=== PATIENT | male | born 1975 | race Caucasian/White ===

== ENCOUNTER 2023-08-14 10:38 | Outpatient (CLI) | payer BC, SELFPAY | END 2023-08-14 10:39 | disposition home or self-care (01) | PROVIDERS: PCP Family Medicine; Visit Provider Family Medicine | DX: Z00.00 Encounter for general adult medical examination without abnormal findings (principal); I10 Essential (primary) hypertension; R74.8 Abnormal levels of other serum enzymes; F10.10 Alcohol abuse, uncomplicated; Z13.6 Encounter for screening for cardiovascular disorders; Z13.0 Encounter for screening for diseases of the blood and blood-forming organs and certain disorders involving the immune mechanism | CPT/HCPCS: 80053; 80061 ==

== ENCOUNTER 2023-10-31 09:14 | Outpatient (CLI) | payer BC, SELFPAY ==
[2023-10-31 11:27] LABS: Hemoglobin A1C* 4.4 % (0-5.6)
== END 2023-10-31 09:15 | disposition home or self-care (01) ==
LOC: WOUND 09:14
PROVIDERS: PCP Family Medicine; Visit Provider Nurse Practitioner Family
DX: L89.893 Pressure ulcer of other site, stage 3 (principal); Z89.611 Acquired absence of right leg above knee; L24.A0 Irritant contact dermatitis due to friction or contact with body fluids, unspecified; E88.810 Metabolic syndrome
CPT/HCPCS: 11042; 36415; 73552; 83036; 87070; 87186; 97602; 99213

== ENCOUNTER 2023-12-04 13:39 | Outpatient (CLI) | payer OTHER, SELFPAY | END 2023-12-04 13:40 | disposition home or self-care (01) | PROVIDERS: PCP Family Medicine; Visit Provider Nurse Practitioner Family | DX: L89.893 Pressure ulcer of other site, stage 3 (principal); L24.A0 Irritant contact dermatitis due to friction or contact with body fluids, unspecified; E88.810 Metabolic syndrome; Z89.611 Acquired absence of right leg above knee | CPT/HCPCS: 97602; G0463 ==

== ENCOUNTER 2023-12-25 11:20 | Outpatient (CLI) | payer OTHER, SELFPAY | END 2023-12-25 11:21 | disposition home or self-care (01) | LOC: WOUND 11:20 | PROVIDERS: PCP Family Medicine; Visit Provider Nurse Practitioner Family | DX: L89.893 Pressure ulcer of other site, stage 3 (principal); L24.A0 Irritant contact dermatitis due to friction or contact with body fluids, unspecified; E88.810 Metabolic syndrome; Z89.611 Acquired absence of right leg above knee | CPT/HCPCS: 97602 ==

== ENCOUNTER 2024-02-12 10:42 | Outpatient (CLI) | payer OTHER, SELFPAY | END 2024-02-12 10:43 | disposition home or self-care (01) | LOC: WOUND 10:42 | PROVIDERS: PCP Family Medicine; Visit Provider Nurse Practitioner Family | DX: L89.893 Pressure ulcer of other site, stage 3 (principal); E88.810 Metabolic syndrome; L24.A0 Irritant contact dermatitis due to friction or contact with body fluids, unspecified; Z89.611 Acquired absence of right leg above knee | CPT/HCPCS: 97602; G0463 ==

== ENCOUNTER 2024-02-26 10:27 | Outpatient (CLI) | payer OTHER, SELFPAY | END 2024-02-26 10:28 | disposition home or self-care (01) | LOC: WOUND 10:27 | PROVIDERS: PCP Family Medicine; Visit Provider Nurse Practitioner Family | DX: L89.893 Pressure ulcer of other site, stage 3 (principal); L24.A0 Irritant contact dermatitis due to friction or contact with body fluids, unspecified; E88.810 Metabolic syndrome; Z86.14 Personal history of Methicillin resistant Staphylococcus aureus infection; Z89.611 Acquired absence of right leg above knee | CPT/HCPCS: 97602; G0463 ==

== ENCOUNTER 2024-03-11 09:07 | Outpatient (CLI) | payer OTHER, SELFPAY ==
--- NOTE | 2024-03-11 09:15 | MR_ITS ---
Patient: JOSE ROMERO Facility:?[facility] R[facility] Patient ID:?[id number] Site Patient ID:?[id number]. Site :?[id number] Study:?MRI-Extremity Right WO/W DOTAREM 20ML-03/11/2024 12:00:27 PM Ordering Physician:MACIEL Final Report: INDICATION: Pressure sore after amputation. Evaluate for osteomyelitis. TECHNIQUE: Noncontrast and contrast-enhanced MRI of the right leg. Uddqw-dy-ryyx includes the patient`s stump. 20 mL Dotarem intravenous gadolinium was administered for the postcontrast portion of the study. COMPARISON: No prior. FINDINGS: Postsurgical changes of above the knee amputation of the right leg. There is soft tissue edema like signal and increased enhancement within the stump which may reflect cellulitis changes. Trace fluid along me lateral margin of the stump is noted on coronal STIR image number 15 of series 6. Finding not highly suggestive of abscess. There is some limited bone marrow edema within the intramedullary space of the distal femur without confluent effacement of intramedullary fatty marrow to suggest osteomyelitis. There is thickening of the distal sciatic nerve over an approximately 5-6 centimeter longitudinal extent of the nerve which may indicate an element of stump neuroma.. IMPRESSION: 1. Postsurgical changes of above the knee amputation, right leg. 2. Soft tissue signal abnormality may indicate cellulitis changes. 3. No definitive abscess. 4. Limited reactive marrow edema within the central intramedullary space of the distal femur but without confluent effacement of fatty marrow to suggest osteomyelitis. 5. Fairly long segment thickening of the sciatic nerve distally which may indicate stump neuroma changes. Dictated by Uday Keane MD @ 03/12/2024 9:50:45 AM Signed by:?Uday Keane MD @03/12/2024 9:50:45 AM (Electronic Signature)
== END 2024-03-11 09:08 | disposition home or self-care (01) ==
PROVIDERS: PCP Family Medicine; Visit Provider Nurse Practitioner Family
DX: L89.899 Pressure ulcer of other site, unspecified stage (principal); Z89.611 Acquired absence of right leg above knee
CPT/HCPCS: 73720; 97602; A9575

== ENCOUNTER 2024-03-17 21:48 | Outpatient (CLI) | payer OTHER, SELFPAY ==
--- OUTSIDE RECORDS SUMMARY | 2024-03-25 15:55 | XMS_ITS | Clinical Summary ---
Author Name Unknown Organization [facility] Address [place], [place] [address] Care Team Providers Care Oriental Rug Stretcher Name Role Phone Odette Bowman DO Primary [...] cm (5' 11) 01/12/2018 11: 30 AM FLYING I INSTRUCTOR Body Mass Index 32.37 01/12/2018 11:30 AM FLYING I INSTRUCTOR Plan of Treatment Health Maintenance Due Date [...] CHOLESTEROL,TOTA L 257(H) 100 - 199 mg/dL [facility] TRIGLYCERIDES 514(H) <150 mg/dL [facility] HDL CHOLESTEROL 54 >40 mg/dL [facility] CHOL/HDL RATIO 4.76(H) <4.50 [facility] NON-HDL CHOLESTEROL 203 Undefined mg/dL [facility] LDL CHOLESTEROL ?? Invalid LDL when Trig >400 reflexed to measured LDL. [facility] PATIENT STATUS Fasting [facility] Blood specimen (specimen) BLOOD SPECIMEN / Unknown 02/11/2014 8:12 AM CDT 02/11/2014 8:06 AM CDT Anali Bailey MD CHEMISTRY [facility] INTERNAL ZIP [id number] [address] [place] [id number] from Last 3 Months or Most Recently Relevant to Health Maintenance Additional Health Concerns Infection Onset Date Last Indicated MRSA Comment:Soft tissue infection of right stump 10/201711/28/2017 0 11/28/2017 Advance Directives * Full Code (Latest Code Status on File) Date Activated Date Inactivated Comments 12/22/2016 11:17 PM 12/24/2016 8:25 PM Question Answer Comments Code Status Discussion: Per Existing Order Care Teams Oriental Rug Stretcher Relationship Specialty [place] [address] [place] [address] PCP - General Family Practice 11/29/17
== END 2024-03-17 21:49 | disposition home or self-care (01) ==
LOC: AMB 03-25 15:53
PROVIDERS: PCP Family Medicine; Visit Provider Family Medicine
DX: F10.129 Alcohol abuse with intoxication, unspecified (principal); F91.9 Conduct disorder, unspecified
CPT/HCPCS: A0425; A0429

== ENCOUNTER 2024-03-17 22:26 | Emergency (ER) | payer OTHER, SELFPAY ==
[2024-03-17 22:32] VITALS: BP 126/84; PULSE 76; RESP 16; TEMP 36.3; O2SAT 94; BMI 34.9
--- NOTE | 2024-03-17 22:46 | ED.GENADULT ---
HPI - General Adult General Chief complaint: Alcohol/Intoxication Stated complaint: ETOH Time Seen by Provider: 03/17/24 22:46 History of Present Illness HPI narrative: Pt was at friend, Sony's house, was drinking, intoxicated per EMS. Law enforcement was called, worried about pt wound on amputated leg and requesting evaluation. Pt does admit to 4 bacardi cokes today, declined detox per EMS. Pt drinks daily. Does admit to increased pain at sore, stump site, increased redness. denies fever or chills. 49-year-old man presenting to the emergency department brought by EMS. Concern of potential infection at right pdoal-ocd-vxan amputation stump. Apparently was at a friend's house drinking his usual Bacardi and Coke. It is unclear to me if there was an altercation with any case police were called who or to assist him home. Upon arrival home were concerned about potential infection and encouraged him to be evaluated in the emergency department. 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 Has had some surgical revisions and debridement since. Is seen regularly by the wound care clinic. It appears that was last seen about 6 days ago and is currently being seen about every 2 weeks. He reports having been treated for MRSA finishing treatment 10 days ago and now using regular vinegar baths/soaks. He feels that his stump/wound looks good. So much better than before. He does state that he has pain there all the time; this isn't new. The prosthetic does aggravate it. Without the prosthetic on he does feel quite comfortable. He has not had any fever. No new drainage. 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 Acknowledges that it is harder to do things that he used to enjoy doing like camping. Is now . Denies any SI or HI at this time. Mr. Taofya does endorse drinking every day. He is not interested in detox noting that he has been through [facility]. He is a Restorationism and has done the Restorationism thing he says. Does have a 14-year-old daughter who he admits historically has enjoyed camping. Prosthetic cares are through the limb lab Related Data Previous Rx's Medication Instructions Recorded amoxicillin 500 mg capsule 2,000 mg (4 x 500 mg) PO ONCE #4 06/22/22 caps gabapentin 300 mg capsule 900 - 1,200 mg (3 - 4 x 300 mg) PO 04/12/23 TID #900 caps naltrexone 50 mg tablet 50 mg PO QDAY #90 tabs 06/01/23 fluoxetine 40 mg capsule 40 mg PO QDAY #90 caps 06/18/23 losartan 50 mg tablet 50 mg PO QDAY #90 tabs 08/14/23 clotrimazole-betamethasone 1 1 applic topical BID #45 grams 12/04/23 %-0.05 % topical cream sildenafil (pulm.hypertension) 20 See Rx Instructions PO QDAY PRN 12/15/23 mg tablet sexual activity #30 tabs Allergies Allergy/AdvReac Type Severity Reaction Status Date / Time No Known Drug Allergies Allergy Verified 08/14/23 10:17 Review of Systems Status of ROS: Reports: 6 or more systems reviewed and unremarkable except as noted in History and below PFSH PFS Surgical History Status post above-knee amputation of right lower extremity ?Z89.611 - Acquired absence of right leg above knee (ICD-10) History of oral surgery (05/21/12) ?Z98.890 - Other specified postprocedural states (ICD-10) Social History What is your current living situation?: I presently have a place to live Problems where you live: no known problems In the past 12 months, utilities in danger of being shut off: no In past 12 months, lack of transportation kept you from medical appts, meetings, work, or getting things needed for daily living: no In the past 12 mos, have been you worried that your food would run out before you had money to buy more?: never true In the past 12 mos, the food you bought just didn't last and you didn't have money to buy more?: never true Smoking Status: Never smoker How often does anyone, including family, friends and others, physically hurt you: never How often does anyone, including family, friends and others, insult or talk down to you: never How often does anyone, including family, friends and others, threaten you with harm: never How often does anyone, including family, friends and others, scream or curse at you: never Little interest or pleasure in doing things: not at all Feeling down, depressed, or hopeless: not at all Exam Narrative: Exam Narrative: Pleasant. Flushed about his face and neck. Has a slightly congested tembre. Is easily conversant. Breathing easily. Lungs are clear. Heart in regular rate and rhythm. Abdomen is soft nontender. No evidence of self-harm on his person. Hands are rough consistent with work. Right leg in question with clear above the knee amputation. [place] skin but not inflamed. No significant calor. There to larger irregular areas of clean healing sores; erythematous but healed tissue. No open wounds or draining wounds otherwise. No odor. Const: Vital Signs, click to edit/add: Vital Signs - 24 hr 03/17/24 22:32 Temperature 97.4 F L Pulse Rate [Pulse Oximeter] 76 Respiratory Rate 16 Blood Pressure [Ri ght Upper Arm] 126/84 Pulse Oximetry 94 Oxygen Delivery Me thod Room Air Documenting provider has reviewed patient's vital signs: yes Course Vital Signs Vital signs: Initial Vital Signs Temperature 97.4 F L 03/17/24 22:32 Temperature Source Temporal Artery Scan 03/17/24 22:32 Pulse Rate 76 03/17/24 22:32 Pulse Rhythm Regular 03/17/24 22:32 Respiratory Rate 16 03/17/24 22:32 Blood Pressure 126/84 03/17/24 22:32 Blood Pressure Mean 98 03/17/24 22:32 Blood Pressure Position Supine 03/17/24 22:32 Pulse Oximetry 94 03/17/24 22:32 Oxygen Delivery Method Room Air 03/17/24 22:32 Vital Signs Temperature 97.4 F L 03/17/24 22:32 Pulse Rate 76 03/17/24 22:32 Respiratory Rate 16 03/17/24 22:32 Blood Pressure 126/84 03/17/24 22:32 Pulse Oximetry 94 03/17/24 22:32 Oxygen Delivery Method Room Air 03/17/24 22:32 Temperature 97.4 F L 03/17/24 22:32 Pulse Rate 76 03/17/24 22:32 Respiratory Rate 16 03/17/24 22:32 Blood Pressure 126/84 03/17/24 22:32 Pulse Oximetry 94 03/17/24 22:32 Oxygen Delivery Method Room Air 03/17/24 22:32 Medical Decision Making MDM Narrative Medical decision making narrative: Mr. Tafoya does appear well other than mildly intoxicated. He is not interested in detox. [facility] will be right now returning him home. He does desat a little bit 88% on room air when sleeping. Was given a little bit of oxygen. He does normally and reliably use his CPAP he maintains. I do not think there is a new infection. He does have close follow-up with the wound clinic. Unfortunately is here without his prosthetic at this time. Will attempt to find him a sober ride or he can sleep in the department until more sober. Would be helpful to have prosthetic to facilitate ease of transport home. See patient discharge plan for further discussion Discharge Plan Discharge Clinical Impression: Alcohol intoxication Patient Disposition: Home w/ Parent or Adult Condition: Stable Additional Instructions: If you cannot return to detox, I would encourage you certainly to cut back in your alcohol consumption. Consider returning to meetings. Keep a close eye of course on your wound. See if you can be evaluated sooner in the wound clinic; yet this week if possible Do consider ways that you might be able to go camping with your daughter; see if you can make that happen. Prescriptions: No Action losartan 50 mg tablet 50 mg PO QDAY Qty: 90 3RF amoxicillin 500 mg capsule 2,000 mg PO ONCE Qty: 4 2RF Rx Instructions: 1 HR PRIOR TO APPT gabapentin 300 mg capsule 900 - 1,200 mg PO TID Qty: 900 3RF Rx Instructions: 900mg (3 capsules) morning and midday. 1200mg (4 capsules) HS naltrexone 50 mg tablet 50 mg PO QDAY Qty: 90 3RF fluoxetine 40 mg capsule 40 mg PO QDAY Qty: 90 3RF clotrimazole-betamethasone 1-0.05 % cream 1 applic topical BID Qty: 45 2RF sildenafil (pulm.hypertension) 20 mg tablet See Rx Instructions PO QDAY PRN (Reason: sexual activity) Qty: 30 6RF Rx Instructions: 1-5 tablets, orally every day PRN; administer doses at least 4-6 hours apart Follow Up/Referrals: Rodrigo Hughes MD [Primary Care Provider] - Stand Alone Forms: [employer] Info Instructions
--- OUTSIDE RECORDS SUMMARY | 2024-03-17 23:28 | XMS_ITS | Clinical Summary ---
Author Name Unknown Organization [facility] Address [place], [place] [address] Care Team Providers Care Spot Welder Name Role Phone Odette Bowman DO Primary Care Provider Allergies No known active allergies Medications Medication Sig Dispensed Refills Start Date End Date Status loratadine-pseudoe phedrine, 10-240 mg, 24 hr (CLARITIN-D 24 HOUR) 10-240 mg per tablet Take 1 tablet by mouth once daily. Active traZODone (DESYREL) 100 mg tablet Take 100 mg by mouth at bedtime. Take 100mg by mouth at bedtime 3 11/20/2017 Active medication order composerIndication s:Above knee amputation of right lower extremity (HC) Wheelchair Diagnosis: right below the knee amputation Lifetime. 1 unit 01/29/2018 Active gabapentin (NEURONTIN) 300 mg capsuleIndications :Neuropathic pain Take 900 mg by mouth 3 times daily. 150 capsule 08/13/2018 Active hydrOXYzine pamoate (VISTARIL) 25 mg capsuleIndications :Adjustment disorder with anxiety Take 1 capsule by mouth 3 times daily if needed for Anxiety. 270 capsule 1 01/01/2019 Active CPAPIndications:OS A on CPAP CPAP machine for home use at pressure: 13cn/H2O , Heated humidifier x 1, Humidifier chamber x 1, 1 unit 11 01/18/2019 Active FLUoxetine (PROZAC) 20 mg capsuleIndications :Anxiety and depression TAKE 1 CAPSULE BY MOUTH EVERY DAY IN THE MORNING 30 capsule 1 07/24/2019 Active CPAPIndications:OS A on CPAP CPAP machine for home use at pressure: 13 cmw , Heated humidifier x 1 q 5 yr, Humidifier chamber x 1 q 6 mo, Full face mask x1 q 3mos, with cushion x 1 q mo, Heated tubing x 1 q 3 mo, Headgear x 1 q 6 mo, Filters: Disposable x 2 q mo non-disposable filters x1 q 6mo, Length of Need: 99 months, Frequency of use: Daily 1 Device 11 08/11/2020 Active Active Problems Problem Noted Date Diagnosed Date Above knee amputation of right lower extremity 0 01/29/2018 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 ALLERGY, UNSPECIFIED 07/24/2001 Arterial bleed, intraoperative Necrotizing fasciitis Resolved Problems Problem Noted Date Diagnosed Date Resolved Date Below knee amputation status, right 01/29/2018 01/29/2018 Sepsis due to group A Streptococcus 12/23/2016 01/29/2018 Thoracic or lumbosacral neur itis or radiculitis, unspecified 08/06/2007 03/20/2015 Closed dislocation of acromi oclavicular (joint) 09/14/2004 03/20/2015 TOBACCO USE 05/12/2003 11/12/2013 Severe sepsis 01/29/2018 Septic shock 01/29/2018 Immunizations Name Administration Dates Next Due Influenza, IIV4 11/28/2017 Tdap 05/21/2012 Family History Medical History Relation Name Comments Hypertension Father Other Mother gluten issues Genetic Other 1 Genetic Other 2 Relation Name Status Comments Brother Alive Father Alive Maternal Grandfather Maternal Grandmother Alive Mother Alive Other 1 Other 2 Paternal Grandfather Paternal Grandmother Social History Tobacco Use Types Packs/Day Years Used Date Smoking Tobacco: Never Smokeless Tobacco: Former Chew Quit: 12/28/2013 Tobacco Cessation:Counseling Given: Yes Alcohol Use Standard Drinks/Week Comments Yes 21 (1 standard drink = 0.6 oz pu re alcohol) 2-3 daily beer PHQ-2 Answer Date Recorded PHQ-2 Score 1 01/27/2019 Social Connections Answer Date Recorded Frequency of Communication with Friends and Fami ly Not on file 11/02/2023 Financial Resource Strain Answer Date R ecorded Difficulty of Paying Living Expenses Not on file 11/27/2021 Difficulty of Paying Living Expenses Not on file 11/27/2021 Sex and Gender Information Value Date Recorded Sex Assigned at Not on file Gender Identity Not on file Sexual Orientation Not on file Obstetrics History Last Filed Vital Signs Vital Sign Reading Time Taken Comments Blood Pressure 138/80 03/19/2019 12:56 PM CDT Pulse 96 03/19/2019 12:56 PM CDT Temperature 36.8 ??C (98.2 ??F) 03/19/2019 1 2:56 PM CDT Respiratory Rate 18 03/19/2019 12:5 6 PM CDT Oxygen Saturation 93% 03/19/2019 12: 56 PM CDT Inhaled Oxygen Concentration - - Weight 105.3 kg (232 lb 1.6 oz) 019 12:56 PM CDT Height 180.3 cm (5' 11) 01/12/2018 11: 30 AM DIGITAL MARKETING MANAGER Body Mass Index 32.37 01/12/2018 11:30 AM DIGITAL MARKETING MANAGER Plan of Treatment Health Maintenance Due Date Last Done Comments HIV for age 15-65 1989 Hepatitis C screening for age 18-79 1992 BMI (ht and wt on same day) for age 18+ 01/12/2019 01/12/2018, 05/03/2016, 04/19/2016, Additional history exists Colonoscopy through age 75 2019 Lipids for age 45-75 2019 02/11/2014, 02/11/2014, 11/12/2013, Additional history exists Depression screening for age 12+ 08/13/2019 08/13/2018, 04/04/2018, 01/29/2018, Additional history exists Tetanus booster 05/21/2022 05/21/2012 (Comp leted outside of [facility]), 05/21/2012 COVID-19 vaccine series ( - 2022- season) 2023 Zoster (shingles) series for age 50+ (1 of 2) 2024 Influenza for age 50-64 07/28/2024 11/28/2017 Tdap Completed 05/21/2012 Pneumococcal series for age 6-64 Aged Out No longer eligible based on patient's age to complete this topic Procedures Procedure Name Priority Date/Time Associated Diagnosis Comments LIPID PANEL W REFLEX MEASURED LDL Routine 02/11/2014 8:12 AM CDT Hypertriglyceridemi a from Last 3 Months or Most Recently Relevant to Health Maintenance Results * (ABNORMAL) LIPID PANEL W REFLEX MEASURED LDL (02/11/2014 8:12 AM CDT) CHOLESTEROL,TOTA L 257(H) 100 - 199 mg/dL [facility] TRIGLYCERIDES 514(H) <150 mg/dL [facility] HDL CHOLESTEROL 54 >40 mg/dL [facility] CHOL/HDL RATIO 4.76(H) <4.50 [facility] NON-HDL CHOLESTEROL 203 Undefined mg/dL [facility] LDL CHOLESTEROL ?? Invalid LDL when Trig >400 reflexed to measured LDL. [facility] PATIENT STATUS Fasting [facility] Blood specimen (specimen) BLOOD SPECIMEN / Unknown 02/11/2014 8:12 AM CDT 02/11/2014 8:06 AM CDT Anali Bailey MD CHEMISTRY [facility] INTERNAL ZIP [id number] [address] [place] [id number] from Last 3 Months or Most Recently Relevant to Health Maintenance Additional Health Concerns Infection Onset Date Last Indicated MRSA Comment:Soft tissue infection of right stump 10/201711/28/2017 0 11/28/2017 Advance Directives * Full Code (Latest Code Status on File) Date Activated Date Inactivated Comments 12/22/2016 11:17 PM 12/24/2016 8:25 PM Question Answer Comments Code Status Discussion: Per Existing Order Care Teams Spot Welder Relationship Specialty [place] [address] [place] [address] PCP - General Family Practice 11/29/17
--- NOTE | 2024-03-17 23:51 | PC.NURSE ---
attempted to call pt's ex- per his request, no answer.
== END 2024-03-18 01:23 | disposition home or self-care (01) ==
PROVIDERS: Emergency Provider Family Medicine; PCP Family Medicine
DX: F10.129 Alcohol abuse with intoxication, unspecified (principal)
CPT/HCPCS: 99282; 99283; 99284

== ENCOUNTER 2024-03-25 10:25 | Outpatient (CLI) | payer OTHER, SELFPAY ==
--- OUTSIDE RECORDS SUMMARY | 2024-03-25 10:27 | XMS_ITS | Clinical Summary ---
Author Name Unknown Organization [facility] Address [place], [place] [address] Care Team Providers Care Senior Care Specialist Name Role Phone Odette Bowman DO Primary [...] cm (5' 11) 01/12/2018 11: 30 AM INSURANCE FOLLOW UP REP Body Mass Index 32.37 01/12/2018 11:30 AM INSURANCE FOLLOW UP REP Plan of Treatment Health Maintenance Due Date [...] CHOLESTEROL,TOTA L 257(H) 100 - 199 mg/dL [facility] TRIGLYCERIDES 514(H) <150 mg/dL [facility] HDL CHOLESTEROL 54 >40 mg/dL [facility] CHOL/HDL RATIO 4.76(H) <4.50 [facility] NON-HDL CHOLESTEROL 203 Undefined mg/dL [facility] LDL CHOLESTEROL ?? Invalid LDL when Trig >[address] measured [address] [facility] PATIENT STATUS Fasting [facility] Blood specimen (specimen) BLOOD SPECIMEN / Unknown 02/11/2014 8:12 AM CDT 02/11/2014 8:06 AM CDT Anali Bailey MD CHEMISTRY [facility] INTERNAL ZIP [id number] [address] [place] [id number] from Last 3 Months or Most Recently Relevant to Health Maintenance Additional Health Concerns Infection Onset Date Last Indicated MRSA Comment:Soft tissue infection of right stump 10/201711/28/2017 0 11/28/2017 Advance Directives * Full Code (Latest Code Status on File) Date Activated Date Inactivated Comments 12/22/2016 11:17 PM 12/24/2016 8:25 PM Question Answer Comments Code Status Discussion: Per Existing Order Care Teams Senior Care Specialist Relationship Specialty [place] [address] [place] [address] PCP - General Family Practice 11/29/17
== END 2024-03-25 10:26 | disposition home or self-care (01) ==
LOC: WOUND 10:25
PROVIDERS: PCP Family Medicine; Visit Provider Nurse Practitioner Family
DX: L89.893 Pressure ulcer of other site, stage 3 (principal); L24.A0 Irritant contact dermatitis due to friction or contact with body fluids, unspecified; E88.810 Metabolic syndrome; Z89.611 Acquired absence of right leg above knee
CPT/HCPCS: G0463

== ENCOUNTER 2024-04-11 13:29 | Emergency (ER) | payer OTHER, SELFPAY ==
[2024-04-11] VITALS (16 sets, daily range): BP systolic 123–157; BP diastolic 76–118; PULSE 75–160; RESP 20; O2SAT 89–100; BMI 32.5
--- NOTE | 2024-04-11 13:42 | CT_ITS ---
Patient: JOSE ROMERO Facility:?[facility] Patient ID:?[id number] Site Patient ID:?[id number]. Site :?[id number] Study:?CT-Head WITHOUT-04/11/2024 2:30:07 PM Ordering Physician:?DR. AMATO Final Report: INDICATION: GIL X 3 MONTHS FALLS TO LEFT TECHNIQUE: CT of the head was performed without IV contrast. COMPARISON: None. FINDINGS: Parenchyma: Ill-defined 5.9 x 5.4 x 3.9 centimeter (4/27, 8/47) right frontal temporal lobe mass with surrounding edema and mass effect. Ventricles and extra-axial spaces: Effacement of the right lateral and 3rd ventricles. 1.0 centimeter of right to left midline shift. Visualized paranasal sinuses: Clear. Mastoid air cells: Clear. Bones: No focal abnormality. Additional comment: None. IMPRESSION: Ill-defined 5.9 x 5.4 x 3.9 centimeter right frontal temporal lobe mass with surrounding edema and mass effect leading to effacement of the right lateral and 3rd ventricles and 1.0 centimeter of eacuc-il-zcgd midline shift; this is concerning for malignancy. Consider MRI with and without contrast for further evaluation. Please note that all CT scans at this facility use dose modulation, iterative reconstruction, and/or weight-based dosing when appropriate to reduce radiation dose to as low as reasonably achievable. Dictated by Juan Salas MD @ 04/11/2024 2:38:45 PM ----- ADDENDUM ----- Findings communicated to Dr. Amato at 2:40 p.m. on 04/11/2024. Dictated by Juan Salas MD @ Apr 11 2024 2:44PM Signed by:?Juan Salas MD @04/11/2024 2:38:45 PM (Electronic Signature)
--- NOTE | 2024-04-11 14:15 | MR_ITS ---
Patient: JOSE ROMERO Facility:?[facility] RIS Patient ID:?[id number] Site Patient ID:?[id number]. Site :?[id number] Study:?MRI-Head W/ and W/O Cont 20 CC DOATERM-04/11/2024 5:01:01 PM Ordering Physician:?YENI AMATO Final Report: Indication: GIL FOR 3 MONTHS Technique: Noncontrast sagittal T1, axial FLAIR, T2 turbo spine echo, and diffusion weighted images. Supplemental post contrast T1 weighted axial and coronal sequences are provided after administration of 20 mL Dotarem gadolinium-based IV contrast. Comparison: CT 516 24 Findings: There is no evidence of diffusion restriction to suggest acute ischemia. There is a large heterogeneous enhancing cystic and solid mass in the right temporal lobe with predominantly cystic component medially and solid nodular enhancing component laterally. The lateral aspect of the mass invades and extends through the right squamosal temporal bone with enhancement and edema along the right subgaleal scalp (series 16, image 85). Multiple foci of susceptibility artifact within the mass likely represent combination of enlarged blood vessels and blood products. Moderate vasogenic edema in the right temporal lobe, right temporal stem, right basal ganglia and right parietal lobe. Diffuse effacement of right cerebral sulci. There is diffuse effacement of the right lateral ventricle. 1.1 centimeter leftward midline shift. Medial displacement of the right sylvian fissure. Impression: 1. 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 Multiple foci of susceptible artifact in the mass likely representing blood vessels as well as blood products. Findings concerning for high-grade intraparenchymal neoplasm such as glioblastoma. Although the lesion is presumed intra-axial, given the bony invasion, solitary fibrous tumor/hemangiopericytoma is in the differential. 2. Moderate edema in the right temporal lobe, right basal ganglia, and right parietal lobe. Diffuse effacement of right cerebral sulci. Stable 1.1 centimeter leftward midline shift with diffuse effacement of the 3rd ventricle and complete effacement of the right lateral ventricle. Dictated by Ez Cartagena MD @ 04/11/2024 5:25:57 PM Signed by:?Ez Cartagena MD @04/11/2024 5:25:57 PM (Electronic Signature)
[2024-04-11 14:17] LABS: Basophils Percent Auto 0.3 % (0.0-3.0); Hematocrit 42.6 % (37.0-53.0); Hemoglobin* 14.8 gm/dL (13.5-17.5); Immature Granulocytes Pct Auto 0.1 %; Lymphocytes Percent Auto 15.4 % (20-44); Mean Corpuscular HGB Conc 35 gm/dL (32-36); Mean Corpuscular Hemoglobin 34 pg (26-34); Mean Corpuscular Volume 97 fL (80-100); Monocytes Percent Auto 10.9 % (0.0-11.0); Neutrophils Percent Auto 72.3 % (42.0-72.0); Platelet Count* 249 K/uL (140-440); RDW Coefficient of Variation % 12.6 % (11.5-15.5); Red Blood Count 4.39 m/uL (4.30-5.90)
[2024-04-11 14:23] LABS: Slide Review Reflex No
[2024-04-11 14:31] LABS: Albumin* 4.4 g/dL (3.3-5.0); Chloride* 104 mmol/L (96-114)
[2024-04-11 14:32] LABS: Potassium* 4.4 mmol/L (3.6-5.1); Sodium* 139 mmol/L (135-149)
[2024-04-11 14:34] LABS: Creatinine* 0.8 mg/dL (0.5-1.5); Est. Creatinine Clearance* 121.25; Estimated Glomerular Filt Rate 108 ml/min; INR 0.99 (0.91-1.10); Prothrombin Time 13.7 Seconds
[2024-04-11 14:35] LABS: Alanine Aminotransferase* 56 U/L (4-50); Alkaline Phosphatase* 71 U/L (40-150); Anion Gap 10 mEq/L (7-15); Aspartate Amino Transferase* 40 U/L (12-35); Bilirubin Direct* 0.2 mg/dL (0.0-0.5); Bilirubin Total* 0.8 mg/dL (0.1-1.5); Blood Urea Nitrogen* 20 mg/dL (7-30); Calcium* 10.1 mg/dL (8.4-10.6); Carbon Dioxide* 25 mmol/L (20-32); Glucose* 116 mg/dL (60-115); Total Protein* 8.5 g/dL (6.0-8.3)
[2024-04-11 14:38] LABS: C Reactive Protein* 1.1 mg/dL (0.5-1.0)
[2024-04-11 14:45] LABS: Ethanol* < 0.01 % (0.01-0.03)
--- OUTSIDE RECORDS SUMMARY | 2024-04-11 14:48 | XMS_ITS | Clinical Summary ---
Author Name Unknown Organization [facility] Address [place], [place] [address] Care Team Providers Care Planning Lead Name Role Phone Odette Bowman DO Primary [...] 11/12/2013 Severe sepsis 01/29/2018 Septic shock 01/29/2018 Encounters Date Type Department Care Team Description 03/28/2024 Transcribe Orders [facility] [address] [facility] [address] [place], [place] [id number] Padmini Mirza NP from Last 3 Months Immunizations Name Administration Dates Next Due Influenza, [...] cm (5' 11) 01/12/2018 11: 30 AM [employer] SAL[employer]EC[employer] Body Mass Index 32.37 01/12/2018 11:30 AM [employer] SAL[employer] EXEC[employer]IVE Plan of Treatment Upcoming Encounters Date Type Department Care Team (Late st Contact Info) Description 04/16/2024 10:30 AM CDT Office Visit [facility] [address] [id number] [place] [address] Pretty Thorne MD [address] [facility] [address] [place] [address] Health Maintenance Due Date Last Done Comments [...] CHOLESTEROL,TOTA L 257(H) 100 - 199 mg/dL [facility] TRIGLYCERIDES 514(H) <150 mg/dL [facility] HDL CHOLESTEROL 54 >40 mg/dL [facility] CHOL/HDL RATIO 4.76(H) <4.50 [facility] NON-HDL CHOLESTEROL 203 Undefined mg/dL [facility] LDL CHOLESTEROL ?? Invalid LDL when Trig >400 reflexed to measured LDL. [facility] PATIENT STATUS Fasting [facility] Blood specimen (specimen) BLOOD SPECIMEN / Unknown 02/11/2014 8:12 AM CDT 02/11/2014 8:06 AM CDT Anali Bailey MD CHEMISTRY [facility] [place] [address]IP [id number] [place] [address] from Last 3 Months or Most Recently Relevant to Health Maintenance Additional Health Concerns Infection Onset Date Last Indicated MRSA Comment:Soft tissue infection of right stump 10/201711/28/2017 0 11/28/2017 Advance Directives * Full Code (Latest Code Status on File) Date Activated Date Inactivated Comments 12/22/2016 11:17 PM 12/24/2016 8:25 PM Question Answer Comments Code Status Discussion: Per Existing Order Care Teams Planning Lead Relationship Specialty [place] [address] [place] [address] PCP - General Family Practice 11/29/17
--- NOTE | 2024-04-11 15:06 | ED_ITS ---
HPI - General Adult General Date Seen: 04/11/24 Chief complaint: Headache/Migraine Stated complaint: Headaches and falls to the left Time Seen by Provider: 04/11/24 13:39 Source: patient, RN notes reviewed and old records reviewed Mode of arrival: ambulatory Limitations: no limitations History of Present Illness HPI narrative: Patient is a 49-year-old male here for evaluation of headaches and falls. He was seen at urgent care today and then referred here. He was actually seen at urgent care a few days ago, he says he has been having headaches daily for the past 3 months, thought it was a sinus infection and was treated with antibiotics on Monday but has not improved. Starting yesterday, he has had multiple falls which is very unusual for him. 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 He has fallen he says to the left multiple times just kind of out of the blue since yesterday. He says that he feels like his normal mechanisms which helped him catch his balance if he becomes a little off balance just are not there. Headache is frontal, he describes it as feeling like a brain freeze, worse in the morning. He has not had nausea or vomiting. 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 Does have a history of pretty regular alcohol use, though he says he does not drink when he is driving his truck and has no history of alcohol withdrawal. He denies any current drug use, says he used to smoke pot. He does not smoke cigarettes. Related Data Previous Rx's Medication Instructions Recorded naltrexone 50 mg tablet 50 mg PO QDAY #90 tabs 06/01/23 fluoxetine 40 mg capsule 40 mg PO QDAY #90 caps 06/18/23 losartan 50 mg tablet 50 mg PO QDAY #90 tabs 08/14/23 clotrimazole-betamethasone 1 1 applic topical BID #45 grams 12/04/23 %-0.05 % topical cream sildenafil (pulm.hypertension) 20 See Rx Instructions PO QDAY PRN 12/15/23 mg tablet sexual activity #30 tabs gabapentin 300 mg capsule 900 - 1,200 mg (3 - 4 x 300 mg) PO 04/05/24 TID #900 caps amoxicillin 875 mg-potassium 1 tab PO BID 7 days #14 tabs 04/08/24 clavulanate 125 mg tablet dexamethasone 4 mg tablet 4 mg PO TID #21 tabs 04/11/24 levetiracetam 500 mg tablet 500 mg PO BID #60 tabs 04/11/24 (Keppra) Allergies Allergy/AdvReac Type Severity Reaction Status Date / Time No Known Drug Allergies Allergy Verified 04/11/24 11:49 Review of Systems Status of ROS: Reports: 10 or more systems reviewed and unremarkable except as noted in History and below PFSH PFS Surgical History Status post above-knee amputation of right lower extremity ?Z89.611 - Acquired absence of right leg above knee (ICD-10) History of oral surgery (05/21/12) ?Z98.890 - Other specified postprocedural states (ICD-10) Social History What is your current living situation?: I presently have a place to live Problems where you live: no known problems In the past 12 months, utilities in danger of being shut off: no In past 12 months, lack of transportation kept you from medical appts, meetings, work, or getting things needed for daily living: no In the past 12 mos, have been you worried that your food would run out before you had money to buy more?: never true In the past 12 mos, the food you bought just didn't last and you didn't have money to buy more?: never true Smoking Status: Never smoker Non-prescribed substance use: denies use How often does anyone, including family, friends and others, physically hurt you : never How often does anyone, including family, friends and others, insult or talk down to you: never How often does anyone, including family, friends and others, threaten you with harm: never How often does anyone, including family, friends and others, scream or curse at you: never Little interest or pleasure in doing things: not at all Feeling down, depressed, or hopeless: not at all Exam Narrative: Exam Narrative: Vital signs as noted above. In general, an alert, well-appearing patient. Head: Normocephalic, atraumatic. Eyes: Pupils are equal reactive. Extraocular movements are full. Conjunctivae are normal. No nystagmus. ENT: Mucous membranes are moist. Throat is normal. Neck: Supple without lymphadenopathy. Heart: Regular rate and rhythm. No murmur or rub. Lungs: Clear bilaterally. No increased work of breathing, crackles or wheezes. Abdomen: Soft and nontender. No organomegaly. Extremities: Well perfused. No edema. No calf tenderness. Pulses intact. Neurologic: Patient is alert and oriented to person and place. Speech is fluent. Face is symmetric. Strength is equal in all extremities, ataxia noted with left arm but not left leg. Right leg not tested secondary to prosthesis. Affect: Normal. Skin: Warm and dry. Well perfused. Const: Vital Signs, click to edit/add: Vital Signs - 24 hr 04/11/24 13:39 04/11/24 15:03 04/11/24 16:04 Pulse Rate 82 Pulse Rate [Left P ulse Oximeter] 92 Respiratory Rate 20 Blood Pressure 125/76 Blood Pressure [Le ft Upper Arm] 123/81 Pulse Oximetry 100 [facility] 04/11/24 16:15 04/11/24 16:30 04/11/24 16:32 Pulse Rate 80 84 80 Pulse Rate [Left P ulse Oximeter] Respiratory Rate Blood Pressure 128/82 Blood Pressure [Le ft Upper Arm] Pulse Oximetry 91 90 94 [facility] 04/11/24 16:45 04/11/24 17:00 04/11/24 17:02 Pulse Rate 75 79 77 Pulse Rate [Left P ulse Oximeter] Respiratory Rate Blood Pressure 152/118 H Blood Pressure [Le ft Upper Arm] Pulse Oximetry 90 89 90 [facility] 04/11/24 17:15 04/11/24 17:30 04/11/24 17:32 Pulse Rate 81 80 80 Pulse Rate [Left P ulse Oximeter] Respiratory Rate Blood Pressure 157/113 H Blood Pressure [Le ft Upper Arm] Pulse Oximetry 91 93 93 [facility] 04/11/24 17:45 04/11/24 18:00 04/11/24 18:02 Pulse Rate 82 76 160 H Pulse Rate [Left P ulse Oximeter] Respiratory Rate Blood Pressure 148/89 H Blood Pressure [Le ft Upper Arm] Pulse Oximetry 92 93 92 [facility] 04/11/24 18:32 Pulse Rate Pulse Rate [Left P ulse Oximeter] Respiratory Rate Blood Pressure 139/95 H Blood Pressure [Le ft Upper Arm] Pulse Oximetry Oxygen Delivery Ne thod Documenting provider has reviewed patient's vital signs: yes Course Course ED Course: On patient's arrival, I had ordered a CT scan of the head without contrast as we ll as CT angiogram of the head and neck. Patient went over for CT after his initial evaluation and I reviewed the head CT and then canceled the CT angiogram of the neck and head. Patient had an obvious mass in the right temporal region with surrounding edema. I ordered an MRI at that point. I did do some basic labs, his white blood cell count and hemoglobin were normal, metabolic panel was unremarkable, blood sugar 116. LFTs showed mild elevations in AST and ALT otherwise unremarkable. Blood alcohol was negative. INR was normal. MRI reviewed by myself, read by Radiology as follows:Findings: There is no evidence of diffusion restriction to suggest acute ischemia. There is a large heterogeneous enhancing cystic and solid mass in the right temporal lobe with predominantly cystic component medially and solid nodular enhancing component laterally. The lateral aspect of the mass invades and extends through the right squamosal temporal bone with enhancement and edema along the right s ubgaleal scalp (series 16, image 85). Multiple foci of susceptibility artifact within the mass likely represent combination of enlarged blood vessels and blood products. Moderate vasogenic edema in the right temporal lobe, right temporal stem, right basal ganglia and right parietal lobe. Diffuse effacement of right cerebral sulci. There is diffuse effacement of the right lateral ventricle. 1.1 centimeter leftward midline shift. Medial displacement of the right sylvian fissure. Impression: 1. 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 Multiple foci of susceptible artifact in the mass likely representing blood vessels as well as blood products. Findings concerning for high-grade intraparenchymal neoplasm such as glioblastoma. Although the lesion is presumed intra-axial, given the bony invasion, solitary fibrous tumor/hemangiopericytoma is in the differential. 2. Moderate edema in the right temporal lobe, right basal ganglia, and right parietal lobe. Diffuse effacement of right cerebral sulci. Stable 1.1 centimeter leftward midline shift with diffuse effacement of the 3rd ventricle and complete effacement of the right lateral ventricle. I have discussed all this with the patient. Obviously a lot for him to take in right now. He lives alone but says he has family and friends who he can call on to help him. He does feel he can probably manage at home, he has a wheeled walker it sounds like and I have recommended that he use that for now. I did talk with Dr. Her, on-call for Neurosurgery with [facility]. He recommended Decadron 4 mg t.i.d. as well as Keppra 500 mg b.i.d.. I gave patient initial doses of these here and then sent prescriptions for those. I also prescribed some oxycodone for him as he felt it would be helpful to have something else to take for headache. 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 He says that he will have no difficulty abstaining from alcohol for right now. We discussed that with his balance being tenuous that alcohol certainly not a good idea. I am hopeful that may be Decadron will help this to some degree. I have stressed that he should use his walker, he should not drive until evaluated by Neurosurgery for recommendations. If at any time he feels he cannot manage safely at home, or if he has acute worsening, severe uncontrolled headache, vomiting, neurologic changes or other concerns, return here or present to [facility]. Neurosurgery clinic should be calling him tomorrow to arrange for outpatient follow-up next week. Vital Signs Vital signs: Initial Vital Signs Temperature Source Temporal Artery Scan 04/11/24 13:39 Pulse Rate 92 04/11/24 13:39 Pulse Rhythm Regular 04/11/24 13:39 Pulse Strength 3+ Normal 04/11/24 13:39 Respiratory Rate 20 04/11/24 13:39 Blood Pressure 123/81 04/11/24 13:39 Blood Pressure Mean 95 04/11/24 13:39 Blood Pressure Position Sitting 04/11/24 13:39 Pulse Oximetry 100 04/11/24 13:39 Oxygen Delivery Method Room Air 04/11/24 13:39 Vital Signs Pulse Rate 92 04/11/24 13:39 Respiratory Rate 20 04/11/24 13:39 Blood Pressure 123/81 04/11/24 13:39 Pulse Oximetry 100 04/11/24 13:39 Oxygen Delivery Method Room Air 04/11/24 13:39 Pulse Rate 160 H 04/11/24 18:02 Respiratory Rate 20 04/11/24 13:39 Blood Pressure 139/95 H 04/11/24 18:32 Pulse Oximetry 92 04/11/24 18:02 Oxygen Delivery Method Room Air 04/11/24 13:39 Medications Administered Medications: Discontinued Medications Generic Name Dose Route Start Last Admin Trade Name Anika PRN Reason Stop Dose Admin Dexamethasone 4 mg 04/11/24 18:16 04/11/24 18:52 Dexamethasone 4 Mg Tablet PO 04/11/24 18:17 4 mg ONCE ONE Administration Ibuprofen 400 mg 04/11/24 15:03 04/11/24 16:01 Ibuprofen 200 Mg Tablet PO 04/11/24 15:04 400 mg ONCE ONE Administration Levetiracetam 500 mg 04/11/24 18:16 04/11/24 18:53 Levetiracetam 500 Mg Tablet PO 04/11/24 18:17 500 mg ONCE ONE Administration Medical Decision Making Lab Data Labs: Lab Results 04/11/24 Range/Units 13:55 WBC 7.00 (4.50-11.00) K/uL RBC 4.39 (4.30-5.90) m/uL Hgb 14.8 (13.5-17.5) gm/dL Hct 42.6 (37.0-53.0) % MCV 97 (80-100) fL MCH 34 (26-34) pg MCHC 35 (32-36) gm/dL RDW Coeff of Shimon 12.6 (11.5-15.5) % Plt Count 249 (140-440) K/uL Neut % (Auto) 72.3 H (42.0-72.0) % Lymph % (Auto) 15.4 L (20-44) % [place] % (Auto) 10.9 (0.0-11.0) % Eos % (Auto) 1.0 (0.0-7.0) % Baso % (Auto) 0.3 (0.0-3.0) % Neut # (Auto) 5.10 (1.7-7.0) K/uL Lymph # (Auto) 1.10 (0.90-2.90) K/uL [place] # (Auto) 0.80 (0.00-0.90) K/UL Eos # (Auto) 0.10 (0.00-0.50) K/uL Baso # (Auto) 0.00 (0.00-0.30) K/uL Abs Immat Gran (auto) 0.00 (0.00-0.30) K/uL Imm/Tot Granulo (auto) 0.1 % INR 0.99 (0.91-1.10) Sodium 139 (135-149) mmol/L Potassium 4.4 (3.6-5.1) mmol/L Chloride 104 (96-114) mmol/L Carbon Dioxide 25 (20-32) mmol/L Anion Gap 10 (7-15) mEq/L BUN 20 (7-30) mg/dL Creatinine 0.8 (0.5-1.5) mg/dL Estimated Creat Clear 121.25 Estimated GFR 108 ml/min Glucose 116 H (60-115) mg/dL Calcium 10.1 (8.4-10.6) mg/dL Total Bilirubin 0.8 (0.1-1.5) mg/dL Direct Bilirubin 0.2 (0.0-0.5) mg/dL AST 40 H (12-35) U/L ALT 56 H (4-50) U/L Alkaline Phosphatase 71 (40-150) U/L C-Reactive Protein 1.1 H (0.5-1.0) mg/dL Total Protein 8.5 H (6.0-8.3) g/dL Albumin 4.4 (3.3-5.0) g/dL Ethyl Alcohol < 0.01 L (0.01-0.03) % Discharge Plan Discharge Clinical Impression: Mass, brain Patient Disposition: Home, Self-Care Condition: Stable Additional Instructions: Take new medications as prescribed including Decadron, a steroid, and Keppra, an antiseizure medicine. Someone from the neurosurgery clinic at [facility] should call you tomorrow to arrange for follow-up with them next week. I would recommend use of a walker for now. Please have friends and family help with running errands, grocery store, etcetera for the time being until we see whether your balance improves on medication. If you feel that you are not able to manage at home due to fall risk, even with a walker, you can return to our ER or you can present to [facility] ER. Return at any time for acute worsening, severe headache, vomiting, etcetera. Oxycodone prescribed if needed for headache. Recommend Tylenol 1000 mg 3 times daily at baseline. Please do not drink at the present time, oxycodone should not be combine with alcohol, and alcohol will worsen your balance. You should not drive until after further evaluation with Neurosurgery. Prescriptions: New dexamethasone 4 mg tablet 4 mg PO TID Qty: 21 0RF levetiracetam [Keppra] 500 mg tablet 500 mg PO BID Qty: 60 2RF No Action losartan 50 mg tablet 50 mg PO QDAY Qty: 90 3RF amoxicillin-pot clavulanate 875-125 mg tablet 1 tab PO BID 7 Days Qty: 14 0RF naltrexone 50 mg tablet 50 mg PO QDAY Qty: 90 3RF fluoxetine 40 mg capsule 40 mg PO QDAY Qty: 90 3RF clotrimazole-betamethasone 1-0.05 % cream 1 applic topical BID Qty: 45 2RF sildenafil (pulm.hypertension) 20 mg tablet See Rx Instructions PO QDAY PRN (Reason: sexual activity) Qty: 30 6RF Rx Instructions: 1-5 tablets, orally every day PRN; administer doses at least 4-6 hours apart gabapentin 300 mg capsule 900 - 1,200 mg PO TID Qty: 900 1RF Rx Instructions: 900mg (3 capsules) morning and midday. 1200mg (4 capsules) Follow Up/Referrals: Rodrigo Hughes MD [Primary Care Provider] - Stand Alone Forms: [employer] Info Instructions
[2024-04-11] MEDS: IBUPROFEN 200 MG TABLET 400 MG PO (16:01)
[2024-04-11] MEDS: dexAMETHasone 4 MG TABLET PO (18:52)
[2024-04-11] MEDS: levETIRAcetam 500 MG TABLET PO (18:53)
== END 2024-04-11 19:21 | disposition home or self-care (01) ==
PROVIDERS: Emergency Provider Emergency Medicine; PCP Family Medicine
DX: D49.6 Neoplasm of unspecified behavior of brain (principal)
CPT/HCPCS: 36415; 70450; 70553; 80048; 80076; 82077; 85025; 85610; 86140; 93005; 94761; 99284; 99285; A9270; A9575

== ENCOUNTER 2024-04-17 01:37 | Outpatient (CLI) | payer OTHER, SELFPAY ==
--- OUTSIDE RECORDS SUMMARY | 2024-05-06 22:42 | XMS_ITS | Clinical Summary ---
Author Organization [employer] [facility] Address [place], [place] [address] Care Team Providers Care Developmental Training Counselor Name Role Phone Rodrigo Hughes MD Primary Care Provider [phone] Trini Pearson RN Unavailable [phone] Shannon Ryder DO Unavailable [phone] Jacobo Flores CUSTOMER COUNTER ASSOCIATE Unavailable [phone] Allergies No known active allergies Medications Medication Sig Dispensed Refills Start Date End Date Status medication order composerIndicatio ns:Above knee amputation of right lower extremity (HC) Wheelchair Diagnosis: right below the knee amputation Lifetime. 1 unit 8 Active CPAPIndications:O SA on CPAP CPAP machine for home use at pressure: 13cn/H2O , Heated humidifier x 1, Humidifier chamber x 1, 1 unit 11 9 Active CPAPIndications:O SA on CPAP CPAP machine for home use [...] Frequency of use: Daily 1 Device 11 0 Active nicotine [address] 2 mg in mouth, between cheek & gum. Active oxyCODONE (ROXICODONE) 5 mg immediate release tablet Take 5 mg by mouth every 4 hours if needed. 1 Active losartan (COZAAR) 50 mg tablet Take 50 mg by mouth once daily. 4 Active FLUoxetine (PROzac) 20 mg capsule Take 40 mg by mouth once daily. Active gabapentin (NEURONTIN) 300 mg capsule Take 900 mg by mouth two times daily. Am and noon Active gabapentin (NEURONTIN) 300 mg capsule Take 1,200 mg by mouth at bedtime. Active loratadine-pseudo ephedrine (Claritin-D 24 Hour) 10-240 mg 24hr tablet Take 1 Tablet by mouth once daily. Active aluminum chloride (DRYSOL) 20 % external solutionIndicatio ns:Hyperhidrosis, AKA stump complication (HC),S/P AKA (above knee amputation) unilateral, right (HC) Apply topically to affected area(s) at bedtime. 35 mL 1 4 Active famotidine (PEPCID) 20 mg tabletIndications :Brain tumor (HC) Take 1 Tablet (20 mg) by mouth two times daily. 60 Tablet 4 Active nicotine 7 mg/24 hr (NICODERM; HABITROL) 7 mg/24 hr patchIndications: Nicotine abuse Apply 1 Patch on dry, clean, hairless skin once daily. 4 Active sodium chloride 1,000 mg soluble tabletIndications :Hyponatremia Take 1 Tablet (1,000 mg) by mouth or nasogastric tube two times daily. 30 Tablet 4 Active melatonin 3 mg tabletIndications :Insomnia, unspecified type Take 2 Tablets (6 mg) by mouth at bedtime. 30 Tablet 4 Active dexAMETHasone (DECADRON) 2 mg tabletIndications :Brain tumor (HC),Cerebral edema (HC) Take 1 Tablet (2 mg) by mouth two times daily with meals. 60 Tablet 4 Active loratadine-pseudo ephedrine (Claritin-D 24 Hour) 10-240 mg 24hr tablet Take 1 tablet by mouth once daily. 04/17/20 24 Discontinued(P harmacist change per medication history (E-cancel not sent)) traZODone (DESYREL) 100 mg tablet Take 100 mg by mouth at bedtime. Take 100mg by mouth at bedtime 3 7 04/17/20 24 Discontinued(P harmacist change per medication history (E-cancel not sent)) gabapentin (NEURONTIN) 300 mg capsuleIndication s:Neuropathic pain Take 900 mg by mouth 3 times daily. 150 capsule 8 04/17/20 24 Discontinued(P harmacist change per medication history (E-cancel not sent)) hydrOXYzine pamoate (VISTARIL) 25 mg capsuleIndication s:Adjustment disorder with anxiety Take 1 capsule by mouth 3 times daily if needed for Anxiety. 270 capsule 1 9 04/17/20 24 Discontinued(P harmacist change per medication history (E-cancel not sent)) FLUoxetine (PROZAC) 20 mg capsuleIndication s:Anxiety and depression TAKE 1 CAPSULE BY MOUTH EVERY DAY IN THE MORNING 30 capsule 1 9 04/17/20 24 Discontinued(P harmacist change per medication history (E-cancel not sent)) celecoxib (CELEBREX) 200 mg capsule 4 04/17/20 24 Discontinued(P harmacist change per medication history (E-cancel not sent)) dexAMETHasone (DECADRON) 4 mg tablet Take 4 mg by mouth. 4 04/17/20 24 Discontinued(P harmacist change per medication history (E-cancel not sent)) levETIRAcetam (KEPPRA) 500 mg tablet Take 500 mg by mouth two times daily. 4 05/01/20 24 Discontinued(* Med complete/Regim en complete/Level of care change) celecoxib (CeleBREX) 200 mg capsule Take 200 mg by mouth once daily. 04/29/20 24 Discontinued(* IP Discontinued) dexAMETHasone (DECADRON) 4 mg tablet Take 4 mg by mouth four times daily. 04/17/20 24 Discontinued(P harmacist change per medication history (E-cancel not sent)) dexAMETHasone (DECADRON) 4 mg tablet Take 6 mg by mouth four times daily. 04/29/20 24 Discontinued(* IP Discontinued) doxycycline 100 mg capsuleIndication s:skin and skin structure infection,mrsa infection Take 1 Capsule (100 mg) by mouth two times daily for 3 days. 6 Capsule 4 05/02/20 24 levoFLOXacin (LEVAQUIN) 750 mg tabletIndications :bacteremia Take 1 Tablet (750 mg) by mouth once daily for 5 days. 5 Tablet 4 05/05/20 24 Active Problems Problem Noted Date Diagnosed Date Vasogenic cerebral edema 05/01/2024 Hyponatremia 05/01/2024 Encounter for antineoplastic chemotherapy 2023 Gram-neg septicemia 04/25/2024 Bacterial infection due to Morganella morganii 0 04/25/2024 Mental status change resolved 04/25/2024 AKA stump complication 04/24/2024 Cellulitis of right leg 04/24/2024 Fever 04/24/2024 Altered mental status 04/24/2024 S/P craniotomy 04/24/2024 Glioblastoma 04/24/2024 Mass of temporal lobe 04/20/2024 Above knee amputation of right lower extremity [...] Encounters Date Type Department Care Team Description 05/03/2024 Telephone [facility] [address] [place] [address] Trini Pearson, sales account director Nurse Navigation 05/02/2024 Patient Outreach [facility] [address] [place] [address] Kerry Mathew, KM Brain Injury Rehab Care Coordination - [facility] 05/01/2024 2:24 PM CDT - 05/01/2024 11:59 PM CDT Hospital Encounter [facility] [address] [place] [address] Mary Cotton, BRAKE LINING FINISHER Therapeutic drug monitoring 05/01/2024 1:15 PM CDT Office Visit [facility] [address] [facility] [address] [place] [phone] Shannon Ryder DO Consult 05/01/2024 Orders Only [facility] [address] [facility] [address] [place] [phone] Shannon Ryder DO <No scans attached> 05/01/2024 Orders Only [facility] [address] [facility] [address] [place] [address] Mary Cotton, BRAKE LINING FINISHER <No scans attached> 05/01/2024 Travel 04/30/2024 Patient Outreach [facility] [address] [place], [place] [phone] Maude Jay, RN Primary RN Care Management; Hospital F/U (Mass of temporal lobe, 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, LACE+: 75) 04/19/2024 7:45 AM CDT Anesthesia Event [facility] [address] [place] [address] Chad Elder MD Putz, Joseph Janka, KUSH 04/19/2024 7:00 AM CDT - 04/19/2024 12:12 PM CDT Surgery [facility] [address] [place] [address] Gerardo Her MD RIGHT CRANIOTOMY FOR REMOVAL OF MASS 04/19/2024 Travel 04/17/2024 3:06 AM CDT - 04/29/2024 2:53 PM CDT Hospital Encounter [facility] [address] [place] [address] Johnson Echevarria MD [facility], [facility] Hospitalists [facility], MD Eduardo Shepherd Omer W, MBBS Stephenson, MD Carlos Cheung, MD Gorge Benton, MD Jana Davis Jae-Woo, MD Kethireddy, JOSÉ MIGUEL Webster Jimmy, MD Brain tumor (HC) (Primary Dx); Cerebral edema (HC); Altered mental status, unspecified altered mental status type; 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); Brain mass; CINDY 09/13/2006, AHI-18.5; Hyperhidrosis; AKA stump complication (HC); S/P AKA (above knee amputation) unilateral, right (HC); Glioblastoma (HC); Sepsis, due to unspecified organism, unspecified whether acute organ dysfunction present (HC); Hypertension; Nicotine abuse; Hyponatremia; Insomnia, unspecified type Discharge Disposition: Home Health 04/17/2024 Nurse Triage [facility] [address] [place], [place] [phone] Odette Bowman, Headache 04/16/2024 10:30 AM CDT Office Visit [facility] [address] [address] Pretty Thorne MD Consult 04/16/2024 Travel 03/28/2024 Transcribe [facility] [address] [facility] [address] [place] [address] Padmini Mirza NP from Last 3 Months [...] Friends and Fami ly Not on file 04/17/2024 Financial Resource Strain Answer Date R ecorded Difficulty of Paying Living Expenses Not on file 11/27/2021 Difficulty of Paying Living Expenses Not on file 11/27/2021 Sex and Gender Information Value Date Recorded Sex Assigned at Not on file Gender Identity Not on file Sexual Orientation Not on file Obstetrics History Last Filed Vital Signs Vital Sign Reading Time Taken Comments Blood Pressure 120/75 05/01/2024 11:50 AM CDT Pulse 78 05/01/2024 11:50 AM CDT Temperature 37 ??C (98.6 ??F) 05/01/2024 11:50 AM CDT Respiratory Rate 16 05/01/2024 11:50 AM CDT Oxygen Saturation 95% 05/01/2024 11:50 AM CDT Inhaled Oxygen Concentration - - Weight 111.1 kg (245 lb) 05/01/2024 11:50 AM CDT Height 180.3 cm (5' 11) 04/17/2024 3:11 AM CDT Body Mass Index 34.17 04/17/2024 3:11 AM CDT Plan of Treatment Upcoming Encounters Date Type Department Care Team (Late st Contact Info) Description 05/21/2024 11:15 AM CDT Office Visit [facility] [address] [phone] [place] [address] Pretty Thorne MD [address] [facility] [address] [place] [address] Health Maintenance Due Date Last Done Comments COVID-19 vaccine series (#1) 1979 Pneumococcal series for age 6-64 (1 of 2 - PCV) 1980 HIV for age 15-65 1989 Hepatitis C screening for ag e 18-79 1992 Zoster (shingles) series for age 50+ (1 of 2) 1993 BMI (ht and wt on same day) for age 18+ 01/12/2019 01/12/2018, 05/03/2016, 04/19/2016, Additional history exists Colonoscopy through age 75 2019 Lipids for age 45-75 2019 02/11/2014, 02/11/2014, 11/12/2013, Additional history exists Depression screening for age 12+ 08/13/2019 08/13/2018, 04/04/2018, 01/29/2018, Additional history exists Tetanus booster 05/21/2022 05/21/2012 (Comp leted outside of [facility]), 05/21/2012 Influenza for age 50-64 07/28/2024 11/28/2017 Tdap Completed 05/21/2012 Medical Devices Implanted Type Area Dust Box Worker Device Identifier Shelf Expiration Date Model / Serial / Lot Dura Neuro 3x3in Duragen Plusnon-Sut - [id number] Implanted:Qty: 1 on 04/19/2024 by Gerardo Her MD at [facility] Right: Cranium Appbyme Shiloh 01/24/2027 DP-1033 / / [id number] Screw Neuro 4mm Matrixneuro Slf Drill Titnm - [id number] Implanted:Qty: 12 on 04/19/2024 by Gerardo Her MD at [facility] Right: Cranium J And J Depuy CMF [id number] 4.01 / / [place] Cover Neuro 17mm Synthes Low Pro Titnm - [id number] Implanted:Qty: 3 on 04/19/2024 by Gerardo Her MD at [facility] Right: Cranium J And J Depuy CMF [id number] / / Procedures Procedure Name Priority Date/Time Associated Diagnosis Comments COMP METABOLIC PANEL Today 05/01/2024 2:39 PM CDT Therapeutic drug monitoring HBSAG (HBS) Today 05/01/2024 2:39 PM CDT Therapeutic drug monitoring ANTI HBC Today 05/01/2024 2:39 PM CDT Therapeutic drug monitoring SODIUM Early AM 04/29/2024 7:57 AM CDT SODIUM Early AM 04/28/2024 10:43 AM CDT PLATELET COUNT Timed 04/28/2024 10:43 AM CDT SODIUM Today 04/27/2024 7:13 PM CDT SODIUM Timed 04/27/2024 10:25 AM CDT SODIUM Timed 04/26/2024 11:14 PM CDT SODIUM Timed 04/26/2024 6:39 PM CDT SODIUM Timed 04/26/2024 10:29 AM CDT SODIUM Timed 04/26/2024 4:35 AM CDT SODIUM Timed 04/25/2024 11:03 PM CDT HEPATIC FUNCTION PANEL Today 04/25/2024 3:51 PM CDT SODIUM Timed 04/25/2024 3:51 PM CDT XR VIDEO SWALLOW W SPEECH Routine 04/25/2024 1:54 PM CDT CREATININE Add On 04/25/2024 12:37 PM CDT POTASSIUM Add On 04/25/2024 12:37 PM CDT SODIUM Timed 04/25/2024 12:37 PM CDT CBC WITH AUTO DIFFERENTIAL Early AM 04/25/2024 5:29 AM CDT MAGNESIUM Early AM 04/25/2024 5:29 AM CDT BASIC METABOLIC PANEL Early AM 04/25/2024 5:29 AM CDT CBC WITH AUTO DIFFERENTIAL Early AM 04/25/2024 5:29 AM CDT SODIUM Timed 04/25/2024 5:29 AM CDT URINE CULTURE ARSALAN 04/25/2024 1:54 AM CDT URINALYSIS MICROSCOPIC Timed 04/25/2024 1:54 AM CDT UA W/ SEDIMENT EXAM REFLEXED PER CRITERIA Today 04/25/2024 1:54 AM CDT SODIUM Timed 04/24/2024 11:56 PM CDT SODIUM STAT 04/24/2024 4:25 PM CDT VANCOMYCIN Timed 04/24/2024 3:01 PM CDT XR CHEST 1 VIEW PORTABLE Routine 04/24/2024 2:10 PM CDT EKG 12 LEAD STAT 04/24/2024 12:47 PM CDT ARTERIAL BLOOD GAS STAT 04/24/2024 11:55 AM CDT LACTATE VENOUS STAT 04/24/2024 11:47 AM CDT LACTATE VENOUS Today 04/24/2024 11:47 AM CDT LACTATE VENOUS STAT 04/24/2024 10:22 AM CDT LACTATE VENOUS STAT 04/24/2024 10:22 AM CDT BLOOD CULTURE Today 04/24/2024 10:22 AM CDT BLOOD CULTURE Today 04/24/2024 10:22 AM CDT CBC W PLT NO DIFF Early AM 04/24/2024 7:4 4 AM CDT CREATININE Early AM 04/24/2024 5:47 AM CDT POTASSIUM Early AM 04/24/2024 5:47 AM CDT SODIUM Early AM 04/24/2024 5:[address] HEAD BRAIN WO STAT 04/24/2024 3:09 AM CDT BLOOD CULTURE STAT 04/24/2024 1:05 AM CDT BLOOD CULTURE MULTIPLEX PCR STAT 04/24/2024 1:00 AM CDT CBC WITH AUTO DIFFERENTIAL Today 04/24/2024 1:00 AM CDT CBC WITH AUTO DIFFERENTIAL Today 04/24/2024 1:00 AM CDT BLOOD CULTURE STAT 04/24/2024 1:00 AM CDT SODIUM Timed 04/23/2024 7:08 AM CDT CREATININE Early AM 04/23/2024 7:08 AM CDT POTASSIUM Early AM 04/23/2024 7:08 AM CDT CBC W PLT NO DIFF Early AM 04/23/2024 7:0 8 AM CDT SODIUM Timed 04/23/2024 1:58 AM CDT SODIUM Timed 04/22/2024 7:06 PM CDT SODIUM Timed 04/22/2024 3:08 PM CDT SODIUM Timed 04/22/2024 10:43 AM CDT SODIUM STAT 04/22/2024 7:58 AM CDT CREATININE Early AM 04/22/2024 7:58 AM CDT POTASSIUM Early AM 04/22/2024 7:58 AM CDT CBC W PLT NO DIFF Early AM 04/22/2024 7:5 8 AM CDT SODIUM Today 04/21/2024 9:28 PM CDT GLUCOSE METER Timed 04/21/2024 12:39 PM CDT GLUCOSE METER Timed 04/21/2024 8:37 AM CDT SODIUM Timed 04/21/2024 7:51 AM CDT SODIUM Timed 04/21/2024 3:06 AM CDT GLUCOSE METER Timed 04/20/2024 10:04 PM CDT SODIUM Timed 04/20/2024 9:53 PM CDT SODIUM Timed 04/20/2024 12:06 PM CDT SCAN-CARDIAC STRIP 04/20/2024 9: 59 AM CDT GLUCOSE METER Timed 04/20/2024 7:54 AM CDT PHOSPHORUS Early AM 04/20/2024 5:15 AM CDT MAGNESIUM Early AM 04/20/2024 5:15 AM CDT BASIC METABOLIC PANEL Early AM 04/20/2024 5:15 AM CDT CBC W PLT NO DIFF Early AM 04/20/2024 5:1 5 AM CDT SODIUM Timed 04/20/2024 5:[address] HEAD BRAIN WO Routine 04/20/2024 4:06 AM CDT GLUCOSE METER Timed 04/20/2024 1:30 AM CDT SODIUM Timed 04/20/2024 12:23 AM CDT SODIUM Timed 04/19/2024 7:40 PM CDT GLUCOSE METER Timed 04/19/2024 4:42 PM CDT EXTRA TUBE LIGHT GREEN Today 04/19/2024 11:53 AM CDT SODIUM STAT 04/19/2024 11:53 AM CDT MR HEAD BRAIN INTRAOPERATIVE WWO Routine 04/19/2024 11:32 AM CDT Brain mass ARTERIAL LINE Routine 04/19/2024 10:04 AM CDT ARTERIAL LINE Routine 04/19/2024 10:04 AM CDT ARTERIAL LINE Routine 04/19/2024 10:04 AM CDT ARTERIAL LINE Routine 04/19/2024 10:04 AM CDT ARTERIAL LINE Routine 04/19/2024 10:04 AM CDT MGMT AP SEND-OUT Timed 04/19/2024 9:59 AM CDT FOCUS Routine 04/19/2024 9:39 AM CDT ENDOTRACHEAL TUBE Routine 04/19/2024 8:5 1 AM CDT ENDOTRACHEAL TUBE Routine 04/19/2024 8:5 1 AM CDT ENDOTRACHEAL TUBE Routine 04/19/2024 8:5 1 AM CDT MR HEAD BRAIN W Routine 04/19/2024 8:41 AM CDT CRANIOTOMY INTRAOPERATIVE MRI Class E Urgent 04/19/2024 7:06 AM CDT RIGHT BRAIN MASS Case Notes Stealth, scopeNeeds prescan in OR 6 for Stealth Special Needs Wt 240 SODIUM Timed 04/19/2024 5:49 AM CDT GLUCOSE METER Timed 04/19/2024 1:55 AM CDT SODIUM Timed 04/19/2024 12:03 AM CDT GLUCOSE METER Timed 04/18/2024 8:14 PM CDT SCAN-CARDIAC STRIP 04/18/2024 8: 00 PM CDT SODIUM Timed 04/18/2024 6:33 PM CDT GLUCOSE METER Timed 04/18/2024 6:15 PM CDT GLUCOSE METER Timed 04/18/2024 1:55 PM CDT SODIUM Timed 04/18/2024 11:52 AM CDT SODIUM Timed 04/18/2024 6:20 AM CDT HEPATIC FUNCTION PANEL Early AM 04/18/2024 6:20 AM CDT BASIC METABOLIC PANEL Early AM 04/18/2024 6:20 AM CDT CBC W PLT NO DIFF Early AM 04/18/2024 6:2 0 AM CDT GLUCOSE METER Timed 04/18/2024 6:15 AM CDT XR CHEST 1 VIEW PORTABLE Routine 04/18/2024 5:13 AM CDT SODIUM Timed 04/18/2024 12:16 AM CDT GLUCOSE METER Timed 04/17/2024 10:01 PM CDT LACTATE VENOUS Timed 04/17/2024 9:01 PM CDT GLUCOSE METER Timed 04/17/2024 5:32 PM CDT LACTATE VENOUS Today 04/17/2024 5:32 PM CDT SODIUM Timed 04/17/2024 5:[address] HEAD BRAIN WO STAT 04/17/2024 5:07 AM CDT MAGNESIUM ARSALAN 04/17/2024 3:31 AM CDT CK TOTAL ARSALAN 04/17/2024 3:31 AM CDT HEPATIC FUNCTION PANEL ARSALAN 04/17/2024 3:31 AM CDT CBC WITH AUTO DIFFERENTIAL STAT 04/17/2024 3:31 AM CDT BASIC METABOLIC PANEL STAT 04/17/2024 3:31 AM CDT CBC WITH AUTO DIFFERENTIAL STAT 04/17/2024 3:31 AM CDT EKG 12 LEAD STAT 04/17/2024 3:14 AM CDT SCAN-CARDIAC STRIP 04/17/2024 12:00 AM CDT LIPID PANEL W REFLEX MEASURED LDL Routine 02/11/2014 8:12 AM CDT Hypertriglycerid emia from Last 3 Months or Most Recently Relevant to Health Maintenance Results * HBSAG (HBS) (05/01/2024 2:39 PM CDT) HBSAG Nonreactive Nonreactive 05/01/2024 3:35 PM CDT [facility] Blood BLOOD SPECIMEN / Unknown Venipuncture / Unknown 05/01/2024 2:39 PM CDT 05/01/2024 2:46 PM CDT Mary Trini Lula BRAKE LINING FINISHER SEND OUTS Performing Organization Address [facility] Co de Phone Number [facility] [address] [place] [address], * ANTI HBC (05/01/2024 2:39 PM CDT) ANTI HBC Non-React michael Non-React michael 05/01/2024 3:35 PM CDT [facility] Comment:Anti-HBc Antibodies not detected. Does not exclude the possibility of exposure to or infection with HBV. Levels of Anti-HBc may be below the cut-off in early infection. Blood BLOOD SPECIMEN / Unknown Venipuncture / Unknown 05/01/2024 2:39 PM CDT 05/01/2024 2:46 PM CDT Mary Cotton BRAKE LINING FINISHER SEND OUTS Performing Organization Address [facility] Co de Phone Number [facility] [address] [place] [address], * (ABNORMAL) COMP METABOLIC PANEL (05/01/2024 2:39 PM CDT) SODIUM 138 136 - 145 mmol/L 05/01/2024 4:01 PM CDT [facility] POTASSIUM 5.2(H) 3.5 - 5.1 mmol/L 05/01/2024 4:01 PM CDT [facility] CHLORIDE 103 98 - 107 mmol/L 05/01/2024 4:01 PM CDT [facility] CO2,TOTAL 23 22 - 29 mmol/L 05/01/2024 4:01 PM CDT [facility] ANION GAP 12 5 - 18 05/01/2024 4:01 PM CDT [facility] GLUCOSE 114(H) 70 - 99 mg/dL 05/01/2024 4:01 PM CDT [facility] CALCIUM 9.4 8.6 - 10.0 mg/dL 05/01/2024 4:01 PM CDT [facility] BUN 21(H) 6 - 20 mg/dL 05/01/2024 4:01 PM T [facility] CREATININE 0.95 0.70 - 1.20 mg/dL 05/01/2024 4:01 PM T [facility] BUN/CREAT RATIO 22(H) 10 - 20 4:01 PM T [facility] eGFR >90 >90 mL/min/1.7 3m2 05/01/2024 4:01 PM T [facility] Comment:As of 2022, eG FR is calculated by the CKD-EPI creatinine equation without race adjustment. ??eGFR can be influenced by muscle mass, exercise, and diet. ??The reported eGFR is an estimation only and is only applicable if the renal function is stable. ALBUMIN 3.8(L) 4.0 - 4.9 g/dL 05/01/2024 4:01 PM T [facility] PROTEIN,TOTAL 6.2 6.0 - 8.0 g/dL 05/01/2024 4:01 PM T [facility] BILIRUBIN,TOTAL 0.4 0.0 - 1.2 mg/dL 05/01/2024 4:01 PM T [facility] ALK PHOSPHATASE 75 40 - 129 IU/L 05/01/2024 4:01 PM T [facility] ALT (SGPT) 102(H) 10 - 50 IU/L 05/01/2024 4:01 PM T [facility] AST (SGOT) 29 10 - 50 IU/L 05/01/2024 4:01 PM T [facility] Blood BLOOD SPECIMEN / Unknown Venipuncture / Unknown 05/01/2024 2:39 PM CDT 05/01/2024 2:46 PM CDT Mary Cotton BRAKE LINING FINISHER CHEMISTRY [facility] [address] [place] [address], [place] * Sodium AM (04/29/2024 7:57 AM CDT) Only the most recent of37 resultswithin the time period is included. SODIUM 139 136 - 145 mmol/L 04/29/2024 8:53 AM CDT [facility] Blood BLOOD SPECIMEN / Unknown Venipuncture / Unknown 04/29/2024 7:57 AM CDT 04/29/2024 8:31 AM CDT Ronny Mendez MD CHEMISTRY Performing Organization Address [facility] Co de Phone Number [facility] [address] [place] [address], [place] * PLATELET COUNT (04/28/2024 10:43 AM CDT) Pathologist [facility] PLATELET COUNT 214 140 - 440 thou/cu mm 04/28/2024 11:17 AM CDT [facility] MPV 8.8 6.5 - 11.0 fL 04/28/2024 11:17 AM CDT [facility] Blood BLOOD SPECIMEN / Unknown Butterfly / Unknown 04/28/2024 10:43 AM CDT 04/28/2024 11:08 AM CDT Narrative [facility] - 04/28/2024 11:17 AM CDT With am labs while on heparin or ??LMWH per hospital policy Bia Bates MD HEMATOLOGY Performing Organization Address [facility] Co de Phone Number [facility] [address] [place] [address], [place] * (ABNORMAL) HEPATIC FUNCTION PANEL (04/25/2024 3:51 PM CDT) Only the most recent of3 resultswithin the time period is included. ALBUMIN 3.0(L) 4.0 - 4.9 g/dL 04/25/2024 5:09 PM CDT [facility] PROTEIN,TOTAL 5.4(L) 6.0 - 8.0 g/dL 04/25/2024 5:09 PM CDT [facility] BILIRUBIN,TOTAL 0.2 0.0 - 1.2 mg/dL 04/25/2024 5:09 PM CDT [facility] BILIRUBIN,DIRECT <0.2 0.0 - 0.3 mg/dL 04/25/2024 5:09 PM CDT [facility] BILIRUBIN,INDIRE CT 04/25/2024 5:09 PM CDT [facility] Comment:Unable to calculate, Direct Bili <0.2 ALK PHOSPHATASE 82 40 - 129 IU/L 04/25/2024 5:09 PM CDT [facility] ALT (SGPT) 51(H) 10 - 50 IU/L 04/25/2024 5:09 PM CDT [facility] AST (SGOT) 42 10 - 50 IU/L 04/25/2024 5:09 PM CDT [facility] Blood BLOOD SPECIMEN / Unknown Venipuncture / Unknown 04/25/2024 3:51 PM CDT 04/25/2024 4:19 PM CDT Melinda Cha MD CHEMISTRY [facility] [address] [place] [address], * XR VIDEO SWALLOW AND TREATMENT W SPEECH (04/25/2024 1:54 PM CDT) Anatomical Region Laterality Modality Esophagus Digital Radiogra phy Narrative 04/25/2024 2:46 PM CDT EXAM: XR VIDEO SWALLOW W SPEECH DATE OF EXAM: 04/25/2024 Patient: Eleuterio Tafoya (1975), CLINICAL HISTORY: Assess swallow for aspiration. TECHNIQUE: Fluoroscopy was provided for speech pathologist during video swallow study. FINDINGS: Patient was given barium of varying consistencies to ingest. There was flash laryngeal penetration but no aspiration during ingestion of thin barium liquids. There was no laryngeal penetration or aspiration during ingestion of nectar thick barium, honey thick barium, pudding thick barium, and barium coated cracker. The patient then ingested a barium tablet with no penetration or aspiration. Please see the report by the speech pathologist for further details and recommendations. FLUOROSCOPY TIME: 1 minute and 18 seconds [employer] [facility] Radiology Dept. Yazmin Lofton [employer] EXAMINER FLUOROSCOPY * Potassium FOR ADD ON (04/25/2024 12:37 PM CDT) Only the most recent of4 resultswithin the time period is included. POTASSIUM 4.2 3.5 - 5.1 mmol/L 04/25/2024 1:17 PM CDT [facility] [email or web address] [facility] Blood BLOOD SPECIMEN / Unknown Butterfly / Unknown 04/25/2024 12:37 PM CDT 04/25/2024 12:44 PM CDT Leonardo VALDEZ CHEMISTRY [facility] [email or web address] [facility] [address] [place] [id number], * (ABNORMAL) Creatinine FOR ADD ON (04/25/2024 12:37 PM CDT) Only the most recent of4 resultswithin the time period is included. eGFR >90 >90 mL/min/1.7 3m2 04/25/2024 1:17 PM CDT [facility] [email or web address] [facility] Comment:As of 2022, eG FR is calculated by the CKD-EPI creatinine equation without race adjustment. ??eGFR can be influenced by muscle mass, exercise, and diet. ??The reported eGFR is an estimation only and is only applicable if the renal function is stable. CREATININE 0.57(L) 0.70 - 1.20 mg/dL 04/25/2024 1:17 PM CDT [facility] [email or web address] [facility] Blood BLOOD SPECIMEN / Unknown Butterfly / Unknown 04/25/2024 12:37 PM CDT 04/25/2024 12:44 PM CDT Leonardo VALDEZ CHEMISTRY [facility] [address] [place] [address], [place] * (ABNORMAL) CBC WITH AUTO DIFFERENTIAL (04/25/2024 5:29 AM CDT) Only the most recent of3 resultswithin the time period is included. WHITE BLOOD COUNT 5.7 4.5 - 11.0 thou/cu mm 04/25/2024 6:15 AM CDT [facility] RED BLOOD COUNT 3.24(L) 4.30 - 5.90 mil/cu mm 04/25/2024 6:15 AM CDT [facility] HEMOGLOBIN 10.6(L) 13.5 - 17.5 g/dL 04/25/2024 6:15 AM CDT [facility] HEMATOCRIT 31.7(L) 37.0 - 53.0 % 04/25/2024 6:15 AM CDT [facility] MCV 98 80 - 100 fL 04/25/2024 6:15 AM CDT [facility] MCH 32.7 26.0 - 34.0 pg 04/25/2024 6:15 AM CDT [facility] MCHC 33.4 32.0 - 36.0 g/dL 04/25/2024 6:15 AM CDT [facility] RDW 12.2 11.5 - 15.5 % 04/25/2024 6:15 AM CDT [facility] PLATELET COUNT 117(L) 140 - 440 thou/cu mm 04/25/2024 6:15 AM CDT [facility] MPV 8.8 6.5 - 11.0 fL 04/25/2024 6:15 AM CDT [facility] NRBC 0.0 % 04/25/2024 6:15 AM CDT [facility] ABS NRBC 0.0 thou /cu mm 04/25/2024 6:15 AM CDT [facility] % NEUT 87.4 % 04/25/2024 6:15 AM CDT [facility] % LYMPH 6.0 % 04/25/2024 6:15 AM CDT [facility] % MONO 5.4 % 04/25/2024 6:15 AM CDT [facility] % EOS 0.0 % 04/25/2024 6:15 AM CDT [facility] % BASO 0.0 % 04/25/2024 6:15 AM CDT [facility] % IMMATURE GRAN (METAS,MYELOS,OK OS) 1.2 % 04/25/2024 6:15 AM CDT [facility] ABSOLUTE NEUTROPHILS 5.0 1.7 - 7.0 thou/cu mm 04/25/2024 6:15 AM CDT [facility] ABSOLUTE LYMPHOCYTES 0.3(L) 0.9 - 2.9 thou/cu mm 04/25/2024 6:15 AM CDT [facility] ABSOLUTE MONOCYTES 0.3 <0.9 thou/cu mm 04/25/2024 6:15 AM CDT [facility] ABSOLUTE EOSINOPHILS 0.0 <0.5 thou/cu mm 04/25/2024 6:15 AM CDT [facility] ABSOLUTE BASOPHILS 0.0 <0.3 thou/cu mm 04/25/2024 6:15 AM CDT [facility] ABSOLUTE IMMATURE GRANULOCYTES(MET ,MYELOS,PROS) 0.1 <0.3 thou/cu mm 04/25/2024 6:15 AM CDT [facility] Blood BLOOD SPECIMEN / Unknown Venipuncture / Unknown 04/25/2024 5:29 AM CDT 04/25/2024 5:49 AM CDT Leonardo Fox [facility] HEMATOLOGY [facility] [address] [place] [address], [place] * Magnesium AM (04/25/2024 5:29 AM CDT) Only the most recent of3 resultswithin the time period is included. MAGNESIUM 1.9 1.6 - 2.6 mg/dL 04/25/2024 6:48 AM CDT [facility] Blood BLOOD SPECIMEN / Unknown Venipuncture / Unknown 04/25/2024 5:29 AM CDT 04/25/2024 5:50 AM CDT Leonardo Fox [facility] CHEMISTRY [facility] [address] [place] [address], * (ABNORMAL) BASIC METABOLIC PANEL (04/25/2024 5:29 AM CDT) Only the most recent of4 resultswithin the time period is included. SODIUM 134(L) 136 - 145 mmol/L 04/25/2024 6:38 AM CDT [facility] POTASSIUM 3.8 3.5 - 5.1 mmol/L 04/25/2024 6:38 AM T [facility] CHLORIDE 102 98 - 107 mmol/L 04/25/2024 6:38 AM CDT [facility] CO2,TOTAL 23 22 - 29 mmol/L 04/25/2024 6:38 AM T [facility] ANION GAP 9 5 - 18 04/25/2024 6:38 AM T [facility] GLUCOSE 112(H) 70 - 99 mg/dL 04/25/2024 6:38 AM T [facility] CALCIUM 8.0(L) 8.6 - 10.0 mg/dL 04/25/2024 6:38 AM T [facility] BUN 20 6 - 20 mg/dL 04/25/2024 6:38 AM T [facility] CREATININE 0.57(L) 0.70 - 1.20 mg/dL 04/25/2024 6:38 AM CDT [facility] BUN/CREAT RATIO 35(H) 10 - 20 6:38 AM CDT [facility] eGFR >90 >90 mL/min/1.7 3m2 04/25/2024 6:38 AM CDT [facility] Comment:As of 2022, eG FR is calculated by the CKD-EPI creatinine equation without race adjustment. ??eGFR can be influenced by muscle mass, exercise, and diet. ??The reported eGFR is an estimation only and is only applicable if the renal function is stable. Blood BLOOD SPECIMEN / Unknown Venipuncture / Unknown 04/25/2024 5:29 AM CDT 04/25/2024 5:50 AM CDT Leonardo Fox [facility] CHEMISTRY [facility] [address] [place] [address], * (ABNORMAL) URINALYSIS MICROSCOPIC (04/25/2024 1:54 AM CDT) RBC 11-25(A) 0-2, None Seen /HPF 04/25/2024 2:30 AM CDT [facility] WBC 3-5 0-2, 3-5, None Seen /HPF 04/25/2024 2:30 AM CDT [facility] BACTERIA None Seen None Seen, Rare, Few Bacteria/ HPF 04/25/2024 2:30 AM CDT [facility] EPITHELIAL CELLS None Seen None Seen, Few Epi/HPF 04/25/2024 2:30 AM CDT [facility] HYALINE CASTS 0-2 0-2, 3-5 /LPF 04/25/2024 2:30 AM CDT [facility] Urine URINE SPECIMEN / Unknown Non-Blood / Unknown 04/25/2024 1:54 AM CDT 04/25/2024 2:08 AM CDT Melinda Cha MD URINE Performing Organization Address City/[facility]/ZIP Co de Phone Number [facility] [address] [place] [phone], [place] * URINE CULTURE (04/25/2024 1:54 AM CDT) CULTURE No growth (<1,000 CFU/mL) 04/26/2024 8:42 AM CDT [facility] Urine URINE SPECIMEN / Unknown Non-Blood / Unknown 04/25/2024 1:54 AM CDT 04/25/2024 2:08 AM CDT Sanford Nelson MD MICROBIOLOGY Performing Organization Address [facility] Co de Phone Number [facility] [address] [place] [address], [place] * (ABNORMAL) Urinalysis TODAY (04/25/2024 1:54 AM CDT) COLOR Yellow Yellow Color 04/25/2024 2:30 AM CDT [facility] CLARITY Clear Clear Clarity 04/25/2024 2:30 AM CDT [facility] SPECIFIC GRAVITY,URINE 1.015 1.010, 1.015, 1.020, 1.025 04/25/2024 2:30 AM CDT [facility] PH,URINE 6.0 6.0, 7.0, 8.0, 5.5, 6.5, 7.5, 8.5 04/25/2024 2:30 AM CDT [facility] UROBILINOGEN, QUALITATIVE Normal Normal EU/dl 04/25/2024 2:30 AM CDT [facility] PROTEIN, URINE Negative Negative mg/dL 04/25/2024 2:30 AM CDT [facility] GLUCOSE, URINE Negative Negative mg/dL 04/25/2024 2:30 AM CDT [facility] KETONES,URINE Negative Negative mg/dL 04/25/2024 2:30 AM CDT [facility] BILIRUBIN,URI NE Negative Negative 04/25/2024 2:30 AM CDT [facility] OCCULT BLOOD,URINE Moderate(A) Negative 04/25/2024 2:30 AM CDT [facility] NITRITE Negative Negative 04/25/2024 2:30 AM CDT [facility] LEUKOCYTE ESTERASE Small(A) Negative 04/25/2024 2:30 AM CDT [facility] Urine URINE SPECIMEN / Unknown Non-Blood / Unknown 04/25/2024 1:54 AM CDT 04/25/2024 2:08 AM CDT Melinda Cha MD URINE Performing Organization Address City/[facility]/ZIP Co de Phone Number [facility] [address] [address], [place] * VANCOMYCIN (04/24/2024 3:01 PM CDT) Pathologist [facility] VANCOMYCIN 5.5 ug/mL 04/24/2024 3:43 PM CDT [facility] Comment:No Reference Range D efined. DATE OF LAST DOSE,RANDOM 04/24/2024 04/24/2024 3:43 PM CDT [facility] TIME OF LAST DOSE,RANDOM 3:31 AM 04/24/2024 3:43 PM CDT [facility] Blood BLOOD SPECIMEN / Unknown Venipuncture / Unknown 04/24/2024 3:01 PM CDT 04/24/2024 3:06 PM CDT Dominick Sales MD CHEMISTRY Performing Organization Address City/[facility]/ZIP Co de Phone Number [facility] [address] [address], [place] * XR CHEST 1 VIEW PORTABLE (04/24/2024 2:10 PM CDT) Only the most recent of2 resultswithin the time period is included. Anatomical Region Laterality Modality HEART, THORAX, CHEST Digital Rad iography 04/24/2024 3:06 PM CDT Impressions 04/24/2024 3:06 PM CDT 1. ??No focal lung infiltrate. Dictated by Uday Keane MD @ Apr 24 2024 ??3:06PM (Electronically Signed) [email or web address] Narrative 04/24/2024 3:06 PM CDT For Patients: ??As a result of the Cures Act, medical imaging exams and procedure reports are released immediately into your electronic medical record. ??You may view this report before your referring provider. ??If you have questions, please contact your health care provider. HISTORY: Evaluate lung infiltrate. TECHNIQUE: One view of the chest. COMPARISON: 04/18/2024. FINDINGS: Cardiac size within normal limits. No pulmonary vascular congestion. There is no focal lung infiltrate or pulmonary edema. No pneumothorax or pleural effusion. Procedure Note Uday Keane MD - 04/24/2024 For Patients: As a result of the Cures Act, medical imagingexams and procedure reports are released immediately into your electronicmedical record. You may view this report before your referring provider.If you have questions, please contact your health care provider. HISTORY: Evaluate lung infiltrate. TECHNIQUE: One view of the chest. COMPARISON: 04/18/2024. FINDINGS: Cardiac size within normal limits. No pulmonary vascular congestion. Thereis no focal lung infiltrate or pulmonary edema. No pneumothorax or pleuraleffusion. IMPRESSION: 1. No focal lung infiltrate. Dictated by Uday Keane MD @ Apr 24 2024 3:06PM (Electronically Signed) [email or web address] Melinda Cha MD GENERAL IMAGING * 12 Lead EKG - [employer] (04/24/2024 12:47 PM CDT) Only the most recent of2 resultswithin the time period is included. Interpretation Normal sinus rhythm Normal ECG When compared with ECG of 17-APR-2024 03:14, No significant change was found BEYOND NOW Ventricular Rate 71 BPM BEYOND NOW Atrial Rate 71 BPM BEYOND NOW P-R Interval 166 ms BEYOND NOW QRS Duration 104 ms BEYOND NOW QT 384 ms BEYOND NOW QTc 417 ms BEYOND NOW P [place] 38 degrees BEYOND NOW R [place] 1 degrees BEYOND NOW T [place] 4 degrees BEYOND NOW 04/24/2024 12:4 7 PM CDT 04/24/2024 6:09 PM CDT Rodrigo Caldwell RN EKG ORD Performing Organization Address [facility] Co de Phone Number BEYOND NOW [place], [place] * (ABNORMAL) ARTERIAL BLOOD GAS (04/24/2024 11:55 AM CDT) PH, ARTERIAL 7.47(H) 7.35 - 7.45 04/24/2024 12:13 PM CDT [facility] PCO2, ARTERIAL 34(L) 35 - 48 mmHg 04/24/2024 12:13 PM CDT [facility] PO2, ARTERIAL 94 83 - 108 mmHg 04/24/2024 12:13 PM CDT [facility] HCO3, ARTERIAL 25 21 - 28 mmol/L 04/24/2024 12:13 PM CDT [facility] BASE EXCESS, ARTERIAL 1.5 -2.0 - 3.0 04/24/2024 12:13 PM CDT [facility] O2 SATURATION, ARTERIAL 100(H) 94 - 98 % 04/24/2024 12:13 PM CDT [facility] INSPIRED O2 30 04/24/2024 12:13 PM CDT [facility] Comment:Unit of Measure: Lit ers (L) if <=20; Percent (%) if >20 PATIENT TEMPERATURE 37.0 Degrees C 04/24/2024 12:13 PM CDT [facility] Blood ARTERIAL BLOOD SPECIMEN / Unknown Non-Lab Venipuncture / Unknown 04/24/2024 11:55 AM CDT 04/24/2024 12:08 PM CDT Leonardo VALDEZ CHEMISTRY Performing Organization Address [facility]/ZIP Co de Phone Number [facility] [address] [place] [address], [place] * Lactate STAT (venous) (04/24/2024 11:47 AM CDT) Only the most recent of6 resultswithin the time period is included. [facility] LACTATE,VENOUS 0.7 0.5 - 2.0 mmol/L 04/24/2024 12:33 PM CDT [facility] Blood BLOOD SPECIMEN / Unknown Venipuncture / Unknown 04/24/2024 11:47 AM CDT 04/24/2024 12:00 PM CDT Leonardo VALDEZ CHEMISTRY Performing Organization Address [facility]/ZIP Co de Phone Number [facility] [address] [place] [address], * BLOOD CULTURE (04/24/2024 10:22 AM CDT) Only the most recent of4 resultswithin the time period is included. [facility] CULTURE No Growth. 04/29/2024 12:36 PM CDT [facility] Blood BLOOD SPECIMEN / Unknown Venipuncture / Unknown 04/24/2024 10:22 AM CDT 04/24/2024 10:36 AM CDT Bia Bates MD MICROBIOLOGY Performing Organization Address [facility]/ZIP Co de Phone Number [facility] [address] [place] [address], * (ABNORMAL) CBC (04/24/2024 7:44 AM CDT) Only the most recent of5 resultswithin the time period is included. [facility] WHITE BLOOD COUNT 13.0(H) 4.5 - 11.0 thou/cu mm 04/24/2024 7:58 AM CDT [facility] RED BLOOD COUNT 4.01(L) 4.30 - 5.90 mil/cu mm 04/24/2024 7:58 AM CDT [facility] HEMOGLOBIN 13.6 13.5 - 17.5 g/dL 04/24/2024 7:58 AM CDT [facility] HEMATOCRIT 38.0 37.0 - 53.0 % 04/24/2024 7:58 AM CDT [facility] MCV 95 80 - 100 fL 04/24/2024 7:58 AM CDT [facility] MCH 33.9 26.0 - 34.0 pg 04/24/2024 7:58 AM CDT [facility] MCHC 35.8 32.0 - 36.0 g/dL 04/24/2024 7:58 AM CDT [facility] RDW 12.1 11.5 - 15.5 % 04/24/2024 7:58 AM CDT [facility] PLATELET COUNT 160 140 - 440 thou/cu mm 04/24/2024 7:58 AM CDT [facility] MPV 8.7 6.5 - 11.0 fL 04/24/2024 7:58 AM CDT [facility] NRBC 0.2 % 04/24/2024 7:58 AM CDT [facility] ABS NRBC 0.0 thou /cu mm 04/24/2024 7:58 AM CDT [facility] Blood BLOOD SPECIMEN / Unknown Capillary / Unknown 04/24/2024 7:44 AM CDT 04/24/2024 7:51 AM CDT Bia Bates MD HEMATOLOGY [facility] [address] [place] [id number], * CT head without IV contrast STAT (04/24/2024 3:09 AM CDT) Only the most recent of3 resultswithin the time period is included. Anatomical Region Laterality Modality HEAD, BRAIN Computed Tomogra phy 04/24/2024 3:28 AM CDT Impressions 04/24/2024 3:28 AM CDT 1. Evolving postsurgical changes as above, with decreased edema and associated decreased mass effect. 2. No new acute intracranial hemorrhage. Please note that all CT scans at this facility use dose modulation, iterative reconstruction, and/or weight-based dosing when appropriate to reduce radiation dose to as low as reasonably achievable. Dictated by Ronny Ingram MD @ 04/24/2024 3:28:47 AM (Electronically Signed) Narrative 04/24/2024 3:28 AM CDT For Patients: ??As a result of the Cures Act, medical imaging exams and procedure reports are released immediately into your electronic medical record. ??You may view this report before your referring provider. ??If you have questions, please contact your health care provider. INDICATION: Fever. TECHNIQUE: CT head without contrast. COMPARISON: 04/20/2024. FINDINGS: Evolving postsurgical changes of right pterional craniotomy with underlying resection cavity in the right lateral temporal lobe. Decreased low attenuation vasogenic edema with decreased mass effect including improved caliber of the right lateral ventricle and decreased leftward midline shift of the septum pellucidum. Near-complete resolution of pneumocephalus. Residual blood products in the surgical bed. Unchanged small extra-axial postoperative collection underlying the craniotomy. Calles-white matter differentiation is maintained elsewhere. No new intracranial hemorrhage. No hydrocephalus. Basilar cisterns are patent. The visualized paranasal sinuses and mastoid air cells demonstrate no acute or significant findings. The visualized orbits are grossly unremarkable. Decreased right scalp soft tissue swelling. Procedure Note Ronny Ingram MD - 04/24/2024 For Patients: As a result of the Cures Act, medical imagingexams and procedure reports are released immediately into your electronicmedical record. You may view this report before your referring provider.If you have questions, please contact your health care provider. INDICATION: Fever. TECHNIQUE: CT head without contrast. COMPARISON: 04/20/2024. FINDINGS: Evolving postsurgical changes of right pterional craniotomy withunderlying resection cavity in the right lateral temporal lobe. Decreasedlow attenuation vasogenic edema with decreased mass effect includingimproved caliber of the right lateral ventricle and decreased leftwardmidline shift of the septum pellucidum. Near-complete resolution ofpneumocephalus. Residual blood products in the surgical bed. Unchangedsmall extra-axial postoperative collection underlying the craniotomy. Calles-white matter differentiation is maintained elsewhere. No newintracranial hemorrhage. No hydrocephalus. Basilar cisterns are patent. The visualized paranasal sinuses and mastoid air cells demonstrate noacute or significant findings. The visualized orbits are grosslyunremarkable. Decreased right scalp soft tissue swelling. IMPRESSION: 1. Evolving postsurgical changes as above, with decreased edema andassociated decreased mass effect. 2. No new acute intracranial hemorrhage. Please note that all CT scans at this facility use dose modulation,iterative reconstruction, and/or weight-based dosing when appropriate toreduce radiation dose to as low as reasonably achievable. Dictated by Ronny Ingram MD @ 04/24/2024 3:28:47 AM (Electronically Signed) Dominick Sales MD CT * (ABNORMAL) BLOOD CULTURE MULTIPLEX PCR (04/24/2024 1:00 AM CDT) Organism(s) Detected Enterobacte riaceae(AA) No organism targets detected., Invalid 04/24/2024 7:24 PM CDT [facility] Resistance Gene(s) None detected None detected 04/24/2024 7:24 PM CDT [facility] CTX-M (ESBL-resistance gene) NOT Detected 04/24/2024 7:24 PM CDT [facility] IMP (carbapenem-resistanc e gene) NOT Detected NOT Detected, N/A 04/24/2024 7:24 PM CDT [facility] KPC (carbapenem-resistanc e gene) NOT Detected NOT Detected, N/A 04/24/2024 7:24 PM CDT [facility] mcr-1 (colistin-resistance gene) N/A 04/24/2024 7:24 PM CDT [facility] mecA/C (methicillin-resistan ce gene) N/A 04/24/2024 7:24 PM CDT [facility] mecA/C and MREJ (methicillin-resistan ce gene) N/A 04/24/2024 7:24 PM CDT [facility] NDM (carbapenem-resistanc e gene) NOT Detected NOT Detected, N/A 04/24/2024 7:24 PM CDT [facility] OXA-48 like (carbapenem-resistanc e gene) NOT Detected NOT Detected, N/A 04/24/2024 7:24 PM CDT [facility] van A/B (vancomycin-resistanc e genes) N/A 04/24/2024 7:24 PM CDT [facility] VIM (carbapenem-resistanc e gene) NOT Detected NOT Detected, N/A 04/24/2024 7:24 PM CDT [facility] Enterococcus faecalis NOT Detected 04/24/2024 7:24 PM CDT [facility] Enterococcus faecium NOT Detected 04/24/2024 7:24 PM CDT [facility] Listeria monocytogenes NOT Detected 04/24/2024 7:24 PM CDT [facility] Staphylococcus NOT Detected 04/24/2024 7:24 PM CDT [facility] Staphlococcus aureus NOT Detected 04/24/2024 7:24 PM CDT [facility] Staphylococcus epidermidis NOT Detected 04/24/2024 7:24 PM CDT [facility] Staphylococcus lugdunensis NOT Detected 04/24/2024 7:24 PM CDT [facility] Streptococcus NOT Detected 04/24/2024 7:24 PM CDT [facility] Streptococcus agalactiae (Group B) NOT Detected 04/24/2024 7:24 PM CDT [facility] Streptococcus pneumoniae NOT Detected 04/24/2024 7:24 PM CDT [facility] Streptococcus pyogenes (Group A) NOT Detected 04/24/2024 7:24 PM CDT [facility] Acinetobacter calcoaceticus-michela ii complex NOT Detected 04/24/2024 7:24 PM CDT [facility] Enterobacteriaceae Detected 2023 7:24 PM CDT [facility] Enterobacter cloacae complex NOT Detected 04/24/2024 7:24 PM CDT [facility] Escherichia coli NOT Detected 04/24/2024 7:24 PM CDT [facility] Klebsiella oxytoca NOT Detected 04/24/2024 7:24 PM CDT [facility] Klebsiella pneumoniae group NOT Detected 04/24/2024 7:24 PM CDT [facility] Proteus NOT Detected 04/24/2024 7:24 PM CDT [facility] Serratia marcescens NOT Detected 04/24/2024 7:24 PM CDT [facility] Haemophilus influenzae NOT Detected 04/24/2024 7:24 PM CDT [facility] Neisseria meningitidis NOT Detected 04/24/2024 7:24 PM CDT [facility] Pseudomonas aeruginosa NOT Detected 04/24/2024 7:24 PM CDT [facility] Nina albicans NOT Detected 04/24/2024 7:24 PM CDT [facility] Nina glabrata NOT Detected 04/24/2024 7:24 PM CDT [facility] Nina krusei NOT Detected 04/24/2024 7:24 PM CDT [facility] Nina parapsilosis NOT Detected 04/24/2024 7:24 PM CDT [facility] Nina tropicalis NOT Detected 04/24/2024 7:24 PM CDT [facility] Bacteroides fragilis group NOT Detected 04/24/2024 7:24 PM CDT [facility] Klebsiella aerogenes NOT Detected 04/24/2024 7:24 PM CDT [facility] Salmonella NOT Detected 04/24/2024 7:24 PM CDT [facility] Stenotrophomonas maltophilia NOT Detected 04/24/2024 7:24 PM CDT [facility] Nina auris NOT Detected 04/24/2024 7:24 PM CDT [facility] Cryptococcus neoformans/gattii NOT Detected 04/24/2024 7:24 PM CDT [facility] Blood BLOOD SPECIMEN / Unknown Venipuncture / Unknown 04/24/2024 1:00 AM CDT 04/24/2024 1:07 AM CDT Dominick Sales MD MICROBIOLOGY Performing Organization Address [facility]/ZIP Co de Phone Number [facility] [address] [place] [address], * (ABNORMAL) GLUCOSE METER (04/21/2024 12:39 PM CDT) Only the most recent of13 resultswithin the time period is included. GLUCOSE METER 116(H) 65 - 100 mg/dL 04/21/2024 12:41 PM CDT [facility] Blood BLOOD SPECIMEN / Unknown 04/21/2024 12:39 PM CDT 04/21/2024 12:41 PM CDT Bia Bates MD CHEMISTRY Performing Organization Address [facility] Co de Phone Number [facility] [address] [place] [address], * SCAN-CARDIAC STRIP (04/20/2024 9:59 AM CDT) Scanner OTHER * PHOSPHORUS (04/20/2024 5:15 AM CDT) PHOSPHORUS 3.3 2.5 - 4.5 mg/dL 04/20/2024 6:09 AM CDT [facility] Blood BLOOD SPECIMEN / Unknown Venipuncture / Unknown 04/20/2024 5:15 AM CDT 04/20/2024 5:33 AM CDT Quique Gonzalez MD CHEMISTRY Performing Organization Address [facility] Co de Phone Number [facility] [address] [place] [address], * EXTRA TUBE LIGHT GREEN (04/19/2024 11:53 AM CDT) Blood BLOOD SPECIMEN / Unknown Non-Lab Venipuncture / Unknown 04/19/2024 11:53 AM CDT 04/19/2024 12:14 PM CDT Quique Gonzalez MD LABORATORY [facility] [address] [place] [address], * MR HEAD BRAIN INTRAOPERATIVE WWO (04/19/2024 11:32 AM CDT) Anatomical Region Laterality Modality BRAIN Magnetic Resonan ce 04/19/2024 12:2 9 PM CDT Impressions 04/19/2024 12:29 PM CDT 1. 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 2. 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 Dictated by Naveen Salazar MD @ 04/19/2024 12:29:29 PM (Electronically Signed) Narrative 04/19/2024 12:29 PM CDT For Patients: ??As a result of the Century Cures Act, medical imaging exams and procedure reports are released immediately into your electronic medical record. ??You may view this report before your referring provider. ??If you have questions, please contact your health care provider. INDICATION: Brain mass. TECHNIQUE T1, T1 postcontrast, and axial diffusion intraoperative MR images of the brain. COMPARISON: MRI brain 04/19/2024. FINDINGS: Postsurgical changes secondary to interval right temporal craniotomy with resection cavity in the lateral right temporal lobe. Mild pneumocephalus. Thin intrinsic T1 shortening along the resection margins, compatible with blood products and/or hemostatic agent. Interval essential gross total resection of enhancing neoplasm in the right temporal region. Thin enhancement along the margins of the resection cavity is favored to represent postoperative sequela. Small diffusion restriction adjacent to the resection cavity, compatible with recent ischemia/infarction. Small recent infarction is visualized in the lateral right cerebellar hemisphere. Procedure Note Naveen Salazar MD - 04/19/2024 For Patients: As a result of the Century Cures Act, medical imagingexams and procedure reports are released immediately into your electronicmedical record. You may view this report before your referring provider.If you have questions, please contact your health care provider. INDICATION: Brain mass. TECHNIQUE T1, T1 postcontrast, and axial diffusion intraoperative MR images of thebrain. COMPARISON: MRI brain 04/19/2024. FINDINGS: Postsurgical changes secondary to interval right temporal craniotomy withresection cavity in the lateral right temporal lobe. Mild pneumocephalus.Thin intrinsic T1 shortening along the resection margins, compatible withblood products and/or hemostatic agent. Interval essential gross totalresection of enhancing neoplasm in the right temporal region. Thinenhancement along the margins of the resection cavity is favored torepresent postoperative sequela. Small diffusion restriction adjacent to the resection cavity, compatiblewith recent ischemia/infarction. Small recent infarction is visualized inthe lateral right cerebellar hemisphere. IMPRESSION: 1. Intraoperative MRI demonstrates interval essential gross totalresection of heterogeneously enhancing neoplasm in the right temporalregion. 2. Small recent infarction within the lateral right cerebellarhemisphere. Dictated by Naveen Salazar MD @ 04/19/2024 12:29:29 PM (Electronically Signed) Gerardo Her MD MR * HCHG CATH PR5, HCHG TUBING PR1, HCHG TUBING PR20, HCHG DRSG PR1, HCHG KIT PR5 (04/19/2024 10:04 AM CDT) Narrative Chad Elder MD - 04/19/2024 10:04 AM CDT Chad Elder MD ? 04/19/2024 10:04 AM Arterial Line Patient location during procedure: OR Indications: monitoring Requesting provider: Chad Elder MD Staffing Preanesthetic Checklist Completed: patient identified, risks and benefits discussed, consent obtained and timeout performed Arterial Line Patient position: supine. ??Comment:. Laterality: left Site: radial Securement/dressing: dressing applied. ??Comment: Needle Catheter size: 20 G. ??Comment:. Catheter length: 4.5 cm. ??Comment: Events: no complications. Additional Notes Placed post induction. Chad Elder MD ANESTHESIA PX NOT E ORDERABLES * MGMT AP SEND-OUT (04/19/2024 9:59 AM CDT) Tissue TISSUE SPECIMEN / Unknown 04/19/2024 9:59 AM CDT 04/24/2024 1:48 PM CDT Gerardo Her MD LABORATORY Performing Organization Address [facility] Co de Phone Number [facility] [address] [place] [id number], * FOCUS (04/19/2024 9:39 AM CDT) Tissue TISSUE SPECIMEN / Unknown 04/19/2024 9:39 AM CDT 04/24/2024 8:20 AM CDT Gerardo Her MD LABORATORY Performing Organization Address [facility] Co de Phone Number [facility] [address] [place] [id number], * HCHG TUBE PR1, HCHG INSTRUMENT DISP PR10, HCHG STYLET PR1 (04/19/2024 8:51 AM CDT) Narrative Ruben Gaviria CRNA - 04/19/2024 8:51 AM CDT Ruben Gaviria CRNA ? 04/19/2024 ??8:53 AM Procedure: ETT Patient location during procedure: OR ETT Properties Mask Ventilation: oral airway Final Technique: video laryngoscopy Type: straight Location: oral Cuffed: yes Tube Size: 7.5 mm Stylet: yes Laryngoscope Blade: Glidescope Blade Size: 3 Cormack-Lehane Grade View: 1 Insertion Attempts: 1 Placement Verification: auscultation, end tidal CO2 and symmetrical chest wall movement Assessment: pharynx clear, atraumatic and dentition unchanged Secured at: 22 Measured From: teeth Difficulty: 0 (not difficult) Chad Elder MD ANESTHESIA PX NOT E ORDERABLES * MR Brain w Contrast (04/19/2024 8:41 AM CDT) Anatomical Region Laterality Modality BRAIN, HEAD Magnetic Resonan ce 04/19/2024 9:01 AM CDT Impressions 04/19/2024 9:01 AM CDT MRI for purposes of surgical stereotaxis demonstrates the heterogeneously enhancing 7.5 cm lesion within the right temporal lobe, mildly increased in size. Mass effect results in 14 mm leftward midline shift and trapping of the left lateral ventricle. Dictated by Naveen Salazar MD @ 04/19/2024 9:01:05 AM (Electronically Signed) Narrative 04/19/2024 9:01 AM CDT For Patients: ??As a result of the Cures Act, medical imaging exams and procedure reports are released immediately into your electronic medical record. ??You may view this report before your referring provider. ??If you have questions, please contact your health care provider. INDICATION: Brain mass. TECHNIQUE: T1 postcontrast MR images of the brain for purposes of surgical stereotaxis. COMPARISON: MRI brain 04/11/2024. FINDINGS: Fiducial markers in place. Large, heterogeneously enhancing mass within the right temporal lobe measuring 7.5 x 4.8 x 5.5 cm (AP/TR/CC), mildly increased in size. Small enhancing lesion component extending into the right temporal calvarium and overlying temporalis musculature. Mass effect results in local sulcal effacement, severe right lateral and 3rd ventricular effacement, trapping of the left lateral ventricle, and 14 mm leftward midline shift. Procedure Note Naveen Salazar MD - 04/19/2024 For Patients: As a result of the Cures Act, medical imagingexams and procedure reports are released immediately into your electronicmedical record. You may view this report before your referring provider.If you have questions, please contact your health care provider. INDICATION: Brain mass. TECHNIQUE: T1 postcontrast MR images of the brain for purposes of surgicalstereotaxis. COMPARISON: MRI brain 04/11/2024. FINDINGS: Fiducial markers in place. Large, heterogeneously enhancing mass within the right temporal lobemeasuring 7.5 x 4.8 x 5.5 cm (AP/TR/CC), mildly increased in size. Smallenhancing lesion component extending into the right temporal calvarium andoverlying temporalis musculature. Mass effect results in local sulcaleffacement, severe right lateral and 3rd ventricular effacement, trappingof the left lateral ventricle, and 14 mm leftward midline shift. IMPRESSION: MRI for purposes of surgical stereotaxis demonstrates the heterogeneouslyenhancing 7.5 cm lesion within the right temporal lobe, mildly increasedin size. Mass effect results in 14 mm leftward midline shift and trappingof the left lateral ventricle. Dictated by Naveen Salazar MD @ 04/19/2024 9:01:05 AM (Electronically Signed) Gerardo Her MD MR * SCAN-CARDIAC STRIP (04/18/2024 8:00 PM CDT) Scanner OTHER * CK TOTAL (04/17/2024 3:31 AM CDT) Pathologist [facility] CK,TOTAL 64 39 - 308 IU/L 04/17/2024 5:02 AM CDT [facility] Blood BLOOD SPECIMEN / Unknown Non-Lab Venipuncture / Unknown 04/17/2024 3:31 AM CDT 04/17/2024 3:39 AM CDT Johnson Echevarria MD CHEMISTRY [facility] [address] [place] [phone], * SCAN-CARDIAC STRIP (04/17/2024 12:00 AM CDT) Narrative 04/17/2024 12:00 AM CDT Ordered by an unspecified provider. Other Clinical Staff OTHER * (ABNORMAL) LIPID PANEL W REFLEX MEASURED LDL (02/11/2014 8:12 AM CDT) CHOLESTEROL,TOTA L 257(H) 100 - 199 mg/dL [facility] TRIGLYCERIDES 514(H) <150 mg/dL [facility] HDL CHOLESTEROL 54 >40 mg/dL [facility] CHOL/HDL RATIO 4.76(H) <4.50 [facility] NON-HDL CHOLESTEROL 203 Undefined mg/dL [facility] LDL CHOLESTEROL ?? Invalid LDL when Trig >[address] [facility] PATIENT STATUS Fasting [facility] Blood specimen (specimen) BLOOD SPECIMEN / Unknown 02/11/2014 8:12 AM CDT 02/11/2014 8:06 AM CDT Anali Bailey MD CHEMISTRY [facility] [place] ZIP [id number] [place] [address] from Last 3 Months or Most Recently Relevant to Health Maintenance Additional Health Concerns Infection Onset Date Last Indicated MRSA Comment:Order Contact Precaution Nares surveillance cultures needed to clear patient if <12 months since positive culture. If >12 months since positive culture, precautions can be discontinued if patient has no MRSA risk factors. 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 @ [place], 07/22/19 @ [place], Soft tissue infection of right stump 10/2017 exclusions for contact precaution discontinuation (if > 12 months since positive culture): resides in acute/snf care, receiving hemodialysis, has chronic open wounds/skin damage, has long-term percutaneous indwelling medical devices Exclusions for nares collection (if <12 months since positive culture) include all of the previous exclusions plus patients on antibiotics 7 days prior to collection 11/28/2017 11/28/2017 Advance Directives Documents on File Type Date Recorded Patient Precision Honing Machine Operator Expl anation Healthcare Directive 04/25/2024 INVALID , MISSING PAGE, 04/25/2024 * Full Code (Latest Code Status on File) Date Activated Date Inactivated Comments 04/17/2024 8:30 AM 04/29/2024 4:53 PM Question Answer Comments Code Status Discussion: Reviewed Preferences * Full Code Date Activated Date Inactivated Comments 12/22/2016 11:17 PM 12/24/2016 8:25 PM Question Answer Comments Code Status Discussion: Per Existing Order Care Teams Developmental Training Counselor Relationship Specialty Start Date End Date Rodrigo Hughes MD [address] [place] [address] PCP - General Family Practice 05/01/24 Trini Pearson, RN [address] [address] Nurse Navigator - Oncology Registered Nurse 05/01/24 Shannon Ryder DO [address] [address] Neurooncology Neurology 05/01/24 Jacobo Flores NP [address] [address] Neurooncology Nurse Practitioner - Family 05/01/24
== END 2024-04-17 01:38 | disposition home or self-care (01) ==
LOC: AMB 05-06 22:39
PROVIDERS: PCP Family Medicine; Visit Provider Family Medicine
DX: R51.9 Headache, unspecified (principal)

== ENCOUNTER 2024-05-08 16:56 | Outpatient (CLI) | payer OTHER, SELFPAY ==
--- OUTSIDE RECORDS SUMMARY | 2024-05-08 16:59 | XMS_ITS ---
Author Organization [facility] Address [address] [place] [address] Care Team Providers Care Air Traffic Systems Technician Name Role Phone Unavailable Unavailable Unavailable Surgery Details Not on file Complications Check Surgery Details section. Procedure Estimated Blood Loss Check Surgery Details section. Procedure Findings Check Surgery Details section. Procedure Specimens Taken Check Surgery Details section.
--- OUTSIDE RECORDS SUMMARY | 2024-05-08 16:59 | XMS_ITS | Clinical Summary ---
Author Organization [facility] Address [address] [place] [address] Care Team Providers Care Animal Handler Name Role Phone Elsewhere, Pcp Primary Care Provider Unavailabl e Source Comments Patient records contain information from all sites at [facility]. For routine questions regarding patient records, call [phone] during business hours, M-F 8:00 AM - 5:00 PM Central Time. Record requests for emergency care only can be directed to [phone] at any time.[facility] Allergies No known active allergies Medications Medication Sig Dispensed Refills Start Date End Date Status gabapentin (NEURONTIN) 300 mg capsule Take 900 mg by mouth. 900 mg in am and midday and 1200 mg at bedtime 08/13/2018 Active loratadine-pseudoe phedrine (CLARITIN-D 24-hour) 10-240 mg per 24 hr tablet Take 1 tablet by mouth daily. Active FLUoxetine (PROzac) 40 mg capsule Take 40 mg by mouth daily. 3 08/21/2019 Active ibuprofen (ADVIL,MOTRIN) 200 mg tablet Take 1 tablet (200 mg total) by mouth every 8 (eight) hours as needed for moderate pain or score 4-6 of 10. 30 tablet 1 10/18/2019 Active Additional Information Patient not taking.Reported on 05/08/2024 acetaminophen (TYLENOL) 500 mg tablet Take 2 tablets (1,000 mg total) by mouth 4 (four) times a day. Do not exceed 4 gm (4,000 mg) of acetaminophen in a 24 hour period from all sources 30 tablet 11/19/2019 Active Additional Information Patient not taking.Reported on 05/08/2024 mupirocin (BACTROBAN) 2 % ointment Apply 1 application topically 3 (three) times a day. 22 g 1 05/07/2020 Active Additional Information Patient not taking.Reported on 05/08/2024 mupirocin (BACTROBAN) 2 % ointment Apply 1 application topically 3 (three) times a day. Apply to each nostril 3 times daily. 22 g 09/06/2021 Active Additional Information Patient not taking.Reported on 05/08/2024 oxyCODONE (ROXICODONE) 5 mg immediate release tabletIndications: Acute Pain Take 1 tablet (5 mg total) by mouth every 4 (four) hours as needed for pain (Take if pain is not controlled with Tylenol alone.) for up to 15 doses Indication: acute pain. 15 tablet 09/11/2021 Active Additional Information Patient not taking.Reported on 05/08/2024 cetirizine (ZyrTEC) 5 mg tablet Take 1 tablet (5 mg total) by mouth daily. 7 tablet 09/11/2021 Active Additional Information Patient not taking.Reported on 05/08/2024 amoxicillin (AMOXIL) 500 mg capsule TAKE 1 CAPSULE BY MOUTH THREE TIMES DAILY FOR 7 DAYS 04/19/2022 Active chlorhexidine (PERIDEX) 0.12 % mouthwash RINSE MOUTH WITH 15 ML FOR 30 SECONDS AM AND PM AFTER TOOTHBRUSHING. EXPECTORATE AFTER RINSING. DO NOT SWALLOW. 04/19/2022 Active miscellaneous medical [place] [facility] [place] for [place] use at pressure: [...] Need: 99 months, Frequency of use: Daily 08/11/2020 Active naltrexone (DEPADE) 50 mg tablet Take 50 mg by mouth daily. 04/19/2022 Active sildenafil (REVATIO) 20 mg tablet TAKE 1 TO 5 TABLETS BY MOUTH DAILY NEEDED 04/04/2022 Active mupirocin (BACTROBAN) 2 % ointment APPLY TOPICALLY TO THE AFFECTED AREA THREE TIMES DAILY NEEDED 22 g 2 08/10/2022 Active Additional Information Patient not taking.Reported on 05/08/2024 famotidine (PEPCID) 20 mg tablet Take 1 tablet by mouth 2 (two) times a day. 04/29/2024 Active dexAMETHasone (DECADRON) 2 mg tablet Take 2 mg by mouth. 04/29/2024 Activ e levETIRAcetam (KEPPRA) 500 mg tablet Take 1 tablet by mouth 2 (two) times a day. 04/12/2024 Active losartan (COZAAR) 50 mg tablet Take 50 mg by mouth 2 (two) times a day. 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 Malignant Neoplasm Of Brain (HCC) 05/08/2024 12:21 PM CDT Hospital Encounter Department of Radiation Oncology in [address] [address] Genesis Aguilar M.D. Malignant Neoplasm Of Brain (HCC) (Primary Dx) 05/03/2024 Orders Only Department of Radiation Oncology in [address] [phone] Gaby Arrington APRN, C.N.P., D.N.P. Malignant Neoplasm Of Brain (HCC) (Primary Dx) from Last 3 Months Immunizations Name Administration Dates Next Due Tdap 08/18/2019 influenza vaccine quad (FLUZ ONE/FLUARIX) (6 months and older)(PF) 11/16/2019 Social History Tobacco Use Types Packs/Day Years Used Date Smoking Tobacco: Never Smokeless Tobacco: Former Chew Quit: 05/27/2018 Alcohol Use Standard Drinks/Week Comments Yes 0 (1 standard drink = 0.6 oz pur e alcohol) 3-4 beers per week Social Connection and Isolation Panel [NHANES] A nswer Date Recorded In a typical week, how many times do you talk on the phone with family, friends, or neighbors? Patient declined 07/26/2021 How often do you get togethe r with friends or relatives? Patient declined 07/26/2021 How often do you attend pentecostalism or faith serv ices? Patient declined 07/26/2021 Do you belong to any clubs o r organizations such as pentecostalism groups, unions, fraternal or athletic groups, or school groups? Patient declined 07/26/2021 How often do you attend meet ings of the clubs or organizations you belong to? Patient declined 07/26/2021 Are you , , di vorced, , never , or living with a partner? 07/26/2021 AUDIT-C Answer Date Recorded Q1: How often do you have a drink containing alc ohol? Patient declined 07/26/2021 Average Number of Drinks Not on file 021 Frequency of Binge Drinking Not on file 06/29 Overall Financial Resource Strain (CARDIA) Answe r Date Recorded How hard is it for you to pa y for the very basics like food, housing, medical care, and heating? Patient declined 07/26/2021 [facility] of Occupat ional Health - Occupational Stress Questionnaire Answer Date Recorded Do you feel stress - tense, restless, nervous, or anxious, or unable to sleep at night because your mind is troubled all the time - these days? To some extent 07/26/2021 Exercise Vital Sign Answer Date Recorde d On average, how many days pe r week do you engage in moderate to strenuous exercise (like a brisk walk)? 2 days 07/26/2021 On average, how many minutes do you engage in exercise at this level? 30 min 07/26/2021 Hunger Vital Sign Answer Date Recorded Within the past 12 months, y ou worried that your food would run out before you got the money to buy more. Patient declined Within the past 12 months, t he food you bought just didn't last and you didn't have money to get more. Patient declined PRAPARE - Transportation Answer Date Re corded In the past 12 months, has l ack of transportation kept you from medical appointments or from getting medications? No 06/29 In the past 12 months, has l ack of transportation kept you from meetings, work, or from getting things needed for daily living? No 07/26/2021 Housing Stability Vital Sign Answer Mateus e Recorded In the last 12 months, was t here a time when you were not able to pay the mortgage or rent on time? Patient refused 07/26/20 21 In the last 12 months, how many places have you lived? 1 07/26/2021 In the last 12 months, was t here a time when you did not have a steady place to sleep or slept in a nursing home (including now)? Patient refused 07/26/2021 Nutrition Answer Date Recorded On average, how many serving s of fruits and vegetables do you eat per day (serving size is equal to 1 cup or approximately the size of a tennis ball)? 2-3 07/26/2021 Dental Answer Date Recorded Dental: Regular Dentist Yes 11/23/20 22 Employment Answer Date Recorded Employment status Unemployed/not in th e paid workforce and NOT seeking employment 07/26/2021 Education Answer Date Recorded What is the highest level of school you have completed or the highest degree you have received? 12th grade 04/06/2020 Sex and Gender Information Value Date Recorded Sex Assigned at Not on file Gender Identity Male 04/06/2020 9:34 AM CDT Sexual Orientation Straight 04/06/2020 9: 34 AM CDT Last Filed Vital Signs Vital Sign Reading Time Taken Comments Blood Pressure 146/89 05/08/2024 12:57 PM CDT Pulse 83 05/08/2024 12:52 PM CDT Temperature 36.7 ??C (98 ??F) 05/08/2024 12:52 PM CDT Respiratory Rate 18 10/08/2021 4:40 PM MERCURY CELL CLEANER Oxygen Saturation 96% 10/08/2021 4:40 PM MERCURY CELL CLEANER Inhaled Oxygen Concentration - - Weight 116 kg (256 lb 6.3 oz) 05/08/2024 12:52 P M CDT Height 177.8 cm (5' 10) 10/08/2021 3:55 PM MERCURY CELL CLEANER Body Mass Index 36.79 10/08/2021 3:55 PM MERCURY CELL CLEANER Plan of Treatment Upcoming Encounters Date Type Department Care Team (Late st Contact Info) Description 05/20/2024 10:00 AM CDT Appointment Department of Radiation Oncology in [place], [place] [address] [place] [address] Genesis Aguilar M.D. [address] [place] [address] Health Maintenance Due Date Last Done Comments CT Colonography 1974 Cologuard 1974 Colonoscopy 1974 Colorectal Cancer Surveillance 1974 HIV Screening 1974 Lipid (Cholesterol) Screening 1974 COVID-19 Vaccine (#1) 1979 Pneumococcal vaccine (0-64 years) (1 of 2 - PCV) 1980 Hepatitis B Vaccines (1 of 3 - 19+ 3-dose series) 1993 Zoster Vaccines (1 of 2) 1993 Influenza Vaccine (#1) 2023 11/16/2019, 2017 Depression Screening (Annual PHQ-2) 11/27/2023 Creatinine Level (Kidney Function Test) 05/01/2025 05/01/2024, 04/25/2024, 04/25/2024, Additional history exists Potassium Level 05/01/2025 05/01/2024, 03/29, 04/25/2024, Additional history exists Sodium Level 05/01/2025 05/01/2024, 0601/2024, 04/28/2024, Additional history exists Fasting Glucose for Diabetes Screening 05/01/2027 05/01/2024, 04/25/2024, 04/20/2024, Additional history exists DTaP,Tdap,and Td Vaccines (3 - Td or Tdap) 08/18/2029 08/18/2019, 05/21/2012 HPV Vaccines Aged Out No longer eligi ble based on patient's age to complete this topic Medical Devices Implanted Type Area Roadway Engineer Device Identifier Shelf Expiration Date Model / Serial / Lot Clp Feb Lgs Intnl 9.0 - [id number] Implanted:Qty : 1 on 09/09/2021 by Sanford Mena M.D. at [facility] Hardware e.g. pins/screws/ rods Right: Leg Ethicon [id number] 05/26/2026 MCS20 / / [id number] Clp Apr [facility] 9.75 - [id number] Implanted:Qty : 1 on 09/09/2021 by Sanford Mena M.D. at [facility] Hardware e.g. pins/screws/ rods Right: Leg Ethicon [id number] 05/26/2026 MSM20 / / [id number] Explanted Type Area Roadway Engineer Device Identifier Shelf Expiration Date Model / Serial / Lot Cmnt Bn Hi Visc Pmma 40 - [id number] Implanted:Qty: 1 on 11/15/2019 by Maude Shah M.D. at [facility] Explanted:Qty: 1 on 12/03/2019 by Sanford Mena M.D. at [facility] Bone Cement Right: Femur Garvin [id number] 6191-1-00 / / Description:7 antibiotic juaquin ent beads and 1 antibiotic cement dowel removed from right femur/leg Procedures Procedure Name Priority Date/Time Associated Diagnosis Comments INITIAL RAD ONC TREATMENT PLANNING CT SIMULATION Routine 05/08/2024 2:00 PM CDT Malignant Neoplasm Of Brain (HCC) EXTI COMPREHENSIVE METABOLIC PANEL, S/P Routine 05/01/2024 2:[address] NEURO Routine 04/24/2024 3:[address] NEURO Routine 04/20/2024 4:05 AM CDT OUTSIDE MR NEURO Routine 04/19/2024 8:50 AM CDT OUTSIDE MR NEURO Routine 04/19/2024 8:[address] NEURO Routine 04/17/2024 4:55 AM CDT OUTSIDE MR NEURO Routine 04/11/2024 3:[address] NEURO Routine 04/11/2024 2:15 PM CDT from Last 3 Months or Most Recently Relevant to Health Maintenance Results * Initial Rad Onc Treatment Planning CT Simulation (05/08/2024 2:00 PM CDT) Narrative [facility] - 05/08/2024 2:00 PM CDT Sheri Wilson, RTT ? 05/08/2024 ??3:06 PM Initial Rad Onc Treatment Planning CT Simulation Performed by: Genesis Aguilar M.D. Authorized by: Genesis Aguilar M.D. ?? Genesis Aguilar M.D. RADIATION ONCOLOG Y ORDERABLES Performing Organization Address City/[facility] Co de Phone Number GARSIA KITA na * CT HEAD BRAIN WO-Outside CT Neuro (04/24/2024 3:05 AM CDT) Only the most recent of4 resultswithin the time period is included. Narrative [facility] - 05/02/2024 1:02 PM CDT This order has been created and auto-finalized to support the import of outside images. If available, original interpretation can be found on the Media Tab in Chart Review, in Document Viewer, as an image in QREADS or as an Addendum. If a re-interpretation or overread is required please follow defined workflow.?? Provider Not In System IMG CT PROCEDURES Performing Organization Address City/[facility]/ZIP Co de Phone Number [facility] NA * MR HEAD BRAIN INTRAOPERATIVE WWO-Outside MR Neuro (04/19/2024 8:50 AM CDT) Only the most recent of3 resultswithin the time period is included. Narrative [facility] - 05/02/2024 1:05 PM CDT This order has been created and auto-finalized to support the import of outside images. If available, original interpretation can be found on the Media Tab in Chart Review, in Document Viewer, as an image in QREADS or as an Addendum. If a re-interpretation or overread is required please follow defined workflow.?? Provider Not In System IMG MRI PROCEDURE S [facility] NA from Last 3 Months Advance Directives For more information, please contact: [phone] * Full Code (Latest Code Status on File) Date Activated Date Inactivated Comments 11/15/2019 6:43 PM 11/19/2019 2:50 PM Question Answer Comments Full Code: Not Discussed Due to: Not medically appropriate * Full Code Date Activated Date Inactivated Comments 10/17/2019 2:46 PM 10/18/2019 7:49 PM Question Answer Comments Full Code: Discussed * Full Code Date Activated Date Inactivated Comments 07/22/2019 4:07 PM 07/24/2019 2:42 PM Question Answer Comments Full Code: Discussed Care Teams Animal Handler Relationship Specialty Start Date End Date Elsewhere, Pcp PCP - General Family Medicine 09/09/21
--- OUTSIDE RECORDS SUMMARY | 2024-05-08 16:59 | XMS_ITS | Encounter Summary ---
Author Organization [facility] Address [address] [place] [address] Care Team Providers Care Supervisor Cleaning And Annealing Name Role Phone Elsewhere, Pcp Primary Care Provider Unavailabl e Reason for Referral * Outpatient (Routine) - Authorized Specialty Diagnoses / Procedures Referred By Misa dinero Referred To Contact Social Work Diagnoses Malignant Neoplasm Of Brain (HCC) Mica Gonzalez M.D. [address] [place] [phone] [facility]ly [facility] Referral ID Status Reason Start Date Expiration Date V isits Requested Visits Authorized [id number] Authorized 05/08/2024 11/07/2025 1 1 Reason for Visit * Appointment Request (Routine) - Closed Specialty Diagnoses / Procedures Referred By Misa dinero Referred To Contact Radiation Oncology Diagnoses Glioma Brain (HCC) Shannon Ryder D.O. [address] [address] Referral ID Status Reason Start Date Expiration Date Visits Re quested Visits Authorized [id number] Closed 05/01/2024 05/01/2025 1 1 Encounter Details Date Type Department Care Team (Latest Contact Info) Description 05/08/2024 12:21 PM CDT Hospital Encounter Department of Radiation Oncology in [place], [place] [address] [place] [phone] Genesis Aguilar M.D. [address] [place] [phone] Malignant Neoplasm Of Brain (HCC) (Primary Dx) Social History Tobacco Use Types Packs/Day Years [...] declined 07/26/2021 How often do you attend adventism or jainism serv ices? Patient declined 07/26/2021 Do you belong to any clubs o r organizations such as adventism groups, unions, fraternal or athletic groups, or [...] medical care, and heating? Patient declined 07/26/2021 [facility] of Occupat ional Health - Occupational Stress [...] place to sleep or slept in a custodial (including now)? Patient refused 07/26/2021 Nutrition Answer [...] Orientation Straight 04/06/2020 9: 34 AM CDT documented as of this encounter Last Filed Vital Signs Vital Sign Reading Time Taken Comments Blood Pressure 146/89 05/08/2024 12:57 PM CDT Pulse 83 05/08/2024 12:52 PM CDT Temperature 36.7 ??C (98 ??F) 05/08/2024 12:52 PM CDT Respiratory Rate - - Oxygen Saturation - - Inhaled Oxygen Concentration - - Weight 116 kg (256 lb 6.3 oz) 05/08/2024 12:52 P M CDT Height - - Body Mass Index 36.79 10/08/2021 3:55 PM FIELD HAULER documented in this encounter Plan of Treatment Upcoming Encounters Date Type Department Care Team (Late st Contact Info) Description 05/20/2024 10:00 AM CDT Appointment Department of Radiation Oncology in [place], [place] [address] [place] [address] Genesis Aguilar M.D. [address] [place] [address] Scheduled Referrals Name Type Priority Associated Diagnoses Orde r Schedule Social Work - General consult (clinic) Outpatient Referral Routine Malignant Neoplasm Of Brain (HCC) Expected: 05/08/2024, Expires: 08/08/2025 documented as of this encounter Visit Diagnoses Diagnosis Malignant Neoplasm Of Brain (HCC)- Primary documented in this encounter Care Teams Supervisor Cleaning And Annealing Relationship Specialty Start Date End Date Elsewhere, Pcp PCP - General Family Medicine 09/09/21 documented as of this encounter
--- OUTSIDE RECORDS SUMMARY | 2024-05-08 16:59 | XMS_ITS ---
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 Past Plans Radiation Treatments * No radiation treatments are documented for this patient in [facility]. Treatments may have been administered in another system.
--- OUTSIDE RECORDS SUMMARY | 2024-05-08 16:59 | XMS_ITS | Encounter Summary ---
Author Organization [facility] Address [address] [place] [address] Care Team Providers Care Superintendent Transportation Name Role Phone Elsewhere, Pcp Primary Care Provider Unavailabl e Reason for Referral * Radiation Therapy (Routine) - Closed Specialty Diagnoses / Procedures Referred By Misa garcia Referred To Contact Diagnoses Malignant Neoplasm Of Brain (HCC) Procedures Initial Rad Onc Treatment Planning CT Simulation Genesis Aguilar M.D. [address] [place] [address] [facility] Region Referral ID Status Reason Start Date Expiration Date Visits Re quested Visits Authorized [id number] Closed 05/03/2024 05/03/2025 1 1 Reason for Visit * Radiation Therapy (Routine) - Closed Specialty Diagnoses / Procedures Referred By Misa garcia Referred To Contact Diagnoses Malignant Neoplasm Of Brain (HCC) Procedures Initial Rad Onc Treatment Planning CT Simulation Genesis Aguilar M.D. [address] [place] [address] [facility] Region Referral ID Status Reason Start Date Expiration Date Visits Re quested Visits Authorized [id number] Closed 05/03/2024 05/03/2025 1 1 Encounter Details Date Type Department Care Team (Latest Contact Info) Description 05/08/2024 2:00 PM CDT - 05/08/2024 3:32 PM CDT Hospital Encounter Department of Radiation Oncology in [place], [place] [address] [place] [phone] Genesis Aguilar M.D. [address] [place] [address] Malignant Neoplasm Of Brain (HCC) Social History Tobacco Use Types Packs/Day Years [...] declined 07/26/2021 How often do you attend islam or amish serv ices? Patient declined 07/26/2021 Do you belong to any clubs o r organizations such as islam groups, unions, fraternal or athletic groups, or [...] medical care, and heating? Patient declined 07/26/2021 [facility] [place] of Occupat ional Health - Occupational Stress [...] place to sleep or slept in a usp (including now)? Patient refused 07/26/2021 Nutrition Answer [...] AM CDT documented as of this encounter Medications at Time of Discharge Medication Sig Dispensed Refills Start Date End Date acetaminophen (TYLENOL) 500 mg tablet Take 2 tablets (1,000 mg total) by mouth 4 (four) times a day. Do not exceed 4 gm (4,000 mg) of acetaminophen in a 24 hour period from all sources 30 tablet 11/19/2019 amoxicillin (AMOXIL) 500 mg capsule TAKE 1 CAPSULE BY MOUTH THREE TIMES DAILY FOR 7 DAYS 04/19/2022 cetirizine (ZyrTEC) 5 mg tablet Take 1 tablet (5 mg total) by mouth daily. 7 tablet 09/11/2021 chlorhexidine (PERIDEX) 0.12 % mouthwash RINSE MOUTH WITH 15 ML FOR 30 SECONDS AM AND PM AFTER TOOTHBRUSHING. EXPECTORATE AFTER RINSING. DO NOT SWALLOW. 04/19/2022 dexAMETHasone (DECADRON) 2 mg tablet Take 2 mg by mouth. 04/29/2024 famotidine (PEPCID) 20 mg tablet Take 1 tablet by mouth 2 (two) times a day. 04/29/2024 FLUoxetine (PROzac) 40 mg capsule Take 40 mg by mouth daily. 3 08/21/2019 gabapentin (NEURONTIN) 300 mg capsule Take 900 mg by mouth. 900 mg in am and midday and 1200 mg at bedtime 08/13/2018 ibuprofen (ADVIL,MOTRIN) 200 mg tablet Take 1 tablet (200 mg total) by mouth every 8 (eight) hours as needed for moderate pain or score 4-6 of 10. 30 tablet 1 10/18/2019 levETIRAcetam (KEPPRA) 500 mg tablet Take 1 tablet by mouth 2 (two) times a day. 04/12/2024 loratadine-pseudoephe drine (CLARITIN-D 24-hour) 10-240 mg per 24 hr tablet Take 1 tablet by mouth daily. losartan (COZAAR) 50 mg tablet Take 50 mg by mouth 2 (two) times a day. 03/17/2024 miscellaneous medical supply [facility] CPAP machine for home use at pressure: [...] 99 months, Frequency of use: Daily 08/11/2020 mupirocin (BACTROBAN) 2 % ointment Apply 1 application topically 3 (three) times a day. 22 g 1 05/07/2020 mupirocin (BACTROBAN) 2 % ointment Apply 1 application topically 3 (three) times a day. Apply to each nostril 3 times daily. 22 g 09/06/2021 mupirocin (BACTROBAN) 2 % ointment APPLY TOPICALLY TO THE AFFECTED AREA THREE TIMES DAILY NEEDED 22 g 2 08/10/2022 naltrexone (DEPADE) 50 mg tablet Take 50 mg by mouth daily. 04/19/2022 oxyCODONE (ROXICODONE) 5 mg immediate release tabletIndications:Acu te Pain Take 1 tablet (5 mg total) by mouth every 4 (four) hours as needed for pain (Take if pain is not controlled with Tylenol alone.) for up to 15 doses Indication: acute pain. 15 tablet 09/11/2021 sildenafil (REVATIO) 20 mg tablet TAKE 1 TO 5 TABLETS BY MOUTH DAILY NEEDED 04/04/2022 documented as of this encounter Procedure Notes * Sheri Wilson, RTT - 05/08/2024 2:00 PM CDTAssociated Order(s): Initial Rad Onc Treatment Planning CT Simulation Pre-Procedure Diagnose(s): Malignant Neoplasm Of Brain (HCC) Post-Procedure Diagnose(s): Malignant Neoplasm Of Brain (HCC) Initial Rad Onc Treatment Planning CT Simulation Performed by: Genesis Aguilar M.D. Authorized by: Genesis Aguilar M.D. Simulation was performed under physician supervision based on physician order in preparation for radiation therapy. Physician was immediately available to provide assistance and direction throughout the procedure. Written consent for treatment was completed or confirmed. The patient was appropriately identified and placed in the treatment position using the necessary immobilization to ensure a reproducible treatment position. Reference azevedo were placed to facilitate marking of isocenter. Area scanned:Head and Neck Contrast used for the simulation procedure: None Patient position:head first supine Custom immobilization: 3 point mask and Custom neck rest Motion management: None Bolus: No CT guidance: Following positioning of the patient, a series of slices was obtained to be utilized in treatment planning. CT images were transferred to the [employer] treatment planning system, after a reference isocenter was determined and marked. Segmentation and treatment planning will take place prior to treatment delivery. Patient set up and imaging was appropriate and completed without incident. Boilermaker use:No Associated attestation - Genesis Aguilra M.D. - 05/08/2024 3:32 PM CDT I was present during all critical and sargent portions of the procedure(s) and immediately available [facility] the entire duration. See note for details. documented in this encounter Plan of Treatment Upcoming Encounters Date Type Department Care Team (Late st Contact Info) Description 05/20/2024 10:00 AM CDT Appointment Department of Radiation Oncology in [place], [place] [address] [place] [phone] Genesis Aguilar M.D. [address] [place] [address] documented as of this encounter Procedures Procedure Name Priority Date/Time Associated Diagnosis Comments INITIAL RAD ONC TREATMENT PLANNING CT SIMULATION Routine 05/08/2024 2:00 PM CDT Malignant Neoplasm Of Brain (HCC) documented in this encounter Results * Initial Rad Onc Treatment Planning CT Simulation (05/08/2024 2:00 PM CDT) Narrative [facility] - 05/08/2024 2:00 PM CDT Sheri Wilson, RTT ? 05/08/2024 ??3:06 PM Initial Rad Onc Treatment Planning CT Simulation Performed by: Genesis Aguilar M.D. Authorized by: Genesis Aguilar M.D. ?? Genesis Aguilar M.D. RADIATION ONCOLOG Y ORDERABLES [facility] na documented in this encounter Visit Diagnoses Diagnosis Malignant Neoplasm Of Brain (HCC) documented in this encounter Care Teams Superintendent Transportation Relationship Specialty Start Date End Date Elsewhere, Pcp PCP - General Family Medicine 09/09/21 documented as of this encounter
--- OUTSIDE RECORDS SUMMARY | 2024-05-08 16:59 | XMS_ITS | Referral Summary ---
Author Organization [facility] Address [address] [place] [address] Care Team Providers Care Scale Tank Operator Name Role Phone Elsewhere, Pcp Primary Care Provider Unavailabl e Source Comments Patient records contain information from all sites at [facility]. For routine questions regarding patient records, call [phone] during business hours, M-F 8:00 AM - 5:00 PM Central Time. Record requests for emergency care only can be directed to [phone] at any time.[facility] Encounters Date Type Department Care Team Description 05/08/2024 2:00 PM CDT - 05/08/2024 3:32 PM CDT Hospital Encounter Department of Radiation Oncology in [address] [address] Genesis Aguilar M.D. Malignant Neoplasm Of Brain (HCC) 05/08/2024 12:21 PM CDT Hospital Encounter Department of Radiation Oncology in [address] [address] Genesis Aguilar M.D. Malignant Neoplasm Of Brain (HCC) (Primary Dx) 05/03/2024 Orders Only Department of Radiation Oncology in [address] [address] Gaby Arrington APRN, C.N.P., D.N.P. Malignant Neoplasm Of Brain (HCC) (Primary Dx) from Last 3 Months Allergies No known active allergies Medications Medication [...] NOT SWALLOW. 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 Patient declined 07/26/2021 Do you belong to any clubs o r organizations such as mosque groups, unions, fraternal or athletic groups, or [...] medical care, and heating? Patient declined 07/26/2021 [facility] [place] of Occupat ional Health - Occupational Stress [...] place to sleep or slept in a snf (including now)? Patient refused 07/26/2021 Nutrition Answer [...] CDT Respiratory Rate 18 10/08/2021 4:40 PM SYRUPER Oxygen Saturation 96% 10/08/2021 4:40 PM SYRUPER Inhaled Oxygen Concentration - - Weight 116 kg (256 lb 6.3 oz) 05/08/2024 12:52 P M CDT Height 177.8 cm (5' 10) 10/08/2021 3:55 PM SYRUPER Body Mass Index 36.79 10/08/2021 3:55 PM SYRUPER Plan of Treatment Upcoming Encounters Date Type Department Care Team (Late st Contact Info) Description 05/20/2024 10:00 AM CDT Appointment Department of Radiation Oncology in [place], [place] [address] [place] [address] Genesis Aguilar M.D. [address] [place] [address] Medical Devices Implanted Type Area Supervisor Cloth Winding Device Identifier Shelf Expiration Date Model / Serial / Lot [facility]0 - [id number] Implanted:Qty : 1 on 09/09/2021 by Sanford Mena M.D. at [facility] Hardware e.g. pins/screws/ rods Right: Leg Ethicon [id number] 05/26/2026 [id number] / / [id number] [facility] - [id number] Implanted:Qty : 1 on 09/09/2021 by Sanford Mena M.D. at [facility] Hardware e.g. pins/screws/ rods Right: Leg Ethicon [id number] 05/26/2026 MSM20 / / [id number] Explanted Type Area Supervisor Cloth Winding Device Identifier Shelf Expiration Date Model / Serial / Lot Cmnt Bn Hi Visc Pmma 40 - [id number] Implanted:Qty: 1 on 11/15/2019 by Maude Shah M.D. at [facility] Explanted:Qty: 1 on 12/03/2019 by Sanford Mena M.D. at [facility] Bone Cement Right: Femur Aleta [id number] 6191-1-00 1 / / Description:7 antibiotic juaquin ent beads [...] RADIATION ONCOLOG Y ORDERABLES [facility] na * CT HEAD BRAIN WO-Outside CT Neuro (04/24/2024 3:05 AM CDT) Only the most recent of4 resultswithin the time period is included. Narrative [facility] - 05/02/2024 1:02 PM CDT This order [...] System IMG CT PROCEDURES Performing Organization Address [facility] de Phone Number [facility] NA * MR HEAD BRAIN INTRAOPERATIVE WWO-Outside MR Neuro (04/19/2024 8:50 AM CDT) Only the most recent of3 resultswithin the time period is included. Narrative [facility] - 05/02/2024 1:05 PM CDT This order [...] Not In System IMG MRI PROCEDURE S Performing Organization Address [facility] de Phone Number [facility] NA from Last 3 Months Advance Directives For more information, please contact: [phone] * Full Code (Latest Code Status on [...] Answer Comments Full Code: Discussed Care Teams Scale Tank Operator Relationship Specialty Start Date End Date Elsewhere, Pcp PCP - General Family Medicine 09/09/21
--- OUTSIDE RECORDS SUMMARY | 2024-05-08 16:59 | XMS_ITS | Encounter Summary ---
Author Organization [facility] Address [address] [place] [address] Care Team Providers Care Fiber Optics Engineer Name Role Phone Elsewhere, Pcp Primary Care Provider Unavailabl e Reason for Referral * Radiation Therapy (Routine) - Closed Specialty Diagnoses / Procedures Referred By Misa dinero Referred To Contact Diagnoses Malignant Neoplasm Of Brain (HCC) Procedures Initial Rad Onc Treatment Planning CT Simulation Genesis Aguilar M.D. [address] [place] [address] [facility] Region Referral ID Status Reason Start Date Expiration Date Visits Re quested Visits Authorized [id number] Closed 05/03/2024 05/03/2025 1 1 * MRI/CAT/PET Scan (Routine) - Pending Review Specialty Diagnoses / Procedures Referred By Misa dinero Referred To Contact Radiology Diagnoses Malignant Neoplasm Of Brain (HCC) Procedures MR Brain without and with IV Contrast Genesis Aguilar M.D. [address] [place] [address] [facility] Region Referral ID Status Reason Start Date Expiration Date V isits Requested Visits Authorized [id number] Pending Review 05/03/2024 05/03/2025 1 1 * Specialty Diagnoses / Procedures Referred By Misa dinero Referred To Contact Gaby Arrington APRN, C.N.P., D.N.P. [address] [place] [address] [facility] Region Referral ID Status Reason Start Date Expiration Date Visits Re quested Visits Authorized * Specialty Diagnoses / Procedures Referred By Contac t Referred To Contact Gaby Arrington APRN, C.N.P., D.N.P. [address] [place] [address] [facility] Region Referral ID Status Reason Start Date Expiration Date Visits Re quested Visits Authorized * Radiation Therapy (Routine) - Authorized Specialty Diagnoses / Procedures Referred By Misa dinero Referred To Contact Diagnoses Malignant Neoplasm Of Brain (HCC) Procedures Prior Auth Rad Tx IA IMRT COMPLEX IA GUIDANCE FOR LOC RAD TX IA IMRT RADIOTHERAPY PLAN Genesis Aguilar M.D. [address] [place] [address] [facility] Referral ID Status Reason Start Date Expiration Date V isits Requested Visits Authorized [id number] Authorized 05/15/2024 11/26/2024 30 30 * Radiation Therapy (Routine) - Authorized Specialty Diagnoses / Procedures Referred By Misa dinero Referred To Contact Diagnoses Malignant Neoplasm Of Brain (HCC) Procedures Management Visit Genesis Aguilar M.D. [address] [place] [address] [facility] Region Referral ID Status Reason Start Date Expiration Date V isits Requested Visits Authorized [id number] Authorized 05/03/2024 05/03/2025 10 10 Encounter Details Date Type Department Care Team (Late st Contact Info) Description 05/03/2024 Orders Only Department of Radiation Oncology in [place], [place] [address] [place] [phone] Gaby Arrington APRN, C.N.P., D.N.P. [address] [place] [address] Malignant Neoplasm Of Brain (HCC) (Primary Dx) [...] declined 07/26/2021 How often do you attend congregational or voodoo serv ices? Patient declined 07/26/2021 Do you belong to any clubs o r organizations such as congregational groups, unions, fraternal or athletic groups, or [...] medical care, and heating? Patient declined 07/26/2021 [facility] [place] of Occupat ional Health - Occupational Stress [...] place to sleep or slept in a residential (including now)? Patient refused 07/26/2021 Nutrition Answer [...] AM CDT documented as of this encounter Plan of Treatment Upcoming Encounters Date Type Department Care Team (Late st Contact Info) Description 05/20/2024 10:00 AM CDT Appointment Department of Radiation Oncology in [place], [place] [address] [place] [address] Genesis Aguilar M.D. [address] [place] [address] Scheduled Orders Name Type Priority Associated Diagnoses Order Schedule Management Visit Radiation Oncology Routine Malignant Neoplasm Of Brain (HCC) 10 Occurrences starting 05/03/2024 until 05/03/2025 Prior Auth Rad Tx Radiation Oncology Routine Malignant Neoplasm Of Brain (HCC) Ordered: 05/03/2024 MR Brain without and with IV Contrast Imaging RAD - Routine (most inpatients and all outpatients) Malignant Neoplasm Of Brain (HCC) Expected: 05/08/2024, Expires: 08/03/2025 Scheduled Referrals Name Type Priority Associated Diagnoses Orde r Schedule Radiation Oncology - PRO education visit Outpatient Referral Routine Malignant Neoplasm Of Brain (HCC) Expected: 05/03/2024 (Approximate), Expires: 08/03/2025 Radiation Oncology - Nurse education visit (clinic) Outpatient Referral Routine Malignant Neoplasm Of Brain (HCC) Expected: 05/03/2024 (Approximate), Expires: 05/03/2025 documented as of this encounter Results * Initial Rad Onc [...] Diagnosis Malignant Neoplasm Of Brain (HCC)- Primary Malignant Neoplasm Of Brain (HCC) documented in this encounter Care Teams Fiber Optics Engineer Relationship Specialty Start Date End Date Elsewhere, Pcp PCP - General Family Medicine 09/09/21 documented as of this encounter
--- OUTSIDE RECORDS SUMMARY | 2024-05-08 17:00 | XMS_ITS | Clinical Summary ---
Author Organization [facility] Address [place], [place] [address] Care Team Providers Care Cut Off Machine Helper Name Role Phone Rodrigo Hughes MD Primary Care Provider [phone] Trini Pearson RN Unavailable [phone] Shannon Ryder DO Unavailable [phone] Jacobo Flores PUBLIC ADDRESS SYSTEM MECHANIC Unavailable [phone] Allergies No known active [...] Encounters Date Type Department Care Team Description 05/07/[address] [facility] [address] [place] [address] Lydia Curtis, [facility] Social Work Contact 05/03/2024 Telephone [facility] [address] [facility] [address] [place] [phone] Trini Pearson, mental health aides teacher Nurse Navigation 05/02/2024 Patient Outreach [facility] [address] [place] [address] Kerry Mathew, KM Brain Injury Rehab Care Coordination - [facility] 05/01/2024 2:24 PM CDT - 05/01/2024 11:59 PM CDT Hospital Encounter [facility] [address] [place] [address] Mary Cotton, TRANSPORTATION DISPATCHER Therapeutic drug monitoring 05/01/2024 1:15 PM CDT Office Visit [facility] [address] [facility] [address] [place] [phone] Shannon Ryder DO Consult 05/01/2024 Orders Only [facility] [address] [facility] [address] [place] [address] Shannon Ryder DO <No scans attached> 05/01/2024 Orders Only [facility] [address] [facility] [address] [place] [address] Mary Cotton, TRANSPORTATION DISPATCHER <No scans attached> 05/01/2024 Travel 04/30/2024 Patient Outreach [facility] [address] [facility] [place] [address] Maude Jay, KM Primary RN Care Management; Hospital F/U (Mass of temporal lobe, 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, 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) 04/19/2024 7:45 AM CDT Anesthesia Event [facility] [address] [place] [address] Chad Elder MD Putz, Ruben Hill, KUSH 04/19/2024 7:00 AM CDT - 04/19/2024 12:12 PM CDT Surgery [facility] [address] [place] [address] Gerardo Her MD RIGHT CRANIOTOMY FOR REMOVAL OF MASS 04/19/2024 Travel 04/17/2024 3:06 AM CDT - 04/29/2024 2:53 PM CDT Hospital Encounter [facility] [address] [place] [address] Johnson Echevarria MD [facility] Hospitalists [facility], MD Eduardo Shepherd, JOSÉ MIGUEL Álvarez, MD Carlos Cheung, MD Gorge Benton, MD Jana Davis, MD Dominique Amezquita, JOSÉ MIGUEL Webster Jimmy, MD Brain tumor [...] Discharge Disposition: Home Health 04/17/2024 Nurse Triage [facility] [address] [place] [address] Odette Bowman, Headache 04/16/2024 10:30 AM CDT Office Visit [employer] [employer] [address] [facility] [address] [place] [address] Pretty Thorne MD Consult 04/16/2024 Travel 03/28/2024 Transcribe Orders [facility] [address] [place] [phone] Padmini Mirza NP from Last 3 Months [...] 05/21/2024 11:15 AM CDT Office Visit [facility] [address] [facility] [address] [place] [address] Pretty Thorne MD [address] [facility] [address] [place] [address] Health Maintenance Due Date Last Done Comments [...] Completed 05/21/2012 Medical Devices Implanted Type Area Straight Tooth Gear Generator Operator Device Identifier Shelf Expiration Date Model / Serial / Lot Dura Neuro 3x3in Duragen Plusnon-Sut - [id number] Implanted:Qty: 1 on 04/19/2024 by Gerardo Her MD at [facility] Right: Cranium Integra EkinopsciChikka Shiloh 01/24/2027 DP-1033 / / [id number] Screw Neuro 4mm Matrixneuro Slf Drill Titnm - [id number] Implanted:Qty: 12 on 04/19/2024 by Gerardo Her MD at [facility] Right: Cranium J And J Depuy CMF [id number] 4.01 / / [place] Cover Neuro 17mm Synthes Low Pro Titnm - [id number] Implanted:Qty: 3 on 04/19/2024 by Gerardo Her MD at [facility] Right: Cranium J And J Depuy CMF [...] HBSAG Nonreactive Nonreactive 05/01/2024 3:35 PM CDT [facility] Blood BLOOD SPECIMEN / Unknown Venipuncture / Unknown 05/01/2024 2:39 PM CDT 05/01/2024 2:46 PM CDT Mary Cotton TRANSPORTATION DISPATCHER SEND OUTS Performing Organization Address [facility]/ZIP Co de Phone Number [facility] [address] [place] [address], * ANTI HBC (05/01/2024 2:39 PM CDT) ANTI HBC Non-React michael Non-React michael 05/01/2024 3:35 PM CDT [facility] Comment:Anti-HBc Antibodies not detected. Does not exclude the possibility of exposure to or infection with HBV. Levels of Anti-HBc may be below the cut-off in early infection. Blood BLOOD SPECIMEN / Unknown Venipuncture / Unknown 05/01/2024 2:39 PM CDT 05/01/2024 2:46 PM CDT Mary Cotton TRANSPORTATION DISPATCHER SEND OUTS Performing Organization Address [facility] Co de Phone Number [facility] [address] [place] [address], * (ABNORMAL) COMP METABOLIC PANEL (05/01/2024 2:39 PM CDT) SODIUM 138 136 - 145 mmol/L 05/01/2024 4:01 PM CDT [facility] POTASSIUM 5.2(H) 3.5 - 5.1 mmol/L 05/01/2024 4:01 PM CDT [facility] CHLORIDE 103 98 - 107 mmol/L 05/01/2024 4:01 PM CDT [facility] CO2,TOTAL 23 22 - 29 mmol/L 05/01/2024 4:01 PM CDT [facility] ANION GAP 12 5 - 18 05/01/2024 4:01 PM CDT [facility] GLUCOSE 114(H) 70 - 99 mg/dL 05/01/2024 4:01 PM CDT [facility] CALCIUM 9.4 8.6 - 10.0 mg/dL 05/01/2024 4:01 PM [facility] BUN 21(H) 6 - 20 mg/dL 05/01/2024 4:01 PM [facility] CREATININE 0.95 0.70 - 1.20 mg/dL 05/01/2024 4:01 PM [facility] BUN/CREAT RATIO 22(H) 10 - 20 4:01 PM [facility] eGFR >90 >90 mL/min/1.7 3m2 05/01/2024 4:01 PM [facility] Comment:As of 2022, eG FR is calculated by the CKD-EPI creatinine equation without race adjustment. ??eGFR can be influenced by muscle mass, exercise, and diet. ??The reported eGFR is an estimation only and is only applicable if the renal function is stable. ALBUMIN 3.8(L) 4.0 - 4.9 g/dL 05/01/2024 4:01 PM [facility] PROTEIN,TOTAL 6.2 6.0 - 8.0 g/dL 05/01/2024 4:01 PM [facility] BILIRUBIN,TOTAL 0.4 0.0 - 1.2 mg/dL 05/01/2024 4:01 PM [facility] ALK PHOSPHATASE 75 40 - 129 IU/L 05/01/2024 4:01 PM [facility] ALT (SGPT) 102(H) 10 - 50 IU/L 05/01/2024 4:01 PM [facility] AST (SGOT) 29 10 - 50 IU/L 05/01/2024 4:01 PM [facility] Blood BLOOD SPECIMEN / Unknown Venipuncture / Unknown 05/01/2024 2:39 PM CDT 05/01/2024 2:46 PM CDT Mary TAFOYA CHEMISTRY Performing Organization Address City/[facility]/ZIP Co de Phone Number [facility] [address] [place] [address], * Sodium AM (04/29/2024 7:57 AM CDT) Only the most recent of37 resultswithin the time period is included. SODIUM 139 136 - 145 mmol/L 04/29/2024 8:53 AM CDT [facility] Blood BLOOD SPECIMEN / Unknown Venipuncture / Unknown 04/29/2024 7:57 AM CDT 04/29/2024 8:31 AM CDT Ronny Mendez MD CHEMISTRY Performing Organization Address [facility] Co de Phone Number [facility] [address] [place] [address], [place] * PLATELET COUNT (04/28/2024 10:43 AM CDT) PLATELET COUNT 214 140 - 440 thou/cu mm 04/28/2024 11:17 AM CDT [facility] MPV 8.8 6.5 - 11.0 fL 04/28/2024 11:17 AM CDT [facility] Blood BLOOD SPECIMEN / Unknown Butterfly / Unknown 04/28/2024 10:43 AM CDT 04/28/2024 11:08 AM CDT Narrative [facility] - 04/28/2024 11:17 AM CDT With am labs while on heparin or ??LMWH per hospital policy Bia Bates MD HEMATOLOGY Performing Organization Address City/[facility]/ZIP Co de Phone Number [facility] [address] [place] [address], * (ABNORMAL) HEPATIC FUNCTION PANEL (04/25/2024 3:51 PM CDT) Only the most recent of3 resultswithin the time period is included. ALBUMIN 3.0(L) 4.0 - 4.9 g/dL 04/25/2024 5:09 PM CDT [facility] PROTEIN,TOTAL 5.4(L) 6.0 - 8.0 g/dL 04/25/2024 5:09 PM CDT [facility] BILIRUBIN,TOTAL 0.2 0.0 - 1.2 mg/dL 04/25/2024 5:09 PM CDT [facility] BILIRUBIN,DIRECT <0.2 0.0 - 0.3 mg/dL 04/25/2024 5:09 PM CDT [facility] BILIRUBIN,INDIRE CT 04/25/2024 5:09 PM CDT [facility] Comment:Unable to calculate, Direct Bili <0.2 ALK PHOSPHATASE 82 40 - 129 IU/L 04/25/2024 5:09 PM CDT [facility] ALT (SGPT) 51(H) 10 - 50 IU/L 04/25/2024 5:09 PM CDT [facility] AST (SGOT) 42 10 - 50 IU/L 04/25/2024 5:09 PM CDT [facility] Blood BLOOD SPECIMEN / Unknown Venipuncture / Unknown 04/25/2024 3:51 PM CDT 04/25/2024 4:19 PM CDT Melinda Cha MD CHEMISTRY [facility] [address] [place] [address], * XR VIDEO SWALLOW AND TREATMENT W [...] 18 seconds [facility] [employer] [facility] Radiology Dept. Yazmin Lofton [employer]IL G[employer] PIPE TESTER FLUOROSCOPY * Potassium FOR ADD ON (04/25/2024 12:37 PM CDT) Only the most recent of4 resultswithin the time period is included. POTASSIUM 4.2 3.5 - 5.1 mmol/L 04/25/2024 1:17 PM CDT [facility]ITAL[facility]ar[facility] Blood BLOOD SPECIMEN / Unknown Butterfly / Unknown 04/25/2024 12:37 PM CDT 04/25/2024 12:44 PM CDT Leonardo Fox [facility] CHEMISTRY [facility] [employer] [facility] [address] [place] [address], * (ABNORMAL) Creatinine FOR ADD ON (04/25/2024 12:37 PM CDT) Only the most recent of4 resultswithin the time period is included. eGFR >90 >90 mL/min/1.7 3m2 04/25/2024 1:17 PM CDT [facility]ITAL[facility] Comment:As of 2022, eG FR is calculated by the CKD-EPI creatinine equation without race adjustment. ??eGFR can be influenced by muscle mass, exercise, and diet. ??The reported eGFR is an estimation only and is only applicable if the renal function is stable. CREATININE 0.57(L) 0.70 - 1.20 mg/dL 04/25/2024 1:17 PM CDT [facility]ITALNar[facility] TechnologiesOH[facility] Blood BLOOD SPECIMEN / Unknown Butterfly / Unknown 04/25/2024 12:37 PM CDT 04/25/2024 12:44 PM CDT Leonardo VALDEZ CHEMISTRY [facility] [address] [place] [address], * (ABNORMAL) CBC WITH AUTO DIFFERENTIAL (04/25/2024 5:29 AM CDT) Only the most recent of3 resultswithin the time period is included. [facility] WHITE BLOOD COUNT 5.7 4.5 - 11.0 thou/cu mm 04/25/2024 6:15 AM CDT [facility] RED BLOOD COUNT 3.24(L) 4.30 - 5.90 mil/cu mm 04/25/2024 6:15 AM CDT [facility] HEMOGLOBIN 10.6(L) 13.5 - 17.5 g/dL 04/25/2024 6:15 AM CDT [facility] HEMATOCRIT 31.7(L) 37.0 - 53.0 % 04/25/2024 6:15 AM CDT [facility] MCV 98 80 - 100 fL 04/25/2024 6:15 AM CDT [facility] MCH 32.7 26.0 - 34.0 pg 04/25/2024 6:15 AM CDT [facility] MCHC 33.4 32.0 - 36.0 g/dL 04/25/2024 6:15 AM CDT [facility] RDW 12.2 11.5 - 15.5 % 04/25/2024 6:15 AM CDT [facility] PLATELET COUNT 117(L) 140 - 440 thou/cu mm 04/25/2024 6:15 AM CDT [facility] MPV 8.8 6.5 - 11.0 fL 04/25/2024 6:15 AM CDT [facility] NRBC 0.0 % 04/25/2024 6:15 AM CDT [facility] ABS NRBC 0.0 thou /cu mm 04/25/2024 6:15 AM CDT [facility] % NEUT 87.4 % 04/25/2024 6:15 AM CDT [facility] % LYMPH 6.0 % 04/25/2024 6:15 AM CDT [facility] % MONO 5.4 % 04/25/2024 6:15 AM CDT [facility] % EOS 0.0 % 04/25/2024 6:15 AM CDT [facility] % BASO 0.0 % 04/25/2024 6:15 AM CDT [facility] % IMMATURE GRAN (METAS,MYELOS,TX OS) 1.2 % 04/25/2024 6:15 AM CDT [facility] ABSOLUTE NEUTROPHILS 5.0 1.7 - 7.0 thou/cu mm 04/25/2024 6:15 AM CDT [facility] ABSOLUTE LYMPHOCYTES 0.3(L) 0.9 - 2.9 thou/cu mm 04/25/2024 6:15 AM CDT [facility] ABSOLUTE MONOCYTES 0.3 <0.9 thou/cu mm 04/25/2024 6:15 AM CDT [facility] ABSOLUTE EOSINOPHILS 0.0 <0.5 thou/cu mm 04/25/2024 6:15 AM T [facility] ABSOLUTE BASOPHILS 0.0 <0.3 thou/cu mm 04/25/2024 6:15 AM T [facility] ABSOLUTE IMMATURE GRANULOCYTES(MET ,MYELOS,PROS) 0.1 <0.3 thou/cu mm 04/25/2024 6:15 AM T [facility] Blood BLOOD SPECIMEN / Unknown Venipuncture / Unknown 04/25/2024 5:29 AM CDT 04/25/2024 5:49 AM CDT Leonardo Owenrafia [facility] HEMATOLOGY Performing Organization Address [facility] Co de Phone Number [facility] [address] [place] [address], * Magnesium AM (04/25/2024 5:29 AM CDT) Only the most recent of3 resultswithin the time period is included. MAGNESIUM 1.9 1.6 - 2.6 mg/dL 04/25/2024 6:48 AM CDT [facility] Blood BLOOD SPECIMEN / Unknown Venipuncture / Unknown 04/25/2024 5:29 AM CDT 04/25/2024 5:50 AM CDT Leonardo Cervantesranjit Fox [facility] CHEMISTRY Performing Organization Address [facility] de Phone Number [facility] [address] [place] [address], * (ABNORMAL) BASIC METABOLIC PANEL (04/25/2024 5:29 AM CDT) Only the most recent of4 resultswithin the time period is included. SODIUM 134(L) 136 - 145 mmol/L 04/25/2024 6:38 AM CDT [facility] POTASSIUM 3.8 3.5 - 5.1 mmol/L 04/25/2024 6:38 AM CDT [facility] CHLORIDE 102 98 - 107 mmol/L 04/25/2024 6:38 AM CDT [facility] CO2,TOTAL 23 22 - 29 mmol/L 04/25/2024 6:38 AM CDT [facility] ANION GAP 9 5 - 18 04/25/2024 6:38 AM CDT [facility] GLUCOSE 112(H) 70 - 99 mg/dL 04/25/2024 6:38 AM CDT [facility] CALCIUM 8.0(L) 8.6 - 10.0 mg/dL 04/25/2024 6:38 AM CDT [facility] BUN 20 6 - 20 mg/dL 04/25/2024 6:38 AM CDT [facility] CREATININE 0.57(L) 0.70 - 1.20 mg/dL 04/25/2024 6:38 AM CDT [facility] BUN/CREAT RATIO 35(H) 10 - 20 6:38 AM CDT [facility] eGFR >90 >90 mL/min/1.7 3m2 04/25/2024 6:38 AM CDT [facility] Comment:As of 2022, eG FR is calculated by the CKD-EPI creatinine equation without race adjustment. ??eGFR can be influenced by muscle mass, exercise, and diet. ??The reported eGFR is an estimation only and is only applicable if the renal function is stable. Blood BLOOD SPECIMEN / Unknown Venipuncture / Unknown 04/25/2024 5:29 AM CDT 04/25/2024 5:50 AM CDT Leonardo Fox [facility] CHEMISTRY [facility] [address] [place] [address], * (ABNORMAL) URINALYSIS MICROSCOPIC (04/25/2024 1:54 AM CDT) RBC 11-25(A) 0-2, None Seen /HPF 04/25/2024 2:30 AM CDT [facility] WBC 3-5 0-2, 3-5, None Seen /HPF 04/25/2024 2:30 AM CDT [facility] BACTERIA None Seen None Seen, Rare, Few Bacteria/ HPF 04/25/2024 2:30 AM CDT [facility] EPITHELIAL CELLS None Seen None Seen, Few Epi/HPF 04/25/2024 2:30 AM CDT [facility] HYALINE CASTS 0-2 0-2, 3-5 /LPF 04/25/2024 2:30 AM CDT [facility] Urine URINE SPECIMEN / Unknown Non-Blood / Unknown 04/25/2024 1:54 AM CDT 04/25/2024 2:08 AM CDT Melinda Cha MD URINE Performing Organization Address [facility] Co de Phone Number [facility] [address] [place] [phone], [place] * URINE CULTURE (04/25/2024 1:54 AM CDT) CULTURE No growth (<1,000 CFU/mL) 04/26/2024 8:42 AM CDT [facility] Urine URINE SPECIMEN / Unknown Non-Blood / Unknown 04/25/2024 1:54 AM CDT 04/25/2024 2:08 AM CDT Sanford Nelson MD MICROBIOLOGY Performing Organization Address [facility] Co de Phone Number [facility] [address] [place] [address], [place] * (ABNORMAL) Urinalysis TODAY (04/25/2024 1:54 AM CDT) COLOR Yellow Yellow Color 04/25/2024 2:30 AM CDT [facility] CLARITY Clear Clear Clarity 04/25/2024 2:30 AM CDT [facility] SPECIFIC GRAVITY,URINE 1.015 1.010, 1.015, 1.020, 1.025 04/25/2024 2:30 AM CDT [facility] PH,URINE 6.0 6.0, 7.0, 8.0, 5.5, 6.5, 7.5, 8.5 04/25/2024 2:30 AM CDT [facility] UROBILINOGEN, QUALITATIVE Normal Normal EU/dl 04/25/2024 2:30 AM CDT [facility] PROTEIN, URINE Negative Negative mg/dL 04/25/2024 2:30 AM CDT [facility] GLUCOSE, URINE Negative Negative mg/dL 04/25/2024 2:30 AM CDT [facility] KETONES,URINE Negative Negative mg/dL 04/25/2024 2:30 AM CDT [facility] BILIRUBIN,URI NE Negative Negative 04/25/2024 2:30 AM CDT [facility] OCCULT BLOOD,URINE Moderate(A) Negative 04/25/2024 2:30 AM CDT [facility] NITRITE Negative Negative 04/25/2024 2:30 AM CDT [facility] LEUKOCYTE ESTERASE Small(A) Negative 04/25/2024 2:30 AM CDT [facility] Urine URINE SPECIMEN / Unknown Non-Blood / Unknown 04/25/2024 1:54 AM CDT 04/25/2024 2:08 AM CDT Melinda Cha MD URINE Performing Organization Address [facility]/ZIP Co de Phone Number [facility] [address] [place] [phone], [place] * VANCOMYCIN (04/24/2024 3:01 PM CDT) VANCOMYCIN 5.5 ug/mL 04/24/2024 3:43 PM CDT [facility] Comment:No Reference Range D efined. DATE OF LAST DOSE,RANDOM 04/24/2024 04/24/2024 3:43 PM CDT [facility] TIME OF LAST DOSE,RANDOM 3:31 AM 04/24/2024 3:43 PM CDT [facility] Blood BLOOD SPECIMEN / Unknown Venipuncture / Unknown 04/24/2024 3:01 PM CDT 04/24/2024 3:06 PM CDT Dominick Sales MD CHEMISTRY Performing Organization Address City/[facility]/ZIP Co de Phone Number [facility] [address] [place] [address], [place] * XR CHEST 1 VIEW PORTABLE (04/24/2024 2:10 PM CDT) Only the most recent of2 resultswithin the time period is included. Anatomical Region Laterality Modality HEART, THORAX, CHEST Digital Rad iography 04/24/2024 3:06 PM CDT Impressions 04/24/2024 3:06 PM CDT 1. ??No focal lung infiltrate. Dictated by Uday Keane MD @ Apr 24 2024 ??3:06PM (Electronically Signed) [email or web address] Narrative 04/24/2024 3:06 PM CDT For Patients: [...] @ Apr 24 2024 3:06PM (Electronically Signed) [email or web address] Melinda Cha MD GENERAL IMAGING * 12 Lead EKG - SENIOR CENTER DIRECTOR (04/24/2024 12:47 PM CDT) Only the most [...] NOW QTc 417 ms BEYOND NOW P [place] 38 degrees BEYOND NOW R [place] 1 degrees BEYOND NOW T [place] 4 degrees BEYOND NOW 04/24/2024 12:4 7 PM CDT 04/24/2024 6:09 PM CDT Rodrigo Caldwell RN EKG ORD BEYOND NOW [place], [place] * (ABNORMAL) ARTERIAL BLOOD GAS (04/24/2024 11:55 AM CDT) PH, ARTERIAL 7.47(H) 7.35 - 7.45 04/24/2024 12:13 PM CDT [facility] PCO2, ARTERIAL 34(L) 35 - 48 mmHg 04/24/2024 12:13 PM CDT [facility] PO2, ARTERIAL 94 83 - 108 mmHg 04/24/2024 12:13 PM CDT [facility] HCO3, ARTERIAL 25 21 - 28 mmol/L 04/24/2024 12:13 PM CDT [facility] BASE EXCESS, ARTERIAL 1.5 -2.0 - 3.0 04/24/2024 12:13 PM CDT [facility] O2 SATURATION, ARTERIAL 100(H) 94 - 98 % 04/24/2024 12:13 PM CDT [facility] INSPIRED O2 30 04/24/2024 12:13 PM CDT [facility] Comment:Unit of Measure: Lit ers (L) if <=20; Percent (%) if >20 PATIENT TEMPERATURE 37.0 Degrees C 04/24/2024 12:13 PM CDT [facility] Blood ARTERIAL BLOOD SPECIMEN / Unknown Non-Lab Venipuncture / Unknown 04/24/2024 11:55 AM CDT 04/24/2024 12:08 PM CDT Leonardo Cervantesranjit Lexierafia [facility] CHEMISTRY Performing Organization Address [facility] Co de Phone Number [facility] [address] [place] [address], * Lactate STAT (venous) (04/24/2024 11:47 AM CDT) Only the most recent of6 resultswithin the time period is included. LACTATE,VENOUS 0.7 0.5 - 2.0 mmol/L 04/24/2024 12:33 PM CDT [facility] Blood BLOOD SPECIMEN / Unknown Venipuncture / Unknown 04/24/2024 11:47 AM CDT 04/24/2024 12:00 PM CDT Leonardo Rogelio Fox [facility] CHEMISTRY Performing Organization Address [facility] de Phone Number [facility] [address] [place] [address], * BLOOD CULTURE (04/24/2024 10:22 AM CDT) Only the most recent of4 resultswithin the time period is included. Pathologist [facility] CULTURE No Growth. 04/29/2024 12:36 PM CDT [facility] Blood BLOOD SPECIMEN / Unknown Venipuncture / Unknown 04/24/2024 10:22 AM CDT 04/24/2024 10:36 AM CDT Bia Bates MD MICROBIOLOGY Performing Organization Address [facility] Co de Phone Number [facility] [address] [place] [address], * (ABNORMAL) CBC (04/24/2024 7:44 AM CDT) Only the most recent of5 resultswithin the time period is included. WHITE BLOOD COUNT 13.0(H) 4.5 - 11.0 thou/cu mm 04/24/2024 7:58 AM CDT [facility] RED BLOOD COUNT 4.01(L) 4.30 - 5.90 mil/cu mm 04/24/2024 7:58 AM CDT [facility] HEMOGLOBIN 13.6 13.5 - 17.5 g/dL 04/24/2024 7:58 AM CDT [facility] HEMATOCRIT 38.0 37.0 - 53.0 % 04/24/2024 7:58 AM CDT [facility] MCV 95 80 - 100 fL 04/24/2024 7:58 AM CDT [facility] MCH 33.9 26.0 - 34.0 pg 04/24/2024 7:58 AM CDT [facility] MCHC 35.8 32.0 - 36.0 g/dL 04/24/2024 7:58 AM CDT [facility] RDW 12.1 11.5 - 15.5 % 04/24/2024 7:58 AM CDT [facility] PLATELET COUNT 160 140 - 440 thou/cu mm 04/24/2024 7:58 AM CDT [facility] MPV 8.7 6.5 - 11.0 fL 04/24/2024 7:58 AM CDT [facility] NRBC 0.2 % 04/24/2024 7:58 AM CDT [facility] ABS NRBC 0.0 thou /cu mm 04/24/2024 7:58 AM CDT [facility] Blood BLOOD SPECIMEN / Unknown Capillary / Unknown 04/24/2024 7:44 AM CDT 04/24/2024 7:51 AM CDT Bia Bates MD HEMATOLOGY [facility] [address] [place] [address], * CT head without IV contrast STAT [...] targets detected., Invalid 04/24/2024 7:24 PM CDT [facility]AL LAB[facility]AT[facility] Resistance Gene(s) None detected None detected 04/24/2024 7:24 PM CDT [facility] CTX-M (ESBL-resistance gene) NOT Detected 04/24/2024 7:24 PM CDT [facility]AL [facility] IMP (carbapenem-resistanc e gene) NOT Detected NOT Detected, N/A 04/24/2024 7:24 PM CDT [facility] KPC (carbapenem-resistanc e gene) NOT Detected NOT Detected, N/A 04/24/2024 7:24 PM CDT [facility] mcr-1 (colistin-resistance gene) N/A 04/24/2024 7:24 PM CDT [facility] mecA/C (methicillin-resistan ce gene) N/A 04/24/2024 7:24 PM CDT [facility] mecA/C and MREJ (methicillin-resistan ce gene) N/A 04/24/2024 7:24 PM CDT [facility] NDM (carbapenem-resistanc e gene) NOT Detected NOT Detected, N/A 04/24/2024 7:24 PM CDT [facility] OXA-48 like (carbapenem-resistanc e gene) NOT Detected NOT Detected, N/A 04/24/2024 7:24 PM CDT [facility] van A/B (vancomycin-resistanc e genes) N/A 04/24/2024 7:24 PM CDT [facility] VIM (carbapenem-resistanc e gene) NOT Detected NOT Detected, N/A 04/24/2024 7:24 PM CDT [facility] Enterococcus faecalis NOT Detected 04/24/2024 7:24 PM CDT [facility] Enterococcus faecium NOT Detected 04/24/2024 7:24 PM CDT [facility] Listeria monocytogenes NOT Detected 04/24/2024 7:24 PM CDT [facility] Staphylococcus NOT Detected 04/24/2024 7:24 PM CDT [facility] Staphlococcus aureus NOT Detected 04/24/2024 7:24 PM CDT [facility] Staphylococcus epidermidis NOT Detected 04/24/2024 7:24 PM CDT [facility] Staphylococcus lugdunensis NOT Detected 04/24/2024 7:24 PM CDT [facility] Streptococcus NOT Detected 04/24/2024 7:24 PM CDT [facility] Streptococcus agalactiae (Group B) NOT Detected 04/24/2024 7:24 PM CDT [facility] Streptococcus pneumoniae NOT Detected 04/24/2024 7:24 PM CDT [facility] Streptococcus pyogenes (Group A) NOT Detected 04/24/2024 7:24 PM CDT [facility] Acinetobacter calcoaceticus-micheal ii complex NOT Detected 04/24/2024 7:24 PM CDT [facility]- ENTRAL [facility] Enterobacteriaceae Detected 2023 7:24 PM CDT [facility]- EN[facility]AL [facility] Enterobacter cloacae complex NOT Detected 04/24/2024 7:24 PM CDT [facility] Escherichia coli NOT Detected 04/24/2024 7:24 PM CDT [facility] Klebsiella oxytoca NOT Detected 04/24/2024 7:24 PM CDT [facility]- EN[facility]AL [facility] Klebsiella pneumoniae group NOT Detected 04/24/2024 7:24 PM CDT [facility] Proteus NOT Detected 04/24/2024 7:24 PM CDT [facility] Serratia marcescens NOT Detected 04/24/2024 7:24 PM CDT [facility]- [facility] Haemophilus influenzae NOT Detected 04/24/2024 7:24 PM CDT [facility]- [facility] Neisseria meningitidis NOT Detected 04/24/2024 7:24 PM CDT [facility]- [facility] Pseudomonas aeruginosa NOT Detected 04/24/2024 7:24 PM CDT [facility] Nina albicans NOT Detected 04/24/2024 7:24 PM CDT [facility] Nina glabrata NOT Detected 04/24/2024 7:24 PM CDT [facility] Nina krusei NOT Detected 04/24/2024 7:24 PM CDT [facility] Nina parapsilosis NOT Detected 04/24/2024 7:24 PM CDT [facility] Nina tropicalis NOT Detected 04/24/2024 7:24 PM CDT [facility] Bacteroides fragilis group NOT Detected 04/24/2024 7:24 PM CDT [facility] Klebsiella aerogenes NOT Detected 04/24/2024 7:24 PM CDT [facility] Salmonella NOT Detected 04/24/2024 7:24 PM CDT [facility] Stenotrophomonas maltophilia NOT Detected 04/24/2024 7:24 PM CDT [facility] EN[facility] LAB[facility]ATORY Nina auris NOT Detected 04/24/2024 7:24 PM CDT [facility] Cryptococcus neoformans/gattii NOT Detected 04/24/2024 7:24 PM CDT [facility] Blood BLOOD SPECIMEN / Unknown Venipuncture / Unknown 04/24/2024 1:00 AM CDT 04/24/2024 1:07 AM CDT Dominick Sales MD MICROBIOLOGY Performing Organization Address City/[facility]/ZIP Co de Phone Number [facility] [address] [place] [address], * (ABNORMAL) GLUCOSE METER (04/21/2024 12:39 PM CDT) Only the most recent of13 resultswithin the time period is included. GLUCOSE METER 116(H) 65 - 100 mg/dL 04/21/2024 12:41 PM CDT [facility] Blood BLOOD SPECIMEN / Unknown 04/21/2024 12:39 PM CDT 04/21/2024 12:41 PM CDT Bia Bates MD CHEMISTRY Performing Organization Address [facility]/ZIP Co de Phone Number [facility] [address] [place] [address], * SCAN-CARDIAC STRIP (04/20/2024 9:59 AM CDT) Scanner OTHER * PHOSPHORUS (04/20/2024 5:15 AM CDT) PHOSPHORUS 3.3 2.5 - 4.5 mg/dL 04/20/2024 6:09 AM CDT [facility] Blood BLOOD SPECIMEN / Unknown Venipuncture / Unknown 04/20/2024 5:15 AM CDT 04/20/2024 5:33 AM CDT Quique Gonzalez MD CHEMISTRY Performing Organization Address City/[facility]/ZIP Co de Phone Number [facility] [address] [place] [address], [place] * EXTRA TUBE LIGHT GREEN (04/19/2024 11:53 AM CDT) Blood BLOOD SPECIMEN / Unknown Non-Lab Venipuncture / Unknown 04/19/2024 11:53 AM CDT 04/19/2024 12:14 PM CDT Quique Gonzalez MD LABORATORY Performing Organization Address [facility] Co de Phone Number [facility] [address] [place] [address], [place] * MR HEAD BRAIN INTRAOPERATIVE WWO (04/19/2024 [...] Gerardo Her MD LABORATORY Performing Organization Address [facility] de Phone Number [facility] [address] [address], * FOCUS (04/19/2024 9:39 AM CDT) Tissue TISSUE SPECIMEN / Unknown 04/19/2024 9:39 AM CDT 04/24/2024 8:20 AM CDT Gerardo Her MD LABORATORY Performing Organization Address [facility] de Phone Number [facility] [address] [place] [address], * [facility] TUBE PR1, [facility] INSTRUMENT DISP [...] * CK TOTAL (04/17/2024 3:31 AM CDT) [facility] CK,TOTAL 64 39 - 308 IU/L 04/17/2024 5:02 AM CDT [facility] Blood BLOOD SPECIMEN / Unknown Non-Lab Venipuncture / Unknown 04/17/2024 3:31 AM CDT 04/17/2024 3:39 AM CDT Johnson Echevarria MD [facility]STR[facility] [address] [place] [address], * SCAN-CARDIAC STRIP (04/17/2024 12:00 AM CDT) Narrative 04/17/2024 12:00 AM CDT Ordered by an unspecified provider. Other Clinical Staff OTHER * (ABNORMAL) LIPID PANEL W REFLEX MEASURED LDL (02/11/2014 8:12 AM CDT) [facility] CHOLESTEROL,TOTA L 257(H) 100 - 199 mg/dL [facility] TRIGLYCERIDES 514(H) <150 mg/dL [facility] HDL CHOLESTEROL 54 >40 mg/dL [facility] CHOL/HDL RATIO 4.76(H) <4.50 [facility] NON-HDL CHOLESTEROL 203 Undefined mg/dL [facility] LDL CHOLESTEROL ?? Invalid LDL when Trig >400 reflexed to measured LDL. [facility] PATIENT STATUS Fasting [facility] Blood specimen (specimen) BLOOD SPECIMEN / Unknown 02/11/2014 8:12 AM CDT 02/11/2014 8:06 AM CDT Anali Bailey MD CHEMISTRY [facility] [place]IP [address] [place] [id number] from Last 3 Months or Most Recently Relevant to Health Maintenance Additional Health Concerns Infection Onset Date Last Indicated MRSA Comment:Order Contact Precaution Nares surveillance cultures needed to clear patient if <12 months since positive culture. If >12 months since positive culture, precautions can be discontinued if patient has no MRSA risk factors. 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 Healthcare Directive 04/25/2024 INVALID , MISSING PAGE, 04/25/2024 * Full Code (Latest Code Status on File) Date Activated Date Inactivated Comments 04/17/2024 8:30 AM 04/29/2024 4:53 PM Question Answer Comments Code Status Discussion: Reviewed Preferences * Full Code Date Activated Date Inactivated Comments 12/22/2016 11:17 PM 12/24/2016 8:25 PM Question Answer Comments Code Status Discussion: Per Existing Order 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
== END 2024-05-08 16:57 | disposition home or self-care (01) ==
LOC: MRI 16:57
PROVIDERS: PCP Family Medicine; Visit Provider Radiology Radiation Oncology
DX: C71.9 Malignant neoplasm of brain, unspecified (principal)
CPT/HCPCS: 70553; A9575

== ENCOUNTER 2024-08-14 12:13 | Inpatient (IN) | payer OTHER, SELFPAY ==
[2024-08-14] VITALS (26 sets, daily range): BP systolic 126–154; BP diastolic 72–88; PULSE 74–96; RESP 16–20; TEMP 36.9–37.7; O2SAT 90–97; BMI 40.4; BMI 37.0
--- NOTE | 2024-08-14 12:42 | CRLHL7_ITS ---
For Patients: As a result of the Century Cures Act, medical imaging exams and procedure reports are released immediately into your electronic medical record. You may view this report before your referring provider. If you have questions, please contact your health care provider. Indication: glio, left arm swelling, redness, pain Technique: Real-time longitudinal and transverse sonographic grayscale imaging with and without compression, as well as color and duplex Doppler imaging before and after augmentation, was obtained of the deep system of the left upper extremity, including the internal jugular, subclavian, axillary, and brachial veins. The basilic and cephalic veins were also evaluated. Comparison: None. Findings: Internal jugular vein: No evidence of thrombus. Subclavian vein: No evidence of thrombus. Axillary vein: No evidence of thrombus. Brachial vein: No evidence of thrombus. Cephalic vein: Patent. Basilic vein: Patent. Impression: No ultrasound evidence of deep venous thrombosis. Dictated by Juan Salas MD @ 08/14/2024 1:56:39 PM (Electronically Signed)
--- NOTE | 2024-08-14 12:47 | ED_ITS ---
HPI - General Adult General Date Seen: 08/14/24 Chief complaint: Extremity Pain/Injury, Upper Stated complaint: LT arm swelling, joint pain, weakness Time Seen by Provider: 08/14/24 12:38 Source: patient, RN notes reviewed and old records reviewed Mode of arrival: ambulatory Limitations: no limitations History of Present Illness HPI narrative: Patient is a 49-year-old male who I saw earlier this year with a brain mass, subsequently diagnosed with glioblastoma. Undergoing chemotherapy through [facility]. For the past several days he has noted pain and increasing swelling in the left arm associated with some redness. He says he has been feeling a little fluids but has not had a fever that he knows of. Has had some chills. Not aware of any history of neutropenia, says he had blood drawn today. Maybe has felt a little short of breath, no pleuritic chest pain. He has a right lower leg amputation, no complaints of swelling or pain in the left. No known history of DVT or PE. Related Data Home Medications ?Medication ?Instructions ?Recorded ?Confirmed ibuprofen 200 mg tablet (Advil) 600 mg PO Q6H PRN 04/15/24 08/14/24 dexamethasone 4 mg tablet 2 mg PO BID 05/06/24 08/14/24 Previous Rx's ?Medication ?Instructions ?Recorded clotrimazole-betamethasone 1 1 applic topical BID #45 grams 12/04/23 %-0.05 % topical cream gabapentin 300 mg capsule 900 - 1,200 mg (3 - 4 x 300 mg) PO 04/05/24 TID #900 caps oxycodone 5 mg tablet 5 mg PO Q6H PRN headache #60 tabs 04/15/24 losartan 100 mg tablet 100 mg PO QDAY #90 tabs 05/06/24 fluoxetine 40 mg capsule 40 mg PO QDAY #90 caps 05/21/24 naltrexone 50 mg tablet 50 mg PO QDAY #90 tabs 05/24/24 sildenafil (pulm.hypertension) 20 See Rx Instructions PO QDAY PRN 05/31/24 mg tablet sexual activity #30 tabs Allergies Allergy/AdvReac Type Severity Reaction Status Date / Time No Known Drug Allergies Allergy Verified 08/14/24 11:47 Review of Systems Status of ROS: Reports: 10 or more systems reviewed and unremarkable except as noted in History and below PFSH PFSH Surgical History S/P craniotomy ?Z98.890 - Other specified postprocedural states (ICD-10) Status post above-knee amputation of right lower extremity ?Z89.611 - Acquired absence of right leg above knee (ICD-10) History of oral surgery (05/21/12) ?Z98.890 - Other specified postprocedural states (ICD-10) Social History What is your current living situation?: I presently have a place to live Problems where you live: no known problems In the past 12 months, utilities in danger of being shut off: no In past 12 months, lack of transportation kept you from medical appts, meetings, work, or getting things needed for daily living: no In the past 12 mos, have been you worried that your food would run out before you had money to buy more?: never true In the past 12 mos, the food you bought just didn't last and you didn't have money to buy more?: never true Smoking Status: Never smoker Non-prescribed substance use: denies use How often does anyone, including family, friends and others, physically hurt you : never How often does anyone, including family, friends and others, insult or talk down to you: never How often does anyone, including family, friends and others, threaten you with harm: never How often does anyone, including family, friends and others, scream or curse at you: never Little interest or pleasure in doing things: not at all Feeling down, depressed, or hopeless: not at all Exam Narrative: Exam Narrative: Vital signs reviewed. In general, an alert, nontoxic man. He looks uncomfortable. Head: Normocephalic, atraumatic. Neck: Supple. Heart: Regular rate and rhythm. Lungs: Clear. Extremities: He has diffuse swelling of the left upper extremity although it looks most predominant around the elbow and into the forearm and hand. Radial pulses 2+. He has tenderness over the olecranon, there is some fluctuance here although it is not more significantly erythematous in this area. The right upper extremity is normal in appearance. Skin: Warm dry, well perfused, erythema in the left upper extremity as noted. He has too numerous to count minor abrasion type wounds on his extremities which he says are related to his new puppy, he says with the chemotherapy nothing is healing very fast. Const: Vital Signs, click to edit/add: Vital Signs - 24 hr 08/14/24 12:17 08/14/24 12:52 08/14/24 12:57 Temperature 99.9 F H Pulse Rate 86 Pulse Rate [Left P ulse Oximeter] 95 Respiratory Rate 18 Blood Pressure Blood Pressure [Ri ght Upper Arm] 154/80 H Pulse Oximetry 93 95 92 Oxygen Delivery Me thod Room Air 08/14/24 13:00 08/14/24 13:48 08/14/24 14:00 Temperature Pulse Rate 96 80 82 Pulse Rate [Left P ulse Oximeter] Respiratory Rate Blood Pressure Blood Pressure [Ri ght Upper Arm] Pulse Oximetry 90 94 93 Oxygen Delivery Me thod 08/14/24 14:15 08/14/24 14:16 08/14/24 14:22 Temperature Pulse Rate 81 84 84 Pulse Rate [Left P ulse Oximeter] Respiratory Rate Blood Pressure 128/78 131/74 Blood Pressure [Ri ght Upper Arm] Pulse Oximetry 93 95 95 Oxygen Delivery Me thod 08/14/24 14:23 08/14/24 14:30 08/14/24 14:33 Temperature Pulse Rate 85 83 81 Pulse Rate [Left P ulse Oximeter] Respiratory Rate Blood Pressure 126/80 Blood Pressure [Ri ght Upper Arm] Pulse Oximetry 95 94 95 Oxygen Delivery Me thod 08/14/24 14:42 08/14/24 14:45 08/14/24 14:52 Temperature Pulse Rate 81 87 81 Pulse Rate [Left P ulse Oximeter] Respiratory Rate Blood Pressure 126/84 132/80 Blood Pressure [Ri ght Upper Arm] Pulse Oximetry 95 95 95 Oxygen Delivery Me thod 08/14/24 15:00 08/14/24 15:02 08/14/24 15:02 Temperature Pulse Rate 83 86 86 Pulse Rate [Left P ulse Oximeter] Respiratory Rate Blood Pressure 131/72 131/72 Blood Pressure [Ri ght Upper Arm] Pulse Oximetry 93 93 93 Oxygen Delivery Me thod 08/14/24 15:02 08/14/24 15:12 09/18/24 15:22 Temperature Pulse Rate 86 Pulse Rate [Left P ulse Oximeter] Respiratory Rate Blood Pressure 131/72 136/76 139/76 Blood Pressure [Ri ght Upper Arm] Pulse Oximetry 93 Oxygen Delivery Me thod 08/14/24 15:22 08/14/24 15:33 08/14/24 15:43 Temperature Pulse Rate Pulse Rate [Left P ulse Oximeter] Respiratory Rate Blood Pressure 139/76 136/77 139/77 Blood Pressure [Ri ght Upper Arm] Pulse Oximetry Oxygen Delivery Me thod 08/14/24 15:48 08/14/24 15:52 Temperature Pulse Rate 82 86 Pulse Rate [Left P ulse Oximeter] Respiratory Rate Blood Pressure 129/78 Blood Pressure [Ri ght Upper Arm] Pulse Oximetry 96 97 Oxygen Delivery Me thod Documenting provider has reviewed patient's vital signs: yes Course Course ED Course: Labs that were drawn earlier today were reviewed. His white blood cell count is 7.1, ANC of 6000.. Metabolic panel was normal. I have added on coags and a CRP. Would certainly be suspicious of DVT in the upper extremity given his cancer diagnosis and appearance of the arm. Cellulitis related to any one of the wounds on his arm is possible as would be an olecranon bursitis with surrounding cellulitis. He is not tachycardic here, O2 sats are 93%, borderline fever temperature 99.9?. Patient had a left upper extremity ultrasound read as negative for DVT by Radiology. Formal read as follows:Patient: JOSE ROMERO Facility: [facility] Site . Site : 1975 Study: US-Extremity Left UEV-08/14/2024 1:53:54 PM Ordering Physician: Pilar Salter Final Report: Indication: glio, left arm swelling, redness, pain Technique: Real-time longitudinal and transverse sonographic grayscale imaging with and without compression, as well as color and duplex Doppler imaging before and after augmentation, was obtained of the deep system of the left upper extremity, including the internal jugular, subclavian, axillary, and brachial veins. The basilic and cephalic veins were also evaluated. Comparison: None. Findings: Internal jugular vein: No evidence of thrombus. Subclavian vein: No evidence of thrombus. Axillary vein: No evidence of thrombus. Brachial vein: No evidence of thrombus. Cephalic vein: Patent. Basilic vein: Patent. Impression: No ultrasound evidence of deep venous thrombosis. Dictated by Juan Salas MD @ 08/14/2024 1:56:39 PM Given that the arm is negative for DVT, I would say that this is a cellulitis. He has significant erythema around the elbow and fluctuance over the olecranon bursa, I am highly suspicious of a septic olecranon bursa was surrounding cellulitis. I did speak with Orthopedics, they evaluated the patient as well and agree with aspiration prior to starting antibiotics. This was accomplished by actually, orthopedic PA. She said he did not tolerate the procedure well and she was not able to pull out all of the pus, she did pull out about 5 mL and this is sent for culture and Gram stain. In the meantime I have ordered vancomycin. I did talk with him about possibly doing a little sedation and trying to really empty that olecranon bursa of pus, he says he does not think he can tolerate that right now but will reconsider tomorrow. He had an additional 5 mg of oral oxycodone and 0.5 mg of Dilaudid IV for pain. He was hemodynamically stable, he is agreeable with admission to the hospital for IV antibiotics and close observation. Vital Signs Vital signs: Initial Vital Signs Temperature 99.9 F H 08/14/24 12:17 Temperature Source Temporal Artery Scan 08/14/24 12:17 Pulse Rate 95 08/14/24 12:17 Respiratory Rate 18 08/14/24 12:17 Blood Pressure 154/80 H 08/14/24 12:17 Blood Pressure Mean 104 08/14/24 12:17 Blood Pressure Position Sitting 08/14/24 12:17 Pulse Oximetry 93 08/14/24 12:17 Oxygen Delivery Method Room Air 08/14/24 12:17 Vital Signs Temperature 99.9 F H 08/14/24 12:17 Pulse Rate 95 08/14/24 12:17 Respiratory Rate 18 08/14/24 12:17 Blood Pressure 154/80 H 08/14/24 12:17 Pulse Oximetry 93 08/14/24 12:17 Oxygen Delivery Method Room Air 08/14/24 12:17 Temperature 99.9 F H 08/14/24 12:17 Pulse Rate 86 08/14/24 15:52 Respiratory Rate 18 08/14/24 12:17 Blood Pressure 129/78 08/14/24 15:52 Pulse Oximetry 97 08/14/24 15:52 Oxygen Delivery Method Room Air 08/14/24 12:17 Medications Administered Medications: Generic Name Dose Route Start Last Admin Trade Name Freq PRN Reason Stop Dose Admin Vancomycin/PEG/NADA/Lysine/Water 2 gm in 400 mls @ 200 mls/hr 08/14/24 15:20 08/14/24 16:01 Vancomycin 2 Gm/400 Ml IVPB 08/14/24 17:19 200 mls/hr ONCE ONE Administration Protocol Discontinued Medications Generic Name Dose Route Start Last Admin Trade Name Freq PRN Reason Stop Dose Admin Hydromorphone HCl 0.5 mg 08/14/24 15:30 08/14/24 15:42 Hydromorphone 0.5 Mg/0.5 Ml Inj IVP 08/14/24 15:31 0.5 mg ONCE ONE Administration Morphine Sulfate 4 mg 08/14/24 12:45 08/14/24 14:22 Morphine 4 Mg/Ml Inj IVP 08/14/24 12:46 4 mg ONCE ONE Administration Oxycodone HCl 5 mg 08/14/24 14:37 08/14/24 15:03 Oxycodone 5 Mg Tablet PO 08/14/24 14:38 5 mg ONCE ONE Administration Medical Decision Making Lab Data Labs: Lab Results 08/14/24 08/14/24 08/14/24 Range/Units 11:03 13:03 14:00 INR 0.91 (0.91-1.10) APTT 29 (23-33) Seconds Lactate 1.3 (0.5-1.9) mmol/L C-Reactive Protein 16.1 H (0.5-1.0) mg/dL Discharge Plan Discharge Clinical Impression: Septic olecranon bursitis of left elbow, Cellulitis Prescriptions: No Action ibuprofen [Advil] 200 mg tablet 600 mg PO Q6H PRN oxycodone 5 mg tablet 5 mg PO Q6H PRN (Reason: headache) Qty: 60 0RF dexamethasone 4 mg tablet 2 mg PO BID losartan 100 mg tablet 100 mg PO QDAY Qty: 90 3RF clotrimazole-betamethasone 1-0.05 % cream 1 applic topical BID Qty: 45 2RF gabapentin 300 mg capsule 900 - 1,200 mg PO TID Qty: 900 1RF Rx Instructions: 900mg (3 capsules) morning and midday. 1200mg (4 capsules) HS fluoxetine 40 mg capsule 40 mg PO QDAY Qty: 90 1RF naltrexone 50 mg tablet 50 mg PO QDAY Qty: 90 3RF sildenafil (pulm.hypertension) 20 mg tablet See Rx Instructions PO QDAY PRN (Reason: sexual activity) Qty: 30 6RF Rx Instructions: 1-5 tablets, orally every day PRN; administer doses at least 4-6 hours apart Follow Up/Referrals: Rodrigo Hughes MD [Primary Care Provider] -
[2024-08-14 13:30] LABS: INR 0.91 (0.91-1.10); Prothrombin Time 12.8 Seconds
[2024-08-14 13:31] LABS: Partial Thromboplastin Time* 29 Seconds (23-33)
[2024-08-14 13:40] LABS: C Reactive Protein* 16.1 mg/dL (0.5-1.0)
[2024-08-14 14:07] LABS: Lactate* 1.3 mmol/L (0.5-1.9)
--- OUTSIDE RECORDS SUMMARY | 2024-08-14 14:20 | XMS_ITS | Clinical Summary ---
Author Organization [facility] Address [address] [place] [address] Care Team Providers Care Line Service Attendant Name Role Phone Elsewhere, Pcp Primary Care Provider Unavailabl e Source Comments Patient records contain information from all sites at [facility]. For routine questions regarding patient records, call [phone] during business hours, M-F 8:00 AM - 5:00 PM Central Time. Record requests for emergency care only can be directed to [phone] at any time.[facility] Allergies No known active allergies Medications Medication Sig Dispensed Refills Start Date End Date Status gabapentin (NEURONTIN) 300 mg capsule Take 900 mg by mouth. 900 mg in am and midday and 1200 mg at bedtime 08/13/2018 Active loratadine-pseudoep hedrine (CLARITIN-D 24-hour) 10-240 mg per 24 hr tablet Take 1 tablet by mouth daily. Active FLUoxetine (PROzac) 40 mg capsule Take 40 mg by mouth daily. 3 08/21/2019 Active ibuprofen (ADVIL,MOTRIN) 200 mg tablet Take 1 tablet (200 mg total) by mouth every 8 (eight) hours as needed for moderate pain or score 4-6 of 10. 30 tablet 1 10/18/2019 Active mupirocin (BACTROBAN) 2 % ointment Apply 1 [...] 05/08/2024 oxyCODONE (ROXICODONE) 5 mg immediate release tabletIndications:A cute Pain Take 1 tablet (5 mg total) by mouth every 4 (four) hours as needed for pain (Take if pain is not controlled with Tylenol alone.) for up to 15 doses Indication: acute pain. 15 tablet 09/11/2021 Active Additional Information Patient not taking.Reported on 05/08/2024 chlorhexidine (PERIDEX) 0.12 % mouthwash RINSE MOUTH WITH 15 ML FOR 30 SECONDS AM AND PM AFTER TOOTHBRUSHING. EXPECTORATE AFTER RINSING. DO NOT SWALLOW. 04/19/2022 Active miscellaneous medical supply [facility] CPAP machine for home use at pressure: [...] months, Frequency of use: Daily 08/11/2020 Active sildenafil (REVATIO) 20 mg tablet TAKE [...] 2 (two) times a day. 04/12/2024 Active LORazepam (Ativan) 1 mg tablet Take 1 tablet (1 mg total) by mouth daily. Take 30-45 minutes prior to radiation 30 tablet 05/23/2024 Active melatonin 3 mg tablet Take 6 mg by mouth at bedtime. 04/29/2024 Active ondansetron (Zofran) 8 mg tablet Take 8 mg by mouth every 8 (eight) hours as needed for vomiting or nausea. 05/14/2024 Active losartan (Cozaar) 100 mg tablet Take 1 tablet by mouth daily. 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 Discharge Disposition: Home or Self Care 07/02/2024 Documentation Department of Radiation Oncology in [address] [address] Genesis Aguilar M.D. 07/01/2024 9:43 AM CDT - 07/01/2024 11:59 PM CDT Hospital Encounter Department of Radiation Oncology in [address] [address] Genesis Aguilar M.D. Discharge Disposition: Home or Self Care 06/28/2024 9:48 AM CDT - 06/28/2024 11:59 PM CDT Hospital Encounter Department of Radiation Oncology in [address] [address] Genesis Aguilar M.D. Discharge Disposition: Home or Self Care 06/27/2024 9:28 AM CDT - 06/27/2024 11:59 PM CDT Hospital Encounter Department of Radiation Oncology in [address] [address] Genesis Aguilar M.D. Discharge Disposition: Home or Self Care 06/27/2024 Documentation Department of Oncology in [place], [place] [address] [place] [address] Amy Ward M.S.W., L.I.C.S.W. 06/26/2024 9:34 AM CDT - 06/26/2024 2:36 PM CDT Hospital Encounter Department of Radiation Oncology in [address] [address] Genesis Aguilar M.D. Malignant Neoplasm Of Brain (HCC) 06/26/2024 9:33 AM CDT Hospital Encounter Department of Radiation Oncology in [address] [address] Genesis Aguilar M.D. Discharge Disposition: Home or Self Care 06/25/2024 9:41 AM CDT - 06/25/2024 11:59 PM CDT Hospital Encounter Department of Radiation Oncology in [address] [address] Genesis Aguilar M.D. Discharge Disposition: Home or Self Care 06/24/2024 9:41 AM CDT - 06/24/2024 11:59 PM CDT Hospital Encounter Department of Radiation Oncology in [address] [address] Genesis Aguilar M.D. Discharge Disposition: Home or Self Care 06/21/2024 9:28 AM CDT - 06/21/2024 11:59 PM CDT Hospital Encounter Department of Radiation Oncology in [address] [address] Genesis Aguilar M.D. Discharge Disposition: Home or Self Care 06/20/2024 9:36 AM CDT - 06/20/2024 11:59 PM CDT Hospital Encounter Department of Radiation Oncology in [address] [address] Genesis Aguilar M.D. Discharge Disposition: Home or Self Care 06/19/2024 9:14 AM CDT - 06/19/2024 2:50 PM CDT Hospital Encounter Department of Radiation Oncology in [address] [address] Genesis Aguilar M.D. Malignant Neoplasm Of Brain (HCC) 06/19/2024 9:14 AM CDT - 06/19/2024 11:59 PM CDT Hospital Encounter Department of Radiation Oncology in [address] [address] Genesis Aguilar M.D. Discharge Disposition: Home or Self Care 06/18/2024 9:49 AM CDT - 06/18/2024 11:59 PM CDT Hospital Encounter Department of Radiation Oncology in [address] [address] Genesis Aguilar M.D. Discharge Disposition: Home or Self Care 06/17/2024 9:40 AM CDT - 06/17/2024 11:59 PM CDT Hospital Encounter Department of Radiation Oncology in [address] [address] Genesis Aguilar M.D. Discharge Disposition: Home or Self Care 06/14/2024 9:43 AM CDT - 06/14/2024 11:59 PM CDT Hospital Encounter Department of Radiation Oncology in [address] [address] Genesis Aguilra M.D. Discharge Disposition: Home or Self Care 06/13/2024 9:40 AM CDT - 06/13/2024 11:59 PM CDT Hospital Encounter Department of Radiation Oncology in [address] [address] Genesis Aguilar M.D. Discharge Disposition: Home or Self Care 06/12/2024 9:44 AM CDT - 06/12/2024 12:55 PM CDT Hospital Encounter Department of Radiation Oncology in [address] [address] Genesis Aguilar M.D. Malignant Neoplasm Of Brain (HCC) 06/12/2024 9:44 AM CDT - 06/12/2024 11:59 PM CDT Hospital Encounter Department of Radiation Oncology in [address] [address] Genesis Aguilar M.D. Discharge Disposition: Home or Self Care 06/11/2024 9:47 AM CDT - 06/11/2024 11:59 PM CDT Hospital Encounter Department of Radiation Oncology in [address] [address] Genesis Aguilar M.D. Discharge Disposition: Home or Self Care 06/11/2024 Clinical Communication Department of Oncology in [place] [address] [place] [address] Amy Ward, M.S.W., L.I.C.S.W. 06/10/2024 10:30 AM CDT - 06/10/2024 11:20 AM CDT Hospital Encounter Department of Radiation Oncology in [address] [address] Genesis Aguilar M.D. Grieman, Kari A, RJudyNJudy Malignant Neoplasm Of Brain (HCC) (Primary Dx) 06/07/2024 9:46 AM CDT - 06/07/2024 11:59 PM CDT Hospital Encounter Department of Radiation Oncology in [address] [address] Genesis Aguilar M.D. Discharge Disposition: Home or Self Care 06/06/2024 9:56 AM CDT - 06/06/2024 11:59 PM CDT Hospital Encounter Department of Radiation Oncology in [address] [address] Genesis Aguilar M.D. Discharge Disposition: Home or Self Care 06/05/2024 9:43 AM CDT - 06/05/2024 11:59 PM CDT Hospital Encounter Department of Radiation Oncology in [address] [address] Genesis Aguilar M.D. Discharge Disposition: Home or Self Care 06/04/2024 9:54 AM CDT - 06/04/2024 6:14 PM CDT Hospital Encounter Department of Radiation Oncology in [address] [address] Jeovanny Khalil M.D. Malignant Neoplasm Of Brain (HCC) 06/04/2024 9:53 AM CDT Hospital Encounter Department of Radiation Oncology in [address] [address] Genesis Aguilar M.D. Discharge Disposition: Home or Self Care 06/03/2024 10:00 AM CDT - 06/03/2024 11:59 PM CDT Hospital Encounter Department of Radiation Oncology in [address] [address] Genesis Aguilar M.D. Discharge Disposition: Home or Self Care 05/31/2024 10:13 AM CDT - 05/31/2024 11:59 PM CDT Hospital Encounter Department of Radiation Oncology in [address] [address] Genesis Aguilar M.D. Discharge Disposition: Home or Self Care 05/29/2024 9:58 AM CDT - 05/29/2024 11:26 AM CDT Hospital Encounter Department of Radiation Oncology in [address] [address] Genesis Aguilar M.D. Malignant Neoplasm Of Brain (HCC) 05/29/2024 9:58 AM CDT - 05/29/2024 11:59 PM CDT Hospital Encounter Department of Radiation Oncology in [address] [address] Genesis Aguilar M.D. Discharge Disposition: Home or Self Care 05/28/2024 9:33 AM CDT - 05/28/2024 11:59 PM CDT Hospital Encounter Department of Radiation Oncology in [address] [address] Genesis Aguilar M.D. Discharge Disposition: Home or Self Care 05/28/2024 8:50 AM CDT - 05/28/2024 9:32 AM CDT Hospital Encounter Department of Radiation Oncology in [address] [address] Mica Gonzalez M.D. Wacholz, Abigail M, M.S.W., L.I.C.S.W. Counseling Phase Of Life Problem (Primary Dx); Malignant Neoplasm Of Brain (HCC) Discharge Disposition: Home or Self Care 05/27/2024 9:45 AM CDT - 05/27/2024 11:59 PM CDT Hospital Encounter Department of Radiation Oncology in [address] [address] Genesis Aguilar M.D. Discharge Disposition: Home or Self Care 05/27/2024 9:30 AM CDT - 05/27/2024 9:44 AM CDT Hospital Encounter Department of Radiation Oncology in [address] [address] Genesis Aguilar M.D. Grieman, Kari A RJudyNJudy Malignant Neoplasm Of Brain (HCC) (Primary Dx) 05/24/2024 9:46 AM CDT - 05/24/2024 2:34 PM CDT Hospital Encounter Department of Radiation Oncology in [address] [address] Genesis Aguilar M.D. Grieman, Kari A R.NJudy Malignant Neoplasm Of Brain (HCC) Discharge Disposition: Home or Self Care 05/24/2024 9:46 AM CDT - 05/24/2024 11:59 PM CDT Hospital Encounter Department of Radiation Oncology in [address] [address] Genesis Aguilar M.D. Discharge Disposition: Home or Self Care 05/23/2024 11:04 AM CDT - 05/23/2024 2:35 PM CDT Hospital Encounter Department of Radiation Oncology in [address] [address] Genesis Aguilar M.D. Retterath, Chelsey A, R.N. Malignant Neoplasm Of Brain (HCC) (Primary Dx) 05/23/2024 9:51 AM CDT - 05/23/2024 11:03 AM CDT Hospital Encounter Department of Radiation Oncology in [address] [address] Genesis Aguilar M.D. Discharge Disposition: Home or Self Care 05/22/2024 9:53 AM CDT - 05/22/2024 11:59 PM CDT Hospital Encounter Department of Radiation Oncology in [address] [address] Genesis Aguilar M.D. Discharge Disposition: Home or Self Care 05/21/2024 2:35 PM CDT - 05/21/2024 4:59 PM CDT Hospital Encounter Department of Radiation Oncology in [address] [place] [address] Genesis Aguilar M.D. Malignant Neoplasm Of Brain (HCC) 05/21/2024 2:34 PM CDT Hospital Encounter Department of Radiation Oncology in [address] [address] Genesis Aguilar M.D. Discharge Disposition: Home or Self Care 05/20/2024 10:00 AM CDT - 05/20/2024 11:59 PM CDT Hospital Encounter Department of Radiation Oncology in [address] [address] Genesis Aguilar M.D. Discharge Disposition: Home or Self Care from Last 3 Months Immunizations Name Administration [...] declined 07/26/2021 How often do you attend nondenominational or jew serv ices? Patient declined 07/26/2021 Do you belong to any clubs o r organizations such as nondenominational groups, unions, fraternal or athletic groups, or [...] medical care, and heating? Patient declined 07/26/2021 [facility] Answer Date Recorded [...] Dental Answer Date Recorded Dental: Regular Dentist Unknown 07/26/20 Employment Answer Date Recorded Employment status Unemployed/not in e paid workforce and NOT seeking employment [...] Sign Reading Time Taken Comments Blood Pressure 125/70 06/26/2024 10:32 AM CDT Pulse 67 06/19/2024 9:56 AM CDT Temperature 36.6 ??C (97.9 ??F) 06/26/2024 10:32 AM C DT Respiratory Rate 18 10/08/2021 4:40 PM FLOOR MECHANIC Oxygen Saturation 96% 10/08/2021 4:40 PM FLOOR MECHANIC Inhaled Oxygen Concentration - - Weight 115 kg (254 lb 10.1 oz) 06/26/2024 10:32 AM CDT Height 177.8 cm (5' 10) 10/08/2021 3:55 PM FLOOR MECHANIC Body Mass Index 36.54 10/08/2021 3:55 PM FLOOR MECHANIC Plan of Treatment Health Maintenance Due Date Last Done Comments CT Colonography 1974 Cologuard 1974 Colonoscopy 1974 Colorectal Cancer Surveillance 1974 HIV Screening 1974 Lipid (Cholesterol) Screening 1974 COVID-19 Vaccine (#1) 1979 Pneumococcal vaccine (0-64 years) (1 of 2 - PCV) 1980 Hepatitis B Vaccines (1 of 3 - 19+ 3-dose series) 1993 Zoster Vaccines (1 of 2) 1993 Depression Screening (Annual PHQ-2) 11/27/2023 Influenza Vaccine (#1) 2024 11/16/2019, 2017 Creatinine Level (Kidney Function Test) 07/26/2025 07/26/2024, 05/01/2024, 04/25/2024, Additional history exists Potassium Level 07/26/2025 07/26/2024, 06/0 03/2024, 04/25/2024, Additional history exists Sodium Level 07/26/2025 07/26/2024, 06/0 03/2024, 04/29/2024, Additional history exists Fasting Glucose for Diabetes Screening 07/26/2027 07/26/2024, 05/01/2024, 04/25/2024, Additional history exists DTaP,Tdap,and Td Vaccines (3 - Td or Tdap) 08/18/2029 08/18/2019, 05/21/2012 HPV Vaccines Aged Out No longer eligi ble based on patient's age to complete this topic Medical Devices Implanted Type Area Real Estate Loan Officer Device Identifier Shelf Expiration Date Model / Serial / Lot Clp Apr [facility] - [id number] Implanted:Qty : 1 on 09/09/2021 by Sanford Mena M.D. at [facility] Hardware e.g. pins/screws/ rods Right: Leg Ethicon [id number] 05/26/2026 MCS20 / / [id number] Clp Apr [facility] - [id number] Implanted:Qty : 1 on 09/09/2021 by Sanford Mena M.D. at [facility] Hardware e.g. pins/screws/ rods Right: Leg Ethicon [id number] 05/26/2026 MSM20 / / [id number] Explanted Type Area Real Estate Loan Officer Device Identifier Shelf Expiration Date Model / Serial / Lot Cmnt Bn Hi Visc Pmma 40 - [id number] Implanted:Qty: 1 on 11/15/2019 by Maude Shah M.D. at [facility] Explanted:Qty: 1 on 12/03/2019 by Sanford Mena M.D. at [facility] Bone Cement Right: Femur [place] [id number] 6191-1-00 / Description:7 antibiotic juaquin ent beads and 1 antibiotic cement dowel removed from right femur/leg Procedures Procedure Name Priority Date/Time Associated Diagnosis Comments ARIA COURSE COMPLETE TREATMENT INFORMATION Routine 07/02/2024 10:08 AM CDT ARIA DAILY TREATMENT INFORMATION Routine 07/02/2024 10:08 AM CDT ARIA DAILY TREATMENT INFORMATION Routine 07/01/2024 9:58 AM CDT ARIA DAILY TREATMENT INFORMATION Routine 06/28/2024 10:10 AM CDT ARIA DAILY TREATMENT INFORMATION Routine 06/27/2024 10:04 AM CDT ARIA DAILY TREATMENT INFORMATION Routine 06/26/2024 10:06 AM CDT ARIA DAILY TREATMENT INFORMATION Routine 06/25/2024 10:05 AM CDT ARIA DAILY TREATMENT INFORMATION Routine 06/24/2024 10:06 AM CDT ARIA DAILY TREATMENT INFORMATION Routine 06/21/2024 10:12 AM CDT ARIA DAILY TREATMENT INFORMATION Routine 06/20/2024 10:01 AM CDT ARIA DAILY TREATMENT INFORMATION Routine 06/19/2024 9:28 AM CDT ARIA DAILY TREATMENT INFORMATION Routine 06/18/2024 10:12 AM CDT ARIA DAILY TREATMENT INFORMATION Routine 06/17/2024 9:59 AM CDT ARIA DAILY TREATMENT INFORMATION Routine 06/14/2024 10:12 AM CDT ARIA DAILY TREATMENT INFORMATION Routine 06/13/2024 9:51 AM CDT ARIA DAILY TREATMENT INFORMATION Routine 06/12/2024 10:02 AM CDT ARIA DAILY TREATMENT INFORMATION Routine 06/11/2024 10:06 AM CDT ARIA DAILY TREATMENT INFORMATION Routine 06/07/2024 10:14 AM CDT ARIA DAILY TREATMENT INFORMATION Routine 06/06/2024 10:07 AM CDT ARIA DAILY TREATMENT INFORMATION Routine 06/05/2024 10:10 AM CDT ARIA DAILY TREATMENT INFORMATION Routine 06/04/2024 10:09 AM CDT ARIA DAILY TREATMENT INFORMATION Routine 06/03/2024 10:23 AM CDT ARIA DAILY TREATMENT INFORMATION Routine 05/31/2024 10:24 AM CDT ARIA DAILY TREATMENT INFORMATION Routine 05/29/2024 10:20 AM CDT ARIA DAILY TREATMENT INFORMATION Routine 05/28/2024 10:08 AM CDT ARIA DAILY TREATMENT INFORMATION Routine 05/27/2024 10:29 AM CDT ARIA DAILY TREATMENT INFORMATION Routine 05/24/2024 10:26 AM CDT ARIA DAILY TREATMENT INFORMATION Routine 05/23/2024 10:53 AM CDT ARIA DAILY TREATMENT INFORMATION Routine 05/23/2024 10:04 AM CDT ARIA DAILY TREATMENT INFORMATION Routine 05/22/2024 10:47 AM CDT ARIA DAILY TREATMENT INFORMATION Routine 05/21/2024 3:00 PM CDT ARIA DAILY TREATMENT INFORMATION Routine 05/20/2024 10:29 AM CDT ARIA COURSE COMPLETE TREATMENT INFORMATION Routine 05/16/2024 8:58 AM CDT CREATININE WITH EGFR, S/P Routine 12/18/2019 9:40 PM FLOOR MECHANIC Infection Of Amputation Stump Right Lower Extremity (HCC) BASIC METABOLIC PANEL, S/P Routine 11/19/2019 7:46 AM FLOOR MECHANIC from Last 3 Months or Most Recently Relevant to Health Maintenance Results * Aria Course Complete Treatment Information (07/02/2024 10:08 AM CDT) Only the most recent of2 resultswithin the time period is included. Course ID 1xBrain GARSIA ARIA Course Start Date 4 08:57 CDT GARSIA ARIA Course End Date 4 10:16 CDT GARSIA ARIA First Treatment Date 4 10:26 CDT GARSIA ARIA Last Treatment Date 4 10:08 CDT GARSIA ARIA Treatment Elapsed Days 43 GARSIA ARIA Reference Point [id number] GARSIA ARIA Dosage Given to Date cGy 6000 GARSIA ARIA Plan ID [id number] GARSIA ARIA Fractions Treated to Date 30 GARSIA ARIA Planned Total Fractions 30 GARSIA ARIA Prescribed Dose Per Fraction 200 GARSIA ARIA Prescription Dose in cGy 6000 GARSIA ARIA Plan Primary Reference Point [id number] GARSIA ARIA 07/02/2024 10:0 8 AM CDT Provider Not In System RADIATION ONCOLOG Y ORDERABLES ADY EAST na * Aria Daily Treatment Information (07/02/2024 10:08 AM CDT) Only the most recent of31 resultswithin the time period is included. Course ID 1xBrain GARSIA ARIA Course Start Date 4 08:57 CDT GARSIA ARIA First Treatment Date 4 10:26 CDT GARSIA ARIA Last Treatment Date 4 10:08 CDT GARSIA ARIA Treatment Elapsed Days 43 GARSIA ARIA Reference Point [id number] GARSIA ARIA Dosage Given to Date cGy 6000 AGRSIA ARIA Session Dosage Given 200 GRASIA ARIA Plan ID [id number] GARSIA ARIA Fractions Treated to Date 30 GARSIA ARIA Planned Total Fractions 30 GARSIA ARIA Prescribed Dose Per Fraction 200 GARSIA ARIA Prescription Dose in cGy 6000 GARSIA ARIA Plan Primary Reference Point [id number] GARSIA ARIA 07/02/2024 10:0 8 AM CDT Provider Not In System RADIATION ONCOLOG Y ORDERABLES ADY hannon from Last 3 Months Advance Directives For more information, please contact: [phone] * Full Code (Latest Code Status on [...] Answer Comments Full Code: Discussed Care Teams Line Service Attendant Relationship Specialty Start Date End Date Elsewhere, Pcp PCP - General Family Medicine 09/09/21
--- OUTSIDE RECORDS SUMMARY | 2024-08-14 14:20 | XMS_ITS | Data Portability ---
Author Organization [place] [facility] Address [address] [facility] [address] [place] [address] Assessment No assessment recorded. Plan of Treatment Reminders Order Date Submit Date Provider Last Modified By Organization Details Last Modified Time Details Appointments ESTABLISH ED 10 2023 09:30A M Not available Not available Not available Lab None recorded. Referral None recorded. Procedures bladder scan (PROC) 2023 024 [email or web address] [facility], [address] [facility] [address], [address], [place], [address], 07/30/2024 14:14:58 Surgeries None recorded. Imaging None recorded. Medication Orders solifenac in 10 mg tablet 2023 024 [id number], [address] [place], [place], [phone], 07/30/2024 14:26:01 Patient TargetsNo targets recorded. Patient Instructions Encounter Date Encounter Id Patient Instructions Last Modified By Organization Details Last Modified Time 07/30/2024 [id number] will try solifenacin and rtc 6 weeks. [email or web address] Not available 07/30/2024 14:26:59 Reason for Referral None Reported. Results Created Date Observation Date Name Description Value Unit Range Abnormal Flag Note LastModifiedBy Organization Detail LastModifiedTime 07/30/20 24 07/30/2024 bladd er scan (PROC ) Volume (in mL) 16 ml Not Available [facility] [address], [place], [address], 07/22/2024 14:00:28 Result Notes None recorded. Problems Name Problem SNOMED Code Status Onset Date Resolution Date Notes Provider Name and Address Organization Details Recorded Time Urgent desire to urinate 09830209 Active 2023 Derrick Hodge MD [address] [place] [address],[address], [phone], [facility] 14:25:07 Incontinence 52799778 Active 2023 Derrick Hodge MD [address] [place] [address],[address], [address], [facility] 14:25:08 Problem Notes None recorded. Procedures Surgical History Date Name Laterality Status Provider Name and Address Organization Details Recorded Time Bladder Scan completed Derrick Hodge MD [address] [place] [address],[address] [place] [address], [phone], [facility] 07/30/2024 14:14:27 destruction of brain tumor completed Derrick Hodge MD [address] [place] [address],[address], [place], [address], [facility] 07/30/2024 14:11:23 Imaging Results None recorded. Procedure Notes None recorded. Medical Equipment None Reported. Allergies No known drug allergies Medications Name Sig Start Date Stop Date Status Note LastModified by Organization Details LastModified Time losartan 50 mg tablet TAKE 1 TABLET BY MOUTH EVERY DAY 07/30 completed Not Available Not Available Not Available celecoxib 200 mg capsule TAKE 1 CAPSULE BY MOUTH EVERY DAY 07/30 completed Not Available Not Available Not Available fluoxetine 40 mg capsule TAKE ONE CAPSULE BY MOUTH EVERY DAY active Not Available Not Available No t Available nystatin 100,000 unit/mL oral suspension SWISH AND SPIT 5ML 4 TIMES A DAY FOR 10 DAYS 07/30 completed Not Available Not Available Not Available doxycycline hyclate 100 mg capsule 07/30 completed Not Available Not Available Not Available levetiracet am 500 mg tablet TAKE 1 TABLET BY MOUTH TWICE DAILY active Not Available Not Available No t Available Nystop 100,000 unit/gram topical powder USE POWDER TOPICALLY TWICE DAILY AND NEEDED FOR 2 WEEKS 09/03 /2024 completed Not Available Not Available Not Available ondansetron HCl 8 mg tablet TAKE 1 TABLET BY MOUTH 30 MINUTES PRIOR TO CHEMOTHER APY AND EVERY 8 HOURS NEEDED FOR BREAKTHRO UGH NAUSEA active Not Available Not Available No t Available naltrexone 50 mg tablet TAKE 1 TABLET BY MOUTH EVERY DAY active Not Available Not Available No t Available temozolomid e 100 mg capsule TAKE 3 CAPSULES (300 MG) BY MOUTH ONCE DAILY WITH 1 OTHER TEMOZOLOM PAUL RX FOR 340 MG TOTAL FOR 5 DOSES. TAKE ON DAYS 1-5 OF EACH 28 DAY CYCL active Not Available Not Available No t Available famotidine 20 mg tablet active Not Available Not Available Not Available dexamethaso ne 1 mg tablet 07/30 completed Not Available Not Available Not Available doxycycline monohydrate 100 mg capsule TAKE ONE CAPSULE BY MOUTH TWICE DAILY FOR 10 DAYS 07/30 completed Not Available Not Available Not Available dexamethaso ne 2 mg tablet active Not Available Not Available Not Available dexamethaso ne 4 mg tablet TAKE 1 AND 1/2 TABLETS BY MOUTH EVERY 6 HOURS DIRECTED 07/30 completed Not Available Not Available Not Available clotrimazol e-betametha sone 1 %-0.05 % topical cream APPLY TOPICALLY TO THE AFFECTED AREA TWICE DAILY 07/30 completed Not Available Not Available Not Available gabapentin 300 mg capsule TAKE 3 CAPSULES BY MOUTH IN THE MORNING AND MIDDAY AND 4 CAPSULES AT BEDTIME active Not Available Not Available No t Available Drysol Dab-O-Matic 20 % topical solution 07/30 completed Not Available Not Available Not Available lorazepam 1 mg tablet TAKE 1T BY MOUTH DAILY. TAKE 30-45 MINUTES PRIOR TO RADIATION active Not Available Not Available No t Available levofloxaci n 750 mg tablet 07/30 completed Not Available Not Available Not Available temozolomid e 20 mg capsule TAKE 2 CAPSULES BY MOUTH ONCE DAILY WITH OTHER TEMOZOLOM PAUL RX FOR 340 MG TOTAL FOR 5 DOSES. TAKE ON DAYS 1-5 OF EACH 28 DAY CYCLE active Not Available Not Available No t Available losartan 100 mg tablet TAKE 1 TABLET BY MOUTH EVERY DAY active Not Available Not Available No t Available amoxicillin 875 mg-potassiu m clavulanate 125 mg tablet TAKE 1 TABLET BY MOUTH TWICE DAILY FOR 7 DAYS 07/30 completed Not Available Not Available Not Available oxycodone 5 mg tablet TAKE 1 TABLET BY MOUTH EVERY 6 HOURS NEEDED FOR HEADACHE 07/30 completed Not Available Not Available Not Available solifenacin 10 mg tablet TAKE 1 TABLET BY MOUTH EVERY DAY active Not Available Not Available No t Available sildenafil (pulmonary hypertensio n) 20 mg tablet TAKE 1-5 TABLETS ORALLY EVERYDAY NEEDED - DOSES AT LEAST 4-6 HOURS APART active Not Available Not Available No t Available chlorhexidi ne gluconate 0.12 % mouthwash SWISH 15ML FOR 30 SECONDS AND SPIT OUT TWICE DAILY 07/30 completed Not Available Not Available Not Available temozolomid e 180 mg capsule active Not Available Not Available Not Available Vitals Date Recorded Body height Body mass index (BMI) Body weight Provider Name and Address Organization Details Last Updated DateTime 07/30/2024 180.34 cm 32.8 kg/m2 121668.21 g Derrick Hodge MD [address] [place] [address],[address] [phone] [place] [address] Urology 07/30/2024 14:07:09 Social History Question Answer Notes LastModified by Organizat ion Details LastModified Time Tobacco Smoking Status Never Smoker Derrick Hodge MD [address] [place] [address],[address] [phone] 07/30/2024 14:10:43 What Is Your Level Of Alcohol Consumption? Occasional [email or web address] Information not available 07/30/2024 What Is Your Level Of Caffeine Consumption? Occasional [email or web address] Information not available 07/30/2024 What Was The Date Of Your Most Recent Tobacco Screening? 07/30/2024 [email or web address] Information not available 07/30/2024 Have You Ever Been Counseled For Unhealthy Alcohol Use? No [email or web address] Information not available 07/30/2024 Do You Use Any Illicit Or Recreational Drugs? No [email or web address] Information not available 07/30/2024 Sex: Unknown Functional Status None recorded. Mental Status None recorded. Family History Relationship Description Onset Age of this Age Resolved Age Notes LastModified by Organization Details LastModified Time Father Hernia repair [email or web address] Not available 07/30 14:10:16 Medical History Condition Response Other N High Blood Pressure Y Kidney Stones N Depression Y Lung Disease N GERD/Acid Reflux N Sexually Transmitted Infection N Cancer Y High Cholesterol N Diabetes N Bleeding Disorder N Heart Disease N Past Encounters Encounter ID Performer Location Encounter Start Date Encounter Closed Date Diagnosis/Indication Diagnosis SNOMED-CT Code Diagnosis ICD10 Code [id number] Derrick Hodge MD [facility] [address] [facility] [address] [place] [address] 07/30/2024 14:01:11 07/31/2024 10:57:56 Incontinence 04229587 R32 Urgent barbra maeve to urinate 81746552 R39.15 Health Concerns Section Related Observation LastModified by Organization Detai ls LastModified Time None Recorded Concern Status LastModified by Organization Details LastModified Time None Recorded Advance Directives Directive None Recorded Payers Encounter Date Sequence Insurance Name Policy Number Policy Acuna Covered Member ID Acuna Member ID Guarantor Name 07/30/2024 1 *SELF PAY* Br indio Tafoya Notes Date Note Type Note Provider Name and Address Organization Details Recorded Time 07/30/2024 text/html HPI Notes: seeing for voiding issues 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 was circed at . gained about 30# after the surgery due to steroids. unable to void for UA, bladder scan shows 16ml today. Derrick Hodge MD [address] [facility] [facility],[address], [place], [address], [facility] 07/30/2024 14:27:20
--- OUTSIDE RECORDS SUMMARY | 2024-08-14 14:20 | XMS_ITS | Data Portability ---
Author Organization [facility] - (IP) Address [address] [place] [address] Care Team Providers Care Lion Tamer Name Role Phone PANCHO VALENTE Primary Care Provider Assessment Encounter Date Assessment Date Assessment LastModified by Organization Details LastModified Time 04/16/2024 04/16/2024 Eleuterio Tafoya is a 49-year-old male, who presents to Neurosurgery Clinic for evaluation of a right temporal brain mass. He has had a 2-week history of severe headache and new onset of left arm tremor and his physical exam revealed left-sided drift and his tongue is to the left. Imaging revealed a large intra-axial right temporal lobe mass with both cystic and solid enhancing components. He was evaluated at [facility] [facility] and at that time, only complaints of minor headache and was to follow up with Neurosurgery outpatient. The patient was seen and discussed with Dr. Her today and the risks, benefits, alternatives and goals of surgery were discussed in detail with the patient and his family regarding a right temporal craniotomy for resection of brain tumor and the patient would like to proceed. We will plan to get him scheduled for surgery this or Monday. As the patient has ran out of dexamethasone and imaging reveals a cerebral edema, we will plan to prescribe 6 mg dexamethasone every 6 to be taken till surgery. Again, due to the patient's symptoms, quick progression, feel surgery is warranted and again we will plan to get him scheduled for this or Monday. Alarm signs and symptoms warranting urgent medical evaluation were discussed. All the patient's questions and concerns were answered to his and his family's satisfaction. They are in agreement with current plan. Should any questions or concerns arise, they will reach out. [email or web address] Not available 04/17/2024 09:33:25 05/03/2024 05/03/2024 Eleuterio Tafoya is a 49-year-old male, who presents to the [facility] ED with headaches and confusion. Workup revealed a large right temporal mass causing significant brain compression and midline shift. Given the size and location, surgical resection was recommended for decompression and diagnosis. The risks, benefits, and alternatives were discussed in detail with the patient and family. Written consent was obtained. The patient underwent a right craniotomy for removal of temporal mass on April 19, [address] Her. 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 His bisi were removed easily without issue today using an aseptic technique with iodine. The patient will have followup in approximately 2 weeks for postop evaluation and incision check. Did discuss that he should not ride ATV for 6 to 8 weeks as well as not submerge his incision until he is 6 weeks out from surgery and that he should take it easy and not do any strenuous activities. Alarm signs and symptoms warranting urgent medical evaluation were discussed. All the patient's questions and concerns were answered to his and his family's satisfaction and they are in agreement with the current plan. Should any questions or concerns arise they will reach out. [email or web address] Not available 05/04/2024 14:58:29 05/17/2024 05/17/2024 Eleuterio Tafoya is a 49-year-old male who had initially presented to the Neurosurgery Clinic with headache, left facial droop, and left-sided weakness and found to have a large right temporal mass with moderate cerebral edema. The patient ultimately underwent a right temporal craniotomy for tumor resection on April 19, 2024, by Dr. Her. Final pathology was consistent with a glioblastoma. The patient was last seen in the Neurosurgery Clinic for staple removal approximately 2 weeks ago, at which time he was doing well. He returns today for a wound check and overall states that he continues to recover well from surgery. He does note new headaches over the past few days, but he otherwise denies any other neurologic complaints and he is neurologically intact on exam. His incision today does appear nearly fully healed with the exception of 1 small area over the posterior aspect with a small amount of eschar, but there is no concern for infection or dehiscence. PLAN The patient will plan to continue to move forward with his care with the [facility]. He is scheduled to begin chemo and radiation on May 20, 2024. I discussed with Eleuterio and his family members that were present today the signs and symptoms that would prompt an urgent call to our office or a trip to the emergency department. We will now move forward with follow-up on an as-needed basis. Should he ever need to return to the Neurosurgery Clinic, we are happy to see him back. Eleuterio will contact our office with any questions or concerns in the future should they arise. [email or web address] Not available 05/18/2024 10:25:55 Plan of Treatment Reminders Order Date Submit Date Provider Last Modified By Organization Details Last Modified Time Details Appointments None record ed. Lab None record ed. Referral None record ed. Procedures None record ed. Surgeries None record ed. Imaging None record ed. Medication Orders None record ed. Patient TargetsNo targets recorded. Patient InstructionsNo instructions recorded. Reason for Referral None Reported. Results Created Date Observation Date Name Description Value Unit Range Abnormal Flag Note LastModifiedBy Organization Detail LastModifiedTime 04/12/20 24 04/11/2024 MRI, brain , w/wo contr ast No observ ation record ed. BARCODE Not Available 2023 14:10:51 04/12/20 24 04/11/2024 CT, head + brain , w/o contr ast No observ ation record ed. BARCODE Not Available 2023 14:10:51 Result Notes None recorded. Problems Name Problem SNOMED Code Status Onset Date Resolution Date Notes Provider Name and Address Organization Details Recorded Time Lesion of brain 670405490 Active 2023 ELIZABETH Aguirre - [facility] 4 09:33:35 Headache 01716082 Active 2023 ELIZABETH Aguirre - [facility] 4 09:34:08 Cerebral edema Active 2023 ELIZABETH Aguirre - [facility] 4 09:34:20 Glioblastoma multiforme of brain 996961243 Active 2023 ELIZABETH Aguirre - [facility] 09:49:44 Problem Notes None recorded. Procedures Surgical History None recorded. Imaging Results Imaging Date Name Status LastModified by Organiz ation Details LastModified Time 04/11/2024 MRI, brain, w/wo contrast completed BARCODE Information not available 04/12/2024 14:10:51 04/11/2024 CT, head + brain, w/o contrast completed BARCODE Information not available 04/12/2024 14:10:51 Procedure Notes None recorded. Medical Equipment None Reported. Medications Name Sig Start Date Stop Date Status Note LastModified by Organization Details LastModified Time losartan 50 mg tablet TAKE 1 TABLET BY MOUTH EVERY DAY active Not Available Not Available No t Available celecoxib 200 mg capsule active Not Available Not Available Not Available fluoxetine 40 mg capsule TAKE ONE CAPSULE BY MOUTH EVERY DAY active Not Available Not Available No t Available doxycycline hyclate 100 mg capsule active Not Available Not Available N ot Available levetiraceta m 500 mg tablet TAKE 1 TABLET BY MOUTH TWICE DAILY active Not Available Not Available No t Available Nystop 100,000 unit/gram topical powder USE POWDER TOPICALLY TWICE DAILY AND NEEDED FOR 2 WEEKS active Not Available Not Available No t Available ondansetron HCl 8 mg tablet TAKE 1 TABLET BY MOUTH 30 MINUTES PRIOR TO CHEMOTHERAP Y AND EVERY 8 HOURS NEEDED FOR BREAKTHROUG H NAUSEA active Not Available Not Available No t Available naltrexone 50 mg tablet TAKE 1 TABLET BY MOUTH EVERY DAY active Not Available Not Available No t Available metronidazol e 500 mg tablet TAKE 1 TABLET BY MOUTH EVERY 8 HOURS UNTIL ALL TAKEN active Not Available Not Available No t Available famotidine 20 mg tablet active Not Available Not Available Not Available doxycycline monohydrate 100 mg capsule TAKE ONE CAPSULE BY MOUTH TWICE DAILY FOR 10 DAYS active Not Available Not Available No t Available dexamethason e 2 mg tablet active Not Available Not Available Not Available dexamethason e 4 mg tablet TAKE 1 AND 1/2 TABLETS BY MOUTH EVERY 6 HOURS DIRECTED active Not Available Not Available No t Available clotrimazole -betamethaso ne 1 %-0.05 % topical cream APPLY TOPICALLY TO THE AFFECTED AREA TWICE DAILY active Not Available Not Available No t Available gabapentin 300 mg capsule TAKE 3 CAPSULES BY MOUTH IN THE MORNING AND MIDDAY AND 4 CAPSULES AT BEDTIME active Not Available Not Available No t Available Drysol Dab-O-Matic 20 % topical solution active Not Available Not Available Not Available levofloxacin 750 mg tablet active Not Available Not Available Not Available losartan 100 mg tablet TAKE 1 TABLET BY MOUTH EVERY DAY active Not Available Not Available No t Available amoxicillin 875 mg-potassium clavulanate 125 mg tablet TAKE 1 TABLET BY MOUTH TWICE DAILY FOR 7 DAYS active Not Available Not Available No t Available oxycodone 5 mg tablet TAKE 1 TABLET BY MOUTH EVERY 6 HOURS NEEDED FOR HEADACHE active Not Available Not Available No t Available sildenafil (pulmonary hypertension ) 20 mg tablet TAKE 1-5 TABLETS BY MOUTH EVERY DAY NEEDED FOR SEXUAL ACTIVITY - ADMINISTER DOSES AT LEAST 4-6 HOURS APART active Not Available Not Available Not Available chlorhexidin e gluconate 0.12 % mouthwash SWISH 15ML FOR 30 SECONDS AND SPIT OUT TWICE DAILY active Not Available Not Available Not Available temozolomide 180 mg capsule active Not Available Not Available Not Available Vitals None Recorded Social History None recorded. Functional Status None recorded. Mental Status None recorded. Family History Nothing Reported. Medical History No medical history recorded. Past Encounters Encounter ID Performer Location Encounter Start Date Encounter Closed Date Diagnosis/Indication Diagnosis SNOMED-CT Code Diagnosis ICD10 Code [id number] Lorene Bhaktavan [place] [facility] [id number] [place] [phone] 04/16/2024 12:31:39 04/16/2024 12:47:31 [id number] Lorene Posey [place] [facility] [id number] [place] [phone] 3 05/03/2024 13:35:49 05/03/2024 13:45:34 [id number] Lorene Bhaktavan [place] [facility] [id number] [place] [phone] 3 05/17/2024 13:30:08 05/17/2024 13:34:35 Health Concerns Section Related Observation LastModified by Organization Detai ls LastModified Time None Recorded Concern Status LastModified by Organization Details LastModified Time None Recorded Advance Directives Directive None Recorded Payers Encounter Date Sequence Insurance Name Policy Number Policy Acuna Covered Member ID Acuna Member ID Guarantor Name 04/16/2024 1 [facility] [id number] Eleuterio Garcia Strese [id number] Eleuterio Garcia Strese 05/03/2024 1 R [id number] Eleuterio Tafoya [id number] Eleuterio Tafoya 05/17/2024 1 [facility] [id number] Eleuterio Tafoya [id number] Eleuterio Tafoya Notes Date Note Type Note Provider Name and Address Organization Details Recorded Time 04/16/2024 text/html HPI Notes: Eleuterio Tafoya is a 49-year-old male, who presents to neurosurgery Clinic with his ex- and his parents for evaluation of brain lesion. He presented to [facility] on April 11, 2024 for evaluation of headaches and falls. He states that for the last several months, he felt like he had a sinus infection and was treated for this, but was found to not have a sinus infection. Additionally, he has had increased headaches for approximately 2 weeks and feels he weans and falls to the left if he were to standup. 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 In the ED, he was found to have a large right temporal cystic and solid enhancing mass. He denies any new numbness, tingling, shooting pains or weakness in the bilateral upper and lower extremities. Complaints of 8/10 headache, which bounces back and forth between his temples. Denies any new vision changes, nausea, vomiting. He does endorse that his grandfather had of stomach cancer. He was discharged from [facility] with Keppra 500 mg twice a day as well as dexamethasone 4 mg three times a day. He did going for a refill of his dexamethasone and the pharmacy would not refill this due to him finishing it so quick, so it is unclear whether the patient took too much dexamethasone or whether he dropped some. The patient's ex- did endorse that the patient does live alone and it is not known how he is taking the medication. When he presented today, he has severe headache, he is red in color and is unclear whether this could be from stopping the dexamethasone or taking too much leading to rebound headaches. Lorene paniagua PA - [facility] 04/17/2024 09:37:35 05/03/2024 text/html HPI Notes: Jose Enrique Tafoya is a 49-year-old male, who presents to Neurosurgery Clinic for staple removal. Recall, he presented to [facility] on April 11, 2024 for evaluation of headaches and falls, imaging revealed a large right temporal lobe mass with cystic/solid enhancing components and moderate cerebral edema and he is referred to Neurosurgery Clinic, as the patient reported that he felt well at that time. He presented to Neurosurgery Clinic with significant headache, left facial droop, left drift with left upper and lower extremity weakness. He is prescribed dexamethasone and the patient politely declined, going to the ED for evaluation. He end up arriving at the ED later that night via ambulance due to worsening headache, gait, and agitation. He underwent right craniotomy for removal of temporal mass on April 19, [address] Her. 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 He has been seeing [facility] and he starts treatment soon. He denies any headaches or dizziness, nausea, vomiting, vision changes. Denies any numbness, tingling, shooting pains or weakness in the bilateral upper and lower extremities. He states that his incision did bleed a few days ago and he was unsure if it was from a scratch. Lorene Posey [place], [place] - [facility] 05/06/2024 09:50:27 05/17/2024 text/html HPI Notes: I had the pleasure of seeing Eleuterio Tafoya today in clinic for a postop appointment and wound check. Eleuterio is a 49-year-old male who initially presented to [facility] on April 11, 2024, for evaluation of headaches and falls. Imaging had revealed a large right temporal mass with cystic/solid enhancing components. The patient was subsequently referred to the Neurosurgery Clinic for evaluation. Upon presentation, he had significant headache, left facial droop, left drift, and left upper and lower extremity weakness. He was prescribed dexamethasone and unfortunately the patient declined to go to the emergency department. Unfortunately, due to worsening symptoms, the patient did ultimately present to [facility] and underwent a right craniotomy for removal of the temporal mass on April 19, 2024, by Dr. Her. Final pathology was consistent with a glioblastoma. He has been seeing the [facility] and is scheduled to begin treatment next week. He was last seen in the Neurosurgery Clinic approximately 2 weeks ago for staple removal appointment, at which time his incision is healing well. Currently, Eleuterio reports approximately a 3-day history of new headaches, which are located anteriorly over his forehead. He otherwise adamantly denies any nausea, vomiting, dizziness, changes to vision, speech, or new numbness or weakness to his extremities bilaterally. His family denies any increased confusion or fatigue that is notable. He denies any recent falls or other trauma and denies any seizure activity. He continues to take antiepileptic medication for seizure prevention. Lorene paniagua PA - [facility]. 05/20/2024 09:46:25
--- OUTSIDE RECORDS SUMMARY | 2024-08-14 14:20 | XMS_ITS | Continuity of Care Document ---
Author Organization [facility], [facility] Address [address] [place] [address] [address] [place] [address] Assessment No assessment recorded. Plan of Treatment Reminders Order Date Submit Date Provider Last Modified By Organization Details Last Modified Time Details Appointments ESTABLISH ED 10 2023 09:30A M Not available Not available Not available Lab None recorded. Referral None recorded. Procedures bladder scan (PROC) 2023 024 [email or web address] [facility], [address] [place] [address], [address], [place], [address], 07/30/2024 14:14:58 Surgeries None recorded. Imaging None recorded. Medication Orders solifenac in 10 mg tablet 2023 024 [id number] [address] [facility] [place], [place], [phone], 07/30/2024 14:26:01 Patient TargetsNo targets recorded. Patient Instructions Encounter Date Encounter Id Patient Instructions Last Modified By Organization Details Last Modified Time 07/30/2024 [id number] will try solifenacin and rtc 6 weeks. [email or web address] Not available 07/30/2024 14:26:59 Reason for Referral None Reported. Results Created Date Observation Date Name Description Value Unit Range Abnormal Flag Note LastModifiedBy Organization Detail LastModifiedTime 07/30/20 24 07/30/2024 bladd er scan (PROC ) Volume (in mL) 16 ml Not Available [address], [place], [address], 07/22/2024 14:00:28 Result Notes None recorded. Problems Name Problem SNOMED Code Status Onset Date Resolution Date Notes Provider Name and Address Organization Details Recorded Time Urgent desire to urinate 85397056 Active 2023 Derrick Hodge MD [address] [place] [address],[address], [phone], [facility] 14:25:07 Incontinence 44442638 Active 2023 Derrick Hodge MD [address] [place] [address],[address], [address], [facility] 14:25:08 Problem Notes None recorded. Procedures Surgical History Date Name Laterality Status Provider Name and Address Organization Details Recorded Time Bladder Scan completed Derrick Hodge MD [address] [place] [address],[address], [address], [facility] 07/30/2024 14:14:27 destruction of brain tumor completed Derrick Hodge MD [address] [place] [address],[address], [place], [address], [facility] 07/30/2024 14:11:23 Imaging Results None recorded. Procedure [...] TWICE DAILY AND NEEDED FOR 2 WEEKS 07/30 completed Not Available Not Available Not [...] Updated DateTime 07/30/2024 180.34 cm 32.8 kg/m2 912870.21 g Derrick Hodge MD [address] [place] [address],[address] [address] 07/30/2024 14:07:09 Social History Question Answer Notes LastModified by Organizat ion Details LastModified Time Tobacco Smoking Status Never Smoker Derrick Hodge MD [address] [place] [address],[address] [address] 07/30/2024 14:10:43 What Is Your Level Of Alcohol Consumption? Occasional [email or web address] Information not available 07/30/2024 What Is Your Level Of Caffeine Consumption? Occasional [email or web address] Information not available 07/30/2024 What Was The Date Of Your Most Recent Tobacco Screening? 07/30/2024 Information not available 07/30/2024 Have You Ever Been Counseled For Unhealthy Alcohol Use? No [email or web address] Information not available 07/30/2024 Do You Use Any Illicit Or Recreational Drugs? No [email or web address] Information not available 07/30/2024 Sex: Unknown Functional Status None recorded. Mental Status None recorded. Family History Relationship Description Onset Age of this Age Resolved Age Notes LastModified by Organization Details LastModified Time Father Hernia repair [email or web address] Not available 07/30 14:10:16 Medical History Condition Response Sexually Transmitted Infection N Diabetes N Other N Bleeding Disorder N High Blood Pressure Y Kidney Stones N High Cholesterol N GERD/Acid Reflux N Heart Disease N Cancer Y Depression Y Lung Disease N Past Encounters Encounter ID Performer Location Encounter Start Date Encounter Closed Date Diagnosis/Indication Diagnosis SNOMED-CT Code Diagnosis ICD10 Code [id number] Derrick Hodge MD [facility] [address] [facility] [address] [place] [address] 07/30/2024 14:01:11 07/31/2024 10:57:56 Incontinence 66349867 R32 Urgent barbra maeve to urinate 01835798 R39.15 Health Concerns Section Related Observation LastModified by Organization Detai ls LastModified Time None Recorded Concern Status LastModified by Organization Details LastModified Time None Recorded Payers Encounter Date Sequence Insurance [...] shows 16ml today. Derrick Hodge MD [address] [facility], [place], [address], [facility] 07/30/2024 14:27:20
--- OUTSIDE RECORDS SUMMARY | 2024-08-14 14:21 | XMS_ITS | Encounter Summary ---
Author Organization [facility] Address [address] [place] [address] Care Team Providers Care Floor Technician Name Role Phone Elsewhere, Pcp Primary Care Provider Unavailabl e Reason for Referral * Radiation Therapy (Routine) - Authorized Specialty Diagnoses / Procedures Referred By Misa dinero Referred To Contact Diagnoses Malignant Neoplasm Of Brain (HCC) Procedures Management Visit Genesis Aguilar M.D. [address] [place] [address] [facility] Region Referral ID Status Reason Start Date Expiration Date V isits Requested Visits Authorized [id number] Authorized 05/03/2024 05/03/2025 10 10 Reason for Visit * Radiation Therapy (Routine) - Authorized Specialty Diagnoses / Procedures Referred By Misa dinero Referred To Contact Diagnoses Malignant Neoplasm Of Brain (HCC) Procedures Management Visit Genesis Aguilar M.D. [address] [place] [address] [facility] Region Referral ID Status Reason Start Date Expiration Date V isits Requested Visits Authorized [id number] Authorized 05/03/2024 05/03/2025 10 10 Encounter Details Date Type Department Care Team (Latest Contact Info) Description 06/26/2024 9:34 AM CDT - 06/26/2024 2:36 PM CDT Hospital Encounter Department of Radiation Oncology in [place], [place] [address] [place] [phone] Genesis Aguilar M.D. [address] [place] [address] Malignant Neoplasm Of Brain (HCC) Social History [...] declined 07/26/2021 How often do you attend restorationist or taoism serv ices? Patient declined 07/26/2021 Do you belong to any clubs o r organizations such as restorationist groups, unions, fraternal or athletic groups, or [...] medical care, and heating? Patient declined 07/26/2021 [facility] - Occupational Stress [...] place to sleep or slept in a halfway (including now)? Patient refused 07/26/2021 Nutrition Answer [...] Pressure 125/70 06/26/2024 10:32 AM CDT Pulse - - Temperature 36.6 ??C (97.9 ??F) 06/26/2024 10:32 AM C DT Respiratory Rate - - Oxygen Saturation - - Inhaled Oxygen Concentration - - Weight 115 kg (254 lb 10.1 oz) 06/26/2024 10:32 AM CDT Height - - Body Mass Index 36.54 10/08/2021 3:55 PM ENVIRONMENTAL SCIENCE PROGRAM DIRECTOR documented in this encounter Medications at Time of Discharge Medication Sig Dispensed Refills Start Date End Date chlorhexidine (PERIDEX) 0.12 % mouthwash RINSE MOUTH [...] tablet Take 1 tablet by mouth daily. LORazepam (Ativan) 1 mg tablet Take 1 tablet (1 mg total) by mouth daily. Take 30-45 minutes prior to radiation 30 tablet 05/23/2024 losartan (Cozaar) 100 mg tablet Take 1 tablet by mouth daily. 05/08/2024 melatonin 3 mg tablet Take 6 mg by mouth at bedtime. 04/29/2024 miscellaneous medical supply [facility] CPAP machine for home use at pressure: [...] TIMES DAILY NEEDED 22 g 2 08/10/2022 ondansetron (Zofran) 8 mg tablet Take 8 mg by mouth every 8 (eight) hours as needed for vomiting or nausea. 05/14/2024 oxyCODONE (ROXICODONE) 5 mg immediate release tabletIndications:Acu te Pain Take 1 tablet (5 mg total) by mouth every 4 (four) hours as needed for pain (Take if pain is not controlled with Tylenol alone.) for up to 15 doses Indication: acute pain. 15 tablet 09/11/2021 sildenafil (REVATIO) 20 mg tablet TAKE 1 TO 5 TABLETS BY MOUTH DAILY NEEDED 04/04/2022 nystatin (Mycostatin) 100,000 unit/mL suspension Swish and spit 5 mL (500,000 Units total) 4 (four) times a day for 10 days. 200 mL 06/26/2024 07/06/2024 documented as of this encounter Progress Notes * Genesis Aguilar M.D. - 06/26/2024 10:30 AM CDT ATTESTATION FOR MANAGEMENT VISIT I saw and evaluated the patient and participated in the sargent portions of the service as noted below.I reviewed the documentation of Ms. Jessica Arevalo RN and agree with the findings and plan. The patient appears well on exam. We will continue with radiation as planned and we anticipate that he will complete treatments next Monday. He is continuing to taper his steroids. On exam, he has a whitish exudate on the roof of his mouth after removing his dentures. We anticipate that Eleuterio Tafoya will complete radiation treatment as planned without interruptions. The course of treatment was tolerated well. The patient experienced toxicities of grade 1 nausea and headache during radiation treatment. Follow-up will be with Aleksey and I will see him again as needed. Genesis Aguilar M.D., 06/26/2024 SUBJECTIVE REASON FOR VISIT Evaluation for side effects while receiving radiation treatment for 1. Malignant Neoplasm Of Brain (HCC) SUPERVISED BY: Dr. Aguilar HISTORY OF PRESENT ILLNESS Eleuterio Tafoya is a 49 y.o. 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 Patient is now undergoing radiation therapy concurrent with Temodar. Treatment Course: 1xBrain Plan ID Fractions Dose / Fraction (cGy) Dose Treated (cGy) Dose Planned (cGy) First Treatment Last Treatment Elapsed Days [id number] 05/20/2024 06/26/2024 37 Course Summary 05/20/2024 06/26/2024 37 The patient was seen and examined today with Dr. Aguialr. Patient reports that his intermittent headaches are being managed by Advil as needed. He is taking 6 mg of Dexamethasone daily. Patient denies fevers, chills, vomiting, vision or hearing changes. Nausea is quite minimal. Patient does take Ativan pre radiation treatments daily. Weight May 21, 2024: 113.6 kg May 24, 2024: 107.7 kg May 29, 2024: 109.8 kg June 04, 2024: 110 kg June 12, 2024: 114 kg June 19, 2024: 114 kg June 26, 2024: 115.5 kg PATIENT REPORTED SYMPTOM SCREEN FATIGUE (Scale: 0 = no fatigue; 10 = worst fatigue you can imagine): PAIN (Scale: 0 = no pain; 10 = worst pain you can imagine): OVERALL QUALITY OF LIFE (Scale: 0 = as bad as can be; 10 = as good as can be): OBJECTIVE BP 125/70 (BP Location: Right arm, Patient Position: Sitting, Cuff Size: Regular) Temp 36.6 ??C (Temporal) Wt 115 kg BMI 36.54 kg/m?? PHYSICAL EXAM General: Alert and oriented in no apparent distress. Skin: Right side of scalp brisk erythema toned. No dryness or desquamation noted. ENT: thrush appearing plaque noted to hard palate. ASSESSMENT / PLAN #1 Right temporal glioblastoma (ORTHOPEDIC SHOE FITTER who grade 4), IDH negative, MGMT and NGS, pending #2 Status post gross total resection on April 19, 2024 #3 Radiation therapy to right temporal surgical cavity with concurrent Temodar initiated on May 20, 2024; anticipated completion on July 02, 2024 Patient is tolerating treatment with anticipated side effects. I recommended that patient apply Aquaphor to treatment field area 3 times a day. Radiation related skin changes should start to heal in 2-3 weeks. Aquaphor use until skin changes have healed in the coming weeks. Thrush appearance noted to hard palate today. We have sent in prescription for Nystatin to patient's preferred pharmacy. will see patient in follow up on July 26, 2024. Dr. Aguilar follow up will be as needed only. Social Work continues to be involved in patient's care. We will see patient in weekly management visits. He will contact us with any questions or concerns. We will continue with radiation treatment as planned. Toxicities reviewed with Dr. Aguilar today. Signed by: Jessica Arevalo R.N. 06/26/2024 12:34 PM CDT documented in this encounter Plan of Treatment Scheduled Orders Name Type Priority Associated Diagnoses Orde r Schedule Management Visit Radiation Oncology Routine Malignant Neoplasm Of Brain (HCC) Once for 1 Occurrences starting 06/26/2024 until 06/26/2024 documented as of this encounter Visit Diagnoses Diagnosis Malignant Neoplasm Of Brain (HCC) documented in this encounter Additional Health Concerns Infection Onset Date Last Indicated Resolved Time Protective Environment 05/27/2024 05/27/202407/26 5:47 AM CDT documented as of this encounter Care Teams Floor Technician Relationship Specialty Start Date End Date Elsewhere, Pcp PCP - General Family Medicine 09/09/21 documented as of this encounter
--- OUTSIDE RECORDS SUMMARY | 2024-08-14 14:21 | XMS_ITS ---
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 Past Plans Radiation Treatments * Plan Last Treated On Elapsed Days Fractions Treated Prescribed Fraction Dose Prescribed Total Dose [id number] 07/02/2024 43 30 of 30 200 cGy 6,000 cGy Reference Point Last Treated On Elapsed Days Session Dose Total Dose [id number] 07/02/2024 43 200 cGy 6,000 cGy
--- OUTSIDE RECORDS SUMMARY | 2024-08-14 14:21 | XMS_ITS | Encounter Summary ---
Author Organization [facility] Address [address] [place] [address] Care Team Providers Care Saloon Keeper Name Role Phone Elsewhere, Pcp Primary Care Provider Unavailabl e Reason for Visit * Radiation Therapy (Routine) - Authorized Specialty Diagnoses / Procedures Referred By Misa dinero Referred To Contact Diagnoses Malignant Neoplasm Of Brain (HCC) Procedures Prior Auth Rad Tx [place] IMRT COMPLEX [place] GUIDANCE FOR LOC RAD TX [place] IMRT RADIOTHERAPY PLAN Genesis Aguilar M.D. [address] [place] [phone] [facility] Referral ID Status Reason Start Date Expiration Date V isits Requested Visits Authorized [id number] Authorized 05/15/2024 11/26/2024 30 30 Encounter Details Date Type Department Care Team (Latest Contact Info) Description 06/28/2024 9:48 AM CDT - 06/28/2024 11:59 PM CDT Hospital Encounter Department of Radiation Oncology in [place], [place] [address] [place] [phone] Genesis Aguilar M.D. [address] [place] [phone] Discharge Disposition: Home or Self Care Social History Tobacco Use Types Packs/Day Years [...] declined 07/26/2021 How often do you attend hindu or bahai serv ices? Patient declined 07/26/2021 Do you belong to any clubs o r organizations such as hindu groups, unions, fraternal or athletic groups, or [...] Average Number of Drinks Not on file Frequency of Binge Drinking Not on file 06/29 Overall Financial Resource Strain (CARDIA) Answe r Date Recorded How hard is it for you to pa y for the very basics like food, housing, medical care, and heating? Patient declined 07/26/2021 [facility] - Occupational Stress Questionnaire Answer Date [...] place to sleep or slept in a group home (including now)? Patient refused 07/26/2021 Nutrition Answer Date Recorded On average, how many serving s of fruits and vegetables do you eat per day (serving size is equal to 1 cup or approximately the size of a tennis ball)? 2-3 07/26/2021 Dental Answer Date Recorded Dental: Regular Dentist Unknown 07/26/20 24 Employment Answer Date Recorded Employment status Unemployed/not [...] mouth at bedtime. 04/29/2024 miscellaneous medical supply [facility] CPAP machine for home use at pressure: [...] 06/26/2024 07/06/2024 documented as of this encounter Plan of Treatment Not on file documented as of this encounter Visit Diagnoses Not on filedocumented in this encounter Additional Health Concerns Infection Onset Date Last Indicated Resolved Time Protective Environment 05/27/2024 05/27/202407/26 5:47 AM CDT documented as of this encounter Care Teams Saloon Keeper Relationship Specialty Start Date End Date Elsewhere, Pcp PCP - General Family Medicine 09/09/21 documented as of this encounter
--- OUTSIDE RECORDS SUMMARY | 2024-08-14 14:21 | XMS_ITS | Encounter Summary ---
Author Organization [facility] Address [address] [place] [address] Care Team Providers Care Account Support Associate Name Role Phone Elsewhere, Pcp Primary Care Provider Unavailabl e Reason for Visit * Radiation Therapy (Routine) - Authorized Specialty Diagnoses / Procedures Referred By Misa dinero Referred To Contact Diagnoses Malignant Neoplasm Of Brain (HCC) Procedures Prior Auth Rad Tx [place] IMRT COMPLEX [place] GUIDANCE FOR LOC RAD [place] IMRT RADIOTHERAPY PLAN Genesis Aguilar M.D. [address] [place] [phone] [facility] Referral ID Status Reason Start Date Expiration Date V isits Requested Visits Authorized [id number] Authorized 05/15/2024 11/26/2024 30 30 Encounter Details Date Type Department Care Team (Latest Contact Info) Description 06/25/2024 9:41 AM CDT - 06/25/2024 11:59 PM CDT Hospital Encounter Department of Radiation Oncology in [place], [place] [address] [place] [phone] Genesis Aguilar M.D. [address] [place] [phone] Discharge Disposition: Home or Self Care Social [...] How often do you attend pentecostalism or baptism serv ices? Patient declined 07/26/2021 Do you [...] medical care, and heating? Patient declined 07/26/2021 [facility] - Occupational Stress Questionnaire Answer Date [...] mouth 2 (two) times a day. 04/12/2024 loratadine-pseudoephed rine (CLARITIN-D 24-hour) 10-240 mg per 24 hr [...] mouth at bedtime. 04/29/2024 miscellaneous medical supply [facility] CPAP machine for home use at pressure: [...] 05/14/2024 oxyCODONE (ROXICODONE) 5 mg immediate release tabletIndications:Acut e Pain Take 1 tablet (5 mg total) by mouth every 4 (four) hours as needed for pain (Take if pain is not controlled with Tylenol alone.) for up to 15 doses Indication: acute pain. 15 tablet 09/11/2021 sildenafil (REVATIO) 20 mg tablet TAKE 1 TO 5 TABLETS BY MOUTH DAILY NEEDED 04/04/2022 documented as of this encounter Plan of Treatment Not on file documented as of this encounter Visit Diagnoses Not on filedocumented in this encounter Additional Health Concerns Infection Onset Date Last Indicated Resolved Time Protective Environment 05/27/2024 05/27/202407/26 5:47 AM CDT documented as of this encounter Care Teams Account Support Associate Relationship Specialty Start Date End Date Elsewhere, Pcp PCP - General Family Medicine 09/09/21 documented as of this encounter
--- OUTSIDE RECORDS SUMMARY | 2024-08-14 14:21 | XMS_ITS | Encounter Summary ---
Author Organization [facility] Address [address] [place] [address] Care Team Providers Care Supervisor Glycerin Name Role Phone Elsewhere, Pcp Primary Care Provider Unavailabl e Encounter Details Date Type Department Care Team (Late st Contact Info) Description 06/27/2024 Documentation Department of Oncology in [place], [place] [address] [place] [address] Amy Ward, M.S.W., L.I.C.S.W. [address] [place] [phone] Social History Tobacco Use Types Packs/Day Years [...] declined 07/26/2021 How often do you attend bahai or adventism serv ices? Patient declined 07/26/2021 Do you belong to any clubs o r organizations such as bahai groups, unions, fraternal or athletic groups, or [...] medical care, and heating? Patient declined 07/26/2021 [facility] - Occupational Stress [...] Date Recorded Dental: Regular Dentist Yes 11/23/20 Employment Answer Date Recorded Employment status Unemployed/not [...] AM CDT documented as of this encounter Progress Notes * Amy Ward L.I.C.S.W., M.S.W. - 06/27/2024 10:22 AM CDT Social work received a call from patient's father, Chad at [phone] asking for more resources for patient in help paying his bills. Computer Forensics Examiner previously assisted in getting patient giftcards from[employer] and [employer]. Chad states the patient has not paid his rent, (patient's parents own his house now and he pays rent to them). Suggested they reach back out to Social Security again as he was previously denied due to not having enough work credits and a prosthetic which would allow him to work, encouraged them to reach out again. Also encouraged [facility] to [facility] to see if he would qualify for any assistance there. Patient has three days of treatment left and is doing well. documented in this encounter Plan of Treatment Not on file documented as of this encounter Visit Diagnoses Not on filedocumented in this encounter Additional Health Concerns Infection Onset Date Last Indicated Resolved Time Protective Environment 05/27/2024 05/27/202407/26 5:47 AM CDT documented as of this encounter Care Teams Supervisor Glycerin Relationship Specialty Start Date End Date Elsewhere, Pcp PCP - General Family Medicine 09/09/21 documented as of this encounter
--- OUTSIDE RECORDS SUMMARY | 2024-08-14 14:21 | XMS_ITS | Referral Summary ---
Author Organization [facility] Address [address] [place] [address] Care Team Providers Care Twine Reeling Machine Operator Name Role Phone Elsewhere, Pcp Primary Care Provider Unavailabl e Source Comments Patient records contain information from all sites at [facility]. For routine questions regarding patient records, call [phone] during business hours, M-F 8:00 AM - 5:00 PM Central Time. Record requests for emergency care only can be directed to [phone] at any time.[facility] Encounters Date Type Department Care Team Description 07/02/2024 Documentation Department of Radiation Oncology in [address] [address] Genesis Aguilar M.D. 07/02/2024 9:38 AM CDT - 07/02/2024 11:59 PM CDT Hospital Encounter Department of Radiation Oncology in [address] [address] Genesis Aguilar M.D. Discharge Disposition: Home or Self Care 07/01/2024 9:43 AM CDT - 07/01/2024 11:59 PM CDT Hospital Encounter Department of Radiation Oncology in [address] [address] Genesis Aguilar M.D. Discharge Disposition: Home or Self Care 06/28/2024 9:48 AM CDT - 06/28/2024 11:59 PM CDT Hospital Encounter Department of Radiation Oncology in [address] [address] Genesis Aguilar M.D. Discharge Disposition: Home or Self Care 06/27/2024 Documentation Department of Oncology in [place], [place] [address] [place] [address] Amy Ward M.STeo., L.I.C.S.W. 06/27/2024 9:28 AM CDT - 06/27/2024 11:59 PM CDT Hospital Encounter Department of Radiation Oncology in [address] [address] Genesis Aguilar M.D. Discharge Disposition: Home or Self Care 06/26/2024 9:34 AM CDT - 06/26/2024 2:36 PM CDT Hospital Encounter Department of Radiation Oncology in [address] [address] Genesis Aguilar M.D. Malignant Neoplasm Of Brain (HCC) 06/26/2024 9:33 AM CDT Hospital Encounter Department of Radiation Oncology in [address] [address] Genesis Aguilar M.D. Discharge Disposition: Home or Self Care 06/25/2024 9:41 AM CDT - 06/25/2024 11:59 PM CDT Hospital Encounter Department of Radiation Oncology in [address] [address] Genesis Aguilar M.D. Discharge Disposition: Home or Self Care 06/24/2024 9:41 AM CDT - 06/24/2024 11:59 PM CDT Hospital Encounter Department of Radiation Oncology in [address] [address] Genesis Aguilar M.D. Discharge Disposition: Home or Self Care 06/21/2024 9:28 AM CDT - 06/21/2024 11:59 PM CDT Hospital Encounter Department of Radiation Oncology in [address] [address] Genesis Aguilar M.D. Discharge Disposition: Home or Self Care 06/20/2024 9:36 AM CDT - 06/20/2024 11:59 PM CDT Hospital Encounter Department of Radiation Oncology in [address] [address] Genesis Aguilar M.D. Discharge Disposition: Home or Self Care 06/19/2024 9:14 AM CDT - 06/19/2024 2:50 PM CDT Hospital Encounter Department of Radiation Oncology in [address] [address] Genesis Aguilar M.D. Malignant Neoplasm Of Brain (HCC) 06/19/2024 9:14 AM CDT - 06/19/2024 11:59 PM CDT Hospital Encounter Department of Radiation Oncology in [address] [address] Genesis Aguilar M.D. Discharge Disposition: Home or Self Care 06/18/2024 9:49 AM CDT - 06/18/2024 11:59 PM CDT Hospital Encounter Department of Radiation Oncology in [address] [address] Genesis Aguilar M.D. Discharge Disposition: Home or Self Care 06/17/2024 9:40 AM CDT - 06/17/2024 11:59 PM CDT Hospital Encounter Department of Radiation Oncology in [address] [address] Genesis Aguilar M.D. Discharge Disposition: Home or Self Care 06/14/2024 9:43 AM CDT - 06/14/2024 11:59 PM CDT Hospital Encounter Department of Radiation Oncology in [address] [address] Genesis Aguilar M.D. Discharge Disposition: Home or Self Care 06/13/2024 9:40 AM CDT - 06/13/2024 11:59 PM CDT Hospital Encounter Department of Radiation Oncology in [address] [address] Genesis Aguilar M.D. Discharge Disposition: Home or Self Care 06/12/2024 9:44 AM CDT - 06/12/2024 12:55 PM CDT Hospital Encounter Department of Radiation Oncology in [address] [address] Genesis Aguilar M.D. Malignant Neoplasm Of Brain (HCC) 06/12/2024 9:44 AM CDT - 06/12/2024 11:59 PM CDT Hospital Encounter Department of Radiation Oncology in [address] [address] Genesis Aguilar M.D. Discharge Disposition: Home or Self Care 06/11/2024 Clinical Communication Department of Oncology in [place], [place] [address] [place] [address] Amy Ward, M.S.W., L.I.C.S.W. 06/11/2024 9:47 AM CDT - 06/11/2024 11:59 PM CDT Hospital Encounter Department of Radiation Oncology in [address] [address] Genesis Aguilar M.D. Discharge Disposition: Home or Self Care 06/10/2024 10:30 AM CDT - 06/10/2024 11:20 AM CDT Hospital Encounter Department of Radiation Oncology in [address] [address] Genesis Aguilar M.D. Grieman, Kari A, RJudyNJudy Malignant Neoplasm Of Brain (HCC) (Primary Dx) 06/07/2024 9:46 AM CDT - 06/07/2024 11:59 PM CDT Hospital Encounter Department of Radiation Oncology in [address] [address] Genesis Aguilar M.D. Discharge Disposition: Home or Self Care 06/06/2024 9:56 AM CDT - 06/06/2024 11:59 PM CDT Hospital Encounter Department of Radiation Oncology in [address] [address] Genesis Aguilar M.D. Discharge Disposition: Home or Self Care 06/05/2024 9:43 AM CDT - 06/05/2024 11:59 PM CDT Hospital Encounter Department of Radiation Oncology in [address] [address] Genesis Aguilar M.D. Discharge Disposition: Home or Self Care 06/04/2024 9:54 AM CDT - 06/04/2024 6:14 PM CDT Hospital Encounter Department of Radiation Oncology in [address] [address] Jeovanny Khalil M.D. Malignant Neoplasm Of Brain (HCC) 06/04/2024 9:53 AM CDT Hospital Encounter Department of Radiation Oncology in [address] [address] Genesis Aguilar M.D. Discharge Disposition: Home or Self Care 06/03/2024 10:00 AM CDT - 06/03/2024 11:59 PM CDT Hospital Encounter Department of Radiation Oncology in [address] [address] Genesis Aguilar M.D. Discharge Disposition: Home or Self Care 05/31/2024 10:13 AM CDT - 05/31/2024 11:59 PM CDT Hospital Encounter Department of Radiation Oncology in [address] [address] Genesis Aguilar M.D. Discharge Disposition: Home or Self Care 05/29/2024 9:58 AM CDT - 05/29/2024 11:26 AM CDT Hospital Encounter Department of Radiation Oncology in [address] [address] Genesis Aguilar M.D. Malignant Neoplasm Of Brain (HCC) 05/29/2024 9:58 AM CDT - 05/29/2024 11:59 PM CDT Hospital Encounter Department of Radiation Oncology in [address] [address] Genesis Aguilar M.D. Discharge Disposition: Home or Self Care 05/28/2024 8:50 AM CDT - 05/28/2024 9:32 AM CDT Hospital Encounter Department of Radiation Oncology in [address] [address] Mica Gonzalez M.D. Wacholz, Abigail M, M.S.W., L.I.C.S.W. Counseling Phase Of Life Problem (Primary Dx); Malignant Neoplasm Of Brain (HCC) Discharge Disposition: Home or Self Care 05/28/2024 9:33 AM CDT - 05/28/2024 11:59 PM CDT Hospital Encounter Department of Radiation Oncology in [address] [address] Genesis Aguilar M.D. Discharge Disposition: Home or Self Care 05/27/2024 9:30 AM CDT - 05/27/2024 9:44 AM CDT Hospital Encounter Department of Radiation Oncology in [address] [address] Genesis Aguilar M.D. Grieman, Kari A, R.NJudy Malignant Neoplasm Of Brain (HCC) (Primary Dx) 05/27/2024 9:45 AM CDT - 05/27/2024 11:59 PM CDT Hospital Encounter Department of Radiation Oncology in [address] [address] Genesis Aguilar M.D. Discharge Disposition: Home or Self Care 05/24/2024 9:46 AM CDT - 05/24/2024 2:34 PM CDT Hospital Encounter Department of Radiation Oncology in [address] [address] Genesis Aguilar M.D. Grieman, Kari A, R.N. Malignant Neoplasm Of Brain (HCC) Discharge Disposition: Home or Self Care 05/24/2024 9:46 AM CDT - 05/24/2024 11:59 PM CDT Hospital Encounter Department of Radiation Oncology in [address] [address] Genesis Aguilar M.D. Discharge Disposition: Home or Self Care 05/23/2024 11:04 AM CDT - 05/23/2024 2:35 PM CDT Hospital Encounter Department of Radiation Oncology in [address] [address] Genesis Aguilar M.D. Retterath, Chelsey A, R.NJudy Malignant Neoplasm Of Brain (HCC) (Primary Dx) 05/23/2024 9:51 AM CDT - 05/23/2024 11:03 AM CDT Hospital Encounter Department of Radiation Oncology in [address] [address] Genesis Aguilar M.D. Discharge Disposition: Home or Self Care 05/22/2024 9:53 AM CDT - 05/22/2024 11:59 PM CDT Hospital Encounter Department of Radiation Oncology in [address] [address] Genesis Aguilar M.D. Discharge Disposition: Home or Self Care 05/21/2024 2:35 PM CDT - 05/21/2024 4:59 PM CDT Hospital Encounter Department of Radiation Oncology in [address] [address] Genesis Aguilar M.D. Malignant Neoplasm Of Brain (HCC) 05/21/2024 2:34 PM CDT Hospital Encounter Department of Radiation Oncology in [address] [address] Genesis Aguilar M.D. Discharge Disposition: Home or Self Care 05/20/2024 10:00 AM CDT - 05/20/2024 11:59 PM CDT Hospital Encounter Department of Radiation Oncology in [address] [address] Genesis Aguilar M.D. Discharge Disposition: Home or Self Care from Last 3 Months Allergies No known [...] NOT SWALLOW. 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 Patient declined 07/26/2021 Do you belong to any clubs o r organizations such as temple groups, unions, fraternal or athletic groups, or [...] medical care, and heating? Patient declined 07/26/2021 [facility] Questionnaire Answer Date [...] place to sleep or slept in a mcc (including now)? Patient refused 07/26/2021 Nutrition Answer [...] DT Respiratory Rate 18 10/08/2021 4:40 PM PONY ROLL FINISHER Oxygen Saturation 96% 10/08/2021 4:40 PM PONY ROLL FINISHER Inhaled Oxygen Concentration - - Weight 115 kg (254 lb 10.1 oz) 06/26/2024 10:32 AM CDT Height 177.8 cm (5' 10) 10/08/2021 3:55 PM PONY ROLL FINISHER Body Mass Index 36.54 10/08/2021 3:55 PM PONY ROLL FINISHER Plan of Treatment Not on file Medical Devices Implanted Type Area Motor Adjuster Device Identifier Shelf Expiration Date Model / Serial / Lot Clp [facility] - [id number] Implanted:Qty : 1 on 09/09/2021 by Sanford Mena M.D. at [facility] Hardware e.g. pins/screws/ rods Right: Leg Ethicon [id number] 05/26/2026 MCS20 / / [id number] Clp Apr [facility] - [id number] Implanted:Qty : 1 on 09/09/2021 by Sanford Mena M.D. at [facility] Hardware e.g. pins/screws/ rods Right: Leg Ethicon [id number] 05/26/2026 MSM20 / / [id number] Explanted Type Area Motor Adjuster Device Identifier Shelf Expiration Date Model / Serial / Lot Cmnt Bn Hi Visc Pmma 40 - [id number] Implanted:Qty: 1 on 11/15/2019 by Maude Shah M.D. at [facility] Explanted:Qty: 1 on 12/03/2019 by Sanford Mena M.D. 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) BASIC METABOLIC PANEL, S/P Routine 11/19/2019 7:46 AM PONY ROLL FINISHER from Last 3 Months or Most Recently [...] Elapsed Days 43 GARSIA ARIA Reference Point [id number] GARSIA ARIA Dosage Given to Date cGy 6000 GARSIA ARIA Plan ID [id number] GARSIA ARIA Fractions Treated to Date 30 GARSIA ARIA Planned Total Fractions 30 GARSIA ARIA Prescribed Dose Per Fraction 200 GARSIA ARIA Prescription Dose in cGy 6000 GARSIA ARIA Plan Primary Reference Point [id number] GARSIA ARIA 07/02/2024 10:0 8 AM CDT [...] Elapsed Days 43 GARSIA ARIA Reference Point [id number] GARSIA ARIA Dosage Given to Date cGy 6000 GARSIA ARIA Session Dosage Given 200 GARSIA ARIA Plan ID [id number] GARSIA ARIA Fractions Treated to Date 30 GARSIA ARIA Planned Total Fractions 30 GARSIA ARIA Prescribed Dose Per Fraction 200 GARSIA ARIA Prescription Dose in cGy 6000 GARSIA ARIA Plan Primary Reference Point [id number] GARSIA ARIA 07/02/2024 10:0 8 AM CDT Provider Not In System RADIATION ONCOLOG Y ORDERABLES GARSIA GIOA na from Last 3 Months Advance Directives For more information, please contact: [phone] * Full Code (Latest Code Status on [...] Answer Comments Full Code: Discussed Care Teams Twine Reeling Machine Operator Relationship Specialty Start Date End Date Elsewhere, Pcp PCP - General Family Medicine 09/09/21
--- OUTSIDE RECORDS SUMMARY | 2024-08-14 14:21 | XMS_ITS | Encounter Summary ---
Author Organization [facility] Address [address] [place] [address] Care Team Providers Care Busperson Name Role Phone Elsewhere, Pcp Primary Care Provider Unavailabl e Reason for Visit * Radiation Therapy (Routine) - Authorized Specialty Diagnoses / Procedures Referred By Misa dinero Referred To Contact Diagnoses Malignant Neoplasm Of Brain (HCC) Procedures Prior Auth Rad Tx [place] IMRT COMPLEX [place] GUIDANCE FOR LOC RAD TX [place] IMRT RADIOTHERAPY PLAN Genesis Aguilar M.D. [address] [place] [phone] [facility] Referral ID Status Reason Start Date Expiration Date V isits Requested Visits Authorized [id number] Authorized 05/15/2024 11/26/2024 30 30 Encounter Details Date Type Department Care Team (Latest Contact Info) Description 06/24/2024 9:41 AM CDT - 06/24/2024 11:59 PM CDT Hospital Encounter Department of Radiation Oncology in [place], [place] [address] [place] [phone] Genesis Aguilar M.D. [address] [place] [phone] Discharge Disposition: Home or Self Care Social [...] declined 07/26/2021 How often do you attend yazdanism or confucianism serv ices? Patient declined 07/26/2021 Do you belong to any clubs o r organizations such as yazdanism groups, unions, fraternal or athletic groups, or [...] Patient declined 07/26/2021 [facility] - Occupational Stress Questionnaire Answer Date [...] place to sleep or slept in a alf (including now)? Patient refused 07/26/2021 Nutrition Answer [...] mouth at bedtime. 04/29/2024 miscellaneous medical supply [facility] CPAP machine for home use at pressure: [...] 5 TABLETS BY MOUTH DAILY NEEDED 04/04/2022 temozolomide (Temodar) 180 mg capsule Take 180 mg by mouth at bedtime. 05/14/2024 06/25/2024 documented as of this encounter Plan of Treatment Not on file documented as of this encounter Visit Diagnoses Not on filedocumented in this encounter Additional Health Concerns Infection Onset Date Last Indicated Resolved Time Protective Environment 05/27/2024 05/27/202407/26 5:47 AM CDT documented as of this encounter Care Teams Busperson Relationship Specialty Start Date End Date Elsewhere, Pcp PCP - General Family Medicine 09/09/21 documented as of this encounter
--- OUTSIDE RECORDS SUMMARY | 2024-08-14 14:21 | XMS_ITS | Encounter Summary ---
Author Organization [facility] Address [address] [place] [address] Care Team Providers Care Shareholder Name Role Phone Elsewhere, Pcp Primary Care Provider Unavailabl e Reason for Visit * Radiation Therapy (Routine) - Authorized Specialty Diagnoses / Procedures Referred By Misa dinero Referred To Contact Diagnoses Malignant Neoplasm Of Brain (HCC) Procedures Prior Auth Rad Tx [place] IMRT COMPLEX [place] GUIDANCE FOR LOC RAD TX [place] IMRT RADIOTHERAPY PLAN Genesis Aguilar M.D. [address] [place] [phone] [facility] Referral ID Status Reason Start Date Expiration Date V isits Requested Visits Authorized [id number] Authorized 05/15/2024 11/26/2024 30 30 Encounter Details Date Type Department Care Team (Latest Contact Info) Description 07/01/2024 9:43 AM CDT - 07/01/2024 11:59 PM CDT Hospital Encounter Department of Radiation Oncology in [place], [place] [address] [place] [phone] Geneiss Aguilar M.D. [address] [place] [phone] Discharge Disposition: Home or Self Care Social [...] declined 07/26/2021 How often do you attend yazidism or jain serv ices? Patient declined 07/26/2021 Do you belong to any clubs o r organizations such as yazidism groups, unions, fraternal or athletic groups, or [...] medical care, and heating? Patient declined 07/26/2021 [facility] - Occupational Stress Questionnaire Answer Date Recorded [...] mouth at bedtime. 04/29/2024 miscellaneous medical supply [facility] [place] for home use at pressure: [...] documented as of this encounter Care Teams Shareholder Relationship Specialty Start Date End Date Elsewhere, Pcp PCP - General Family Medicine 09/09/21 documented as of this encounter
--- OUTSIDE RECORDS SUMMARY | 2024-08-14 14:21 | XMS_ITS | Encounter Summary ---
Author Organization [facility] Address [address] [place] [address] Care Team Providers Care Jute Bag Clipper Name Role Phone Elsewhere, Pcp Primary Care Provider Unavailabl e Reason for Visit * Radiation Therapy (Routine) - Authorized Specialty Diagnoses / Procedures Referred By Misa dinero Referred To Contact Diagnoses Malignant Neoplasm Of Brain (HCC) Procedures Prior Auth Rad Tx [place] IMRT COMPLEX [place] GUIDANCE FOR LOC RAD TX [place] IMRT RADIOTHERAPY PLAN Genesis Aguilar M.D. [address] [place] [phone] [facility] Referral ID Status Reason Start Date Expiration Date V isits Requested Visits Authorized [id number] Authorized 05/15/2024 11/26/2024 30 30 Encounter Details Date Type Department Care Team (Latest Contact Info) Description 06/21/2024 9:28 AM CDT - 06/21/2024 11:59 PM CDT Hospital Encounter Department of Radiation Oncology in [place], [place] [address] [place] [address] Genesis Aguilar M.D. [address] [place] [phone] Discharge Disposition: Home or Self Care Social [...] declined 07/26/2021 How often do you attend congregation or hoahaoism serv ices? Patient declined 07/26/2021 Do you belong to any clubs o r organizations such as congregation groups, unions, fraternal or athletic groups, or [...] medical care, and heating? Patient declined 07/26/2021 [facility] [place] [facility] - Occupational Stress Questionnaire Answer Date Recorded [...] mouth at bedtime. 04/29/2024 miscellaneous medical supply [facility] [place] [place] CPAP machine for home use at pressure: [...] documented as of this encounter Care Teams Jute Bag Clipper Relationship Specialty Start Date End Date Elsewhere, Pcp PCP - General Family Medicine 09/09/21 documented as of this encounter
--- OUTSIDE RECORDS SUMMARY | 2024-08-14 14:21 | XMS_ITS | Encounter Summary ---
Author Organization [facility] Address [address] [place] [address] Care Team Providers Care Welding Instructor Name Role Phone Elsewhere, Pcp Primary Care Provider Unavailabl e Encounter Details Date Type Department Care Team (Latest Contact Info) Description 07/02/2024 9:38 AM CDT - 07/02/2024 11:59 PM CDT Hospital Encounter Department of Radiation Oncology in [place], [place] [address] [place] [phone] Genesis Aguilar M.D. [address] [place] [address] Discharge Disposition: Home or Self Care Social [...] declined 07/26/2021 How often do you attend yarsani or temple serv ices? Patient declined 07/26/2021 Do you belong to any clubs o r organizations such as yarsani groups, unions, fraternal or athletic groups, or [...] medical care, and heating? Patient declined 07/26/2021 [facility] - Occupational [...] place to sleep or slept in a retirement (including now)? Patient refused 07/26/2021 Nutrition Answer [...] mouth at bedtime. 04/29/2024 miscellaneous medical supply [facility] CPAP machine for home use at pressure: [...] documented as of this encounter Care Teams Welding Instructor Relationship Specialty Start Date End Date Elsewhere, Pcp PCP - General Family Medicine 09/09/21 documented as of this encounter
--- OUTSIDE RECORDS SUMMARY | 2024-08-14 14:21 | XMS_ITS | Encounter Summary ---
Author Organization [facility] Address [address] [place] [address] Care Team Providers Care Outpatient Program Coordinator Name Role Phone Elsewhere, Pcp Primary Care Provider Unavailabl e Reason for Visit * Radiation Therapy (Routine) - Authorized Specialty Diagnoses / Procedures Referred By Misa dinero Referred To Contact Diagnoses Malignant Neoplasm Of Brain (HCC) Procedures Prior Auth Rad Tx ID IMRT COMPLEX ID GUIDANCE FOR LOC RAD TX ID IMRT RADIOTHERAPY PLAN Genesis Aguilar M.D. [address] [place] [phone] [facility] Referral ID Status Reason Start Date Expiration Date V isits Requested Visits Authorized [id number] Authorized 05/15/2024 11/26/2024 30 30 Encounter Details Date Type Department Care Team (Latest Contact Info) Description 06/27/2024 9:28 AM CDT - 06/27/2024 11:59 PM CDT Hospital Encounter Department of Radiation Oncology in [place], [place] [address] [place] [phone] Genesis Aguilar M.D. [address] [place] [phone] Discharge Disposition: Home or Self Care Social [...] declined 07/26/2021 How often do you attend restorationism or restoration serv ices? Patient declined 07/26/2021 Do you belong to any clubs o r organizations such as restorationism groups, unions, fraternal or athletic groups, or [...] Patient declined 07/26/2021 [facility] [place] [facility] - Occupational Stress Questionnaire Answer Date Recorded [...] place to sleep or slept in a half-way (including now)? Patient refused 07/26/2021 Nutrition Answer [...] mouth at bedtime. 04/29/2024 miscellaneous medical supply [facility] CP[place] for home use at pressure: [...] documented as of this encounter Care Teams Outpatient Program Coordinator Relationship Specialty Start Date End Date Elsewhere, Pcp PCP - General Family Medicine 09/09/21 documented as of this encounter
--- OUTSIDE RECORDS SUMMARY | 2024-08-14 14:21 | XMS_ITS | Encounter Summary ---
Author Organization [facility] Address [address] [place] [address] Care Team Providers Care Commercial Airline Pilot Name Role Phone Elsewhere, Pcp Primary Care Provider Unavailabl e Encounter Details Date Type Department Care Team (Late st Contact Info) Description 07/02/2024 Documentation Department of Radiation Oncology in [place], [place] [address] [place] [phone] Genesis Aguilar M.D. [address] [place] [phone] Social History Tobacco Use Types Packs/Day Years [...] How often do you attend yazidism or caodaism serv ices? Patient declined 07/26/2021 Do you [...] medical care, and heating? Patient declined [facility] - Occupational Stress Questionnaire Answer [...] AM CDT documented as of this encounter Miscellaneous Notes * Radiation Completion Notes - Jessica Arevalo R.N. - 07/02/2024 11:59 PM CDT DIAGNOSIS: 1. Malignant Neoplasm Of Brain (HCC) Attending Physician: Genesis Aguilar M.D. Treatment Intent: Curative Concomitant Therapy: Chemotherapy Single Plan Treatment Course: 1xBrain Plan ID Fractions Dose / Fraction (cGy) Dose Treated (cGy) Dose Planned (cGy) First Treatment Last Treatment Elapsed Days [id number] 200 6000 6000 05/20/2024 07/02/2024 43 Course Summary 05/20/2024 07/02/2024 43 Radiation Modality: Photons CLINICAL SUMMARY Eleuterio Tafoya completed radiation treatment as planned with interruptions. Patient missed treatment on June 10, 2024 due to anxiety. The course of treatment was tolerated well. The patient experienced toxicities of grade 1 nausea and headache during radiation treatment. TREATMENT RESPONSE: Response to treatment will be determined by post-treatment imaging and/or laboratory work. RECOMMENDED FOLLOW UP: Primary Medical Oncologist. Follow-up will be with Aleksey and Radiation Oncology will see him again as needed. Signed by: Jessica Arevalo R.N., 07/26/2024 4:06 PM CDT [facility] [address] [place] [address] documented in this encounter Plan of Treatment Not on file documented as of this encounter Visit Diagnoses Diagnosis Malignant Neoplasm Of Brain (HCC)- Primary documented in this encounter Additional Health Concerns Infection Onset Date Last Indicated Resolved Time Protective Environment 05/27/2024 05/27/202407/26 5:47 AM CDT documented as of this encounter Care Teams Commercial Airline Pilot Relationship Specialty Start Date End Date Elsewhere, Pcp PCP - General Family Medicine 09/09/21 documented as of this encounter
--- OUTSIDE RECORDS SUMMARY | 2024-08-14 14:21 | XMS_ITS | Encounter Summary ---
Author Organization [facility] Address [address] [place] [address] Care Team Providers Care Casing Runner Name Role Phone Elsewhere, Pcp Primary Care Provider Unavailabl e Reason for Visit * Radiation Therapy (Routine) - Authorized Specialty Diagnoses / Procedures Referred By Misa dinero Referred To Contact Diagnoses Malignant Neoplasm Of Brain (HCC) Procedures Prior Auth Rad Tx HI IMRT COMPLEX HI GUIDANCE FOR LOC RAD TX HI IMRT RADIOTHERAPY PLAN Genesis Aguilar M.D. 200 [place] [phone] [facility] Referral ID Status Reason Start Date Expiration Date V isits Requested Visits Authorized [id number] Authorized 05/15/2024 11/26/2024 30 30 Encounter Details Date Type Department Care Team (Latest Contact Info) Description 06/26/2024 9:33 AM CDT Hospital Encounter Department of Radiation Oncology in [place], [place] [address] [place] [phone] Genesis Aguilar M.D. [address] [place] [phone] Discharge Disposition: Home or Self Care Social [...] How often do you attend pentecostalism or yazidi serv ices? Patient declined 07/26/2021 Do you [...] [facility] - Occupational [...] place to sleep or slept in a detention (including now)? Patient refused 07/26/2021 Nutrition Answer [...] mouth at bedtime. 04/29/2024 miscellaneous medical supply [facility] CPAP machine for home use at pressure: [...] documented as of this encounter Care Teams Casing Runner Relationship Specialty Start Date End Date Elsewhere, Pcp PCP - General Family Medicine 09/09/21 documented as of this encounter
--- OUTSIDE RECORDS SUMMARY | 2024-08-14 14:21 | XMS_ITS ---
Author Organization [facility] Address [address] [place] [address] Care Team Providers Care Applied Biology Professor Name Role Phone Unavailable Unavailable Unavailable Surgery Details Not on file Complications Check Surgery Details section. Procedure Estimated Blood Loss Check Surgery Details section. Procedure Findings Check Surgery Details section. Procedure Specimens Taken Check Surgery Details section.
[2024-08-14] MEDS: MORPHINE 4 MG/ML INJ IVP (14:22)
--- OUTSIDE RECORDS SUMMARY | 2024-08-14 14:22 | XMS_ITS | Encounter Summary ---
Author Organization [facility] Address [address] [place] [address] Care Team Providers Care Greens Keeper Name Role Phone Elsewhere, Pcp Primary Care Provider Unavailabl e Encounter Details Date Type Department Care Team (Late st Contact Info) Description 06/11/2024 Clinical Communication Department of Oncology in [place], [place] [address] [place] [phone] Amy Ward, M.S.W., L.I.C.S.W. [address] [place] [phone] Social History Tobacco Use Types Packs/Day Years [...] declined 07/26/2021 How often do you attend protestant or druze serv ices? Patient declined 07/26/2021 Do you belong to any clubs o r organizations such as protestant groups, unions, fraternal or athletic groups, or [...] medical care, and heating? Patient declined 07/26/2021 [facility] - Occupational Stress [...] place to sleep or slept in a correction (including now)? Patient refused 07/26/2021 Nutrition Answer [...] as of this encounter Miscellaneous Notes * Telephone Encounter - Amy Ward L.I.C.S.W., M.S.W. - 06/11/2024 9:33 AM CDT Social work received two calls from patient's father, Chad Tafoya asking about services available. Upon further clarification, it was discovered they were looking for financial resources available that patient and underwriter talked about at our visit. Patient was included in an email for assistance from [employer] however states he did not receives the emails, confirmed it was sent to [facility] [employer] [employer]. Patient was also told to watch for a message in his portal with a beckie opportunity but he has not logged into portal. These opportunities were sent to patient's email and his father's email. Patient was again encouraged to abstain from energy drinks and alcohol for duration of treatment in order to ensure his treatment is successfully completed. documented in this encounter Plan of Treatment Not on file documented as of this encounter Visit Diagnoses Not on filedocumented in this encounter Additional Health Concerns Infection Onset Date Last Indicated Resolved Time Protective Environment 05/27/2024 05/27/202407/26 5:47 AM CDT documented as of this encounter Care Teams Greens Keeper Relationship Specialty Start Date End Date Elsewhere, Pcp PCP - General Family Medicine 09/09/21 documented as of this encounter
--- OUTSIDE RECORDS SUMMARY | 2024-08-14 14:22 | XMS_ITS | Encounter Summary ---
Author Organization [facility] Address [address] [place] [address] Care Team Providers Care Superintendent Electric Power Name Role Phone Elsewhere, Pcp Primary Care Provider Unavailabl e Reason for Visit * Radiation Therapy (Routine) - Authorized Specialty Diagnoses / Procedures Referred By Misa dinero Referred To Contact Diagnoses Malignant Neoplasm Of Brain (HCC) Procedures Prior Auth Rad Tx [place] IMRT COMPLEX [place] GUIDANCE FOR LOC RAD TX [place] IMRT RADIOTHERAPY PLAN Genesis Aguilar M.D. [address] [place] [phone] [facility] Referral ID Status Reason Start Date Expiration Date V isits Requested Visits Authorized [id number] Authorized 05/15/2024 11/26/2024 30 30 Encounter Details Date Type Department Care Team (Latest Contact Info) Description 06/12/2024 9:44 AM CDT - 06/12/2024 11:59 PM CDT Hospital Encounter Department of Radiation Oncology in [place], [place] [address] [place] [phone] Genesis Aguilar M.D. [address] [place] [phone] Discharge Disposition: Home or Self Care Social [...] declined 07/26/2021 How often do you attend taoism or adventism serv ices? Patient declined 07/26/2021 Do you belong to any clubs o r organizations such as taoism groups, unions, fraternal or athletic groups, or [...] medical care, and heating? Patient declined 07/26/2021 [facility] - Occupational Stress Questionnaire Answer Date [...] mouth at bedtime. 04/29/2024 miscellaneous medical supply [facility] CPAP machine for home use at pressure: [...] documented as of this encounter Care Teams Superintendent Electric Power Relationship Specialty Start Date End Date Elsewhere, Pcp PCP - General Family Medicine 09/09/21 documented as of this encounter
--- OUTSIDE RECORDS SUMMARY | 2024-08-14 14:22 | XMS_ITS | Encounter Summary ---
Author Organization [facility] Address [address] [place] [address] Care Team Providers Care Human Resources Coordinator Name Role Phone Elsewhere, Pcp Primary Care Provider Unavailabl e Reason for Referral * Outpatient (Routine) - Authorized Specialty Diagnoses / Procedures Referred By Contac t Referred To Contact Radiation Oncology Genesis Aguilar M.D. [address] [place] [phone] [facility] Region Referral ID Status Reason Start Date Expiration Date V isits Requested Visits Authorized [id number] Authorized 05/23/2024 11/22/2025 5 5 Reason for Visit * Outpatient (Routine) - Authorized Specialty Diagnoses / Procedures Referred By Misa dinero Referred To Contact Radiation Oncology Genesis Aguilar M.D. [address] [place] [phone] [facility] Region Referral ID Status Reason Start Date Expiration Date V isits Requested Visits Authorized [id number] Authorized 05/23/2024 11/22/2025 5 5 Encounter Details Date Type Department Care Team (Latest Contact Info) Description 06/10/2024 10:30 AM CDT - 06/10/2024 11:20 AM CDT Hospital Encounter Department of Radiation Oncology in [place], [place] [address] [place] [phone] Genesis Aguilar M.D. [address] [place] [phone] Jessica Arevalo R.N. [address] [place] [phone] Malignant Neoplasm Of Brain (HCC) (Primary Dx) [...] declined 07/26/2021 How often do you attend zoroastrianism or evangelical serv ices? Patient declined 07/26/2021 Do you belong to any clubs o r organizations such as zoroastrianism groups, unions, fraternal or athletic groups, or [...] medical care, and heating? Patient declined 07/26/2021 [facility] Occupat ional Health - Occupational Stress [...] mouth at bedtime. 04/29/2024 miscellaneous medical supply [facility] CPAP machine for [...] 05/14/2024 06/25/2024 documented as of this encounter Progress Notes * Jessica Arevalo, RJudyN. - 06/10/2024 10:30 AM CDT SUBJECTIVE REASON FOR VISIT Evaluation for side effects while receiving radiation treatment Nurse visit HISTORY OF PRESENT ILLNESS Eleuterio Tafoya is a 49 y.o. 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 Patient is now undergoing radiation therapy concurrent with Temodar. The patient reports that Ativan dose today dissolved same time he arrived to Radiation Therapy clinic today. Patient reports that he drank Monster drink this morning and feels this increased his energy today. Patient struggled with anxiety with treatment today. Therefore needed a break before treatment today. OBJECTIVE There were no vitals taken for this visit. PHYSICAL EXAM General: Alert and oriented in no apparent distress. ASSESSMENT / PLAN I discussed with patient that his Ativan dose may needed more time to absorb in prior to radiation treatment today. Patient will wait 20 minutes before going back for treatment this late morning. I encouraged patient to hold off on both alcohol and Monster energy drinks going forward. I encouraged patient to work on completing breathing exercises. Patient has appointment with his Neuro team at [facility] at [address] Ryder confirmed last week that patient is to be daily Temodar daily 7 days a week. He will contact us with any questions or concerns. We will continue with radiation treatment as planned. Signed by: Jessica Arevalo R.N. 06/10/2024 11:13 AM CDT documented in this encounter Plan of Treatment Scheduled Referrals Name Type Priority Associated Diagnoses Order Schedule Radiation Oncology nurse visit (clinic) Outpatient Referral Routine Once for 1 Occurrences starting 06/10/2024 until 06/10/2024 documented as of this encounter Visit Diagnoses Diagnosis Malignant Neoplasm Of Brain (HCC)- Primary documented in this encounter Additional Health Concerns Infection Onset Date Last Indicated Resolved Time Protective Environment 05/27/2024 05/27/202407/26 5:47 AM CDT documented as of this encounter Care Teams Human Resources Coordinator Relationship Specialty Start Date End Date Elsewhere, Pcp PCP - General Family Medicine 09/09/21 documented as of this encounter
--- OUTSIDE RECORDS SUMMARY | 2024-08-14 14:22 | XMS_ITS | Encounter Summary ---
Author Organization [facility] Address [address] [place] [address] Care Team Providers Care Leather Flesher Name Role Phone Elsewhere, Pcp Primary Care Provider Unavailabl e Reason for Referral * Radiation Therapy (Routine) - Authorized Specialty Diagnoses / Procedures Referred By Misa dinero Referred To Contact Diagnoses Malignant Neoplasm Of Brain (HCC) Procedures Management Visit Genesis Aguilar M.D. [address] [place] [phone] [facility] Region Referral ID Status Reason Start Date Expiration Date V isits Requested Visits Authorized [id number] Authorized 05/03/2024 05/03/2025 10 10 Reason for Visit * Radiation Therapy (Routine) - Authorized Specialty Diagnoses / Procedures Referred By Misa dinero Referred To Contact Diagnoses Malignant Neoplasm Of Brain (HCC) Procedures Management Visit Genesis Aguilar M.D. [address] [place] [address] [facility] Region Referral ID Status Reason Start Date Expiration Date V isits Requested Visits Authorized [id number] Authorized 05/03/2024 05/03/2025 10 10 Encounter Details Date Type Department Care Team (Latest Contact Info) Description 06/19/2024 9:14 AM CDT - 06/19/2024 2:50 PM CDT Hospital Encounter Department of Radiation Oncology in [place], [place] [address] [place] [phone] Genesis Aguilar M.D. [address] [place] [address] Malignant Neoplasm Of Brain (HCC) Social History [...] declined 07/26/2021 How often do you attend rastafari or congregational serv ices? Patient declined 07/26/2021 Do you belong to any clubs o r organizations such as rastafari groups, unions, fraternal or athletic groups, or [...] medical care, and heating? Patient declined 07/26/2021 [facility] ional Health - Occupational Stress [...] Sign Reading Time Taken Comments Blood Pressure 145/89 06/19/2024 9:56 AM CDT Pulse 67 06/19/2024 9:56 AM CDT Temperature 36.2 ??C (97.2 ??F) 06/19/2024 9:56 AM CD T Respiratory Rate - - Oxygen Saturation - - Inhaled Oxygen Concentration - - Weight 114 kg (251 lb 5.2 oz) 06/19/2024 9:56 AM CDT Height - - Body Mass Index 36.06 10/08/2021 3:55 PM INFORMATION SYSTEMS CONSULTANT documented in this encounter Medications at Time [...] mouth at bedtime. 04/29/2024 miscellaneous medical supply [facility] CPAP machine for home use at pressure: [...] Progress Notes * Genesis Aguilar M.D. - 06/19/2024 10:00 AM CDT ATTESTATION FOR MANAGEMENT VISIT I saw and evaluated the patient and participated in the sargent portions of the service as noted below.I reviewed the documentation of Ms. Reyna Christianson RN and agree with the findings and plan. Thepatient appears well on exam. We will continue with radiation as planned and monitor weekly. Genesis Aguilar M.D., 06/19/2024 SUBJECTIVE REASON FOR VISIT Evaluation for side [...] (cGy) First Treatment Last Treatment Elapsed Days [id number] 200 4200 6000 05/20/2024 06/19/2024 Course Summary 05/20/2024 06/19/2024 The patient was seen and examined today with Dr. Aguilar. Patient reports that he continues to have ongoing headaches but they are not worsening. He take Advil 400 mg three times daily and he is now taking 4 mg of Dexamethasone daily. He reports that this is his first day starting the lower dose. This is being by his [facility] Neurologist. He notes that he is nervous about decreasing the steroid dose as he feels like his headache may worsen. He notes that he did feel nauseated on Monday and Monday morning and on Monday he did vomit. He isn't experiencing nausea in the morning. He reports that he does take a nausea medication prior to his Temodar but forgets that he can take in more often. He continues to take pre treatment Ativan. He does note occasional word finding difficulties. He denies vision changes, hearing changes, dizziness, falls or newsymptoms. He is not applying lotion to treatment field area. Weight May 21, 2024: 113.6 kg May 24, 2024: 107.7 kg May 29, 2024: 109.8 kg June 04, 2024: 110 kg June 12, 2024: 114 kg June 19, 2024: 114 kg PATIENT REPORTED SYMPTOM SCREEN FATIGUE (Scale: 0 = no fatigue; 10 = worst fatigue you can imagine): PAIN (Scale: 0 = no pain; 10 = worst pain you can imagine): OVERALL QUALITY OF LIFE (Scale: 0 = as bad as can be; 10 = as good as can be): OBJECTIVE BP 145/89 (BP Location: Right arm, Patient Position: Sitting, Cuff Size: Regular) Pulse 67 Temp36.2 ??C (Temporal) Wt 114 kg BMI 36.06 kg/m?? PHYSICAL EXAM General: Alert and oriented in no apparent distress. Skin: Right side of scalp brisk pink toned. No dryness or desquamation noted. ASSESSMENT / PLAN #1 Right temporal glioblastoma (FACE WORKER who grade 4), IDH negative, MGMT and NGS, pending #2 Status post gross total resection on April 19, 2024 #3 Radiation therapy to right temporal surgical cavity with concurrent Temodar initiated on May 20, 2024; anticipated completion on July 02, 2024 Patient is tolerating treatment with anticipated side effects. Per Dr. Aguilar he should reach out to his Neurologist regarding his steroid dose if headaches worsen on lower dose of Dexamethasone. Discussed with patient that he can take Ondansetron every 8 hours if needed for nausea. He will continue to take Temodar as prescribed. Patient is to apply moisturizing lotion to treatment field twice a day. Social Work continues to be involved in patient's care. We will see patient in weekly management visits. He will contact us with any questions or concerns. We will continue with radiation treatment as planned. Signed by: Reyna Christianson R.N. 06/19/2024 9:58 AM CDT documented in this encounter Plan of Treatment Scheduled Orders Name Type Priority Associated Diagnoses Orde r Schedule Management Visit Radiation Oncology Routine Malignant Neoplasm Of Brain (HCC) Once for 1 Occurrences starting 06/19/2024 until 06/19/2024 documented as of this encounter Visit Diagnoses Diagnosis Malignant Neoplasm Of Brain (HCC) documented in this encounter Additional Health Concerns Infection Onset Date Last Indicated Resolved Time Protective Environment 05/27/2024 05/27/202407/26 5:47 AM CDT documented as of this encounter Care Teams Leather Flesher Relationship Specialty Start Date End Date Elsewhere, Pcp PCP - General Family Medicine 09/09/21 documented as of this encounter
--- OUTSIDE RECORDS SUMMARY | 2024-08-14 14:22 | XMS_ITS | Encounter Summary ---
Author Organization [facility] Address [address] [place] [address] Care Team Providers Care Translation Director Name Role Phone Elsewhere, Pcp Primary Care Provider Unavailabl e Reason for Visit * Radiation Therapy (Routine) - Authorized Specialty Diagnoses / Procedures Referred By Misa dinero Referred To Contact Diagnoses Malignant Neoplasm Of Brain (HCC) Procedures Prior Auth Rad Tx [place] IMRT COMPLEX ME GUIDANCE FOR LOC RAD TX ME IMRT RADIOTHERAPY PLAN Genesis Aguilar M.D. [address] [place] [phone] [facility] Referral ID Status Reason Start Date Expiration Date V isits Requested Visits Authorized [id number] Authorized 05/15/2024 11/26/2024 30 30 Encounter Details Date Type Department Care Team (Latest Contact Info) Description 06/11/2024 9:47 AM CDT - 06/11/2024 11:59 PM CDT Hospital Encounter Department of Radiation Oncology in [place], [place] [address] [place] [phone] Genesis Aguilar M.D. [address] [place] [phone] Discharge Disposition: Home or Self Care Social [...] declined 07/26/2021 How often do you attend gnosticism or taoist serv ices? Patient declined 07/26/2021 Do you belong to any clubs o r organizations such as gnosticism groups, unions, fraternal or athletic groups, or [...] medical care, and heating? Patient declined 07/26/2021 [facility] [place] [facility] - Occupational Stress Questionnaire Answer Date [...] place to sleep or slept in a long term (including now)? Patient refused 07/26/2021 Nutrition Answer [...] documented as of this encounter Care Teams Translation Director Relationship Specialty Start Date End Date Elsewhere, Pcp PCP - General Family Medicine 09/09/21 documented as of this encounter
--- OUTSIDE RECORDS SUMMARY | 2024-08-14 14:22 | XMS_ITS | Encounter Summary ---
Author Organization [facility] Address [address] [place] [address] Care Team Providers Care Electric Plater Name Role Phone Elsewhere, Pcp Primary Care Provider Unavailabl e Reason for Referral * Radiation Therapy (Routine) - Authorized Specialty Diagnoses / Procedures Referred By Misa dinero Referred To Contact Diagnoses Malignant Neoplasm Of Brain (HCC) Procedures Management Visit Genesis Aguilar M.D. [address] [place] [address] [facility] Region Referral ID Status Reason Start Date Expiration Date V isits Requested Visits Authorized [id number] Authorized 05/03/2024 05/03/2025 10 10 Reason for Visit * Radiation Therapy (Routine) - Authorized Specialty Diagnoses / Procedures Referred By Misa dinero Referred To Contact Diagnoses Malignant Neoplasm Of Brain (HCC) Procedures Management Visit Genesis Aguilar M.D. [address] [place] [address] [facility] Region Referral ID Status Reason Start Date Expiration Date V isits Requested Visits Authorized [id number] Authorized 05/03/2024 05/03/2025 10 10 Encounter Details Date Type Department Care Team (Latest Contact Info) Description 06/12/2024 9:44 AM CDT - 06/12/2024 12:55 PM CDT Hospital Encounter Department of Radiation Oncology in [place], [place] [address] [place] [phone] Genesis Aguilar M.D. [address] [place] [address] Malignant Neoplasm Of Brain (HCC) Social History [...] declined 07/26/2021 How often do you attend uatsdin or yarsani serv ices? Patient declined 07/26/2021 Do you belong to any clubs o r organizations such as uatsdin groups, unions, fraternal or athletic groups, or [...] medical care, and heating? Patient declined 07/26/2021 [facility] - Occupational [...] place to sleep or slept in a care home (including now)? Patient refused 07/26/2021 Nutrition [...] Sign Reading Time Taken Comments Blood Pressure 131/69 06/12/2024 10:26 AM CDT Pulse 79 06/12/2024 10:26 AM CDT Temperature 36.3 ??C (97.3 ??F) 06/12/2024 10:26 AM C DT Respiratory Rate - - Oxygen Saturation - - Inhaled Oxygen Concentration - - Weight 114 kg (250 lb 10.6 oz) 06/12/2024 10:26 AM CDT Height - - Body Mass Index 35.97 10/08/2021 3:55 PM PULP MAKER documented in this encounter Medications at Time [...] mouth at bedtime. 04/29/2024 miscellaneous medical supply [facility] CPAP machine for home use at pressure: [...] Progress Notes * Genesis Aguilar M.D. - 06/12/2024 10:30 AM CDT ATTESTATION FOR MANAGEMENT VISIT I saw and evaluated the patient and participated in the sargent portions of the service as noted below.I reviewed the documentation of Ms. Jessica Arevalo RN and agree with the findings and plan. The patient appears well on exam. We will continue with radiation as planned and monitor weekly. Genesis Aguilar M.D., 06/12/2024 SUBJECTIVE REASON FOR VISIT Evaluation for side [...] (cGy) First Treatment Last Treatment Elapsed Days [id number] 200 3200 6000 05/20/2024 06/12/2024 Course Summary 05/20/2024 06/12/2024 The patient was seen and examined today with Dr. Aguilar. Patient is now taking increased dose of 6 mg of Dexamethasone in the mornings per [facility] recommendations. Patient reports improvement in his headaches now. Patient reports that radiation treatment mask adjustment has greatly improved his tolerance of mask. He continues to take pre treatment Ativan. He denies nausea, vomiting, vision changes, hearing changes, dizziness, falls or new symptoms. He is not applying lotion to treatment field area. Weight May 21, 2024: 113.6 kg May 24, 2024: 107.7 kg May 29, 2024: 109.8 kg June 04, 2024: 110 kg June 12, 2024: 114 kg PATIENT REPORTED SYMPTOM SCREEN FATIGUE (Scale: 0 = no fatigue; 10 = worst fatigue you can imagine): PAIN (Scale: 0 = no pain; 10 = worst pain you can imagine): OVERALL QUALITY OF LIFE (Scale: 0 = as bad as can be; 10 = as good as can be): OBJECTIVE BP 131/69 (BP Location: Right arm, Patient Position: Sitting, Cuff Size: Regular) Pulse 79 Temp36.3 ??C (Temporal) Wt 114 kg BMI 35.97 kg/m?? PHYSICAL EXAM General: Alert and oriented in no apparent distress. Skin: Right side of scalp brisk pink toned. 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 Patient missed radiation treatment on June 10 due to anxiety withlaying flat on table with mask. Mask adjustment was made. Patient will now complete radiation therapy on July 02 instead to make up for missed treatment on June 10. Dr. Ryder's care teamhas prescribed Naltrexone to help reduce alcohol cravings. Dr. Ryder's care team confirmed patient is to be taking Temodar prescription daily through the weekends while undergoing radiation therapy. Patient is to apply moisturizing lotion to treatment field area twice a day. Social Work continues to be involved in patient's care. We will see patient in weekly management visits. He will contact us with any questions or concerns. We will continue with radiation treatment as planned. Signed by: Jessica Arevalo R.N. 06/12/2024 11:40 AM CDT documented in this encounter Plan of Treatment Scheduled Orders Name Type Priority Associated Diagnoses Orde r Schedule Management Visit Radiation Oncology Routine Malignant Neoplasm Of Brain (HCC) Once for 1 Occurrences starting 06/12/2024 until 06/12/2024 documented as of this encounter Visit Diagnoses Diagnosis Malignant Neoplasm Of Brain (HCC) documented in this encounter Additional Health Concerns Infection Onset Date Last Indicated Resolved Time Protective Environment 05/27/2024 05/27/202407/26 5:47 AM CDT documented as of this encounter Care Teams Electric Plater Relationship Specialty Start Date End Date Elsewhere, Pcp PCP - General Family Medicine 09/09/21 documented as of this encounter
--- OUTSIDE RECORDS SUMMARY | 2024-08-14 14:22 | XMS_ITS | Encounter Summary ---
Author Organization [facility] Address [address] [place] [address] Care Team Providers Care Employment And Claims Aide Name Role Phone Elsewhere, Pcp Primary Care Provider Unavailabl e Reason for Visit * Radiation Therapy (Routine) - Authorized Specialty Diagnoses / Procedures Referred By Misa dinero Referred To Contact Diagnoses Malignant Neoplasm Of Brain (HCC) Procedures Prior Auth Rad Tx [place] IMRT COMPLEX [place] GUIDANCE FOR [place] RAD [place] IMRT RADIOTHERAPY PLAN Genesis Aguilar M.D. [address] [place] [phone] [facility] Referral ID Status Reason Start Date Expiration Date V isits Requested Visits Authorized [id number] Authorized 05/15/2024 11/26/2024 30 30 Encounter Details Date Type Department Care Team (Latest Contact Info) Description 06/18/2024 9:49 AM CDT - 06/18/2024 11:59 PM CDT Hospital Encounter Department of Radiation Oncology in [place], [place] [address] [place] [phone] Genesis Aguilar M.D. [address] [place] [phone] Discharge Disposition: Home or Self Care Social [...] declined 07/26/2021 How often do you attend hinduism or zoroastrian serv ices? Patient declined 07/26/2021 Do you belong to any clubs o r organizations such as hinduism groups, unions, fraternal or athletic groups, or [...] medical care, and heating? Patient declined 07/26/2021 [facility] - Occupational Stress Questionnaire Answer [...] place to sleep or slept in a prison (including now)? Patient refused 07/26/2021 Nutrition Answer [...] mouth at bedtime. 04/29/2024 miscellaneous medical supply [facility] CPAP machine for home use at pressure: [...] documented as of this encounter Care Teams Employment And Claims Aide Relationship Specialty Start Date End Date Elsewhere, Pcp PCP - General Family Medicine 09/09/21 documented as of this encounter
--- OUTSIDE RECORDS SUMMARY | 2024-08-14 14:22 | XMS_ITS | Encounter Summary ---
Author Organization [facility] Address [address] [place] [address] Care Team Providers Care Electric Motor Assembler Name Role Phone Elsewhere, Pcp Primary Care Provider Unavailabl e Reason for Visit * Radiation Therapy (Routine) - Authorized Specialty Diagnoses / Procedures Referred By Misa dinero Referred To Contact Diagnoses Malignant Neoplasm Of Brain (HCC) Procedures Prior Auth Rad Tx [place] IMRT COMPLEX [place] GUIDANCE FOR LOC RAD [place] IMRT RADIOTHERAPY PLAN Genesis Aguilar M.D. [address] [place] [phone] [facility] Referral ID Status Reason Start Date Expiration Date V isits Requested Visits Authorized [id number] Authorized 05/15/2024 11/26/2024 30 30 Encounter Details Date Type Department Care Team (Latest Contact Info) Description 06/13/2024 9:40 AM CDT - 06/13/2024 11:59 PM CDT Hospital Encounter Department of Radiation Oncology in [place], [place] [address] [place] [phone] Genesis Aguilar M.D. [address] [place] [phone] Discharge Disposition: Home or Self Care Social [...] declined 07/26/2021 How often do you attend holiness or methodist serv ices? Patient declined 07/26/2021 Do you belong to any clubs o r organizations such as holiness groups, unions, fraternal or athletic groups, or [...] medical care, and heating? Patient declined 07/26/2021 [facility] - Occupational Stress Questionnaire Answer [...] mouth at bedtime. 04/29/2024 miscellaneous medical supply [facility] CPAP machine for home use at pressure: [...] as of this encounter Care Teams Electric Motor Assembler Relationship Specialty Start Date End Date Elsewhere, Pcp PCP - General Family Medicine 09/09/21 documented as of this encounter
--- OUTSIDE RECORDS SUMMARY | 2024-08-14 14:22 | XMS_ITS | Encounter Summary ---
Author Organization [facility] Address [address] [place] [address] Care Team Providers Care Shuttle Van Driver Name Role Phone Elsewhere, Pcp Primary Care Provider Unavailabl e Reason for Visit * Radiation Therapy (Routine) - Authorized Specialty Diagnoses / Procedures Referred By Misa dinero Referred To Contact Diagnoses Malignant Neoplasm Of Brain (HCC) Procedures Prior Auth Rad Tx [place] IMRT COMPLEX [place] GUIDANCE FOR LOC RAD TX [place] IMRT RADIOTHERAPY PLAN Genesis Aguilar M.D. [address] [place] [phone] [facility] Referral ID Status Reason Start Date Expiration Date V isits Requested Visits Authorized [id number] Authorized 05/15/2024 11/26/2024 30 30 Encounter Details Date Type Department Care Team (Latest Contact Info) Description 06/17/2024 9:40 AM CDT - 06/17/2024 11:59 PM CDT Hospital Encounter Department of Radiation Oncology in [place], [place] [address] [place] [phone] Genesis Aguilar M.D. [address] [place] [phone] Discharge Disposition: Home or Self Care Social [...] declined 07/26/2021 How often do you attend jain or mandaen serv ices? Patient declined 07/26/2021 Do you belong to any clubs o r organizations such as jain groups, unions, fraternal or athletic groups, or [...] medical care, and heating? Patient declined 07/26/2021 [facility] - Occupational Stress Questionnaire Answer [...] place to sleep or slept in a long-term (including now)? Patient refused 07/26/2021 Nutrition Answer [...] 04/29/2024 miscellaneous medical supply [facility] [place]AP [place] for home use at pressure: [...] documented as of this encounter Care Teams Shuttle Van Driver Relationship Specialty Start Date End Date Elsewhere, Pcp PCP - General Family Medicine 09/09/21 documented as of this encounter
--- OUTSIDE RECORDS SUMMARY | 2024-08-14 14:22 | XMS_ITS | Encounter Summary ---
Author Organization [facility] Address [address] [place] [address] Care Team Providers Care It Infrastructure Engineer Name Role Phone Elsewhere, Pcp Primary Care Provider Unavailabl e Reason for Visit * Radiation Therapy (Routine) - Authorized Specialty Diagnoses / Procedures Referred By Misa dinero Referred To Contact Diagnoses Malignant Neoplasm Of Brain (HCC) Procedures Prior Auth Rad Tx [place] IMRT COMPLEX [place] GUIDANCE FOR [place] RAD [place] IMRT RADIOTHERAPY PLAN Genesis Aguilar M.D. [address] [place] [phone] [facility] Referral ID Status Reason Start Date Expiration Date V isits Requested Visits Authorized [id number] Authorized 05/15/2024 11/26/2024 30 30 Encounter Details Date Type Department Care Team (Latest Contact Info) Description 06/19/2024 9:14 AM CDT - 06/19/2024 11:59 PM CDT Hospital Encounter Department of Radiation Oncology in [place], [place] [address] [place] [phone] Genesis Aguilar M.D. [address] [place] [phone] Discharge Disposition: Home or Self Care Social [...] declined 07/26/2021 How often do you attend judaism or church serv ices? Patient declined 07/26/2021 Do you belong to any clubs o r organizations such as judaism groups, unions, fraternal or athletic groups, or [...] medical care, and heating? Patient declined 07/26/2021 [facility] - Occupational Stress [...] mouth at bedtime. 04/29/2024 miscellaneous medical supply [facility] CPAP machine for home [...] documented as of this encounter Care Teams It Infrastructure Engineer Relationship Specialty Start Date End Date Elsewhere, Pcp PCP - General Family Medicine 09/09/21 documented as of this encounter
--- OUTSIDE RECORDS SUMMARY | 2024-08-14 14:22 | XMS_ITS | Encounter Summary ---
Author Organization [facility] Address [address] [place] [address] Care Team Providers Care Tool Drawing Checker Name Role Phone Elsewhere, Pcp Primary Care Provider Unavailabl e Reason for Visit * Radiation Therapy (Routine) - Authorized Specialty Diagnoses / Procedures Referred By Misa dinero Referred To Contact Diagnoses Malignant Neoplasm Of Brain (HCC) Procedures Prior Auth Rad Tx [place] IMRT COMPLEX [place] GUIDANCE FOR LOC RAD TX [place] IMRT RADIOTHERAPY PLAN Genesis Aguilar M.D. [address] [place] [phone] [facility] Referral ID Status Reason Start Date Expiration Date V isits Requested Visits Authorized [id number] Authorized 05/15/2024 11/26/2024 30 30 Encounter Details Date Type Department Care Team (Latest Contact Info) Description 06/14/2024 9:43 AM CDT - 06/14/2024 11:59 PM CDT Hospital Encounter Department of Radiation Oncology in [place], [place] [address] [place] [phone] Genesis Aguilar M.D. [address] [place] [phone] Discharge Disposition: Home or Self Care Social [...] declined 07/26/2021 How often do you attend yazidi or latter day serv ices? Patient declined 07/26/2021 Do you belong to any clubs o r organizations such as yazidi groups, unions, fraternal or athletic groups, or [...] medical care, and heating? Patient declined 07/26/2021 [facility] - Occupational Stress Questionnaire Answer Date [...] mouth at bedtime. 04/29/2024 miscellaneous medical supply [facility] [place] for [place] [...] documented as of this encounter Care Teams Tool Drawing Checker Relationship Specialty Start Date End Date Elsewhere, Pcp PCP - General Family Medicine 09/09/21 documented as of this encounter
--- OUTSIDE RECORDS SUMMARY | 2024-08-14 14:22 | XMS_ITS | Encounter Summary ---
Author Organization [facility] Address [address] [place] [address] Care Team Providers Care Gaming Cage Worker Name Role Phone Elsewhere, Pcp Primary Care Provider Unavailabl e Reason for Visit * Radiation Therapy (Routine) - Authorized Specialty Diagnoses / Procedures Referred By Misa dinero Referred To Contact Diagnoses Malignant Neoplasm Of Brain (HCC) Procedures Prior Auth Rad Tx [place] IMRT COMPLEX [place] GUIDANCE FOR LOC RAD TX [place] IMRT RADIOTHERAPY PLAN Genesis Aguilar M.D. [address] [place] [phone] [facility] Referral ID Status Reason Start Date Expiration Date V isits Requested Visits Authorized [id number] Authorized 05/15/2024 11/26/2024 30 30 Encounter Details Date Type Department Care Team (Latest Contact Info) Description 06/20/2024 9:36 AM CDT - 06/20/2024 11:59 PM CDT Hospital Encounter Department of Radiation Oncology in [place], [place] [address] [place] [phone] Genesis Aguilar M.D. [address] [place] [phone] Discharge Disposition: Home or Self Care Social [...] declined 07/26/2021 How often do you attend anabaptist or christianity serv ices? Patient declined 07/26/2021 Do you belong to any clubs o r organizations such as anabaptist groups, unions, fraternal or athletic groups, or [...] medical care, and heating? Patient declined 07/26/2021 [facility] - Occupational Stress Questionnaire Answer Date [...] place to sleep or slept in a fpc (including now)? Patient refused 07/26/2021 Nutrition Answer [...] mouth at bedtime. 04/29/[address] [facility] [place] for home use at pressure: [...] documented as of this encounter Care Teams Gaming Cage Worker Relationship Specialty Start Date End Date Elsewhere, Pcp PCP - General Family Medicine 09/09/21 documented as of this encounter
--- OUTSIDE RECORDS SUMMARY | 2024-08-14 14:23 | XMS_ITS | Encounter Summary ---
Author Organization [facility] Address [address] [place] [address] Care Team Providers Care Ground Crewman Name Role Phone Elsewhere, Pcp Primary Care Provider Unavailabl e Reason for Visit * Radiation Therapy (Routine) - Authorized Specialty Diagnoses / Procedures Referred By iMsa dinero Referred To Contact Diagnoses Malignant Neoplasm Of Brain (HCC) Procedures Prior Auth Rad Tx [place] IMRT COM[place]X [place] GUIDANCE FOR [place] RAD [place] IMRT RADIOTHERAPY PLAN Genesis Aguilar M.D. [address] [place] [phone] [facility] Referral ID Status Reason Start Date Expiration Date V isits Requested Visits Authorized [id number] Authorized 05/15/2024 11/26/2024 30 30 Encounter Details Date Type Department Care Team (Latest Contact Info) Description 06/07/2024 9:46 AM CDT - 06/07/2024 11:59 PM CDT Hospital Encounter Department of Radiation Oncology in [place], [place] [address] [place] [phone] Genesis Aguilar M.D. [address] [place] [phone] Discharge Disposition: Home or Self Care Social [...] How often do you attend restorationism or hindu serv ices? Patient declined 07/26/2021 Do you [...] medical care, and heating? Patient declined 07/26/2021 [facility] - Occupational Stress Questionnaire Answer Date Recorded [...] place to sleep or slept in a [place] health care facility (including now)? Patient refused 07/26/2021 Nutrition Answer [...] mouth at bedtime. 04/29/2024 miscellaneous medical supply [facility] CPAP machine for [...] documented as of this encounter Care Teams Ground Crewman Relationship Specialty Start Date End Date Elsewhere, Pcp PCP - General Family Medicine 09/09/21 documented as of this encounter
--- OUTSIDE RECORDS SUMMARY | 2024-08-14 14:23 | XMS_ITS | Encounter Summary ---
Author Organization [facility] Address [address] [place] [address] Care Team Providers Care Tool Machine Shop Supervisor Name Role Phone Elsewhere, Pcp Primary Care Provider Unavailabl e Reason for Referral * Outpatient (Routine) - Authorized Specialty Diagnoses / Procedures Referred By Contac t Referred To Contact Radiation Oncology Genesis Aguilar M.D. [address] [place] [phone] [facility] Region Referral ID Status Reason Start Date Expiration Date V isits Requested Visits Authorized [id number] Authorized 05/23/2024 11/22/2025 5 5 Reason for Visit * Outpatient (Routine) - Authorized Specialty Diagnoses / Procedures Referred By Misa dinero Referred To Contact Radiation Oncology Genesis Aguilar M.D. [address] [place] [phone] [facility] Region Referral ID Status Reason Start Date Expiration Date V isits Requested Visits Authorized [id number] Authorized 05/23/2024 11/22/2025 5 5 Encounter Details Date Type Department Care Team (Latest Contact Info) Description 05/27/2024 9:30 AM CDT - 05/27/2024 9:44 AM CDT Hospital Encounter Department of Radiation Oncology in [place], [place] [address] [place] [phone] Genesis Aguilar M.D. [address] [place] [phone] Jessica Arevalo R.N. [address] [place] [address] Malignant Neoplasm Of Brain (HCC) (Primary Dx) [...] declined 07/26/2021 How often do you attend baptism or yazidism serv ices? Patient declined 07/26/2021 Do you belong to any clubs o r organizations such as baptism groups, unions, fraternal or athletic groups, or [...] medical care, and heating? Patient declined 07/26/2021 [facility] of Occupat ional Health - Occupational Stress [...] mouth at bedtime. 04/29/2024 miscellaneous medical supply [facility] CPAP machine for home use [...] Progress Notes * Jessica Arevalo, RJudyN. - 05/27/2024 9:30 AM CDT SUBJECTIVE REASON FOR VISIT Evaluation for side effects while receiving radiation treatment Nurse visit SUPERVISED BY: Genesis Aguilar M.D. HISTORY OF PRESENT ILLNESS Eleuterio Tafoya is a 49 y.o. 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 Patient is now undergoing radiation therapy concurrent with Temodar. The patient reports that he brought blood pressure medication to today's appointment instead of hisAtivan. He is requesting dose of Ativan. Patient confirms that he has not had alcohol today. Patient confirms that he has a vibratory pile driver today to assist with transportation. Patient denies fevers, chills, n ausea, vomiting or new symptoms. OBJECTIVE There were no vitals taken for this visit. PHYSICAL EXAM General: Alert and oriented in no apparent distress. ASSESSMENT / PLAN I have reviewed today's visit with Dr. Aguilar today. Dr. Aguilar has signed off on administering 1 mg of Ativan on site today. Patient has been advised to take his prescribed Ativan pre treatments. Patient is to avoid alcohol. Patient is not to drive for 6 hours after taking Ativan. I administered 1mg of Ativan to patient here in clinic today. He will contact us with any questions or concerns. Sonali continue with radiation treatment as planned. Signed by: Jessica Arevalo R.N. 05/27/2024 2:12 PM CDT documented in this encounter Plan of Treatment Scheduled Referrals Name Type Priority Associated Diagnoses Order Schedule Radiation Oncology nurse visit (clinic) Outpatient Referral Routine Once for 1 Occurrences starting 05/27/2024 until 05/27/2024 documented as of this encounter Visit Diagnoses Diagnosis Malignant Neoplasm Of Brain (HCC)- Primary documented in this encounter Administered Medications Inactive Administered Medications - up to 3 most recent administrations Medication Order MAR Action Action Date Dose Rate Site LORazepam tablet 1 mg (Ativan) 1 mg, oral, Once, On 05/27/24 at 1115, For 1 dose Given 05/27/2024 10:00 AM CDT 1 mg Mouth documented in this encounter Additional Health Concerns Infection Onset Date Last Indicated Resolved Time Protective Environment 05/27/2024 05/27/202407/26 5:47 AM CDT documented as of this encounter Care Teams Tool Machine Shop Supervisor Relationship Specialty Start Date End Date Elsewhere, Pcp PCP - General Family Medicine 09/09/21 documented as of this encounter
--- OUTSIDE RECORDS SUMMARY | 2024-08-14 14:23 | XMS_ITS | Encounter Summary ---
Author Organization [facility] Address [address] [place] [address] Care Team Providers Care Show Worker Name Role Phone Elsewhere, Pcp Primary Care Provider Unavailabl e Reason for Referral * Radiation Therapy (Routine) - Authorized Specialty Diagnoses / Procedures Referred By Misa garcia Referred To Contact Diagnoses Malignant Neoplasm Of Brain (HCC) Procedures Management Visit Genesis Aguilar M.D. [address] [place] [phone] [facility] Region Referral ID Status Reason Start Date Expiration Date V isits Requested Visits Authorized [id number] Authorized 05/03/2024 05/03/2025 10 10 Reason for Visit * Radiation Therapy (Routine) - Authorized Specialty Diagnoses / Procedures Referred By Misa garcia Referred To Contact Diagnoses Malignant Neoplasm Of Brain (HCC) Procedures Management Visit Genesis Aguilar M.D. [address] [place] [address] [facility] Region Referral ID Status Reason Start Date Expiration Date V isits Requested Visits Authorized [id number] Authorized 05/03/2024 05/03/2025 10 10 Encounter Details Date Type Department Care Team (Latest Contact Info) Description 06/04/2024 9:54 AM CDT - 06/04/2024 6:14 PM CDT Hospital Encounter Department of Radiation Oncology in [place], [place] [address] [place] [phone] Jeovanny Khalil M.D. [address] [place] [phone] Malignant Neoplasm Of Brain (HCC) Social History [...] declined 07/26/2021 How often do you attend catholic or sabianist serv ices? Patient declined 07/26/2021 Do you belong to any clubs o r organizations such as catholic groups, unions, fraternal or athletic groups, or [...] medical care, and heating? Patient declined 07/26/2021 [facility] of Occupat ional Health - Occupational [...] place to sleep or slept in a senior care (including now)? Patient refused 07/26/2021 Nutrition Answer [...] Sign Reading Time Taken Comments Blood Pressure 118/71 06/04/2024 10:37 AM CDT Pulse 91 06/04/2024 10:37 AM CDT Temperature - - Respiratory Rate - - Oxygen Saturation - - Inhaled Oxygen Concentration - - Weight 110 kg (242 lb 8.1 oz) 06/04/2024 10:37 A M CDT Height - - Body Mass Index 34.8 10/08/2021 3:55 PM TIMBER MANAGEMENT SPECIALIST documented in this encounter Medications at Time [...] mouth at bedtime. 04/29/2024 [facility] for home use at pressure: [...] as of this encounter Progress Notes * Jeovanny Khalil M.D. - 06/04/2024 10:30 AM CDT SUBJECTIVE REASON FOR VISIT Evaluation for side effects while receiving radiation treatment for 1. Malignant Neoplasm Of Brain (HCC) SUPERVISED BY: Dr. Khalil HISTORY OF PRESENT ILLNESS Eleuterio Tafoya is a 49 y.o. 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 Patient is now undergoing radiation therapy concurrent with Temodar. Treatment Course: 1xBrain Plan ID Fractions Dose / Fraction (cGy) Dose Treated (cGy) Dose Planned (cGy) First Treatment Last Treatment Elapsed Days [id number] 200 2200 6000 05/20/2024 06/04/2024 15 Course Summary 05/20/2024 06/04/2024 15 The patient was seen and examined today with Dr. Khalil. The patient reports intermittent headache improved yesterday. Patient is taking Advil for management of headache. Patient reports that his primary care provider had prescribed, Naltrexone but was instructed to hold when on Temodar. He is taking Temodar daily. Patient reports that he recently re started Naltrexone. Patient states that Naltrexone manages depression well for him. Patient also takes Ativan pre radiation treatments. Patient denies fevers, chills, nausea, vomiting, seizures. He is experiencing fatigue. Patient reports that he has not been drinking alcohol recently. Patient reports weight loss. Weight May 21, 2024: 113.6 kg May 24, 2024: 107.7 kg May 29, 2024: 109.8 kg June 04, 2024: 110 kg PATIENT REPORTED SYMPTOM SCREEN FATIGUE (Scale: 0 = no fatigue; 10 = worst fatigue you can imagine): 8 PAIN (Scale: 0 = no pain; 10 = worst pain you can imagine): 6 OVERALL QUALITY OF LIFE (Scale: 0 = as bad as can be; 10 = as good as can be): 7 OBJECTIVE BP 118/71 (BP Location: Right arm, Patient Position: Sitting, Cuff Size: Regular) Pulse 91 Wt 110 kg BMI 34.80 kg/m?? PHYSICAL EXAM General: Alert and oriented in no apparent distress. Skin: Scalp slightly brisk pinkness. 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 Patient has lost 3.6 kg since starting chemoradiotherapy. We discussed small, more frequent snacks/meals through out the day and evening. Patient declined visit with our Ship Erector. We will re check weight next week. Patient's Patient can continue to take Advil for headaches. I will reach out to Dr. Ryder's care team in regards to patient's Temodar prescription. We will see patient in weekly management visits. He will contact us withany questions or concerns. We will continue with radiation treatment as planned. Signed by: Jessica Arevalo R.N. 06/04/2024 10:55 AM CDT I saw and evaluated the patient and participated in the sargent portions of the service. I reviewed thedocumentation of Jessica Arevalo R.N. and agree with the findings and plan. The patient appears well on exam. He is here today with his father. He does report a 29 pounds weight loss in the last few weeks; however, I can only account for a 3.6 kg weight loss by our measurements. Encouraged him to increase his nutritional intake, especially with regard to protein. He is taking his temozolomide through the weekends. We will connect with his medical oncology team be sure that this is highly prescribed it and if not leave it to them for adjustments or refills. He is tolerating treatment well aside from fatigue which I reassured him is common and anticipated. He will continue with treatment as planned. Signed by: Jeovanny Khalil M.D. 06/04/2024 6:13 PM CDT [facility] [address] [place] [address] documented in this encounter Miscellaneous Notes * Addendum Note - Sari Roberson C.N.A. - 06/04/2024 10:30 AM CDTEncounter addended by: Sari Roberson C.N.A. on: 06/05/2024 8:04 AM Actions taken: Letter saved documented in this encounter Plan of Treatment Scheduled Orders Name Type Priority Associated Diagnoses Orde r Schedule Management Visit Radiation Oncology Routine Malignant Neoplasm Of Brain (HCC) Once for 1 Occurrences starting 06/04/2024 until 06/04/2024 documented as of this encounter Visit Diagnoses Diagnosis Malignant Neoplasm Of Brain (HCC) documented in this encounter Additional Health Concerns Infection Onset Date Last Indicated Resolved Time Protective Environment 05/27/2024 05/27/202407/26 5:47 AM CDT documented as of this encounter Care Teams Show Worker Relationship Specialty Start Date End Date Elsewhere, Pcp PCP - General Family Medicine 09/09/21 documented as of this encounter
--- OUTSIDE RECORDS SUMMARY | 2024-08-14 14:23 | XMS_ITS | Encounter Summary ---
Author Organization [facility] Address [address] [place] [address] Care Team Providers Care Communications Program Manager Name Role Phone Elsewhere, Pcp Primary Care Provider Unavailabl e Reason for Visit * Radiation Therapy (Routine) - Authorized Specialty Diagnoses / Procedures Referred By Misa dinero Referred To Contact Diagnoses Malignant Neoplasm Of Brain (HCC) Procedures Prior Auth Rad Tx DC IMRT COMPLEX DC GUIDANCE FOR LOC RAD TX DC IMRT RADIOTHERAPY PLAN Genesis Aguilar M.D. [address] [place] [phone] [facility] Referral ID Status Reason Start Date Expiration Date V isits Requested Visits Authorized [id number] Authorized 05/15/2024 11/26/2024 30 30 Encounter Details Date Type Department Care Team (Latest Contact Info) Description 05/28/2024 9:33 AM CDT - 05/28/2024 11:59 PM CDT Hospital Encounter Department of Radiation Oncology in [place], [place] [address] [place] [phone] Genesis Aguilar M.D. [address] [place] [phone] Discharge Disposition: Home or Self Care Social [...] How often do you attend jain or episcopal serv ices? Patient declined 07/26/2021 [...] 07/26/2021 [facility] - Occupational Stress Questionnaire Answer Date [...] mouth at bedtime. 04/29/2024 miscellaneous medical supply [facility] CPAP machine for home use at pressure: [...] documented as of this encounter Care Teams Communications Program Manager Relationship Specialty Start Date End Date Elsewhere, Pcp PCP - General Family Medicine 09/09/21 documented as of this encounter
--- OUTSIDE RECORDS SUMMARY | 2024-08-14 14:23 | XMS_ITS | Encounter Summary ---
Author Organization [facility] Address [address] [place] [address] Care Team Providers Care Mold Cutting Machine Operator Name Role Phone Elsewhere, Pcp Primary Care Provider Unavailabl e Reason for Visit * Radiation Therapy (Routine) - Authorized Specialty Diagnoses / Procedures Referred By Misa dinero Referred To Contact Diagnoses Malignant Neoplasm Of Brain (HCC) Procedures Prior Auth Rad Tx AL IMRT COMPLEX AL GUIDANCE FOR LOC RAD TX AL IMRT RADIOTHERAPY PLAN Genesis Aguilar M.D. [address] [place] [phone] [facility] Referral ID Status Reason Start Date Expiration Date V isits Requested Visits Authorized [id number] Authorized 05/15/2024 11/26/2024 30 30 Encounter Details Date Type Department Care Team (Latest Contact Info) Description 05/29/2024 9:58 AM CDT - 05/29/2024 11:59 PM CDT Hospital Encounter Department of Radiation Oncology in [place], [place] [address] [place] [phone] Genesis Aguilar M.D. [address] [place] [phone] Discharge Disposition: Home or Self Care Social [...] declined 07/26/2021 How often do you attend spiritism or amish serv ices? Patient declined 07/26/2021 Do you belong to any clubs o r organizations such as spiritism groups, unions, fraternal or athletic groups, or [...] medical care, and heating? Patient declined 07/26/2021 [facility] - Occupational Stress Questionnaire Answer Date [...] mouth at bedtime. 04/29/2024 miscellaneous medical supply [facility] [place]AP [...] documented as of this encounter Care Teams Mold Cutting Machine Operator Relationship Specialty Start Date End Date Elsewhere, Pcp PCP - General Family Medicine 09/09/21 documented as of this encounter
--- OUTSIDE RECORDS SUMMARY | 2024-08-14 14:23 | XMS_ITS | Encounter Summary ---
Author Organization [facility] Address [address] [place] [address] Care Team Providers Care Dental Office Coordinator Name Role Phone Elsewhere, Pcp Primary Care Provider Unavailabl e Reason for Visit * Radiation Therapy (Routine) - Authorized Specialty Diagnoses / Procedures Referred By Misa dinero Referred To Contact Diagnoses Malignant Neoplasm Of Brain (HCC) Procedures Prior Auth Rad Tx MA IMRT COMPLEX MA GUIDANCE FOR LOC RAD TX MA IMRT RADIOTHERAPY PLAN Genesis Aguilar M.D. [address] [place] [phone] [facility] Referral ID Status Reason Start Date Expiration Date V isits Requested Visits Authorized [id number] Authorized 05/15/2024 11/26/2024 30 30 Encounter Details Date Type Department Care Team (Latest Contact Info) Description 05/31/2024 10:13 AM CDT - 05/31/2024 11:59 PM CDT Hospital Encounter Department of Radiation Oncology in [place], [place] [address] [place] [phone] Genesis Aguilar M.D. [address] [place] [phone] Discharge Disposition: Home or Self Care Social [...] declined 07/26/2021 How often do you attend presybeterian or mosque serv ices? Patient declined 07/26/2021 Do you belong to any clubs o r organizations such as presybeterian groups, unions, fraternal or athletic groups, or [...] medical care, and heating? Patient declined 07/26/2021 [facility] - Occupational Stress Questionnaire Answer Date [...] mouth at bedtime. 04/29/2024 miscellaneous medical supply [facility] CPAP machine for home use [...] documented as of this encounter Care Teams Dental Office Coordinator Relationship Specialty Start Date End Date Elsewhere, Pcp PCP - General Family Medicine 09/09/21 documented as of this encounter
--- OUTSIDE RECORDS SUMMARY | 2024-08-14 14:23 | XMS_ITS | Encounter Summary ---
Author Organization [facility] Address [address] [place] [address] Care Team Providers Care Wedger Machine Name Role Phone Elsewhere, Pcp Primary Care Provider Unavailabl e Reason for Visit * Radiation Therapy (Routine) - Authorized Specialty Diagnoses / Procedures Referred By Misa dinero Referred To Contact Diagnoses Malignant Neoplasm Of Brain (HCC) Procedures Prior Auth Rad Tx IA IMRT COMPLEX IA GUIDANCE FOR LOC RAD TX IA IMRT RADIOTHERAPY PLAN Genesis Aguilar M.D. [address] [place] [phone] [facility] Referral ID Status Reason Start Date Expiration Date V isits Requested Visits Authorized [id number] Authorized 05/15/2024 11/26/2024 30 30 Encounter Details Date Type Department Care Team (Latest Contact Info) Description 06/03/2024 10:00 AM CDT - 06/03/2024 11:59 PM CDT Hospital Encounter Department of Radiation Oncology in [place], [place] [address] [place] [phone] Genesis Aguilar M.D. [address] [place] [phone] Discharge Disposition: Home or Self Care Social [...] declined 07/26/2021 How often do you attend restoration or advent serv ices? Patient declined 07/26/2021 Do you belong to any clubs o r organizations such as restoration groups, unions, fraternal or athletic groups, or [...] 07/26/2021 [facility] - Occupational Stress Questionnaire Answer Date [...] place to sleep or slept in a penitentiary (including now)? Patient refused 07/26/2021 Nutrition Answer [...] mouth at bedtime. 04/29/2024 miscellaneous medical supply [facility] CPAP machine for home [...] documented as of this encounter Care Teams Wedger Machine Relationship Specialty Start Date End Date Elsewhere, Pcp PCP - General Family Medicine 09/09/21 documented as of this encounter
--- OUTSIDE RECORDS SUMMARY | 2024-08-14 14:23 | XMS_ITS | Encounter Summary ---
Author Organization [facility] Address [address] [place] [address] Care Team Providers Care Shellfish Processing Laborer Name Role Phone Elsewhere, Pcp Primary Care Provider Unavailabl e Reason for Visit * Radiation Therapy (Routine) - Authorized Specialty Diagnoses / Procedures Referred By Misa dinero Referred To Contact Diagnoses Malignant Neoplasm Of Brain (HCC) Procedures Prior Auth Rad Tx [place] IMRT COMPLEX [place] GUIDANCE FOR LOC RAD TX AK IMRT RADIOTHERAPY PLAN Genesis Aguilar M.D. [address] [place] [phone] [facility] Referral ID Status Reason Start Date Expiration Date V isits Requested Visits Authorized [id number] Authorized 05/15/2024 11/26/2024 30 30 Encounter Details Date Type Department Care Team (Latest Contact Info) Description 06/05/2024 9:43 AM CDT - 06/05/2024 11:59 PM CDT Hospital Encounter Department of Radiation Oncology in [place], [place] [address] [place] [phone] Genesis Aguilar M.D. [address] [place] [phone] Discharge Disposition: Home or Self Care Social [...] declined 07/26/2021 How often do you attend amish or advent serv ices? Patient declined 07/26/2021 Do you belong to any clubs o r organizations such as amish groups, unions, fraternal or athletic groups, or [...] medical care, and heating? Patient declined 07/26/2021 [facility] - Occupational Stress Questionnaire Answer Date [...] mouth at bedtime. 04/29/2024 miscellaneous medical supply [facility] CPAP machine for home use at [...] documented as of this encounter Care Teams Shellfish Processing Laborer Relationship Specialty Start Date End Date Elsewhere, Pcp PCP - General Family Medicine 09/09/21 documented as of this encounter
--- OUTSIDE RECORDS SUMMARY | 2024-08-14 14:23 | XMS_ITS | Encounter Summary ---
Author Organization [facility] Address [address] [place] [address] Care Team Providers Care Boiler Maker Name Role Phone Elsewhere, Pcp Primary Care Provider Unavailabl e Reason for Visit * Radiation Therapy (Routine) - Authorized Specialty Diagnoses / Procedures Referred By Misa dinero Referred To Contact Diagnoses Malignant Neoplasm Of Brain (HCC) Procedures Prior Auth Rad Tx DC IMRT COMPLEX DC GUIDANCE FOR LOC RAD TX DC IMRT RADIOTHERAPY PLAN Genesis Aguilar M.D. [address] [place] [phone] [facility] Referral ID Status Reason Start Date Expiration Date V isits Requested Visits Authorized [id number] Authorized 05/15/2024 11/26/2024 30 30 Encounter Details Date Type Department Care Team (Latest Contact Info) Description 05/27/2024 9:45 AM CDT - 05/27/2024 11:59 PM CDT Hospital Encounter Department of Radiation Oncology in [place], [place] [address] [place] [phone] Genesis Aguilar M.D. [address] [place] [phone] Discharge Disposition: Home or Self Care Social [...] How often do you attend rastafari or zoroastrianism serv ices? Patient declined 07/26/2021 Do you [...] medical care, and heating? Patient declined 07/26/2021 [facility] - [...] mouth at bedtime. 04/29/2024 miscellaneous medical supply [facility] CPAP machine for [...] documented as of this encounter Care Teams Boiler Maker Relationship Specialty Start Date End Date Elsewhere, Pcp PCP - General Family Medicine 09/09/21 documented as of this encounter
--- OUTSIDE RECORDS SUMMARY | 2024-08-14 14:23 | XMS_ITS | Encounter Summary ---
Author Organization [facility] Address [address] [place] [address] Care Team Providers Care Door Hanger Name Role Phone Elsewhere, Pcp Primary Care Provider Unavailabl e Reason for Referral * Outpatient (Routine) - Closed Specialty Diagnoses / Procedures Referred By Misa dinero Referred To Contact Social Work Diagnoses Malignant Neoplasm Of Brain (HCC) Mica Gonzalez M.D. [address] [place] [address] [facility] Referral ID Status Reason Start Date Expiration Date Visits Re quested Visits Authorized [id number] Closed 05/08/2024 11/07/2025 1 1 Reason for Visit * Outpatient (Routine) - Closed Specialty Diagnoses / Procedures Referred By Misa dinero Referred To Contact Social Work Diagnoses Malignant Neoplasm Of Brain (HCC) Mica Gonzalez M.D. [address] [place] [address] [facility] Referral ID Status Reason Start Date Expiration Date Visits Re quested Visits Authorized [id number] Closed 05/08/2024 11/07/2025 1 1 Encounter Details Date Type Department Care Team (Latest Contact Info) Description 05/28/2024 8:50 AM CDT - 05/28/2024 9:32 AM CDT Hospital Encounter Department of Radiation Oncology in [place], [place] [address] [place] [phone] Mica Gonzalez M.D. [address] [place] [address] Amy Ward M.S.W., L.I.C.S.W. [address] [place] [phone] Counseling Phase Of Life Problem (Primary Dx); Malignant Neoplasm Of Brain (HCC) Discharge Disposition: Home or Self Care Social [...] declined 07/26/2021 How often do you attend scientologist or anabaptist serv ices? Patient declined 07/26/2021 Do you belong to any clubs o r organizations such as scientologist groups, unions, fraternal or athletic groups, or [...] medical care, and heating? Patient declined 07/26/2021 [facility] of Occupat ional Health - Occupational Stress [...] place to sleep or slept in a fdc (including now)? Patient refused 07/26/2021 Nutrition Answer [...] at bedtime. 04/29/2024 miscellaneous medical supply [facility] CP[place] for home use at pressure: [...] as of this encounter Progress Notes * Padmini Harris - 05/28/2024 9:00 AM CDT The patient was present for a consult via real-time audio/video technology by Amy Ward on 05/28/24. documented in this encounter Consult Notes * Amy Ward, LKuldeep.C.S.W., M.S.W. - 05/28/2024 9:00 AM CDT Psychosocial Assessment SUBJECTIVE ASSESSMENT INFORMATION Referral Source: Dr. Aguilar Reason for Consult: psychosocial assessment Previous Psychosocial Assessment: No Primary Language: Kinyarwanda Person(s) present during interview: Person(s) Present During Interview: patient and mother and child Legal Decision Maker: Self They were advised of the various topics that will be assessed during this evaluation. They consented to proceed. The information provided in the assessment is based on review of the medical record aswell as the interview. They were advised that the content of this interview will be shared with the health care team. It was discussed that staff are mandated reporters and they reported understanding. HISTORY OF PRESENT ILLNESS Please review EMR for past medical history. Pleasant 49 year old male status post leg amputation with newly diagnosed glioblastoma. Social History Early growth and development: The patient met social and developmental milestones as expected. Citizenship: [place] Citizen Resident Status: [place] Resident Marital Status: Support Systems: mother, father, daughter, friends Psychosocial Risk Factors impacting the patient: chemical dependency SDOH Transportation: SDOH Utilities: SDOH Food Insecurity: SDOH Housing: SDOH Intimate Partner Violence: Current Stressors: Adjustment to Diagnosis and Financial Concerns Coping Skills: Recreational/Leisure Activities and Peer/Social Support Strengths: Strong Support System and Housing Stability Finances/Insurance Income: on disability from work Primary insurance: [facility] CHOICE PLUS Secondary insurance: N/A Prescription Drug Coverage: yes Advance Directives The patient does not have an advance directive. BASELINE FUNCTIONAL STATUS Mobility: requires aide of device Dressing: independent Feeding: independent Bathing: independent Grooming: independent Toileting: independent Shopping: independent Transportation: independent to drive Medication Management: independent Housekeeping: independent Meal Preparation: independent Finances: independent Assistive Devices: prosthesis OBJECTIVE Substance Use Alcohol: yes patient went through treatment at [facility] 1.5 years ago, was sober for 9 months and continues to drink 2 bacardi cokes a day. Caffeine: no Tobacco: no Marijuana: no Illegal drug use: no Mental Health History: Patient has history with depression and anxiety, as well as some trauma history from his amputation. Mental Status: Orientation: Oriented to person, place and time Level of consciousness: Awake and alert Appearance: Age appearing, Obese, and Well-groomed Mood: euthymic and Anxious Affect: Mood-congruent Speech: Within normal limits for volume, rate and tone. Thought content: No abnormality noted Suicide and Safety Risk Assessment: Suicidal: No Homicidal: no ASSESSMENT Discussion: Mr. Tafoya denies having questions or concerns about cancer treatment. Consult conducted via real-time audio/video technology by Di Reeves, M.S.WJudy [facility] to the [facility] in [facility] Social work met with Eleuterio, his daughter, and his mother to complete psychosocial assessment. Introduced Social Work and their role in the outpatient setting. Informed patient and family of Social Work's legal responsibility as a mandated news reporter and what that entails in regards to concern for imminent danger of vulnerable persons. Patient expresses understanding. After some time, patient's mother and daughter left so patient could discuss more opening. He shared a narrative of his journey thus far including his history of leg amputation. He was two years ago, they co-parent well. 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 He is not driving to treatments due to needing to take ativan to get through treatment. He is concerned about finances, will send [employer] to him, [employer] [facility] and refer him to [facility]. Supportive counseling through active and reflective listening was provided regarding the experienceof living with a life-threatening illness and the feelings that may wax and wane throughout treatment. We talked about the stress/distress that often arise following a cancer diagnosis. The patient's thoughts, feelings and experiences around cancer diagnosis and treatment were validated and normalized. Education was provided about the role and availability of Social Work within the Oncology Care Team. Ongoing supportive counseling throughout his cancer center journey at [facility] was offered. he was accepting of the offer. My business card was provided. he was encouraged to reach out with questions concerns or for support prior to our next scheduled appointment. Impression Eleuterio appears to be coping as expected. He does not appear to have healthy coping mechanisms with his drinking. He does deny ever having thoughts of suicide or self harm. He appears to have financialconcerns. He does have good support from his parents and friends. Interventions: Psychosocial Assessment; Education provided about the role of Construction Driller professionals here at [facility]; Supportive Counseling Regarding the experience of Living with a life threatening illness, Reflective Listening, Resilience Promotion PLAN 1. Social work will continue to be available for psychosocial support and resource navigation. Anticipated barriers to the transition of care/plan: none Face to face time (for billing purposes) 60 minutes total time 60 minutes spent in counseling with patient Di Reeves, M.S.W. 05/28/2024 documented in this encounter Plan of Treatment Scheduled Referrals Name Type Priority Associated Diagnoses Order Schedule Social Work - General consult (clinic) Outpatient Referral Routine Malignant Neoplasm Of Brain (HCC) Once for 1 Occurrences starting 05/28/2024 until 05/28/2024 documented as of this encounter Visit Diagnoses Diagnosis Counseling Phase Of Life Problem- Primary Malignant Neoplasm Of Brain (HCC) documented in this encounter Additional Health Concerns Infection Onset Date Last Indicated Resolved Time Protective Environment 05/27/2024 05/27/202407/26 5:47 AM CDT documented as of this encounter Care Teams Door Hanger Relationship Specialty Start Date End Date Elsewhere, Pcp PCP - General Family Medicine 09/09/21 documented as of this encounter
--- OUTSIDE RECORDS SUMMARY | 2024-08-14 14:23 | XMS_ITS | Encounter Summary ---
Author Organization [facility] Address [address] [place] [id number] Care Team Providers Care Supervisor Laboratory Animal Facility Name Role Phone Elsewhere, Pcp Primary Care Provider Unavailabl e Reason for Visit * Radiation Therapy (Routine) - Authorized Specialty Diagnoses / Procedures Referred By Misa dinero Referred To Contact Diagnoses Malignant Neoplasm Of Brain (HCC) Procedures Prior Auth Rad Tx CT IMRT COMPLEX CT GUIDANCE FOR LOC RAD TX CT IMRT RADIOTHERAPY PLAN Genesis Aguilar M.D. [address] [place] [phone] [facility] Referral ID Status Reason Start Date Expiration Date V isits Requested Visits Authorized [id number] Authorized 05/15/2024 11/26/2024 30 30 Encounter Details Date Type Department Care Team (Latest Contact Info) Description 06/06/2024 9:56 AM CDT - 06/06/2024 11:59 PM CDT Hospital Encounter Department of Radiation Oncology in [place], [place] [address] [place] [phone] Genesis Aguilar M.D. [address] [place] [phone] Discharge Disposition: Home or Self Care Social [...] declined 07/26/2021 How often do you attend adventist or mandaen serv ices? Patient declined 07/26/2021 Do you belong to any clubs o r organizations such as adventist groups, unions, fraternal or athletic groups, or [...] medical care, and heating? Patient declined 07/26/2021 [facility] - [facility]ational Stress Questionnaire Answer Date [...] as of this encounter Care Teams Supervisor Laboratory Animal Facility Relationship Specialty Start Date End Date Elsewhere, Pcp PCP - General Family Medicine 09/09/21 documented as of this encounter
--- OUTSIDE RECORDS SUMMARY | 2024-08-14 14:23 | XMS_ITS | Encounter Summary ---
Author Organization [facility] Address [address] [place] [phone] Care Team Providers Care Construction Services Technician Name Role Phone Elsewhere, Pcp Primary Care Provider Unavailabl e Reason for Visit * Radiation Therapy (Routine) - Authorized Specialty Diagnoses / Procedures Referred By Misa dinero Referred To Contact Diagnoses Malignant Neoplasm Of Brain (HCC) Procedures Prior Auth Rad Tx [place] IMRT COMPLEX [place] GUIDANCE FOR LOC RAD TX [place] IMRT RADIOTHERAPY PLAN Genesis Aguilar M.D. [address] [place] [phone] [facility] Referral ID Status Reason Start Date Expiration Date V isits Requested Visits Authorized [id number] Authorized 05/15/2024 11/26/2024 30 30 Encounter Details Date Type Department Care Team (Latest Contact Info) Description 06/04/2024 9:53 AM CDT Hospital Encounter Department of Radiation Oncology in [place], [place] [address] [place] [phone] Genesis Aguilar M.D. [address] [place] [phone] Discharge Disposition: Home or Self Care Social [...] How often do you attend yarsani or denominational serv ices? Patient declined 07/26/2021 Do you [...] medical care, and heating? Patient declined 07/26/2021 [facility] of Occupat ional Health - Occupational [...] 04/29/2024 miscellaneous medical supply [facility] CPAP machine for home [...] documented as of this encounter Care Teams Construction Services Technician Relationship Specialty Start Date End Date Elsewhere, Pcp PCP - General Family Medicine 09/09/21 documented as of this encounter
--- OUTSIDE RECORDS SUMMARY | 2024-08-14 14:23 | XMS_ITS | Encounter Summary ---
Author Organization [facility] Address [address] [place] [address] Care Team Providers Care Agent Name Role Phone Elsewhere, Pcp Primary Care Provider Unavailabl e Reason for Referral * Radiation Therapy (Routine) - Authorized Specialty Diagnoses / Procedures Referred By Misa dienro Referred To Contact Diagnoses Malignant Neoplasm Of Brain (HCC) Procedures Management Visit Genesis Aguilar M.D. [address] [place] [address] [facility] Region Referral ID Status Reason Start Date Expiration Date V isits Requested Visits Authorized [id number] Authorized 05/03/2024 05/03/2025 10 10 Reason for Visit * Radiation Therapy (Routine) - Authorized Specialty Diagnoses / Procedures Referred By Misa dinero Referred To Contact Diagnoses Malignant Neoplasm Of Brain (HCC) Procedures Management Visit Genesis Aguilar M.D. [address] [place] [address] [facility] Region Referral ID Status Reason Start Date Expiration Date V isits Requested Visits Authorized [id number] Authorized 05/03/2024 05/03/2025 10 10 Encounter Details Date Type Department Care Team (Latest Contact Info) Description 05/29/2024 9:58 AM CDT - 05/29/2024 11:26 AM CDT Hospital Encounter Department of Radiation Oncology in [place], [place] [address] [place] [phone] Genesis Aguilar M.D. [address] [place] [address] Malignant Neoplasm Of Brain (HCC) Social History [...] declined 07/26/2021 How often do you attend confucianist or gnosticist serv ices? Patient declined 07/26/2021 Do you belong to any clubs o r organizations such as confucianist groups, unions, fraternal or athletic groups, or [...] medical care, and heating? Patient declined 07/26/2021 [facility] of Occupat ional Health - Occupational [...] place to sleep or slept in a longterm (including now)? Patient refused 07/26/2021 Nutrition Answer [...] Sign Reading Time Taken Comments Blood Pressure 159/91 05/29/2024 10:30 AM CDT Pulse 75 05/29/2024 10:30 AM CDT Temperature 36.1 ??C (97 ??F) 05/29/2024 10:30 AM CDT Respiratory Rate - - Oxygen Saturation - - Inhaled Oxygen Concentration - - Weight 110 kg (242 lb 1 oz) 05/29/2024 10:30 AM CDT Height - - Body Mass Index 34.73 10/08/2021 3:55 PM MUD ENGINEER documented in this encounter Medications at Time [...] at bedtime. 04/29/2024 miscellaneous medical supply [facility] CPAP machine for home [...] Progress Notes * Genesis Aguilar M.D. - 05/29/2024 10:45 AM CDT ATTESTATION FOR MANAGEMENT VISIT I saw and evaluated the patient and participated in the sargent portions of the service as noted below.I reviewed the documentation of Ms. Reyna Christianson RN and agree with the findings and plan. Thepatient appears well on exam. We will continue with radiation as planned and monitor weekly. Genesis Aguilar M.D., 05/29/2024 SUBJECTIVE REASON FOR VISIT Evaluation for side effects while receiving radiation treatment for 1. Malignant Neoplasm Of Brain (HCC) SUPERVISED BY: Genesis Aguilar M.D. HISTORY OF PRESENT ILLNESS Eleuterio Tafoya is a 49 y.o. 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 Patient is now undergoing radiation therapy concurrent with Temodar. Treatment Course: 1xBrain Plan ID Fractions Dose / Fraction (cGy) Dose Treated (cGy) Dose Planned (cGy) First Treatment Last Treatment Elapsed Days [id number] [phone] 05/20/2024 05/29/2024 9 Course Summary 05/20/2024 05/29/2024 9 The patient was seen and examined today with Dr. Aguilar. The patient reports intermittent headache that has not changed compared to baseline. He reports theheadaches of 5 out of 10. He takes Advil 600 mg 2-3 times daily and reports. He reports ongoing fatigue. He notes intermittent nausea but feels that it is more related to what he ate. Patient denies any neurological changes. He is taking Temodar as prescribed. He is titrating down his Dexamethasoneto 1 mg for the next couple days. He has no other issues or concerns at this time. PATIENT REPORTED SYMPTOM SCREEN FATIGUE (Scale: 0 = no fatigue; 10 = worst fatigue you can imagine): 7 PAIN (Scale: 0 = no pain; 10 = worst pain you can imagine): 2 OVERALL QUALITY OF LIFE (Scale: 0 = as bad as can be; 10 = as good as can be): 10 OBJECTIVE BP (!) 159/91 (BP Location: Left arm, Patient Position: Sitting, Cuff Size: Regular) Pulse 75 Temp 36.1 ??C (Temporal) Wt 110 kg BMI 34.73 kg/m?? PHYSICAL EXAM General: Alert and oriented in no apparent distress. ASSESSMENT / PLAN #1 Right temporal glioblastoma (CTO who grade 4), IDH negative, MGMT and NGS, pending #2 Status post gross total resection on April 19, 2024 #3 Radiation therapy to right temporal surgical cavity with concurrent Temodar initiated on May 20, 2024; anticipated date of completion is on July 01, 2024 The patient is tolerating radiation treatment well overall. Patient can continue to take Advil for headaches. We will see patient in weekly management visits. He will contact us with any questions orconcerns. We will continue with radiation treatment as planned. Signed by: Reyna Christianson R.N. 05/29/2024 10:56 AM CDT documented in this encounter Plan of Treatment Scheduled Orders Name Type Priority Associated Diagnoses Orde r Schedule Management Visit Radiation Oncology Routine Malignant Neoplasm Of Brain (HCC) Once for 1 Occurrences starting 05/29/2024 until 05/29/2024 documented as of this encounter Visit Diagnoses Diagnosis Malignant Neoplasm Of Brain (HCC) documented in this encounter Additional Health Concerns Infection Onset Date Last Indicated Resolved Time Protective Environment 05/27/2024 05/27/202407/26 5:47 AM CDT documented as of this encounter Care Teams Agent Relationship Specialty Start Date End Date Elsewhere, Pcp PCP - General Family Medicine 09/09/21 documented as of this encounter
--- OUTSIDE RECORDS SUMMARY | 2024-08-14 14:24 | XMS_ITS | Encounter Summary ---
Author Organization [facility] Address [address] [place] [address] Care Team Providers Care Lard Refiner Name Role Phone Elsewhere, Pcp Primary Care Provider Unavailabl e Reason for Visit * Radiation Therapy (Routine) - Authorized Specialty Diagnoses / Procedures Referred By Misa dinero Referred To Contact Diagnoses Malignant Neoplasm Of Brain (HCC) Procedures Prior Auth Rad Tx [place] IMRT COMPLEX [place] GUIDANCE FOR [place] RAD [place] IMRT RADIOTHERAPY PLAN Genesis Aguilar M.D. [address] [place] [phone] [facility] Referral ID Status Reason Start Date Expiration Date V isits Requested Visits Authorized [id number] Authorized 05/15/2024 11/26/2024 30 30 Encounter Details Date Type Department Care Team (Latest Contact Info) Description 05/21/2024 2:34 PM CDT Hospital Encounter Department of Radiation Oncology in [place], [place] [address] [place] [phone] Genesis Aguilar M.D. [address] [place] [phone] Discharge Disposition: Home or Self Care Social [...] declined 07/26/2021 How often do you attend methodist or jewish serv ices? Patient declined 07/26/2021 Do you belong to any clubs o r organizations such as methodist groups, unions, fraternal or athletic groups, or [...] medical care, and heating? Patient declined 07/26/2021 [facility] of Occupat ional Health - Occupational [...] mouth 2 (two) times a day. 04/12/2024 loratadine-pseudoeph edrine (CLARITIN-D 24-hour) 10-240 mg per 24 hr tablet Take 1 tablet by mouth daily. losartan (Cozaar) 100 mg tablet Take 1 tablet by mouth daily. 05/08/2024 melatonin 3 mg tablet Take 6 mg by mouth at bedtime. 04/29/2024 miscellaneous medical supply [facility] CPAP machine for home use [...] 05/14/2024 oxyCODONE (ROXICODONE) 5 mg immediate release tabletIndications:Ac n[place] Pain Take 1 tablet (5 mg total) [...] mg by mouth at bedtime. 05/14/2024 06/25/2024 acetaminophen (TYLENOL) 500 mg tablet Take 2 tablets (1,000 mg total) by mouth 4 (four) times a day. Do not exceed 4 gm (4,000 mg) of acetaminophen in a 24 hour period from all sources 30 tablet 11/19/2019 05/24/2024 amoxicillin (AMOXIL) 500 mg capsule TAKE 1 CAPSULE BY MOUTH THREE TIMES DAILY FOR 7 DAYS 04/19/2022 05/24/2024 cetirizine (ZyrTEC) 5 mg tablet Take 1 tablet (5 mg total) by mouth daily. 7 tablet 09/11/2021 05/24/2024 losartan (COZAAR) 50 mg tablet Take 50 mg by mouth 2 (two) times a day. 03/17/2024 05/24/2024 naltrexone (DEPADE) 50 mg tablet Take 50 mg by mouth daily. 04/19/2022 05/24/2024 documented as of this encounter Plan of Treatment Not on file documented as of this encounter Visit Diagnoses Not on filedocumented in this encounter Care Teams Lard Refiner Relationship Specialty Start Date End Date Elsewhere, Pcp PCP - General Family Medicine 09/09/21 documented as of this encounter
--- OUTSIDE RECORDS SUMMARY | 2024-08-14 14:24 | XMS_ITS | Encounter Summary ---
Author Organization [facility] Address [address] [place] [address] Care Team Providers Care Fitness Studies Teacher Name Role Phone Elsewhere, Pcp Primary Care Provider Unavailabl e Reason for Referral * Radiation Therapy (Routine) - Closed Specialty Diagnoses / Procedures Referred By Misa dinero Referred To Contact Diagnoses Malignant Neoplasm Of Brain (HCC) Procedures Initial Rad Onc Treatment Planning CT Simulation Genesis Aguilar M.D. [address] [place] [phone] [facility] Region Referral ID Status Reason Start Date Expiration Date Visits Re quested Visits Authorized [id number] Closed 05/03/2024 05/03/2025 1 1 Reason for Visit * Radiation Therapy (Routine) - Closed Specialty Diagnoses / Procedures Referred By Misa dinero Referred To Contact Diagnoses Malignant Neoplasm Of Brain (HCC) Procedures Initial Rad Onc Treatment Planning CT Simulation Genesis Aguilar M.D. [address] [place] [phone] [facility] Region Referral ID Status Reason Start Date Expiration Date Visits Re quested Visits Authorized [id number] Closed 05/03/2024 05/03/2025 1 1 Encounter Details Date Type Department Care Team (Latest Contact Info) Description 05/08/2024 2:00 PM CDT - 05/08/2024 3:32 PM CDT Hospital Encounter Department of Radiation Oncology in [place], [place] [address] [place] [phone] Genesis Aguilar M.D. [address] [place] [address] Malignant Neoplasm Of Brain (HCC) Social History [...] How often do you attend amish or shinto serv ices? Patient declined 07/26/2021 Do you [...] medical care, and heating? Patient declined 07/26/2021 [facility] [place] of Occupat ional Health - Occupational Stress [...] mouth at bedtime. 04/29/2024 miscellaneous medical supply [facility] CPAP machine for [...] TIMES DAILY NEEDED 22 g 2 08/10/2022 oxyCODONE (ROXICODONE) 5 mg immediate release tabletIndications:Ac kristi Pain Take 1 tablet (5 mg total) by mouth every 4 (four) hours as needed for pain (Take if pain is not controlled with Tylenol alone.) for up to 15 doses Indication: acute pain. 15 tablet 09/11/2021 sildenafil (REVATIO) 20 mg tablet TAKE 1 TO 5 TABLETS BY MOUTH DAILY NEEDED 04/04/2022 acetaminophen (TYLENOL) 500 mg tablet Take 2 [...] 04/19/2022 05/24/2024 documented as of this encounter Procedure Notes [...] planning. CT images were transferred to the Eclipse treatment planning system, after a reference isocenter was determined and marked. Segmentation and treatment planning will take place prior to treatment delivery. Patient set up and imaging was appropriate and completed without incident. Scientist Immunology use:No Associated attestation - Genesis Aguilar M.D. - 05/08/2024 3:32 PM CDT I was present during all critical and sargent portions of the procedure(s) and immediately available [facility] services the entire duration. See note for details. documented in this encounter Plan of Treatment Not on file documented as of this encounter Procedures Procedure [...] (HCC) documented in this encounter Care Teams Fitness Studies Teacher Relationship Specialty Start Date End Date Elsewhere, Pcp PCP - General Family Medicine 09/09/21 documented as of this encounter
--- OUTSIDE RECORDS SUMMARY | 2024-08-14 14:24 | XMS_ITS | Encounter Summary ---
Author Organization [facility] Address [address] [place] [address] Care Team Providers Care [place] Leverman Name Role Phone Elsewhere, Pcp Primary Care Provider Unavailabl e Reason for Referral * Outpatient (Routine) - Authorized Specialty Diagnoses / Procedures Referred By Misa dinero Referred To Contact Research Diagnoses Malignant Neoplasm Of Brain (HCC) Cy Quintana M.D. [address] [place] [phone] [facility] Referral ID Status Reason Start Date Expiration Date V isits Requested Visits Authorized [id number] Authorized 05/09/2024 11/08/2025 1 1 Scheduling Instructions CORE 4 ROSEMARY Driscoll Encounter Details Date Type Department Care Team (Late st Contact Info) Description 05/09/2024 Orders Only Department of Radiation Oncology in [place], [place] [address] [place] [phone] Yamila Townsend Malignant Neoplasm Of Brain (HCC) (Primary Dx) [...] How often do you attend taoism or tenriism serv ices? Patient declined 07/26/2021 Do you [...] declined 07/26/2021 [facility] of Occupat ional [facility] - Occupational Stress Questionnaire Answer [...] as of this encounter Plan of Treatment Scheduled Referrals Name Type Priority Associated Diagnoses Order Schedule Research Creative Manager office visit (clinic) Outpatient Referral Routine Malignant Neoplasm Of Brain (HCC) Expected: 05/09/2024, Expires: 08/09/2025 documented as of this encounter Visit Diagnoses Diagnosis Malignant Neoplasm Of Brain (HCC)- Primary documented in this encounter Care Teams [place] Leverman Relationship Specialty Start Date End Date Elsewhere, Pcp PCP - General Family Medicine 09/09/21 documented as of this encounter
--- OUTSIDE RECORDS SUMMARY | 2024-08-14 14:24 | XMS_ITS | Encounter Summary ---
Author Organization [facility] Address [address] [place] [address] Care Team Providers Care Carpet Installer Name Role Phone Elsewhere, Pcp Primary Care Provider Unavailabl e Encounter Details Date Type Department Care Team (Late st Contact Info) Description 05/10/2024 Orders Only Department of Radiation Oncology in [place], [place] [address] [place] [phone] Genesis Aguilar M.D. [address] [place] [address] Malignant Neoplasm Of Brain (HCC) (Primary Dx) [...] How often do you attend temple or anabaptist serv ices? Patient declined 07/26/2021 [...] and heating? Patient declined 07/26/2021 [facility] of Occupat ional Health - Occupational Stress [...] on file documented as of this encounter Results * Interpretation of Outside MR Head (05/10/2024 2:29 PM CDT) Anatomical Region Laterality Modality Neuroradiology RST LOS, Neur oradiology ARZ LOS, Neuroradiology FLA LOS, Head, Other N/A Magnetic Resonance Impressions 05/10/2024 3:16 PM CDT Substantial improvement in edema and mass effect associated with a resected right temporal glioblastoma. Small amounts of visible tumor likely persist, as described. Narrative 05/10/2024 3:16 PM CDT EXAM: ??INTERPRETATION OF OUTSIDE MR HEAD without and with IV gadolinium contrast 05/08/2024 COMPARISON: ??Outside MRI head 04/11/2024 and 04/19/2024, outside CT head 04/24/2024 FINDINGS: ??Most of the T2 hyperintense edema signal in the right temporoparietal lobes and insula and right thalamocapsular region has resolved; and with this, the mass effect on the right lateral ventricle has resolved and nearly all of the midline shift has resolved. There remains T1 hyperintense blood products within the right lateral temporal lobe resection cavity. Mild amount of infiltrative appearing T2 hyperintense signal in the right temporal lobe, which would be compatible with subtle residual infiltrative nonenhancing tumor. There is probably a small amount of enhancing tumor at the posterior aspect of the resection, when comparing with preoperative imaging, and also possibly at the superior aspect of the resection cavity. 5 mm thick T1 and T2 hyperintense extra-axial collection overlying the right temporal lobe and inferior right frontoparietal lobes, also with restricted diffusion, and without substantial surrounding enhancement allowing for precontrast T1 hyperintensity. While not entirely specific (e.g. empyema can have restricted diffusion), this is compatible with a small amount of postoperative extra-axial hematoma. Smaller postoperative fluid collection overlying the superficial, opposite side of the right temporal craniotomy flap. Procedure Note Yinka France M.D., M.S. - 05/10/2024 EXAM: INTERPRETATION OF OUTSIDE MR HEAD without and with IV gadoliniumcontrast 05/08/2024 COMPARISON: Outside MRI head 04/11/2024 and 04/19/2024, outside CT head04/24/2024 FINDINGS: Most of the T2 hyperintense edema signal in the righttemporoparietal lobes and insula and right thalamocapsular region hasresolved; and with this, the mass effect on the right lateral ventriclehas resolved and nearly all of the midline shift has resolved. There remains T1 hyperintense blood products withinthe right lateral temporal lobe resection cavity. Mild amount ofinfiltrative appearing T2 hyperintense signal in the right temporal lobe,which would be compatible with subtle residual infiltrative nonenhancing tumor. There is probably a small amountof enhancing tumor at the posterior aspect of the resection, whencomparing with preoperative imaging, and also possibly at the superioraspect of the resection cavity. 5 mm thick T1 and T2 hyperintense extra-axial collection overlying theright temporal lobe and inferior right frontoparietal lobes, also withrestricted diffusion, and without substantial surrounding enhancementallowing for precontrast T1 hyperintensity. While not entirely specific (e.g. empyema can haverestricted diffusion), this is compatible with a small amount ofpostoperative extra-axial hematoma. Smaller postoperative fluid collectionoverlying the superficial, opposite side of the right temporal craniotomy flap. IMPRESSION: Substantial improvement in edema and mass effect associated with aresected right temporal glioblastoma. Small amounts of visible tumorlikely persist, as described. Genesis COLLAZO MRI PROCEDURE S documented in this encounter Visit Diagnoses Diagnosis Malignant Neoplasm Of Brain (HCC)- Primary Malignant Neoplasm Of Brain (HCC) documented in this encounter Care Teams Carpet Installer Relationship Specialty Start Date End Date Elsewhere, Pcp PCP - General Family Medicine 09/09/21 documented as of this encounter
--- OUTSIDE RECORDS SUMMARY | 2024-08-14 14:24 | XMS_ITS | Encounter Summary ---
Author Organization [facility] Address [address] [place] [address] Care Team Providers Care Spa Coordinator Name Role Phone Elsewhere, Pcp Primary Care Provider Unavailabl e Reason for Visit * Radiation Therapy (Routine) - Authorized Specialty Diagnoses / Procedures Referred By Misa dinero Referred To Contact Diagnoses Malignant Neoplasm Of Brain (HCC) Procedures Prior Auth Rad Tx AK IMRT COMPLEX AK GUIDANCE FOR LOC RAD TX AK IMRT RADIOTHERAPY PLAN Genesis Aguilar M.D. [address] [place] [phone] [facility] Referral ID Status Reason Start Date Expiration Date V isits Requested Visits Authorized [id number] Authorized 05/15/2024 11/26/2024 30 30 Encounter Details Date Type Department Care Team (Latest Contact Info) Description 05/24/2024 9:46 AM CDT - 05/24/2024 11:59 PM CDT Hospital Encounter Department of Radiation Oncology in [place], [place] [address] [place] [phone] Genesis Aguilar M.D. [address] [place] [phone] Discharge Disposition: Home or Self Care Social [...] How often do you attend scientologist or jewish serv ices? Patient declined 07/26/2021 [...] care, and heating? Patient declined 07/26/2021 [facility] - Occupational Stress Questionnaire Answer [...] mouth at bedtime. 04/29/2024 miscellaneous medical supply [facility] CPAP machine for [...] on filedocumented in this encounter Care Teams Spa Coordinator Relationship Specialty Start Date End Date Elsewhere, Pcp PCP - General Family Medicine 09/09/21 documented as of this encounter
--- OUTSIDE RECORDS SUMMARY | 2024-08-14 14:24 | XMS_ITS | Encounter Summary ---
Author Organization [facility] Address [address] [place] [address] Care Team Providers Care Medical Records Coordinator Name Role Phone Elsewhere, Pcp Primary Care Provider Unavailabl e Reason for Visit * Radiation Therapy (Routine) - Authorized Specialty Diagnoses / Procedures Referred By Misa dinero Referred To Contact Diagnoses Malignant Neoplasm Of Brain (HCC) Procedures Prior Auth Rad Tx [place] IMRT COMPLEX [place] GUIDANCE FOR LOC RAD TX [place] IMRT RADIOTHERAPY PLAN Genesis Aguilar M.D. [address] [place] [phone] [facility] Referral ID Status Reason Start Date Expiration Date V isits Requested Visits Authorized [id number] Authorized 05/15/2024 11/26/2024 30 30 Encounter Details Date Type Department Care Team (Latest Contact Info) Description 05/22/2024 9:53 AM CDT - 05/22/2024 11:59 PM CDT Hospital Encounter Department of Radiation Oncology in [place], [place] [address] [place] [phone] Genesis Aguilar M.D. [address] [place] [phone] Discharge Disposition: Home or Self Care Social [...] declined 07/26/2021 How often do you attend roman catholic or sikhism serv ices? Patient declined 07/26/2021 Do you belong to any clubs o r organizations such as roman catholic groups, unions, fraternal or athletic groups, [...] declined 07/26/2021 [facility] - Occupational Stress Questionnaire Answer Date [...] place to sleep or slept in a intermediate (including now)? Patient refused 07/26/2021 Nutrition Answer [...] mouth at bedtime. 04/29/2024 miscellaneous medical supply [facility] CPAP machine for home use at pressure: [...] on filedocumented in this encounter Care Teams Medical Records Coordinator Relationship Specialty Start Date End Date Elsewhere, Pcp PCP - General Family Medicine 09/09/21 documented as of this encounter
--- OUTSIDE RECORDS SUMMARY | 2024-08-14 14:24 | XMS_ITS | Encounter Summary ---
Author Organization [facility] Address [address] [place] [address] Care Team Providers Care Associate Software Application Engineer Name Role Phone Elsewhere, Pcp Primary Care Provider Unavailabl e Reason for Referral * Outpatient (Routine) - Authorized Specialty Diagnoses / Procedures Referred By Contac t Referred To Contact Radiation Oncology Genesis Aguilar M.D. [address] [place] [phone] [facility] Region Referral ID Status Reason Start Date Expiration Date V isits Requested Visits Authorized [id number] Authorized 05/23/2024 11/22/2025 5 5 Reason for Visit * Outpatient (Routine) - Authorized Specialty Diagnoses / Procedures Referred By Misa dinero Referred To Contact Radiation Oncology Genesis Aguilar M.D. [address] [place] [phone] [facility] Region Referral ID Status Reason Start Date Expiration Date V isits Requested Visits Authorized [id number] Authorized 05/23/2024 11/22/2025 5 5 Encounter Details Date Type Department Care Team (Latest Contact Info) Description 05/23/2024 11:04 AM CDT - 05/23/2024 2:35 PM CDT Hospital Encounter Department of Radiation Oncology in [place], [place] [address] [place] [phone] Genesis Aguilar M.D. [address] [place] [phone] Reyna Christianson R.N. [address] [place] [phone] Malignant Neoplasm Of Brain (HCC) (Primary Dx) [...] declined 07/26/2021 How often do you attend sabianist or muslim serv ices? Patient declined 07/26/2021 Do you belong to any clubs o r organizations such as sabianist groups, unions, fraternal or athletic groups, or [...] medical care, and heating? Patient declined 07/26/2021 [facility] of Occupat ional Health - Occupational Stress [...] mouth at bedtime. 04/29/2024 miscellaneous medical supply [facility] [...] oxyCODONE (ROXICODONE) 5 mg immediate release tabletIndications:Ac hopi Pain Take 1 tablet (5 mg total) [...] 04/19/2022 05/24/2024 documented as of this encounter Progress Notes * Reyna Christianson R.NJudy - 05/23/2024 11:15 AM CDT Patient was feeling on anxious on the treatment machine. Ativan 0.5 mg was administered. 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 Patient verbalized that he would like a prescription so that he could take is prior to each radiation treatment. After taking Ativan 0.5 mg he reports that he felt like it was helpful but that he would probably need a bigger dose. Discussed withJudy Aguilar and she was ok with a prescription of Ativan 1 mg. Explained to patient that he should take it 30-45 minutes prior to treatment and that he will need a fleet driver for all treatments. Understanding was verbalized. documented in this encounter Plan of Treatment Scheduled Referrals Name Type Priority Associated Diagnoses Order Schedule Radiation Oncology nurse visit (clinic) Outpatient Referral Routine Once for 1 Occurrences starting 05/23/2024 until 05/23/2024 documented as of this encounter Visit Diagnoses Diagnosis Malignant Neoplasm Of Brain (HCC)- Primary documented in this encounter Administered Medications Inactive Administered Medications - up to 3 most recent administrations Medication Order MAR Action Action Date Dose Rate Site LORazepam tablet 0.5 mg (Ativan) 0.5 mg, oral, Once, On Liudmila 05/23/24 at 1400, For 1 dose Given 05/23/2024 10:25 AM CDT 0.5 mg documented in this encounter Care Teams Associate Software Application Engineer Relationship Specialty Start Date End Date Elsewhere, Pcp PCP - General Family Medicine 09/09/21 documented as of this encounter
--- OUTSIDE RECORDS SUMMARY | 2024-08-14 14:24 | XMS_ITS | Encounter Summary ---
Author Organization [facility] Address [address] [place] [address] Care Team Providers Care Deep Submergence Vehicle Crewmember Name Role Phone Elsewhere, Pcp Primary Care Provider Unavailabl e Encounter Details Date Type Department Care Team (Latest Contact Info) Description 05/10/2024 2:25 PM CDT Ancillary Procedure Department of Radiology in [place], [place] [address] [place] [address] Genesis Aguilar M.D. [address] [place] [phone] Malignant Neoplasm Of Brain (HCC) Social History [...] How often do you attend catholic or jain serv ices? Patient declined 07/26/2021 [...] medical care, and heating? Patient declined 07/26/2021 [facility] - Occupational Stress Questionnaire Answer [...] Procedure Name Priority Date/Time Associated Diagnosis Comments INTERPRETATION OF OUTSIDE MR HEAD RAD - Routine (most inpatients and all outpatients) 05/10/2024 2:29 PM CDT Malignant Neoplasm Of Brain (HCC) documented in this encounter Results * Interpretation of Outside [...] (HCC) documented in this encounter Care Teams Deep Submergence Vehicle Crewmember Relationship Specialty Start Date End Date Elsewhere, Pcp PCP - General Family Medicine 09/09/21 documented as of this encounter
--- OUTSIDE RECORDS SUMMARY | 2024-08-14 14:24 | XMS_ITS | Encounter Summary ---
Author Organization [facility] Address [address] [place] [address] Care Team Providers Care Bird Tender Name Role Phone Elsewhere, Pcp Primary Care Provider Unavailabl e Reason for Referral * Outpatient (Routine) - Closed Specialty Diagnoses / Procedures Referred By Misa dinero Referred To Contact Social Work Diagnoses Malignant Neoplasm Of Brain (HCC) Mica Gonzalez M.D. [address] [place] [address] [facility] Region Referral ID Status Reason Start Date Expiration Date Visits Re quested Visits Authorized [id number] Closed 05/08/2024 11/07/2025 1 1 Reason for Visit * Appointment Request (Routine) - Closed Specialty Diagnoses / Procedures Referred By Misa dinero Referred To Contact Radiation Oncology Diagnoses Glioma Brain (HCC) Shannon Ryder D.O. [address] [address] Referral ID Status Reason Start Date Expiration Date Visits Re quested Visits Authorized [id number] Closed 05/01/2024 05/01/2025 1 1 Encounter Details Date Type Department Care Team (Latest Contact Info) Description 05/08/2024 12:21 PM CDT - 05/09/2024 5:43 PM CDT Hospital Encounter Department of Radiation Oncology in [place], [place] [address] [place] [phone] Genesis Aguilar M.D. [address] [place] [address] Malignant Neoplasm Of Brain (HCC) (Primary Dx) [...] declined 07/26/2021 How often do you attend jainism or mosque serv ices? Patient declined 07/26/2021 Do you belong to any clubs o r organizations such as jainism groups, unions, fraternal or athletic groups, or [...] medical care, and heating? Patient declined 07/26/2021 [facility] - [...] Body Mass Index 36.79 10/08/2021 3:55 PM DOCK PUMPER documented in this encounter Medications at Time [...] mouth at bedtime. 04/29/2024 miscellaneous medical supply [facility] CPAP machine for home use at pressure: [...] oxyCODONE (ROXICODONE) 5 mg immediate release tabletIndications:Ac [place] Pain Take 1 tablet (5 mg total) [...] 04/19/2022 05/24/2024 documented as of this encounter Consult Notes * Mica Gonzalez M.D. - 05/08/2024 1:00 PM CDT Images from the original note were not included. RADIATION ONCOLOGY CONSULTATION Supervising Voice Studies Director: Dr. Genesis Aguilar REQUESTING PROVIDER Shannon Ryder D.O. 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 Strese is 49 y.o. 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 He walks independently with a prosthesis. He presents today to discuss radiotherapy for recently diagnosed glioblastoma. Oncology History Malignant Neoplasm Of Brain (HCC) 04/11/2024 Other Evaluated in urgent care, eventually transferred to the emergency room, for ongoing headaches present for the last 3 months along with new onset balance concerns and falls. He was discharged from theemergency room and started on steroids and Keppra 04/11/[address] head IMPRESSION: Ill-defined 5.9 x 5.4 x 3.9 centimeter right frontal temporal lobe mass with surrounding edema and mass effect leading to effacement of the right lateral and 3rd ventricles and 1.0 centimeter of [id number] midline shift; this is concerning for malignancy. Consider MRI with and without contrast for further evaluation. MR brain Impression: 1. 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 Multiple foci of susceptible artifact in the mass likely representing blood vessels as well as blood products. Findings concerning for high-grade intraparenchymal neoplasm such as glioblastoma. Although the lesion is presumed intra-axial, given the bony invasion, solitary fibrous tumor/hemangiopericytomais in the differential. 2. Moderate edema in the right temporal lobe, right basal ganglia, and right parietal lobe. Diffuseeffacement of right cerebral sulci. Stable 1.1 centimeter leftward midline shift with diffuse effacement of the 3rd ventricle and complete effacement of the right lateral ventricle. 04/19/2024 Critical Imaging MR brain Impression: MRI for purposes of surgical stereotaxis demonstrates the heterogeneously enhancing 7.5 cm lesion within the right temporal lobe, mildly increased in size. Mass effect results in 14 mm leftward midline shift and trapping of the left lateral ventricle. 04/19/2024 Surgery and Procedures Right craniotomy performed by Dr. Gerardo Her Final diagnosis A, B) brain, right temporal tumor, resection: 1. Glioblastoma (DEPUTY PROSECUTING ATTORNEY who grade 4), pending NGS to rule out rare IDH mutations; see comment 2. IDH1 R132H immunostain negative 3. MGMT promoter methylation ordered 4. AHL next generation sequencing to be performed and reported by amendment Comment While the immunohistochemical stain from IDH1 R132H detects the most common IDH mutation found in infiltrating gliomas (the canonical form), less common mutations of IDH1 R132H and IDH2 R172 are not detected using his antibody. Given the relatively young age of the patient, undetected IDH and IDH2 mutations and the results will be reported by amendment The following immunohistochemical stains are performed on B1 to further study this case: GFAP: Positive SOX10: Negative Neurofilament: Scattered immunoreactive cells IDH1 R132H: Negative ATRX: Preserved immunoreactivity P53: Focal strong immunoreactivity BRAF V600E: Negative. A 04/19/2024 Critical Imaging Postoperative MR brain Impression 1. 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 2. 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 04/24/[address] head FINDINGS: Evolving postsurgical changes of right pterional craniotomy with underlying resection cavity in theright lateral temporal lobe. Decreased low attenuation vasogenic edema with decreased mass effect including improved caliber of the right lateral ventricle and decreased leftward midline shift of theseptum pellucidum. Near-complete resolution of pneumocephalus. Residual blood products in the surgical bed. Unchanged small extra-axial postoperative collection underlying the craniotomy. 05/01/[address] Shannon Ryder, Neuro-Oncology. Discussed. postoperative concurrent chemoradiation with temozolomide followed by at least 6 cycles of chemotherapy with temozolomide. 05/15/2024 - Radiation Therapy Radiation Therapy Treatment Details (Noted on 05/03/2024) Site: Right Brain Technique: No technique specified Goal: Curative Planned Treatment Start Date: 05/15/2024 Today: Mr. Tafoya is doing well. He feels that he is recovering well after surgery, but is having to re-train his body how to walk and balance with his prosthetic leg. He is using a cane more than before surgery. Mr. Tafoya denies any numbness, tingling, or focal weakness after surgery. His speech is normal and he denies any difficulty with thinking and memory. Right-sided headaches are present but respond to Advil. He has no concerns about the incision and has not had fevers. Mr. Tafoya met with Dr. Ryder and discussed TMZ, and has a good understanding of the treatment plan. REVIEW OF SYSTEMS Review of systems as noted in HPI. Medications, Allergies, Pertinent Past Medical History, Past Surgical History, Social History, and Family History were reviewed. 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 PHYSICAL EXAMINATION ECOG score: 1 - Restricted in physically strenuous activity but ambulatory and able to carry out work of a light or sedentary nature General: Well-appearing, in no acute distress. Head: Scalp incision over the right lateral head. This is healing well, no discharge, erythema, or dehiscence. Lungs: Normal work of breathing on room air. MSK: Right-sided above the knee amputation, wearing a prosthetic Neuro: CN II-XII intact. Palate elevates symmetrically. No sensation deficits in the upper extremities or lower extremity. Strength in the upper extremities is 5/5 and equal bilaterally, including director institution strength. The patient feels that his strength is 5/5 in the left lower extremity although comparison with the right lower extremity is Psychiatric: Euthymic mood and appropriate affect. Extremities: No significant edema RECENT IMAGING, independently reviewed: 19 Apr 2024: MRI Brain: FINDINGS: Postsurgical changes secondary to interval right [...] visualized in the lateral right cerebellar hemisphere. ASSESSMENT / PLAN #Right temporal glioblastoma S/p resection 19 Apr 2024 NGS and MGMT pending Mr. Tafoya is a 49 y.o. patient with recently diagnosed glioblastoma, presenting today accompanied by his mother to discuss radiation therapy. We reviewed the pertinent clinical and pathologic features of the disease, including the aggressive nature of glioblastoma, expected prognosis, and the pending MGMT and NGS testing. In this setting, we recommend proceeding with concurrent TMZ and radiation, followed by adjuvant TMZ and possibly tumor treating umaña at the discretion of the patient and his medical oncologist. Radiation would be delivered over 30 treatments to a dose of 6000 cGy. We discussed the logistics of radiation simulation, planning, and daily treatment. For simulation, we plan to utilize a thermoplastic mask for immobilization and to obtain an MRI in treatment position. We also reviewed the acute toxicities associated with radiation treatment including, but not limited to fatigue, radiation skin changes, brain swelling which could manifest as nausea, headaches, oreven seizure, and hair loss. The risk of late toxicities and expected long-term oncologic outcomes were also discussed, including changes in short term memory or cognition, a very small chance of hearing loss, an exceptionally small chance of any vision changes, a risk of radiation necrosis, and endocrine abnormalities. Mr. Tafoya asked several excellent questions which we discussed. We discussed the SAGA clinical trial, but he was not sure about enrolling. We will look at his MRI from later today and determine if he would be a candidate, due to the large size of the post-operative cavity (was >6 cm on intraoperative MRI, but post-op MRI has not yet been assessed). The patient expressed understanding of the objective of radiation therapy, the potential acute and chronic toxicities, and the radiation planning and delivery process. Mr. Tafoya expressed his wish to go forward with CT and MRI planning today. He will think about SAGA and we will call him tomorrow with the results of his MRI scan, and if he would be a candidate for the study. The patient will meet the rest of our radiation oncology team as he progresses through simulation, treatments, and weekly management visits. Patient seen for the service of Dr. Genesis Aguilar. PLAN - Simulation CT and MRI today - Call patient tomorrow with results of scan, if he is a SAGA candidate - Otherwise plan to treat with 6000 cGy in 30 fractions - Tentative start date May 20. This may move up if he decides not to pursue SAGA Signed: Mica Gonzalez MD Resident Physician Department of Radiation Oncology Please don't hesitate to contact me with questions or discussion! Text Pager: [phone] Associated attestation - Genesis Aguilar M.D. - 05/09/2024 10:10 AM CDT RADIATION ONCOLOGY CONSULT I saw and evaluated the patient and participated in the sargent portions of the service. I reviewed thedocumentation of Dr. Mica Gonzalez and agree with the findings and plan. Please see Dr. Gonzalez's detailed note for the patient's initial presentation and work-up. Briefly,Mr. Tafoya is a very pleasant 49 year old male with a resected with a gross total resection of a right temporal glioblastoma (DEPUTY PROSECUTING ATTORNEY who grade 4), IDH negative, MGMT and NGS results are pending. I have independently reviewed his imaging, operative and pathology reports as described below. On exam, he appears well. Detailed exam as per Dr. Gonzalez. We discussed the findings as outlined above and below in this note. We discussed the treatment alternatives including supportive care vs brain radiotherapy with temozolomide. We also discussed study protocol that we have available at [facility] which is called Stereotactic Accelerated radiotherapy in GlioblastomA (SAGA). This study is a randomized phase 2 study design comparing conventional radiation with temozolomide to 5 or 10 stereotactic brain treatments depending on target volume also with temozolomide. His intra-operative MRI shows a cavity length of 6.5cm and it must be less than 6cm to be eligible. So, if he is eligible after his post-operative MRI that is being done today then we will call him back and bring him back for further discussion if he is interested. At this point he is leaning away from participating on the clinical trial, but has the consent form and we will call him tomorrow to discuss whether or not he wants to participate if we feel he is eligible. We will then talk with Dr. Ryder to make sure that she knows what the temozolomide expectations are for the study should he participate. We discussed the rationale, risks, side effects and goals of radiation therapy. We discussed the acute as well as shelter risks, including, but not limited to fatigue, skin erythema, hair loss, memory/cognitive effects and small risks for radiation necrosis. He understood and his questions were answered. He wished to proceed with treatment. We tentatively plan on delivering 6000 in 30 fractions starting May 20, 2024. If he participates in the SAGA study the standard of care arm is the same and the experimental arm is either a 5 or 10 fractions SRS treatment depending on the volume of the cavity. My thanks to Arabella, Arden, and Saul for the opportunity to participate in this patient'scare. EDUCATION Ready to learn, no apparent learning barriers were identified; learning preferences include listening. Explained diagnosis and treatment plan; patient expressed understanding of the content. CONSENT Discussed the risks, benefits, alternatives, and the necessity of other members of the healthcare team participating in the procedure. All questions answered and consent given. DIAGNOSIS #1 Right temporal glioblastoma (DEPUTY PROSECUTING ATTORNEY who grade 4), IDH negative, MGMT and NGS, pending #2 Status post gross total resection on April 19, 2024 I personally spent 35 minutes in care of the patient today. Time includes both non face to face andface to face patient care. Signed by: Genesis Aguilar M.D. 05/08/2024 documented in this encounter Plan of Treatment Scheduled Referrals Name Type Priority Associated Diagnoses Orde r Schedule Social Work - General consult (clinic) Outpatient Referral Routine Malignant Neoplasm Of Brain (HCC) Expected: 05/08/2024, Expires: 08/08/2025 documented as of this encounter Visit Diagnoses Diagnosis Malignant Neoplasm Of Brain (HCC)- Primary documented in this encounter Care Teams Bird Tender Relationship Specialty Start Date End Date Elsewhere, Pcp PCP - General Family Medicine 09/09/21 documented as of this encounter
--- OUTSIDE RECORDS SUMMARY | 2024-08-14 14:24 | XMS_ITS | Encounter Summary ---
Author Organization [facility] Address [address] [place] [address] Care Team Providers Care Auto Parts Handler Name Role Phone Elsewhere, Pcp Primary Care Provider Unavailabl e Reason for Referral * Specialty Diagnoses / Procedures Referred By Misa dinero Referred To Contact Gaby Arrington APRN, C.N.P., D.N.P. [address] [place] [phone] [facility] Referral ID Status Reason Start Date Expiration Date Visits Re quested Visits Authorized Encounter Details Date Type Department Care Team (Latest Contact Info) Description 05/24/2024 9:46 AM CDT - 05/24/2024 2:34 PM CDT Hospital Encounter Department of Radiation Oncology in [place], [place] [address] [place] [phone] Genesis Aguilar M.D. [address] [place] [phone] Jessica Arevalo REndy [address] [place] [phone] Malignant Neoplasm Of Brain (HCC) Discharge Disposition: [...] How often do you attend baptism or zoroastrian serv ices? Patient declined 07/26/2021 [...] Patient declined 07/26/2021 [facility] - Occupational [...] Sign Reading Time Taken Comments Blood Pressure - - Pulse - - Temperature - - Respiratory Rate - - Oxygen Saturation - - Inhaled Oxygen Concentration - - Weight 108 kg (237 lb 7 oz) 05/24/2024 1:00 PM C DT Height - - Body Mass Index 34.07 10/08/2021 3:55 PM RECLAMATION KETTLE TENDER documented in this encounter Medications at Time [...] bedtime. 04/29/2024 miscellaneous medical supply [facility] CPAP machine for home use [...] of this encounter Progress Notes * Jessica Arevalo RJudyN. - 05/24/2024 10:45 AM CDT Patient was educated on side effects of radiation therapy. Their questions were answered to the best of my ability. The patient was encouraged to contact the team at any point, with questions or concerns. documented in this encounter Plan of Treatment Scheduled Referrals Name Type Priority Associated Diagnoses Order Schedule Radiation Oncology - Nurse education visit (clinic) Outpatient Referral Routine Malignant Neoplasm Of Brain (HCC) Once for 1 Occurrences starting 05/24/2024 until 05/24/2024 documented as of this encounter Visit Diagnoses Diagnosis Malignant Neoplasm Of Brain (HCC) documented in this encounter Care Teams Auto Parts Handler Relationship Specialty Start Date End Date Elsewhere, Pcp PCP - General Family Medicine 09/09/21 documented as of this encounter
--- OUTSIDE RECORDS SUMMARY | 2024-08-14 14:24 | XMS_ITS | Encounter Summary ---
Author Organization [facility] Address [address] [place] [address] Care Team Providers Care Dining Chair Seat Cushion Trimmer Name Role Phone Elsewhere, Pcp Primary Care Provider Unavailabl e Reason for Visit * Radiation Therapy (Routine) - Authorized Specialty Diagnoses / Procedures Referred By Misa dinero Referred To Contact Diagnoses Malignant Neoplasm Of Brain (HCC) Procedures Prior Auth Rad Tx UT IMRT COMPLEX UT GUIDANCE FOR LOC RAD TX UT IMRT RADIOTHERAPY PLAN Genesis Aguilar M.D. [address] [place] [phone] [facility] Referral ID Status Reason Start Date Expiration Date V isits Requested Visits Authorized [id number] Authorized 05/15/2024 11/26/2024 30 30 Encounter Details Date Type Department Care Team (Latest Contact Info) Description 05/20/2024 10:00 AM CDT - 05/20/2024 11:59 PM CDT Hospital Encounter Department of Radiation Oncology in [place], [place] [address] [place] [phone] Genesis Aguilar M.D. [address] [place] [phone] Discharge Disposition: Home or Self Care Social [...] How often do you attend adventism or scientology serv ices? Patient declined 07/26/2021 Do you [...] medical care, and heating? Patient declined 07/26/2021 [facility] - Occupational Stress Questionnaire Answer Date [...] place to sleep or slept in a assisted (including now)? Patient refused 07/26/2021 Nutrition Answer [...] mouth at bedtime. 04/29/2024 miscellaneous medical supply [facility] CPAP machine for home use at pressure: [...] oxyCODONE (ROXICODONE) 5 mg immediate release tabletIndications:Ac [place] Pain Take 1 tablet (5 mg total) [...] on filedocumented in this encounter Care Teams Dining Chair Seat Cushion Trimmer Relationship Specialty Start Date End Date Elsewhere, Pcp PCP - General Family Medicine 09/09/21 documented as of this encounter
--- OUTSIDE RECORDS SUMMARY | 2024-08-14 14:24 | XMS_ITS | Encounter Summary ---
Author Organization [facility] Address [address] [place] [phone] Care Team Providers Care Automatic Lump Making Machine Tender Name Role Phone Elsewhere, Pcp Primary Care Provider Unavailabl e Reason for Visit * Radiation Therapy (Routine) - Authorized Specialty Diagnoses / Procedures Referred By Misa dinero Referred To Contact Diagnoses Malignant Neoplasm Of Brain (HCC) Procedures Prior Auth Rad Tx NE IMRT COMPLEX NE GUIDANCE FOR LOC RAD TX NE IMRT RADIOTHERAPY PLAN Genesis Aguilar M.D. [address] [place] [phone] [facility] Referral ID Status Reason Start Date Expiration Date V isits Requested Visits Authorized [id number] Authorized 05/15/2024 11/26/2024 30 30 Encounter Details Date Type Department Care Team (Latest Contact Info) Description 05/23/2024 9:51 AM CDT - 05/23/2024 11:03 AM CDT Hospital Encounter Department of Radiation Oncology in [place], [place] [address] [place] [phone] Genesis Aguilar M.D. [address] [place] [phone] Discharge Disposition: Home or Self Care Social [...] declined 07/26/2021 How often do you attend christianity or methodist serv ices? Patient declined 07/26/2021 Do you belong to any clubs o r organizations such as christianity groups, unions, fraternal or athletic groups, or [...] medical care, and heating? Patient declined 07/26/2021 [facility] - Occupational Stress Questionnaire Answer [...] mouth at bedtime. 04/29/2024 miscellaneous medical supply [facility] CPAP machine for home use at pressure: [...] on filedocumented in this encounter Care Teams Automatic Lump Making Machine Tender Relationship Specialty Start Date End Date Elsewhere, Pcp PCP - General Family Medicine 09/09/21 documented as of this encounter
--- OUTSIDE RECORDS SUMMARY | 2024-08-14 14:24 | XMS_ITS | Encounter Summary ---
Author Organization [facility] Address [address] [place] [address] Care Team Providers Care Payroll Clerk Name Role Phone Elsewhere, Pcp Primary Care Provider Unavailabl e Reason for Referral * Radiation Therapy (Routine) - Authorized Specialty Diagnoses / Procedures Referred By Misa dinero Referred To Contact Diagnoses Malignant Neoplasm Of Brain (HCC) Procedures Management Visit Genesis Aguilar M.D. [address] [place] [address] [facility] Region Referral ID Status Reason Start Date Expiration Date V isits Requested Visits Authorized [id number] Authorized 05/03/2024 05/03/2025 10 10 Reason for Visit * Radiation Therapy (Routine) - Authorized Specialty Diagnoses / Procedures Referred By Misa dinero Referred To Contact Diagnoses Malignant Neoplasm Of Brain (HCC) Procedures Management Visit Genesis Aguilar M.D. [address] [place] [address] [facility] Region Referral ID Status Reason Start Date Expiration Date V isits Requested Visits Authorized [id number] Authorized 05/03/2024 05/03/2025 10 10 Encounter Details Date Type Department Care Team (Latest Contact Info) Description 05/21/2024 2:35 PM CDT - 05/21/2024 4:59 PM CDT Hospital Encounter Department of Radiation Oncology in [place], [place] [address] [place] [phone] Genesis Aguilar M.D. [address] [place] [address] Malignant Neoplasm Of Brain (HCC) Social History [...] declined 07/26/2021 How often do you attend caodaism or restoration serv ices? Patient declined 07/26/2021 Do you belong to any clubs o r organizations such as caodaism groups, unions, fraternal or athletic groups, or [...] medical care, and heating? 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 CPAP machine for [...] oxyCODONE (ROXICODONE) 5 mg immediate release tabletIndications:Ac [place] Pain Take 1 tablet (5 mg total) [...] Progress Notes * Genesis Aguilar M.D. - 05/21/2024 3:30 PM CDT SUBJECTIVE REASON FOR VISIT Evaluation for side effects while receiving radiation treatment for 1. Malignant Neoplasm Of Brain (HCC) SUPERVISED BY: Genesis Aguilar M.D. HISTORY OF PRESENT ILLNESS Eleuterio Tafoya is a 49 y.o. 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 Patient is now undergoing radiation therapy concurrent with Temodar. Treatment Course: 1xBrain Plan ID Fractions Dose / Fraction (cGy) Dose Treated (cGy) Dose Planned (cGy) First Treatment Last Treatment Elapsed Days [id number] 05/20/2024 05/21/2024 1 Course Summary 05/20/2024 05/21/2024 1 The patient was seen and examined today with Dr. Aguilar. The patient reports intermittent headache that has not changed compared to baseline. He takes 2-3 tablets of Advil a day. Patient does report fatigue with treatment. Patient denies nausea, vomiting, vision changes or other new symptoms. PATIENT REPORTED SYMPTOM SCREEN FATIGUE (Scale: 0 = no fatigue; 10 = worst fatigue you can imagine): 7 PAIN (Scale: 0 = no pain; 10 = worst pain you can imagine): 2 OVERALL QUALITY OF LIFE (Scale: 0 = as bad as can be; 10 = as good as can be): 10 OBJECTIVE BP 144/88 (BP Location: Right arm, Patient Position: Sitting, Cuff Size: Regular) Pulse 60 Temp36.2 ??C (Temporal) Wt 114 kg BMI 35.93 kg/m?? PHYSICAL EXAM General: Alert and oriented in no apparent distress. ASSESSMENT / PLAN #1 Right temporal glioblastoma ([employer] SUPER[employer]OR who grade 4), IDH negative, MGMT and NGS, pending #2 Status post gross total resection on April 19, 2024 #3 Radiation therapy to right temporal surgical cavity with concurrent Temodar initiated on May 20, 2024; anticipated date of completion is on July 01, 2024 The patient is tolerating radiation treatment well overall. We discussed daily walks or daily yoga to help manage treatment related fatigue. We will see patient in weekly management visits. He will contact us with any questions or concerns. We will continue with radiation treatment as planned. Signed by: Jessica Arevalo R.N. 05/21/2024 3:37 PM CDT ATTESTATION FOR MANAGEMENT VISIT I saw and evaluated the patient and participated in the sargent portions of the service as noted above.I reviewed the documentation of Ms. Jessica Arevalo RN and agree with the findings and plan. The patient appears well on exam. We will continue with radiation as planned and monitor weekly. I shared with them the over-read I had done on his post-op MRI that he had done for radiation planning. He elected to not participate in the SAG[place] study. Their questions were answered; they were comfortable with proceeding. Genesis Aguilar M.D., 05/21/2024 documented in this encounter Miscellaneous Notes * Addendum Note - Reyna Christianson R.N. - 05/21/2024 3:30 PM CDTEncounter addended by: Reyna Christianson R.N. on: 05/23/2024 10:17 AM Actions taken: Order Reconciliation Section accessed documented in this encounter Plan of Treatment Scheduled Orders Name Type Priority Associated Diagnoses Orde r Schedule Management Visit Radiation Oncology Routine Malignant Neoplasm Of Brain (HCC) Once for 1 Occurrences starting 05/21/2024 until 05/21/2024 documented as of this encounter Visit Diagnoses Diagnosis Malignant Neoplasm Of Brain (HCC) documented in this encounter Care Teams Payroll Clerk Relationship Specialty Start Date End Date Elsewhere, Pcp PCP - General Family Medicine 09/09/21 documented as of this encounter
--- OUTSIDE RECORDS SUMMARY | 2024-08-14 14:25 | XMS_ITS | Clinical Summary ---
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 1 unit 01/29/2018 Active CPAPIndications:O SA on CPAP CPAP machine for home use at pressure: 13cn/H2O , Heated humidifier x 1, Humidifier chamber x 1, 1 unit 11 01/18/2019 Active CPAPIndications:O SA on CPAP CPAP machine [...] use: Daily 1 Device 11 08/11/2020 Active nicotine [address] 2 mg in mouth, between cheek & gum. Active losartan (COZAAR) 50 mg tablet Take 50 mg by mouth once daily. 03/17/2024 Active FLUoxetine (PROzac) 20 mg capsule Take [...] affected area(s) at bedtime. 35 mL 1 04/29/2024 Active sodium chloride 1,000 mg soluble tabletIndications :Hyponatremia Take 1 Tablet (1,000 mg) by mouth or nasogastric tube two times daily. 30 Tablet 04/29/2024 Active melatonin 3 mg tabletIndications :Insomnia, unspecified type Take 2 Tablets (6 mg) by mouth at bedtime. 30 Tablet 04/29/2024 Active ondansetron (ZOFRAN) 8 mg tabletIndications :Chemotherapy induced nausea and vomiting Take one tablet by mouth 30 minutes prior to chemotherapy and every 8 hours as needed for breakthrough nausea. 30 Tablet 5 05/14/2024 Active glycopyrronium tosylate (Qbrexza) 2.4 % towlIndications:H yperhidrosis Apply topically to affected area(s) once daily. 30 Each 1 05/21/2024 Active ibuprofen (AdviL) 200 mg tablet Take 200 mg by mouth every 6 hours. Active LORazepam (ATIVAN) 1 mg tablet Take 1 mg by mouth every 6 hours if needed. Active naltrexone (REVIA) 50 mg tabletIndications :Alcohol use disorder Take 1 Tablet (50 mg) by mouth once daily. 90 Tablet 1 06/10/2024 Active famotidine (PEPCID) 20 mg tabletIndications :Brain tumor (HC) Take 1 Tablet (20 mg) by mouth once daily. Continue to take while on dexamethasone. 90 Tablet 06/20/2024 Active levETIRAcetam (Keppra) 500 mg tabletIndications :Glioblastoma (HC) Take 1 Tablet (500 mg) by mouth two times daily. 180 Tablet 3 06/20/2024 Active dexAMETHasone 2 mg tabletIndications :Glioblastoma (HC),Cerebral edema (HC) Take 2 tablets (4 mg) by mouth twice daily with a meal until MondayJuly 08. On 07/08/2024, start taking 2 tablets (4 mg) by mouth in AM and 1.5 tablets (3 mg) in PM with a meal for 1 week. On 07/15/2024, start taking 2 tablets (4 mg) by mouth in AM and 1 tablet (2 mg) in PM with a meal for 1 week. On 07/22/2024 start taking 2 tablets (4 mg) by mouth in AM and 1/2 tablet (1 mg) in PM with a meal for 1 week until follow-up. 80 Tablet 07/03/2024 Active diazePAM (VALIUM) 10 mg tabletIndications :Glioblastoma (HC) Take 1 tablet (10 mg) at least 30 minutes prior to MRI scan on July 26 2024. 1 Tablet 07/24/2024 Active topiramate (Topamax) 25 mg tabletIndications :Chronic daily headache topiramate 25mg 2 times/day for 7 days, after then 50mg 2 times/day 120 Tablet 2 08/09/2024 Active temozolomide (TEMODAR) 100 mg capsuleIndication s:Glioblastoma (HC) Take 1 Capsule (100 mg) by mouth once daily with 1 other temozolomide prescription for 350 mg total for 5 doses. Take on Days 1-5 of each 28 day cycle. 5 Capsule 07/30/2024 4 Discontinue d(*Medicati on adjustment) temozolomide (TEMODAR) 250 mg capsuleIndication s:Glioblastoma (HC) Take 1 Capsule (250 mg) by mouth once daily with 1 other temozolomide prescription for 350 mg total for 5 doses. Take on Days 1-5 of each 28 day cycle. 5 Capsule 07/30/2024 4 Discontinue d(*Medicati on adjustment) temozolomide (TEMODAR) 20 mg capsuleIndication s:Glioblastoma (HC) Take 2 Capsules (40 mg) by mouth once daily with 1 other temozolomide prescription for 340 mg total for 5 doses. Take on Days 1-5 of each 28 day cycle. Do not start before August 05, 2024. 10 Capsule 08/05/2024 4 temozolomide (TEMODAR) 100 mg capsuleIndication s:Glioblastoma (HC) Take 3 Capsules (300 mg) by mouth once daily with 1 other temozolomide prescription for 340 mg total for 5 doses. Take on Days 1-5 of each 28 day cycle. Do not start before August 05, 2024. 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 08/06/2007 Anxiety 04/10/2003 Overview (05/31/2013): diagnosis around 2002, citalopram started 2002, changed [...] Encounters Date Type Department Care Team Description 08/14/2024 Telephone [facility] [address] [place] [address] Shannon Ryder DO Oncology Nurse Navigation 08/09/2024 10:00 AM CDT Office Visit [facility] [address] [place] [phone] Maggy Gerardo MD Headache 08/09/2024 Travel 08/08/2024 Telephone [facility] [address] [place] [address] Shannon Ryder DO Oncology Nurse Navigation 08/02/2024 Orders Only [facility] [address] [place] [address] Shannon Ryder DO <No scans attached> 08/02/2024 Refill [facility] [address] [place] [address] Shannon Ryder DO Refill Request 08/01/2024 Telephone [facility] [address] [place] [address] Shannon Ryder DO Oncology Nurse Navigation ([facility] ) 07/30/2024 Telephone [facility] [address] [facility] [address] [place] [address] Shannon Ryder DO Oncology Nurse Navigation 07/26/2024 10:45 AM CDT Office Visit [facility] [address] [place] [address] Shannon Ryder DO Follow Up 07/26/2024 7:57 AM CDT - 07/26/2024 11:59 PM CDT Hospital Encounter [facility] [address] [place] [address] Shannon Ryder DO Glioblastoma (HC); Acute intractable headache, unspecified headache type; Cellulitis of right leg 07/26/2024 Telephone [facility] [address] [place] [address] Pretty Thorne MD 07/26/2024 Travel 07/22/2024 Telephone [facility] [address] [place] [phone] Shannon Ryder DO Oncology Nurse Navigation 07/22/2024 Telephone Gino scroll kitnasir [phone] Deonna Iverson 07/18/2024 Telephone [facility] [address] [place] [phone] Jacobo Flores NP Oncology Nurse Navigation (Labs) 07/16/2024 Orders Only [facility] Staff, Other Clinical 1 scan: (1-Ord) [facility] 07/11/2024 Telephone [facility] [address] [place] [phone] Shannon Ryder DO Oncology Nurse Navigation 07/09/2024 Telephone [facility] [address] [place] [address] Shannon Ryder DO Oncology Nurse Navigation 07/03/2024 11:45 AM CDT Office Visit [facility] [address] [place] [address] Shannon Ryder DO Follow Up 07/03/2024 8:30 AM CDT [phone] Deonna Iverson Care Guide (Visit) 07/03/2024 6:42 AM CDT - 07/03/2024 11:59 PM CDT Hospital Encounter [facility] [address] [place] [address] Shannon Ryder DO Glioblastoma (HC) 07/03/2024 Refill [facility] [address] [place] [address] Shannon Ryder DO Refill Request 07/03/2024 Travel 06/28/2024 Telephone [facility] [address] [place] [phone] 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, nuclear fuels reclamation engineer Nurse Navigation 06/27/2024 Telephone [facility] [address] [place] [phone] Jacobo Flores, CHUCK Oncology Nurse Navigation 06/25/2024 Telephone [facility] [address] [place] [phone] Lydia Curtis, [facility] Social Work Contact 06/21/2024 Telephone [facility] [address] [facility] [address] [place] [phone] Jacobo Flores, CHUCK Oncology Nurse Navigation 06/20/2024 Telephone [facility] [address] [phone] Jacobo Flores NP Oncology Nurse Navigation 06/10/2024 1:00 PM CDT Office Visit [facility] [address] [place] [address] Jacobo Flores NP Follow Up (pressure headaches ) 06/10/2024 Telephone [facility] [address] [place] [phone] Jacobo Flores NP Oncology Nurse Navigation 06/10/2024 Travel 06/09/2024 Telephone [facility] [address] [place] [address] Sonu Brown MD Headache 06/04/2024 Telephone [facility] [address] [facility] [address] [place] [phone] Shannon Ryder DO Oncology Nurse Navigation 05/27/2024 Telephone [facility] [address] [place] [phone] Shannon Ryder DO Medication Management 05/27/2024 Telephone [facility] [address] [place] [address] Pretty Thorne MD Prior Authorization (glycopyrronium tosylate (Qbrexza) 2.4 % towl EXCLUDED) 05/21/2024 11:15 AM CDT Office Visit [facility] [address] [place] [address] Pretty Thorne MD Follow Up 05/21/2024 Travel 05/21/2024 Telephone [facility] [address] [place] [address] Trini Pearson RN 05/20/2024 Telephone [facility] [address] [place] [phone] Shannon Ryder DO 05/14/2024 Refill [facility] [address] [facility] [address] [place] [phone] Shannon Ryder, Refill Request from Last 3 Months Immunizations Name Administration [...] Sign Reading Time Taken Comments Blood Pressure 142/81 08/09/2024 9:44 AM CDT Pulse 74 08/09/2024 9:44 AM CDT Temperature 37.1 ??C (98.7 ??F) 06/10/2024 12:56 PM C DT Respiratory Rate 16 08/09/2024 9:44 AM CDT Oxygen Saturation 93% 08/09/2024 9:44 AM CDT Inhaled Oxygen Concentration - - Weight 113.4 kg (250 lb) 08/09/2024 9:44 AM CDT Height 180.3 cm (5' 11) 04/17/2024 3:11 AM CDT Body Mass Index 34.87 04/17/2024 3:11 AM CDT Plan of Treatment Upcoming Encounters Date Type Department Care Team (Late st Contact Info) Description 09/06/2024 10:30 AM CDT Office Visit [facility] [address] [facility] [address] [place] [phone] Maggy Gerardo MD [address] [place] [address] 09/23/2024 8:00 AM CDT Appointment [facility] [address] [place] [address] 09/23/2024 9:45 AM CDT Office Visit [facility] [address] [facility] [address] [place] [phone] Shannon Ryder DO [address] [place] [address] Health Maintenance Due Date Last Done Comments [...] Completed 05/21/2012 Medical Devices Implanted Type Area Health Care Social Worker Device Identifier Shelf Expiration Date Model / Serial / Lot Dura Neuro 3x3in Duragen Plusnon-Sut - [id number] Implanted:Qty: 1 on 04/19/2024 by Gerardo Her MD at [facility] Right: [employer] 01/24/2027 DP-1033 / / [id number] Screw Neuro 4mm Matrixneuro Slf Drill Titnm - [id number] Implanted:Qty: 12 on 04/19/2024 by Gerardo Her MD at [facility] Right: [employer] CMF [id number] 4.01 / / Enrike Hole Cover Neuro 17mm Synthes Low Pro Titnm - [id number] Implanted:Qty: 3 on 04/19/2024 by Gerardo Her MD at [facility] Right: [employer] CMF [id number] / / Procedures Procedure Name Priority Date/Time Associated Diagnosis Comments SCAN CORRESP-LABORATORY RESULTS 08/13/2024 11:11 AM CDT CBC WITH AUTO DIFFERENTIAL Timed 07/26/2024 12:56 PM CDT Glioblastoma (HC) Cellulitis of right leg COMP METABOLIC PANEL Today 07/26/2024 12:56 PM CDT Glioblastoma (HC) Cellulitis of right leg CBC WITH AUTO DIFFERENTIAL Today 07/26/2024 12:56 PM CDT Glioblastoma (HC) Cellulitis of right leg TOXOPLASMA GONDII PCR BLOOD OR CSF Today 07/26/2024 12:56 PM CDT Glioblastoma (HC) Cellulitis of right leg MR HEAD BRAIN VENOGRAM WWO Routine 07/26/2024 10:12 AM CDT Acute intractable headache, unspecified headache type MR HEAD W WO CONT W PERFUSION Routine 07/26/2024 10:03 AM CDT Glioblastoma (HC) SCAN CORRESP-LABORATORY RESULTS 07/23/2024 12:29 PM CDT SCAN CORRESP-LABORATORY RESULTS 07/16/2024 8:04 AM CDT MR HEAD W WO CONT W PERFUSION ARSALAN 07/03/2024 9:30 AM CDT Glioblastoma (HC) SCAN CORRESP-LABORATORY RESULTS 07/02/2024 8:03 AM CDT SCAN CORRESP-LABORATORY RESULTS 07/02/2024 8:03 AM CDT SCAN CORRESP-LABORATORY RESULTS 06/21/2024 11:22 AM CDT SCAN CORRESP-LABORATORY RESULTS 06/12/2024 7:47 AM CDT SCAN CORRESP-LABORATORY RESULTS 06/05/2024 7:37 AM CDT SCAN CORRESP-LABORATORY RESULTS 06/03/2024 1:24 PM CDT SCAN CORRESP-LABORATORY RESULTS 05/15/2024 8:22 AM CDT LIPID PANEL W REFLEX MEASURED LDL Routine 02/11/2014 8:12 AM CDT Hypertriglyceridemi a from Last 3 Months or Most Recently Relevant to Health Maintenance Results * SCAN CORRESP-LABORATORY RESULTS (08/13/2024 11:11 AM CDT) Only the most recent of10 resultswithin the time period is included. Narrative 08/13/2024 11:11 AM CDT Ordered by an unspecified provider. Other Clinical Staff OTHER * TOXOPLASMA GONDII PCR BLOOD OR CSF (07/26/2024 12:56 PM CDT) [facility] TOXOPLASMA GONDII PCR Negative Negative 08/04/2024 10:06 PM CDT [facility] ([facility]) Comment: No Toxoplasma gondii DNA detected. This test was developed and its performance characteristics determined by [facility]. It has not been cleared or approved by the U.S. Food and Drug Administration. The FDA has determined that such clearance or approval is not necessary. This test is used for clinical purposes. It should not be regarded as investigational or research. Other BLOOD SPECIMEN / Unknown Venipuncture / Unknown 07/26/2024 12:56 PM CDT 07/26/2024 1:02 PM CDT Narrative [facility] ([facility]) - 08/04/2024 10:06 PM CDT Performed at: ??[address] ??[id number] Railway Head Tender: Fauzia Harmon MD, Phone: ??[phone] Shannon Ryder DO SEND OUTS [facility] ([facility]) [address] [place] [address], * (ABNORMAL) CBC WITH AUTO DIFFERENTIAL (07/26/2024 12:56 PM CDT) [facility] WHITE BLOOD COUNT 6.6 4.5 - 11.0 thou/cu mm 07/26/2024 1:13 PM CDT [facility] RED BLOOD COUNT 3.59(L) 4.30 - 5.90 mil/cu mm 07/26/2024 1:13 PM CDT [facility] HEMOGLOBIN 13.3(L) 13.5 - 17.5 g/dL 07/26/2024 1:[facility] HEMATOCRIT 37.2 37.0 - 53.0 % 07/26/2024 1:13 PM [facility] MCV 104(H) 80 - 100 fL 07/26/2024 1:13 PM CDT [facility] MCH 37.0(H) 26.0 - 34.0 pg 07/26/2024 1:13 PM T [facility] MCHC 35.8 32.0 - 36.0 g/dL 07/26/2024 1:13 PM [facility] RDW 13.9 11.5 - 15.5 % 07/26/2024 1:13 PM T [facility] PLATELET COUNT 156 140 - 440 thou/cu mm 07/26/2024 1:13 PM [facility] MPV 8.1 6.5 - 11.0 fL 07/26/2024 1:13 [facility] NRBC 0.3 % 07/26/2024 1:13 PM CDT [facility] ABS NRBC 0.0 thou /cu mm 07/26/2024 1:13 [facility] % NEUT 80.2 % 07/26/2024 1:13 [facility] % LYMPH 9.4 % 07/26/2024 1:13 PM CDT [facility] % MONO 5.9 % 07/26/2024 1:13 PM CDT [facility] % EOS 0.2 % 07/26/2024 1:13 PM CDT [facility] % BASO 0.2 % 07/26/2024 1:13 PM CDT [facility] % IMMATURE GRAN (METAS,MYELOS,LA OS) 4.1 % 07/26/2024 1:13 PM CDT [facility] ABSOLUTE NEUTROPHILS 5.3 1.7 - 7.0 thou/cu mm 07/26/2024 1:13 PM CDT [facility] ABSOLUTE LYMPHOCYTES 0.6(L) 0.9 - 2.9 thou/cu mm 07/26/2024 1:13 PM CDT [facility] ABSOLUTE MONOCYTES 0.4 <0.9 thou/cu mm 07/26/2024 1:13 PM CDT [facility] ABSOLUTE EOSINOPHILS 0.0 <0.5 thou/cu mm 07/26/2024 1:13 PM CDT [facility] ABSOLUTE BASOPHILS 0.0 <0.3 thou/cu mm 07/26/2024 1:13 PM CDT [facility] ABSOLUTE IMMATURE GRANULOCYTES(MET ,MYELOS,PROS) 0.3(H) <0.3 thou/cu mm 07/26/2024 1:13 PM CDT [facility] Blood BLOOD SPECIMEN / Unknown Venipuncture / Unknown 07/26/2024 12:56 PM CDT 07/26/2024 1:02 PM CDT [facility] - 07/26/2024 1:13 PM CDT This procedure was originally ordered at [facility] [place]. This procedure was originally ordered at [facility] [place]. Shannon Ryder DO HEMATOLOGY [facility] [address] [place] [address], [place] * (ABNORMAL) COMP METABOLIC PANEL (07/26/2024 12:56 PM CDT) SODIUM 137 136 - 145 mmol/L 07/26/2024 1:44 PM CDT [facility] POTASSIUM 4.4 3.5 - 5.1 mmol/L 07/26/2024 1:44 PM CDT [facility] CHLORIDE 100 98 - 107 mmol/L 07/26/2024 1:44 PM CDT [facility] CO2,TOTAL 22 22 - 29 mmol/L 07/26/2024 1:44 PM CDT [facility] ANION GAP 15 5 - 18 07/26/2024 1:44 PM CDT [facility] GLUCOSE 110(H) 70 - 99 mg/dL 07/26/2024 1:44 PM T [facility] CALCIUM 9.5 8.6 - 10.0 mg/dL 07/26/2024 1:44 PM T [facility] BUN 25(H) 6 - 20 mg/dL 07/26/2024 1:44 PM T [facility] CREATININE 0.70 0.70 - 1.20 mg/dL 07/26/2024 1:44 PM [facility] BUN/CREAT RATIO 36(H) 10 - 20 1:44 PM T [facility] eGFR >90 >90 mL/min/1.7 3m2 07/26/2024 1:44 PM [facility] Comment:As of 2022, eG FR is calculated by the CKD-EPI creatinine equation without race adjustment. ??eGFR can be influenced by muscle mass, exercise, and diet. ??The reported eGFR is an estimation only and is only applicable if the renal function is stable. ALBUMIN 4.2 4.0 - 4.9 g/dL 07/26/2024 1:44 PM CDT [facility] PROTEIN,TOTAL 6.8 6.0 - 8.0 g/dL 07/26/2024 1:44 PM T [facility] BILIRUBIN,TOTAL 0.3 0.0 - 1.2 mg/dL 07/26/2024 1:44 PM T [facility] ALK PHOSPHATASE 64 40 - 129 IU/L 07/26/2024 1:44 PM T [facility] ALT (SGPT) 25 10 - 50 IU/L 07/26/2024 1:44 PM T [facility] AST (SGOT) 21 10 - 50 IU/L 07/26/2024 1:44 PM T [facility] Blood BLOOD SPECIMEN / Unknown Venipuncture / Unknown 07/26/2024 12:56 PM CDT 07/26/2024 1:03 PM CDT Shannon Ryder DO CHEMISTRY [facility] [address] [place] [address], [place] * MR HEAD BRAIN VENOGRAM WWO (07/26/2024 10:12 AM CDT) Anatomical Region Laterality Modality HEAD Magnetic Resonan ce 07/26/2024 10:3 9 AM CDT Impressions 07/26/2024 10:39 AM CDT 1. No findings to suggest tumor progression. 2. Enhancement along the right temporal resection cavity margin and extending into the right temporalis muscle, not significantly changed compared to 07/03/2024. There is stable FLAIR hyperintensity within the anterior right temporal lobe. 3. No dural venous sinus thrombosis. Dictated by Naveen Salazar MD @ 07/26/2024 10:39:51 AM (Electronically Signed) Narrative 07/26/2024 10:39 AM CDT For Patients: ??As a result of the Century Cures Act, medical imaging exams and procedure reports are released immediately into your electronic medical record. ??You may view this report before your referring provider. ??If you have questions, please contact your health care provider. Indication Glioblastoma. Technique MRI brain: Multiplanar multisequence MR imaging prior to and following intravenous contrast. MRV head: T1, [id number], T1 post-contrast MRV images of the head. COMPARISON: MRI brain 07/03/2024. FINDINGS: Postsurgical changes of right frontotemporal parietal craniotomy with resection cavity in right temporal lobe demonstrate interval maturation. Shallow fluid collection subjacent to the craniotomy flap, not significantly changed. Blood products within the resection cavity demonstrating intrinsic T1 hyperintense signal. Relatively thin enhancement is again visualized along the resection cavity. No enlarging pathologic intracranial enhancement. Stable heterogeneous enhancement extending through the craniotomy flap into the overlying temporalis muscle measuring up to 1.4 cm (series 6 image 67). [id number] FLAIR hyperintensity within the anterior right temporal lobe, unchanged. No concerning areas of hyperperfusion. Mild diffuse cerebral volume loss. No midline shift. Minimal FLAIR hyperintensities in the supratentorial white matter, nonspecific. No diffusion restriction to suggest acute infarction. The major arterial flow voids of the skullbase are preserved. The globes are symmetric. The paranasal sinuses are well aerated. Minimal right mastoid fluid. MRV head: The major dural venous sinuses including superior sagittal sinus, straight sinus, transverse sinuses, and sigmoid sinuses are widely patent and without evidence for thrombosis. The internal cerebral veins, basal veins of Tanner, and vein of Arthur are patent. Procedure Note Naveen Salazar MD - 07/26/2024 For Patients: As a result of the Cures Act, medical imagingexams and procedure reports are released immediately into your electronicmedical record. You may view this report before your referring provider.If you have questions, please contact your health care provider. Indication Glioblastoma. Technique MRI brain: Multiplanar multisequence MR imaging prior to and followingintravenous contrast. MRV head: T1, [id number], T1 post-contrast MRV images of the head. COMPARISON: MRI brain 07/03/2024. FINDINGS: Postsurgical changes of right frontotemporal parietal craniotomy withresection cavity in right temporal lobe demonstrate interval maturation.Shallow fluid collection subjacent to the craniotomy flap, notsignificantly changed. Blood products within the resection cavitydemonstrating intrinsic T1 hyperintense signal. Relatively thinenhancement is again visualized along the resection cavity. No enlargingpathologic intracranial enhancement. Stable heterogeneous enhancementextending through the craniotomy flap into the overlying temporalis musclemeasuring up to 1.4 cm (series 6 image 67). Usbba-dl-bwyfenmu FLAIR hyperintensity within the anterior right temporallobe, unchanged. No concerning areas of hyperperfusion. Mild diffuse cerebral volume loss. No midline shift. Minimal FLAIRhyperintensities in the supratentorial white matter, nonspecific. Nodiffusion restriction to suggest acute infarction. The major arterial flow voids of the skullbase are preserved. The globesare symmetric. The paranasal sinuses are well aerated. Minimal rightmastoid fluid. MRV head: The major dural venous sinuses including superior sagittal sinus, straightsinus, transverse sinuses, and sigmoid sinuses are widely patent andwithout evidence for thrombosis. The internal cerebral veins, basal veins of Tanner, and vein of Galenare patent. IMPRESSION: 1. No findings to suggest tumor progression. 2. Enhancement along the right temporal resection cavity margin andextending into the right temporalis muscle, not significantly changedcompared to 07/03/2024. There is stable FLAIR hyperintensity within theanterior right temporal lobe. 3. No dural venous sinus thrombosis. Dictated by Naveen Salazar MD @ 07/26/2024 10:39:51 AM (Electronically Signed) Shannon Ryder DO MR * MR HEAD W WO CONT W PERFUSION (07/26/2024 10:03 AM CDT) Only the most recent of2 resultswithin the time period is included. Anatomical Region Laterality Modality BRAIN Magnetic Resonan ce 07/26/2024 10:3 9 AM CDT Impressions 07/26/2024 10:39 AM CDT 1. No findings to suggest tumor progression. 2. Enhancement along the right temporal resection cavity margin and extending into the right temporalis muscle, not significantly changed compared to 07/03/2024. There is stable FLAIR hyperintensity within the anterior right temporal lobe. 3. No dural venous sinus thrombosis. Dictated by Naveen Salazar MD @ 07/26/2024 10:39:33 AM (Electronically Signed) Narrative 07/26/2024 10:39 AM CDT For Patients: ??As a result of the 21st Century Cures Act, medical imaging exams and procedure reports are released immediately into your electronic medical record. ??You may view this report before your referring provider. ??If you have questions, please contact your health care provider. Indication Glioblastoma. Technique MRI brain: Multiplanar multisequence MR imaging prior to and following intravenous contrast. MRV head: T1, [id number], T1 post-contrast MRV images of the head. COMPARISON: MRI brain 07/03/2024. FINDINGS: Postsurgical changes of right frontotemporal parietal craniotomy with resection cavity in right temporal lobe demonstrate interval maturation. Shallow fluid collection subjacent to the craniotomy flap, not significantly changed. Blood products within the resection cavity demonstrating intrinsic T1 hyperintense signal. Relatively thin enhancement is again visualized along the resection cavity. No enlarging pathologic intracranial enhancement. Stable heterogeneous enhancement extending through the craniotomy flap into the overlying temporalis muscle measuring up to 1.4 cm (series 6 image 67). [id number] FLAIR hyperintensity within the anterior right temporal lobe, unchanged. No concerning areas of hyperperfusion. Mild diffuse cerebral volume loss. No midline shift. Minimal FLAIR hyperintensities in the supratentorial white matter, nonspecific. No diffusion restriction to suggest acute infarction. The major arterial flow voids of the skullbase are preserved. The globes are symmetric. The paranasal sinuses are well aerated. Minimal right mastoid fluid. MRV head: The major dural venous sinuses including superior sagittal sinus, straight sinus, transverse sinuses, and sigmoid sinuses are widely patent and without evidence for thrombosis. The internal cerebral veins, basal veins of Tanner, and vein of Arthur are patent. Procedure Note Naveen Salazar MD - 07/26/2024 For Patients: As a result of the Cures Act, medical imagingexams and procedure reports are released immediately into your electronicmedical record. You may view this report before your referring provider.If you have questions, please contact your health care provider. Indication Glioblastoma. Technique MRI brain: Multiplanar multisequence MR imaging prior to and followingintravenous contrast. MRV head: T1, [id number], T1 post-contrast MRV images of the head. COMPARISON: MRI brain 07/03/2024. FINDINGS: Postsurgical changes of right frontotemporal parietal craniotomy withresection cavity in right temporal lobe demonstrate interval maturation.Shallow fluid collection subjacent to the craniotomy flap, notsignificantly changed. Blood products within the resection cavitydemonstrating intrinsic T1 hyperintense signal. Relatively thinenhancement is again visualized along the resection cavity. No enlargingpathologic intracranial enhancement. Stable heterogeneous enhancementextending through the craniotomy flap into the overlying temporalis musclemeasuring up to 1.4 cm (series 6 image 67). Arbuj-ep-[id number] FLAIR hyperintensity within the anterior right temporallobe, unchanged. No concerning areas of hyperperfusion. Mild diffuse cerebral volume loss. No midline shift. Minimal FLAIRhyperintensities in the supratentorial white matter, nonspecific. Nodiffusion restriction to suggest acute infarction. The major arterial flow voids of the skullbase are preserved. The globesare symmetric. The paranasal sinuses are well aerated. Minimal rightmastoid fluid. MRV head: The major dural venous sinuses including superior sagittal sinus, straightsinus, transverse sinuses, and sigmoid sinuses are widely patent andwithout evidence for thrombosis. The internal cerebral veins, basal veins of Tanner, and vein of Galenare patent. IMPRESSION: 1. No findings to suggest tumor progression. 2. Enhancement along the right temporal resection cavity margin andextending into the right temporalis muscle, not significantly changedcompared to 07/03/2024. There is stable FLAIR hyperintensity within theanterior right temporal lobe. 3. No dural venous sinus thrombosis. Dictated by Naveen Salazar MD @ 07/26/2024 10:39:33 AM (Electronically Signed) Shannon Ryder DO MR * (ABNORMAL) LIPID PANEL W REFLEX MEASURED LDL (02/11/2014 8:12 AM CDT) CHOLESTEROL,TOTA L 257(H) 100 - 199 mg/dL [facility] TRIGLYCERIDES 514(H) <150 mg/dL [facility] HDL CHOLESTEROL 54 >40 mg/dL [facility] CHOL/HDL RATIO 4.76(H) <4.50 [facility] NON-HDL CHOLESTEROL 203 Undefined mg/dL [facility] LDL CHOLESTEROL ?? Invalid LDL when Trig >400 reflexed to measured LDL. [facility] PATIENT STATUS Fasting [facility] Blood specimen (specimen) BLOOD SPECIMEN / Unknown 02/11/2014 8:12 AM CDT 02/11/2014 8:06 AM CDT Anali Bailey MD CHEMISTRY [facility] INTERNAL ZIP [id number] [place] [address] from Last 3 Months or Most Recently Relevant to Health Maintenance Additional Health Concerns Infection Onset Date Last Indicated MRSA Comment:Order Contact Precaution Nares surveillance cultures needed to clear patient if <12 months since positive culture. If >12 months since positive culture, precautions can be discontinued if patient has no MRSA risk factors. 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, receiving hemodialysis, has chronic open wounds/skin damage, has long-term percutaneous indwelling medical devices Exclusions for nares collection (if <12 months since positive culture) include all of the previous exclusions plus patients on antibiotics 7 days prior to collection 11/28/2017 11/28/2017 Advance Directives Documents on File Type Date Recorded Patient Application Packaging Consultant Expl anation Healthcare Directive 04/25/2024 INVALID , MISSING PAGE, 04/25/2024 * Full Code (Latest Code Status on File) Date Activated Date Inactivated Comments 04/17/2024 8:30 AM 04/29/2024 4:53 PM Question Answer Comments Code Status Discussion: Reviewed Preferences * Full Code Date Activated Date Inactivated Comments 12/22/2016 11:17 PM 12/24/2016 8:25 PM Question Answer Comments Code Status Discussion: Per Existing Order Care Teams Director Stars Relationship Specialty Start Date End Date Rodrigo Hughes MD [address] [place] [address] PCP - General Family Practice 05/01/24 Trini Pearson RN [address] [address] Nurse Navigator - Oncology Registered Nurse 05/01/24 Shannon Ryder DO [address] [address] Neurooncology Neurology 05/01/24 Jacobo Flores NP [address] [address] Neurooncology Nurse Practitioner - Family 05/01/24
[2024-08-14] MEDS: OXYCODONE 5 MG TABLET PO ×3 (15:03→22:32)
--- NOTE | 2024-08-14 15:40 | PM.ORPRC ---
Procedure Note Provider Contact Time: 15:05 Date of procedure: 08/14/24 Pre-op diagnosis: Left elbow olecranon bursitis Post-op diagnosis: same Procedure: Informed consent was obtained for left elbow olecranon bursitis aspiration. Risks and benefits were discussed with the patient. All questions were answered. Left elbow was cleansed with a Chloraprep. Ethyl chloride was applied and using a 16 gauge needle, approximately 5cc purulent fluid was aspirated from the left olecranon bursa. This was sent to pathology for culture and sensitivity and gram staining. Band-aid and osmany wrap was applied. I was not able to fully aspirate all the purulent fluid within his left elbow due to intolerable pain during the procedure and patient requesting I stop. I'd estimate another 5-10cc of purulent fluid remain within the bursa. Dr. Quezada and I discussed with the patient the option of a repeat aspiration with sedation in the ED. We discussed the benefits for aspirating the remaining purulent drainage within this bursa. Patient declined stating the first aspiration was too painful. Eleuterio will be admitted for IV antibiotics. I will plan on seeing Eleuterio tomorrow and again offering a repeat aspiration. Anesthesia: none Laundry Supervisor: Daniela Slade Estimated blood loss (mL): 1 Pathology: specimen obtained, sent to pathology Condition: stable
[2024-08-14] MEDS: HYDROmorphone 0.5 mg/0.5 ml inj IVP ×2 (15:42→20:35)
[2024-08-14] MEDS: VANCOMYCIN 2 GM/400 ML 2 GM/400 ML PIGGYBACK IVPB (16:01)
--- NOTE | 2024-08-14 16:45 | PM.IMHP1 ---
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 Since then he has had chemo radiation therapy, most recently received TMZ 6 days ago. Additional pertinent past medical history remarkable for alcohol use disorder with patient drinking 3 cans of beer daily. Presented to the clinic today with complaint of left arm swelling which started 3 days prior to today. Initially had swelling only in later developed redness and discomfort to palpation as well. Acknowledges intermittent chills and feeling feverish but not documenting any fevers. In the emergency department today they were able to discern that he has left olecranon bursitis. Orthopedic surgery was able to perform a needle aspirate of the olecranon bursa drying out 5 mL of purulent aspirate. It is recommended that patient be admitted to observation overnight and initiate IV vancomycin pending Gram staining, culture results, and MRSA nasal swab screening. Review of Systems Status of ROS: Reports: 6 or more systems reviewed and unremarkable except as noted in History and below Narrative: He tells me he has had a 40 lb waking since starting dexamethasone. Unable to utilize his prosthesis for above the knee amputation due to increased weight. Hence he has not been able to work for a while. Working closely with the neuro oncologist at [facility] in the [facility]. 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 Not using his CPAP Previously drinking 3 beers daily, and states he has cut this amount down to 1 can per night. Not utilizing any tobacco products. He requests full resuscitation in event of cardiopulmonary demise. He designates his parents as his power of environmental attorney for health should that be required. His mother's name is Mona and her cell phone number is [phone]. His father's name is Terrence and his cell phone number is [phone]. [facility] Medical History (Updated 08/14/24 @ 17:31 by Nasir Smiley MD) Alcohol abuse ?F10.10 - Alcohol abuse, uncomplicated (ICD-10) Family history of colon cancer ?Z80.0 - Family history of malignant neoplasm of digestive organs (ICD-10) Erectile dysfunction ?N52.9 - Male erectile dysfunction, unspecified (ICD-10) Drug dependence ?F19.20 - Other psychoactive substance dependence, uncomplicated (ICD-10) Elevated liver enzymes ?R74.8 - Abnormal levels of other serum enzymes (ICD-10) Seasonal allergies ?J30.2 - Other seasonal allergic rhinitis (ICD-10) Adenomatous polyp of colon ?D12.6 - Benign neoplasm of colon, unspecified (ICD-10) Depression ?F32.A - Depression, unspecified (ICD-10) Anxiety ?F41.9 - Anxiety disorder, unspecified (ICD-10) Peripheral neuropathy ?G62.9 - Polyneuropathy, unspecified (ICD-10) Low back pain potentially associated with radiculopathy ?M54.50 - Low back pain, unspecified (ICD-10) Sleep apnea ?G47.30 - Sleep apnea, unspecified (ICD-10) Hypertension ?I10 - Essential (primary) hypertension (ICD-10) Hyperlipidemia ?E78.5 - Hyperlipidemia, unspecified (ICD-10) Fatty liver ?K76.0 - Fatty (change of) liver, not elsewhere classified (ICD-10) Balance problems ?R26.89 - Other abnormalities of gait and mobility (ICD-10) Glioblastoma of parietal lobe ?C71.3 - Malignant neoplasm of parietal lobe (ICD-10) Obesity (BMI 30-39.9) ?E66.9 - Obesity, unspecified (ICD-10) Surgical History H/O lower limb amputation ?Z89.619 - Acquired absence of unspecified leg above knee (ICD-10) S/P craniotomy ?Z98.890 - Other specified postprocedural states (ICD-10) Status post above-knee amputation of right lower extremity ?Z89.611 - Acquired absence of right leg above knee (ICD-10) History of oral surgery (05/21/12) ?Z98.890 - Other specified postprocedural states (ICD-10) Social History What is your current living situation?: I presently have a place to live Problems where you live: no known problems Problems where you live details: N/A In the past 12 months, utilities in danger of being shut off: no In past 12 months, lack of transportation kept you from medical appts, meetings, work, or getting things needed for daily living: no In the past 12 mos, have been you worried that your food would run out before you had money to buy more?: never true In the past 12 mos, the food you bought just didn't last and you didn't have money to buy more?: never true Highest level of school completed/degree received: high school graduate Smoking Status: Never smoker How often do you have a drink containing alcohol: never AUDIT-C Alcohol total score: 0 Non-prescribed substance use: denies use How often does anyone, including family, friends and others, physically hurt you: never How often does anyone, including family, friends and others, insult or talk down to you: never How often does anyone, including family, friends and others, threaten you with harm: never How often does anyone, including family, friends and others, scream or curse at you: never Little interest or pleasure in doing things: not at all Feeling down, depressed, or hopeless: not at all service: No Meds Home Medications and Allergies Home Medications ?Medication ?Instructions ?Recorded ?Confirmed ?Type ibuprofen 200 mg tablet (Advil) 400 mg PO .4-6X/DAY PRN 04/15/24 08/14/24 History aluminum chloride 20 % topical 1 applic topical QHS 08/14/24 08/14/24 History solution dexamethasone 2 mg tablet 1 mg PO DAILY 08/14/24 08/14/24 History famotidine 20 mg tablet 20 mg PO DAILY 08/14/24 08/14/24 History levetiracetam 500 mg tablet 500 mg PO BID 08/14/24 08/14/24 History loratadine-pseudoephedrine ER 10 1 tab PO DAILY PRN 08/14/24 08/14/24 History mg-240 mg tablet,extended [id number] (Claritin-D 24 Hour) sildenafil (pulm.hypertension) 20 20 mg PO DAILY 08/14/24 08/14/24 History mg tablet topiramate 25 mg tablet 25 - 50 mg PO BID 08/14/24 08/14/24 History Allergies Allergy/AdvReac Type Severity Reaction Status Date / Time No Known Drug Allergies Allergy Verified 08/14/24 11:47 Exam Narrative: Exam Narrative: Exam patient emergency department. Appears uncomfortable. Vision and hearing are adequate. Alert and oriented x4. Friendly, articulate, cooperative. External auditory canals and tympanic membranes are normal. Midline nasal septum. Dentition fair repair. Mallampati class 4 airway. No icterus or conjunctival injection. Conjugate gaze. Pupils equally round and reactive to light and accommodation. Neck is full. Midline trachea. No head neck lymphadenopathy. Apple shaped obesity. Lungs are clear to auscultation without wheezing, rhonchi, rales. Chest wall excursions are full. No CVA tenderness to thumping. Heart tones with regular rhythm, normal S1-S2. No obvious murmur, gallop, or rub. PMI not laterally displaced. Abdomen is obese with active bowel sounds, soft, nontender. Right above the knee amputation. Left lower extremity without edema. Bilateral upper extremity with multiple superficial scratches, which he indicates he acquired from his young puppy. I examine the left elbow after orthopedic surgery needle aspiration. It is covered with a dressing. Complains of pain with motion. Edema all the way to the fingers on the left hand. Const: Vital Signs, click to edit/add: Vital Signs - 24 hr 08/14/24 12:17 08/14/24 12:52 08/14/24 12:57 Temperature 99.9 F H Pulse Rate 86 Pulse Rate [Left P ulse Oximeter] 95 Respiratory Rate 18 Blood Pressure Blood Pressure [Ri ght Upper Arm] 154/80 H Pulse Oximetry 93 95 92 Oxygen Delivery Ak thod Room Air 08/14/24 13:00 08/14/24 13:48 08/14/24 14:00 Temperature Pulse Rate 96 80 82 Pulse Rate [Left P ulse Oximeter] Respiratory Rate Blood Pressure Blood Pressure [Ri ght Upper Arm] Pulse Oximetry 90 94 93 Oxygen Delivery Me thod 08/14/24 14:15 08/14/24 14:16 08/14/24 14:22 Temperature Pulse Rate 81 84 84 Pulse Rate [Left P ulse Oximeter] Respiratory Rate Blood Pressure 128/78 131/74 Blood Pressure [Ri ght Upper Arm] Pulse Oximetry 93 95 95 Oxygen Delivery Me thod 08/14/24 14:23 08/14/24 14:30 08/14/24 14:33 Temperature Pulse Rate 85 83 81 Pulse Rate [Left P ulse Oximeter] Respiratory Rate Blood Pressure 126/80 Blood Pressure [Ri ght Upper Arm] Pulse Oximetry 95 94 95 Oxygen Delivery Me thod 08/14/24 14:42 08/14/24 14:45 08/14/24 14:52 Temperature Pulse Rate 81 87 81 Pulse Rate [Left P ulse Oximeter] Respiratory Rate Blood Pressure 126/84 132/80 Blood Pressure [Ri ght Upper Arm] Pulse Oximetry 95 95 95 Oxygen Delivery Me thod 08/14/24 15:00 08/14/24 15:02 08/14/24 15:02 Temperature Pulse Rate 83 86 86 Pulse Rate [Left P ulse Oximeter] Respiratory Rate Blood Pressure 131/72 131/72 Blood Pressure [Ri ght Upper Arm] Pulse Oximetry 93 93 93 Oxygen Delivery Ak thod 08/14/24 15:02 08/14/24 15:12 08/14/24 15:22 Temperature Pulse Rate 86 Pulse Rate [Left P ulse Oximeter] Respiratory Rate Blood Pressure 131/72 136/76 139/76 Blood Pressure [Ri ght Upper Arm] Pulse Oximetry [facility] 08[facility] 15:22 08/14/24 15:33 08/14/24 15:43 Temperature Pulse Rate Pulse Rate [Left P ulse Oximeter] Respiratory Rate Blood Pressure 139/76 136/77 139/77 Blood Pressure [Ri ght Upper Arm] Pulse Oximetry Oxygen Delivery Me od 08/14/24 15:48 08/14/24 15:52 Temperature Pulse Rate 82 86 Pulse Rate [Left P ulse Oximeter] Respiratory Rate Blood Pressure 129/78 Blood Pressure [Ri ght Upper Arm] Pulse Oximetry 96 97 Oxygen Delivery Me od Hospitalist - H&P: Result Labs Labs: Total white blood cell count 7.1 with absolute neutrophil count of 6.1. Hemoglobin 11.7 with hematocrit of 35%. Platelet count 68487. Chemistries normal including lactate of 1.3. Assessment and Plan Assessment and plan (1) Septic olecranon bursitis of left elbow: Problem comment: - 08/14/24 Orthopedic surgery obtained needle aspirate of purulent fluid sent to microbiology lab for gram stain and culture - Orthopedic surgery, Dr. Tejinder Myers, following with hospitalist team - 08/14/24 Nasal MRSA screen obtained with results pending - 08/14/24 initiated vancomycin 2 g IV with pharmacy consultation for on-going infusions pending microbiology findings and clinical response Status: Acute (2) Cellulitis: Problem comment: - as noted in Septic olecranon bursitis of left elbow entry Status: Acute (3) History of MRSA infection: Problem comment: - 2017, 2018, and most recently 2019 at [facility]. - 08/14/24 nasal MRSA swab obtained Status: Acute (4) Glioblastoma of parietal lobe: Problem comment: - Dx 03/2024, Resected 04/18/2024 - Plan to complete 6 adjuvant chemotherapy cycles with TMZ Status: Acute (5) Obesity (BMI 30-39.9): Status: Acute (6) H/O lower limb amputation: Status: Acute (7) Balance problems: Problem comment: - due to R AKA - PT consultation Status: Acute (8) Alcohol abuse: Problem comment: - Alcohol and marijuana with treatment in October, - Was drinking 3 cans beer/day - 08/14/24 indicates he cut down to 1 beer daily Status: Acute (9) Sleep apnea: Problem comment: - Not using his CPAP Status: Acute Plan 1. Reviewed impression and plans with patient. 2. Answered his questions. 3. He is agreeable with above stated plans and recommendations. Total Time Spent Total Time Spent: 70 minutes
[2024-08-14] MEDS: IBUPROFEN 200 MG TABLET 600 MG PO (17:49)
[2024-08-14] MEDS: levETIRAcetam 500 MG TABLET PO (19:08)
[2024-08-14] MEDS: GABAPENTIN 300 MG CAPSULE 900 MG PO (19:08)
--- NOTE | 2024-08-14 23:11 | PC.NURSE ---
End of Shift: Patient admitted to 262. Pleasant and cooperative. Rating pain left arm 2/10 and headache 8/10. Updated MD. PRN Oxycodone given x2, Ibuprofen and Dilaudid x1 throughout shift. Pt using urinal at bedside. Tolerating regular diet with no nausea. Mann wrap to left arm C/D/I, elevated on pillows. Patient became flushed with vancomycin administration, updated MD and slowed rate on infusion by half.
[2024-08-14] MEDS: GABAPENTIN 300 MG CAPSULE 1200 MG PO (23:49)
[2024-08-15] MEDS: HYDROmorphone 0.5 mg/0.5 ml inj IVP ×2 (00:01→10:55)
[2024-08-15 00:52] VITALS: PULSE 74
[2024-08-15] MEDS: IBUPROFEN 200 MG TABLET 600 MG PO ×5 (01:02→22:44)
[2024-08-15 03:47] VITALS: BP 128/88; PULSE 84; RESP 18; TEMP 36.8; O2SAT 95
[2024-08-15] MEDS: OXYCODONE 5 MG TABLET PO ×5 (03:49→20:41)
[2024-08-15] MEDS: 0.9 % SODIUM CHLORIDE 250 ml IV (03:55)
[2024-08-15] MEDS: levETIRAcetam 500 MG TABLET PO ×2 (06:25→18:00)
[2024-08-15 07:00] VITALS: BP 124/67; PULSE 64; RESP 18; TEMP 36.8; O2SAT 94
--- NOTE | 2024-08-15 08:09 | PC.NURSE ---
Pt alert and oriented x3. Afebrile. Pt reports 8/10 headache pain, and 5/10 left elbow pain, pain managed with PRN medications. Pt's left elbow osmany wrap is CDI, left arm place on pillow to help with edema/swelling, left hand cap refill <3, radial pulse +3. Pt ind pivots from bed to wheelchair, uses urinal to void, and is tolerating a regular diet. Pt slept intermittently throughout night.
[2024-08-15 08:15] LABS: Lactate* 0.7 mmol/L (0.5-1.9)
[2024-08-15 08:18] LABS: Eosinophils Absolute Auto 0.01 K/uL (0.00-0.50); Eosinophils Percent Auto 0.1 % (0.0-7.0); Hematocrit 31.1 % (37.0-53.0); Hemoglobin* 10.4 gm/dL (13.5-17.5); Immature Granulocytes Abs Auto 0.36 K/uL (0.00-0.30); Immature Granulocytes Pct Auto 5.4 %; Lymphocytes Percent Auto 12.2 % (20-44); Mean Corpuscular HGB Conc 33 gm/dL (32-36); Mean Corpuscular Hemoglobin 36 pg (26-34); Mean Corpuscular Volume 108 fL (80-100); Monocytes Percent Auto 6.7 % (0.0-11.0); Neutrophils Percent Auto 75.6 % (42.0-72.0); Platelet Count* 105 K/uL (140-440); RDW Coefficient of Variation % 14.5 % (11.5-15.5); Red Blood Count 2.88 m/uL (4.30-5.90); White Blood Count* 6.72 K/uL (4.50-11.00)
--- NOTE | 2024-08-15 08:19 | P.ORPN_ITS ---
Subjective Subjective Time Seen by Provider: 07:30 Date Seen: 08/15/24 Principal diagnosis: Left elbow septic olecranon bursitis Interval history: Eleuterio is resting comfortably in his bed. Left upper extremity warmth, erythema and left elbow pain has improved. Left hand edema was worsened. Patient c/o tightness with gripping. Drainage present through left elbow osmany bandage and present on two Mepilex dressings. Denies fever, chills. Ortho Exam Narrative Exam Narrative: Left elbow exam: Left elbow erythema, warmth, tenderness improved in comparison to yesterday. Yesterday, Eleuterio has erythema originating mid-humerus extending distally. This has improved. Visible purulent drainage from aspiration pinpoint opening. Fluctuance present within olecranon bursa. Significant left hand edema, worse in comparison to yesterday. CMS intact with 2+ radial pulse. [employer], warm digits with brisk capillary refill. Const Vital Signs, click to edit/add: Vital Signs - 24 hr 08/14/24 12:17 08/14/24 12:52 08/14/24 12:57 Temperature 99.9 F H Pulse Rate 86 Pulse Rate [Left Pulse Oximeter] 95 Respiratory Rate 18 Blood Pressure Blood Pressure [Right Arm] Blood Pressure [Right Upper Arm] 154/80 H Pulse Oximetry 93 95 92 Oxygen Delivery Method Room Air 08/14/24 13:00 08/14/24 13:48 08/14/24 14:00 Temperature Pulse Rate 96 80 82 Pulse Rate [Left Pulse Oximeter] Respiratory Rate Blood Pressure Blood Pressure [Right Arm] Blood Pressure [Right Upper Arm] Pulse Oximetry 90 94 93 Oxygen Delivery Method 08/14/24 14:15 08/14/24 14:16 08/14/24 14:22 Temperature Pulse Rate 81 84 84 Pulse Rate [Left Pulse Oximeter] Respiratory Rate Blood Pressure 128/78 131/74 Blood Pressure [Right Arm] Blood Pressure [Right Upper Arm] Pulse Oximetry 93 95 95 Oxygen Delivery Method 08/14/24 14:23 08/14/24 14:30 08/14/24 14:33 Temperature Pulse Rate 85 83 81 Pulse Rate [Left Pulse Oximeter] Respiratory Rate Blood Pressure 126/80 Blood Pressure [Right Arm] Blood Pressure [Right Upper Arm] Pulse Oximetry 95 94 95 Oxygen Delivery Method 08/14/24 14:42 08/14/24 14:45 08/14/24 14:52 Temperature Pulse Rate 81 87 81 Pulse Rate [Left Pulse Oximeter] Respiratory Rate Blood Pressure 126/84 132/80 Blood Pressure [Right Arm] Blood Pressure [Right Upper Arm] Pulse Oximetry 95 95 95 Oxygen Delivery Method 08/14/24 15:00 08/14/24 15:02 08/14/24 15:02 Temperature Pulse Rate 83 86 86 Pulse Rate [Left Pulse Oximeter] Respiratory Rate Blood Pressure 131/72 131/72 Blood Pressure [Right Arm] Blood Pressure [Right Upper Arm] Pulse Oximetry 93 93 93 Oxygen Delivery Method 08/14/24 15:02 08/14/24 15:12 08/14/24 15:22 Temperature Pulse Rate 86 Pulse Rate [Left Pulse Oximeter] Respiratory Rate Blood Pressure 131/72 136/76 139/76 Blood Pressure [Right Arm] Blood Pressure [Right Upper Arm] Pulse Oximetry 93 Oxygen Delivery Method 08/14/24 15:22 08/14/24 15:33 08/14/24 15:43 Temperature Pulse Rate Pulse Rate [Left Pulse Oximeter] Respiratory Rate Blood Pressure 139/76 136/77 139/77 Blood Pressure [Right Arm] Blood Pressure [Right Upper Arm] Pulse Oximetry Oxygen Delivery Method 08/14/24 15:48 08/14/24 15:52 08/14/24 17:06 Temperature 98.6 F Pulse Rate 82 86 Pulse Rate [Left Pulse Oximeter] 86 Respiratory Rate 20 Blood Pressure 129/78 Blood Pressure [Right Arm] 153/82 H Blood Pressure [Right Upper Arm] Pulse Oximetry 96 97 97 Oxygen Delivery Method Room Air 08/14/24 19:00 08/14/24 23:52 08/15/24 00:52 Temperature 98.4 F 98.4 F Pulse Rate Pulse Rate [Left Pulse Oximeter] 79 74 74 Respiratory Rate 20 16 Blood Pressure Blood Pressure [Right Arm] 135/88 143/84 H Blood Pressure [Right Upper Arm] Pulse Oximetry 96 94 Oxygen Delivery Method Room Air Room Air 08/15/24 03:47 Temperature 98.2 F Pulse Rate Pulse Rate [Left Pulse Oximeter] 84 Respiratory Rate 18 Blood Pressure Blood Pressure [Right Arm] 128/88 Blood Pressure [Right Upper Arm] Pulse Oximetry 95 Oxygen Delivery Method Room Air Assessment and Plan Assessment and plan (1) Septic olecranon bursitis of left elbow: Problem details: - 08/14/24 Orthopedic surgery obtained needle aspirate of purulent fluid sent to microbiology lab for gram stain and culture - Orthopedic surgery, Dr. Tejinder Myers, following with hospitalist team - 08/14/24 Nasal MRSA screen obtained with results pending - 08/14/24 initiated vancomycin 2 g IV with pharmacy consultation for on-going infusions pending microbiology findings and clinical response Status: Acute Assessment and Plan: I returned to check on Eleuterio again at 1400 today. He continues to have visible purulent drainage from the pinpoint opening. Eleuterio would benefit from a left elbow olecranon bursectomy. We briefly discussed the procedure, risks and benefits. Eleuterio is interested in proceeding with surgical intervention. Patient will be NPO overnight. We will plan on surgery tomorrow morning (08/16/24) with Dr. Harry Mathew who will consult with the patient in the morning to discuss the surgery, obtain consent and address any questions the patient may have.
[2024-08-15 08:24] LABS: Slide Review Reflex No
[2024-08-15] MEDS: GABAPENTIN 300 MG CAPSULE 900 MG PO ×2 (08:24→14:09)
[2024-08-15] MEDS: dexAMETHasone 2 MG TABLET 1 MG PO (08:25)
[2024-08-15] MEDS: LOSARTAN POTASSIUM 50 MG TABLET 100 MG PO (08:25)
[2024-08-15] MEDS: FLUOXETINE HCL 20 MG CAPSULE 40 MG PO (08:27)
[2024-08-15] MEDS: FAMOTIDINE 20 MG TABLET PO (08:28)
[2024-08-15 08:34] LABS: Chloride* 103 mmol/L (96-114); Potassium* 3.7 mmol/L (3.6-5.1)
[2024-08-15 08:35] LABS: Sodium* 135 mmol/L (135-149)
[2024-08-15 08:37] LABS: Anion Gap 5 mEq/L (7-15); Blood Urea Nitrogen* 18 mg/dL (7-30); Carbon Dioxide* 27 mmol/L (20-32); Creatinine* 0.5 mg/dL (0.5-1.5); Estimated Glomerular Filt Rate 124 ml/min
[2024-08-15 08:38] LABS: Calcium* 8.8 mg/dL (8.4-10.6); Glucose* 86 mg/dL (60-115)
[2024-08-15 08:55] LABS: C Reactive Protein* 20.4 mg/dL (0.5-1.0)
[2024-08-15] MEDS: NALTREXONE HCL 50 MG TABLET PO (09:38)
[2024-08-15] MEDS: SILDENAFIL CITRATE 20 MG TABLET PO (09:38)
--- NOTE | 2024-08-15 10:39 | REH.PT ---
Pt ind with transfers in/out of w/c pivoting on L LE. Non-amb at this time. Skilled PT not warranted. D/C orders.
[2024-08-15 11:00] VITALS: BP 140/80; PULSE 73; RESP 18; TEMP 36.8; O2SAT 96
[2024-08-15 15:00] VITALS: PULSE 73; RESP 18
[2024-08-15] MEDS: VANCOMYCIN 2 GM/400 ML 2 GM/400 ML PIGGYBACK IVPB (15:44)
--- NOTE | 2024-08-15 15:51 | P.IMPN_ITS ---
Progress Note: A&P Assessment and plan (1) Septic olecranon bursitis of left elbow: Problem details: - 08/14/24 Orthopedic surgery obtained needle aspirate of purulent fluid sent to microbiology lab for gram stain and culture - Orthopedic surgery, Dr. Tejinder Myers, following with hospitalist team - 08/14/24 Nasal MRSA screen obtained with results pending - 08/14/24 initiated vancomycin 2 g IV with pharmacy consultation for on-going infusions pending microbiology findings and clinical response. Probable washout of the bursa with Orthopedic surgery tomorrow, August 16 Status: Acute (2) Cellulitis: Problem details: - as noted in Septic olecranon bursitis of left elbow entry. Clinically improving Status: Acute (3) History of MRSA infection: Problem details: - 2016, 2018, and most recently 2019 at [place]. - 08/14/24 nasal MRSA swab obtained Pending cultures continue treatment for MRSA with vancomycin Status: Acute (4) Glioblastoma of parietal lobe: Problem details: - Dx 03/2024, Resected 04/18/2024 - Plan to complete 6 adjuvant chemotherapy cycles with TMZ most recent treatment was last week. Status: Acute (5) H/O lower limb amputation: Problem details: Therapy to evaluate and treat mobility Status: Acute (6) Hypertension: Problem details: Continue home medication Status: Acute (7) Sleep apnea: Problem details: - Not using his CPAP Status: Acute (8) Immunocompromised: Problem details: On chemotherapy and dexamethasone taper. Status: Acute Plan Continue in hospital for IV antibiotics and probable surgical I&D/washout of his infected bursa. Time Spent With Patient Total time spent: Total time spent today is 45 minutes in evaluation management discussing with patient and other providers ongoing evaluation management Subjective Date Seen: 08/15/24 Interval history: Eleuterio Tafoya is a 49 year old man with known right temporal glioblastoma status post right craniotomy surgical resection on 04/18/2024 with postsurgical MRI demonstrating gross total surgical resection, and hospital course complicated by septic shock due to Morganella morganii bacteremia likely related to right above the knee stump infection. Since then he has had chemo radiation therapy, most recently received TMZ 6 days ago. Additional pertinent past medical history remarkable for alcohol use disorder with patient drinking 3 cans of beer daily. Presented to the clinic today with complaint of left arm swelling which started 3 days prior to today. Initially had swelling only in later developed redness and discomfort to palpation as well. Acknowledges intermittent chills and feeling feverish but not documenting any fevers. In the emergency department today they were able to discern that he has left olecranon bursitis. Orthopedic surgery was able to perform a needle aspirate of the olecranon bursa drying out 5 mL of purulent aspirate. It is recommended that patient be admitted to observation overnight and initiate IV vancomycin pending Gram staining, culture results, and MRSA nasal swab screening. 08/15/2024: Patient reports feeling better since admission. He thinks his elbow was looking a little bit better as well. He has not had a fever. No other immediate health concerns. As noted above he has long-term health concerns related to his right AKA and ongoing chemotherapy for glioblastoma. Exam Narrative: Exam Narrative: He is alert and appears in no distress. He is oriented to his circumstances. Respirations are clear to auscultation. Cardiovascular: S1, S2, regular rate and rhythm. Left upper extremity is examined. He has moderate swelling over the olecranon bursa. Moderate erythema in that area and extending somewhat proximal and distal to that on his extensor upper arm, forearm and elbow. I am able to express a bloody thick purulent fluid from a opening in the skin where he had aspiration of his bursa yesterday. Several mL of bloody purulent fluid came out. I attempted to keep this drainage going using a 14 gauge Angiocath but that plugged up immediately and did not remain open despite flushing. Const: Vital Signs, click to edit/add: Vital Signs - 24 hr 08/14/24 15:52 08/14/24 17:06 08/14/24 19:00 Temperature 98.6 F 98.4 F Pulse Rate 86 Pulse Rate [Left P ulse Oximeter] 86 79 Respiratory Rate 20 20 Blood Pressure 129/78 Blood Pressure [Ri ght Arm] 153/82 H 135/88 Pulse Oximetry 97 97 96 Oxygen Delivery Me thod Room Air Room Air 08/14/24 23:52 08/15/24 00:52 08/15/24 03:47 Temperature 98.4 F 98.2 F Pulse Rate Pulse Rate [Left P ulse Oximeter] 74 74 84 Respiratory Rate 16 18 Blood Pressure Blood Pressure [Ri ght Arm] 143/84 H 128/88 Pulse Oximetry 94 95 Oxygen Delivery Me thod Room Air Room Air 08/15/24 07:00 08/15/24 11:00 08/15/24 15:00 Temperature 98.2 F 98.3 F Pulse Rate Pulse Rate [Left P ulse Oximeter] 64 73 73 Respiratory Rate 18 18 18 Blood Pressure Blood Pressure [Ri ght Arm] 124/67 140/80 H Pulse Oximetry 94 96 Oxygen Delivery Me thod Room Air Room Air Documenting provider has reviewed patient's vital signs: yes Labs Labs: Laboratory Results - last 24 hr 08/15/24 08:08 WBC 6.72 RBC 2.88 L Hgb 10.4 L Hct 31.1 L MCV 108 H MCH 36 H MCHC 33 RDW Coeff of Shimon 14.5 Plt Count 105 L Neut % (Auto) 75.6 H Lymph % (Auto) 12.2 L [place] % (Auto) 6.7 Eos % (Auto) 0.1 Baso % (Auto) 0.0 Neut # (Auto) 5.10 Lymph # (Auto) 0.80 L [place] # (Auto) 0.50 Eos # (Auto) 0.01 Baso # (Auto) 0.00 Abs Immat Gran (auto) 0.36 H Imm/Tot Granulo (auto) 5.4 Sodium 135 Potassium 3.7 Chloride 103 Carbon Dioxide 27 Anion Gap 5 L BUN 18 Creatinine 0.5 Estimated Creat Clear 182.50 Estimated GFR 124 Glucose 86 Lactate 0.7 Calcium 8.8 C-Reactive Protein 20.4 H
--- NOTE | 2024-08-15 18:45 | PC.NURSE ---
shift note: lt elbow red, swollen,and hot to touch. elbow draining moderate amounts of serous fluid. pt rating chronic GIL and lt elbow pain 07/06. PRN medications given with minimal relief. ICE and elevation to lt u/e provided comfort. IV x2 patent.
[2024-08-15 19:00] VITALS: BP 115/73; PULSE 60; RESP 16; TEMP 36.9; O2SAT 97
[2024-08-15] MEDS: GABAPENTIN 300 MG CAPSULE 1200 MG PO (20:40)
--- NOTE | 2024-08-15 23:46 | PC.NURSE ---
[id number] end of shift: Pt AxO x4, pleasant, and cooperative. Pt L elbow red, swollen,and hot to touch. Mepilex applied with no drainage present. Pt rated chronic headache 8/10 and no pain in L elbow. L hand edema went down to 2+ pitting. PRN pain medication given upon Pts request for headache. ICE and elevation to LUE. Pt IV in R thumb was accidently removed per Pt. Dam Tender Assistant discarded and cleaned up Pts hand. IV in R hand still in place, SL. Pt is resting watching television with call light in reach.
[2024-08-16] VITALS (27 sets, daily range): BP systolic 126–145; BP diastolic 74–103; PULSE 66–81; RESP 16–22; TEMP 36.2–37.1; O2SAT 92–97
[2024-08-16] MEDS: OXYCODONE 5 MG TABLET PO ×5 (01:09→22:18)
[2024-08-16] MEDS: VANCOMYCIN 2 GM/400 ML 2 GM/400 ML PIGGYBACK IVPB ×2 (03:45→16:07)
[2024-08-16] MEDS: 0.9 % SODIUM CHLORIDE 250 ml IV ×2 (03:46→16:08)
[2024-08-16] MEDS: FLUOXETINE HCL 20 MG CAPSULE 40 MG PO (06:23)
[2024-08-16] MEDS: levETIRAcetam 500 MG TABLET PO ×2 (06:23→18:36)
[2024-08-16] MEDS: NALTREXONE HCL 50 MG TABLET PO (06:24)
--- NOTE | 2024-08-16 07:09 | PC.NURSE ---
END OF SHIFT NOTE: PT A&O. RIGHT BELOW THE KNEE AMPUTATION. INDEPENDENT WITHIN ROOM WITH WC. C/O HEAD PAIN 8/10 WITH RELIEF FROM PRN OXYCODONE. PT REPORTED DRAINAGE FROM ARM. LEFT ELBOW TO BE DRAINING SANGUINEOUS AND PURULENT OUTPUT; APPROX 150CC. NEW MEPILEX PLACED. PT USES URINAL AT BEDSIDE. THIS NURSE SAW A SNUFF CAN ON PT'S BEDSIDE TABLE. PT QUICKLY REMOVED CAN AND PLACED IT UNDER RIGHT BUTTOCK. PT WAS REMINDED OF HOSPITAL TOBACCO POLICY. PT REFUSED TO GIVE TOBACCO PRODUCT TO NURSE. CHARGE NURSE AND HOUSE SUP NOTIFIED. TOBACCO REMINISCE NOTED TO BE IN [place] IN TRASH. VSS. CALL LIGHT WITHIN PT REACH.
[2024-08-16] MEDS: FAMOTIDINE 20 MG TABLET PO (09:22)
[2024-08-16] MEDS: LOSARTAN POTASSIUM 50 MG TABLET 100 MG PO (09:22)
[2024-08-16] MEDS: dexAMETHasone 2 MG TABLET 1 MG PO (09:22)
[2024-08-16] MEDS: GABAPENTIN 300 MG CAPSULE 900 MG PO ×2 (09:23→14:04)
[2024-08-16] MEDS: IBUPROFEN 200 MG TABLET 600 MG PO ×3 (10:17→22:18)
--- NOTE | 2024-08-16 10:51 | W.ANESCHARGE ---
Anesthesia Charges Start Date/Time Anesthesia Start Date: 08/16/24 Anesthesia Start Time: 10:34 Stop Date/Time Anesthesia Stop Date: 08/16/24 Anesthesia Stop Time: 12:05
[2024-08-16] MEDS: LACTATED RINGERS 1000 ML 1,000 ML 100 ML IV (11:05)
--- NOTE | 2024-08-16 11:14 | SUR.OPER ---
PATIENT QUESTIONS ANSWERED SATISFACTORILY PREOPERATIVELY. PATIENT BROUGHT TO OR #4 PER MED/SURG BED. Patient positioned supine on OR #2. The perioperative team supported right arm bilaterally on arm boards. Final approval of positioning by surgeon.
[2024-08-16] MEDS: BUPIVACAINE 0.25 %/EPI 1:200K 30 ml 10 ML INJECTION (11:32)
--- NOTE | 2024-08-16 11:39 | PM.ORPN ---
Subjective Subjective Date Seen: 08/16/24 Principal diagnosis: Left elbow septic olecranon bursitis Interval history: Patient continues to have swelling, pain, and drainage from the left olecranon bursa. Swelling drainage persisted despite treatment with IV vancomycin. No other complaints this morning. Ortho Exam Narrative Exam Narrative: General: Alert oriented no apparent distress. Musculoskeletal: Examination of the left upper extremity revealed large fluctuant area over the olecranon. Surrounding skin was warm and erythematous and there was small amount of purulent drainage from the previous aspiration site. Radial, ulnar, and median sensation intact to light touch. Fingers warm and well perfused. Const Vital Signs, click to edit/add: Vital Signs - 24 hr 08/15/24 15:00 08/15/24 19:00 08/16/24 01:00 Temperature 98.5 F Pulse Rate [Left Pulse Oximeter] 73 60 Pulse Rate [Pulse Oximeter] 73 Respiratory Rate 18 16 18 Blood Pressure [Right Arm] 115/73 Pulse Oximetry 97 Oxygen Delivery Method Room Air 08/16/24 01:00 08/16/24 03:40 08/16/24 07:45 Temperature 97.8 F 97.8 F 97.6 F Pulse Rate [Left Pulse Oximeter] Pulse Rate [Pulse Oximeter] 73 66 70 Respiratory Rate 18 18 18 Blood Pressure [Right Arm] 137/78 141/83 H 137/88 Pulse Oximetry 94 92 96 Oxygen Delivery Method Room Air Room Air Room Air 08/16/24 07:45 08/16/24 10:45 Temperature 98.3 F Pulse Rate [Left Pulse Oximeter] Pulse Rate [Pulse Oximeter] 70 69 Respiratory Rate 18 18 Blood Pressure [Right Arm] 137/97 H Pulse Oximetry 96 Oxygen Delivery Method Room Air Assessment and Plan Assessment and plan (1) Septic olecranon bursitis of left elbow: Problem details: - 08/14/24 Orthopedic surgery obtained needle aspirate of purulent fluid sent to microbiology lab for gram stain and culture - Orthopedic surgery, Dr. Tejinder Myers, following with hospitalist team - 08/14/24 Nasal MRSA screen obtained with results pending - 08/14/24 initiated vancomycin 2 g IV with pharmacy consultation for on-going infusions pending microbiology findings and clinical response. Probable washout of the bursa with Orthopedic surgery tomorrow, August 16 Status: Acute Plan Patient has septic olecranon bursitis. Erythema, swelling, and drainage have persisted despite previous attempts at aspiration and treatment with IV antibiotics. Recommendation at this time is for surgical intervention consisting of left olecranon irrigation, debridement, and bursectomy. Risks of surgery to include neurovascular injury, persistent infection, wound healing complications, chronic drainage, DVT, heart attack, stroke, and were discussed with patient all questions were answered and informed consent was obtained. Patient has been NPO overnight and is scheduled for surgery later this morning.
--- NOTE | 2024-08-16 11:43 | PM.ORPRC ---
Procedure Note Date of procedure: 08/16/24 Procedure: PREOPERATIVE DIAGNOSIS: 1. Septic left olecranon bursitis POSTOPERATIVE DIAGNOSIS: 1. Septic left olecranon bursitis PROCEDURE: 1. Open left olecranon irrigation, debridement, and bursectomy SURGEON: Harry Mathew MD. RADIATION THERAPY TECHNICIAN: Daniela Slade P.A.-C. - An geriatric assistant was critical for this case to aid in patient positioning, tissue retraction, limb manipulation/positioning, and closure. ANESTHESIA: General anesthetic SPECIMENS: Swabs of olecranon bursal fluid and olecranon bursal tissue were sent for g stain and anaerobic/aerobic cultures. TOURNIQUET: 13 minutes at 250 mmHg ESTIMATED BLOOD LOSS: 30 mL COMPLICATIONS: None evident INDICATIONS: The patient is a pleasant 49-year-old male who developed septic left olecranon bursitis. He was initially treated with aspirations and IV antibiotics, but warmth, erythema, swelling, drainage have persisted. Recommendation was subsequently made for surgical intervention consisting of left olecranon irrigation, debridement, and bursectomy to eradicate the infection.. FINDINGS: Large abscess in the olecranon bursa with a significant amount of purulent fluid. DESCRIPTION OF PROCEDURE: Following a thorough discussion of risks, benefits, and alternatives consent was obtained and the operative site was marked. The patient was brought to the operating room and placed supine on the operating table. Induction of anesthesia was undertaken. He is on IV vancomycin no additional preoperative antibiotics were provided. Tourniquet placed patient's left upper arm and left upper extremities prepped and draped in usual sterile fashion. Surgical time-out was performed confirming patient identity, surgical site, and surgical procedure. Left arm was elevated exsanguinated Esmarch and tourniquet inflated 250 mmHg. Longitudinal incision was made over the left olecranon bursa which measured approximately 6 cm in length. Upon incising the skin subcutaneous tissues, a large amount of purulent fluid was encountered. The fluid collection tracked medially and laterally approximately 4 cm in each direction. Swabs of the purulent fluid were sent for Gram stain, anaerobic/aerobic cultures. Infected appearing bursal tissue was also swabbed and sent for Gram stain, anaerobic/aerobic cultures. Olecranon bursectomy was performed using sharp dissection, removing the entirety of the infected, devitalized olecranon bursal tissue. A large curette was then used to debride the soft tissues. The wound was then irrigated with 3 L of normal saline. The tourniquet was released. Hemostasis was achieved with electrocautery. Skin incision was then closed with 3-0 nylon symptoms are often sutures and sterile dressing was applied. Patient was then woken from anesthesia and transferred to PACU in stable condition. PLAN: 1. Patient will be readmitted to the hospitalist service for continued medical management. 2. Continue IV antibiotics per hospitalist recommendations. 3. Ice and elevation for pain and swelling. 4. Oral pain medications as needed. 5. Continue compressive wrap around elbow. 6. Follow-up in Orthopedic Clinic in 10-14 days for wound check and suture removal.
[2024-08-16] MEDS: fentaNYL 100 MCG/2 ML inj 50 MCG IVP ×4 (12:06→12:29)
[2024-08-16] MEDS: MEPERIDINE 25 MG/ML INJ 12.5 MG IVP (12:15)
--- NOTE | 2024-08-16 12:25 | W.ANESCHARGE ---
Anesthesia Charges Start Date/Time Anesthesia Start Date: 08/16/24 Anesthesia Start Time: 10:34 Stop Date/Time Anesthesia Stop Date: 08/16/24 Anesthesia Stop Time: 12:05
[2024-08-16] MEDS: HYDROmorphone 0.5 mg/0.5 ml inj IVP ×3 (12:28→15:14)
--- NOTE | 2024-08-16 13:27 | SUR.OPER ---
SURGEON DECLINES OFFER TO SEND EXCISED TISSUE TO PATHOLOGY.
--- NOTE | 2024-08-16 14:17 | P.IMPN_ITS ---
Progress Note: A&P Assessment and plan (1) Septic olecranon bursitis of left elbow: Problem details: - 08/14/24 Orthopedic surgery obtained needle aspirate of purulent fluid sent to microbiology lab for gram stain and culture - Orthopedic surgery, Dr. Tejinder Myers, following with hospitalist team - 08/14/24 vancomycin treatment for MRSA 08/16/2024: Dr. Blanco performed irrigation of olecranon bursa and bursectomy. Status: Acute (2) Cellulitis: Problem details: - as noted in Septic olecranon bursitis of left elbow entry. Clinically improving Status: Acute (3) Immunocompromised: Problem details: On chemotherapy and dexamethasone taper. Anticipate slow healing of wounds Status: Acute (4) Glioblastoma of parietal lobe: Problem details: - Dx 03/2024, Resected 04/18/2024 - Plan to complete 6 adjuvant chemotherapy cycles with TMZ most recent treatment was last week. Patient address future therapy with oncology team pending healing from current septic olecranon bursitis Status: Acute (5) Obesity (BMI 30-39.9): Status: Acute Plan Continue in hospital for another day of IV antibiotics. Possible transition to oral antibiotics for treatment of MRSA depending on clinical course. Time Spent With Patient Total time spent: Total time spent today is 45 minutes in evaluation management and discussion with patient other providers of plan of care Subjective Date Seen: 08/16/24 Interval history: Interval history: Eleuterio Tafoya is a 49 year old man with known right temporal glioblastoma status post right craniotomy surgical resection on 04/18/2024 with postsurgical MRI demonstrating gross total surgical resection, and hospital course complicated by septic shock due to Morganella morganii bacteremia likely related to right above the knee stump infection. Since then he has had chemo radiation therapy, most recently received TMZ 6 days ago. Additional pertinent past medical history remarkable for alcohol use disorder with patient drinking 3 cans of beer daily. Presented to the clinic today with complaint of left arm swelling which started 3 days prior to today. Initially had swelling only in later developed redness and discomfort to palpation as well. Acknowledges intermittent chills and feeling feverish but not documenting any fevers. In the emergency department today they were able to discern that he has left olecranon bursitis. Orthopedic surgery was able to perform a needle aspirate of the olecranon bursa drying out 5 mL of purulent aspirate. It is recommended that patient be admitted to observation overnight and initiate IV vancomycin pending Gram staining, culture results, and MRSA nasal swab screening. 08/15/2024: Patient reports feeling better since admission. He thinks his elbow was looking a little bit better as well. He has not had a fever. No other immediate health concerns. As noted above he has long-term health concerns related to his right AKA and ongoing chemotherapy for glioblastoma. 08/16/2024: Continue to have some pain in his left elbow bursa. No fever. Otherwise feels well. Exam Narrative: Exam Narrative: He is alert appears in no distress. Breathing is unlabored. Left arm is examined. Still has moderate edema of the left forearm and elbow. The erythema around the elbow is much better. Olecranon bursa is tense with fluid, perhaps a little worse than yesterday. Pressure on the olecranon bursa causes bloody pus to drain through the previous puncture site. Right lower extremity has chronic AKA ulcer about 1 x 3 cm without surrounding erythema. Const: Vital Signs, click to edit/add: Vital Signs - 24 hr 08/15/24 15:00 08/15/24 19:00 08/16/24 01:00 Temperature 98.5 F Pulse Rate Pulse Rate [Left P ulse Oximeter] 73 60 Pulse Rate [Pulse Oximeter] 73 Respiratory Rate 18 16 18 Blood Pressure Blood Pressure [Ri ght Arm] 115/73 Pulse Oximetry 97 [facility] 08/16/24 01:00 08/16/24 03:40 08/16/24 07:45 Temperature 97.8 F 97.8 F 97.6 F Pulse Rate Pulse Rate [Left P ulse Oximeter] Pulse Rate [Pulse Oximeter] 73 66 70 Respiratory Rate 18 18 18 Blood Pressure Blood Pressure [Ri ght Arm] 137/78 141/83 H 137/88 Pulse Oximetry 94 92 96 Oxygen Delivery Ut thod Room Air Room Air Room Air 08/16/24 07:45 08/16/24 10:45 08/16/24 12:00 Temperature 98.3 F 97.2 F L Pulse Rate 68 Pulse Rate [Left P ulse Oximeter] Pulse Rate [Pulse Oximeter] 70 69 Respiratory Rate 18 18 20 Blood Pressure 130/94 H Blood Pressure [Ri ght Arm] 137/97 H Pulse Oximetry 96 97 Oxygen Delivery Me thod Room Air Room Air 08/16/24 12:05 08/16/24 12:10 08/16/24 12:15 Temperature 97.4 F L Pulse Rate 69 71 70 Pulse Rate [Left P ulse Oximeter] Pulse Rate [Pulse Oximeter] Respiratory Rate 22 18 20 Blood Pressure 132/79 139/81 137/95 H Blood Pressure [Ri ght Arm] Pulse Oximetry 96 97 95 Oxygen Delivery Me thod Room Air Room Air 08/16/24 12:20 08/16/24 12:25 08/16/24 12:30 Temperature 97.4 F L Pulse Rate 70 72 68 Pulse Rate [Left P ulse Oximeter] Pulse Rate [Pulse Oximeter] Respiratory Rate 18 18 18 Blood Pressure 129/75 136/103 H 145/89 H Blood Pressure [Ri ght Arm] Pulse Oximetry 95 97 96 Oxygen Delivery Me thod Room Air Room Air Room Air 08/16/24 12:35 08/16/24 12:40 08/16/24 12:45 Temperature 97.6 F Pulse Rate 70 72 68 Pulse Rate [Left P ulse Oximeter] Pulse Rate [Pulse Oximeter] Respiratory Rate 20 18 18 Blood Pressure 133/84 128/89 126/88 Blood Pressure [Ri ght Arm] Pulse Oximetry 95 96 97 Oxygen Delivery Me thod Room Air Room Air Room Air 08/16/24 12:50 08/16/24 12:55 08/16/24 13:00 Temperature Pulse Rate 70 73 69 Pulse Rate [Left P ulse Oximeter] Pulse Rate [Pulse Oximeter] Respiratory Rate 18 16 16 Blood Pressure 127/83 132/86 132/81 Blood Pressure [Ri ght Arm] Pulse Oximetry 97 94 94 Oxygen Delivery Me thod Room Air Room Air Room Air 08/16/24 13:04 Temperature 97.4 F L Pulse Rate 73 Pulse Rate [Left P ulse Oximeter] Pulse Rate [Pulse Oximeter] Respiratory Rate 16 Blood Pressure 133/82 Blood Pressure [Ri ght Arm] Pulse Oximetry 96 Oxygen Delivery Me thod Room Air Documenting provider has reviewed patient's vital signs: yes
--- NOTE | 2024-08-16 19:35 | PC.NURSE ---
Pt is alert oriented and vitally stable. Pt had IND done on the left elbow, osmany wrapped, elevated, monitor for swelling, Daniela GALINDO notified.
[2024-08-16] MEDS: GABAPENTIN 300 MG CAPSULE 1200 MG PO (20:39)
[2024-08-17 02:33] VITALS: BP 126/88; PULSE 67; RESP 18; TEMP 36.7; O2SAT 97
[2024-08-17] MEDS: OXYCODONE 5 MG TABLET PO ×2 (02:34→06:04)
[2024-08-17] MEDS: IBUPROFEN 200 MG TABLET 600 MG PO (03:58)
[2024-08-17] MEDS: VANCOMYCIN 2 GM/400 ML 2 GM/400 ML PIGGYBACK IVPB (03:58)
[2024-08-17] MEDS: levETIRAcetam 500 MG TABLET PO (06:03)
[2024-08-17] MEDS: NALTREXONE HCL 50 MG TABLET PO (06:03)
[2024-08-17] MEDS: FLUOXETINE HCL 20 MG CAPSULE 40 MG PO (06:03)
--- NOTE | 2024-08-17 06:37 | PC.NURSE ---
End of shift [id number]: A&O pleasant and cooperative. VSS. Pain reported in head and left arm. See eMAR for interventions. KISHA wrap on left arm c/d/i. Elevated on pillows and intermittent ice to site. Lower arm +2 pitting edema. Up at dior in room. Using call light appropriately.
[2024-08-17 07:45] VITALS: PULSE 68; RESP 18
[2024-08-17 07:47] VITALS: BP 140/84; PULSE 68; RESP 18; TEMP 36.7; O2SAT 97
--- NOTE | 2024-08-17 07:56 | P.DS_ITS ---
DS: Providers Provider Date Seen: 08/17/24 Date of admission: 08/15/24 14:25 Primary care physician: Rodrigo Hughes MD Admitting Clinician: Jose Elias Lee MD Consults: OT, Orthopedic Surgery Attending Physician on discharge: Kristy Baxter MD Date of Discharge: 08/17/24 DS: Diagnosis Discharge Diagnosis (1) Septic olecranon bursitis of left elbow: Status: Acute Problem details: Day 1 s/p Open left olecranon irrigation, debridement, and bursectomy (2) Cellulitis: Status: Acute Problem details: - as noted in Septic olecranon bursitis of left elbow entry. Clinically improving (3) Immunocompromised: Status: Acute Problem details: - On chemotherapy and dexamethasone taper. Anticipate slow healing of wounds - (4) Glioblastoma of parietal lobe: Status: Acute Problem details: - Dx 03/2024, Resected 04/18/2024 - Plan to complete 6 adjuvant chemotherapy cycles with TMZ most recent treatment was last week. Patient address future therapy with oncology team pending healing from current septic olecranon bursitis (5) Tobacco use: Status: Acute Problem details: - daily chewing tobacco DS: Summary Hospital Course Hospital Course: Eleuterio is a 49-year-old male with a history of GBM, R AKA, and h/o MRSA, who presented to our hospital on 08/14 with left olecranon bursitis. This was aspirated multiple times with recurrent purulent fluid formation; taken to OR for open left olecranon irrigation, debridement, and bursectomy with Dr. Mathew on 08/16. Admission wound cultures + for MRSA; discharged on Bactrim with Orthopedic surgery f/u. Comorbidities above, remained stable. No changes to home medications. Status at Discharge Overall status at discharge: patient is progressing back to baseline Time Spent with Patient Time attestation: Total time spent providing and/or coordinating discharge services: Time spent: Less than 30 minutes Exam Narrative: Exam Narrative: GEN: Alert and oriented, sitting comfortably in bed and nontoxic HEENT: EOMIs bilaterally, no scleral icterus CV: Pulse palpates as regular rate and rhythm R: Breathing comfortably without wheezing or tachypnea Ext: R AKA Skin: Left upper extremity is wrapped with Mann; normal peripheral pulses, capillary refill, and movement of left fingers Psych: Appropriate Const: Vital Signs, click to edit/add: Vital Signs - 24 hr 08/16/24 10:45 08/16/24 12:00 08/16/24 12:05 Temperature 98.3 F 97.2 F L Pulse Rate 68 69 Pulse Rate [Pulse Oximeter] 69 Respiratory Rate 18 20 22 Blood Pressure 130/94 H 132/79 Blood Pressure [Ri ght Arm] 137/97 H Pulse Oximetry 96 97 96 Oxygen Delivery Me thod Room Air Room Air Room Air 08/16/24 12:10 08/16/24 12:15 08/16/24 12:20 Temperature 97.4 F L Pulse Rate 71 70 70 Pulse Rate [Pulse Oximeter] Respiratory Rate 18 20 18 Blood Pressure 139/81 137/95 H 129/75 Blood Pressure [Ri ght Arm] Pulse Oximetry 97 95 95 Oxygen Delivery Me thod Room Air Room Air 08/16/24 12:25 08/16/24 12:30 08/16/24 12:35 Temperature 97.4 F L Pulse Rate 72 68 70 Pulse Rate [Pulse Oximeter] Respiratory Rate 18 18 20 Blood Pressure 136/103 H 145/89 H 133/84 Blood Pressure [Ri ght Arm] Pulse Oximetry 97 96 95 Oxygen Delivery Me thod Room Air Room Air Room Air 08/16/24 12:40 08/16/24 12:45 08/16/24 12:50 Temperature 97.6 F Pulse Rate 72 68 70 Pulse Rate [Pulse Oximeter] Respiratory Rate 18 18 18 Blood Pressure 128/89 126/88 127/83 Blood Pressure [Ri ght Arm] Pulse Oximetry 96 97 97 Oxygen Delivery Me thod Room Air Room Air Room Air 08/16/24 12:55 08/16/24 13:00 08/16/24 13:04 Temperature 97.4 F L Pulse Rate 73 69 73 Pulse Rate [Pulse Oximeter] Respiratory Rate 16 16 16 Blood Pressure 132/86 132/81 133/82 Blood Pressure [Ri ght Arm] Pulse Oximetry 94 94 96 Oxygen Delivery Me thod Room Air Room Air Room Air 08/16/24 13:10 08/16/24 13:10 08/16/24 13:30 Temperature 98.3 F 98.3 F 98.3 F Pulse Rate 78 78 81 Pulse Rate [Pulse Oximeter] Respiratory Rate 18 20 20 Blood Pressure 127/74 127/74 126/76 Blood Pressure [Ri ght Arm] Pulse Oximetry 95 95 94 Oxygen Delivery Me thod Room Air Room Air Room Air 08/16/24 13:45 08/16/24 15:00 08/16/24 15:15 Temperature 98.8 F 98.8 F Pulse Rate 71 Pulse Rate [Pulse Oximeter] 81 81 Respiratory Rate 20 20 20 Blood Pressure 135/90 H Blood Pressure [Ri ght Arm] 135/90 H Pulse Oximetry 93 93 Oxygen Delivery Me thod Room Air Room Air 08/16/24 15:30 08/16/24 16:00 08/16/24 19:49 Temperature 98.8 F 98.8 F 98.2 F Pulse Rate 72 72 Pulse Rate [Pulse Oximeter] 73 Respiratory Rate 20 20 16 Blood Pressure 134/88 142/84 H Blood Pressure [Ri ght Arm] 132/81 Pulse Oximetry 93 93 95 Oxygen Delivery Me thod Room Air Room Air 08/16/24 22:50 08/17/24 02:33 08/17/24 07:47 Temperature 98.3 F 98.0 F 98.0 F Pulse Rate Pulse Rate [Pulse Oximeter] 70 67 68 Respiratory Rate 16 18 18 Blood Pressure Blood Pressure [Ri ght Arm] 135/86 126/88 140/84 H Pulse Oximetry 94 97 97 Oxygen Delivery Me thod Room Air Room Air DS: Data Data Completed and Pending Labs on day of discharge: Preliminary micro results at discharge 08/16/24 13:53 Aerobic Culture - Preliminary Elbow Left Culture in Progress Anaerobic Culture - Preliminary Culture in Progress 08/16/24 11:09 Aerobic Culture - Preliminary Elbow Left Culture in Progress Anaerobic Culture - Preliminary Culture in Progress 08/14/24 13:03 Blood Culture - Preliminary Blood NO GROWTH AFTER 48 HOURS Discharge Plan Discharge Disposition: Home, Self-Care Date of Admission: 08/15/24 14:25 Attending Provider on Discharge: Kristy Baxter Consulting Providers: Tejinder Myers Primary Care Provider: Rodrigo Hughes Condition: Improved Anticipated Discharge Date/Time: 08/17/24 07:52 Discharge Medications: New oxycodone 5 mg Tablet 5 mg PO Q4H PRNQty: 20 0RF sulfamethoxazole-trimethoprim [Bactrim DS] 800-160 mg tablet 1 tab PO Q12H 7 Days Qty: 14 0RF Continued ibuprofen [Advil] 200 mg tablet 400 mg PO .4-6X/DAY PRN losartan 100 mg tablet 100 mg PO QDAY Qty: 90 3RF dexamethasone 2 mg tablet 1 mg PO DAILY famotidine 20 mg tablet 20 mg PO DAILY aluminum chloride 20 % solution 1 applic topical QHS levetiracetam 500 mg tablet 500 mg PO BID loratadine-pseudoephedrine [Claritin-D 24 Hour] 10-240 mg tablet extended release 24 hr 1 tab PO DAILY PRN topiramate 25 mg tablet 25 - 50 mg PO BID Rx Instructions: TAKE 1 TAB TWICE A DAY FOR 7 DAYS, THEN INCREASE TO 2 TABS TWICE A DAY sildenafil (pulm.hypertension) 20 mg tablet 20 mg PO DAILY Rx Instructions: TAKES 1 TAB DAILY TO HELP URINATE AND OCCASIONALLY MORE THROUGHOUT THE DAY temozolomide 100 mg capsule 200 mg PO . DIREC Rx Instructions: must be taken on empty - 340 MG TOTAL - DAILY FOR 5 DAYS, THEN 23 DAYS OFF AND REPEAT temozolomide 140 mg capsule 140 mg PO DIRECTED Rx Instructions: must be taken on empty stomach - 340 MG TOTAL - 5 DAYS ON, 23 DAYS OFF AND REPEAT clotrimazole-betamethasone 1-0.05 % cream 1 applic topical BID PRN gabapentin 300 mg capsule 900 - 1,200 mg PO TID Qty: 900 1RF Rx Instructions: 900mg (3 capsules) morning and midday. 1200mg (4 capsules) HS fluoxetine 40 mg capsule 40 mg PO QDAY Qty: 90 1RF naltrexone 50 mg tablet 50 mg PO QDAY Qty: 90 3RF Discontinued oxycodone 5 mg tablet 5 mg PO Q6H PRN (Reason: headache) Qty: 60 0RF Discharge Orders: Discharge Order (Routine); Ordered 08/17/24 Ordered By: Kristy Baxter Additional Instructions: Antibiotics and pain meds at [facility], take as directed. No changes to home medications. Activity Level: Activity as Tolerated Activity Detail: - Use of left upper extremity as tolerates. Avoid deep flexion. - Nylon sutures present within this surgical wound. These will remain in place x 10-14 days. ? - Prescribed analgesics as needed. Patient is content with current narcotic medications. Minimize narcotic pain medication use; wean off and discontinue as soon as possible. Also recommend frequent icing, Ibuprofen and Tylenol PRN and elevation above the heart. - Continue compressive wrap around elbow (mann). - Follow-up in Orthopedic Clinic in 10-14 days for wound check and suture removal. Discharge Diet: Regular Follow Up Appointments: Daniela Slade PA-C [Physician Testing And Regulating Technician] - (10-14 days for wound check and suture removal) Rodrigo Hughes MD [Primary Care Provider] - (patient will call PCP to make appt as needed in the future) Forms: [email or web address] Info Instructions
--- NOTE | 2024-08-17 07:58 | P.ORPN_ITS ---
Subjective Subjective Time Seen by Provider: 07:00 Date Seen: 08/17/24 Principal diagnosis: Day 1 s/p Open left olecranon irrigation, debridement, and bursectomy Interval history: Eleuterio is doing well and resting comfortably in bed. He ranks his pain 3 out of 10. Denies postop chest pain, SOB, fever, chills, numbness/tingling distally, nausea and vomiting. Patient has strong desire to go home today. Patient also tells me he found a new home for his puppy that causes these various wounds on all his extremities. Ortho Exam Narrative Exam Narrative: Left elbow exam: Dressing left intact during this visit. Left hand/forearm erythema, warmth, tenderness improved in comparison to yesterday. Left hand edema has improved. CMS intact with 2+ radial pulse. [place], warm digits with brisk capillary refill. Grtip strength 5/5. Sensation and motor function intact along the median, radial and ulnar nerve distributions. Const Vital Signs, click to edit/add: Vital Signs - 24 hr 08/16/24 10:45 08/16/24 12:00 08/16/24 12:05 Temperature 98.3 F 97.2 F L Pulse Rate 68 69 Pulse Rate [Pulse Oximeter] 69 Respiratory Rate 18 20 22 Blood Pressure 130/94 H 132/79 Blood Pressure [Right Arm] 137/97 H Pulse Oximetry 96 97 96 Oxygen Delivery Method Room Air Room Air Room Air 08/16/24 12:10 08/16/24 12:15 08/16/24 12:20 Temperature 97.4 F L Pulse Rate 71 70 70 Pulse Rate [Pulse Oximeter] Respiratory Rate 18 20 18 Blood Pressure 139/81 137/95 H 129/75 Blood Pressure [Right Arm] Pulse Oximetry 97 95 95 Oxygen Delivery Method Room Air Room Air 08/16/24 12:25 08/16/24 12:30 08/16/24 12:35 Temperature 97.4 F L Pulse Rate 72 68 70 Pulse Rate [Pulse Oximeter] Respiratory Rate 18 18 20 Blood Pressure 136/103 H 145/89 H 133/84 Blood Pressure [Right Arm] Pulse Oximetry 97 96 95 Oxygen Delivery Method Room Air Room Air Room Air 08/16/24 12:40 08/16/24 12:45 08/16/24 12:50 Temperature 97.6 F Pulse Rate 72 68 70 Pulse Rate [Pulse Oximeter] Respiratory Rate 18 18 18 Blood Pressure 128/89 126/88 127/83 Blood Pressure [Right Arm] Pulse Oximetry 96 97 97 Oxygen Delivery Method Room Air Room Air Room Air 08/16/24 12:55 08/16/24 13:00 08/16/24 13:04 Temperature 97.4 F L Pulse Rate 73 69 73 Pulse Rate [Pulse Oximeter] Respiratory Rate 16 16 16 Blood Pressure 132/86 132/81 133/82 Blood Pressure [Right Arm] Pulse Oximetry 94 94 96 Oxygen Delivery Method Room Air Room Air Room Air 08/16/24 13:10 08/16/24 13:10 08/16/24 13:30 Temperature 98.3 F 98.3 F 98.3 F Pulse Rate 78 78 81 Pulse Rate [Pulse Oximeter] Respiratory Rate 18 20 20 Blood Pressure 127/74 127/74 126/76 Blood Pressure [Right Arm] Pulse Oximetry 95 95 94 Oxygen Delivery Method Room Air Room Air Room Air 08/16/24 13:45 08/16/24 15:00 08/16/24 15:15 Temperature 98.8 F 98.8 F Pulse Rate 71 Pulse Rate [Pulse Oximeter] 81 81 Respiratory Rate 20 20 20 Blood Pressure 135/90 H Blood Pressure [Right Arm] 135/90 H Pulse Oximetry 93 93 Oxygen Delivery Method Room Air Room Air 08/16/24 15:30 08/16/24 16:00 08/16/24 19:49 Temperature 98.8 F 98.8 F 98.2 F Pulse Rate 72 72 Pulse Rate [Pulse Oximeter] 73 Respiratory Rate 20 20 16 Blood Pressure 134/88 142/84 H Blood Pressure [Right Arm] 132/81 Pulse Oximetry 93 93 95 Oxygen Delivery Method Room Air Room Air 08/16/24 22:50 08/17/24 02:33 08/17/24 07:47 Temperature 98.3 F 98.0 F 98.0 F Pulse Rate Pulse Rate [Pulse Oximeter] 70 67 68 Respiratory Rate 16 18 18 Blood Pressure Blood Pressure [Right Arm] 135/86 126/88 140/84 H Pulse Oximetry 94 97 97 Oxygen Delivery Method Room Air Room Air Assessment and Plan Assessment and plan (1) Septic olecranon bursitis of left elbow: Problem details: Day 1 s/p Open left olecranon irrigation, debridement, and bursectomy Status: Acute Assessment and Plan: - Use of left upper extremity as tolerates. Avoid deep flexion. - Nylon sutures present within this surgical wound. These will remain in place x 10-14 days. ? - Prescribed analgesics as needed. Patient is content with current narcotic medications. Minimize narcotic pain medication use; wean off and discontinue as soon as possible. Also recommend frequent icing, Ibuprofen and Tylenol PRN and elevation above the heart. - Continue compressive wrap around elbow (osmany). - Follow-up in Orthopedic Clinic in 10-14 days for wound check and suture removal.
[2024-08-17] MEDS: LOSARTAN POTASSIUM 50 MG TABLET 100 MG PO (08:43)
[2024-08-17] MEDS: dexAMETHasone 2 MG TABLET 1 MG PO (08:43)
[2024-08-17] MEDS: FAMOTIDINE 20 MG TABLET PO (08:43)
[2024-08-17] MEDS: SILDENAFIL CITRATE 20 MG TABLET PO (08:43)
[2024-08-17] MEDS: GABAPENTIN 300 MG CAPSULE 900 MG PO (08:43)
--- NOTE | 2024-08-17 10:43 | PC.NURSE ---
Discharged: Pt alert oriented and vitally stable. Left arm elevated, +2 pitting edema noted, Daniela GALINDO aware. Dressing (osmany wrap) clean dry and intact. Pain managed, see MAR. Discharge information given to patient, discharged home with parents.
== END 2024-08-17 10:30 | disposition home or self-care (01) | DRG 501 ==
LOC: ED 16:07 → MEDSURG 16:24
PROVIDERS: Internal Medicine; Orthopaedic Surgery; Admitting Provider Family Medicine; Emergency Provider Emergency Medicine; PCP Family Medicine; Visit Provider Family Medicine
PROC: 0MB40ZZ Excision of Left Elbow Bursa and Ligament, Open Approach (ICD-10-PCS; CPT 24105; principal; 2024-08-16 10:00)
DX: M70.22 Olecranon bursitis, left elbow (principal); C71.3 Malignant neoplasm of parietal lobe; L03.114 Cellulitis of left upper limb; Z16.24 Resistance to multiple antibiotics; Z16.12 Extended spectrum beta lactamase (ESBL) resistance; D84.821 Immunodeficiency due to drugs; B95.62 Methicillin resistant Staphylococcus aureus infection as the cause of diseases classified elsewhere; Z79.69 Long term (current) use of other immunomodulators and immunosuppressants; Z79.52 Long term (current) use of systemic steroids; Z89.611 Acquired absence of right leg above knee; F10.10 Alcohol abuse, uncomplicated; Z80.0 Family history of malignant neoplasm of digestive organs; F32.A Depression, unspecified; F41.9 Anxiety disorder, unspecified; G62.9 Polyneuropathy, unspecified; I11.0 Hypertensive heart disease with heart failure; E66.9 Obesity, unspecified; R26.89 Other abnormalities of gait and mobility; K76.0 Fatty (change of) liver, not elsewhere classified; Z68.39 Body mass index [BMI] 39.0-39.9, adult; F17.220 Nicotine dependence, chewing tobacco, uncomplicated
CPT/HCPCS: 00400; 01710; 36415; 80048; 80053; 83605; 85025; 85610; 85730; 86140; 87040; 87070; 87075; 87081; 87186; 87205; 93971; 94761; 97110; 97165; 99284; 99285; A9270; G0378; J0330; J1100; J1170; J2175; J2270; J2405; J2704; J3010; J3370; J3372; J3475; J3490; J7030; J7050; J7120

== ENCOUNTER 2024-08-20 10:41 | Emergency (ER) | payer OTHER, SELFPAY ==
[2024-08-20 11:22] VITALS: BP 111/70; PULSE 87; RESP 18; TEMP 36.3; O2SAT 94; BMI 36.9
--- OUTSIDE RECORDS SUMMARY | 2024-08-20 11:45 | XMS_ITS | Continuity of Care Document ---
Author Organization [facility], [facility] Address [address] [place] [address] [address] [place] [address] Assessment No assessment recorded. Plan of Treatment Reminders Order Date Submit Date Provider Last Modified By Organization Details Last Modified Time Details Appointments ESTABLISH ED 10 2023 09:30A M Not available Not available Not available Lab None recorded. Referral None recorded. Procedures bladder scan (PROC) 2023 024 [email or web address] [facility], [address] [place] [address], [address], [place], [address], 07/30/2024 14:14:58 Surgeries None recorded. Imaging None recorded. Medication Orders solifenac in 10 mg tablet 2023 024 [id number], [address] [facility] [place] [place], [phone], 07/30/2024 14:26:01 Patient TargetsNo targets recorded. Patient Instructions Encounter Date Encounter Id Patient Instructions Last Modified By Organization Details Last Modified Time 07/30/2024 [id number] will try solifenacin and rtc 6 weeks. [email or web address] Not available 07/30/2024 14:26:59 Reason for Referral None Reported. Results Created Date Observation Date Name Description Value Unit Range Abnormal Flag Note LastModifiedBy Organization Detail LastModifiedTime 07/30/2007/30/2024 bladd er scan (PROC ) Volume (in mL) 16 ml Not Available [address], [place], [address], 07/22/2024 14:00:28 Result Notes None recorded. Problems Name Problem SNOMED Code Status Onset Date Resolution Date Notes Provider Name and Address Organization Details Recorded Time Urgent desire to urinate 51844620 Active 2023 Derrick Hodge MD [address] [place] [address],[address], [phone], [facility] 14:25:07 Incontinence 76686232 Active 2023 Derrick Hodge MD [address] [place] [address],[address], [place], [address], [facility] 14:25:08 Problem Notes None recorded. Procedures Surgical History Date Name Laterality Status Provider Name and Address Organization Details Recorded Time Bladder Scan completed Derrick Hodge MD [address] [place] [address],[address], [address], [facility] 07/30/2024 14:14:27 destruction of brain tumor completed Derrick Hodge MD [address] [place] [address],[address], [place], [address], [facility] [place] [facility] 07/30/2024 14:11:23 Imaging Results None [...] Not Available Not Available No t Available sulfamethox azole 800 mg-trimetho prim 160 mg tablet TAKE 1 TABLET BY MOUTH EVERY 12 HOURS FOR 7 DAYS active Not Available Not [...] tablet TAKE 1 TABLET BY MOUTH EVERY 4 HOURS NEEDED FOR PAIN active Not Available Not Available No t Available solifenacin 10 mg tablet TAKE 1 [...] Updated DateTime 07/30/2024 180.34 cm 32.8 kg/m2 435316.21 g Derrick Hodge MD [address] [place] [address],[address], [phone] [place] [address] Urology 07/30/2024 14:07:09 Social History Question Answer Notes LastModified by Organizat ion Details LastModified Time Tobacco Smoking Status Never Smoker Derrick Hodge MD [address] [place] [address], [phone] [place] [address] Urology 07/30/2024 14:10:43 What Is Your Level Of Alcohol Consumption? Occasional [email or web address] Information not available 07/30/2024 What Is Your Level Of Caffeine Consumption? Occasional [email or web address] Information not available 07/30/2024 What Was The Date Of Your Most Recent Tobacco Screening? 07/30/2024 [email or web address] Information not available 07/30/2024 Have You Ever Been Counseled For Unhealthy Alcohol Use? No [email or web address] Information not available 07/30/2024 Do You Use Any Illicit Or Recreational Drugs? No [email or web address] Information not available 07/30/2024 Sex: Unknown Functional Status None recorded. Mental Status None recorded. Family History Relationship Description Onset Age of this Age Resolved Age Notes LastModified by Organization Details LastModified Time Father Hernia repair [email or web address] Not available 07/30 14:10:16 Medical History Condition Response Sexually Transmitted Infection N Diabetes N Other N Bleeding Disorder N High Blood Pressure Y Kidney Stones N High Cholesterol N GERD/Acid Reflux N Heart Disease N Cancer Y Depression Y Lung Disease N Past Encounters Encounter ID Performer Location Encounter Start Date Encounter Closed Date Diagnosis/Indication Diagnosis SNOMED-CT Code Diagnosis ICD10 Code [id number] Derrick Hodge MD [facility] [address] [facility] [place] [address] 07/30/2024 14:01:11 07/31/2024 10:57:56 Incontinence 75144988 R32 Urgent barbra maeve to urinate 25129666 R39.15 Health Concerns Section Related Observation LastModified [...] shows 16ml today. Derrick Hodge MD [address] [facility],[address], [place], [address], [facility] 07/30/2024 14:27:20
--- OUTSIDE RECORDS SUMMARY | 2024-08-20 11:45 | XMS_ITS | Data Portability ---
Author Organization [facility] - (IP) Address [address] [place] [address] Care Team Providers Care Patch Press Operator Name Role Phone PANCHO VALENTE Primary Care [...] solid enhancing components. He was evaluated at [place] ED and at that time, only complaints [...] or concerns arise, they will reach out. [email or web address] Not available 04/17/2024 09:33:25 05/03/2024 05/03/2024 Eleuterio Tafoya is a 49-year-old male, who presents to the [facility] ED with headaches and confusion. Workup revealed [...] for which he is being treated at [facility] [place]. His bisi were removed easily without issue [...] move forward with his care with the [facility]. He is scheduled to [...] Organization Details Recorded Time Lesion of brain 130709153 Active 2023 ELIZABETH Aguirre - [facility] 4 09:33:35 Headache 18699951 Active 2023 ELIZABETH Aguirre - [facility] 4 09:34:08 Cerebral edema Active 2023 ELIZABETH Aguirre - [facility] 4 09:34:20 Glioblastoma multiforme of brain 419937775 Active 2023 ELIZABETH Aguirre - [facility] 09:49:44 Problem Notes [...] Diagnosis/Indication Diagnosis SNOMED-CT Code Diagnosis ICD10 Code [id number] Lorene Bhaktavan [place] [facility] [id number] [place] [phone] 04/16/2024 12:31:39 04/16/2024 12:47:31 [id number] Lorene Posye [place] [facility] [id number] [place] [address] 05/03/2024 13:35:49 05/03/2024 13:45:34 [id number] Lorene Bhaktavan [place] [facility] [id number] [place] [address] 05/17/2024 13:30:08 05/17/2024 13:34:35 Health Concerns Section Related Observation LastModified by Organization Detai ls LastModified Time None Recorded Concern Status LastModified by Organization Details LastModified Time None Recorded Advance Directives Directive None Recorded Payers Encounter Date Sequence Insurance Name Policy Number Policy Acuna Covered Member ID Acuna Member ID Guarantor Name 04/16/2024 1 [facility] [id number] Eleuterio Garcia Strese [id number] Eleuterio Garcia Strese 05/03/2024 1 R [id number] Eleuterio Tafoya [id number] Eleuterio Tafoya 05/17/2024 1 [facility] [id number] Eleuterio Tafoya [id number] Eleuterio Tafoya Notes Date Note Type Note Provider Name and Address Organization Details Recorded Time 04/16/2024 text/html HPI Notes: Eleuterio Tafoya is a 49-year-old male, who presents to neurosurgery Clinic with his ex- and his parents for evaluation of brain lesion. He presented to [facility] on April 11, 2024 for evaluation of [...] of stomach cancer. He was discharged from [facility] with Keppra 500 mg twice a day [...] much leading to rebound headaches. Lorene paniagua [place] - [facility] 04/17/2024 09:37:35 05/03/2024 text/html HPI Notes: Jose Enrique Tafoya is a 49-year-old male, who presents to Neurosurgery Clinic for staple removal. Recall, he presented to [facility] on April 11, 2024 for evaluation of [...] WHO grade 4. He has been seeing [facility] and he starts treatment soon. He denies any headaches or dizziness, nausea, vomiting, vision changes. Denies any numbness, tingling, shooting pains or weakness in the bilateral upper and lower extremities. He states that his incision did bleed a few days ago and he was unsure if it was from a scratch. Lorene Posey [place], [place] - [facility] 05/06/2024 09:50:27 05/17/2024 text/html HPI Notes: I had the pleasure of seeing Eleuterio Tafoya today in clinic for a postop appointment and wound check. Eleuterio is a 49-year-old male who initially presented to [facility] on April 11, 2024, for evaluation of [...] symptoms, the patient did ultimately present to [facility] and underwent a right craniotomy for removal of the temporal mass on April 19, 2024, by Dr. Her. Final pathology was consistent with a glioblastoma. He has been seeing the [facility] [place] and is scheduled to begin treatment next [...] antiepileptic medication for seizure prevention. Lorene paniagua [place] - [facility]. 05/20/2024 09:46:25
--- OUTSIDE RECORDS SUMMARY | 2024-08-20 11:46 | XMS_ITS ---
Author Organization [facility] Address [address] [place] [address] Care Team Providers Care Registration Manager Name Role Phone Unavailable Unavailable Unavailable Surgery Details Not on file Complications Check Surgery Details section. Procedure Estimated Blood Loss Check Surgery Details section. Procedure Findings Check Surgery Details section. Procedure Specimens Taken Check Surgery Details section.
--- OUTSIDE RECORDS SUMMARY | 2024-08-20 11:46 | XMS_ITS | Encounter Summary ---
Author Organization [facility] Address [address] [place] [address] Care Team Providers Care Estimator Binding Name Role Phone Elsewhere, Pcp Primary Care Provider Unavailabl e Reason for Visit * Radiation Therapy (Routine) - Authorized Specialty Diagnoses / Procedures Referred By Misa dinero Referred To Contact Diagnoses Malignant Neoplasm Of Brain (HCC) Procedures Prior Auth Rad Tx AR IMRT COMPLEX AR GUIDANCE FOR LOC RAD TX AR IMRT RADIOTHERAPY PLAN Genesis Aguilar M.D. [address] [place] [phone] [facility] Referral ID Status Reason Start Date Expiration Date V isits Requested Visits Authorized [id number] Authorized 05/15/2024 11/26/2024 30 30 Encounter Details Date Type Department Care Team (Latest Contact Info) Description 06/28/2024 9:48 AM CDT - 06/28/2024 11:59 PM CDT Hospital Encounter Department of Radiation Oncology in [place], [place] [address] [place] [address] Genesis Aguilar M.D. [address] [place] [phone] Discharge Disposition: Home or Self Care Social [...] How often do you attend anabaptist or christian serv ices? Patient declined 07/26/2021 Do you [...] heating? Patient declined 07/26/2021 [facility] - Occupational Stress Questionnaire Answer Date Recorded [...] documented as of this encounter Care Teams Estimator Binding Relationship Specialty Start Date End Date Elsewhere, Pcp PCP - General Family Medicine 09/09/21 documented as of this encounter
--- OUTSIDE RECORDS SUMMARY | 2024-08-20 11:46 | XMS_ITS | Encounter Summary ---
Author Organization [facility] Address [address] [place] [address] Care Team Providers Care Environmental Lawyer Name Role Phone Elsewhere, Pcp Primary Care Provider Unavailabl e Encounter Details Date Type Department Care Team (Late st Contact Info) Description 06/27/2024 Documentation Department of Oncology in [place], [place] [address] [place] [address] Amy Ward, M.S.W., L.I.C.S.W. [address] [place] [address] Social History Tobacco Use Types Packs/Day Years [...] How often do you attend uatsdin or jain serv ices? Patient declined 07/26/2021 [...] medical care, and heating? Patient declined 07/26/2021 [facility] - [...] a call from patient's father, Chad at [phone] asking for more resources for patient in help paying his bills. [employer] previously assisted in getting patient giftcards from[employer] and [employer]. Chad states the patient has not paid [...] Also [facility] [...] documented as of this encounter Care Teams Environmental Lawyer Relationship Specialty Start Date End Date Elsewhere, Pcp PCP - General Family Medicine 09/09/21 documented as of this encounter
--- OUTSIDE RECORDS SUMMARY | 2024-08-20 11:46 | XMS_ITS | Encounter Summary ---
Author Organization [facility] Address [address] [place] [address] Care Team Providers Care Community Service Aide Name Role Phone Elsewhere, Pcp Primary Care Provider Unavailabl e Encounter Details Date Type Department Care Team (Late st Contact Info) Description 07/02/2024 Documentation Department of Radiation Oncology in [place], [place] [address] [place] [phone] Genesis Aguilar M.D. [address] [place] [phone] Social History Tobacco Use Types Packs/Day Years [...] declined 07/26/2021 How often do you attend evangelical or mosque serv ices? Patient declined 07/26/2021 Do you belong to any clubs o r organizations such as evangelical groups, unions, fraternal or athletic groups, or [...] medical care, and heating? Patient declined 07/26/2021 [facility]ational Stress Questionnaire Answer Date [...] (cGy) First Treatment Last Treatment Elapsed Days [id number] 200 6000 6000 05/20/2024 07/02/2024 43 Course [...] Jessica Arevalo R.N., 07/26/2024 4:06 PM CDT [facility] [address] [place] [address] documented in this encounter Plan of Treatment Not on file documented as of this encounter Visit Diagnoses Diagnosis Malignant Neoplasm Of Brain (HCC)- Primary documented in this encounter Additional Health Concerns Infection Onset Date Last Indicated Resolved Time Protective Environment 05/27/2024 05/27/202407/26 5:47 AM CDT documented as of this encounter Care Teams Community Service Aide Relationship Specialty Start Date End Date Elsewhere, Pcp PCP - General Family Medicine 09/09/21 documented as of this encounter
--- OUTSIDE RECORDS SUMMARY | 2024-08-20 11:46 | XMS_ITS ---
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 Past Plans Radiation Treatments * Plan Last Treated On Elapsed Days Fractions Treated Prescribed Fraction Dose Prescribed Total Dose [id number] 07/02/2024 43 30 of 30 200 cGy 6,000 cGy Reference Point Last Treated On Elapsed Days Session Dose Total Dose [id number] 07/02/2024 43 200 cGy 6,000 cGy
--- OUTSIDE RECORDS SUMMARY | 2024-08-20 11:46 | XMS_ITS | Encounter Summary ---
Author Organization [facility] Address [address] [place] [address] Care Team Providers Care Expeller Worker Name Role Phone Elsewhere, Pcp Primary Care Provider Unavailabl e Reason for Visit * Radiation Therapy (Routine) - Authorized Specialty Diagnoses / Procedures Referred By Misa dinero Referred To Contact Diagnoses Malignant Neoplasm Of Brain (HCC) Procedures Prior Auth Rad Tx AL IMRT COMPLEX AL GUIDANCE FOR LOC RAD TX AL IMRT RADIOTHERAPY PLAN Genesis Aguilar M.D. [address] [place] [phone] [facility] Referral ID Status Reason Start Date Expiration Date V isits Requested Visits Authorized [id number] Authorized 05/15/2024 11/26/2024 30 30 Encounter Details Date Type Department Care Team (Latest Contact Info) Description 06/27/2024 9:28 AM CDT - 06/27/2024 11:59 PM CDT Hospital Encounter Department of Radiation Oncology in [place], [place] [address] [place] [phone] Genesis Aguilar M.D. [address] [place] [phone] Discharge Disposition: Home or Self Care Social [...] How often do you attend temple or anabaptism serv ices? Patient declined 07/26/2021 Do you [...] medical care, and heating? Patient declined 07/26/2021 [facility] - Occupational Stress Questionnaire Answer [...] documented as of this encounter Care Teams Expeller Worker Relationship Specialty Start Date End Date Elsewhere, Pcp PCP - General Family Medicine 09/09/21 documented as of this encounter
--- OUTSIDE RECORDS SUMMARY | 2024-08-20 11:46 | XMS_ITS | Clinical Summary ---
Author Organization [facility] Address [address] [place] [address] Care Team Providers Care Warping Machine Operator Name Role Phone Elsewhere, Pcp Primary Care Provider Unavailabl e Source Comments Patient records contain information from all sites at [facility]. For routine questions regarding patient records, call [phone] during business hours, M-F 8:00 AM - 5:00 PM Central Time. Record requests for emergency care only can be directed to [phone] at any time.[facility] Allergies No known active allergies Medications Medication [...] NOT SWALLOW. 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 Discharge Disposition: Home or Self Care 07/02/2024 Documentation Department of Radiation Oncology in [address] [address] Genesis Aguilar M.D. 07/01/2024 9:43 AM CDT - 07/01/2024 11:59 PM CDT Hospital Encounter Department of Radiation Oncology in [address] [address] Genesis Aguilar M.D. Discharge Disposition: Home or Self Care 06/28/2024 9:48 AM CDT - 06/28/2024 11:59 PM CDT Hospital Encounter Department of Radiation Oncology in [address] [address] Genesis Aguilar M.D. Discharge Disposition: Home or Self Care 06/27/2024 9:28 AM CDT - 06/27/2024 11:59 PM CDT Hospital Encounter Department of Radiation Oncology in [address] [address] Genesis Aguilar M.D. Discharge Disposition: Home or Self Care 06/27/2024 Documentation Department of Oncology in [place], [place] [address] [place] [address] Amy Ward M.S.W., L.I.C.S.W. 06/26/2024 9:34 AM CDT - 06/26/2024 2:36 PM CDT Hospital Encounter Department of Radiation Oncology in [address] [address] Genesis Aguilar M.D. Malignant Neoplasm Of Brain (HCC) 06/26/2024 9:33 AM CDT Hospital Encounter Department of Radiation Oncology in [address] [address] Genesis Aguilar M.D. Discharge Disposition: Home or Self Care 06/25/2024 9:41 AM CDT - 06/25/2024 11:59 PM CDT Hospital Encounter Department of Radiation Oncology in [address] [address] Genesis Aguilar M.D. Discharge Disposition: Home or Self Care 06/24/2024 9:41 AM CDT - 06/24/2024 11:59 PM CDT Hospital Encounter Department of Radiation Oncology in [address] [address] Genesis Aguilar M.D. Discharge Disposition: Home or Self Care 06/21/2024 9:28 AM CDT - 06/21/2024 11:59 PM CDT Hospital Encounter Department of Radiation Oncology in [address] [address] Genesis Aguilar M.D. Discharge Disposition: Home or Self Care 06/20/2024 9:36 AM CDT - 06/20/2024 11:59 PM CDT Hospital Encounter Department of Radiation Oncology in [address] [address] Genesis Aguilar M.D. Discharge Disposition: Home or Self Care 06/19/2024 9:14 AM CDT - 06/19/2024 2:50 PM CDT Hospital Encounter Department of Radiation Oncology in [address] [address] Genesis Aguilar M.D. Malignant Neoplasm Of Brain (HCC) 06/19/2024 9:14 AM CDT - 06/19/2024 11:59 PM CDT Hospital Encounter Department of Radiation Oncology in [address] [address] Genesis Aguilar M.D. Discharge Disposition: Home or Self Care 06/18/2024 9:49 AM CDT - 06/18/2024 11:59 PM CDT Hospital Encounter Department of Radiation Oncology in [address] [address] Genesis Aguilar M.D. Discharge Disposition: Home or Self Care 06/17/2024 9:40 AM CDT - 06/17/2024 11:59 PM CDT Hospital Encounter Department of Radiation Oncology in [address] [address] Genesis Aguilar M.D. Discharge Disposition: Home or Self Care 06/14/2024 9:43 AM CDT - 06/14/2024 11:59 PM CDT Hospital Encounter Department of Radiation Oncology in [address] [address] Genesis Aguilar M.D. Discharge Disposition: Home or Self Care 06/13/2024 9:40 AM CDT - 06/13/2024 11:59 PM CDT Hospital Encounter Department of Radiation Oncology in [address] [address] Genesis Aguilar M.D. Discharge Disposition: Home or Self Care 06/12/2024 9:44 AM CDT - 06/12/2024 12:55 PM CDT Hospital Encounter Department of Radiation Oncology in [address] [address] Genesis Aguilar M.D. Malignant Neoplasm Of Brain (HCC) 06/12/2024 9:44 AM CDT - 06/12/2024 11:59 PM CDT Hospital Encounter Department of Radiation Oncology in [address] [address] Genesis Aguilar M.D. Discharge Disposition: Home or Self Care 06/11/2024 9:47 AM CDT - 06/11/2024 11:59 PM CDT Hospital Encounter Department of Radiation Oncology in [address] [address] Genesis Aguilar M.D. Discharge Disposition: Home or Self Care 06/11/2024 Clinical Communication Department of Oncology in [place] [address] [place] [address] Amy Ward, M.S.W., L.I.C.S.W. 06/10/2024 10:30 AM CDT - 06/10/2024 11:20 AM CDT Hospital Encounter Department of Radiation Oncology in [address] [address] Genesis Aguilar M.D. Grieman, Kari A, RJudyNJudy Malignant Neoplasm Of Brain (HCC) (Primary Dx) 06/07/2024 9:46 AM CDT - 06/07/2024 11:59 PM CDT Hospital Encounter Department of Radiation Oncology in [address] [address] Genesis Aguilar M.D. Discharge Disposition: Home or Self Care 06/06/2024 9:56 AM CDT - 06/06/2024 11:59 PM CDT Hospital Encounter Department of Radiation Oncology in [address] [address] Genesis Aguilar M.D. Discharge Disposition: Home or Self Care 06/05/2024 9:43 AM CDT - 06/05/2024 11:59 PM CDT Hospital Encounter Department of Radiation Oncology in [address] [address] Genesis Aguilar M.D. Discharge Disposition: Home or Self Care 06/04/2024 9:54 AM CDT - 06/04/2024 6:14 PM CDT Hospital Encounter Department of Radiation Oncology in [address] [address] Jeovanny Khalil M.D. Malignant Neoplasm Of Brain (HCC) 06/04/2024 9:53 AM CDT Hospital Encounter Department of Radiation Oncology in [address] [address] Genesis Aguilar M.D. Discharge Disposition: Home or Self Care 06/03/2024 10:00 AM CDT - 06/03/2024 11:59 PM CDT Hospital Encounter Department of Radiation Oncology in [address] [address] Genesis Aguilar M.D. Discharge Disposition: Home or Self Care 05/31/2024 10:13 AM CDT - 05/31/2024 11:59 PM CDT Hospital Encounter Department of Radiation Oncology in [address] [address] Genesis Aguilar M.D. Discharge Disposition: Home or Self Care 05/29/2024 9:58 AM CDT - 05/29/2024 11:26 AM CDT Hospital Encounter Department of Radiation Oncology in [address] [address] Genesis Aguilar M.D. Malignant Neoplasm Of Brain (HCC) 05/29/2024 9:58 AM CDT - 05/29/2024 11:59 PM CDT Hospital Encounter Department of Radiation Oncology in [address] [address] Genesis Aguilar M.D. Discharge Disposition: Home or Self Care 05/28/2024 9:33 AM CDT - 05/28/2024 11:59 PM CDT Hospital Encounter Department of Radiation Oncology in [address] [address] Genesis Aguilar M.D. Discharge Disposition: Home or Self Care 05/28/2024 8:50 AM CDT - 05/28/2024 9:32 AM CDT Hospital Encounter Department of Radiation Oncology in [address] [address] Mica Gonzalez M.D. Wacholz, Abigail M, M.S.W., L.I.C.S.W. Counseling Phase Of Life Problem (Primary Dx); Malignant Neoplasm Of Brain (HCC) Discharge Disposition: Home or Self Care 05/27/2024 9:45 AM CDT - 05/27/2024 11:59 PM CDT Hospital Encounter Department of Radiation Oncology in [address] [address] Genesis Aguilar M.D. Discharge Disposition: Home or Self Care 05/27/2024 9:30 AM CDT - 05/27/2024 9:44 AM CDT Hospital Encounter Department of Radiation Oncology in [address] [address] Genesis Aguilar M.D. Grieman, Kari A RJudyNJudy Malignant Neoplasm Of Brain (HCC) (Primary Dx) 05/24/2024 9:46 AM CDT - 05/24/2024 2:34 PM CDT Hospital Encounter Department of Radiation Oncology in [address] [address] Genesis Aguilar M.D. Grieman, Kari A R.NJudy Malignant Neoplasm Of Brain (HCC) Discharge Disposition: Home or Self Care 05/24/2024 9:46 AM CDT - 05/24/2024 11:59 PM CDT Hospital Encounter Department of Radiation Oncology in [address] [address] Genesis Aguilar M.D. Discharge Disposition: Home or Self Care 05/23/2024 11:04 AM CDT - 05/23/2024 2:35 PM CDT Hospital Encounter Department of Radiation Oncology in [address] [address] Genesis Aguilar M.D. Retterath, Chelsey A, R.N. Malignant Neoplasm Of Brain (HCC) (Primary Dx) 05/23/2024 9:51 AM CDT - 05/23/2024 11:03 AM CDT Hospital Encounter Department of Radiation Oncology in [address] [address] Genesis Aguilar M.D. Discharge Disposition: Home or Self Care 05/22/2024 9:53 AM CDT - 05/22/2024 11:59 PM CDT Hospital Encounter Department of Radiation Oncology in [address] [address] Genesis Aguilar M.D. Discharge Disposition: Home or Self Care 05/21/2024 2:35 PM CDT - 05/21/2024 4:59 PM CDT Hospital Encounter Department of Radiation Oncology in [address] [place] [address] Genesis Aguilar M.D. Malignant Neoplasm Of Brain (HCC) 05/21/2024 2:34 PM CDT Hospital Encounter Department of Radiation Oncology in [address] [address] Genesis Aguilar M.D. Discharge Disposition: Home or Self Care 05/20/2024 10:00 AM CDT - 05/20/2024 11:59 PM CDT Hospital Encounter Department of Radiation Oncology in [address] [address] Genesis Aguilar M.D. Discharge Disposition: Home or [...] declined 07/26/2021 How often do you attend oriental orthodox or congregational serv ices? Patient declined 07/26/2021 Do you belong to any clubs o r organizations such as oriental orthodox groups, unions, fraternal or athletic groups, or [...] medical care, and heating? Patient declined 07/26/2021 [facility] Answer Date [...] No 07/26/2021 Housing Stability Vital Sign Answer Maetus e Recorded In the last 12 months, [...] DT Respiratory Rate 18 10/08/2021 4:40 PM ADMINISTRATIVE PROFESSIONAL Oxygen Saturation 96% 10/08/2021 4:40 PM ADMINISTRATIVE PROFESSIONAL Inhaled Oxygen Concentration - - Weight 115 kg (254 lb 10.1 oz) 06/26/2024 10:32 AM CDT Height 177.8 cm (5' 10) 10/08/2021 3:55 PM ADMINISTRATIVE PROFESSIONAL Body Mass Index 36.54 10/08/2021 3:55 PM ADMINISTRATIVE PROFESSIONAL Plan of Treatment Health Maintenance Due Date [...] this topic Medical Devices Implanted Type Area Home Day Care Provider Device Identifier Shelf Expiration Date Model / Serial / Lot Clp [facility] - [id number] Implanted:Qty : 1 on 09/09/2021 by Sanford Mena M.D. at [facility] Hardware e.g. pins/screws/ rods Right: Leg Ethicon [id number] 05/26/2026 [id number] / / [id number] Clp Apr [facility] - [id number] Implanted:Qty : 1 on 09/09/2021 by Sanford Mena M.D. at [facility] Hardware e.g. pins/screws/ rods Right: Leg Ethicon [id number] 05/26/2026 MSM20 / / [id number] Explanted Type Area Home Day Care Provider Device Identifier Shelf Expiration Date Model / Serial / Lot Cmnt Bn Hi Visc Pmma 40 - [id number] Implanted:Qty: 1 on 11/15/2019 by Maude Shah M.D. at [facility] Explanted:Qty: 1 on 12/03/2019 by Sanford Mena M.D. at [facility] Bone Cement Right: Femur [place] [id number] 6191-1-00 / Description:7 antibiotic juaquin ent beads [...] TREATMENT INFORMATION Routine 05/20/2024 10:29 AM CDT CREATININE WITH EGFR, S/P Routine 12/18/2019 9:40 PM ADMINISTRATIVE PROFESSIONAL Infection Of Amputation Stump Right Lower Extremity (HCC) BASIC METABOLIC PANEL, S/P Routine 11/19/2019 7:46 AM ADMINISTRATIVE PROFESSIONAL from Last 3 Months or Most Recently Relevant to Health Maintenance Results * Aria Course Complete Treatment Information (07/02/2024 10:08 AM CDT) Course ID [id number] GARSIA ARIA Course Start Date 4 08:57 CDT GARSIA ARIA Course End Date 4 10:16 CDT GARSIA ARIA First Treatment Date 4 10:26 CDT GARSIA ARIA Last Treatment Date 4 10:08 CDT GARSIA ARIA Treatment Elapsed Days 43 GARSIA ARIA Reference Point [id number] GARSIA ARIA Dosage Given to Date cGy 6000 GARSIA ARIA Plan ID [id number] GARSIA ARIA Fractions Treated to Date 30 GARSIA ARIA Planned Total Fractions 30 GARSIA ARIA Prescribed Dose Per Fraction 200 GARSIA ARIA Prescription Dose in cGy 6000 GARSIA ARIA Plan Primary Reference Point [id number] GARSIA ARIA 07/02/2024 10:0 8 AM CDT [...] Elapsed Days 43 GARSIA ARIA Reference Point [id number] GARSIA ARIA Dosage Given to Date cGy 6000 GARSIA ARIA Session Dosage Given 200 GARSIA ARIA Plan ID [id number] GARSIA ARIA Fractions Treated to Date 30 GARSIA ARIA Planned Total Fractions 30 GARSIA ARIA Prescribed Dose Per Fraction 200 GARSAI ARIA Prescription Dose in cGy 6000 GARSIA ARIA Plan Primary Reference Point [id number] GARSIA ARIA 07/02/2024 10:0 8 AM CDT Provider Not In System RADIATION ONCOLOG Y ORDERABLES ADY POWERSA na from Last 3 Months Advance Directives For more information, please contact: [phone] * Full Code (Latest Code Status on [...] Answer Comments Full Code: Discussed Care Teams Warping Machine Operator Relationship Specialty Start Date End Date Elsewhere, Pcp PCP - General Family Medicine 09/09/21
--- OUTSIDE RECORDS SUMMARY | 2024-08-20 11:46 | XMS_ITS | Encounter Summary ---
Author Organization [facility] Address [address] [place] [address] Care Team Providers Care Epidemiology Internship Name Role Phone Elsewhere, Pcp Primary Care Provider Unavailabl e Reason for Referral * Radiation Therapy (Routine) - Authorized Specialty Diagnoses / Procedures Referred By Misa garcia Referred To Contact Diagnoses Malignant Neoplasm Of Brain (HCC) Procedures Management Visit Genesis Aguilar M.D. [address] [place] [address] [facility] Region Referral ID Status Reason Start Date Expiration Date V isits Requested Visits Authorized [id number] Authorized 05/03/2024 05/03/2025 10 10 Reason for Visit * Radiation Therapy (Routine) - Authorized Specialty Diagnoses / Procedures Referred By Misa garcia Referred To Contact Diagnoses Malignant Neoplasm Of Brain (HCC) Procedures Management Visit Genesis Aguilar M.D. [address] [place] [address] [facility] Region Referral ID Status Reason Start Date Expiration Date V isits Requested Visits Authorized [id number] Authorized 05/03/2024 05/03/2025 10 10 Encounter Details Date Type Department Care Team (Latest Contact Info) Description 06/26/2024 9:34 AM CDT - 06/26/2024 2:36 PM CDT Hospital Encounter Department of Radiation Oncology in [place], [place] [address] [place] [phone] Genesis Aguilar M.D. [address] [place] [address] Malignant Neoplasm Of Brain (HCC) Social History [...] declined 07/26/2021 How often do you attend jew or congregation serv ices? Patient declined 07/26/2021 Do you belong to any clubs o r organizations such as jew groups, unions, fraternal or athletic groups, or [...] medical care, and heating? Patient declined 07/26/2021 [facility] - [...] Body Mass Index 36.54 10/08/2021 3:55 PM BUSINESS INTERN documented in this encounter Medications at Time [...] (cGy) First Treatment Last Treatment Elapsed Days [id number] 200 5200 6000 05/20/2024 06/26/2024 37 Course Summary 05/20/2024 06/26/2024 37 The patient was seen and examined today with Dr. Aguilar. 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 Aguilar today. Signed by: Jessica Aervalo R.N. 06/26/2024 12:34 PM CDT documented in [...] documented as of this encounter Care Teams Epidemiology Internship Relationship Specialty Start Date End Date Elsewhere, Pcp PCP - General Family Medicine 09/09/21 documented as of this encounter
--- OUTSIDE RECORDS SUMMARY | 2024-08-20 11:46 | XMS_ITS | Encounter Summary ---
Author Organization [facility] Address [address] [place] [address] Care Team Providers Care Kitchen Utility Associate Name Role Phone Elsewhere, Pcp Primary Care Provider Unavailabl e Reason for Visit * Radiation Therapy (Routine) - Authorized Specialty Diagnoses / Procedures Referred By Misa dinero Referred To Contact Diagnoses Malignant Neoplasm Of Brain (HCC) Procedures Prior Auth Rad Tx CT IMRT COMPLEX CT GUIDANCE FOR LOC RAD TX CT IMRT RADIOTHERAPY PLAN Genesis Aguilar M.D. [address] [place] [address] [facility] Referral ID Status Reason Start Date Expiration Date V isits Requested Visits Authorized [id number] Authorized 05/15/2024 11/26/2024 30 30 Encounter Details Date Type Department Care Team (Latest Contact Info) Description 06/25/2024 9:41 AM CDT - 06/25/2024 11:59 PM CDT Hospital Encounter Department of Radiation Oncology in [place], [place] [address] [place] [phone] Genesis Aguilar M.D. [address] [place] [phone] Discharge Disposition: Home or Self Care Social [...] declined 07/26/2021 How often do you attend zoroastrian or pentecostalism serv ices? Patient declined 07/26/2021 Do you belong to any clubs o r organizations such as zoroastrian groups, unions, fraternal or athletic groups, or [...] heating? Patient declined 07/26/2021 [facility] - Occupational Stress Questionnaire Answer Date Recorded [...] at bedtime. 04/29/2024 miscellaneous medical supply [facility] CPAP machine for home use at pressure: [...] documented as of this encounter Care Teams Kitchen Utility Associate Relationship Specialty Start Date End Date Elsewhere, Pcp PCP - General Family Medicine 09/09/21 documented as of this encounter
--- OUTSIDE RECORDS SUMMARY | 2024-08-20 11:46 | XMS_ITS | Encounter Summary ---
Author Organization [facility] Address [address] [place] [address] Care Team Providers Care Dealer Compliance Representative Name Role Phone Elsewhere, Pcp Primary Care Provider Unavailabl e Reason for Visit * Radiation Therapy (Routine) - Authorized Specialty Diagnoses / Procedures Referred By Misa dinero Referred To Contact Diagnoses Malignant Neoplasm Of Brain (HCC) Procedures Prior Auth Rad Tx [place] IMRT COMPLEX [place] GUIDANCE FOR LOC RAD [place] IMRT RADIOTHERAPY PLAN Genesis Aguilar M.D. [address] [place] [address] [facility] Referral ID Status Reason Start Date Expiration Date V isits Requested Visits Authorized [id number] Authorized 05/15/2024 11/26/2024 30 30 Encounter Details Date Type Department Care Team (Latest Contact Info) Description 06/26/2024 9:33 AM CDT Hospital Encounter Department of Radiation Oncology in [place], [place] [address] [place] [address] Genesis Aguilar M.D. [address] [place] [phone] Discharge Disposition: Home or Self Care Social [...] How often do you attend rastafari or presybeterian serv ices? Patient declined 07/26/2021 Do you [...] medical care, and heating? Patient declined 07/26/2021 [facility] - Occupational [...] mouth at bedtime. 04/29/2024 miscellaneous medical supply [facility] CPAP machine for home use at pressure: [...] documented as of this encounter Care Teams Dealer Compliance Representative Relationship Specialty Start Date End Date Elsewhere, Pcp PCP - General Family Medicine 09/09/21 documented as of this encounter
--- OUTSIDE RECORDS SUMMARY | 2024-08-20 11:46 | XMS_ITS | Referral Summary ---
Author Organization [facility] Address [address] [place] [address] Care Team Providers Care Activities Volunteer Name Role Phone Elsewhere, Pcp Primary Care Provider Unavailabl e Source Comments Patient records contain information from all sites at [facility]. For routine questions regarding patient records, call [phone] during business hours, M-F 8:00 AM - 5:00 PM Central Time. Record requests for emergency care only can be directed to [phone] at any time.[facility] Encounters Date Type Department Care Team Description 07/02/2024 Documentation Department of Radiation Oncology in [address] [phone] Genesis Aguilar M.D. 07/02/2024 9:38 AM CDT - 07/02/2024 11:59 PM CDT Hospital Encounter Department of Radiation Oncology in [address] [address] Genesis Aguilar M.D. Discharge Disposition: Home or Self Care 07/01/2024 9:43 AM CDT - 07/01/2024 11:59 PM CDT Hospital Encounter Department of Radiation Oncology in [address] [address] Genesis Aguilar M.D. Discharge Disposition: Home or Self Care 06/28/2024 9:48 AM CDT - 06/28/2024 11:59 PM CDT Hospital Encounter Department of Radiation Oncology in [address] [address] Genesis Aguilar M.D. Discharge Disposition: Home or Self Care 06/27/2024 Documentation Department of Oncology in [place], [place] [address] [place] [address] Amy Ward M.STeo., L.I.C.S.W. 06/27/2024 9:28 AM CDT - 06/27/2024 11:59 PM CDT Hospital Encounter Department of Radiation Oncology in [address] [address] Genesis Aguilar M.D. Discharge Disposition: Home or Self Care 06/26/2024 9:34 AM CDT - 06/26/2024 2:36 PM CDT Hospital Encounter Department of Radiation Oncology in [address] [address] Genesis Aguilar M.D. Malignant Neoplasm Of Brain (HCC) 06/26/2024 9:33 AM CDT Hospital Encounter Department of Radiation Oncology in [address] [address] Genesis Aguilar M.D. Discharge Disposition: Home or Self Care 06/25/2024 9:41 AM CDT - 06/25/2024 11:59 PM CDT Hospital Encounter Department of Radiation Oncology in [address] [address] Genesis Aguilar M.D. Discharge Disposition: Home or Self Care 06/24/2024 9:41 AM CDT - 06/24/2024 11:59 PM CDT Hospital Encounter Department of Radiation Oncology in [address] [address] Genesis Aguilar M.D. Discharge Disposition: Home or Self Care 06/21/2024 9:28 AM CDT - 06/21/2024 11:59 PM CDT Hospital Encounter Department of Radiation Oncology in [address] [address] Genesis Aguilar M.D. Discharge Disposition: Home or Self Care 06/20/2024 9:36 AM CDT - 06/20/2024 11:59 PM CDT Hospital Encounter Department of Radiation Oncology in [address] [address] Genesis Aguilar M.D. Discharge Disposition: Home or Self Care 06/19/2024 9:14 AM CDT - 06/19/2024 2:50 PM CDT Hospital Encounter Department of Radiation Oncology in [address] [address] Genesis Aguilar M.D. Malignant Neoplasm Of Brain (HCC) 06/19/2024 9:14 AM CDT - 06/19/2024 11:59 PM CDT Hospital Encounter Department of Radiation Oncology in [address] [address] Genesis Aguilar M.D. Discharge Disposition: Home or Self Care 06/18/2024 9:49 AM CDT - 06/18/2024 11:59 PM CDT Hospital Encounter Department of Radiation Oncology in [address] [address] Genesis Aguilar M.D. Discharge Disposition: Home or Self Care 06/17/2024 9:40 AM CDT - 06/17/2024 11:59 PM CDT Hospital Encounter Department of Radiation Oncology in [address] [address] Genesis Aguilar M.D. Discharge Disposition: Home or Self Care 06/14/2024 9:43 AM CDT - 06/14/2024 11:59 PM CDT Hospital Encounter Department of Radiation Oncology in [address] [address] Genesis Aguilar M.D. Discharge Disposition: Home or Self Care 06/13/2024 9:40 AM CDT - 06/13/2024 11:59 PM CDT Hospital Encounter Department of Radiation Oncology in [address] [address] Genesis Aguilar M.D. Discharge Disposition: Home or Self Care 06/12/2024 9:44 AM CDT - 06/12/2024 12:55 PM CDT Hospital Encounter Department of Radiation Oncology in [address] [address] Genesis Aguilar M.D. Malignant Neoplasm Of Brain (HCC) 06/12/2024 9:44 AM CDT - 06/12/2024 11:59 PM CDT Hospital Encounter Department of Radiation Oncology in [address] [address] Genesis Aguilar M.D. Discharge Disposition: Home or Self Care 06/11/2024 Clinical Communication Department of Oncology in [place], [place] [address] [place] [address] Amy Ward, M.S.W., L.I.C.S.W. 06/11/2024 9:47 AM CDT - 06/11/2024 11:59 PM CDT Hospital Encounter Department of Radiation Oncology in [address] [address] Genesis Aguilar M.D. Discharge Disposition: Home or Self Care 06/10/2024 10:30 AM CDT - 06/10/2024 11:20 AM CDT Hospital Encounter Department of Radiation Oncology in [address] [address] Genesis Aguilar M.D. Grieman, Kari A, RJudyNJudy Malignant Neoplasm Of Brain (HCC) (Primary Dx) 06/07/2024 9:46 AM CDT - 06/07/2024 11:59 PM CDT Hospital Encounter Department of Radiation Oncology in [address] [address] Genesis Aguilar M.D. Discharge Disposition: Home or Self Care 06/06/2024 9:56 AM CDT - 06/06/2024 11:59 PM CDT Hospital Encounter Department of Radiation Oncology in [address] [address] Genesis Aguilar M.D. Discharge Disposition: Home or Self Care 06/05/2024 9:43 AM CDT - 06/05/2024 11:59 PM CDT Hospital Encounter Department of Radiation Oncology in [address] [address] Genesis Aguilar M.D. Discharge Disposition: Home or Self Care 06/04/2024 9:54 AM CDT - 06/04/2024 6:14 PM CDT Hospital Encounter Department of Radiation Oncology in [address] [address] Jeovanny Khalil M.D. Malignant Neoplasm Of Brain (HCC) 06/04/2024 9:53 AM CDT Hospital Encounter Department of Radiation Oncology in [address] [address] Genesis Aguilar M.D. Discharge Disposition: Home or Self Care 06/03/2024 10:00 AM CDT - 06/03/2024 11:59 PM CDT Hospital Encounter Department of Radiation Oncology in [address] [address] Genesis Aguilar M.D. Discharge Disposition: Home or Self Care 05/31/2024 10:13 AM CDT - 05/31/2024 11:59 PM CDT Hospital Encounter Department of Radiation Oncology in [address] [address] Genesis Aguilar M.D. Discharge Disposition: Home or Self Care 05/29/2024 9:58 AM CDT - 05/29/2024 11:26 AM CDT Hospital Encounter Department of Radiation Oncology in [address] [address] Genesis Aguilar M.D. Malignant Neoplasm Of Brain (HCC) 05/29/2024 9:58 AM CDT - 05/29/2024 11:59 PM CDT Hospital Encounter Department of Radiation Oncology in [address] [address] Genesis Aguilar M.D. Discharge Disposition: Home or Self Care 05/28/2024 8:50 AM CDT - 05/28/2024 9:32 AM CDT Hospital Encounter Department of Radiation Oncology in [address] [address] Mica Gonzalez M.D. Wacholz, Abigail M, M.S.W., L.I.C.S.W. Counseling Phase Of Life Problem (Primary Dx); Malignant Neoplasm Of Brain (HCC) Discharge Disposition: Home or Self Care 05/28/2024 9:33 AM CDT - 05/28/2024 11:59 PM CDT Hospital Encounter Department of Radiation Oncology in [address] [address] Genesis Aguilar M.D. Discharge Disposition: Home or Self Care 05/27/2024 9:30 AM CDT - 05/27/2024 9:44 AM CDT Hospital Encounter Department of Radiation Oncology in [address] [address] eGnesis Aguilar M.D. Grieman, Kari A, R.NJudy Malignant Neoplasm Of Brain (HCC) (Primary Dx) 05/27/2024 9:45 AM CDT - 05/27/2024 11:59 PM CDT Hospital Encounter Department of Radiation Oncology in [address] [address] Genesis Aguilar M.D. Discharge Disposition: Home or Self Care 05/24/2024 9:46 AM CDT - 05/24/2024 2:34 PM CDT Hospital Encounter Department of Radiation Oncology in [address] [address] Genesis Aguilar M.D. Grieman, Kari A, R.N. Malignant Neoplasm Of Brain (HCC) Discharge Disposition: Home or Self Care 05/24/2024 9:46 AM CDT - 05/24/2024 11:59 PM CDT Hospital Encounter Department of Radiation Oncology in [address] [address] Genesis Aguilar M.D. Discharge Disposition: Home or Self Care 05/23/2024 11:04 AM CDT - 05/23/2024 2:35 PM CDT Hospital Encounter Department of Radiation Oncology in [address] [address] Genesis Aguilar M.D. Retterath, Chelsey A, R.NJudy Malignant Neoplasm Of Brain (HCC) (Primary Dx) 05/23/2024 9:51 AM CDT - 05/23/2024 11:03 AM CDT Hospital Encounter Department of Radiation Oncology in [address] [address] Genesis Aguilar M.D. Discharge Disposition: Home or Self Care 05/22/2024 9:53 AM CDT - 05/22/2024 11:59 PM CDT Hospital Encounter Department of Radiation Oncology in [address] [address] Genesis Aguilar M.D. Discharge Disposition: Home or Self Care 05/21/2024 2:35 PM CDT - 05/21/2024 4:59 PM CDT Hospital Encounter Department of Radiation Oncology in [address] [address] Genesis Aguilar M.D. Malignant Neoplasm Of Brain (HCC) 05/21/2024 2:34 PM CDT Hospital Encounter Department of Radiation Oncology in [address] [address] Genesis Aguilar M.D. Discharge Disposition: Home or Self Care 05/20/2024 10:00 AM CDT - 05/20/2024 11:59 PM CDT Hospital Encounter Department of Radiation Oncology in [address] [address] Genesis Aguilar M.D. Discharge Disposition: Home or [...] NOT SWALLOW. 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 Patient declined 07/26/2021 Do you belong to any clubs o r organizations such as worship groups, unions, fraternal or athletic groups, or [...] Patient declined 07/26/2021 [facility] Questionnaire Answer Date [...] DT Respiratory Rate 18 10/08/2021 4:40 PM CYBER SECURITY ARCHITECT Oxygen Saturation 96% 10/08/2021 4:40 PM CYBER SECURITY ARCHITECT Inhaled Oxygen Concentration - - Weight 115 kg (254 lb 10.1 oz) 06/26/2024 10:32 AM CDT Height 177.8 cm (5' 10) 10/08/2021 3:55 PM CYBER SECURITY ARCHITECT Body Mass Index 36.54 10/08/2021 3:55 PM CYBER SECURITY ARCHITECT Plan of Treatment Not on file Medical Devices Implanted Type Area Production Cost Estimator Device Identifier Shelf Expiration Date Model / Serial / Lot [facility]p [facility] - [id number] Implanted:Qty : 1 on 09/09/2021 by Sanford Mena M.D. at [facility] Hardware e.g. pins/screws/ rods Right: Leg Ethicon [id number] 05/26/2026 [id number] / / [id number] Clp Apr [facility] - [id number] Implanted:Qty : 1 on 09/09/2021 by Sanford Mena M.D. at [facility] Hardware e.g. pins/screws/ rods Right: Leg Ethicon [id number] 05/26/2026 MSM20 / / [id number] Explanted Type Area Production Cost Estimator Device Identifier Shelf Expiration Date Model / Serial / Lot Cmnt Bn Hi Visc Pmma 40 - [id number] Implanted:Qty: 1 on 11/15/2019 by Maude Shah M.D. at [facility] Explanted:Qty: 1 on 12/03/2019 by Sanford Mena M.D. at 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) BASIC METABOLIC PANEL, S/P Routine 11/19/2019 7:46 AM CYBER SECURITY ARCHITECT from Last 3 Months or Most Recently [...] Elapsed Days 43 GARSIA ARIA Reference Point [id number] GARSIA ARIA Dosage Given to Date cGy 6000 GARSIA ARIA Plan ID [id number] GARSIA ARIA Fractions Treated to Date 30 GARSIA ARIA Planned Total Fractions 30 GARSIA ARIA Prescribed Dose Per Fraction 200 GARSIA ARIA Prescription Dose in cGy 6000 GARSIA ARIA Plan Primary Reference Point [id number] GARSIA ARIA 07/02/2024 10:0 8 AM CDT Provider Not In System RADIATION ONCOLOG Y ORDERABLES [facility] na * Aria Daily Treatment Information (07/02/2024 10:08 AM CDT) Only the most recent of31 resultswithin the time period is included. Course ID [id number] GARSIA ARIA Course Start Date 4 08:57 CDT GARSIA ARIA First Treatment Date 4 10:26 CDT GARSIA ARIA Last Treatment Date 4 10:08 CDT GARSIA ARIA Treatment Elapsed Days 43 GARSIA ARIA Reference Point [id number] GARSIA ARIA Dosage Given to Date cGy 6000 GARSIA ARIA Session Dosage Given 200 GARSIA ARIA Plan ID [id number] GARSIA ARIA Fractions Treated to Date 30 GARSIA ARIA Planned Total Fractions 30 GARSIA ARIA Prescribed Dose Per Fraction 200 GARSIA ARIA Prescription Dose in cGy 6000 GARSIA ARIA Plan Primary Reference Point [id number] GARSIA ARIA 07/02/2024 10:0 8 AM CDT Provider Not In System RADIATION ONCOLOG Y ORDERABLES GARSIA ARIA na from Last 3 Months Advance Directives For more information, please contact: [phone] * Full Code (Latest Code Status on [...] Answer Comments Full Code: Discussed Care Teams Activities Volunteer Relationship Specialty Start Date End Date Elsewhere, Pcp PCP - General Family Medicine 09/09/21
--- OUTSIDE RECORDS SUMMARY | 2024-08-20 11:46 | XMS_ITS | Encounter Summary ---
Author Organization [facility] Address [address] [place] [address] Care Team Providers Care Tube Bender Name Role Phone Elsewhere, Pcp Primary Care Provider Unavailabl e Reason for Visit * Radiation Therapy (Routine) - Authorized Specialty Diagnoses / Procedures Referred By Misa dinero Referred To Contact Diagnoses Malignant Neoplasm Of Brain (HCC) Procedures Prior Auth Rad Tx [place] IMRT COMPLEX [place] GUIDANCE FOR LOC RAD [place] IMRT RADIOTHERAPY PLAN Genesis Aguilar M.D. [address] [place] [phone] [facility] Referral ID Status Reason Start Date Expiration Date V isits Requested Visits Authorized [id number] Authorized 05/15/2024 11/26/2024 30 30 Encounter Details Date Type Department Care Team (Latest Contact Info) Description 07/01/2024 9:43 AM CDT - 07/01/2024 11:59 PM CDT Hospital Encounter Department of Radiation Oncology in [place], [place] [address] [place] [phone] Genesis Aguilar M.D. [address] [place] [phone] Discharge Disposition: Home or Self Care Social [...] declined 07/26/2021 How often do you attend pentecostal or restorationist serv ices? Patient declined 07/26/2021 Do you belong to any clubs o r organizations such as pentecostal groups, unions, fraternal or athletic groups, or [...] care, and heating? Patient declined 07/26/2021 [facility] - Occupational Stress Questionnaire Answer Date [...] to sleep or slept in a senior living (including now)? Patient refused 07/26/2021 Nutrition Answer [...] documented as of this encounter Care Teams Tube Bender Relationship Specialty Start Date End Date Elsewhere, Pcp PCP - General Family Medicine 09/09/21 documented as of this encounter
--- OUTSIDE RECORDS SUMMARY | 2024-08-20 11:46 | XMS_ITS | Encounter Summary ---
Author Organization [facility] Address [address] [place] [address] Care Team Providers Care Social Media Intern Name Role Phone Elsewhere, Pcp Primary Care Provider Unavailabl e Encounter Details Date Type Department Care Team (Latest Contact Info) Description 07/02/2024 9:38 AM CDT - 07/02/2024 11:59 PM CDT Hospital Encounter Department of Radiation Oncology in [place], [place] [address] [place] [phone] Genesis Aguilar M.D. [address] [place] [address] Discharge Disposition: Home or Self Care Social [...] How often do you attend restorationism or sabianist serv ices? Patient declined 07/26/2021 [...] medical care, and heating? Patient declined 07/26/2021 [facility] - Occupational Stress [...] place to sleep or slept in a [facility] (including now)? Patient refused 07/26/2021 Nutrition Answer [...] mouth at bedtime. 04/29/2024 miscellaneous medical supply [facility] CPAP machine for home use at pressure: [...] documented as of this encounter Care Teams Social Media Intern Relationship Specialty Start Date End Date Elsewhere, Pcp PCP - General Family Medicine 09/09/21 documented as of this encounter
--- OUTSIDE RECORDS SUMMARY | 2024-08-20 11:46 | XMS_ITS | Encounter Summary ---
Author Organization [facility] Address [address] [place] [address] Care Team Providers Care Production Counter Name Role Phone Elsewhere, Pcp Primary Care Provider Unavailabl e Reason for Visit * Radiation Therapy (Routine) - Authorized Specialty Diagnoses / Procedures Referred By Misa dinero Referred To Contact Diagnoses Malignant Neoplasm Of Brain (HCC) Procedures Prior Auth Rad Tx [place] IMRT COMPLEX [place] GUIDANCE FOR [place] RAD [place] IMRT RADIOTHERAPY PLAN Genesis Aguilar M.D. [address] [place] [phone] [facility] Referral ID Status Reason Start Date Expiration Date V isits Requested Visits Authorized [id number] Authorized 05/15/2024 11/26/2024 30 30 Encounter Details Date Type Department Care Team (Latest Contact Info) Description 06/24/2024 9:41 AM CDT - 06/24/2024 11:59 PM CDT Hospital Encounter Department of Radiation Oncology in [place], [place] [address] [place] [phone] Genesis Aguilar M.D. [address] [place] [phone] Discharge Disposition: Home or Self Care Social [...] declined 07/26/2021 How often do you attend orthodoxy or judaism serv ices? Patient declined 07/26/2021 Do you belong to any clubs o r organizations such as orthodoxy groups, unions, fraternal or athletic groups, or [...] medical care, and heating? Patient declined 07/26/2021 [facility] - Occupational Stress Questionnaire Answer [...] documented as of this encounter Care Teams Production Counter Relationship Specialty Start Date End Date Elsewhere, Pcp PCP - General Family Medicine 09/09/21 documented as of this encounter
--- OUTSIDE RECORDS SUMMARY | 2024-08-20 11:47 | XMS_ITS | Encounter Summary ---
Author Organization [facility] Address [address] [place] [address] Care Team Providers Care Boiler Testing Technician Name Role Phone Elsewhere, Pcp Primary Care Provider Unavailabl e Reason for Visit * Radiation Therapy (Routine) - Authorized Specialty Diagnoses / Procedures Referred By Misa dinero Referred To Contact Diagnoses Malignant Neoplasm Of Brain (HCC) Procedures Prior Auth Rad Tx [place] IMRT COMPLEX [place] GUIDANCE FOR LOC RAD TX [place] IMRT RADIOTHERAPY PLAN Genesis Aguilar M.D. [address] [place] [phone] [facility] Referral ID Status Reason Start Date Expiration Date V isits Requested Visits Authorized [id number] Authorized 05/15/2024 11/26/2024 30 30 Encounter Details Date Type Department Care Team (Latest Contact Info) Description 06/14/2024 9:43 AM CDT - 06/14/2024 11:59 PM CDT Hospital Encounter Department of Radiation Oncology in [place], [place] [address] [place] [phone] Genesis Aguilar M.D. [address] [place] [phone] Discharge Disposition: Home or Self Care Social [...] How often do you attend yazidi or sabianism serv ices? Patient declined 07/26/2021 Do you [...] medical care, and heating? Patient declined 07/26/2021 [facility] - Occupational Stress Questionnaire Answer Date [...] mouth at bedtime. 04/29/2024 miscellaneous medical supply [facility] CPAP machine for home use at pressure: [...] as of this encounter Care Teams Boiler Testing Technician Relationship Specialty Start Date End Date Elsewhere, Pcp PCP - General Family Medicine 09/09/21 documented as of this encounter
--- OUTSIDE RECORDS SUMMARY | 2024-08-20 11:47 | XMS_ITS | Encounter Summary ---
Author Organization [facility] Address [address] [place] [address] Care Team Providers Care Channeler Outsole Name Role Phone Elsewhere, Pcp Primary Care Provider Unavailabl e Reason for Visit * Radiation Therapy (Routine) - Authorized Specialty Diagnoses / Procedures Referred By Misa dinero Referred To Contact Diagnoses Malignant Neoplasm Of Brain (HCC) Procedures Prior Auth Rad Tx [place] IMRT COMPLEX [place] GUIDANCE FOR LOC RAD TX [place] IMRT RADIOTHERAPY PLAN Genesis Aguilar M.D. [address] [place] [phone] [facility] Referral ID Status Reason Start Date Expiration Date V isits Requested Visits Authorized [id number] Authorized 05/15/2024 11/26/2024 30 30 Encounter Details Date Type Department Care Team (Latest Contact Info) Description 06/20/2024 9:36 AM CDT - 06/20/2024 11:59 PM CDT Hospital Encounter Department of Radiation Oncology in [place], [place] [address] [place] [phone] Genesis Aguilar M.D. [address] [place] [phone] Discharge Disposition: Home or Self Care Social [...] declined 07/26/2021 How often do you attend latter day or spiritism serv ices? Patient declined 07/26/2021 Do you belong to any clubs o r organizations such as latter day groups, unions, fraternal or athletic groups, or [...] Patient declined 07/26/2021 [facility] - Occupational Stress Questionnaire Answer Date [...] documented as of this encounter Care Teams Channeler Outsole Relationship Specialty Start Date End Date Elsewhere, Pcp PCP - General Family Medicine 09/09/21 documented as of this encounter
--- OUTSIDE RECORDS SUMMARY | 2024-08-20 11:47 | XMS_ITS | Encounter Summary ---
Author Organization [facility] Address [address] [place] [address] Care Team Providers Care Hyperion Essbase Developer Name Role Phone Elsewhere, Pcp Primary Care Provider Unavailabl e Reason for Visit * Radiation Therapy (Routine) - Authorized Specialty Diagnoses / Procedures Referred By Misa dinero Referred To Contact Diagnoses Malignant Neoplasm Of Brain (HCC) Procedures Prior Auth Rad Tx [place] IMRT COMPLEX [place] GUIDANCE FOR LOC RAD TX [place] IMRT RADIOTHERAPY PLAN Genesis Aguilar M.D. [address] [place] [phone] [facility] Referral ID Status Reason Start Date Expiration Date V isits Requested Visits Authorized [id number] Authorized 05/15/2024 11/26/2024 30 30 Encounter Details Date Type Department Care Team (Latest Contact Info) Description 06/11/2024 9:47 AM CDT - 06/11/2024 11:59 PM CDT Hospital Encounter Department of Radiation Oncology in [place], [place] [address] [place] [phone] Genesis Aguilar M.D. [address] [place] [phone] Discharge Disposition: Home or Self Care Social [...] How often do you attend hinduism or baptist serv ices? Patient declined 07/26/2021 Do you [...] Patient declined 07/26/2021 [facility] - Occupational Stress Questionnaire Answer Date [...] at bedtime. 04/29/2024 miscellaneous medical supply [facility] CPAP machine for home use at pressure: [...] documented as of this encounter Care Teams Hyperion Essbase Developer Relationship Specialty Start Date End Date Elsewhere, Pcp PCP - General Family Medicine 09/09/21 documented as of this encounter
--- OUTSIDE RECORDS SUMMARY | 2024-08-20 11:47 | XMS_ITS | Encounter Summary ---
Author Organization [facility] Address [address] [place] [address] Care Team Providers Care Traffic Division Commanding Officer Name Role Phone Elsewhere, Pcp Primary Care Provider Unavailabl e Reason for Referral * Radiation Therapy (Routine) - Authorized Specialty Diagnoses / Procedures Referred By Misa dinero Referred To Contact Diagnoses Malignant Neoplasm Of Brain (HCC) Procedures Management Visit Genesis Aguilar M.D. [address] [place] [address] [facility] Region Referral ID Status Reason Start Date Expiration Date V isits Requested Visits Authorized [id number] Authorized 05/03/2024 05/03/2025 10 10 Reason for Visit * Radiation Therapy (Routine) - Authorized Specialty Diagnoses / Procedures Referred By Misa dinero Referred To Contact Diagnoses Malignant Neoplasm Of Brain (HCC) Procedures Management Visit Genesis Aguilar M.D. [address] [place] [address] [facility] Region Referral ID Status Reason Start Date Expiration Date V isits Requested Visits Authorized [id number] Authorized 05/03/2024 05/03/2025 10 10 Encounter Details Date Type Department Care Team (Latest Contact Info) Description 06/19/2024 9:14 AM CDT - 06/19/2024 2:50 PM CDT Hospital Encounter Department of Radiation Oncology in [place], [place] [address] [place] [phone] Genesis Aguilar M.D. [address] [place] [address] Malignant Neoplasm Of Brain (HCC) Social History [...] declined 07/26/2021 How often do you attend confucianism or pentecostalism serv ices? Patient declined 07/26/2021 Do you belong to any clubs o r organizations such as confucianism groups, unions, fraternal or athletic groups, or [...] heating? Patient declined 07/26/2021 [facility] ional [facility] - Occupational [...] Body Mass Index 36.06 10/08/2021 3:55 PM PHARMACY CLINICAL COORDINATOR documented in this encounter Medications at Time [...] mouth at bedtime. 04/29/2024 miscellaneous medical supply [facility] CPAP machine for [...] (cGy) First Treatment Last Treatment Elapsed Days [id number] 200 4200 6000 05/20/2024 06/19/2024 Course Summary [...] lower dose. This is being by his [facility] Neurologist. 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
--- OUTSIDE RECORDS SUMMARY | 2024-08-20 11:47 | XMS_ITS | Encounter Summary ---
Author Organization [facility] Address [address] [place] [address] Care Team Providers Care Pouncer Name Role Phone Elsewhere, Pcp Primary Care Provider Unavailabl e Reason for Visit * Radiation Therapy (Routine) - Authorized Specialty Diagnoses / Procedures Referred By Misa dinero Referred To Contact Diagnoses Malignant Neoplasm Of Brain (HCC) Procedures Prior Auth Rad Tx [place] IMRT COMPLEX [place] GUIDANCE FOR LOC RAD TX NC IMRT RADIOTHERAPY PLAN Genesis Aguilar M.D. [address] [place] [phone] [facility] Referral ID Status Reason Start Date Expiration Date V isits Requested Visits Authorized [id number] Authorized 05/15/2024 11/26/2024 30 30 Encounter Details Date Type Department Care Team (Latest Contact Info) Description 06/13/2024 9:40 AM CDT - 06/13/2024 11:59 PM CDT Hospital Encounter Department of Radiation Oncology in [place], [place] [address] [place] [phone] Genesis Aguilar M.D. [address] [place] [phone] Discharge Disposition: Home or Self Care Social [...] How often do you attend evangelical or druze serv ices? Patient declined 07/26/2021 [...] Patient declined 07/26/2021 [facility] - Occupational Stress Questionnaire Answer [...] at bedtime. 04/29/2024 miscellaneous medical supply [facility] CPAP machine for home use [...] documented as of this encounter Care Teams Pouncer Relationship Specialty Start Date End Date Elsewhere, Pcp PCP - General Family Medicine 09/09/21 documented as of this encounter
--- OUTSIDE RECORDS SUMMARY | 2024-08-20 11:47 | XMS_ITS | Encounter Summary ---
Author Organization [facility] Address [address] [place] [address] Care Team Providers Care Ski Patrol Name Role Phone Elsewhere, Pcp Primary Care Provider Unavailabl e Reason for Visit * Radiation Therapy (Routine) - Authorized Specialty Diagnoses / Procedures Referred By Misa dinero Referred To Contact Diagnoses Malignant Neoplasm Of Brain (HCC) Procedures Prior Auth Rad Tx PA IMRT COMPLEX PA GUIDANCE FOR LOC RAD TX PA IMRT RADIOTHERAPY PLAN Genesis Aguilar M.D. [address] [place] [phone] [facility] Referral ID Status Reason Start Date Expiration Date V isits Requested Visits Authorized [id number] Authorized 05/15/2024 11/26/2024 30 30 Encounter Details Date Type Department Care Team (Latest Contact Info) Description 06/07/2024 9:46 AM CDT - 06/07/2024 11:59 PM CDT Hospital Encounter Department of Radiation Oncology in [place], [place] [address] [place] [phone] Genesis Aguilar M.D. [address] [place] [phone] Discharge Disposition: Home or Self Care Social [...] How often do you attend restoration or nondenominational serv ices? Patient declined 07/26/2021 Do you [...] declined 07/26/2021 [facility] - Occupational Stress Questionnaire Answer Date Recorded [...] documented as of this encounter Care Teams Ski Patrol Relationship Specialty Start Date End Date Elsewhere, Pcp PCP - General Family Medicine 09/09/21 documented as of this encounter
--- OUTSIDE RECORDS SUMMARY | 2024-08-20 11:47 | XMS_ITS | Encounter Summary ---
Author Organization [facility] Address [address] [place] [address] Care Team Providers Care Security Sergeant Name Role Phone Elsewhere, Pcp Primary Care Provider Unavailabl e Reason for Visit * Radiation Therapy (Routine) - Authorized Specialty Diagnoses / Procedures Referred By Misa dinero Referred To Contact Diagnoses Malignant Neoplasm Of Brain (HCC) Procedures Prior Auth Rad Tx [place] IMRT COMPLEX [place] GUIDANCE FOR LOC RAD TX [place] IMRT RADIOTHERAPY PLAN Genesis Aguilar M.D. [address] [place] [phone] [facility] Referral ID Status Reason Start Date Expiration Date V isits Requested Visits Authorized [id number] Authorized 05/15/2024 11/26/2024 30 30 Encounter Details Date Type Department Care Team (Latest Contact Info) Description 06/19/2024 9:14 AM CDT - 06/19/2024 11:59 PM CDT Hospital Encounter Department of Radiation Oncology in [place], [place] [address] [place] [phone] Genesis Aguilar M.D. [address] [place] [phone] Discharge Disposition: Home or Self Care Social [...] declined 07/26/2021 How often do you attend moravian or sabianist serv ices? Patient declined 07/26/2021 Do you belong to any clubs o r organizations such as moravian groups, unions, fraternal or athletic groups, or [...] care, and heating? Patient declined 07/26/2021 [facility] - Occupational Stress Questionnaire Answer [...] documented as of this encounter Care Teams Security Sergeant Relationship Specialty Start Date End Date Elsewhere, Pcp PCP - General Family Medicine 09/09/21 documented as of this encounter
--- OUTSIDE RECORDS SUMMARY | 2024-08-20 11:47 | XMS_ITS | Encounter Summary ---
Author Organization [facility] Address [address] [place] [address] Care Team Providers Care Eight Arm Operator Name Role Phone Elsewhere, Pcp Primary Care Provider Unavailabl e Reason for Visit * Radiation Therapy (Routine) - Authorized Specialty Diagnoses / Procedures Referred By Misa dinero Referred To Contact Diagnoses Malignant Neoplasm Of Brain (HCC) Procedures Prior Auth Rad Tx PA IMRT COMPLEX PA GUIDANCE FOR LOC RAD TX PA IMRT RADIOTHERAPY PLAN Genesis Aguilar M.D. [address] [place] [phone] [facility] Referral ID Status Reason Start Date Expiration Date V isits Requested Visits Authorized [id number] Authorized 05/15/2024 11/26/2024 30 30 Encounter Details Date Type Department Care Team (Latest Contact Info) Description 06/18/2024 9:49 AM CDT - 06/18/2024 11:59 PM CDT Hospital Encounter Department of Radiation Oncology in [place], [place] [address] [place] [phone] Genesis Aguilar M.D. [address] [place] [phone] Discharge Disposition: Home or Self Care Social [...] How often do you attend catholic or mu-ism serv ices? Patient declined 07/26/2021 [...] declined 07/26/2021 [facility] - Occupational Stress Questionnaire Answer [...] documented as of this encounter Care Teams Eight Arm Operator Relationship Specialty Start Date End Date Elsewhere, Pcp PCP - General Family Medicine 09/09/21 documented as of this encounter
--- OUTSIDE RECORDS SUMMARY | 2024-08-20 11:47 | XMS_ITS | Encounter Summary ---
Author Organization [facility] Address [address] [place] [address] Care Team Providers Care Rug Shampooer Name Role Phone Elsewhere, Pcp Primary Care Provider Unavailabl e Reason for Referral * Outpatient (Routine) - Authorized Specialty Diagnoses / Procedures Referred By Contac t Referred To Contact Radiation Oncology Genesis Aguilar M.D. [address] [place] [phone] [facility] Region Referral ID Status Reason Start Date Expiration Date V isits Requested Visits Authorized [id number] Authorized 05/23/2024 11/22/2025 5 5 Reason for Visit * Outpatient (Routine) - Authorized Specialty Diagnoses / Procedures Referred By Misa dinero Referred To Contact Radiation Oncology Genesis Aguilar M.D. [address] [place] [phone] [facility] Region Referral ID Status Reason Start Date Expiration Date V isits Requested Visits Authorized [id number] Authorized 05/23/2024 11/22/2025 5 5 Encounter Details Date Type Department Care Team (Latest Contact Info) Description 06/10/2024 10:30 AM CDT - 06/10/2024 11:20 AM CDT Hospital Encounter Department of Radiation Oncology in [place], [place] [address] [place] [phone] Genesis Aguilar M.D. [address] [place] [phone] Jessica Arevalo R.N. [address] [place] [address] Malignant Neoplasm Of Brain (HCC) (Primary Dx) [...] How often do you attend moravian or presybeterian serv ices? Patient declined 07/26/2021 [...] medical care, and heating? Patient declined 07/26/2021 [facility] of Occupat ional Health - Occupational Stress [...] at bedtime. 04/29/2024 miscellaneous medical supply [facility] CPAP machine for [...] total resection of a right temporal glioblastoma (EXCHANGE CLERK who grade 4), IDH negative. Patient is [...] has appointment with his Neuro team at [facility] [address] Ryder confirmed last [...] documented as of this encounter Care Teams Rug Shampooer Relationship Specialty Start Date End Date Elsewhere, Pcp PCP - General Family Medicine 09/09/21 documented as of this encounter
--- OUTSIDE RECORDS SUMMARY | 2024-08-20 11:47 | XMS_ITS | Encounter Summary ---
Author Organization [facility] Address [address] [place] [address] Care Team Providers Care Black Top Machine Operator Name Role Phone Elsewhere, Pcp Primary Care Provider Unavailabl e Reason for Visit * Radiation Therapy (Routine) - Authorized Specialty Diagnoses / Procedures Referred By Misa dinero Referred To Contact Diagnoses Malignant Neoplasm Of Brain (HCC) Procedures Prior Auth Rad Tx CT IMRT COMPLEX CT GUIDANCE FOR LOC RAD TX CT IMRT RADIOTHERAPY PLAN Genesis Aguilar M.D. [address] [place] [phone] [facility] Referral ID Status Reason Start Date Expiration Date V isits Requested Visits Authorized [id number] Authorized 05/15/2024 11/26/2024 30 30 Encounter Details Date Type Department Care Team (Latest Contact Info) Description 06/21/2024 9:28 AM CDT - 06/21/2024 11:59 PM CDT Hospital Encounter Department of Radiation Oncology in [place], [place] [address] [place] [phone] Genesis Aguilar M.D. [address] [place] [phone] Discharge Disposition: Home or Self Care Social [...] declined 07/26/2021 How often do you attend christian or mandaeism serv ices? Patient declined 07/26/2021 Do you belong to any clubs o r organizations such as christian groups, unions, fraternal or athletic groups, or [...] medical care, and heating? Patient declined 07/26/2021 [facility] - Occupational Stress Questionnaire Answer Date [...] mouth at bedtime. 04/29/2024 miscellaneous medical supply [facility] CPAP machine for home use at pressure: [...] documented as of this encounter Care Teams Black Top Machine Operator Relationship Specialty Start Date End Date Elsewhere, Pcp PCP - General Family Medicine 09/09/21 documented as of this encounter
--- OUTSIDE RECORDS SUMMARY | 2024-08-20 11:47 | XMS_ITS | Encounter Summary ---
Author Organization [facility] Address [address] [place] [address] Care Team Providers Care Anode Builder Name Role Phone Elsewhere, Pcp Primary Care Provider Unavailabl e Encounter Details Date Type Department Care Team (Late st Contact Info) Description 06/11/2024 Clinical Communication Department of Oncology in [place], [place] [address] [place] [address] Amy Ward, M.S.W., L.I.C.S.W. [address] [place] [address] Social History Tobacco Use Types Packs/Day Years [...] declined 07/26/2021 How often do you attend sikhism or islam serv ices? Patient declined 07/26/2021 Do you belong to any clubs o r organizations such as sikhism groups, unions, fraternal or athletic groups, or [...] medical care, and heating? Patient declined 07/26/2021 [facility] of Occupat ional Health - [...] for financial resources available that patient and teletypewriter operator talked about at our visit. Patient was included in an email for assistance from [employer] however states he did not receives the emails, confirmed it was sent to [employer]. Patient was also told to watch for [...] documented as of this encounter Care Teams Anode Builder Relationship Specialty Start Date End Date Elsewhere, Pcp PCP - General Family Medicine 09/09/21 documented as of this encounter
--- OUTSIDE RECORDS SUMMARY | 2024-08-20 11:47 | XMS_ITS | Encounter Summary ---
Author Organization [facility] Address [address] [place] [address] Care Team Providers Care Deburrer Machine Name Role Phone Elsewhere, Pcp Primary Care Provider Unavailabl e Reason for Referral * Radiation Therapy (Routine) - Authorized Specialty Diagnoses / Procedures Referred By Misa dinero Referred To Contact Diagnoses Malignant Neoplasm Of Brain (HCC) Procedures Management Visit Genesis Aguilar M.D. [address] [place] [address] [facility] Region Referral ID Status Reason Start Date Expiration Date V isits Requested Visits Authorized [id number] Authorized 05/03/2024 05/03/2025 10 10 Reason for Visit * Radiation Therapy (Routine) - Authorized Specialty Diagnoses / Procedures Referred By Misa dinero Referred To Contact Diagnoses Malignant Neoplasm Of Brain (HCC) Procedures Management Visit Genesis Aguilar M.D. [address] [place] [address] [facility] Region Referral ID Status Reason Start Date Expiration Date V isits Requested Visits Authorized [id number] Authorized 05/03/2024 05/03/2025 10 10 Encounter Details Date Type Department Care Team (Latest Contact Info) Description 06/12/2024 9:44 AM CDT - 06/12/2024 12:55 PM CDT Hospital Encounter Department of Radiation Oncology in [place], [place] [address] [place] [phone] Genesis Aguilar M.D. [address] [place] [address] Malignant Neoplasm Of Brain (HCC) Social History [...] How often do you attend jainism or mormonism serv ices? Patient declined 07/26/2021 Do you [...] declined 07/26/2021 [facility] ional Health - Occupational [...] Body Mass Index 35.97 10/08/2021 3:55 PM TUNNEL FORM PLACING SUPERVISOR documented in this encounter Medications at Time [...] at bedtime. 04/29/2024 miscellaneous medical supply [facility] CPAP machine for home use at pressure: [...] (cGy) First Treatment Last Treatment Elapsed Days [id number] 200 3200 6000 05/20/2024 06/12/2024 Course Summary [...] ASSESSMENT / PLAN #1 Right temporal glioblastoma (SENIOR BUSINESS PROCESS ANALYST who grade 4), IDH negative, MGMT and [...] documented as of this encounter Care Teams Deburrer Machine Relationship Specialty Start Date End Date Elsewhere, Pcp PCP - General Family Medicine 09/09/21 documented as of this encounter
--- OUTSIDE RECORDS SUMMARY | 2024-08-20 11:47 | XMS_ITS | Encounter Summary ---
Author Organization [facility] Address [address] [place] [address] Care Team Providers Care Griddle Attendant Name Role Phone Elsewhere, Pcp Primary Care Provider Unavailabl e Reason for Visit * Radiation Therapy (Routine) - Authorized Specialty Diagnoses / Procedures Referred By Misa dinero Referred To Contact Diagnoses Malignant Neoplasm Of Brain (HCC) Procedures Prior Auth Rad Tx [place] IMRT COMPLEX ME GUIDANCE FOR LOC RAD TX ME IMRT RADIOTHERAPY PLAN Genesis Aguilar M.D. [address] [place] [phone] [facility] Referral ID Status Reason Start Date Expiration Date V isits Requested Visits Authorized [id number] Authorized 05/15/2024 11/26/2024 30 30 Encounter Details Date Type Department Care Team (Latest Contact Info) Description 06/12/2024 9:44 AM CDT - 06/12/2024 11:59 PM CDT Hospital Encounter Department of Radiation Oncology in [place], [place] [address] [place] [phone] Genesis Aguilar M.D. [address] [place] [phone] Discharge Disposition: Home or Self Care Social [...] declined 07/26/2021 How often do you attend advent or buddhism serv ices? Patient declined 07/26/2021 Do you belong to any clubs o r organizations such as advent groups, unions, fraternal or athletic groups, or [...] medical care, and heating? Patient declined 07/26/2021 [facility] - Occupational Stress Questionnaire Answer Date Recorded [...] bedtime. 04/29/2024 miscellaneous medical supply [facility] CPAP machine for home use at pressure: [...] documented as of this encounter Care Teams Griddle Attendant Relationship Specialty Start Date End Date Elsewhere, Pcp PCP - General Family Medicine 09/09/21 documented as of this encounter
--- OUTSIDE RECORDS SUMMARY | 2024-08-20 11:47 | XMS_ITS | Encounter Summary ---
Author Organization [facility] Address [address] [place] [address] Care Team Providers Care Transportation Clerk Name Role Phone Elsewhere, Pcp Primary Care Provider Unavailabl e Reason for Visit * Radiation Therapy (Routine) - Authorized Specialty Diagnoses / Procedures Referred By Misa dinero Referred To Contact Diagnoses Malignant Neoplasm Of Brain (HCC) Procedures Prior Auth Rad Tx NE IMRT COMPLEX NE GUIDANCE FOR LOC RAD TX NE IMRT RADIOTHERAPY PLAN Genesis Aguilar M.D. [address] [place] [phone] [facility] Referral ID Status Reason Start Date Expiration Date V isits Requested Visits Authorized [id number] Authorized 05/15/2024 11/26/2024 30 30 Encounter Details Date Type Department Care Team (Latest Contact Info) Description 06/06/2024 9:56 AM CDT - 06/06/2024 11:59 PM CDT Hospital Encounter Department of Radiation Oncology in [place], [place] [address] [place] [phone] Genesis Aguilar M.D. [address] [place] [phone] Discharge Disposition: Home or Self Care Social [...] declined 07/26/2021 How often do you attend baptist or yarsani serv ices? Patient declined 07/26/2021 Do you belong to any clubs o r organizations such as baptist groups, unions, fraternal or athletic groups, or [...] care, and heating? Patient declined 07/26/[address]21 [facility] - Occupational Stress Questionnaire Answer Date [...] mouth at bedtime. 04/29/2024 miscellaneous medical supply [facility] CPAP [place] for home [...] documented as of this encounter Care Teams Transportation Clerk Relationship Specialty Start Date End Date Elsewhere, Pcp PCP - General Family Medicine 09/09/21 documented as of this encounter
--- OUTSIDE RECORDS SUMMARY | 2024-08-20 11:47 | XMS_ITS | Encounter Summary ---
Author Organization [facility] Address [address] [place] [address] Care Team Providers Care Examining Chair Assembler Name Role Phone Elsewhere, Pcp Primary Care Provider Unavailabl e Reason for Visit * Radiation Therapy (Routine) - Authorized Specialty Diagnoses / Procedures Referred By Misa dinero Referred To Contact Diagnoses Malignant Neoplasm Of Brain (HCC) Procedures Prior Auth Rad Tx OR IMRT COMPLEX OR GUIDANCE FOR LOC RAD TX OR IMRT RADIOTHERAPY PLAN Genesis Aguilar M.D. [address] [place] [phone] [facility] Referral ID Status Reason Start Date Expiration Date V isits Requested Visits Authorized [id number] Authorized 05/15/2024 11/26/2024 30 30 Encounter Details Date Type Department Care Team (Latest Contact Info) Description 06/17/2024 9:40 AM CDT - 06/17/2024 11:59 PM CDT Hospital Encounter Department of Radiation Oncology in [place], [place] [address] [place] [phone] Genesis Aguilar M.D. [address] [place] [phone] Discharge Disposition: Home or Self Care Social [...] declined 07/26/2021 How often do you attend mandaen or orthodox serv ices? Patient declined 07/26/2021 Do you belong to any clubs o r organizations such as mandaen groups, unions, fraternal or athletic groups, or [...] medical care, and heating? Patient declined 07/26/2021 [facility] - Occupational Stress Questionnaire Answer [...] documented as of this encounter Care Teams Examining Chair Assembler Relationship Specialty Start Date End Date Elsewhere, Pcp PCP - General Family Medicine 09/09/21 documented as of this encounter
--- OUTSIDE RECORDS SUMMARY | 2024-08-20 11:48 | XMS_ITS | Encounter Summary ---
Author Organization [facility] Address [address] [place] [address] Care Team Providers Care Condenser Tester Name Role Phone Elsewhere, Pcp Primary Care Provider Unavailabl e Reason for Referral * Radiation Therapy (Routine) - Authorized Specialty Diagnoses / Procedures Referred By Misa dinero Referred To Contact Diagnoses Malignant Neoplasm Of Brain (HCC) Procedures Management Visit Genesis Aguilar M.D. [address] [place] [address] [facility] Region Referral ID Status Reason Start Date Expiration Date V isits Requested Visits Authorized [id number] Authorized 05/03/2024 05/03/2025 10 10 Reason for Visit * Radiation Therapy (Routine) - Authorized Specialty Diagnoses / Procedures Referred By Misa dinero Referred To Contact Diagnoses Malignant Neoplasm Of Brain (HCC) Procedures Management Visit Genesis Aguilar M.D. [address] [place] [address] [facility] Region Referral ID Status Reason Start Date Expiration Date V isits Requested Visits Authorized [id number] Authorized 05/03/2024 05/03/2025 10 10 Encounter Details Date Type Department Care Team (Latest Contact Info) Description 05/29/2024 9:58 AM CDT - 05/29/2024 11:26 AM CDT Hospital Encounter Department of Radiation Oncology in [place], [place] [address] [place] [phone] Genesis Aguilar M.D. [address] [place] [address] Malignant Neoplasm Of Brain (HCC) Social History [...] often do you attend latter day or temple serv ices? Patient declined 07/26/2021 [...] medical care, and heating? Patient declined 07/26/2021 [facility] Occupat ional [facility] - Occupational [...] Body Mass Index 34.73 10/08/2021 3:55 PM IMMIGRATION PATROL INSPECTOR documented in this encounter Medications at Time [...] total resection of a right temporal glioblastoma (BACK UP SCAN COORDINATOR who grade 4), IDH negative. Patient is now undergoing radiation therapy concurrent with Temodar. 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
--- OUTSIDE RECORDS SUMMARY | 2024-08-20 11:48 | XMS_ITS | Encounter Summary ---
Author Organization [facility] Address [address] [place] [address] Care Team Providers Care Center Manager Name Role Phone Elsewhere, Pcp Primary Care Provider Unavailabl e Reason for Visit * Radiation Therapy (Routine) - Authorized Specialty Diagnoses / Procedures Referred By Misa dinero Referred To Contact Diagnoses Malignant Neoplasm Of Brain (HCC) Procedures Prior Auth Rad Tx MA IMRT COMPLEX MA GUIDANCE FOR LOC RAD TX MA IMRT RADIOTHERAPY PLAN Genesis Aguilar M.D. [address] [place] [phone] [facility] Referral ID Status Reason Start Date Expiration Date V isits Requested Visits Authorized [id number] Authorized 05/15/2024 11/26/2024 30 30 Encounter Details Date Type Department Care Team (Latest Contact Info) Description 06/05/2024 9:43 AM CDT - 06/05/2024 11:59 PM CDT Hospital Encounter Department of Radiation Oncology in [place], [place] [address] [place] [phone] Genesis Aguilar M.D. [address] [place] [phone] Discharge Disposition: Home or Self Care Social [...] declined 07/26/2021 How often do you attend sabianism or sikhism serv ices? Patient declined 07/26/2021 Do you belong to any clubs o r organizations such as sabianism groups, unions, fraternal or athletic groups, or [...] Patient declined 07/26/2021 [facility] - Occupational Stress Questionnaire Answer [...] at bedtime. 04/29/2024 miscellaneous medical supply [facility] CPAP machine for [...] documented as of this encounter Care Teams Center Manager Relationship Specialty Start Date End Date Elsewhere, Pcp PCP - General Family Medicine 09/09/21 documented as of this encounter
--- OUTSIDE RECORDS SUMMARY | 2024-08-20 11:48 | XMS_ITS | Encounter Summary ---
Author Organization [facility] Address [address] [place] [address] Care Team Providers Care Pizzamaker Name Role Phone Elsewhere, Pcp Primary Care Provider Unavailabl e Reason for Visit * Radiation Therapy (Routine) - Authorized Specialty Diagnoses / Procedures Referred By Misa dinero Referred To Contact Diagnoses Malignant Neoplasm Of Brain (HCC) Procedures Prior Auth Rad Tx [place] IMRT COMPLEX [place] GUIDANCE FOR LOC RAD TX [place] IMRT RADIOTHERAPY PLAN Genesis Aguilar M.D. [address] [place] [phone] [facility] Referral ID Status Reason Start Date Expiration Date V isits Requested Visits Authorized [id number] Authorized 05/15/2024 11/26/2024 30 30 Encounter Details Date Type Department Care Team (Latest Contact Info) Description 05/24/2024 9:46 AM CDT - 05/24/2024 11:59 PM CDT Hospital Encounter Department of Radiation Oncology in [place], [place] [address] [place] [phone] Genesis Aguilar M.D. [address] [place] [phone] Discharge Disposition: Home or Self Care Social [...] often do you attend roman catholic or evangelical serv ices? Patient declined 07/26/2021 [...] heating? Patient declined 07/26/2021 [facility] - Occupational Stress Questionnaire Answer [...] 04/29/2024 miscellaneous medical supply [facility] CPAP machine for home use [...] on filedocumented in this encounter Care Teams Pizzamaker Relationship Specialty Start Date End Date Elsewhere, Pcp PCP - General Family Medicine 09/09/21 documented as of this encounter
--- OUTSIDE RECORDS SUMMARY | 2024-08-20 11:48 | XMS_ITS | Encounter Summary ---
Author Organization [facility] Address [address] [place] [address] Care Team Providers Care Call Center Support Representative Name Role Phone Elsewhere, Pcp Primary Care Provider Unavailabl e Reason for Visit * Radiation Therapy (Routine) - Authorized Specialty Diagnoses / Procedures Referred By Misa dinero Referred To Contact Diagnoses Malignant Neoplasm Of Brain (HCC) Procedures Prior Auth Rad Tx CO IMRT COMPLEX CO GUIDANCE FOR LOC RAD TX CO IMRT RADIOTHERAPY PLAN Genesis Aguilar M.D. [address] [place] [phone] [facility] Referral ID Status Reason Start Date Expiration Date V isits Requested Visits Authorized [id number] Authorized 05/15/2024 11/26/2024 30 30 Encounter Details Date Type Department Care Team (Latest Contact Info) Description 06/04/2024 9:53 AM CDT Hospital Encounter Department of Radiation Oncology in [place], [place] [address] [place] [phone] Genesis Aguilar M.D. [address] [place] [phone] Discharge Disposition: Home or Self Care Social [...] How often do you attend nondenominational or taoism serv ices? Patient declined 07/26/2021 [...] documented as of this encounter Care Teams Call Center Support Representative Relationship Specialty Start Date End Date Elsewhere, Pcp PCP - General Family Medicine 09/09/21 documented as of this encounter
--- OUTSIDE RECORDS SUMMARY | 2024-08-20 11:48 | XMS_ITS | Encounter Summary ---
Author Organization [facility] Address [address] [place] [address] Care Team Providers Care Assistant Therapy Aide Name Role Phone Elsewhere, Pcp Primary Care Provider Unavailabl e Reason for Visit * Radiation Therapy (Routine) - Authorized Specialty Diagnoses / Procedures Referred By Misa dinero Referred To Contact Diagnoses Malignant Neoplasm Of Brain (HCC) Procedures Prior Auth Rad Tx OR IMRT COMPLEX OR GUIDANCE FOR LOC RAD TX OR IMRT RADIOTHERAPY PLAN Genesis Aguilar M.D. [address] [place] [phone] [facility] Referral ID Status Reason Start Date Expiration Date V isits Requested Visits Authorized [id number] Authorized 05/15/2024 11/26/2024 30 30 Encounter Details Date Type Department Care Team (Latest Contact Info) Description 05/31/2024 10:13 AM CDT - 05/31/2024 11:59 PM CDT Hospital Encounter Department of Radiation Oncology in [place], [place] [address] [place] [phone] Genesis Aguilar M.D. [address] [place] [phone] Discharge Disposition: Home or Self Care Social [...] How often do you attend catholic or druze serv ices? Patient declined 07/26/2021 [...] Patient declined 07/26/2021 [facility] - Occupational Stress Questionnaire Answer Date [...] mouth at bedtime. 04/29/2024 miscellaneous medical supply [facility] CPAP machine for home use at pressure: [...] documented as of this encounter Care Teams Assistant Therapy Aide Relationship Specialty Start Date End Date Elsewhere, Pcp PCP - General Family Medicine 09/09/21 documented as of this encounter
--- OUTSIDE RECORDS SUMMARY | 2024-08-20 11:48 | XMS_ITS | Encounter Summary ---
Author Organization [facility] Address [address] [place] [address] Care Team Providers Care Pricing Lead Name Role Phone Elsewhere, Pcp Primary Care Provider Unavailabl e Reason for Visit * Radiation Therapy (Routine) - Authorized Specialty Diagnoses / Procedures Referred By Misa dinero Referred To Contact Diagnoses Malignant Neoplasm Of Brain (HCC) Procedures Prior Auth Rad Tx SD IMRT COMPLEX SD GUIDANCE FOR LOC RAD TX SD IMRT RADIOTHERAPY PLAN Genesis Aguilar M.D. [address] [place] [phone] [facility] Referral ID Status Reason Start Date Expiration Date V isits Requested Visits Authorized [id number] Authorized 05/15/2024 11/26/2024 30 30 Encounter Details Date Type Department Care Team (Latest Contact Info) Description 05/28/2024 9:33 AM CDT - 05/28/2024 11:59 PM CDT Hospital Encounter Department of Radiation Oncology in [place], [place] [address] [place] [phone] Genesis Aguilar M.D. [address] [place] [phone] Discharge Disposition: Home or Self Care Social [...] How often do you attend zoroastrianism or church serv ices? Patient declined 07/26/2021 [...] [facility] - Occupational Stress Questionnaire Answer [...] documented as of this encounter Care Teams Pricing Lead Relationship Specialty Start Date End Date Elsewhere, Pcp PCP - General Family Medicine 09/09/21 documented as of this encounter
--- OUTSIDE RECORDS SUMMARY | 2024-08-20 11:48 | XMS_ITS | Encounter Summary ---
Author Organization [facility] Address [address] [place] [address] Care Team Providers Care Barber Shop Manager Name Role Phone Elsewhere, Pcp Primary Care Provider Unavailabl e Reason for Referral * Outpatient (Routine) - Closed Specialty Diagnoses / Procedures Referred By Misa dinero Referred To Contact Social Work Diagnoses Malignant Neoplasm Of Brain (HCC) Mica Gonzalez M.D. [address] [place] [address] [facility] Referral ID Status Reason Start Date Expiration Date Visits Re quested Visits Authorized [id number] Closed 05/08/2024 11/07/2025 1 1 Reason for Visit * Outpatient (Routine) - Closed Specialty Diagnoses / Procedures Referred By Misa dinero Referred To Contact Social Work Diagnoses Malignant Neoplasm Of Brain (HCC) Mica Gonzalez M.D. [address] [place] [address] [facility] Referral ID Status Reason Start Date Expiration Date Visits Re quested Visits Authorized [id number] Closed 05/08/2024 11/07/2025 1 1 Encounter Details Date Type Department Care Team (Latest Contact Info) Description 05/28/2024 8:50 AM CDT - 05/28/2024 9:32 AM CDT Hospital Encounter Department of Radiation Oncology in [place], [place] [address] [place] [phone] Mica Gonzalez M.D. [address] [place] [address] Amy Ward M.S.W., L.I.C.S.W. [address] [place] [address] Counseling Phase Of Life Problem (Primary Dx); [...] How often do you attend hindu or hindu serv ices? Patient declined 07/26/2021 [...] medical care, and heating? Patient declined 07/26/2021 [facility] [employer] of Occupat ional Health - Occupational Stress [...] mouth at bedtime. 04/29/2024 miscellaneous medical supply [facility] CPAP machine for home use at pressure: [...] assessment Previous Psychosocial Assessment: No Primary Language: Faroese Person(s) present during interview: Person(s) Present During [...] Income: on disability from work Primary insurance: 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 Introduced Social Work and their role in the outpatient setting. Informed patient and family of Social Work's legal responsibility as a mandated data warehousing manager and what that entails in regards to [...] He is concerned about finances, will send Watkins Hire to him, [employer] and refer him [...] counseling throughout his cancer center journey at [facility] was offered. he was accepting of the [...] Assessment; Education provided about the role of Flue Lining Dipper professionals here at [facility]; Supportive Counseling Regarding the experience of Living [...] documented as of this encounter Care Teams Barber Shop Manager Relationship Specialty Start Date End Date Elsewhere, Pcp PCP - General Family Medicine 09/09/21 documented as of this encounter
--- OUTSIDE RECORDS SUMMARY | 2024-08-20 11:48 | XMS_ITS | Encounter Summary ---
Author Organization [facility] Address [address] [place] [address] Care Team Providers Care Mercury Cracking Tester Name Role Phone Elsewhere, Pcp Primary Care Provider Unavailabl e Reason for Visit * Radiation Therapy (Routine) - Authorized Specialty Diagnoses / Procedures Referred By Misa dinero Referred To Contact Diagnoses Malignant Neoplasm Of Brain (HCC) Procedures Prior Auth Rad Tx MS IMRT COMPLEX MS GUIDANCE FOR LOC RAD TX MS IMRT RADIOTHERAPY PLAN Genesis Aguilar M.D. [address] [place] [phone] [facility] Referral ID Status Reason Start Date Expiration Date V isits Requested Visits Authorized [id number] Authorized 05/15/2024 11/26/2024 30 30 Encounter Details Date Type Department Care Team (Latest Contact Info) Description 06/03/2024 10:00 AM CDT - 06/03/2024 11:59 PM CDT Hospital Encounter Department of Radiation Oncology in [place], [place] [address] [place] [phone] Genesis Aguilar M.D. [address] [place] [phone] Discharge Disposition: Home or Self Care Social [...] How often do you attend sabianism or jew serv ices? Patient declined 07/26/2021 [...] medical care, and heating? Patient declined 07/26/2021 [facility], [...] documented as of this encounter Care Teams Mercury Cracking Tester Relationship Specialty Start Date End Date Elsewhere, Pcp PCP - General Family Medicine 09/09/21 documented as of this encounter
--- OUTSIDE RECORDS SUMMARY | 2024-08-20 11:48 | XMS_ITS | Encounter Summary ---
Author Organization [facility] Address [address] [place] [address] Care Team Providers Care Director Of Intelligence Name Role Phone Elsewhere, Pcp Primary Care Provider Unavailabl e Reason for Referral * Outpatient (Routine) - Authorized Specialty Diagnoses / Procedures Referred By Contac t Referred To Contact Radiation Oncology Genesis Aguilar M.D. [address] [place] [phone] [facility] Region Referral ID Status Reason Start Date Expiration Date V isits Requested Visits Authorized [id number] Authorized 05/23/2024 11/22/2025 5 5 Reason for Visit * Outpatient (Routine) - Authorized Specialty Diagnoses / Procedures Referred By Misa dinero Referred To Contact Radiation Oncology Genesis Aguilar M.D. [address] [place] [phone] [facility] Region Referral ID Status Reason Start Date Expiration Date V isits Requested Visits Authorized [id number] Authorized 05/23/2024 11/22/2025 5 5 Encounter Details Date Type Department Care Team (Latest Contact Info) Description 05/27/2024 9:30 AM CDT - 05/27/2024 9:44 AM CDT Hospital Encounter Department of Radiation Oncology in [place], [place] [address] [place] [phone] Genesis Aguilar M.D. [address] [place] [phone] Jessica Arevalo R.N. [address] [place] [phone] Malignant Neoplasm Of Brain (HCC) (Primary Dx) [...] How often do you attend jainism or taoism serv ices? Patient declined 07/26/2021 [...] medical care, and heating? 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 Patient is now undergoing radiation therapy concurrent with Temodar. The patient reports that he brought blood pressure medication to today's appointment instead of hisAtivan. He is requesting dose of Ativan. Patient confirms that he has not had alcohol today. Patient confirms that he has a yard truck driver today to assist with transportation. Patient [...] documented as of this encounter Care Teams Director Of Intelligence Relationship Specialty Start Date End Date Elsewhere, Pcp PCP - General Family Medicine 09/09/21 documented as of this encounter
--- OUTSIDE RECORDS SUMMARY | 2024-08-20 11:48 | XMS_ITS | Encounter Summary ---
Author Organization [facility] Address [address] [place] [address] Care Team Providers Care Rn Lpn Cna Name Role Phone Elsewhere, Pcp Primary Care Provider Unavailabl e Reason for Referral * Outpatient (Routine) - Authorized Specialty Diagnoses / Procedures Referred By Contac t Referred To Contact Radiation Oncology Genesis Aguilar M.D. [address] [place] [phone] [facility] Region Referral ID Status Reason Start Date Expiration Date V isits Requested Visits Authorized [id number] Authorized 05/23/2024 11/22/2025 5 5 Reason for Visit * Outpatient (Routine) - Authorized Specialty Diagnoses / Procedures Referred By Misa dinero Referred To Contact Radiation Oncology Genesis Aguilar M.D. [address] [place] [phone] [facility] Region Referral ID Status Reason Start Date Expiration Date V isits Requested Visits Authorized [id number] Authorized 05/23/2024 11/22/2025 5 5 Encounter Details Date Type Department Care Team (Latest Contact Info) Description 05/23/2024 11:04 AM CDT - 05/23/2024 2:35 PM CDT Hospital Encounter Department of Radiation Oncology in [place], [place] [address] [place] [phone] Genesis Aguilar M.D. [address] [place] [phone] Reyna Christianson R.N. [address] [place] [phone] Malignant Neoplasm Of Brain (HCC) (Primary Dx) [...] declined 07/26/2021 How often do you attend alevism or orthodoxy serv ices? Patient declined 07/26/2021 Do you belong to any clubs o r organizations such as alevism groups, unions, fraternal or athletic groups, or [...] care, and heating? Patient declined 07/26/2021 [facility] of Occupat ional Health - Occupational Stress [...] mouth at bedtime. 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 Patient verbalized that he would like [...] treatment and that he will need a taxi cab driver for all treatments. Understanding was verbalized. [...] mg documented in this encounter Care Teams Rn Lpn Cna Relationship Specialty Start Date End Date Elsewhere, Pcp PCP - General Family Medicine 09/09/21 documented as of this encounter
--- OUTSIDE RECORDS SUMMARY | 2024-08-20 11:48 | XMS_ITS | Encounter Summary ---
Author Organization [facility] Address [address] [place] [address] Care Team Providers Care Technicians And Trades Workers Name Role Phone Elsewhere, Pcp Primary Care Provider Unavailabl e Reason for Visit * Radiation Therapy (Routine) - Authorized Specialty Diagnoses / Procedures Referred By Misa dinero Referred To Contact Diagnoses Malignant Neoplasm Of Brain (HCC) Procedures Prior Auth Rad Tx [place] IMRT COMPLEX [place] GUIDANCE FOR LOC RAD TX [place] IMRT RADIOTHERAPY PLAN Genesis Aguilar M.D. [address] [place] [phone] [facility] Referral ID Status Reason Start Date Expiration Date V isits Requested Visits Authorized [id number] Authorized 05/15/2024 11/26/2024 30 30 Encounter Details Date Type Department Care Team (Latest Contact Info) Description 05/27/2024 9:45 AM CDT - 05/27/2024 11:59 PM CDT Hospital Encounter Department of Radiation Oncology in [place], [place] [address] [place] [phone] Genesis Aguilar M.D. [address] [place] [phone] Discharge Disposition: Home or Self Care Social [...] declined 07/26/2021 How often do you attend jewish or christianity serv ices? Patient declined 07/26/2021 Do you belong to any clubs o r organizations such as jewish groups, unions, fraternal or athletic groups, or [...] medical care, and heating? Patient declined 07/26/2021 [facility] - Occupational Stress Questionnaire Answer Date [...] mouth at bedtime. 04/29/2024 miscellaneous medical supply [facility] CPAP machine for home use at pressure: [...] documented as of this encounter Care Teams Technicians And Trades Workers Relationship Specialty Start Date End Date Elsewhere, Pcp PCP - General Family Medicine 09/09/21 documented as of this encounter
--- OUTSIDE RECORDS SUMMARY | 2024-08-20 11:48 | XMS_ITS | Encounter Summary ---
Author Organization [facility] Address [address] [place] [address] Care Team Providers Care Internet Network Specialist Name Role Phone Elsewhere, Pcp Primary Care Provider Unavailabl e Reason for Referral * Radiation Therapy (Routine) - Authorized Specialty Diagnoses / Procedures Referred By Misa garcia Referred To Contact Diagnoses Malignant Neoplasm Of Brain (HCC) Procedures Management Visit Genesis Aguilar M.D. [address] [place] [address] [facility] Region Referral ID Status Reason Start Date Expiration Date V isits Requested Visits Authorized [id number] Authorized 05/03/2024 05/03/2025 10 10 Reason for Visit * Radiation Therapy (Routine) - Authorized Specialty Diagnoses / Procedures Referred By Misa garcia Referred To Contact Diagnoses Malignant Neoplasm Of Brain (HCC) Procedures Management Visit Genesis Aguilar M.D. [address] [place] [address] [facility] Region Referral ID Status Reason Start Date Expiration Date V isits Requested Visits Authorized [id number] Authorized 05/03/2024 05/03/2025 10 10 Encounter Details Date Type Department Care Team (Latest Contact Info) Description 06/04/2024 9:54 AM CDT - 06/04/2024 6:14 PM CDT Hospital Encounter Department of Radiation Oncology in [place], [place] [address] [place] [phone] Jeovanny Khalil M.D. [address] [place] [address] Malignant Neoplasm Of Brain (HCC) Social History [...] How often do you attend evangelical or latter-day serv ices? Patient declined 07/26/2021 Do you [...] place to sleep or slept in a fci (including now)? Patient refused 07/26/2021 Nutrition Answer [...] Body Mass Index 34.8 10/08/2021 3:55 PM MECHANICAL PLANNER documented in this encounter Medications at Time [...] mouth at bedtime. 04/29/2024 [facility] for [facility] use at pressure: [...] (cGy) First Treatment Last Treatment Elapsed Days [id number] 2200 6000 05/20/2024 06/04/2024 15 Course [...] ASSESSMENT / PLAN #1 Right temporal glioblastoma (SHORTAGE WORKER who grade 4), IDH negative, MGMT [...] and evening. Patient declined visit with our Public Health Director. We will re check weight next week. [...] Jeovanny Khalil M.D. 06/04/2024 6:13 PM CDT [facility] [address] [place] [address] documented in this encounter Miscellaneous Notes * [...] documented as of this encounter Care Teams Internet Network Specialist Relationship Specialty Start Date End Date Elsewhere, Pcp PCP - General Family Medicine 09/09/21 documented as of this encounter
--- OUTSIDE RECORDS SUMMARY | 2024-08-20 11:48 | XMS_ITS | Encounter Summary ---
Author Organization [facility] Address [address] [place] [address] Care Team Providers Care Live In Caregiver Name Role Phone Elsewhere, Pcp Primary Care Provider Unavailabl e Reason for Visit * Radiation Therapy (Routine) - Authorized Specialty Diagnoses / Procedures Referred By Misa dinero Referred To Contact Diagnoses Malignant Neoplasm Of Brain (HCC) Procedures Prior Auth Rad Tx AR IMRT COMPLEX AR GUIDANCE FOR LOC RAD TX AR IMRT RADIOTHERAPY PLAN Genesis Aguilar M.D. [address] [place] [phone] [facility] Referral ID Status Reason Start Date Expiration Date V isits Requested Visits Authorized [id number] Authorized 05/15/2024 11/26/2024 30 30 Encounter Details Date Type Department Care Team (Latest Contact Info) Description 05/29/2024 9:58 AM CDT - 05/29/2024 11:59 PM CDT Hospital Encounter Department of Radiation Oncology in [place], [place] [address] [place] [phone] Genesis Aguilar M.D. [address] [place] [phone] Discharge Disposition: Home or Self Care Social [...] How often do you attend presybeterian or orthodox serv ices? Patient declined 07/26/2021 [...] care, and heating? Patient declined 07/26/2021 [facility] - Occupational Stress Questionnaire Answer Date [...] mouth at bedtime. 04/29/2024 miscellaneous medical supply [facility] CPAP machine for home use at pressure: [...] documented as of this encounter Care Teams Live In Caregiver Relationship Specialty Start Date End Date Elsewhere, Pcp PCP - General Family Medicine 09/09/21 documented as of this encounter
--- OUTSIDE RECORDS SUMMARY | 2024-08-20 11:48 | XMS_ITS | Encounter Summary ---
Author Organization [facility] Address [address] [place] [address] Care Team Providers Care Back End Architect Name Role Phone Elsewhere, Pcp Primary Care Provider Unavailabl e Reason for Referral * Specialty Diagnoses / Procedures Referred By Misa dinero Referred To Contact Gaby Arrington APRN, C.N.P., D.N.P. [address] [place] [phone] [facility] Referral ID Status Reason Start Date Expiration Date Visits Re quested Visits Authorized Encounter Details Date Type Department Care Team (Latest Contact Info) Description 05/24/2024 9:46 AM CDT - 05/24/2024 2:34 PM CDT Hospital Encounter Department of Radiation Oncology in [place], [place] [address] [place] [phone] Genesis Aguilar M.D. [address] [place] [phone] Jessica Arevalo REndy [address] [place] [phone] Malignant Neoplasm Of Brain (HCC) Discharge [...] How often do you attend mandaen or buddhist serv ices? Patient declined 07/26/2021 Do you [...] medical care, and heating? Patient declined 07/26/2021 [facility] - Occupational [...] Body Mass Index 34.07 10/08/2021 3:55 PM CLINICAL DIETETIC TECHNICIAN documented in this encounter Medications at [...] (HCC) documented in this encounter Care Teams Back End Architect Relationship Specialty Start Date End Date Elsewhere, Pcp PCP - General Family Medicine 09/09/21 documented as of this encounter
--- OUTSIDE RECORDS SUMMARY | 2024-08-20 11:49 | XMS_ITS | Encounter Summary ---
Author Organization [facility] Address [address] [place] [address] Care Team Providers Care Sr Account Executive Name Role Phone Elsewhere, Pcp Primary Care Provider Unavailabl e Reason for Visit * Radiation Therapy (Routine) - Authorized Specialty Diagnoses / Procedures Referred By Misa dinero Referred To Contact Diagnoses Malignant Neoplasm Of Brain (HCC) Procedures Prior Auth Rad Tx [place] IMRT COMPLEX [place] GUIDANCE FOR LOC RAD TX [place] IMRT RADIOTHERAPY PLAN Genesis Aguilar M.D. [address] [place] [phone] [facility] Referral ID Status Reason Start Date Expiration Date V isits Requested Visits Authorized [id number] Authorized 05/15/2024 11/26/2024 30 30 Encounter Details Date Type Department Care Team (Latest Contact Info) Description 05/20/2024 10:00 AM CDT - 05/20/2024 11:59 PM CDT Hospital Encounter Department of Radiation Oncology in [place], [place] [address] [place] [phone] Genesis Aguilar M.D. [address] [place] [phone] Discharge Disposition: Home or Self Care Social [...] How often do you attend yazdanism or shinto serv ices? Patient declined 07/26/2021 [...] heating? Patient declined 07/26/2021 [facility] - [...] mouth at bedtime. 04/29/2024 miscellaneous medical supply [facility] CPAP machine for [...] oxyCODONE (ROXICODONE) 5 mg immediate release tabletIndications:Ac [place] Pain Take 1 tablet (5 mg total) [...] on filedocumented in this encounter Care Teams Sr Account Executive Relationship Specialty Start Date End Date Elsewhere, Pcp PCP - General Family Medicine 09/09/21 documented as of this encounter
--- OUTSIDE RECORDS SUMMARY | 2024-08-20 11:49 | XMS_ITS | Encounter Summary ---
Author Organization [facility] Address [address] [place] [address] Care Team Providers Care Adventure Guide Name Role Phone Elsewhere, Pcp Primary Care Provider Unavailabl e Reason for Visit * Radiation Therapy (Routine) - Authorized Specialty Diagnoses / Procedures Referred By Misa dinero Referred To Contact Diagnoses Malignant Neoplasm Of Brain (HCC) Procedures Prior Auth Rad Tx [place] IMRT COMPLEX [place] GUIDANCE FOR LOC RAD TX [place] IMRT RADIOTHERAPY PLAN Genesis Aguilar M.D. [address] [place] [phone] [facility] Referral ID Status Reason Start Date Expiration Date V isits Requested Visits Authorized [id number] Authorized 05/15/2024 11/26/2024 30 30 Encounter Details Date Type Department Care Team (Latest Contact Info) Description 05/23/2024 9:51 AM CDT - 05/23/2024 11:03 AM CDT Hospital Encounter Department of Radiation Oncology in [place], [place] [address] [place] [phone] Genesis Aguilar M.D. [address] [place] [phone] Discharge Disposition: Home or Self Care Social [...] declined 07/26/2021 How often do you attend rastafarian or mu-ism serv ices? Patient declined 07/26/2021 Do you belong to any clubs o r organizations such as rastafarian groups, unions, fraternal or athletic groups, or [...] Patient declined 07/26/2021 [facility] - Occupational Stress Questionnaire Answer Date [...] place to sleep or slept in a jail (including now)? Patient refused 07/26/2021 Nutrition Answer [...] on filedocumented in this encounter Care Teams Adventure Guide Relationship Specialty Start Date End Date Elsewhere, Pcp PCP - General Family Medicine 09/09/21 documented as of this encounter
--- OUTSIDE RECORDS SUMMARY | 2024-08-20 11:49 | XMS_ITS | Encounter Summary ---
Author Organization [facility] Address [address] [place] [address] Care Team Providers Care Gas Pump Attendant Name Role Phone Elsewhere, Pcp Primary Care Provider Unavailabl e Reason for Visit * Radiation Therapy (Routine) - Authorized Specialty Diagnoses / Procedures Referred By Misa dinero Referred To Contact Diagnoses Malignant Neoplasm Of Brain (HCC) Procedures Prior Auth Rad Tx AL IMRT COMPLEX AL GUIDANCE FOR LOC RAD TX AL IMRT RADIOTHERAPY PLAN Genesis Aguilar M.D. [address] [place] [phone] [facility] Referral ID Status Reason Start Date Expiration Date V isits Requested Visits Authorized [id number] Authorized 05/15/2024 11/26/2024 30 30 Encounter Details Date Type Department Care Team (Latest Contact Info) Description 05/21/2024 2:34 PM CDT Hospital Encounter Department of Radiation Oncology in [place], [place] [address] [place] [phone] Genesis Aguilar M.D. [address] [place] [phone] Discharge Disposition: Home or Self Care Social [...] How often do you attend bahai or quaker serv ices? Patient declined 07/26/2021 Do you [...] medical care, and heating? Patient declined 07/26/2021 [facility] - Occupational [...] mouth at bedtime. 04/29/2024 miscellaneous medical supply [facility] CPAP machine for home use [...] oxyCODONE (ROXICODONE) 5 mg immediate release tabletIndications:Ac [place] Pain Take 1 tablet (5 mg total) [...] on filedocumented in this encounter Care Teams Gas Pump Attendant Relationship Specialty Start Date End Date Elsewhere, Pcp PCP - General Family Medicine 09/09/21 documented as of this encounter
--- OUTSIDE RECORDS SUMMARY | 2024-08-20 11:49 | XMS_ITS | Encounter Summary ---
Author Organization [facility] Address [address] [place] [address] Care Team Providers Care Surgical Clinical Reviewer Name Role Phone Elsewhere, Pcp Primary Care Provider Unavailabl e Reason for Referral * Radiation Therapy (Routine) - Authorized Specialty Diagnoses / Procedures Referred By Misa garcia Referred To Contact Diagnoses Malignant Neoplasm Of Brain (HCC) Procedures Management Visit Genesis Aguilar M.D. [address] [place] [address] [facility] Region Referral ID Status Reason Start Date Expiration Date V isits Requested Visits Authorized [id number] Authorized 05/03/2024 05/03/2025 10 10 Reason for Visit * Radiation Therapy (Routine) - Authorized Specialty Diagnoses / Procedures Referred By Misa garcia Referred To Contact Diagnoses Malignant Neoplasm Of Brain (HCC) Procedures Management Visit Genesis Aguilar M.D. [address] [place] [address] [facility] Region Referral ID Status Reason Start Date Expiration Date V isits Requested Visits Authorized [id number] Authorized 05/03/2024 05/03/2025 10 10 Encounter Details Date Type Department Care Team (Latest Contact Info) Description 05/21/2024 2:35 PM CDT - 05/21/2024 4:59 PM CDT Hospital Encounter Department of Radiation Oncology in [place], [place] [address] [place] [phone] Genesis Aguilar M.D. [address] [place] [address] Malignant Neoplasm Of Brain (HCC) Social History [...] How often do you attend zoroastrianism or jew serv ices? Patient declined 07/26/2021 [...] Patient declined 07/26/2021 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 Patient is now undergoing radiation therapy concurrent with Temodar. 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
--- OUTSIDE RECORDS SUMMARY | 2024-08-20 11:49 | XMS_ITS | Encounter Summary ---
Author Organization [facility] Address [address] [place] [address] Care Team Providers Care Business Intelligence Developer Name Role Phone Elsewhere, Pcp Primary Care Provider Unavailabl e Reason for Visit * Radiation Therapy (Routine) - Authorized Specialty Diagnoses / Procedures Referred By Misa dinero Referred To Contact Diagnoses Malignant Neoplasm Of Brain (HCC) Procedures Prior Auth Rad Tx [place] IMRT COMPLEX [place] GUIDANCE FOR LOC RAD TX [place] IMRT RADIOTHERAPY PLAN Genesis Aguilar M.D. [address] [place] [phone] [facility] Referral ID Status Reason Start Date Expiration Date V isits Requested Visits Authorized [id number] Authorized 05/15/2024 11/26/2024 30 30 Encounter Details Date Type Department Care Team (Latest Contact Info) Description 05/22/2024 9:53 AM CDT - 05/22/2024 11:59 PM CDT Hospital Encounter Department of Radiation Oncology in [place], [place] [address] [place] [phone] Genesis Aguilar M.D. [address] [place] [phone] Discharge Disposition: Home or Self Care Social [...] declined 07/26/2021 How often do you attend cheondoism or yarsani serv ices? Patient declined 07/26/2021 Do you belong to any clubs o r organizations such as cheondoism groups, unions, fraternal or athletic groups, or [...] 07/26/2021 [facility] - Occupational Stress Questionnaire Answer Date [...] 04/29/2024 [facility] [...] on filedocumented in this encounter Care Teams Business Intelligence Developer Relationship Specialty Start Date End Date Elsewhere, Pcp PCP - General Family Medicine 09/09/21 documented as of this encounter
--- OUTSIDE RECORDS SUMMARY | 2024-08-20 11:49 | XMS_ITS | Clinical Summary ---
Author Organization [employer] [facility] Address [place], [place] [address] Care Team Providers Care Railroad Car Repair Supervisor Name Role Phone Rodrigo Hughes MD Primary Care Provider [phone] Trini Pearson RN Unavailable AlekseyMarlenia DO Unavailable [phone] Jacobo Flores NP Unavailable [phone] [...] Encounters Date Type Department Care Team Description 08/20/2024 Telephone [facility] [address] [place] [phone] Shannon Ryder DO Oncology Nurse Navigation 08/14/2024 Telephone [facility] [phone] Deonna Iverson Care Guide 08/14/2024 Telephone [facility] [address] [place] [address] Shannon Ryder DO Oncology Nurse Navigation 08/09/2024 10:00 AM CDT Office Visit [facility] [address] [facility] [address] [place] [phone] Maggy Gerardo MD Headache 08/09/2024 Travel 08/08/2024 Telephone [facility] [address] [facility] [address] [place] [address] Shannon Ryder DO Oncology Nurse Navigation 08/02/2024 Orders Only [facility] [address] [place] [address] Shannon Ryder DO <No scans attached> 08/02/2024 Refill [facility] [address] [place] [address] Shannon Ryder DO Refill Request 08/01/2024 Telephone [facility] [address] [place] [address] Shannon Ryder DO Oncology Nurse Navigation ([facility] ) 07/30/2024 Telephone [facility] [address] [place] [address] Shannon Ryder DO Oncology Nurse Navigation 07/26/2024 10:45 AM CDT Office Visit [facility] [address] [place] [address] Shannon Ryder DO Follow Up 07/26/2024 7:57 AM CDT - 07/26/2024 11:59 PM CDT Hospital Encounter [facility] [address] [place] [address] Shannon Ryder DO Glioblastoma (HC); Acute intractable headache, unspecified headache type; Cellulitis of right leg 07/26/2024 Telephone [facility] [address] [place] [address] Pretty Thorne MD 07/26/2024 Travel 07/22/2024 Telephone [facility] [address] [place] [address] Shannon Ryder DO Oncology Nurse Navigation 07/22/2024 Telephone [facility] [phone] Deonna Iverson 07/18/2024 Telephone [facility] [address] [place] [phone] Jacobo Flores NP Oncology Nurse Navigation (Labs) 07/16/2024 Orders Only [facility] Staff, Other Clinical 1 scan: (1-Ord) [facility] 07/11/2024 Telephone [facility] [address] [place] [address] Shannon Ryder DO Oncology Nurse Navigation 07/09/2024 Telephone [facility] [address] [place] [address] Shannon Ryder DO Oncology Nurse Navigation 07/03/2024 11:45 AM CDT Office Visit [facility] [address] [place] [address] Shannon Ryder DO Follow Up 07/03/2024 8:30 AM CDT Home Visit [facility] [phone] Deonna Iverson Care Guide (Visit) 07/03/2024 6:42 AM CDT - 07/03/2024 11:59 PM CDT Hospital Encounter [facility] [address] [place] [address] Shannon Ryder DO Glioblastoma (HC) 07/03/2024 Refill [facility] [address] [place] [phone] Shannon Ryder DO Refill Request 07/03/2024 Travel 06/28/2024 Telephone [facility] [address] [place] [phone] 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, appliance adjuster Nurse Navigation 06/27/2024 Telephone [facility] [address] [place] [phone] Jacobo Flores, CHUCK Oncology Nurse Navigation 06/25/2024 Telephone [facility] [address] [facility] [address] [place] [phone] Lydia Curtis, [facility] Social Work Contact 06/21/2024 Telephone [facility] [address] [place] [phone] Jacobo Flores NP Oncology Nurse Navigation 06/20/2024 Telephone [facility] [address] [facility] [address] [place] [phone] Jacobo Flores, CHUCK Oncology Nurse Navigation 06/10/2024 1:00 PM CDT Office Visit [facility] [address] [facility] [address] [place] [phone] Jacobo Flores NP Follow Up (pressure headaches ) 06/10/2024 Telephone [facility] [address] [place] [address] Jacobo Flores NP Oncology Nurse Navigation 06/10/2024 Travel 06/09/2024 Telephone [facility] [address] [place] [phone] Sonu Brown MD Headache 06/04/2024 Telephone [facility] [address] [place] [phone] Shannon Ryder DO Oncology Nurse Navigation 05/27/2024 Telephone [facility] [address] [place] [address] Shannon Ryder DO Medication Management 05/27/2024 Telephone [facility] [address] [place] [address] Pretty Thorne MD Prior Authorization (glycopyrronium tosylate (Qbrexza) 2.4 % towl EXCLUDED) 05/21/2024 11:15 AM CDT Office Visit [facility] [address] [place] [address] Pretty Thorne MD Follow Up 05/21/2024 Travel 05/21/2024 Telephone [facility] [address] [facility] [address] [place] [phone] Trini Pearson RN 05/20/2024 Telephone [facility] [address] [place] [phone] Shannon Ryder DO from Last 3 Months Immunizations Name Administration [...] Description 09/06/2024 10:30 AM CDT Office Visit [facility] [address] [place] [phone] Maggy Gerardo MD [address] [place] [address] 09/23/2024 8:00 AM CDT Appointment [facility] [address] [place] [address] 09/23/2024 9:45 AM CDT Office Visit [facility] [address] [place] [address] Shannon Ryder DO [address] [place] [address] Health Maintenance Due Date Last Done Comments [...] Completed 05/21/2012 Medical Devices Implanted Type Area Staff Readiness Officer Device Identifier Shelf Expiration Date Model / Serial / Lot Dura Neuro 3x3in Duragen Plusnon-Sut - [id number] Implanted:Qty: 1 on 04/19/2024 by Gerardo Her MD at [facility] Right: Cranium [employer] 01/24/2027 DP-1033 / / [id number] Screw Neuro 4mm Matrixneuro Slf Drill Titnm - [id number] Implanted:Qty: 12 on 04/19/2024 by Gerardo Her MD at [facility] Right: Cranium J [employer] J Depuy CMF [id number] 4.01 / / Enrike Hole Cover Neuro 17mm Synthes Low Pro Titnm - [id number] Implanted:Qty: 3 on 04/19/2024 by Gerardo Her MD at [facility] Right: Cranium [employer] CMF [id number] / / Procedures Procedure Name Priority Date/Time Associated Diagnosis Comments SCAN CORRESP-LABORATORY RESULTS 08/15/2024 2:24 PM CDT SCAN CORRESP-LABORATORY RESULTS 08/13/2024 11:11 AM CDT [...] SCAN CORRESP-LABORATORY RESULTS 06/03/2024 1:24 PM CDT LIPID PANEL W REFLEX MEASURED LDL Routine 02/11/2014 8:12 AM CDT Hypertriglyceridemi a from Last 3 Months or Most Recently Relevant to Health Maintenance Results * SCAN CORRESP-LABORATORY RESULTS (08/15/2024 2:24 PM CDT) Only the most recent of10 resultswithin the time period is included. Narrative 08/15/2024 2:24 PM CDT Ordered by an unspecified provider. Other Clinical Staff OTHER * TOXOPLASMA GONDII PCR BLOOD OR CSF (07/26/2024 12:56 PM CDT) Pathologist [facility] TOXOPLASMA GONDII PCR Negative Negative 08/04/2024 10:06 PM CDT [facility] ([facility]) Comment: No Toxoplasma gondii DNA detected. This test was developed and its performance characteristics determined by [employer]. It has not been cleared or approved by the U.S. Food and Drug Administration. The FDA has determined that such clearance or approval is not necessary. This test is used for clinical purposes. It should not be regarded as investigational or research. Other BLOOD SPECIMEN / Unknown Venipuncture / Unknown 07/26/2024 12:56 PM CDT 07/26/2024 1:02 PM CDT Narrative [facility] ([facility]) - 08/04/2024 10:06 PM CDT Performed at: ??[address] ??[id number] Wrecking Crane Engine Operator: Fauzia Harmon MD, Phone: ??[phone] Shannon Ryder DO SEND OUTS [facility] ([facility]) [address] [place] [address] * (ABNORMAL) CBC WITH AUTO DIFFERENTIAL (07/26/2024 12:56 PM CDT) Pathologist [facility] WHITE BLOOD COUNT 6.6 4.5 - 11.0 thou/cu mm 07/26/2024 1:13 PM CDT [facility] RED BLOOD COUNT 3.59(L) 4.30 - 5.90 mil/cu mm 07/26/2024 1:13 PM CDT [facility] HEMOGLOBIN 13.3(L) 13.5 - 17.5 g/dL 07/26/2024 1:13 PM CDT [facility] HEMATOCRIT 37.2 37.0 - 53.0 % 07/26/2024 1:13 PM CDT [facility] MCV 104(H) 80 - 100 fL 07/26/2024 1:13 PM CDT [facility] MCH 37.0(H) 26.0 - 34.0 pg 07/26/2024 1:13 PM CDT [facility] MCHC 35.8 32.0 - 36.0 g/dL 07/26/2024 1:13 PM CDT [facility] RDW 13.9 11.5 - 15.5 % 07/26/2024 1:13 PM CDT [facility] PLATELET COUNT 156 140 - 440 thou/cu mm 07/26/2024 1:13 PM CDT [facility] MPV 8.1 6.5 - 11.0 fL 07/26/2024 1:13 PM CDT [facility] NRBC 0.3 % 07/26/2024 1:13 PM CDT [facility] ABS NRBC 0.0 thou /cu mm 07/26/2024 1:13 PM CDT [facility] % NEUT 80.2 % 07/26/2024 1:13 PM CDT [facility] % LYMPH 9.4 % 07/26/2024 1:13 PM CDT [facility] % MONO 5.9 % 07/26/2024 1:13 PM CDT [facility] % EOS 0.2 % 07/26/2024 1:13 PM CDT [facility] % BASO 0.2 % 07/26/2024 1:13 PM CDT [facility] % IMMATURE GRAN (METAS,MYELOS,CT OS) 4.1 % 07/26/2024 1:13 PM CDT [facility] ABSOLUTE NEUTROPHILS 5.3 1.7 - 7.0 thou/cu mm 07/26/2024 1:13 PM CDT [facility] ABSOLUTE LYMPHOCYTES 0.6(L) 0.9 - 2.9 thou/cu mm 07/26/2024 1:13 PM CDT [facility] ABSOLUTE MONOCYTES 0.4 <0.9 thou/cu mm 07/26/2024 1:13 PM CDT [facility] ABSOLUTE EOSINOPHILS 0.0 <0.5 thou/cu mm 07/26/2024 1:13 PM CDT [facility] ABSOLUTE BASOPHILS 0.0 <0.3 thou/cu mm 07/26/2024 1:13 PM CDT [facility] ABSOLUTE IMMATURE GRANULOCYTES(MET ,MYELOS,PROS) 0.3(H) <0.3 thou/cu mm 07/26/2024 1:13 PM CDT [facility] Blood BLOOD SPECIMEN / Unknown Venipuncture / Unknown 07/26/2024 12:56 PM CDT 07/26/2024 1:02 PM CDT [facility] - 07/26/2024 1:13 PM CDT This procedure was originally ordered at [facility]. This procedure was originally ordered at [facility]. Shannon Ryder DO HEMATOLOGY [facility] [address] [place] [address], * (ABNORMAL) COMP METABOLIC PANEL (07/26/2024 12:56 PM CDT) SODIUM 137 136 - 145 mmol/L 07/26/2024 1:44 PM CDT [facility] POTASSIUM 4.4 3.5 - 5.1 mmol/L 07/26/2024 1:44 PM CDT [facility] CHLORIDE 100 98 - 107 mmol/L 07/26/2024 1:44 PM CDT [facility] CO2,TOTAL 22 22 - 29 mmol/L 07/26/2024 1:44 PM T [facility] ANION GAP 15 5 - 18 07/26/2024 1:44 PM T [facility] GLUCOSE 110(H) 70 - 99 mg/dL 07/26/2024 1:44 PM T [facility] CALCIUM 9.5 8.6 - 10.0 mg/dL 07/26/2024 1:[address] [facility] BUN 25(H) 6 - 20 mg/dL 07/26/2024 1:[address] [facility] CREATININE 0.70 0.70 - 1.20 mg/dL 07/26/2024 1:[address] [facility] BUN/CREAT RATIO 36(H) 10 - 20 1:[address] [facility] eGFR >90 >90 mL/min/1.7 3m2 07/26/2024 1:[address] [facility] Comment:As of 2022, eG FR is calculated by the CKD-EPI creatinine equation without race adjustment. ??eGFR can be influenced by muscle mass, exercise, and diet. ??The reported eGFR is an estimation only and is only applicable if the renal function is stable. ALBUMIN 4.2 4.0 - 4.9 g/dL 07/26/2024 1:44 PM T [facility] PROTEIN,TOTAL 6.8 6.0 - 8.0 g/dL 07/26/2024 1:[address] [facility] BILIRUBIN,TOTAL 0.3 0.0 - 1.2 mg/dL 07/26/2024 1:[address] [facility] ALK PHOSPHATASE 64 40 - 129 IU/L 07/26/2024 1:[address] [facility] ALT (SGPT) 25 10 - 50 IU/L 07/26/2024 1:[address] [facility] AST (SGOT) 21 10 - 50 IU/L 07/26/2024 1:44 PM CDT [facility] Blood BLOOD SPECIMEN / Unknown Venipuncture / Unknown 07/26/2024 12:56 PM CDT 07/26/2024 1:03 PM CDT Shannon Ryder DO CHEMISTRY [facility] [address] [place] [address], * MR HEAD BRAIN VENOGRAM WWO (07/26/2024 [...] and following intravenous contrast. MRV head: T1, itmy-ag-iqgsug, T1 post-contrast MRV images of the head. [...] to 1.4 cm (series 6 image 67). Hnpgp-tj-jnmgfjnb FLAIR hyperintensity within the anterior right temporal [...] to and followingintravenous contrast. MRV head: T1, oxsg-cc-wqclli, T1 post-contrast MRV images of the head. [...] to 1.4 cm (series 6 image 67). Mmncn-bj-qfotvzjj FLAIR hyperintensity within the anterior right temporallobe, [...] and following intravenous contrast. MRV head: T1, vntz-ov-ablwoj, T1 post-contrast MRV images of the head. [...] to 1.4 cm (series 6 image 67). Djswy-bl-qazhupco FLAIR hyperintensity within the anterior right temporal [...] to and followingintravenous contrast. MRV head: T1, rmio-pf-kzfwye, T1 post-contrast MRV images of the head. [...] to 1.4 cm (series 6 image 67). Jawgx-gb-iszheqpj FLAIR hyperintensity within the anterior right temporallobe, [...] CHOLESTEROL,TOTA L 257(H) 100 - 199 mg/dL [facility] TRIGLYCERIDES 514(H) <150 mg/dL [facility] HDL CHOLESTEROL 54 >40 mg/dL [facility] CHOL/HDL RATIO 4.76(H) <4.50 [facility] NON-HDL CHOLESTEROL 203 Undefined mg/dL [facility] LDL CHOLESTEROL ?? Invalid LDL when Trig >400 reflexed to measured LDL. [facility] PATIENT STATUS Fasting [facility] Blood specimen (specimen) BLOOD SPECIMEN / Unknown 02/11/2014 8:12 AM CDT 02/11/2014 8:06 AM CDT Anali Bailey MD CHEMISTRY [facility] [place] ZIP [id number] [place] [address] from Last 3 Months or Most Recently Relevant to Health Maintenance Additional Health Concerns Infection Onset Date Last Indicated MRSA Comment:Order Contact Precaution Nares surveillance cultures needed to clear patient if <12 months since positive culture. If >12 months since positive culture, precautions can be discontinued if patient has no MRSA risk factors. 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 @ [facility], 07/22/19 @ [facility], Soft tissue infection of right stump 10/2017 exclusions for contact precaution discontinuation (if > 12 months since positive culture): resides in acute/custodial care, receiving hemodialysis, has chronic open wounds/skin damage, has long-term percutaneous indwelling medical devices Exclusions for nares collection (if <12 months since positive culture) include all of the previous exclusions plus patients on antibiotics 7 days prior to collection 11/28/2017 11/28/2017 Advance Directives Documents on File Type Date Recorded Patient Casino Cage Manager Expl anation Healthcare Directive 04/25/2024 INVALID , MISSING PAGE, 04/25/2024 * Full Code (Latest Code Status on File) Date Activated Date Inactivated Comments 04/17/2024 8:30 AM 04/29/2024 4:53 PM Question Answer Comments Code Status Discussion: Reviewed Preferences * Full Code Date Activated Date Inactivated Comments 12/22/2016 11:17 PM 12/24/2016 8:25 PM Question Answer Comments Code Status Discussion: Per Existing Order Care Teams Railroad Car Repair Supervisor Relationship Specialty Start Date End Date Rodrigo Hughes MD [address] [place] [address] PCP - General Family Practice 05/01/24 Trini Pearson, RN [address] [facility] [address] [place] [address] Nurse Navigator - Oncology Registered Nurse 05/01/24 Shannon Ryder DO [address] [facility] [address] [place] [address] Neurooncology Neurology 05/01/24 Jacobo Flores NP [address] [facility] [address] [place] [address] Neurooncology Nurse Practitioner - Family 05/01/24
--- NOTE | 2024-08-20 12:49 | ED.WOUNDLAC ---
HPI - Wound/Laceration General Date Seen: 08/20/24 Chief Complaint: Laceration/Wound Stated Complaint: Elbow sutures ripped out Time Seen by Provider: 08/20/24 11:17 Source: patient Mode of arrival: ambulatory Limitations: no limitations History of Present Illness HPI narrative: Patient is a 49-year-old male with a history of MRSA, presenting to emergency department for his stitches falling out. Four days ago he had a septic or could known bursitis that was removed. He was discharged from the hospital 3 days ago. Was doing well but then noted this morning that when he looked at the oval all the stitches seemed to have fallen out. Has not noticed any purulent drainage. There is tenderness around the incision site. Denies fevers, chills, weakness. No other concerns noted. Related Data Home Medications ?Medication ?Instructions ?Recorded ?Confirmed ibuprofen 200 mg tablet (Advil) 400 mg PO .4-6X/DAY PRN 04/15/24 08/14/24 aluminum chloride 20 % topical 1 applic topical QHS 08/14/24 08/14/24 solution clotrimazole-betamethasone 1 1 applic topical BID PRN 08/14/24 08/14/24 %-0.05 % topical cream dexamethasone 2 mg tablet 1 mg PO DAILY 08/14/24 08/14/24 famotidine 20 mg tablet 20 mg PO DAILY 08/14/24 08/14/24 levetiracetam 500 mg tablet 500 mg PO BID 08/14/24 08/14/24 loratadine-pseudoephedrine ER 10 1 tab PO DAILY PRN 08/14/24 08/14/24 mg-240 mg tablet,extended [id number] (Claritin-D 24 Hour) sildenafil (pulm.hypertension) 20 20 mg PO DAILY 08/14/24 08/14/24 mg tablet temozolomide 100 mg capsule 200 mg PO . DIREC 08/14/24 08/14/24 temozolomide 140 mg capsule 140 mg PO DIRECTED 08/14/24 08/14/24 topiramate 25 mg tablet 25 - 50 mg PO BID 08/14/24 08/14/24 Previous Rx's ?Medication ?Instructions ?Recorded gabapentin 300 mg capsule 900 - 1,200 mg (3 - 4 x 300 mg) PO 04/05/24 TID #900 caps losartan 100 mg tablet 100 mg PO QDAY #90 tabs 05/06/24 fluoxetine 40 mg capsule 40 mg PO QDAY #90 caps 05/21/24 naltrexone 50 mg tablet 50 mg PO QDAY #90 tabs 05/24/24 oxycodone 5 mg tablet 5 mg PO Q4H PRN pain #20 tabs 08/17/24 sulfamethoxazole 800 1 tab PO Q12H 7 days #14 tabs 08/17/24 mg-trimethoprim 160 mg tablet sulfamethoxazole 800 1 tab PO Q12H 7 days #14 tabs 08/17/24 mg-trimethoprim 160 mg tablet (Bactrim DS) Allergies Allergy/AdvReac Type Severity Reaction Status Date / Time No Known Drug Allergies Allergy Verified 08/14/24 11:47 Review of Systems Narrative: Pertinent systems reviewed and were negative unless stated in HPI PFSH PFSH Medical History Tobacco use ?Z72.0 - Tobacco use (ICD-10) Immunocompromised ?D84.9 - Immunodeficiency, unspecified (ICD-10) Alcohol abuse ?F10.10 - Alcohol abuse, uncomplicated (ICD-10) Family history of colon cancer ?Z80.0 - Family history of malignant neoplasm of digestive organs (ICD-10) Erectile dysfunction ?N52.9 - Male erectile dysfunction, unspecified (ICD-10) Drug dependence ?F19.20 - Other psychoactive substance dependence, uncomplicated (ICD-10) Elevated liver enzymes ?R74.8 - Abnormal levels of other serum enzymes (ICD-10) Seasonal allergies ?J30.2 - Other seasonal allergic rhinitis (ICD-10) Adenomatous polyp of colon ?D12.6 - Benign neoplasm of colon, unspecified (ICD-10) Depression ?F32.A - Depression, unspecified (ICD-10) Anxiety ?F41.9 - Anxiety disorder, unspecified (ICD-10) Peripheral neuropathy ?G62.9 - Polyneuropathy, unspecified (ICD-10) Low back pain potentially associated with radiculopathy ?M54.50 - Low back pain, unspecified (ICD-10) Sleep apnea ?G47.30 - Sleep apnea, unspecified (ICD-10) Hypertension ?I10 - Essential (primary) hypertension (ICD-10) Hyperlipidemia ?E78.5 - Hyperlipidemia, unspecified (ICD-10) Fatty liver ?K76.0 - Fatty (change of) liver, not elsewhere classified (ICD-10) Balance problems ?R26.89 - Other abnormalities of gait and mobility (ICD-10) Glioblastoma of parietal lobe ?C71.3 - Malignant neoplasm of parietal lobe (ICD-10) Obesity (BMI 30-39.9) ?E66.9 - Obesity, unspecified (ICD-10) Surgical History H/O lower limb amputation ?Z89.619 - Acquired absence of unspecified leg above knee (ICD-10) S/P craniotomy ?Z98.890 - Other specified postprocedural states (ICD-10) Status post above-knee amputation of right lower extremity ?Z89.611 - Acquired absence of right leg above knee (ICD-10) History of oral surgery (05/21/12) ?Z98.890 - Other specified postprocedural states (ICD-10) Social History What is your current living situation?: I presently have a place to live Problems where you live: no known problems Problems where you live details: N/A In the past 12 months, utilities in danger of being shut off: no In past 12 months, lack of transportation kept you from medical appts, meetings, work, or getting things needed for daily living: no In the past 12 mos, have been you worried that your food would run out before you had money to buy more?: never true In the past 12 mos, the food you bought just didn't last and you didn't have money to buy more?: never true Highest level of school completed/degree received: high school graduate Smoking Status: Never smoker How often do you have a drink containing alcohol: never AUDIT-C Alcohol total score: 0 Non-prescribed substance use: denies use How often does anyone, including family, friends and others, physically hurt you: never How often does anyone, including family, friends and others, insult or talk down to you: never How often does anyone, including family, friends and others, threaten you with harm: never How often does anyone, including family, friends and others, scream or curse at you: never Little interest or pleasure in doing things: not at all Feeling down, depressed, or hopeless: not at all service: No Exam Narrative: Exam Narrative: Const: Well-nourished, Well-developed, in no distress Eyes: PERRL, no conjunctival injection, and symmetrical lids HENT: Atraumatic external nose and ears. Moist mucous membranes. MSK:Extremities w/o deformity, Normal Active ROM Skin: Surgical incision to left elbow that has opened up with the sutures all pulling out on 1 side of the incision site. Serosanguineous discharge. Mild erythema around the incision site Neuro: Normal Muscle tone, No focal neurological deficits. Psych: Awake, Alert, & Oriented x3. Appropriate mood and affect. Const: Vital Signs, click to edit/add: Vital Signs - 24 hr 08/20/24 11:22 Temperature 97.4 F L Pulse Rate [Pulse Oximeter] 87 Respiratory Rate 18 Blood Pressure [Ri ght Upper Arm] 111/70 Pulse Oximetry 94 Oxygen Delivery Me thod Room Air Course Vital Signs Vital signs: Initial Vital Signs Temperature 97.4 F L 08/20/24 11:22 Temperature Source Temporal Artery Scan 08/20/24 11:22 Pulse Rate 87 08/20/24 11:22 Respiratory Rate 18 08/20/24 11:22 Blood Pressure 111/70 08/20/24 11:22 Blood Pressure Mean 83 08/20/24 11:22 Blood Pressure Position Sitting 08/20/24 11:22 Pulse Oximetry 94 08/20/24 11:22 Oxygen Delivery Method Room Air 08/20/24 11:22 Vital Signs Temperature 97.4 F L 08/20/24 11:22 Pulse Rate 87 08/20/24 11:22 Respiratory Rate 18 08/20/24 11:22 Blood Pressure 111/70 08/20/24 11:22 Pulse Oximetry 94 08/20/24 11:22 Oxygen Delivery Method Room Air 08/20/24 11:22 Temperature 97.4 F L 08/20/24 11:22 Pulse Rate 87 08/20/24 11:22 Respiratory Rate 18 08/20/24 11:22 Blood Pressure 111/70 08/20/24 11:22 Pulse Oximetry 94 08/20/24 11:22 Oxygen Delivery Method Room Air 08/20/24 11:22 MDM - Wound/Laceration MDM Narrative Medical decision making narrative: Patient is 49-year-old male presenting for a wound check. The sutures appear to no longer be holding incision site together. No obvious signs of infection. No purulent material. I did speak to the on-call orthopedist Dr. Donis. He came to evaluate the elbow and states they will do surgery on it tomorrow to clean out and so it back up. States the patient can be discharged. No other orders requested at this time other than to place a bulky dressing. Patient is agreeable to this plan. Informed him to be NPO after midnight today. Discharge Plan Discharge Clinical Impression: Visit for wound check Patient Disposition: Home, Self-Care Condition: Stable Instructions: Wound Dehiscence (ED) Additional Instructions: Return to the surgical center tomorrow for a washout and replacing of sutures of your elbow. NPO after midnight tonight. They will call you with scheduling today. Prescriptions: No Action ibuprofen [Advil] 200 mg tablet 400 mg PO .4-6X/DAY PRN losartan 100 mg tablet 100 mg PO QDAY Qty: 90 3RF dexamethasone 2 mg tablet 1 mg PO DAILY famotidine 20 mg tablet 20 mg PO DAILY aluminum chloride 20 % solution 1 applic topical QHS levetiracetam 500 mg tablet 500 mg PO BID loratadine-pseudoephedrine [Claritin-D 24 Hour] 10-240 mg tablet extended release 24 hr 1 tab PO DAILY PRN topiramate 25 mg tablet 25 - 50 mg PO BID Rx Instructions: TAKE 1 TAB TWICE A DAY FOR 7 DAYS, THEN INCREASE TO 2 TABS TWICE A DAY sildenafil (pulm.hypertension) 20 mg tablet 20 mg PO DAILY Rx Instructions: TAKES 1 TAB DAILY TO HELP URINATE AND OCCASIONALLY MORE THROUGHOUT THE DAY temozolomide 100 mg capsule 200 mg PO . DIREC Rx Instructions: must be taken on empty - 340 MG TOTAL - DAILY FOR 5 DAYS, THEN 23 DAYS OFF AND REPEAT temozolomide 140 mg capsule 140 mg PO DIRECTED Rx Instructions: must be taken on empty stomach - 340 MG TOTAL - 5 DAYS ON, 23 DAYS OFF AND REPEAT clotrimazole-betamethasone 1-0.05 % cream 1 applic topical BID PRN sulfamethoxazole-trimethoprim [Bactrim DS] 800-160 mg tablet 1 tab PO Q12H 7 Days Qty: 14 0RF sulfamethoxazole-trimethoprim 800-160 mg tablet 1 tab PO Q12H 7 Days Qty: 14 0RF oxycodone 5 mg tablet 5 mg PO Q4H PRN (Reason: pain) Qty: 20 0RF gabapentin 300 mg capsule 900 - 1,200 mg PO TID Qty: 900 1RF Rx Instructions: 900mg (3 capsules) morning and midday. 1200mg (4 capsules) HS fluoxetine 40 mg capsule 40 mg PO QDAY Qty: 90 1RF naltrexone 50 mg tablet 50 mg PO QDAY Qty: 90 3RF Follow Up/Referrals: Rodrigo Hughes MD [Primary Care Provider] - Stand Alone Forms: [facility] Info Instructions
== END 2024-08-20 13:12 | disposition home or self-care (01) ==
PROVIDERS: Emergency Provider Student in an Organized Health Care Education/Training Program; PCP Family Medicine
DX: Z48.00 Encounter for change or removal of nonsurgical wound dressing (principal)
CPT/HCPCS: 99282; 99283

== ENCOUNTER 2024-08-21 09:41 | Day surgery (SDC) | payer OTHER, SELFPAY ==
[2024-08-21] VITALS (13 sets, daily range): BP systolic 134–165; BP diastolic 79–107; PULSE 70–83; RESP 16–18; TEMP 36–36.9; O2SAT 89–97; BMI 34.8
--- OUTSIDE RECORDS SUMMARY | 2024-08-21 09:47 | XMS_ITS | Data Portability ---
Author Organization [place] [facility] Address [address] [place] [address] Assessment No assessment recorded. Plan of Treatment Reminders Order Date Submit Date Provider Last Modified By Organization Details Last Modified Time Details Appointments ESTABLISH ED 10 2023 09:30A M Not available Not available Not available Lab None recorded. Referral None recorded. Procedures bladder scan (PROC) 2023 024 [email or web address] [facility], [address], [address], [place], [address], 07/30/2024 14:14:58 Surgeries None recorded. Imaging None recorded. Medication Orders solifenac in 10 mg tablet 2023 024 [id number], [address] [place], [place], [phone], 07/30/2024 14:26:01 Patient TargetsNo targets recorded. Patient Instructions Encounter Date Encounter Id Patient Instructions Last Modified By Organization Details Last Modified Time 07/30/2024 [id number] will try solifenacin and rtc 6 weeks. [email or web address] Not available 07/30/2024 14:26:59 Reason for Referral None Reported. Results Created Date Observation Date Name Description Value Unit Range Abnormal Flag Note LastModifiedBy Organization Detail LastModifiedTime 07/30/20 24 07/30/2024 bladd er scan (PROC ) Volume (in mL) 16 ml Not Available [facility] [address], [place], [address], 07/22/2024 14:00:28 Result Notes None recorded. Problems Name Problem SNOMED Code Status Onset Date Resolution Date Notes Provider Name and Address Organization Details Recorded Time Urgent desire to urinate 51080647 Active 2023 Derrick Hodge MD [address] [place] [address],[address], [phone], [facility] 14:25:07 Incontinence 98884154 Active 2023 Derrick Hodge MD [address] [place] [address],[address], [address], [facility] 14:25:08 Problem Notes None recorded. Procedures Surgical History Date Name Laterality Status Provider Name and Address Organization Details Recorded Time Bladder Scan completed Derrick Hodge MD [address] [place] [address],[address] [place] [address], [phone], [facility] 07/30/2024 14:14:27 destruction of brain tumor completed Derrick Hodge MD [address] [place] [address],[address], [place], [address], [facility] 07/30/2024 14:11:23 Imaging Results None [...] Updated DateTime 07/30/2024 180.34 cm 32.8 kg/m2 275359.21 g Derrick Hodge MD [address] [place] [address], [phone] 07/30/2024 14:07:09 Social History Question Answer Notes LastModified by Organizat ion Details LastModified Time Tobacco Smoking Status Never Smoker Derrick Hodge MD [address] [place] [address], [phone] 07/30/2024 14:10:43 What Is Your Level Of Alcohol Consumption? Occasional [email or web address] Information not available 07/30/2024 What Is Your Level Of Caffeine Consumption? Occasional [email or web address] Information not available 07/30/2024 What Was The Date Of Your Most Recent Tobacco Screening? 07/30/2024 [email or web address] Information not available 07/30/2024 Have You Ever Been Counseled For Unhealthy Alcohol Use? No [email or web address] Information not available 07/30/2024 Do You Use Any Illicit Or Recreational Drugs? No [email or web address] Information not available 07/30/2024 Sex: Unknown Functional Status None recorded. Mental Status None recorded. Family History Relationship Description Onset Age of this Age Resolved Age Notes LastModified by Organization Details LastModified Time Father Hernia repair [email or web address] Not available 07/30 14:10:16 Medical History Condition Response Other N High Blood Pressure Y Kidney Stones N Depression Y Sexually Transmitted Infection N Cancer Y Bleeding Disorder N Lung Disease N GERD/Acid Reflux N High Cholesterol N Diabetes N Heart Disease N Past Encounters Encounter ID Performer Location Encounter Start Date Encounter Closed Date Diagnosis/Indication Diagnosis SNOMED-CT Code Diagnosis ICD10 Code [id number] Derrick Hodge MD [facility] [address] [place] [address] 07/30/2024 14:01:11 07/31/2024 10:57:56 Incontinence 64137195 R32 Urgent barbra maeve to urinate [id number] R39.15 Health Concerns Section Related Observation LastModified by Organization Detai ls LastModified Time None Recorded Concern Status LastModified by Organization Details LastModified Time None Recorded Advance Directives Directive None Recorded Payers Encounter Date Sequence Insurance Name Policy Number Policy Acuna Covered Member ID Acuna Member ID Guarantor Name 07/30/2024 1 *SELF PAY* Br indio T Strese Notes Date Note Type Note Provider Name and Address Organization Details Recorded Time 07/30/2024 text/html HPI Notes: seeing for voiding issues 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 was circed at . gained about 30# after the surgery due to steroids. unable to void for UA, bladder scan shows 16ml today. Derrick Hodge MD [address], [place], [address], [facility] 07/30/2024 14:27:20
--- OUTSIDE RECORDS SUMMARY | 2024-08-21 09:47 | XMS_ITS | Clinical Summary ---
Author Organization [facility] Address [address] [place] [address] Care Team Providers Care Steam Gigger Name Role Phone Elsewhere, Pcp Primary Care Provider Unavailabl e Source Comments Patient records contain information from all sites at [facility]. For routine questions regarding patient records, call [phone] during business hours, M-F 8:00 AM - 5:00 PM Central Time. Record requests for emergency care only can be directed to [phone] at any time.[facility] Allergies No known active allergies Medications Medication [...] NOT SWALLOW. 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 Discharge Disposition: Home or Self Care 07/02/2024 Documentation Department of Radiation Oncology in [address] [address] Genesis Aguilar M.D. 07/01/2024 9:43 AM CDT - 07/01/2024 11:59 PM CDT Hospital Encounter Department of Radiation Oncology in [address] [address] Genesis Aguilar M.D. Discharge Disposition: Home or Self Care 06/28/2024 9:48 AM CDT - 06/28/2024 11:59 PM CDT Hospital Encounter Department of Radiation Oncology in [address] [address] Genesis Aguilar M.D. Discharge Disposition: Home or Self Care 06/27/2024 9:28 AM CDT - 06/27/2024 11:59 PM CDT Hospital Encounter Department of Radiation Oncology in [address] [address] Genesis Aguilar M.D. Discharge Disposition: Home or Self Care 06/27/2024 Documentation Department of Oncology in [place], [place] [address] [place] [address] Amy Ward M.S.W., L.I.C.S.W. 06/26/2024 9:34 AM CDT - 06/26/2024 2:36 PM CDT Hospital Encounter Department of Radiation Oncology in [address] [address] Genesis Aguilar M.D. Malignant Neoplasm Of Brain (HCC) 06/26/2024 9:33 AM CDT Hospital Encounter Department of Radiation Oncology in [address] [address] Genesis Aguilar M.D. Discharge Disposition: Home or Self Care 06/25/2024 9:41 AM CDT - 06/25/2024 11:59 PM CDT Hospital Encounter Department of Radiation Oncology in [address] [address] Genesis Aguilar M.D. Discharge Disposition: Home or Self Care 06/24/2024 9:41 AM CDT - 06/24/2024 11:59 PM CDT Hospital Encounter Department of Radiation Oncology in [address] [address] Genesis Aguilar M.D. Discharge Disposition: Home or Self Care 06/21/2024 9:28 AM CDT - 06/21/2024 11:59 PM CDT Hospital Encounter Department of Radiation Oncology in [address] [address] Genesis Aguilar M.D. Discharge Disposition: Home or Self Care 06/20/2024 9:36 AM CDT - 06/20/2024 11:59 PM CDT Hospital Encounter Department of Radiation Oncology in [address] [address] Genesis Aguilar M.D. Discharge Disposition: Home or Self Care 06/19/2024 9:14 AM CDT - 06/19/2024 2:50 PM CDT Hospital Encounter Department of Radiation Oncology in [address] [address] Genesis Aguilar M.D. Malignant Neoplasm Of Brain (HCC) 06/19/2024 9:14 AM CDT - 06/19/2024 11:59 PM CDT Hospital Encounter Department of Radiation Oncology in [address] [address] Genesis Aguialr M.D. Discharge Disposition: Home or Self Care 06/18/2024 9:49 AM CDT - 06/18/2024 11:59 PM CDT Hospital Encounter Department of Radiation Oncology in [address] [address] Genesis Aguilar M.D. Discharge Disposition: Home or Self Care 06/17/2024 9:40 AM CDT - 06/17/2024 11:59 PM CDT Hospital Encounter Department of Radiation Oncology in [address] [address] Genesis Aguilar M.D. Discharge Disposition: Home or Self Care 06/14/2024 9:43 AM CDT - 06/14/2024 11:59 PM CDT Hospital Encounter Department of Radiation Oncology in [address] [address] Genesis Aguilar M.D. Discharge Disposition: Home or Self Care 06/13/2024 9:40 AM CDT - 06/13/2024 11:59 PM CDT Hospital Encounter Department of Radiation Oncology in [address] [address] Genesis Aguilar M.D. Discharge Disposition: Home or Self Care 06/12/2024 9:44 AM CDT - 06/12/2024 12:55 PM CDT Hospital Encounter Department of Radiation Oncology in [address] [address] Genesis Aguilar M.D. Malignant Neoplasm Of Brain (HCC) 06/12/2024 9:44 AM CDT - 06/12/2024 11:59 PM CDT Hospital Encounter Department of Radiation Oncology in [address] [address] Genesis Aguilar M.D. Discharge Disposition: Home or Self Care 06/11/2024 9:47 AM CDT - 06/11/2024 11:59 PM CDT Hospital Encounter Department of Radiation Oncology in [address] [address] Genesis Aguilar M.D. Discharge Disposition: Home or Self Care 06/11/2024 Clinical Communication Department of Oncology in [place] [address] [place] [address] Amy Ward, M.S.W., L.I.C.S.W. 06/10/2024 10:30 AM CDT - 06/10/2024 11:20 AM CDT Hospital Encounter Department of Radiation Oncology in [address] [address] Genesis Aguilar M.D. Grieman, Kari A, RJudyNJudy Malignant Neoplasm Of Brain (HCC) (Primary Dx) 06/07/2024 9:46 AM CDT - 06/07/2024 11:59 PM CDT Hospital Encounter Department of Radiation Oncology in [address] [address] Genesis Aguilar M.D. Discharge Disposition: Home or Self Care 06/06/2024 9:56 AM CDT - 06/06/2024 11:59 PM CDT Hospital Encounter Department of Radiation Oncology in [address] [address] Genesis Aguilar M.D. Discharge Disposition: Home or Self Care 06/05/2024 9:43 AM CDT - 06/05/2024 11:59 PM CDT Hospital Encounter Department of Radiation Oncology in [address] [address] Genesis Aguilar M.D. Discharge Disposition: Home or Self Care 06/04/2024 9:54 AM CDT - 06/04/2024 6:14 PM CDT Hospital Encounter Department of Radiation Oncology in [address] [address] Jeovanny Khalil M.D. Malignant Neoplasm Of Brain (HCC) 06/04/2024 9:53 AM CDT Hospital Encounter Department of Radiation Oncology in [address] [address] Genesis Aguilar M.D. Discharge Disposition: Home or Self Care 06/03/2024 10:00 AM CDT - 06/03/2024 11:59 PM CDT Hospital Encounter Department of Radiation Oncology in [address] [address] Genesis Aguilar M.D. Discharge Disposition: Home or Self Care 05/31/2024 10:13 AM CDT - 05/31/2024 11:59 PM CDT Hospital Encounter Department of Radiation Oncology in [address] [address] Genesis Aguilar M.D. Discharge Disposition: Home or Self Care 05/29/2024 9:58 AM CDT - 05/29/2024 11:26 AM CDT Hospital Encounter Department of Radiation Oncology in [address] [address] Genesis Aguilar M.D. Malignant Neoplasm Of Brain (HCC) 05/29/2024 9:58 AM CDT - 05/29/2024 11:59 PM CDT Hospital Encounter Department of Radiation Oncology in [address] [address] Genesis Aguilar M.D. Discharge Disposition: Home or Self Care 05/28/2024 9:33 AM CDT - 05/28/2024 11:59 PM CDT Hospital Encounter Department of Radiation Oncology in [address] [address] Genesis Aguilar M.D. Discharge Disposition: Home or Self Care 05/28/2024 8:50 AM CDT - 05/28/2024 9:32 AM CDT Hospital Encounter Department of Radiation Oncology in [address] [address] Mica Gonzalez M.D. Wacholz, Abigail M, M.S.W., L.I.C.S.W. Counseling Phase Of Life Problem (Primary Dx); Malignant Neoplasm Of Brain (HCC) Discharge Disposition: Home or Self Care 05/27/2024 9:45 AM CDT - 05/27/2024 11:59 PM CDT Hospital Encounter Department of Radiation Oncology in [address] [address] Genesis Aguilar M.D. Discharge Disposition: Home or Self Care 05/27/2024 9:30 AM CDT - 05/27/2024 9:44 AM CDT Hospital Encounter Department of Radiation Oncology in [address] [address] Genesis Aguilar M.D. Grieman, Kari A RJudyNJudy Malignant Neoplasm Of Brain (HCC) (Primary Dx) 05/24/2024 9:46 AM CDT - 05/24/2024 2:34 PM CDT Hospital Encounter Department of Radiation Oncology in [address] [address] Genesis Aguilar M.D. Grieman, Kari A R.NJudy Malignant Neoplasm Of Brain (HCC) Discharge Disposition: Home or Self Care 05/24/2024 9:46 AM CDT - 05/24/2024 11:59 PM CDT Hospital Encounter Department of Radiation Oncology in [address] [address] Genesis Aguilar M.D. Discharge Disposition: Home or Self Care 05/23/2024 11:04 AM CDT - 05/23/2024 2:35 PM CDT Hospital Encounter Department of Radiation Oncology in [address] [address] Genesis Aguilar M.D. Retterath, Chelsey A, R.N. Malignant Neoplasm Of Brain (HCC) (Primary Dx) 05/23/2024 9:51 AM CDT - 05/23/2024 11:03 AM CDT Hospital Encounter Department of Radiation Oncology in [address] [address] Genesis Aguilar M.D. Discharge Disposition: Home or Self Care 05/22/2024 9:53 AM CDT - 05/22/2024 11:59 PM CDT Hospital Encounter Department of Radiation Oncology in [address] [address] Genesis Aguilar M.D. Discharge Disposition: Home or Self Care 05/21/2024 2:35 PM CDT - 05/21/2024 4:59 PM CDT Hospital Encounter Department of Radiation Oncology in [address] [place] [address] Genesis Aguilar M.D. Malignant Neoplasm Of Brain (HCC) 05/21/2024 2:34 PM CDT Hospital Encounter Department of Radiation Oncology in [place], [place] [address] [place] [address] Genesis Aguilar M.D. Discharge Disposition: Home or [...] How often do you attend methodist or samaritan serv ices? Patient declined 07/26/2021 Do you [...] medical care, and heating? Patient declined 07/26/2021 [facility] Occupat ional [facility] - Occupational Stress [...] DT Respiratory Rate 18 10/08/2021 4:40 PM EXTRUDER OPERATOR Oxygen Saturation 96% 10/08/2021 4:40 PM EXTRUDER OPERATOR Inhaled Oxygen Concentration - - Weight 115 kg (254 lb 10.1 oz) 06/26/2024 10:32 AM CDT Height 177.8 cm (5' 10) 10/08/2021 3:55 PM EXTRUDER OPERATOR Body Mass Index 36.54 10/08/2021 3:55 PM EXTRUDER OPERATOR Plan of Treatment Health Maintenance Due Date [...] this topic Medical Devices Implanted Type Area Ripsawyer Device Identifier Shelf Expiration Date Model / Serial / Lot [facility]p [facility] - [id number] Implanted:Qty : 1 on 09/09/2021 by Sanford Mena M.D. at [facility] Hardware e.g. pins/screws/ rods Right: Leg Ethicon [id number] 05/26/2026 MCS20 / / [id number] Clp [facility] - [id number] Implanted:Qty : 1 on 09/09/2021 by Sanford Mena M.D. at [facility] Hardware e.g. pins/screws/ rods Right: Leg Ethicon [id number] 05/26/2026 MSM20 / / [id number] Explanted Type Area Ripsawyer Device Identifier Shelf Expiration Date Model / Serial / Lot Cmnt Bn Hi Visc Pmma 40 - [id number] Implanted:Qty: 1 on 11/15/2019 by Maude Shah M.D. at [facility] Explanted:Qty: 1 on 12/03/2019 by Sanford Mena M.D. at [facility] Bone Cement Right: Femur [place] [id number] 6191-1-00 / Description:7 antibiotic juaquin ent beads [...] TREATMENT INFORMATION Routine 05/21/2024 3:00 PM CDT CREATININE WITH EGFR, S/P Routine 12/18/2019 9:40 PM EXTRUDER OPERATOR Infection Of Amputation Stump Right Lower Extremity (HCC) BASIC METABOLIC PANEL, S/P Routine 11/19/2019 7:46 AM EXTRUDER OPERATOR from Last 3 Months or Most Recently Relevant to Health Maintenance Results * Aria Course Complete Treatment Information (07/02/2024 10:08 AM CDT) [facility] Signature Course ID 1xBrain CULLOWHEE ARIA Course Start Date 4 08:57 CDT [facility] Course End Date 4 10:16 CDT [facility] First Treatment Date 4 10:26 CDT [facility] Last Treatment Date 4 10:08 CDT GARSIA ARIA Treatment Elapsed Days 43 GARSIA ARIA Reference Point [id number] GARSIA ARIA Dosage Given to Date cGy 6000 GARSIA ARIA Plan ID [id number] GARSIA ARIA Fractions Treated to Date 30 GARSIA ARIA Planned Total Fractions 30 GARSIA ARIA Prescribed Dose Per Fraction 200 GARSIA ARIA Prescription Dose in cGy 6000 GARSIA ARIA Plan Primary Reference Point [id number] GARSIA ARIA 07/02/2024 10:0 8 AM CDT Provider Not In System RADIATION ONCOLOG Y ORDERABLES GARSIA KITA na * Aria Daily Treatment Information (07/02/2024 10:08 AM CDT) Only the most recent of30 resultswithin the time period is included. Course ID 1xBrain GARSIA ARIA Course Start Date 4 08:57 CDT GARSIA ARIA First Treatment Date 4 10:26 CDT GARSIA ARIA Last Treatment Date 4 10:08 CDT GARSIA ARIA Treatment Elapsed Days 43 GARSIA ARIA Reference Point [id number] GARSIA ARIA Dosage Given to Date cGy 6000 GARSIA ARIA Session Dosage Given 200 GARSIA ARIA Plan ID [id number] GARSIA ARIA Fractions Treated to Date 30 GARSIA ARIA Planned Total Fractions 30 GARSIA ARIA Prescribed Dose Per Fraction 200 GARSIA ARIA Prescription Dose in cGy 6000 GARSIA ARIA Plan Primary Reference Point [id number] GARSIA ARIA 07/02/2024 10:0 8 AM CDT Provider Not In System RADIATION ONCOLOG Y ORDERABLES ADY EAST na from Last 3 Months Advance Directives For more information, please contact: [phone] * Full Code (Latest Code Status on [...] Answer Comments Full Code: Discussed Care Teams Steam Gigger Relationship Specialty Start Date End Date Elsewhere, Pcp PCP - General Family Medicine 09/09/21
--- OUTSIDE RECORDS SUMMARY | 2024-08-21 09:48 | XMS_ITS | Encounter Summary ---
Author Organization [facility] Address [address] [place] [address] Care Team Providers Care Drawing Tracer Name Role Phone Elsewhere, Pcp Primary Care Provider Unavailabl e Reason for Visit * Radiation Therapy (Routine) - Authorized Specialty Diagnoses / Procedures Referred By Misa dinero Referred To Contact Diagnoses Malignant Neoplasm Of Brain (HCC) Procedures Prior Auth Rad Tx [place] IMRT COMPLEX [place] GUIDANCE FOR LOC RAD TX [place] IMRT RADIOTHERAPY PLAN Genesis Aguilar M.D. [address] [place] [phone] [facility] Referral ID Status Reason Start Date Expiration Date V isits Requested Visits Authorized [id number] Authorized 05/15/2024 11/26/2024 30 30 Encounter Details Date Type Department Care Team (Latest Contact Info) Description 06/28/2024 9:48 AM CDT - 06/28/2024 11:59 PM CDT Hospital Encounter Department of Radiation Oncology in [place], [place] [address] [place] [phone] Genesis Aguilar M.D. [address] [place] [phone] Discharge Disposition: Home or Self Care Social [...] How often do you attend confucianism or bahai serv ices? Patient declined 07/26/2021 [...] medical care, and heating? Patient declined 07/26/2021 [facility] - Occupational Stress Questionnaire Answer Date [...] documented as of this encounter Care Teams Drawing Tracer Relationship Specialty Start Date End Date Elsewhere, Pcp PCP - General Family Medicine 09/09/21 documented as of this encounter
--- OUTSIDE RECORDS SUMMARY | 2024-08-21 09:48 | XMS_ITS | Encounter Summary ---
Author Organization [facility] Address [address] [place] [address] Care Team Providers Care Cardiovascular Lab Director Name Role Phone Elsewhere, Pcp Primary Care Provider Unavailabl e Reason for Visit * Radiation Therapy (Routine) - Authorized Specialty Diagnoses / Procedures Referred By Misa dinero Referred To Contact Diagnoses Malignant Neoplasm Of Brain (HCC) Procedures Prior Auth Rad Tx [place] IMRT COMPLEX [place] GUIDANCE FOR LOC RAD TX OR IMRT RADIOTHERAPY PLAN Genesis Aguilar M.D. [address] [place] [address] [facility] Referral ID Status Reason Start Date Expiration Date V isits Requested Visits Authorized [id number] Authorized 05/15/2024 11/26/2024 30 30 Encounter Details Date Type Department Care Team (Latest Contact Info) Description 06/26/2024 9:33 AM CDT Hospital Encounter Department of Radiation Oncology in [place], [place] [address] [place] [address] Genesis Aguilar M.D. [address] [place] [phone] Discharge Disposition: Home or Self Care Social [...] declined 07/26/2021 How often do you attend religion or temple serv ices? Patient declined 07/26/2021 Do you belong to any clubs o r organizations such as religion groups, unions, fraternal or athletic groups, or [...] documented as of this encounter Care Teams Cardiovascular Lab Director Relationship Specialty Start Date End Date Elsewhere, Pcp PCP - General Family Medicine 09/09/21 documented as of this encounter
--- OUTSIDE RECORDS SUMMARY | 2024-08-21 09:48 | XMS_ITS | Encounter Summary ---
Author Organization [facility] Address [address] [place] [address] Care Team Providers Care Panelboard Assembler Name Role Phone Elsewhere, Pcp Primary Care Provider Unavailabl e Encounter Details Date Type Department Care Team (Latest Contact Info) Description 07/02/2024 9:38 AM CDT - 07/02/2024 11:59 PM CDT Hospital Encounter Department of Radiation Oncology in [place], [place] [address] [place] [phone] Genesis Aguilar M.D. [address] [place] [address] Discharge Disposition: Home or Self Care Social [...] How often do you attend bahai or worship serv ices? Patient declined 07/26/2021 Do you [...] medical care, and heating? Patient declined 07/26/2021 [facility] Occupat ional Health - [...] place to sleep or slept in a chcf (including now)? Patient refused 07/26/2021 Nutrition Answer [...] bedtime. 04/29/2024 miscellaneous medical supply [facility] CPAP machine for home use at pressure: [...] documented as of this encounter Care Teams Panelboard Assembler Relationship Specialty Start Date End Date Elsewhere, Pcp PCP - General Family Medicine 09/09/21 documented as of this encounter
--- OUTSIDE RECORDS SUMMARY | 2024-08-21 09:48 | XMS_ITS | Encounter Summary ---
Author Organization [facility] Address [address] [place] [address] Care Team Providers Care Med Peds Name Role Phone Elsewhere, Pcp Primary Care Provider Unavailabl e Reason for Visit * Radiation Therapy (Routine) - Authorized Specialty Diagnoses / Procedures Referred By Misa dinero Referred To Contact Diagnoses Malignant Neoplasm Of Brain (HCC) Procedures Prior Auth Rad Tx [place] IMRT COMPLEX [place] GUIDANCE FOR LOC RAD TX [place] IMRT RADIOTHERAPY PLAN Genesis Aguilar M.D. [address] [place] [phone] [facility] Referral ID Status Reason Start Date Expiration Date V isits Requested Visits Authorized [id number] Authorized 05/15/2024 11/26/2024 30 30 Encounter Details Date Type Department Care Team (Latest Contact Info) Description 06/24/2024 9:41 AM CDT - 06/24/2024 11:59 PM CDT Hospital Encounter Department of Radiation Oncology in [place], [place] [address] [place] [phone] Genesis Aguilar M.D. [address] [place] [phone] Discharge Disposition: Home or Self Care Social [...] declined 07/26/2021 How often do you attend voodoo or restorationism serv ices? Patient declined 07/26/2021 Do you belong to any clubs o r organizations such as voodoo groups, unions, fraternal or athletic groups, or [...] medical care, and heating? Patient declined 07/26/2021 [facility] - Occupational Stress Questionnaire Answer Date Recorded [...] documented as of this encounter Care Teams Med Peds Relationship Specialty Start Date End Date Elsewhere, Pcp PCP - General Family Medicine 09/09/21 documented as of this encounter
--- OUTSIDE RECORDS SUMMARY | 2024-08-21 09:48 | XMS_ITS | Encounter Summary ---
Author Organization [facility] Address [address] [place] [address] Care Team Providers Care Service Unit Operator Oil Well Name Role Phone Elsewhere, Pcp Primary Care Provider Unavailabl e Reason for Visit * Radiation Therapy (Routine) - Authorized Specialty Diagnoses / Procedures Referred By Misa dinero Referred To Contact Diagnoses Malignant Neoplasm Of Brain (HCC) Procedures Prior Auth Rad Tx [place] IMRT COMPLEX [place] GUIDANCE FOR LOC RAD TX [place] IMRT RADIOTHERAPY PLAN Genesis Aguilar M.D. [address] [place] [phone] [facility] Referral ID Status Reason Start Date Expiration Date V isits Requested Visits Authorized [id number] Authorized 05/15/2024 11/26/2024 30 30 Encounter Details Date Type Department Care Team (Latest Contact Info) Description 06/20/2024 9:36 AM CDT - 06/20/2024 11:59 PM CDT Hospital Encounter Department of Radiation Oncology in [place], [place] [address] [place] [phone] Genesis Aguilar M.D. [address] [place] [phone] Discharge Disposition: Home or Self Care Social [...] How often do you attend adventist or bahai serv ices? Patient declined 07/26/2021 [...] medical care, and heating? Patient declined 07/26/2021 [facility] - Occupational Stress Questionnaire Answer Date [...] mouth at bedtime. 04/29/2024 miscellaneous medical supply [facility] CPAP machine for home use at pressure: [...] documented as of this encounter Care Teams Service Unit Operator Oil Well Relationship Specialty Start Date End Date Elsewhere, Pcp PCP - General Family Medicine 09/09/21 documented as of this encounter
--- OUTSIDE RECORDS SUMMARY | 2024-08-21 09:48 | XMS_ITS ---
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 Past Plans Radiation Treatments * Plan Last Treated On Elapsed Days Fractions Treated Prescribed Fraction Dose Prescribed Total Dose [id number] 07/02/2024 43 30 of 30 200 cGy 6,000 cGy Reference Point Last Treated On Elapsed Days Session Dose Total Dose [id number] 07/02/2024 43 200 cGy 6,000 cGy
--- OUTSIDE RECORDS SUMMARY | 2024-08-21 09:48 | XMS_ITS | Encounter Summary ---
Author Organization [facility] Address [address] [place] [address] Care Team Providers Care Sticker On Name Role Phone Elsewhere, Pcp Primary Care Provider Unavailabl e Reason for Visit * Radiation Therapy (Routine) - Authorized Specialty Diagnoses / Procedures Referred By Misa dinero Referred To Contact Diagnoses Malignant Neoplasm Of Brain (HCC) Procedures Prior Auth Rad Tx MS IMRT COMPLEX MS GUIDANCE FOR LOC RAD TX MS IMRT RADIOTHERAPY PLAN Genesis Aguilar M.D. [address] [place] [phone] [facility] Referral ID Status Reason Start Date Expiration Date V isits Requested Visits Authorized [id number] Authorized 05/15/2024 11/26/2024 30 30 Encounter Details Date Type Department Care Team (Latest Contact Info) Description 06/21/2024 9:28 AM CDT - 06/21/2024 11:59 PM CDT Hospital Encounter Department of Radiation Oncology in [place], [place] [address] [place] [address] Genesis Aguilar M.D. [address] [place] [phone] Discharge Disposition: Home or Self Care Social [...] How often do you attend caodaism or jewish serv ices? Patient declined 07/26/2021 [...] medical care, and heating? Patient declined 07/26/2021 [facility] - Occupational Stress Questionnaire [...] documented as of this encounter Care Teams Sticker On Relationship Specialty Start Date End Date Elsewhere, Pcp PCP - General Family Medicine 09/09/21 documented as of this encounter
--- OUTSIDE RECORDS SUMMARY | 2024-08-21 09:48 | XMS_ITS | Referral Summary ---
Author Organization [facility] Address [address] [place] [address] Care Team Providers Care Sheetmetal Worker Name Role Phone Elsewhere, Pcp Primary Care Provider Unavailabl e Source Comments Patient records contain information from all sites at [facility]. For routine questions regarding patient records, call [phone] during business hours, M-F 8:00 AM - 5:00 PM Central Time. Record requests for emergency care only can be directed to [phone] at any time.[facility] Encounters Date Type Department Care Team Description 07/02/2024 Documentation Department of Radiation Oncology in [address] [address] Genesis Aguilar M.D. 07/02/2024 9:38 AM CDT - 07/02/2024 11:59 PM CDT Hospital Encounter Department of Radiation Oncology in [address] [address] Genesis Aguilar M.D. Discharge Disposition: Home or Self Care 07/01/2024 9:43 AM CDT - 07/01/2024 11:59 PM CDT Hospital Encounter Department of Radiation Oncology in [address] [address] Genesis Aguilar M.D. Discharge Disposition: Home or Self Care 06/28/2024 9:48 AM CDT - 06/28/2024 11:59 PM CDT Hospital Encounter Department of Radiation Oncology in [address] [address] Genesis Aguilar M.D. Discharge Disposition: Home or Self Care 06/27/2024 Documentation Department of Oncology in [place], [place] [address] [place] [address] Amy Ward M.STeo., L.I.C.S.W. 06/27/2024 9:28 AM CDT - 06/27/2024 11:59 PM CDT Hospital Encounter Department of Radiation Oncology in [address] [address] Genesis Aguilar M.D. Discharge Disposition: Home or Self Care 06/26/2024 9:34 AM CDT - 06/26/2024 2:36 PM CDT Hospital Encounter Department of Radiation Oncology in [address] [address] Genesis Aguilar M.D. Malignant Neoplasm Of Brain (HCC) 06/26/2024 9:33 AM CDT Hospital Encounter Department of Radiation Oncology in [address] [address] Genesis Aguilar M.D. Discharge Disposition: Home or Self Care 06/25/2024 9:41 AM CDT - 06/25/2024 11:59 PM CDT Hospital Encounter Department of Radiation Oncology in [address] [address] Genesis Aguilar M.D. Discharge Disposition: Home or Self Care 06/24/2024 9:41 AM CDT - 06/24/2024 11:59 PM CDT Hospital Encounter Department of Radiation Oncology in [address] [address] Genesis Aguilar M.D. Discharge Disposition: Home or Self Care 06/21/2024 9:28 AM CDT - 06/21/2024 11:59 PM CDT Hospital Encounter Department of Radiation Oncology in [address] [address] Genesis Aguilar M.D. Discharge Disposition: Home or Self Care 06/20/2024 9:36 AM CDT - 06/20/2024 11:59 PM CDT Hospital Encounter Department of Radiation Oncology in [address] [address] Genesis Aguilar M.D. Discharge Disposition: Home or Self Care 06/19/2024 9:14 AM CDT - 06/19/2024 2:50 PM CDT Hospital Encounter Department of Radiation Oncology in [address] [address] Genesis Aguilar M.D. Malignant Neoplasm Of Brain (HCC) 06/19/2024 9:14 AM CDT - 06/19/2024 11:59 PM CDT Hospital Encounter Department of Radiation Oncology in [address] [address] Genesis Aguilar M.D. Discharge Disposition: Home or Self Care 06/18/2024 9:49 AM CDT - 06/18/2024 11:59 PM CDT Hospital Encounter Department of Radiation Oncology in [address] [address] Genesis Aguilar M.D. Discharge Disposition: Home or Self Care 06/17/2024 9:40 AM CDT - 06/17/2024 11:59 PM CDT Hospital Encounter Department of Radiation Oncology in [address] [address] Genesis Aguilar M.D. Discharge Disposition: Home or Self Care 06/14/2024 9:43 AM CDT - 06/14/2024 11:59 PM CDT Hospital Encounter Department of Radiation Oncology in [address] [address] Genesis Aguilar M.D. Discharge Disposition: Home or Self Care 06/13/2024 9:40 AM CDT - 06/13/2024 11:59 PM CDT Hospital Encounter Department of Radiation Oncology in [address] [address] Genesis Aguilar M.D. Discharge Disposition: Home or Self Care 06/12/2024 9:44 AM CDT - 06/12/2024 12:55 PM CDT Hospital Encounter Department of Radiation Oncology in [address] [address] Genesis Aguilar M.D. Malignant Neoplasm Of Brain (HCC) 06/12/2024 9:44 AM CDT - 06/12/2024 11:59 PM CDT Hospital Encounter Department of Radiation Oncology in [address] [address] Genesis Aguilar M.D. Discharge Disposition: Home or Self Care 06/11/2024 Clinical Communication Department of Oncology in [place], [place] [address] [place] [address] Amy Ward, M.S.W., L.I.C.S.W. 06/11/2024 9:47 AM CDT - 06/11/2024 11:59 PM CDT Hospital Encounter Department of Radiation Oncology in [address] [address] Genesis Aguilar M.D. Discharge Disposition: Home or Self Care 06/10/2024 10:30 AM CDT - 06/10/2024 11:20 AM CDT Hospital Encounter Department of Radiation Oncology in [address] [address] Genesis Aguilar M.D. Grieman, Kari A, RJudyNJudy Malignant Neoplasm Of Brain (HCC) (Primary Dx) 06/07/2024 9:46 AM CDT - 06/07/2024 11:59 PM CDT Hospital Encounter Department of Radiation Oncology in [address] [address] Genesis Aguilar M.D. Discharge Disposition: Home or Self Care 06/06/2024 9:56 AM CDT - 06/06/2024 11:59 PM CDT Hospital Encounter Department of Radiation Oncology in [address] [address] Genesis Aguilar M.D. Discharge Disposition: Home or Self Care 06/05/2024 9:43 AM CDT - 06/05/2024 11:59 PM CDT Hospital Encounter Department of Radiation Oncology in [address] [address] Genesis Aguilar M.D. Discharge Disposition: Home or Self Care 06/04/2024 9:54 AM CDT - 06/04/2024 6:14 PM CDT Hospital Encounter Department of Radiation Oncology in [address] [address] Jeovanny Khalil M.D. Malignant Neoplasm Of Brain (HCC) 06/04/2024 9:53 AM CDT Hospital Encounter Department of Radiation Oncology in [address] [address] Genesis Aguilar M.D. Discharge Disposition: Home or Self Care 06/03/2024 10:00 AM CDT - 06/03/2024 11:59 PM CDT Hospital Encounter Department of Radiation Oncology in [address] [address] Genesis Aguilar M.D. Discharge Disposition: Home or Self Care 05/31/2024 10:13 AM CDT - 05/31/2024 11:59 PM CDT Hospital Encounter Department of Radiation Oncology in [address] [address] Genesis Aguilar M.D. Discharge Disposition: Home or Self Care 05/29/2024 9:58 AM CDT - 05/29/2024 11:26 AM CDT Hospital Encounter Department of Radiation Oncology in [address] [address] Genesis Aguilar M.D. Malignant Neoplasm Of Brain (HCC) 05/29/2024 9:58 AM CDT - 05/29/2024 11:59 PM CDT Hospital Encounter Department of Radiation Oncology in [address] [address] Genesis Aguilar M.D. Discharge Disposition: Home or Self Care 05/28/2024 8:50 AM CDT - 05/28/2024 9:32 AM CDT Hospital Encounter Department of Radiation Oncology in [address] [address] Mica Gonzalez M.D. Wacholz, Abigail M, M.S.W., L.I.C.S.W. Counseling Phase Of Life Problem (Primary Dx); Malignant Neoplasm Of Brain (HCC) Discharge Disposition: Home or Self Care 05/28/2024 9:33 AM CDT - 05/28/2024 11:59 PM CDT Hospital Encounter Department of Radiation Oncology in [address] [address] Genesis Aguilar M.D. Discharge Disposition: Home or Self Care 05/27/2024 9:30 AM CDT - 05/27/2024 9:44 AM CDT Hospital Encounter Department of Radiation Oncology in [address] [address] Genesis Aguilar M.D. Grieman, Kari A, R.NJudy Malignant Neoplasm Of Brain (HCC) (Primary Dx) 05/27/2024 9:45 AM CDT - 05/27/2024 11:59 PM CDT Hospital Encounter Department of Radiation Oncology in [address] [address] Genesis Aguilar M.D. Discharge Disposition: Home or Self Care 05/24/2024 9:46 AM CDT - 05/24/2024 2:34 PM CDT Hospital Encounter Department of Radiation Oncology in [address] [address] Genesis Aguilar M.D. Grieman, Kari A, R.N. Malignant Neoplasm Of Brain (HCC) Discharge Disposition: Home or Self Care 05/24/2024 9:46 AM CDT - 05/24/2024 11:59 PM CDT Hospital Encounter Department of Radiation Oncology in [address] [address] Genesis Aguilar M.D. Discharge Disposition: Home or Self Care 05/23/2024 11:04 AM CDT - 05/23/2024 2:35 PM CDT Hospital Encounter Department of Radiation Oncology in [address] [address] Genesis Aguilar M.D. Retterath, Chelsey A, R.NJudy Malignant Neoplasm Of Brain (HCC) (Primary Dx) 05/23/2024 9:51 AM CDT - 05/23/2024 11:03 AM CDT Hospital Encounter Department of Radiation Oncology in [address] [address] Genesis Aguilar M.D. Discharge Disposition: Home or Self Care 05/22/2024 9:53 AM CDT - 05/22/2024 11:59 PM CDT Hospital Encounter Department of Radiation Oncology in [address] [address] Genesis Aguilar M.D. Discharge Disposition: Home or Self Care 05/21/2024 2:35 PM CDT - 05/21/2024 4:59 PM CDT Hospital Encounter Department of Radiation Oncology in [place], [place] [address] [place] [address] Genesis Aguilar M.D. Malignant Neoplasm Of Brain (HCC) 05/21/2024 2:34 PM CDT Hospital Encounter Department of Radiation Oncology in [place], [place] [address] [place] [address] Genesis Aguilar M.D. 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 Patient declined 07/26/2021 Do you belong to any clubs o r organizations such as episcopalian groups, unions, fraternal or athletic groups, or [...] medical care, and heating? Patient declined 07/26/2021 [facility] - Occupational Stress [...] DT Respiratory Rate 18 10/08/2021 4:40 PM CHYRON OPERATOR Oxygen Saturation 96% 10/08/2021 4:40 PM CHYRON OPERATOR Inhaled Oxygen Concentration - - Weight 115 kg (254 lb 10.1 oz) 06/26/2024 10:32 AM CDT Height 177.8 cm (5' 10) 10/08/2021 3:55 PM CHYRON OPERATOR Body Mass Index 36.54 10/08/2021 3:55 PM CHYRON OPERATOR Plan of Treatment Not on file Medical Devices Implanted Type Area Can Pusher Device Identifier Shelf Expiration Date Model / Serial / Lot Clp [facility] - [id number] Implanted:Qty : 1 on 09/09/2021 by Sanford Mena M.D. at [facility] Hardware e.g. pins/screws/ rods Right: Leg [employer]icon [id number] 05/26/2026 MCS20 / / [id number] Cl[facility] - [id number] Implanted:Qty : 1 on 09/09/2021 by Sanford Mena M.D. at [facility] Hardware e.g. pins/screws/ rods Right: Leg Ethicon [id number] 05/26/2026 MSM20 / / [id number] Explanted Type Area Can Pusher Device Identifier Shelf Expiration Date Model / Serial / Lot Cmnt Bn Hi Visc Pmma 40 - [id number] Implanted:Qty: 1 on 11/15/2019 by Maude Shah M.D. at [facility] Explanted:Qty: 1 on 12/03/2019 by Sanford Mena M.D. 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) BASIC METABOLIC PANEL, S/P Routine 11/19/2019 7:46 AM CHYRON OPERATOR from Last 3 Months or Most [...] Elapsed Days 43 GARSIA ARIA Reference Point [id number] GRASIA ARIA Dosage Given to Date cGy 6000 GARSIA ARIA Plan ID [id number] GARSIA ARIA Fractions Treated to Date 30 GARSIA ARIA Planned Total Fractions 30 GARSIA ARIA Prescribed Dose Per Fraction 200 GARSIA ARIA Prescription Dose in cGy 6000 GARSIA ARIA Plan Primary Reference Point [id number] GARSIA ARIA 07/02/2024 10:0 8 AM CDT [...] Elapsed Days 43 GARSIA ARIA Reference Point [id number] GARSIA ARIA Dosage Given to Date cGy 6000 GARSIA ARIA Session Dosage Given 200 GARSIA ARIA Plan ID [id number] GARSIA ARIA Fractions Treated to Date 30 GARSIA ARIA Planned Total Fractions 30 GARSIA ARIA Prescribed Dose Per Fraction 200 GARSIA ARIA Prescription Dose in cGy 6000 GARSIA ARIA Plan Primary Reference Point [id number] GARSIA ARIA 07/02/2024 10:0 8 AM CDT Provider Not In System RADIATION ONCOLOG Y ORDERABLES ADY hannon from Last 3 Months Advance Directives For more information, please contact: [phone] * Full Code (Latest Code Status on [...] Answer Comments Full Code: Discussed Care Teams Sheetmetal Worker Relationship Specialty Start Date End Date Elsewhere, Pcp PCP - General Family Medicine 09/09/21
--- OUTSIDE RECORDS SUMMARY | 2024-08-21 09:48 | XMS_ITS | Encounter Summary ---
Author Organization [facility] Address [address] [place] [address] Care Team Providers Care Prosthetic Aide Name Role Phone Elsewhere, Pcp Primary Care Provider Unavailabl e Reason for Referral * Radiation Therapy (Routine) - Authorized Specialty Diagnoses / Procedures Referred By Misa dinero Referred To Contact Diagnoses Malignant Neoplasm Of Brain (HCC) Procedures Management Visit Genesis Aguilar M.D. [address] [place] [address] [facility] Referral ID Status Reason Start Date Expiration Date V isits Requested Visits Authorized [id number] Authorized 05/03/2024 05/03/2025 10 10 Reason for Visit * Radiation Therapy (Routine) - Authorized Specialty Diagnoses / Procedures Referred By Misa dinero Referred To Contact Diagnoses Malignant Neoplasm Of Brain (HCC) Procedures Management Visit Genesis Aguilar M.D. [address] [place] [address] [facility] Referral ID Status Reason Start Date Expiration Date V isits Requested Visits Authorized [id number] Authorized 05/03/2024 05/03/2025 10 10 Encounter Details Date Type Department Care Team (Latest Contact Info) Description 06/26/2024 9:34 AM CDT - 06/26/2024 2:36 PM CDT Hospital Encounter Department of Radiation Oncology in [place], [place] [address] [place] [phone] Genesis Aguilar M.D. [address] [place] [address] Malignant Neoplasm Of Brain (HCC) Social History [...] How often do you attend pentecostalism or jainism serv ices? Patient declined 07/26/2021 [...] medical care, and heating? 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
--- OUTSIDE RECORDS SUMMARY | 2024-08-21 09:48 | XMS_ITS | Encounter Summary ---
Author Organization [facility] Address [address] [place] [address] Care Team Providers Care Long Wall Shear Operator Name Role Phone Elsewhere, Pcp Primary Care Provider Unavailabl e Reason for Visit * Radiation Therapy (Routine) - Authorized Specialty Diagnoses / Procedures Referred By Misa dinero Referred To Contact Diagnoses Malignant Neoplasm Of Brain (HCC) Procedures Prior Auth Rad Tx CA IMRT COMPLEX CA GUIDANCE FOR LOC RAD TX CA IMRT RADIOTHERAPY PLAN Genesis Aguilar M.D. [address] [place] [phone] [facility] Referral ID Status Reason Start Date Expiration Date V isits Requested Visits Authorized [id number] Authorized 05/15/2024 11/26/2024 30 30 Encounter Details Date Type Department Care Team (Latest Contact Info) Description 07/01/2024 9:43 AM CDT - 07/01/2024 11:59 PM CDT Hospital Encounter Department of Radiation Oncology in [place], [place] [address] [place] [phone] Genesis Aguilar M.D. [address] [place] [phone] Discharge Disposition: Home or Self Care Social [...] How often do you attend restorationist or latter day serv ices? Patient declined [...] medical care, and heating? Patient declined 07/26/2021 [facility] - Occupational Stress Questionnaire Answer [...] documented as of this encounter Care Teams Long Wall Shear Operator Relationship Specialty Start Date End Date Elsewhere, Pcp PCP - General Family Medicine 09/09/21 documented as of this encounter
--- OUTSIDE RECORDS SUMMARY | 2024-08-21 09:48 | XMS_ITS | Encounter Summary ---
Author Organization [facility] Address [address] [place] [address] Care Team Providers Care Ibm Bpm Developer Name Role Phone Elsewhere, Pcp Primary Care Provider Unavailabl e Encounter Details Date Type Department Care Team (Late st Contact Info) Description 06/27/2024 Documentation Department of Oncology in [place], [place] [address] [place] [address] Amy Ward, M.S.W., L.I.C.S.W. [address] [place] [address] Social History Tobacco Use Types Packs/Day Years [...] How often do you attend yarsani or confucianist serv ices? Patient declined 07/26/2021 Do you [...] care, and heating? Patient declined 07/26/2021 [facility] - Occupational [...] a call from patient's father, Chad at [phone] asking for more resources for patient in help paying his bills. Customer Account Coordinator previously assisted in getting patient giftcards from[employer] and [employer]. Chad states the patient has not paid [...] Also encouraged them to [facility] to see if he would qualify for [...] documented as of this encounter Care Teams Ibm Bpm Developer Relationship Specialty Start Date End Date Elsewhere, Pcp PCP - General Family Medicine 09/09/21 documented as of this encounter
--- OUTSIDE RECORDS SUMMARY | 2024-08-21 09:48 | XMS_ITS | Encounter Summary ---
Author Organization [facility] Address [address] [place] [address] Care Team Providers Care Floor Coverer Name Role Phone Elsewhere, Pcp Primary Care Provider Unavailabl e Encounter Details Date Type Department Care Team (Late st Contact Info) Description 07/02/2024 Documentation Department of Radiation Oncology in [place], [place] [address] [place] [address] Genesis Aguilar M.D. [address] [place] [phone] Social History Tobacco Use Types Packs/Day Years [...] How often do you attend adventist or yazidism serv ices? Patient declined 07/26/2021 [...] medical care, and heating? Patient declined [facility]20[facility] - Occupational Stress Questionnaire Answer Date Recorded [...] (cGy) First Treatment Last Treatment Elapsed Days [id number] 200 6000 6000 05/20/2024 07/02/2024 43 Course [...] Jessica Arevalo R.N., 07/26/2024 4:06 PM CDT [facility] [address] [place] [address] documented in this encounter Plan of Treatment Not on file documented as of this encounter Visit Diagnoses Diagnosis Malignant Neoplasm Of Brain (HCC)- Primary documented in this encounter Additional Health Concerns Infection Onset Date Last Indicated Resolved Time Protective Environment 05/27/2024 05/27/202407/26 5:47 AM CDT documented as of this encounter Care Teams Floor Coverer Relationship Specialty Start Date End Date Elsewhere, Pcp PCP - General Family Medicine 09/09/21 documented as of this encounter
--- OUTSIDE RECORDS SUMMARY | 2024-08-21 09:48 | XMS_ITS | Encounter Summary ---
Author Organization [facility] Address [address] [place] [address] Care Team Providers Care Pulverizer Operator Name Role Phone Elsewhere, Pcp Primary Care Provider Unavailabl e Reason for Visit * Radiation Therapy (Routine) - Authorized Specialty Diagnoses / Procedures Referred By Misa dinero Referred To Contact Diagnoses Malignant Neoplasm Of Brain (HCC) Procedures Prior Auth Rad Tx RI IMRT COMPLEX RI GUIDANCE FOR LOC RAD TX RI IMRT RADIOTHERAPY PLAN Genesis Aguilar M.D. [address] [place] [phone] [facility] Referral ID Status Reason Start Date Expiration Date V isits Requested Visits Authorized [id number] Authorized 05/15/2024 11/26/2024 30 30 Encounter Details Date Type Department Care Team (Latest Contact Info) Description 06/25/2024 9:41 AM CDT - 06/25/2024 11:59 PM CDT Hospital Encounter Department of Radiation Oncology in [place], [place] [address] [place] [phone] Genesis Aguilar M.D. [address] [place] [phone] Discharge Disposition: Home or Self Care Social [...] How often do you attend caodaism or mormonism serv ices? Patient declined 07/26/2021 [...] Patient declined 07/26/2021 [facility] - Occupational Stress Questionnaire Answer [...] documented as of this encounter Care Teams Pulverizer Operator Relationship Specialty Start Date End Date Elsewhere, Pcp PCP - General Family Medicine 09/09/21 documented as of this encounter
--- OUTSIDE RECORDS SUMMARY | 2024-08-21 09:48 | XMS_ITS | Encounter Summary ---
Author Organization [facility] Address [address] [place] [address] Care Team Providers Care Program Director Name Role Phone Elsewhere, Pcp Primary Care Provider Unavailabl e Reason for Visit * Radiation Therapy (Routine) - Authorized Specialty Diagnoses / Procedures Referred By Misa dinero Referred To Contact Diagnoses Malignant Neoplasm Of Brain (HCC) Procedures Prior Auth Rad Tx [place] IMRT COMPLEX [place] GUIDANCE FOR LOC RAD TX [place] IMRT RADIOTHERAPY PLAN Genesis Aguilar M.D. [address] [place] [phone] [facility] Referral ID Status Reason Start Date Expiration Date V isits Requested Visits Authorized [id number] Authorized 05/15/2024 11/26/2024 30 30 Encounter Details Date Type Department Care Team (Latest Contact Info) Description 06/27/2024 9:28 AM CDT - 06/27/2024 11:59 PM CDT Hospital Encounter Department of Radiation Oncology in [place], [place] [address] [place] [phone] Genesis Aguilar M.D. [address] [place] [phone] Discharge Disposition: Home or Self Care Social [...] How often do you attend restorationism or latter-day serv ices? Patient declined 07/26/2021 [...] care, and heating? Patient declined 07/26/2021 [facility] - Occupational Stress Questionnaire Answer [...] documented as of this encounter Care Teams Program Director Relationship Specialty Start Date End Date Elsewhere, Pcp PCP - General Family Medicine 09/09/21 documented as of this encounter
--- OUTSIDE RECORDS SUMMARY | 2024-08-21 09:48 | XMS_ITS | Encounter Summary ---
Author Organization [facility] Address [address] [place] [address] Care Team Providers Care Railroad Brakeman Name Role Phone Elsewhere, Pcp Primary Care Provider Unavailabl e Reason for Referral * Radiation Therapy (Routine) - Authorized Specialty Diagnoses / Procedures Referred By Misa dinero Referred To Contact Diagnoses Malignant Neoplasm Of Brain (HCC) Procedures Management Visit Genesis Aguilar M.D. [address] [place] [address] [facility] Region Referral ID Status Reason Start Date Expiration Date V isits Requested Visits Authorized [id number] Authorized 05/03/2024 05/03/2025 10 10 Reason for Visit * Radiation Therapy (Routine) - Authorized Specialty Diagnoses / Procedures Referred By Misa dinero Referred To Contact Diagnoses Malignant Neoplasm Of Brain (HCC) Procedures Management Visit Genesis Aguilar M.D. [address] [place] [address] [facility] Region Referral ID Status Reason Start Date Expiration Date V isits Requested Visits Authorized [id number] Authorized 05/03/2024 05/03/2025 10 10 Encounter Details Date Type Department Care Team (Latest Contact Info) Description 06/19/2024 9:14 AM CDT - 06/19/2024 2:50 PM CDT Hospital Encounter Department of Radiation Oncology in [place], [place] [address] [place] [phone] Genesis Aguilar M.D. [address] [place] [phone] Malignant Neoplasm Of Brain (HCC) Social History [...] How often do you attend episcopalian or nondenominational serv ices? Patient declined 07/26/2021 [...] medical care, and heating? Patient declined 07/26/2021 [facility] - [...] Body Mass Index 36.06 10/08/2021 3:55 PM REHANGER documented in this encounter Medications at Time [...] (cGy) First Treatment Last Treatment Elapsed Days [id number] 200 4200 6000 05/20/2024 06/19/2024 Course Summary [...] lower dose. This is being by his [facility] Neurologist. 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
--- OUTSIDE RECORDS SUMMARY | 2024-08-21 09:48 | XMS_ITS ---
Author Organization [facility] Address [address] [place] [address] Care Team Providers Care Credit Review Officer Name Role Phone Unavailable Unavailable Unavailable Surgery Details Not on file Complications Check Surgery Details section. Procedure Estimated Blood Loss Check Surgery Details section. Procedure Findings Check Surgery Details section. Procedure Specimens Taken Check Surgery Details section.
--- OUTSIDE RECORDS SUMMARY | 2024-08-21 09:49 | XMS_ITS | Encounter Summary ---
Author Organization [facility] Address [address] [place] [address] Care Team Providers Care Hat Brusher Machine Name Role Phone Elsewhere, Pcp Primary Care Provider Unavailabl e Reason for Visit * Radiation Therapy (Routine) - Authorized Specialty Diagnoses / Procedures Referred By Misa dinero Referred To Contact Diagnoses Malignant Neoplasm Of Brain (HCC) Procedures Prior Auth Rad Tx [place] IMRT COMPLEX DC GUIDANCE FOR LOC RAD TX [place] IMRT RADIOTHERAPY PLAN Genesis Aguilar M.D. [address] [place] [phone] [facility] Referral ID Status Reason Start Date Expiration Date V isits Requested Visits Authorized [id number] Authorized 05/15/2024 11/26/2024 30 30 Encounter Details Date Type Department Care Team (Latest Contact Info) Description 06/05/2024 9:43 AM CDT - 06/05/2024 11:59 PM CDT Hospital Encounter Department of Radiation Oncology in [place], [place] [address] [place] [phone] Genesis Aguilar M.D. [address] [place] [phone] Discharge Disposition: Home or Self Care Social [...] How often do you attend yazdanism or temple serv ices? Patient declined 07/26/2021 [...] medical care, and heating? Patient declined 07/26/2021 [facility] - Occupational Stress Questionnaire Answer Date [...] mouth at bedtime. 04/29/2024 miscellaneous medical supply [facility] CPAP machine for home use at pressure: [...] documented as of this encounter Care Teams Hat Brusher Machine Relationship Specialty Start Date End Date Elsewhere, Pcp PCP - General Family Medicine 09/09/21 documented as of this encounter
--- OUTSIDE RECORDS SUMMARY | 2024-08-21 09:49 | XMS_ITS | Encounter Summary ---
Author Organization [facility] Address [address] [place] [address] Care Team Providers Care Shingle Catcher Name Role Phone Elsewhere, Pcp Primary Care Provider Unavailabl e Reason for Visit * Radiation Therapy (Routine) - Authorized Specialty Diagnoses / Procedures Referred By Misa dinero Referred To Contact Diagnoses Malignant Neoplasm Of Brain (HCC) Procedures Prior Auth Rad Tx DE IMRT COMPLEX DE GUIDANCE FOR LOC RAD TX DE IMRT RADIOTHERAPY PLAN Genesis Aguilar M.D. [address] [place] [phone] [facility] Referral ID Status Reason Start Date Expiration Date V isits Requested Visits Authorized [id number] Authorized 05/15/2024 11/26/2024 30 30 Encounter Details Date Type Department Care Team (Latest Contact Info) Description 06/14/2024 9:43 AM CDT - 06/14/2024 11:59 PM CDT Hospital Encounter Department of Radiation Oncology in [place], [place] [address] [place] [phone] Genesis Aguilar M.D. [address] [place] [phone] Discharge Disposition: Home or Self Care Social [...] declined 07/26/2021 How often do you attend faith or gnosticist serv ices? Patient declined 07/26/2021 Do you belong to any clubs o r organizations such as faith groups, unions, fraternal or athletic groups, or [...] Patient declined 07/26/2021 [facility] - Occupational Stress Questionnaire Answer [...] documented as of this encounter Care Teams Shingle Catcher Relationship Specialty Start Date End Date Elsewhere, Pcp PCP - General Family Medicine 09/09/21 documented as of this encounter
--- OUTSIDE RECORDS SUMMARY | 2024-08-21 09:49 | XMS_ITS | Encounter Summary ---
Author Organization [facility] Address [address] [place] [address] Care Team Providers Care Vamp Wetter Name Role Phone Elsewhere, Pcp Primary Care Provider Unavailabl e Reason for Visit * Radiation Therapy (Routine) - Authorized Specialty Diagnoses / Procedures Referred By Misa dinero Referred To Contact Diagnoses Malignant Neoplasm Of Brain (HCC) Procedures Prior Auth Rad Tx [place] IMRT COMPLEX [place] GUIDANCE FOR LOC RAD TX [place] IMRT RADIOTHERAPY PLAN Genesis Aguilar M.D. [address] [place] [phone] [facility] Referral ID Status Reason Start Date Expiration Date V isits Requested Visits Authorized [id number] Authorized 05/15/2024 11/26/2024 30 30 Encounter Details Date Type Department Care Team (Latest Contact Info) Description 06/12/2024 9:44 AM CDT - 06/12/2024 11:59 PM CDT Hospital Encounter Department of Radiation Oncology in [place], [place] [address] [place] [phone] Genesis Aguilar M.D. [address] [place] [phone] Discharge Disposition: Home or Self Care Social [...] declined 07/26/2021 How often do you attend denominational or latter-day serv ices? Patient declined 07/26/2021 Do you belong to any clubs o r organizations such as denominational groups, unions, fraternal or athletic groups, or [...] Patient declined 07/26/2021 [facility] - Occupational Stress Questionnaire Answer Date Recorded [...] mouth at bedtime. 04/29/2024 miscellaneous medical supply [facility] CPAP machine for home use at pressure: [...] documented as of this encounter Care Teams Vamp Wetter Relationship Specialty Start Date End Date Elsewhere, Pcp PCP - General Family Medicine 09/09/21 documented as of this encounter
--- OUTSIDE RECORDS SUMMARY | 2024-08-21 09:49 | XMS_ITS | Encounter Summary ---
Author Organization [facility] Address [address] [place] [address] Care Team Providers Care Band Top Maker Name Role Phone Elsewhere, Pcp Primary Care Provider Unavailabl e Reason for Referral * Outpatient (Routine) - Authorized Specialty Diagnoses / Procedures Referred By Contac t Referred To Contact Radiation Oncology Genesis Aguilar M.D. [address] [place] [phone] [facility] Region Referral ID Status Reason Start Date Expiration Date V isits Requested Visits Authorized [id number] Authorized 05/23/2024 11/22/2025 5 5 Reason for Visit * Outpatient (Routine) - Authorized Specialty Diagnoses / Procedures Referred By Misa dinero Referred To Contact Radiation Oncology Genesis Aguilar M.D. [address] [place] [phone] [facility] Region Referral ID Status Reason Start Date Expiration Date V isits Requested Visits Authorized [id number] Authorized 05/23/2024 11/22/2025 5 5 Encounter Details Date Type Department Care Team (Latest Contact Info) Description 06/10/2024 10:30 AM CDT - 06/10/2024 11:20 AM CDT Hospital Encounter Department of Radiation Oncology in [place], [place] [address] [place] [phone] Genesis Aguilar M.D. [address] [place] [phone] Jessica Arevalo R.N. [address] [place] [address] Malignant Neoplasm Of Brain (HCC) (Primary Dx) [...] How often do you attend worship or sikhism serv ices? Patient declined 07/26/2021 [...] medical care, and heating? 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 Patient is [...] has appointment with his Neuro team at [facility] [address] Ryder confirmed last [...] documented as of this encounter Care Teams Band Top Maker Relationship Specialty Start Date End Date Elsewhere, Pcp PCP - General Family Medicine 09/09/21 documented as of this encounter
--- OUTSIDE RECORDS SUMMARY | 2024-08-21 09:49 | XMS_ITS | Encounter Summary ---
Author Organization [facility] Address [address] [place] [address] Care Team Providers Care Theatre Manager Name Role Phone Elsewhere, Pcp Primary Care Provider Unavailabl e Reason for Visit * Radiation Therapy (Routine) - Authorized Specialty Diagnoses / Procedures Referred By Misa dinero Referred To Contact Diagnoses Malignant Neoplasm Of Brain (HCC) Procedures Prior Auth Rad Tx [place] IMRT COMPLEX [place] GUIDANCE FOR LOC RAD TX [place] IMRT RADIOTHERAPY PLAN Genesis Aguilar M.D. [address] [place] [phone] [facility] Referral ID Status Reason Start Date Expiration Date V isits Requested Visits Authorized [id number] Authorized 05/15/2024 11/26/2024 30 30 Encounter Details Date Type Department Care Team (Latest Contact Info) Description 06/17/2024 9:40 AM CDT - 06/17/2024 11:59 PM CDT Hospital Encounter Department of Radiation Oncology in [place], [place] [address] [place] [phone] Genesis Aguilar M.D. [address] [place] [phone] Discharge Disposition: Home or Self Care Social [...] How often do you attend amish or baptist serv ices? Patient declined 07/26/2021 [...] declined 07/26/2021 [facility] - Occupational Stress Questionnaire Answer [...] mouth at bedtime. 04/29/2024 miscellaneous medical supply [facility] CPAP machine for home use at pressure: [...] documented as of this encounter Care Teams Theatre Manager Relationship Specialty Start Date End Date Elsewhere, Pcp PCP - General Family Medicine 09/09/21 documented as of this encounter
--- OUTSIDE RECORDS SUMMARY | 2024-08-21 09:49 | XMS_ITS | Encounter Summary ---
Author Organization [facility] Address [address] [place] [address] Care Team Providers Care Food Equipment Service Technician Name Role Phone Elsewhere, Pcp Primary Care Provider Unavailabl e Reason for Visit * Radiation Therapy (Routine) - Authorized Specialty Diagnoses / Procedures Referred By Misa dinero Referred To Contact Diagnoses Malignant Neoplasm Of Brain (HCC) Procedures Prior Auth Rad Tx [place] IMRT COMPLEX [place] GUIDANCE FOR LOC RAD TX [place] IMRT RADIOTHERAPY PLAN Genesis Augilar M.D. [address] [place] [phone] [facility] Referral ID Status Reason Start Date Expiration Date V isits Requested Visits Authorized [id number] Authorized 05/15/2024 11/26/2024 30 30 Encounter Details Date Type Department Care Team (Latest Contact Info) Description 06/06/2024 9:56 AM CDT - 06/06/2024 11:59 PM CDT Hospital Encounter Department of Radiation Oncology in [place], [place] [address] [place] [phone] Genesis Aguilar M.D. [address] [place] [phone] Discharge Disposition: Home or Self Care Social [...] How often do you attend yazidi or amish serv ices? Patient declined 07/26/2021 [...] declined 07/26/2021 [facility] [place] [facility] - Occupational Stress Questionnaire Answer Date [...] at bedtime. 04/29/2024 miscellaneous medical supply [facility] CPAP machine for home use at pressure: [...] documented as of this encounter Care Teams Food Equipment Service Technician Relationship Specialty Start Date End Date Elsewhere, Pcp PCP - General Family Medicine 09/09/21 documented as of this encounter
--- OUTSIDE RECORDS SUMMARY | 2024-08-21 09:49 | XMS_ITS | Encounter Summary ---
Author Organization [facility] Address [address] [place] [address] Care Team Providers Care Topline Beading Machine Tender Name Role Phone Elsewhere, Pcp Primary Care Provider Unavailabl e Reason for Referral * Radiation Therapy (Routine) - Authorized Specialty Diagnoses / Procedures Referred By Misa garcia Referred To Contact Diagnoses Malignant Neoplasm Of Brain (HCC) Procedures Management Visit Genesis Aguilar M.D. [address] [place] [address] [facility] Region Referral ID Status Reason Start Date Expiration Date V isits Requested Visits Authorized [id number] Authorized 05/03/2024 05/03/2025 10 10 Reason for Visit * Radiation Therapy (Routine) - Authorized Specialty Diagnoses / Procedures Referred By Misa garcia Referred To Contact Diagnoses Malignant Neoplasm Of Brain (HCC) Procedures Management Visit Genesis Aguilar M.D. [address] [place] [address] [facility] Region Referral ID Status Reason Start Date Expiration Date V isits Requested Visits Authorized [id number] Authorized 05/03/2024 05/03/2025 10 10 Encounter Details Date Type Department Care Team (Latest Contact Info) Description 06/04/2024 9:54 AM CDT - 06/04/2024 6:14 PM CDT Hospital Encounter Department of Radiation Oncology in [place], [place] [address] [place] [phone] Jeovanny Khalil M.D. [address] [place] [address] Malignant Neoplasm Of Brain (HCC) Social History [...] How often do you attend jewish or hinduism serv ices? Patient declined 07/26/2021 Do you [...] medical care, and heating? Patient declined 07/26/2021 [facility] Occupat ional Health - [...] Body Mass Index 34.8 10/08/2021 3:55 PM MILLED LUMBER GRADER documented in this encounter Medications at Time [...] mouth at bedtime. 04/29/2024 miscellaneous medical supply [facility] CPAP machine for home use at pressure: [...] (cGy) First Treatment Last Treatment Elapsed Days [id number] 200 2200 6000 05/20/2024 06/04/2024 15 Course [...] ASSESSMENT / PLAN #1 Right temporal glioblastoma (ERECTION SHOP SUPERVISOR who grade 4), IDH negative, MGMT [...] and evening. Patient declined visit with our Vessel Welder. We will re check weight next week. [...] M.D. 06/04/2024 6:13 PM CDT [facility] [address] [place] [address] documented in this encounter Miscellaneous Notes * [...] documented as of this encounter Care Teams Topline Beading Machine Tender Relationship Specialty Start Date End Date Elsewhere, Pcp PCP - General Family Medicine 09/09/21 documented as of this encounter
--- OUTSIDE RECORDS SUMMARY | 2024-08-21 09:49 | XMS_ITS | Encounter Summary ---
Author Organization [facility] Address [address] [place] [address] Care Team Providers Care Plasterer Journeyman Name Role Phone Elsewhere, Pcp Primary Care Provider Unavailabl e Reason for Visit * Radiation Therapy (Routine) - Authorized Specialty Diagnoses / Procedures Referred By Misa dinero Referred To Contact Diagnoses Malignant Neoplasm Of Brain (HCC) Procedures Prior Auth Rad Tx [place] IMRT COMPLEX [place] GUIDANCE FOR LOC RAD TX [place] IMRT RADIOTHERAPY PLAN Genesis Aguilar M.D. [address] [place] [phone] [facility] Referral ID Status Reason Start Date Expiration Date V isits Requested Visits Authorized [id number] Authorized 05/15/2024 11/26/2024 30 30 Encounter Details Date Type Department Care Team (Latest Contact Info) Description 06/07/2024 9:46 AM CDT - 06/07/2024 11:59 PM CDT Hospital Encounter Department of Radiation Oncology in [place], [place] [address] [place] [phone] Genesis Aguilar M.D. [address] [place] [phone] Discharge Disposition: Home or Self Care Social [...] How often do you attend confucianism or mandaen serv ices? Patient declined 07/26/2021 [...] Patient declined 07/26/2021 [facility] - Occupational Stress Questionnaire Answer Date Recorded [...] documented as of this encounter Care Teams Plasterer Journeyman Relationship Specialty Start Date End Date Elsewhere, Pcp PCP - General Family Medicine 09/09/21 documented as of this encounter
--- OUTSIDE RECORDS SUMMARY | 2024-08-21 09:49 | XMS_ITS | Encounter Summary ---
Author Organization [facility] Address [address] [place] [address] Care Team Providers Care Dimensional Inspector Name Role Phone Elsewhere, Pcp Primary Care Provider Unavailabl e Reason for Visit * Radiation Therapy (Routine) - Authorized Specialty Diagnoses / Procedures Referred By Misa dinero Referred To Contact Diagnoses Malignant Neoplasm Of Brain (HCC) Procedures Prior Auth Rad Tx [place] IMRT COMPLEX [place] GUIDANCE FOR LOC RAD TX [place] IMRT RADIOTHERAPY PLAN Genesis Aguilar M.D. [address] [place] [phone] [facility] Referral ID Status Reason Start Date Expiration Date V isits Requested Visits Authorized [id number] Authorized 05/15/2024 11/26/2024 30 30 Encounter Details Date Type Department Care Team (Latest Contact Info) Description 06/11/2024 9:47 AM CDT - 06/11/2024 11:59 PM CDT Hospital Encounter Department of Radiation Oncology in [place], [place] [address] [place] [phone] Genesis Aguilar M.D. [address] [place] [phone] Discharge Disposition: Home or Self Care Social [...] How often do you attend adventism or yarsanism serv ices? Patient declined 07/26/2021 Do you [...] Patient declined 07/26/2021 [facility] - Occupational Stress Questionnaire Answer Date [...] documented as of this encounter Care Teams Dimensional Inspector Relationship Specialty Start Date End Date Elsewhere, Pcp PCP - General Family Medicine 09/09/21 documented as of this encounter
--- OUTSIDE RECORDS SUMMARY | 2024-08-21 09:49 | XMS_ITS | Encounter Summary ---
Author Organization [facility] Address [address] [place] [address] Care Team Providers Care Shale Planer Operator Name Role Phone Elsewhere, Pcp Primary Care Provider Unavailabl e Reason for Visit * Radiation Therapy (Routine) - Authorized Specialty Diagnoses / Procedures Referred By Misa dinero Referred To Contact Diagnoses Malignant Neoplasm Of Brain (HCC) Procedures Prior Auth Rad Tx [place] IMRT COMPLEX [place] GUIDANCE FOR LOC RAD TX [place] IMRT RADIOTHERAPY PLAN Genesis Aguilar M.D. [address] [place] [phone] [facility] Referral ID Status Reason Start Date Expiration Date V isits Requested Visits Authorized [id number] Authorized 05/15/2024 11/26/2024 30 30 Encounter Details Date Type Department Care Team (Latest Contact Info) Description 06/18/2024 9:49 AM CDT - 06/18/2024 11:59 PM CDT Hospital Encounter Department of Radiation Oncology in [place], [place] [address] [place] [phone] Genesis Aguilar M.D. [address] [place] [phone] Discharge Disposition: Home or Self Care Social [...] How often do you attend faith or temple serv ices? Patient declined 07/26/2021 [...] medical care, and heating? Patient declined 07/26/2021 [facility] - Occupational Stress Questionnaire Answer Date [...] documented as of this encounter Care Teams Shale Planer Operator Relationship Specialty Start Date End Date Elsewhere, Pcp PCP - General Family Medicine 09/09/21 documented as of this encounter
--- OUTSIDE RECORDS SUMMARY | 2024-08-21 09:49 | XMS_ITS | Encounter Summary ---
Author Organization [facility] Address [address] [place] [address] Care Team Providers Care Home Economics Expert Name Role Phone Elsewhere, Pcp Primary Care Provider Unavailabl e Reason for Visit * Radiation Therapy (Routine) - Authorized Specialty Diagnoses / Procedures Referred By Misa dinero Referred To Contact Diagnoses Malignant Neoplasm Of Brain (HCC) Procedures Prior Auth Rad Tx [place] IMRT COMPLEX [place] GUIDANCE FOR [place] RAD [place] IMRT RADIOTHERAPY PLAN Genesis Aguilar M.D. [address] [place] [phone] [facility] Referral ID Status Reason Start Date Expiration Date V isits Requested Visits Authorized [id number] Authorized 05/15/2024 11/26/2024 30 30 Encounter Details Date Type Department Care Team (Latest Contact Info) Description 06/19/2024 9:14 AM CDT - 06/19/2024 11:59 PM CDT Hospital Encounter Department of Radiation Oncology in [place], [place] [address] [place] [phone] Genesis Aguilar M.D. [address] [place] [phone] Discharge Disposition: Home or Self Care Social [...] How often do you attend scientologist or rastafari serv ices? Patient declined 07/26/2021 Do you [...] Patient declined 07/26/2021 [facility] - Occupational Stress Questionnaire Answer Date [...] mouth at bedtime. 04/29/2024 miscellaneous medical supply [facility] CPAP machine for home [...] documented as of this encounter Care Teams Home Economics Expert Relationship Specialty Start Date End Date Elsewhere, Pcp PCP - General Family Medicine 09/09/21 documented as of this encounter
--- OUTSIDE RECORDS SUMMARY | 2024-08-21 09:49 | XMS_ITS | Encounter Summary ---
Author Organization [facility] Address [address] [place] [address] Care Team Providers Care Head End Desizing Machine Operator Name Role Phone Elsewhere, Pcp Primary Care Provider Unavailabl e Encounter Details Date Type Department Care Team (Late st Contact Info) Description 06/11/2024 Clinical Communication Department of Oncology in [place], [place] [address] [place] [address] Amy Ward, M.S.W., L.I.C.S.W. [address] [place] [address] Social History Tobacco Use Types Packs/Day Years [...] declined 07/26/2021 How often do you attend druze or scientologist serv ices? Patient declined 07/26/2021 Do you belong to any clubs o r organizations such as druze groups, unions, fraternal or athletic groups, or [...] medical care, and heating? Patient declined 07/26/2021 [facility] - [...] for financial resources available that patient and automotive service writer talked about at our visit. Patient was included in an email for assistance from [employer] however states he did not receives the emails, confirmed it was sent to [employer]. Patient was also told to watch for [...] documented as of this encounter Care Teams Head End Desizing Machine Operator Relationship Specialty Start Date End Date Elsewhere, Pcp PCP - General Family Medicine 09/09/21 documented as of this encounter
--- OUTSIDE RECORDS SUMMARY | 2024-08-21 09:49 | XMS_ITS | Encounter Summary ---
Author Organization [facility] Address [address] [place] [address] Care Team Providers Care Econometrics Professor Name Role Phone Elsewhere, Pcp Primary Care Provider Unavailabl e Reason for Referral * Radiation Therapy (Routine) - Authorized Specialty Diagnoses / Procedures Referred By Misa dinero Referred To Contact Diagnoses Malignant Neoplasm Of Brain (HCC) Procedures Management Visit Genesis Aguilar M.D. [address] [place] [address] [facility] Region Referral ID Status Reason Start Date Expiration Date V isits Requested Visits Authorized [id number] Authorized 05/03/2024 05/03/2025 10 10 Reason for Visit * Radiation Therapy (Routine) - Authorized Specialty Diagnoses / Procedures Referred By Misa dinero Referred To Contact Diagnoses Malignant Neoplasm Of Brain (HCC) Procedures Management Visit Genesis Aguilar M.D. [address] [place] [address] [facility] Region Referral ID Status Reason Start Date Expiration Date V isits Requested Visits Authorized [id number] Authorized 05/03/2024 05/03/2025 10 10 Encounter Details Date Type Department Care Team (Latest Contact Info) Description 06/12/2024 9:44 AM CDT - 06/12/2024 12:55 PM CDT Hospital Encounter Department of Radiation Oncology in [place], [place] [address] [place] [phone] Genesis Aguilar M.D. [address] [place] [address] Malignant Neoplasm Of Brain (HCC) Social History [...] declined 07/26/2021 How often do you attend mormon or sikhism serv ices? Patient declined 07/26/2021 Do you belong to any clubs o r organizations such as mormon groups, unions, fraternal or athletic groups, or [...] Patient declined 07/26/2021 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
--- OUTSIDE RECORDS SUMMARY | 2024-08-21 09:49 | XMS_ITS | Encounter Summary ---
Author Organization [facility] Address [address] [place] [address] Care Team Providers Care Microfiche Camera Operator Name Role Phone Elsewhere, Pcp Primary Care Provider Unavailabl e Reason for Visit * Radiation Therapy (Routine) - Authorized Specialty Diagnoses / Procedures Referred By Misa dinero Referred To Contact Diagnoses Malignant Neoplasm Of Brain (HCC) Procedures Prior Auth Rad Tx [place] IMRT COMPLEX [place] GUIDANCE FOR LOC RAD TX [place] IMRT RADIOTHERAPY PLAN Genessi Aguilar M.D. [address] [place] [phone] [facility] Referral ID Status Reason Start Date Expiration Date V isits Requested Visits Authorized [id number] Authorized 05/15/2024 11/26/2024 30 30 Encounter Details Date Type Department Care Team (Latest Contact Info) Description 06/13/2024 9:40 AM CDT - 06/13/2024 11:59 PM CDT Hospital Encounter Department of Radiation Oncology in [place], [place] [address] [place] [phone] Genesis Aguilar M.D. [address] [place] [phone] Discharge Disposition: Home or Self Care Social [...] declined 07/26/2021 How often do you attend mandaeism or shinto serv ices? Patient declined 07/26/2021 Do you belong to any clubs o r organizations such as mandaeism groups, unions, fraternal or athletic groups, or [...] Patient declined 07/26/2021 [facility] - Occupational Stress Questionnaire Answer Date [...] documented as of this encounter Care Teams Microfiche Camera Operator Relationship Specialty Start Date End Date Elsewhere, Pcp PCP - General Family Medicine 09/09/21 documented as of this encounter
--- OUTSIDE RECORDS SUMMARY | 2024-08-21 09:50 | XMS_ITS | Encounter Summary ---
Author Organization [facility] Address [address] [place] [address] Care Team Providers Care Desizing Machine Operator Head End Name Role Phone Elsewhere, Pcp Primary Care Provider Unavailabl e Reason for Visit * Radiation Therapy (Routine) - Authorized Specialty Diagnoses / Procedures Referred By Misa dinero Referred To Contact Diagnoses Malignant Neoplasm Of Brain (HCC) Procedures Prior Auth Rad Tx [place] IMRT COMPLEX [place] GUIDANCE FOR [place] RAD TX [place] IMRT RADIOTHERAPY PLAN Genesis Aguilar M.D. [address] [place] [phone] [facility] Referral ID Status Reason Start Date Expiration Date V isits Requested Visits Authorized [id number] Authorized 05/15/2024 11/26/2024 30 30 Encounter Details Date Type Department Care Team (Latest Contact Info) Description 05/28/2024 9:33 AM CDT - 05/28/2024 11:59 PM CDT Hospital Encounter Department of Radiation Oncology in [place], [place] [address] [place] [phone] Genesis Aguilar M.D. [address] [place] [phone] Discharge Disposition: Home or Self Care Social [...] How often do you attend pentecostalism or baptist serv ices? Patient declined 07/26/2021 [...] Patient declined 07/26/2021 [facility] - Occupational Stress Questionnaire Answer Date [...] documented as of this encounter Care Teams Desizing Machine Operator Head End Relationship Specialty Start Date End Date Elsewhere, Pcp PCP - General Family Medicine 09/09/21 documented as of this encounter
--- OUTSIDE RECORDS SUMMARY | 2024-08-21 09:50 | XMS_ITS | Encounter Summary ---
Author Organization [facility] Address [address] [place] [address] Care Team Providers Care Multiple Effect Evaporator Operator Name Role Phone Elsewhere, Pcp Primary Care Provider Unavailabl e Reason for Referral * Radiation Therapy (Routine) - Authorized Specialty Diagnoses / Procedures Referred By Misa dinero Referred To Contact Diagnoses Malignant Neoplasm Of Brain (HCC) Procedures Management Visit Genesis Aguilar M.D. [address] [place] [address] [facility] Region Referral ID Status Reason Start Date Expiration Date V isits Requested Visits Authorized [id number] Authorized 05/03/2024 05/03/2025 10 10 Reason for Visit * Radiation Therapy (Routine) - Authorized Specialty Diagnoses / Procedures Referred By Misa dinero Referred To Contact Diagnoses Malignant Neoplasm Of Brain (HCC) Procedures Management Visit Genesis Aguilar M.D. [address] [place] [address] [facility] Region Referral ID Status Reason Start Date Expiration Date V isits Requested Visits Authorized [id number] Authorized 05/03/2024 05/03/2025 10 10 Encounter Details Date Type Department Care Team (Latest Contact Info) Description 05/21/2024 2:35 PM CDT - 05/21/2024 4:59 PM CDT Hospital Encounter Department of Radiation Oncology in [place], [place] [address] [place] [phone] Genesis Aguilar M.D. [address] [place] [address] Malignant Neoplasm Of Brain (HCC) Social History [...] How often do you attend sabianist or methodist serv ices? 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 Patient is now undergoing radiation therapy concurrent with Temodar. 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
--- OUTSIDE RECORDS SUMMARY | 2024-08-21 09:50 | XMS_ITS | Encounter Summary ---
Author Organization [facility] Address [address] [place] [address] Care Team Providers Care Meter/Relay Craftsman Name Role Phone Elsewhere, Pcp Primary Care Provider Unavailabl e Reason for Referral * Specialty Diagnoses / Procedures Referred By Misa dinero Referred To Contact Gaby Arrington APRN, C.N.P., D.N.P. [address] [place] [phone] [facility] Referral ID Status Reason Start Date Expiration Date Visits Re quested Visits Authorized Encounter Details Date Type Department Care Team (Latest Contact Info) Description 05/24/2024 9:46 AM CDT - 05/24/2024 2:34 PM CDT Hospital Encounter Department of Radiation Oncology in [place], [place] [address] [place] [phone] Genesis Aguilar M.D. [address] [place] [phone] Jessica Arevalo REndy [address] [place] [phone] Malignant Neoplasm Of Brain (HCC) Discharge [...] declined 07/26/2021 How often do you attend muslim or congregational serv ices? Patient declined 07/26/2021 Do you belong to any clubs o r organizations such as muslim groups, unions, fraternal or athletic groups, or [...] Body Mass Index 34.07 10/08/2021 3:55 PM INFORMATICS CONSULTANT documented in this encounter Medications at [...] mouth at bedtime. 04/29/2024 miscellaneous medical supply [facility] CPAP machine for home use at pressure: [...] (HCC) documented in this encounter Care Teams Meter/Relay Craftsman Relationship Specialty Start Date End Date Elsewhere, Pcp PCP - General Family Medicine 09/09/21 documented as of this encounter
--- OUTSIDE RECORDS SUMMARY | 2024-08-21 09:50 | XMS_ITS | Encounter Summary ---
Author Organization [facility] Address [address] [place] [address] Care Team Providers Care Groundwater Consultant Name Role Phone Elsewhere, Pcp Primary Care Provider Unavailabl e Reason for Visit * Radiation Therapy (Routine) - Authorized Specialty Diagnoses / Procedures Referred By Misa dinero Referred To Contact Diagnoses Malignant Neoplasm Of Brain (HCC) Procedures Prior Auth Rad Tx [place] IMRT COMPLEX [place] GUIDANCE FOR LOC RAD TX [place] IMRT RADIOTHERAPY PLAN Genesis Aguilar M.D. [address] [place] [phone] [facility] Referral ID Status Reason Start Date Expiration Date V isits Requested Visits Authorized [id number] Authorized 05/15/2024 11/26/2024 30 30 Encounter Details Date Type Department Care Team (Latest Contact Info) Description 05/22/2024 9:53 AM CDT - 05/22/2024 11:59 PM CDT Hospital Encounter Department of Radiation Oncology in [place], [place] [address] [place] [phone] Genesis Aguilar M.D. [address] [place] [phone] Discharge Disposition: Home or Self Care Social [...] How often do you attend gnosticism or oriental orthodox serv ices? Patient declined 07/26/2021 Do [...] Patient declined 07/26/2021 [facility] - Occupational Stress Questionnaire Answer [...] mouth at bedtime. 04/29/2024 miscellaneous medical supply [facility] CPAP machine for home use at [...] on filedocumented in this encounter Care Teams Groundwater Consultant Relationship Specialty Start Date End Date Elsewhere, Pcp PCP - General Family Medicine 09/09/21 documented as of this encounter
--- OUTSIDE RECORDS SUMMARY | 2024-08-21 09:50 | XMS_ITS | Encounter Summary ---
Author Organization [facility] Address [address] [place] [address] Care Team Providers Care Student Support Advisor Name Role Phone Elsewhere, Pcp Primary Care Provider Unavailabl e Reason for Referral * Outpatient (Routine) - Authorized Specialty Diagnoses / Procedures Referred By Contac t Referred To Contact Radiation Oncology Genesis Aguilar M.D. [address] [place] [phone] [facility] Region Referral ID Status Reason Start Date Expiration Date V isits Requested Visits Authorized [id number] Authorized 05/23/2024 11/22/2025 5 5 Reason for Visit * Outpatient (Routine) - Authorized Specialty Diagnoses / Procedures Referred By Misa dinero Referred To Contact Radiation Oncology Genesis Aguilar M.D. [address] [place] [phone] [facility] Region Referral ID Status Reason Start Date Expiration Date V isits Requested Visits Authorized [id number] Authorized 05/23/2024 11/22/2025 5 5 Encounter Details Date Type Department Care Team (Latest Contact Info) Description 05/23/2024 11:04 AM CDT - 05/23/2024 2:35 PM CDT Hospital Encounter Department of Radiation Oncology in [place], [place] [address] [place] [phone] Genesis Aguilar M.D. [address] [place] [phone] Reyna Christianson R.N. [address] [place] [phone] Malignant Neoplasm Of Brain (HCC) (Primary Dx) [...] medical care, and heating? Patient declined 07/26/2021 [facility]at ional Health - Occupational Stress [...] oxyCODONE (ROXICODONE) 5 mg immediate release tabletIndications:Ac [place] Pain Take 1 tablet (5 mg total) [...] to Ativan administration verified that patient had scoop driver. Patient verbalized that he would like [...] treatment and that he will need a scoop driver for all treatments. Understanding was verbalized. [...] mg documented in this encounter Care Teams Student Support Advisor Relationship Specialty Start Date End Date Elsewhere, Pcp PCP - General Family Medicine 09/09/21 documented as of this encounter
--- OUTSIDE RECORDS SUMMARY | 2024-08-21 09:50 | XMS_ITS | Encounter Summary ---
Author Organization [facility] Address [address] [place] [address] Care Team Providers Care Family Psychologist Name Role Phone Elsewhere, Pcp Primary Care Provider Unavailabl e Reason for Visit * Radiation Therapy (Routine) - Authorized Specialty Diagnoses / Procedures Referred By Misa dinero Referred To Contact Diagnoses Malignant Neoplasm Of Brain (HCC) Procedures Prior Auth Rad Tx [place] IMRT COMPLEX [place] GUIDANCE FOR LOC RAD TX [place] IMRT RADIOTHERAPY PLAN Genesis Aguilar M.D. [address] [place] [phone] [facility] Referral ID Status Reason Start Date Expiration Date V isits Requested Visits Authorized [id number] Authorized 05/15/2024 11/26/2024 30 30 Encounter Details Date Type Department Care Team (Latest Contact Info) Description 05/31/2024 10:13 AM CDT - 05/31/2024 11:59 PM CDT Hospital Encounter Department of Radiation Oncology in [place], [place] [address] [place] [phone] Genesis Aguilar M.D. [address] [place] [phone] Discharge Disposition: Home or Self Care Social [...] declined 07/26/2021 How often do you attend hoahaoism or caodaism serv ices? Patient declined 07/26/2021 Do you belong to any clubs o r organizations such as hoahaoism groups, unions, fraternal or athletic groups, or [...] medical care, and heating? Patient declined 07/26/2021 [facility] - Occupational Stress Questionnaire Answer [...] documented as of this encounter Care Teams Family Psychologist Relationship Specialty Start Date End Date Elsewhere, Pcp PCP - General Family Medicine 09/09/21 documented as of this encounter
--- OUTSIDE RECORDS SUMMARY | 2024-08-21 09:50 | XMS_ITS | Encounter Summary ---
Author Organization [facility] Address [address] [place] [address] Care Team Providers Care Psychiatric Nursing Assistant Name Role Phone Elsewhere, Pcp Primary Care Provider Unavailabl e Reason for Visit * Radiation Therapy (Routine) - Authorized Specialty Diagnoses / Procedures Referred By Misa dinero Referred To Contact Diagnoses Malignant Neoplasm Of Brain (HCC) Procedures Prior Auth Rad Tx [place] IMRT COMPLEX [place] GUIDANCE FOR LOC RAD TX [place] IMRT RADIOTHERAPY PLAN Genesis Aguilar M.D. [address] [place] [phone] [facility] Referral ID Status Reason Start Date Expiration Date V isits Requested Visits Authorized [id number] Authorized 05/15/2024 11/26/2024 30 30 Encounter Details Date Type Department Care Team (Latest Contact Info) Description 05/27/2024 9:45 AM CDT - 05/27/2024 11:59 PM CDT Hospital Encounter Department of Radiation Oncology in [place], [place] [address] [place] [phone] Genesis Aguilar M.D. [address] [place] [phone] Discharge Disposition: Home or Self Care Social [...] declined 07/26/2021 How often do you attend anabaptism or oriental orthodox serv ices? Patient declined 07/26/2021 Do you belong to any clubs o r organizations such as anabaptism groups, unions, fraternal or athletic groups, or [...] medical care, and heating? Patient declined 07/26/2021 [facility] - Occupational Stress [...] mouth at bedtime. 04/29/2024 miscellaneous medical supply [facility] CPAP machine for home use [...] documented as of this encounter Care Teams Psychiatric Nursing Assistant Relationship Specialty Start Date End Date Elsewhere, Pcp PCP - General Family Medicine 09/09/21 documented as of this encounter
--- OUTSIDE RECORDS SUMMARY | 2024-08-21 09:50 | XMS_ITS | Encounter Summary ---
Author Organization [facility] Address [address] [place] [address] Care Team Providers Care Rn Plastic Surgery Name Role Phone Elsewhere, Pcp Primary Care Provider Unavailabl e Reason for Referral * Radiation Therapy (Routine) - Authorized Specialty Diagnoses / Procedures Referred By Misa dinero Referred To Contact Diagnoses Malignant Neoplasm Of Brain (HCC) Procedures Management Visit Genesis Aguilar M.D. [address] [place] [address] [facility] Region Referral ID Status Reason Start Date Expiration Date V isits Requested Visits Authorized [id number] Authorized 05/03/2024 05/03/2025 10 10 Reason for Visit * Radiation Therapy (Routine) - Authorized Specialty Diagnoses / Procedures Referred By Misa dinero Referred To Contact Diagnoses Malignant Neoplasm Of Brain (HCC) Procedures Management Visit Genesis Aguilar M.D. [address] [place] [address] [facility] Region Referral ID Status Reason Start Date Expiration Date V isits Requested Visits Authorized [id number] Authorized 05/03/2024 05/03/2025 10 10 Encounter Details Date Type Department Care Team (Latest Contact Info) Description 05/29/2024 9:58 AM CDT - 05/29/2024 11:26 AM CDT Hospital Encounter Department of Radiation Oncology in [place], [place] [address] [place] [phone] Genesis Aguilar M.D. [address] [place] [address] Malignant Neoplasm Of Brain (HCC) Social History [...] declined 07/26/2021 How often do you attend anglican or jew serv ices? Patient declined 07/26/2021 Do you belong to any clubs o r organizations such as anglican groups, unions, fraternal or athletic groups, or [...] care, and heating? Patient declined 07/26/2021 [facility] - Occupational [...] Body Mass Index 34.73 10/08/2021 3:55 PM HELP DESK TECHNICIAN documented in this encounter Medications at [...] mouth at bedtime. 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 Patient is now undergoing radiation therapy concurrent with Temodar. 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
--- OUTSIDE RECORDS SUMMARY | 2024-08-21 09:50 | XMS_ITS | Encounter Summary ---
Author Organization [facility] Address [address] [place] [address] Care Team Providers Care Pewter Fabricator Name Role Phone Elsewhere, Pcp Primary Care Provider Unavailabl e Reason for Visit * Radiation Therapy (Routine) - Authorized Specialty Diagnoses / Procedures Referred By Misa dinero Referred To Contact Diagnoses Malignant Neoplasm Of Brain (HCC) Procedures Prior Auth Rad Tx [place] IMRT COMPLEX [place] GUIDANCE FOR LOC RAD [place] IMRT RADIOTHERAPY PLAN Genesis Aguilar M.D. [address] [place] [phone] [facility] Referral ID Status Reason Start Date Expiration Date V isits Requested Visits Authorized [id number] Authorized 05/15/2024 11/26/2024 30 30 Encounter Details Date Type Department Care Team (Latest Contact Info) Description 05/23/2024 9:51 AM CDT - 05/23/2024 11:03 AM CDT Hospital Encounter Department of Radiation Oncology in [place], [place] [address] [place] [phone] Genesis Aguilar M.D. [address] [place] [phone] Discharge Disposition: Home or Self Care Social [...] How often do you attend restorationism or nondenominational serv ices? Patient declined 07/26/2021 [...] medical care, and heating? Patient declined 07/26/2021 [facility] - Occupational Stress Questionnaire Answer Date Recorded [...] place to sleep or slept in a skilled nursing (including now)? Patient refused 07/26/2021 Nutrition Answer [...] at bedtime. 04/29/[address] [facility] CPAP machine for home [...] on filedocumented in this encounter Care Teams Pewter Fabricator Relationship Specialty Start Date End Date Elsewhere, Pcp PCP - General Family Medicine 09/09/21 documented as of this encounter
--- OUTSIDE RECORDS SUMMARY | 2024-08-21 09:50 | XMS_ITS | Encounter Summary ---
Author Organization [facility] Address [address] [place] [address] Care Team Providers Care Change Control Analyst Name Role Phone Elsewhere, Pcp Primary Care Provider Unavailabl e Reason for Visit * Radiation Therapy (Routine) - Authorized Specialty Diagnoses / Procedures Referred By Misa dinero Referred To Contact Diagnoses Malignant Neoplasm Of Brain (HCC) Procedures Prior Auth Rad Tx [place] IMRT COMPLEX [place] GUIDANCE FOR LOC RAD TX [place] IMRT RADIOTHERAPY PLAN Genesis Aguilar M.D. [address] [place] [phone] [facility] Referral ID Status Reason Start Date Expiration Date V isits Requested Visits Authorized [id number] Authorized 05/15/2024 11/26/2024 30 30 Encounter Details Date Type Department Care Team (Latest Contact Info) Description 06/03/2024 10:00 AM CDT - 06/03/2024 11:59 PM CDT Hospital Encounter Department of Radiation Oncology in [place], [place] [address] [place] [phone] Genesis Aguilar M.D. [address] [place] [phone] Discharge Disposition: Home or Self Care Social [...] How often do you attend methodist or anglican serv ices? Patient declined 07/26/2021 Do you [...] medical care, and heating? Patient declined 07/26/2021 [facility] - Occupational [...] mouth at bedtime. 04/29/2024 miscellaneous medical supply [facility] CPAP machine for home use at pressure: [...] documented as of this encounter Care Teams Change Control Analyst Relationship Specialty Start Date End Date Elsewhere, Pcp PCP - General Family Medicine 09/09/21 documented as of this encounter
--- OUTSIDE RECORDS SUMMARY | 2024-08-21 09:50 | XMS_ITS | Encounter Summary ---
Author Organization [facility] Address [address] [place] [address] Care Team Providers Care Glassware Selector Name Role Phone Elsewhere, Pcp Primary Care Provider Unavailabl e Reason for Referral * Outpatient (Routine) - Authorized Specialty Diagnoses / Procedures Referred By Contac t Referred To Contact Radiation Oncology Genesis Aguilar M.D. [address] [place] [phone] [facility] Region Referral ID Status Reason Start Date Expiration Date V isits Requested Visits Authorized [id number] Authorized 05/23/2024 11/22/2025 5 5 Reason for Visit * Outpatient (Routine) - Authorized Specialty Diagnoses / Procedures Referred By Misa dinero Referred To Contact Radiation Oncology Genesis Aguilar M.D. [address] [place] [phone] [facility] Region Referral ID Status Reason Start Date Expiration Date V isits Requested Visits Authorized [id number] Authorized 05/23/2024 11/22/2025 5 5 Encounter Details Date Type Department Care Team (Latest Contact Info) Description 05/27/2024 9:30 AM CDT - 05/27/2024 9:44 AM CDT Hospital Encounter Department of Radiation Oncology in [place], [place] [address] [place] [phone] Genesis Aguilar M.D. [address] [place] [phone] Jessica Arevalo R.N. [address] [place] [phone] Malignant Neoplasm Of Brain (HCC) (Primary Dx) [...] declined 07/26/2021 How often do you attend lutheran or episcopal serv ices? Patient declined 07/26/2021 Do you belong to any clubs o r organizations such as lutheran groups, unions, fraternal or athletic groups, or [...] medical care, and heating? Patient declined 07/26/2021 [facility] of Occupat ional Health - Occupational Stress [...] at bedtime. 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 Patient is now undergoing radiation therapy concurrent with Temodar. The patient reports that he brought blood pressure medication to today's appointment instead of hisAtivan. He is requesting dose of Ativan. Patient confirms that he has not had alcohol today. Patient confirms that he has a local company truck driver today to assist with transportation. [...] documented as of this encounter Care Teams Glassware Selector Relationship Specialty Start Date End Date Elsewhere, Pcp PCP - General Family Medicine 09/09/21 documented as of this encounter
--- OUTSIDE RECORDS SUMMARY | 2024-08-21 09:50 | XMS_ITS | Encounter Summary ---
Author Organization [facility] Address [address] [place] [address] Care Team Providers Care Wildland Fire Fighter Specialist Name Role Phone Elsewhere, Pcp Primary Care Provider Unavailabl e Reason for Visit * Radiation Therapy (Routine) - Authorized Specialty Diagnoses / Procedures Referred By Misa dinero Referred To Contact Diagnoses Malignant Neoplasm Of Brain (HCC) Procedures Prior Auth Rad Tx [place] IMRT COMPLEX [place] GUIDANCE FOR LOC RAD TX [place] IMRT RADIOTHERAPY PLAN Genesis Aguilar M.D. [address] [place] [phone] [facility] Referral ID Status Reason Start Date Expiration Date V isits Requested Visits Authorized [id number] Authorized 05/15/2024 11/26/2024 30 30 Encounter Details Date Type Department Care Team (Latest Contact Info) Description 06/04/2024 9:53 AM CDT Hospital Encounter Department of Radiation Oncology in [place], [place] [address] [place] [phone] Genesis Aguilar M.D. [address] [place] [phone] Discharge Disposition: Home or Self Care Social [...] declined 07/26/2021 How often do you attend taoist or orthodoxy serv ices? Patient declined 07/26/2021 Do you belong to any clubs o r organizations such as taoist groups, unions, fraternal or athletic groups, or [...] heating? Patient declined 07/26/2021 [facility] ional [facility] - Occupational [...] documented as of this encounter Care Teams Wildland Fire Fighter Specialist Relationship Specialty Start Date End Date Elsewhere, Pcp PCP - General Family Medicine 09/09/21 documented as of this encounter
--- OUTSIDE RECORDS SUMMARY | 2024-08-21 09:50 | XMS_ITS | Encounter Summary ---
Author Organization [facility] Address [address] [place] [address] Care Team Providers Care Imaging Center Manager Name Role Phone Elsewhere, Pcp Primary Care Provider Unavailabl e Reason for Referral * Outpatient (Routine) - Closed Specialty Diagnoses / Procedures Referred By Misa dinero Referred To Contact Social Work Diagnoses Malignant Neoplasm Of Brain (HCC) Mica Gonzalez M.D. [address] [place] [phone] [facility] Referral ID Status Reason Start Date Expiration Date Visits Re quested Visits Authorized [id number] Closed 05/08/2024 11/07/2025 1 1 Reason for Visit * Outpatient (Routine) - Closed Specialty Diagnoses / Procedures Referred By Misa dinero Referred To Contact Social Work Diagnoses Malignant Neoplasm Of Brain (HCC) Mica Gonzalez M.D. [address] [place] [phone] [facility] Referral ID Status Reason Start Date Expiration Date Visits Re quested Visits Authorized [id number] Closed 05/08/2024 11/07/2025 1 1 Encounter Details Date Type Department Care Team (Latest Contact Info) Description 05/28/2024 8:50 AM CDT - 05/28/2024 9:32 AM CDT Hospital Encounter Department of Radiation Oncology in [place], [place] [address] [place] [phone] Mica Gonzalez M.D. [address] [place] [phone] Amy Ward M.S.W., L.I.C.S.W. [address] [place] [phone] Counseling Phase Of Life Problem (Primary Dx); [...] How often do you attend jainism or hinduism serv ices? Patient declined 07/26/2021 [...] medical care, and heating? 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 Introduced Social Work and their role in the outpatient setting. Informed patient and family of Social Work's legal responsibility as a mandated contracts law professor and what that entails in regards to [...] He is concerned about finances, will send Retrophin to him, [employer] and refer him [...] counseling throughout his cancer center journey at [facility] was offered. he was accepting of [...] Assessment; Education provided about the role of Teacher Instrumental professionals here at [facility]; Supportive Counseling Regarding the experience of [...] documented as of this encounter Care Teams Imaging Center Manager Relationship Specialty Start Date End Date Elsewhere, Pcp PCP - General Family Medicine 09/09/21 documented as of this encounter
--- OUTSIDE RECORDS SUMMARY | 2024-08-21 09:50 | XMS_ITS | Encounter Summary ---
Author Organization [facility] Address [address] [place] [address] Care Team Providers Care Senior Analyst Developer Name Role Phone Elsewhere, Pcp Primary Care Provider Unavailabl e Reason for Visit * Radiation Therapy (Routine) - Authorized Specialty Diagnoses / Procedures Referred By Misa dinero Referred To Contact Diagnoses Malignant Neoplasm Of Brain (HCC) Procedures Prior Auth Rad Tx NE IMRT COMPLEX NE GUIDANCE FOR LOC RAD TX NE IMRT RADIOTHERAPY PLAN Genesis Aguilar M.D. [address] [place] [phone] [facility] Referral ID Status Reason Start Date Expiration Date V isits Requested Visits Authorized [id number] Authorized 05/15/2024 11/26/2024 30 30 Encounter Details Date Type Department Care Team (Latest Contact Info) Description 05/29/2024 9:58 AM CDT - 05/29/2024 11:59 PM CDT Hospital Encounter Department of Radiation Oncology in [place], [place] [address] [place] [phone] Genesis Aguilar M.D. [address] [place] [phone] Discharge Disposition: Home or Self Care Social [...] How often do you attend sabianism or taoism serv ices? Patient declined 07/26/2021 [...] medical care, and heating? Patient declined 07/26/2021 [facility] - Occupational Stress Questionnaire Answer [...] bedtime. 04/29/2024 miscellaneous medical supply [facility] CPAP machine for home use at pressure: [...] documented as of this encounter Care Teams Senior Analyst Developer Relationship Specialty Start Date End Date Elsewhere, Pcp PCP - General Family Medicine 09/09/21 documented as of this encounter
--- OUTSIDE RECORDS SUMMARY | 2024-08-21 09:50 | XMS_ITS | Encounter Summary ---
Author Organization [facility] Address [address] [place] [address] Care Team Providers Care Brim Shaper Name Role Phone Elsewhere, Pcp Primary Care Provider Unavailabl e Reason for Visit * Radiation Therapy (Routine) - Authorized Specialty Diagnoses / Procedures Referred By Misa dinero Referred To Contact Diagnoses Malignant Neoplasm Of Brain (HCC) Procedures Prior Auth Rad Tx [place] IMRT COMPLEX [place] GUIDANCE FOR LOC RAD TX [place] IMRT RADIOTHERAPY PLAN Genesis Aguilar M.D. [address] [place] [phone] [facility] Referral ID Status Reason Start Date Expiration Date V isits Requested Visits Authorized [id number] Authorized 05/15/2024 11/26/2024 30 30 Encounter Details Date Type Department Care Team (Latest Contact Info) Description 05/24/2024 9:46 AM CDT - 05/24/2024 11:59 PM CDT Hospital Encounter Department of Radiation Oncology in [place], [place] [address] [place] [phone] Genesis Aguilar M.D. [address] [place] [phone] Discharge Disposition: Home or Self Care Social [...] How often do you attend christianity or christian serv ices? Patient declined 07/26/2021 [...] Patient declined 07/26/2021 [facility] - Occupational [...] on filedocumented in this encounter Care Teams Brim Shaper Relationship Specialty Start Date End Date Elsewhere, Pcp PCP - General Family Medicine 09/09/21 documented as of this encounter
--- OUTSIDE RECORDS SUMMARY | 2024-08-21 09:51 | XMS_ITS | Encounter Summary ---
Author Organization [facility] Address [address] [place] [address] Care Team Providers Care Probation And Parole Officer Name Role Phone Elsewhere, Pcp Primary Care Provider Unavailabl e Reason for Visit * Radiation Therapy (Routine) - Authorized Specialty Diagnoses / Procedures Referred By Misa dinero Referred To Contact Diagnoses Malignant Neoplasm Of Brain (HCC) Procedures Prior Auth Rad Tx [place] IMRT COMPLEX [place] GUIDANCE FOR LOC RAD TX [place] IMRT RADIOTHERAPY PLAN Genesis Aguilar M.D. [address] [place] [phone] [facility] Referral ID Status Reason Start Date Expiration Date V isits Requested Visits Authorized [id number] Authorized 05/15/2024 11/26/2024 30 30 Encounter Details Date Type Department Care Team (Latest Contact Info) Description 05/21/2024 2:34 PM CDT Hospital Encounter Department of Radiation Oncology in [place], [place] [address] [place] [phone] Genesis Aguilar M.D. [address] [place] [phone] Discharge Disposition: Home or Self Care Social [...] How often do you attend restorationism or oriental orthodox serv ices? Patient declined [...] oxyCODONE (ROXICODONE) 5 mg immediate release tabletIndications:Ac [place] Pain Take 1 tablet (5 mg total) [...] on filedocumented in this encounter Care Teams Probation And Parole Officer Relationship Specialty Start Date End Date Elsewhere, Pcp PCP - General Family Medicine 09/09/21 documented as of this encounter
--- OUTSIDE RECORDS SUMMARY | 2024-08-21 09:51 | XMS_ITS | Encounter Summary ---
Author Organization [facility] Address [address] [place] [address] Care Team Providers Care Busboy Name Role Phone Elsewhere, Pcp Primary Care Provider Unavailabl e Reason for Visit * Radiation Therapy (Routine) - Authorized Specialty Diagnoses / Procedures Referred By Misa dinero Referred To Contact Diagnoses Malignant Neoplasm Of Brain (HCC) Procedures Prior Auth Rad Tx [place] IMRT COMPLEX [place] GUIDANCE FOR LOC RAD TX [place] IMRT RADIOTHERAPY PLAN Genesis Aguilar M.D. [address] [place] [phone] [facility] Referral ID Status Reason Start Date Expiration Date V isits Requested Visits Authorized [id number] Authorized 05/15/2024 11/26/2024 30 30 Encounter Details Date Type Department Care Team (Latest Contact Info) Description 05/20/2024 10:00 AM CDT - 05/20/2024 11:59 PM CDT Hospital Encounter Department of Radiation Oncology in [place], [place] [address] [place] [phone] Genesis Aguilar M.D. [address] [place] [phone] Discharge Disposition: Home or Self Care Social [...] declined 07/26/2021 How often do you attend buddhist or mandaeism serv ices? Patient declined 07/26/2021 Do you belong to any clubs o r organizations such as buddhist groups, unions, fraternal or athletic groups, or [...] care, and heating? Patient declined 07/26/2021 [facility] - Occupational Stress Questionnaire Answer Date [...] mouth at bedtime. 04/29/2024 miscellaneous medical supply [facility] CPAP machine for home use at pressure: [...] oxyCODONE (ROXICODONE) 5 mg immediate release tabletIndications:Ac [place] Pain Take 1 tablet (5 mg total) [...] on filedocumented in this encounter Care Teams Busboy Relationship Specialty Start Date End Date Elsewhere, Pcp PCP - General Family Medicine 09/09/21 documented as of this encounter
--- OUTSIDE RECORDS SUMMARY | 2024-08-21 09:51 | XMS_ITS | Clinical Summary ---
Author Organization [facility] Address [place], [place] [address] Care Team Providers Care Systems Engineering Manager Name Role Phone Rodrigo Hughes MD Primary Care Provider [phone] Trini Pearson RN Unavailable [phone] AlekseyMarlenia DO Unavailable [phone] Jacobo Flores NP Unavailable [phone] [...] Type Department Care Team Description 08/20/2024 Telephone [facility] [address] [place] [phone] Shannon Ryder DO Oncology Nurse Navigation 08/14/2024 Telephone [employer] [phone] Deonna Iverson Care Guide 08/14/2024 Telephone [facility] [address] [place] [address] Shannon Ryder DO Oncology Nurse Navigation 08/09/2024 10:00 AM CDT Office Visit [facility] [address] [facility] [address] [place] [phone] Maggy Gerardo MD Headache 08/09/2024 Travel 08/08/2024 Telephone [facility] [address] [facility] [address] [place] [address] Shannon Ryder DO Oncology Nurse Navigation 08/02/2024 Orders Only [facility] [address] [place] [address] Shannon Ryder DO <No scans attached> 08/02/2024 Refill [facility] [address] [place] [address] Shannon Ryder DO Refill Request 08/01/2024 Telephone [facility] [address] [place] [address] Shannon Ryder DO Oncology Nurse Navigation ([facility] ) 07/30/2024 Telephone [facility] [address] [place] [address] Shannon Ryder DO Oncology Nurse Navigation 07/26/2024 10:45 AM CDT Office Visit [facility] [address] [place] [address] Shannon Ryder DO Follow Up 07/26/2024 7:57 AM CDT - 07/26/2024 11:59 PM CDT Hospital Encounter [facility] [address] [place] [address] Shannon Ryder DO Glioblastoma (HC); Acute intractable headache, unspecified headache type; Cellulitis of right leg 07/26/2024 Telephone [facility] [address] [place] [address] Pretty Thorne MD 07/26/2024 Travel 07/22/2024 Telephone [facility] [address] [place] [address] Shannon Ryder DO Oncology Nurse Navigation 07/22/2024 Telephone [employer] [phone] Deonna Iverson 07/18/2024 Telephone [facility] [address] [place] [phone] Jacobo Flores NP Oncology Nurse Navigation (Labs) 07/16/2024 Orders Only [facility] Staff, Other Clinical 1 scan: (1-Ord) [facility] 07/11/2024 Telephone [facility] [address] [place] [address] Shannon Ryder DO Oncology Nurse Navigation 07/09/2024 Telephone [facility] [address] [place] [address] Shannon Ryder DO Oncology Nurse Navigation 07/03/2024 11:45 AM CDT Office Visit [facility] [address] [place] [address] Shannon Ryder DO Follow Up 07/03/2024 8:30 AM CDT Home Visit [employer] [phone] Deonna Iverson Care Guide (Visit) 07/03/2024 6:42 AM CDT - 07/03/2024 11:59 PM CDT Hospital Encounter [facility] [address] [place] [address] Shannon Ryder DO Glioblastoma (HC) 07/03/2024 Refill [facility] [address] [place] [phone] Shannon Ryder DO Refill Request 07/03/2024 Travel 06/28/2024 Telephone [facility] [address] [place] [phone] 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, supplemental manager Nurse Navigation 06/27/2024 Telephone [facility] [address] [place] [phone] Jacobo Flores, CHUCK Oncology Nurse Navigation 06/25/2024 Telephone [facility] [address] [facility] [address] [place] [phone] Lydia Curtis, [facility] Social Work Contact 06/21/2024 Telephone [facility] [address] [place] [phone] Jacobo Flores NP Oncology Nurse Navigation 06/20/2024 Telephone [facility] [address] [facility] [address] [place] [phone] Jacobo Flores, CHUCK Oncology Nurse Navigation 06/10/2024 1:00 PM CDT Office Visit [facility] [address] [facility] [address] [place] [phone] Jacobo Flores NP Follow Up (pressure headaches ) 06/10/2024 Telephone [facility] [address] [place] [address] Jacobo Flores NP Oncology Nurse Navigation 06/10/2024 Travel 06/09/2024 Telephone [facility] [address] [place] [phone] Sonu Brown MD Headache 06/04/2024 Telephone [facility] [address] [place] [phone] Shannon Rdyer, Oncology Nurse Navigation 05/27/2024 Telephone [facility] [address] [place] [phone] Shannon Ryder DO Medication Management 05/27/2024 [facility] [address] [place] [address] Pretty Thorne MD Prior Authorization (glycopyrronium tosylate (Qbrexza) 2.4 % towl EXCLUDED) 05/21/2024 11:15 AM CDT [facility] [address] [place] [address] Pretty Thorne MD Follow Up 05/21/2024 Travel 05/21/2024 Telephone [facility] [address] [place] [phone] Trini Pearson RN from Last 3 Months Immunizations Name Administration [...] Description 09/06/2024 10:30 AM CDT Office Visit [facility] [address] [place] [phone] Maggy Gerardo MD [address] [place] [address] 09/23/2024 8:00 AM CDT Appointment [facility] [address] [place] [address] 09/23/2024 9:45 AM CDT Office Visit [facility] [address] [place] [phone] Shannon Ryder, [address] [place] [address] Health Maintenance Due Date Last Done Comments [...] Completed 05/21/2012 Medical Devices Implanted Type Area Envelope Machine Adjuster Device Identifier Shelf Expiration Date Model / Serial / Lot Dura Neuro 3x3in Duragen Plusnon-Sut - [id number] Implanted:Qty: 1 on 04/19/2024 by Gerardo Her MD at [facility] Right: Cranium [employer] 01/24/2027 [id number] / / [id number] Screw Neuro 4mm Matrixneuro Slf Drill Titnm - [id number] Implanted:Qty: 12 on 04/19/2024 by Gerardo Her MD at [facility] Right: Cranium J And J Depuy CMF [id number] 4.01 / / Enrike Hole Cover Neuro 17mm Synthes Low Pro Titnm - [id number] Implanted:Qty: 3 on 04/19/2024 by Gerardo Her MD at [facility] Right: Cranium J And J Depuy CMF [id number] / / Procedures Procedure Name Priority Date/Time Associated Diagnosis Comments SCAN CORRESP-LABORATORY RESULTS 08/20/2024 3:05 PM CDT SCAN CORRESP-IMAGING 08/20/2024 3:05 PM CDT SCAN CORRESP-LABORATORY RESULTS 08/15/2024 2:24 PM CDT [...] Health Maintenance Results * SCAN CORRESP-LABORATORY RESULTS (08/20/2024 3:05 PM CDT) Only the most recent of11 resultswithin the time period is included. Narrative 08/20/2024 3:05 PM CDT Ordered by an unspecified provider. Other Clinical Staff OTHER * SCAN CORRESP-IMAGING (08/20/2024 3:05 PM CDT) Anatomical Region Laterality Modality Other Narrative 08/20/2024 3:05 PM CDT Ordered by an unspecified provider. Other Clinical Staff OTHER * TOXOPLASMA GONDII PCR BLOOD OR CSF (07/26/2024 12:56 PM CDT) Pathologist [facility] TOXOPLASMA GONDII PCR Negative Negative 08/04/2024 10:06 PM CDT [facility] ([facility]) Comment: No Toxoplasma gondii DNA detected. This test was developed and its performance characteristics determined by [facility]. It has not been cleared or approved by the U.S. Food and Drug Administration. The FDA has determined that such clearance or approval is not necessary. This test is used for clinical purposes. It should not be regarded as investigational or research. Other BLOOD SPECIMEN / Unknown Venipuncture / Unknown 07/26/2024 12:56 PM CDT 07/26/2024 1:02 PM CDT Narrative [facility] ([facility]) - 08/04/2024 10:06 PM CDT Performed at: ??[address] ??[id number] Paint Line Operator: Fauzia Harmon MD, Phone: ??[phone] Shannon Ryder DO SEND OUTS [facility] ([facility]) [address] [place] [address], * (ABNORMAL) CBC WITH AUTO DIFFERENTIAL (07/26/2024 12:56 PM CDT) [facility] WHITE BLOOD COUNT 6.6 4.5 - 11.0 thou/cu mm 07/26/2024 1:13 PM [facility] RED BLOOD COUNT 3.59(L) 4.30 - 5.90 mil/cu mm 07/26/2024 1:13 PM [facility] HEMOGLOBIN 13.3(L) 13.5 - 17.5 g/dL 07/26/2024 1:13 PM [facility] HEMATOCRIT 37.2 37.0 - 53.0 % 07/26/2024 1:13 PM [facility] MCV 104(H) 80 - 100 fL 07/26/2024 1:13 PM [facility] MCH 37.0(H) 26.0 - 34.0 pg 07/26/2024 1:13 PM [facility] MCHC 35.8 32.0 - 36.0 g/dL 07/26/2024 1:13 PM [facility] RDW 13.9 11.5 - 15.5 % 07/26/2024 1:13 PM [facility] PLATELET COUNT 156 140 - 440 thou/cu mm 07/26/2024 1:13 PM [facility] MPV 8.1 6.5 - 11.0 fL 07/26/2024 1:13 PM [facility] NRBC 0.3 % 07/26/2024 1:13 PM [facility] ABS NRBC 0.0 thou /cu mm 07/26/2024 1:13 PM [facility] % NEUT 80.2 % 07/26/2024 1:13 PM [facility] % LYMPH 9.4 % 07/26/2024 1:13 PM [facility] % MONO 5.9 % 07/26/2024 1:13 PM [facility] % EOS 0.2 % 07/26/2024 1:13 PM [facility] % BASO 0.2 % 07/26/2024 1:13 PM CDT [facility] % IMMATURE GRAN (METAS,MYELOS,MA OS) 4.1 % 07/26/2024 1:13 PM CDT [facility] ABSOLUTE NEUTROPHILS 5.3 1.7 - 7.0 thou/cu mm 07/26/2024 1:13 PM CDT [facility] ABSOLUTE LYMPHOCYTES 0.6(L) 0.9 - 2.9 thou/cu mm 07/26/2024 1:13 PM CDT [facility] ABSOLUTE MONOCYTES 0.4 <0.9 thou/cu mm 07/26/2024 1:13 PM CDT [facility] ABSOLUTE EOSINOPHILS 0.0 <0.5 thou/cu mm 07/26/2024 1:13 PM CDT [facility] ABSOLUTE BASOPHILS 0.0 <0.3 thou/cu mm 07/26/2024 1:13 PM CDT [facility] ABSOLUTE IMMATURE GRANULOCYTES(MET ,MYELOS,PROS) 0.3(H) <0.3 thou/cu mm 07/26/2024 1:[address] [facility] Blood BLOOD SPECIMEN / Unknown Venipuncture / Unknown 07/26/2024 12:56 PM CDT 07/26/2024 1:02 PM CDT Narrative [facility] - 07/26/2024 1:13 PM CDT This procedure was originally ordered at [facility]. This procedure was originally ordered at [facility]. Shannon Ryder DO HEMATOLOGY [facility] [address] [place] [address], * (ABNORMAL) COMP METABOLIC PANEL (07/26/2024 12:56 PM CDT) SODIUM 137 136 - 145 mmol/L 07/26/2024 1:44 PM CDT [facility] POTASSIUM 4.4 3.5 - 5.1 mmol/L 07/26/2024 1:44 PM T [facility] CHLORIDE 100 98 - 107 mmol/L 07/26/2024 1:44 PM T [facility] CO2,TOTAL 22 22 - 29 mmol/L 07/26/2024 1:44 PM T [facility] ANION GAP 15 5 - 18 07/26/2024 1:44 PM T [facility] GLUCOSE 110(H) 70 - 99 mg/dL 07/26/2024 1:44 PM T [facility] CALCIUM 9.5 8.6 - 10.0 mg/dL 07/26/2024 1:44 PM T [facility] BUN 25(H) 6 - 20 mg/dL 07/26/2024 1:44 PM [facility] CREATININE 0.70 0.70 - 1.20 mg/dL 07/26/2024 1:44 PM [facility] BUN/CREAT RATIO 36(H) 10 - 20 1:44 PM [facility] eGFR >90 >90 mL/min/1.7 3m2 07/26/2024 1:44 PM [facility] Comment:As of 2022, eG FR is calculated by the CKD-EPI creatinine equation without race adjustment. ??eGFR can be influenced by muscle mass, exercise, and diet. ??The reported eGFR is an estimation only and is only applicable if the renal function is stable. ALBUMIN 4.2 4.0 - 4.9 g/dL 07/26/2024 1:44 PM T [facility] PROTEIN,TOTAL 6.8 6.0 - 8.0 g/dL 07/26/2024 1:44 PM [facility] BILIRUBIN,TOTAL 0.3 0.0 - 1.2 mg/dL 07/26/2024 1:44 PM T [facility] ALK PHOSPHATASE 64 40 - 129 IU/L 07/26/2024 1:44 PM CDT [facility] ALT (SGPT) 25 10 - 50 IU/L 07/26/2024 1:44 PM CDT [facility] AST (SGOT) 21 10 - 50 IU/L 07/26/2024 1:44 PM CDT [facility] Blood BLOOD SPECIMEN / Unknown Venipuncture / Unknown 07/26/2024 12:56 PM CDT 07/26/2024 1:03 PM CDT Shannon Ryder DO CHEMISTRY [facility] [address] [place] [address], * MR HEAD BRAIN VENOGRAM WWO (07/26/2024 [...] and following intravenous contrast. MRV head: T1, fpdb-mt-wiadmh, T1 post-contrast MRV images of the head. [...] to 1.4 cm (series 6 image 67). Sckqg-hg-oifrmwll FLAIR hyperintensity within the anterior right temporal [...] to and followingintravenous contrast. MRV head: T1, ftmc-ca-bfuown, T1 post-contrast MRV images of the head. [...] to 1.4 cm (series 6 image 67). Pvmcb-xw-cqfarkkp FLAIR hyperintensity within the anterior right temporallobe, [...] and following intravenous contrast. MRV head: T1, bsha-tn-nzoplk, T1 post-contrast MRV images of the head. [...] to 1.4 cm (series 6 image 67). Yniqq-xd-xgsnbbls FLAIR hyperintensity within the anterior right temporal [...] For Patients: As a result of the 21st Century Cures Act, medical imagingexams and procedure reports are released immediately into your electronicmedical record. You may view this report before your referring provider.If you have questions, please contact your health care provider. Indication Glioblastoma. Technique MRI brain: Multiplanar multisequence MR imaging prior to and followingintravenous contrast. MRV head: T1, bsre-rg-uiueta, T1 post-contrast MRV images of the head. [...] to 1.4 cm (series 6 image 67). Htrab-eo-nmvherct FLAIR hyperintensity within the anterior right temporallobe, [...] @ 07/26/2024 10:39:33 AM (Electronically Signed) Shannon Hradenike DO MR * (ABNORMAL) LIPID PANEL W REFLEX MEASURED LDL (02/11/2014 8:12 AM CDT) CHOLESTEROL,TOTA L 257(H) 100 - 199 mg/dL [facility] 514(H) <150 mg/dL [facility] HDL CHOLESTEROL 54 >40 mg/dL [facility] CHOL/HDL RATIO 4.76(H) <4.50 [facility] NON-HDL CHOLESTEROL 203 Undefined mg/dL [facility] LDL CHOLESTEROL ?? Invalid LDL when Trig >400 reflexed to measured LDL. [facility] PATIENT STATUS Fasting [facility] Blood specimen (specimen) BLOOD SPECIMEN / Unknown 02/11/2014 8:12 AM CDT 02/11/2014 8:06 AM CDT Anali Bailey MD CHEMISTRY [facility] INTERNAL ZIP [address] [place] [address] from Last 3 Months or Most Recently Relevant to Health Maintenance Additional Health Concerns Infection Onset Date Last Indicated MRSA Comment:Order Contact Precaution Nares surveillance cultures needed to clear patient if <12 months since positive culture. If >12 months since positive culture, precautions can be discontinued if patient has no MRSA risk factors. 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 @ [facility], 07/22/19 @ [facility], Soft tissue infection of right stump 10/2017 exclusions for contact precaution discontinuation (if > 12 months since positive culture): resides in acute/intermediate teacher care, receiving hemodialysis, has chronic open wounds/skin damage, has long-term percutaneous indwelling medical devices Exclusions for nares collection (if <12 months since positive culture) include all of the previous exclusions plus patients on antibiotics 7 days prior to collection 11/28/2017 11/28/2017 Advance Directives Documents on File Type Date Recorded Patient Wad Lubricator Expl anation Healthcare Directive 04/25/2024 INVALID , MISSING PAGE, 04/25/2024 * Full Code (Latest Code Status on File) Date Activated Date Inactivated Comments 04/17/2024 8:30 AM 04/29/2024 4:53 PM Question Answer Comments Code Status Discussion: Reviewed Preferences * Full Code Date Activated Date Inactivated Comments 12/22/2016 11:17 PM 12/24/2016 8:25 PM Question Answer Comments Code Status Discussion: Per Existing Order Care Teams Systems Engineering Manager Relationship Specialty Start Date End Date Rodrigo Hughes MD [address] [place] [address] PCP - General Family Practice 05/01/24 Trini Pearson, RN [address] [address] Nurse Navigator - Oncology Registered Nurse 05/01/24 Shannon Ryder DO [address] [address] Neurooncology Neurology 05/01/24 Jacobo Flores NP [address] [address] Neurooncology Nurse Practitioner - Family 05/01/24
[2024-08-21] MEDS: VANCOMYCIN 2 GM/400 ML 2 GM/400 ML PIGGYBACK IVPB (10:34)
--- NOTE | 2024-08-21 10:50 | W.PM.H&PU ---
History & Physical Update History & Physical Update H&P Reviewed and patient assessed: No changes noted
--- NOTE | 2024-08-21 10:54 | P.ORPRC_ITS ---
Procedure Note Date of procedure: 08/21/24 Procedure: Procedure: PREOPERATIVE DIAGNOSIS: 1. Left elbow wound dehiscence 2. Septic left olecranon bursitis POSTOPERATIVE DIAGNOSIS: 1. Left elbow wound dehiscence 2. Septic left olecranon bursitis PROCEDURE: 1. Open left olecranon irrigation and debridement SURGEON: Harry Mathew MD. INDUSTRIAL CAFETERIA MANAGER: Daniela Slade P.A.-C. - An classroom assistant was critical for this case to aid in patient positioning, tissue retraction, limb manipulation/positioning, and closure. ANESTHESIA: General anesthetic SPECIMENS: None TOURNIQUET: 8 minutes at 250 mmHg ESTIMATED BLOOD LOSS: 10 mL COMPLICATIONS: None evident INDICATIONS: The patient is a pleasant 49-year-old male who developed septic left olecranon bursitis for which she underwent left olecranon irrigation, debridement, and bursectomy 5 days ago. Yesterday,He noted increasing drainage and dehiscence of his wound. Recommendation was subsequent made for return to the operating room for repeat irrigation and debridement and wound closure . Prior to surgery risks and benefits of procedure discussed with patient all questions were answered and informed consent was obtained. FINDINGS: Open left olecranon wound measuring approximately 6 cm in length with moderate serous drainage. No surrounding erythema Or purulent drainage. DESCRIPTION OF PROCEDURE: Following a thorough discussion of risks, benefits, and alternatives consent was obtained and the operative site was marked. The patient was brought to the operating room and placed supine on the operating table. Induction of anesthesia was undertaken. He was provided with a dose of IV vancomycin preoperatively. A tourniquet was placed patient's left upper arm and left upper extremities prepped and draped in usual sterile fashion. Surgical time-out was performed confirming patient identity, surgical site, and surgical procedure. Left arm was elevated exsanguinated Esmarch and tourniquet inflated 250 mmHg. skin edges were sharply debrided removing 2-3 mm of skin on each side of the wound. The olecranon bursa was then debrided using a large curette. The wound was then irrigated with 3 L of normal saline. The tourniquet was released. Hemostasis was achieved electrocautery and wound was irrigated with 500 mL of normal saline. Skin incision was then closed with 3-0 nylon vertical mattress sutures sterile dressing was applied followed by a long-arm posterior Splint with elbow in approximately 70? of flexion. Patient was then woken from anesthesia and transferred to the PACU in stable condition. PLAN: 1. Patient will be discharge to home on day of surgery. 2. Continue oral Bactrim twice daily for total of 14 days. 3. Ice and elevation for pain and swelling. 4. Tylenol for pain control. Oxycodone as needed for breakthrough pain. 5. Anticipate continuing elbow splint for total of 2 weeks. 6. Follow-up in Orthopedic Clinic in 1 week for wound check and 2 weeks for suture removal.
[2024-08-21] MEDS: LACTATED RINGERS 1000 ML 1,000 ML 100 ML IV (10:55)
--- NOTE | 2024-08-21 12:09 | W.ANESCHARGE ---
Anesthesia Charges Start Date/Time Anesthesia Start Date: 08/21/24 Anesthesia Start Time: 11:11 Stop Date/Time Anesthesia Stop Date: 08/21/24 Anesthesia Stop Time: 12:41
--- NOTE | 2024-08-21 12:45 | W.ANESCHARGE ---
Anesthesia Charges Start Date/Time Anesthesia Start Date: 08/21/24 Anesthesia Start Time: 11:11 Stop Date/Time Anesthesia Stop Date: 08/21/24 Anesthesia Stop Time: 12:41
[2024-08-21] MEDS: HYDROmorphone 0.5 mg/0.5 ml inj IVP (12:47)
[2024-08-21] MEDS: KETOROLAC 30 MG/ML inj IVP (13:02)
[2024-08-21] MEDS: OxyCODONE/APAP 5-325 TABLET PO (13:21)
== END 2024-08-21 14:37 | disposition home or self-care (01) ==
PROVIDERS: PCP Family Medicine; Visit Provider Orthopaedic Surgery
PROC: (CPT 24105; principal; 2024-08-21 11:30)
DX: M71.122 Other infective bursitis, left elbow (principal); T81.31XA Disruption of external operation (surgical) wound, not elsewhere classified, initial encounter
CPT/HCPCS: 24105; 01710; A9270; J0330; J1170; J1885; J2250; J2405; J2704; J3010; J3372; J3475; J3490; J7120

== ENCOUNTER 2024-08-26 10:10 | Emergency (ER) | payer OTHER, SELFPAY ==
[2024-08-26 10:26] VITALS: BP 135/87; PULSE 91; RESP 18; TEMP 35.9; O2SAT 95; BMI 34.9
--- NOTE | 2024-08-26 10:50 | CRLHL7_ITS ---
For Patients: As a result of the Century Cures Act, medical imaging exams and procedure reports are released immediately into your electronic medical record. You may view this report before your referring provider. If you have questions, please contact your health care provider. INDICATION: Shortness of breath TECHNIQUE: Chest 1 view COMPARISON: 04/08/2024 FINDINGS: Cardiovascular and mediastinum: Stable mediastinal contours. Lungs and pleural spaces: Lungs are clear. No sign of infiltrate or mass. No sign of pleural effusion. No pneumothorax. Bones and soft tissues: Spurring at the left AC joint. IMPRESSION: No acute findings. Dictated by Ez Galo MD @ 08/26/2024 11:35:01 AM (Electronically Signed)
--- OUTSIDE RECORDS SUMMARY | 2024-08-26 11:18 | XMS_ITS ---
Author Organization [facility] Address [address] [place] [address] Care Team Providers Care Pattern Marking Supervisor Name Role Phone Unavailable Unavailable Unavailable Surgery Details Not on file Complications Check Surgery Details section. Procedure Estimated Blood Loss Check Surgery Details section. Procedure Findings Check Surgery Details section. Procedure Specimens Taken Check Surgery Details section.
--- OUTSIDE RECORDS SUMMARY | 2024-08-26 11:18 | XMS_ITS | Data Portability ---
Author Organization [place] [facility] Address [address] [place] [address] Assessment No assessment recorded. Plan of Treatment Reminders Order Date Submit Date Provider Last Modified By Organization Details Last Modified Time Details Appointments ESTABLISH ED 10 2023 09:30A M Not available Not available Not available Lab None recorded. Referral None recorded. Procedures bladder scan (PROC) 2023 024 [facility], [address] [address] [facility] [address], [address], [place], [address], 07/30/2024 14:14:58 Surgeries None recorded. Imaging None recorded. Medication Orders solifenac in 10 mg tablet 2023 024 [id number], [address] [place], [phone], 07/30/2024 14:26:01 Patient TargetsNo targets recorded. Patient Instructions Encounter Date Encounter Id Patient Instructions Last Modified By Organization Details Last Modified Time 07/30/2024 [id number] will try solifenacin and rtc 6 weeks. [email or web address] Not available 07/30/2024 14:26:59 Reason for Referral None Reported. Results Created Date Observation Date Name Description Value Unit Range Abnormal Flag Note LastModifiedBy Organization Detail LastModifiedTime 07/30/20 24 07/30/2024 bladd er scan (PROC ) Volume (in mL) 16 ml Not Available [facility] [address], [place], [address], 07/22/2024 14:00:28 Result Notes None recorded. Problems Name Problem SNOMED Code Status Onset Date Resolution Date Notes Provider Name and Address Organization Details Recorded Time Urgent desire to urinate 33376034 Active 2023 Derrick Hodge MD [address] [place] [address],[address], [address], [facility] 14:25:07 Incontinence 62865573 Active 2023 Derrick Hodge MD [address] [place] [address],[address], [place], [address], [facility] 14:25:08 Problem Notes None recorded. Procedures Surgical History Date Name Laterality Status Provider Name and Address Organization Details Recorded Time Bladder Scan active Karie Almanzar [facility] 08/22/2024 16:38:30 Bladder Scan completed Derrick Hodge MD [address] [place] [address],[address], [place], [address], [facility] 07/30/2024 14:14:27 destruction of brain tumor completed Derrick Hodge MD [address] [place] [address],[address], [address], [facility] 07/30/2024 14:11:23 Imaging Results None recorded. Procedure [...] Not Available No t Available amoxicillin 875 mg-rahul rader clavulanate 125 mg tablet TAKE 1 TABLET [...] Updated DateTime 07/30/2024 180.34 cm 32.8 kg/m2 908703.21 g Derrick Hodge MD [address] [place] [address],[address], [address] [place] [address] Urology 07/30/2024 14:07:09 Social History Question Answer Notes LastModified by Organizat ion Details LastModified Time Tobacco Smoking Status Never Smoker Derrick Hodge MD [address] [place] [address],[address] Urology 07/30/2024 14:10:43 What Is Your Level Of Alcohol Consumption? Occasional [email or web address] Information not available 07/30/2024 What Is Your Level Of Caffeine Consumption? Occasional [email or web address] Information not available 07/30/2024 What Was The Date Of Your Most Recent Tobacco Screening? 07/30/2024 [email or web address] Information not available 07/30/2024 Have You Ever Been Counseled For Unhealthy Alcohol Use? No [email or web address] Information not available 07/30/2024 Do You Use Any Illicit Or Recreational Drugs? No [email or web address] Information not available 07/30/2024 Sex: Unknown Functional Status None recorded. Mental Status None recorded. Family History Relationship Description Onset Age of this Age Resolved Age Notes LastModified by Organization Details LastModified Time Father Hernia repair [email or web address] Not available 07/30 14:10:16 Medical History Condition Response Other N High Blood Pressure Y Kidney Stones N Depression Y Lung Disease N GERD/Acid Reflux N Diabetes N Sexually Transmitted Infection N Bleeding Disorder N Cancer Y High Cholesterol N Heart Disease N Past Encounters Encounter ID Performer Location Encounter Start Date Encounter Closed Date Diagnosis/Indication Diagnosis SNOMED-CT Code Diagnosis ICD10 Code [id number] Derrick Hodge MD [facility] [address] [place] [address] 07/30/2024 14:01:11 07/31/2024 10:57:56 Incontinence 73183333 R32 Urgent barbra maeve to urinate 89362655 R39.15 Health Concerns Section Related Observation LastModified [...] today. Derrick Hodge MD [address], [place], [address], [facility] 07/30/2024 14:27:20
--- OUTSIDE RECORDS SUMMARY | 2024-08-26 11:18 | XMS_ITS | Encounter Summary ---
Author Organization [facility] Address [address] [place] [address] Care Team Providers Care Special Effects Technician Name Role Phone Elsewhere, Pcp Primary Care Provider Unavailabl e Encounter Details Date Type Department Care Team (Latest Contact Info) Description 07/02/2024 9:38 AM CDT - 07/02/2024 11:59 PM CDT Hospital Encounter Department of Radiation Oncology in [place], [place] [address] [place] [phone] Genesis Aguilar M.D. [address] [place] [address] Discharge Disposition: Home or Self Care Social [...] declined 07/26/2021 How often do you attend quaker or pentecostal serv ices? Patient declined 07/26/2021 Do you belong to any clubs o r organizations such as quaker groups, unions, fraternal or athletic groups, or [...] Patient declined 07/26/2021 [facility] - [...] at bedtime. 04/29/2024 miscellaneous medical supply [facility] CPAP machine for home use at pressure: [...] documented as of this encounter Care Teams Special Effects Technician Relationship Specialty Start Date End Date Elsewhere, Pcp PCP - General Family Medicine 09/09/21 documented as of this encounter
--- OUTSIDE RECORDS SUMMARY | 2024-08-26 11:18 | XMS_ITS | Continuity of Care Document ---
Author Organization [facility], [facility] Address [address] [place] [address] [address] [place] [address] Assessment No assessment recorded. Plan of Treatment Reminders Order Date Submit Date Provider Last Modified By Organization Details Last Modified Time Details Appointments ESTABLISH ED 10 2023 09:30A M Not available Not available Not available Lab None recorded. Referral None recorded. Procedures bladder scan (PROC) 2023 024 [email or web address] [facility], [address] [place] [address], [address], [place], [address], 07/30/2024 14:14:58 Surgeries None recorded. Imaging None recorded. Medication Orders solifenac in 10 mg tablet 2023 024 [id number], [address] [place], [place], [phone], 07/30/2024 14:26:01 Patient TargetsNo targets recorded. Patient Instructions Encounter Date Encounter Id Patient Instructions Last Modified By Organization Details Last Modified Time 07/30/2024 [id number] will try solifenacin and rtc 6 weeks. Not available 07/30/2024 14:26:59 Reason for Referral None Reported. Results Created Date Observation Date Name Description Value Unit Range Abnormal Flag Note LastModifiedBy Organization Detail LastModifiedTime 07/30/20 24 07/30/2024 bladd er scan (PROC ) Volume (in mL) 16 ml Not Available [address], [place], [address], 07/22/2024 14:00:28 Result Notes None recorded. Problems Name Problem SNOMED Code Status Onset Date Resolution Date Notes Provider Name and Address Organization Details Recorded Time Urgent desire to urinate 27251940 Active 2023 Derrick Hodge MD [address] [place] [address],[address], [address], [facility] 14:25:07 Incontinence 84986249 Active 2023 Derrick Hodge MD [address] [place] [address],[address], [place], [address], [facility] 14:25:08 Problem Notes None recorded. Procedures Surgical History Date Name Laterality Status Provider Name and Address Organization Details Recorded Time Bladder Scan active Karie Almanzar [facility] 08/22/2024 16:38:30 Bladder Scan completed Derrick Hodge MD [address] [place] [address],[address], [place], [address], [facility] 07/30/2024 14:14:27 destruction of brain tumor completed Derrick Hodge MD [address] [place] [address],[facility] [address], [place], [address], [facility] 07/30/2024 14:11:23 Imaging Results None recorded. [...] Updated DateTime 07/30/2024 180.34 cm 32.8 kg/m2 097670.21 g Derrick Hodge MD [address] [place] [address],[place] [phone] [place] [address] Urology 07/30/2024 14:07:09 Social History Question Answer Notes LastModified by Organizat ion Details LastModified Time Tobacco Smoking Status Never Smoker Derrick Hodge MD [address] [place] [address],[place] [phone] [place] [address] Urology 07/30/2024 14:10:43 What Is Your Level Of Alcohol Consumption? Occasional [email or web address] Information not available 07/30/2024 What Is Your Level Of Caffeine Consumption? Occasional [email or web address] Information not available 07/30/2024 What Was The Date Of Your Most Recent Tobacco Screening? 07/30/2024 [email or web address] Information not available 07/30/2024 Have You Ever Been Counseled For Unhealthy Alcohol Use? No [email or web address] Information not available 07/30/2024 Do You Use Any Illicit Or Recreational Drugs? No Information not available 07/30/2024 Sex: Unknown Functional Status None recorded. Mental Status None recorded. Family History Relationship Description Onset Age of this Age Resolved Age Notes LastModified by Organization Details LastModified Time Father Hernia repair [email or web address] Not available 07/30 14:10:16 Medical History Condition Response Diabetes N Sexually Transmitted Infection N Other N Bleeding Disorder N High Blood Pressure Y Kidney Stones N Cancer Y Lung Disease N Depression Y High Cholesterol N GERD/Acid Reflux N Heart Disease N Past Encounters Encounter ID Performer Location Encounter Start Date Encounter Closed Date Diagnosis/Indication Diagnosis SNOMED-CT Code Diagnosis ICD10 Code [id number] Derrick Hodge MD [facility] [address] [place] [address] 07/30/2024 14:01:11 07/31/2024 10:57:56 Incontinence 48659487 R32 Urgent barbra maeve to urinate 46291439 R39.15 Health Concerns Section Related Observation LastModified [...] shows 16ml today. Derrick Hodge MD [address] [facility], [place], [address], [facility] 07/30/2024 14:27:20
--- OUTSIDE RECORDS SUMMARY | 2024-08-26 11:18 | XMS_ITS | Encounter Summary ---
Author Organization [facility] Address [address] [place] [address] Care Team Providers Care Diathermy Equipment Repairer Name Role Phone Elsewhere, Pcp Primary Care Provider Unavailabl e Encounter Details Date Type Department Care Team (Late st Contact Info) Description 07/02/2024 Documentation Department of Radiation Oncology in [place], [place] [address] [place] [address] Genesis Aguilar M.D. [address] [place] [phone] Social History Tobacco Use Types Packs/Day Years [...] declined 07/26/2021 How often do you attend episcopal or orthodox serv ices? Patient declined 07/26/2021 Do you belong to any clubs o r organizations such as episcopal groups, unions, fraternal or athletic groups, or [...] medical care, and heating? Patient declined 07/26/2021 [facility] - [facility] Questionnaire Answer [...] (cGy) First Treatment Last Treatment Elapsed Days [id number] 200 6000 6000 05/20/2024 07/02/2024 43 Course [...] R.N., 07/26/2024 4:06 PM CDT [facility] [address] [place] [address] documented in this encounter Plan of Treatment Not on file documented as of this encounter Visit Diagnoses Diagnosis Malignant Neoplasm Of Brain (HCC)- Primary documented in this encounter Additional Health Concerns Infection Onset Date Last Indicated Resolved Time Protective Environment 05/27/2024 05/27/202407/26 5:47 AM CDT documented as of this encounter Care Teams Diathermy Equipment Repairer Relationship Specialty Start Date End Date Elsewhere, Pcp PCP - General Family Medicine 09/09/21 documented as of this encounter
--- OUTSIDE RECORDS SUMMARY | 2024-08-26 11:18 | XMS_ITS ---
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 Past Plans Radiation Treatments * Plan Last Treated On Elapsed Days Fractions Treated Prescribed Fraction Dose Prescribed Total Dose [id number] 07/02/2024 43 30 of 30 200 cGy 6,000 cGy Reference Point Last Treated On Elapsed Days Session Dose Total Dose [id number] 07/02/2024 43 200 cGy 6,000 cGy
--- OUTSIDE RECORDS SUMMARY | 2024-08-26 11:18 | XMS_ITS | Referral Summary ---
Author Organization [facility] Address [address] [place] [address] Care Team Providers Care Parts Department Supervisor Name Role Phone Elsewhere, Pcp Primary Care Provider Unavailabl e Source Comments Patient records contain information from all sites at [facility]. For routine questions regarding patient records, call [phone] during business hours, M-F 8:00 AM - 5:00 PM Central Time. Record requests for emergency care only can be directed to [phone] at any time.[facility] Encounters Date Type Department Care Team Description 07/02/2024 Documentation Department of Radiation Oncology in [address] [address] Genesis Aguilar M.D. 07/02/2024 9:38 AM CDT - 07/02/2024 11:59 PM CDT Hospital Encounter Department of Radiation Oncology in [address] [address] Genesis Aguilar M.D. Discharge Disposition: Home or Self Care 07/01/2024 9:43 AM CDT - 07/01/2024 11:59 PM CDT Hospital Encounter Department of Radiation Oncology in [address] [address] Genesis Aguilar M.D. Discharge Disposition: Home or Self Care 06/28/2024 9:48 AM CDT - 06/28/2024 11:59 PM CDT Hospital Encounter Department of Radiation Oncology in [address] [address] Genesis Aguilar M.D. Discharge Disposition: Home or Self Care 06/27/2024 Documentation Department of Oncology in [place], [place] [address] [place] [address] Amy Ward M.STeo., L.I.C.S.W. 06/27/2024 9:28 AM CDT - 06/27/2024 11:59 PM CDT Hospital Encounter Department of Radiation Oncology in [address] [address] Genesis Aguilar M.D. Discharge Disposition: Home or Self Care 06/26/2024 9:34 AM CDT - 06/26/2024 2:36 PM CDT Hospital Encounter Department of Radiation Oncology in [address] [address] Genesis Aguilar M.D. Malignant Neoplasm Of Brain (HCC) 06/26/2024 9:33 AM CDT Hospital Encounter Department of Radiation Oncology in [address] [address] Genesis Aguilar M.D. Discharge Disposition: Home or Self Care 06/25/2024 9:41 AM CDT - 06/25/2024 11:59 PM CDT Hospital Encounter Department of Radiation Oncology in [address] [address] Genesis Aguilar M.D. Discharge Disposition: Home or Self Care 06/24/2024 9:41 AM CDT - 06/24/2024 11:59 PM CDT Hospital Encounter Department of Radiation Oncology in [address] [address] Genesis Aguilar M.D. Discharge Disposition: Home or Self Care 06/21/2024 9:28 AM CDT - 06/21/2024 11:59 PM CDT Hospital Encounter Department of Radiation Oncology in [address] [address] Genesis Aguilar M.D. Discharge Disposition: Home or Self Care 06/20/2024 9:36 AM CDT - 06/20/2024 11:59 PM CDT Hospital Encounter Department of Radiation Oncology in [address] [address] Genesis Aguilar M.D. Discharge Disposition: Home or Self Care 06/19/2024 9:14 AM CDT - 06/19/2024 2:50 PM CDT Hospital Encounter Department of Radiation Oncology in [address] [address] Genesis Aguilar M.D. Malignant Neoplasm Of Brain (HCC) 06/19/2024 9:14 AM CDT - 06/19/2024 11:59 PM CDT Hospital Encounter Department of Radiation Oncology in [address] [address] Genesis Aguilar M.D. Discharge Disposition: Home or Self Care 06/18/2024 9:49 AM CDT - 06/18/2024 11:59 PM CDT Hospital Encounter Department of Radiation Oncology in [address] [address] Genesis Aguilar M.D. Discharge Disposition: Home or Self Care 06/17/2024 9:40 AM CDT - 06/17/2024 11:59 PM CDT Hospital Encounter Department of Radiation Oncology in [address] [address] Genesis Aguilar M.D. Discharge Disposition: Home or Self Care 06/14/2024 9:43 AM CDT - 06/14/2024 11:59 PM CDT Hospital Encounter Department of Radiation Oncology in [address] [address] Genesis Aguilar M.D. Discharge Disposition: Home or Self Care 06/13/2024 9:40 AM CDT - 06/13/2024 11:59 PM CDT Hospital Encounter Department of Radiation Oncology in [address] [address] Genesis Aguilar M.D. Discharge Disposition: Home or Self Care 06/12/2024 9:44 AM CDT - 06/12/2024 12:55 PM CDT Hospital Encounter Department of Radiation Oncology in [address] [address] Genesis Aguilar M.D. Malignant Neoplasm Of Brain (HCC) 06/12/2024 9:44 AM CDT - 06/12/2024 11:59 PM CDT Hospital Encounter Department of Radiation Oncology in [address] [address] Genesis Aguilar M.D. Discharge Disposition: Home or Self Care 06/11/2024 Clinical Communication Department of Oncology in [place], [place] [address] [place] [address] Amy Ward, M.S.W., L.I.C.S.W. 06/11/2024 9:47 AM CDT - 06/11/2024 11:59 PM CDT Hospital Encounter Department of Radiation Oncology in [address] [address] Genesis Aguilar M.D. Discharge Disposition: Home or Self Care 06/10/2024 10:30 AM CDT - 06/10/2024 11:20 AM CDT Hospital Encounter Department of Radiation Oncology in [address] [address] Genesis Aguilar M.D. Grieman, Kari A, RJudyNJudy Malignant Neoplasm Of Brain (HCC) (Primary Dx) 06/07/2024 9:46 AM CDT - 06/07/2024 11:59 PM CDT Hospital Encounter Department of Radiation Oncology in [address] [address] Genesis Aguilar M.D. Discharge Disposition: Home or Self Care 06/06/2024 9:56 AM CDT - 06/06/2024 11:59 PM CDT Hospital Encounter Department of Radiation Oncology in [address] [address] Genesis Aguilar M.D. Discharge Disposition: Home or Self Care 06/05/2024 9:43 AM CDT - 06/05/2024 11:59 PM CDT Hospital Encounter Department of Radiation Oncology in [address] [address] Genesis Aguilar M.D. Discharge Disposition: Home or Self Care 06/04/2024 9:54 AM CDT - 06/04/2024 6:14 PM CDT Hospital Encounter Department of Radiation Oncology in [address] [address] Jeovanny Khalil M.D. Malignant Neoplasm Of Brain (HCC) 06/04/2024 9:53 AM CDT Hospital Encounter Department of Radiation Oncology in [address] [address] Genesis Aguilar M.D. Discharge Disposition: Home or Self Care 06/03/2024 10:00 AM CDT - 06/03/2024 11:59 PM CDT Hospital Encounter Department of Radiation Oncology in [address] [address] Genesis Aguilar M.D. Discharge Disposition: Home or Self Care 05/31/2024 10:13 AM CDT - 05/31/2024 11:59 PM CDT Hospital Encounter Department of Radiation Oncology in [address] [address] Genseis Aguilar M.D. Discharge Disposition: Home or Self Care 05/29/2024 9:58 AM CDT - 05/29/2024 11:26 AM CDT Hospital Encounter Department of Radiation Oncology in [address] [address] Genesis Aguilar M.D. Malignant Neoplasm Of Brain (HCC) 05/29/2024 9:58 AM CDT - 05/29/2024 11:59 PM CDT Hospital Encounter Department of Radiation Oncology in [address] [address] Genesis Aguilar M.D. Discharge Disposition: Home or Self Care 05/28/2024 8:50 AM CDT - 05/28/2024 9:32 AM CDT Hospital Encounter Department of Radiation Oncology in [address] [address] Mica Gonzalez M.D. Wacholz, Abigail M, M.S.W., L.I.C.S.W. Counseling Phase Of Life Problem (Primary Dx); Malignant Neoplasm Of Brain (HCC) Discharge Disposition: Home or Self Care 05/28/2024 9:33 AM CDT - 05/28/2024 11:59 PM CDT Hospital Encounter Department of Radiation Oncology in [address] [address] Genesis Aguilar M.D. Discharge Disposition: Home or Self Care 05/27/2024 9:30 AM CDT - 05/27/2024 9:44 AM CDT Hospital Encounter Department of Radiation Oncology in [address] [address] Genesis Aguilar M.D. Grieman, Kari A, R.NJudy Malignant Neoplasm Of Brain (HCC) (Primary Dx) 05/27/2024 9:45 AM CDT - 05/27/2024 11:59 PM CDT Hospital Encounter Department of Radiation Oncology in [place], [place] [address] [place] [address] Genesis Aguilar M.D. 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 Patient declined 07/26/2021 [...] medical care, and heating? Patient declined 07/26/2021 [facility] [place] of Occupat ional Health - Occupational Stress [...] DT Respiratory Rate 18 10/08/2021 4:40 PM ALUMINUM SHEET CUTTER Oxygen Saturation 96% 10/08/2021 4:40 PM ALUMINUM SHEET CUTTER Inhaled Oxygen Concentration - - Weight 115 kg (254 lb 10.1 oz) 06/26/2024 10:32 AM CDT Height 177.8 cm (5' 10) 10/08/2021 3:55 PM ALUMINUM SHEET CUTTER Body Mass Index 36.54 10/08/2021 3:55 PM ALUMINUM SHEET CUTTER Plan of Treatment Not on file Medical Devices Implanted Type Area Hourly Team Members Device Identifier Shelf Expiration Date Model / Serial / Lot Clp Apr Lgs Intnl 9.0 - [id number] Implanted:Qty : 1 on 09/09/2021 by Sanford Mena M.D. at [facility] Hardware e.g. pins/screws/ rods Right: Leg Ethicon [id number] 05/26/2026 MCS20 / / [id number] Clp Apr [facility] - [id number] Implanted:Qty : 1 on 09/09/2021 by Sanford Mena M.D. at [facility] Hardware e.g. pins/screws/ rods Right: Leg Ethicon [id number] 05/26/2026 MSM20 / / [id number] Explanted Type Area Hourly Team Members Device Identifier Shelf Expiration Date Model / Serial / Lot Cmnt Bn Hi Visc Pmma 40 - [id number] Implanted:Qty: 1 on 11/15/2019 by Maude Shah M.D. at [facility] Explanted:Qty: 1 on 12/03/2019 by Sanford Mena M.D. 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) BASIC METABOLIC PANEL, S/P Routine 11/19/2019 7:46 AM ALUMINUM SHEET CUTTER from Last 3 Months or Most Recently [...] Elapsed Days 43 GARSIA ARIA Reference Point [id number] GARSIA ARIA Dosage Given to Date cGy 6000 GARSIA ARIA Plan ID [id number] GARSIA ARIA Fractions Treated to Date 30 GARSIA ARIA Planned Total Fractions 30 GARSIA [place] Prescribed Dose Per Fraction 200 GARSIA ARIA Prescription Dose in cGy 6000 GARSIA ARIA Plan Primary Reference Point [id number] GARSIA ARIA 07/02/2024 10:0 8 AM CDT Provider Not In System RADIATION ONCOLOG Y ORDERABLES Performing Organization Address City/State/[facility] Co de Phone Number ADY EAST na * Aria Daily Treatment Information (07/02/2024 10:08 AM CDT) Only the most recent of25 resultswithin the time period is included. Course ID 1xBrain GARSIA ARIA Course Start Date 4 08:57 CDT GARSIA ARIA First Treatment Date 4 10:26 CDT GARSIA ARIA Last Treatment Date 4 10:08 CDT GARSIA ARIA Treatment Elapsed Days 43 GARSIA ARIA Reference Point [id number] GARSIA ARIA Dosage Given to Date cGy 6000 GARSIA ARIA Session Dosage Given 200 GARSIA ARIA Plan ID [id number] GARSIA ARIA Fractions Treated to Date 30 GARSIA ARIA Planned Total Fractions 30 GARSIA ARIA Prescribed Dose Per Fraction 200 GARSIA ARIA Prescription Dose in cGy 6000 GARSIA ARIA Plan Primary Reference Point [id number] GARSIA ARIA 07/02/2024 10:0 8 AM CDT Provider Not In System RADIATION ONCOLOG Y ORDERABLES Performing Organization Address City/[facility] Co de Phone Number ADY EAST na from Last 3 Months Advance Directives For more information, please contact: [phone] * Full Code (Latest Code Status on [...] Answer Comments Full Code: Discussed Care Teams Parts Department Supervisor Relationship Specialty Start Date End Date Elsewhere, Pcp PCP - General Family Medicine 09/09/21
--- OUTSIDE RECORDS SUMMARY | 2024-08-26 11:18 | XMS_ITS | Clinical Summary ---
Author Organization [facility] Address [address] [place] [address] Care Team Providers Care Appliance Worker Name Role Phone Elsewhere, Pcp Primary Care Provider Unavailabl e Source Comments Patient records contain information from all sites at [facility]. For routine questions regarding patient records, call [phone] during business hours, M-F 8:00 AM - 5:00 PM Central Time. Record requests for emergency care only can be directed to [phone] at any time.[facility] Allergies No known active allergies Medications Medication [...] NOT SWALLOW. 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 Discharge Disposition: Home or Self Care 07/02/2024 Documentation Department of Radiation Oncology in [address] [address] Genesis Aguilar M.D. 07/01/2024 9:43 AM CDT - 07/01/2024 11:59 PM CDT Hospital Encounter Department of Radiation Oncology in [address] [address] Genesis Aguilar M.D. Discharge Disposition: Home or Self Care 06/28/2024 9:48 AM CDT - 06/28/2024 11:59 PM CDT Hospital Encounter Department of Radiation Oncology in [address] [address] Genesis Aguilar M.D. Discharge Disposition: Home or Self Care 06/27/2024 9:28 AM CDT - 06/27/2024 11:59 PM CDT Hospital Encounter Department of Radiation Oncology in [address] [address] Genesis Aguilar M.D. Discharge Disposition: Home or Self Care 06/27/2024 Documentation Department of Oncology in [place], [place] [address] [place] [address] Amy Ward M.S.W., L.I.C.S.W. 06/26/2024 9:34 AM CDT - 06/26/2024 2:36 PM CDT Hospital Encounter Department of Radiation Oncology in [address] [address] Genesis Aguilar M.D. Malignant Neoplasm Of Brain (HCC) 06/26/2024 9:33 AM CDT Hospital Encounter Department of Radiation Oncology in [address] [address] Genesis Aguilar M.D. Discharge Disposition: Home or Self Care 06/25/2024 9:41 AM CDT - 06/25/2024 11:59 PM CDT Hospital Encounter Department of Radiation Oncology in [address] [address] Genesis Aguilar M.D. Discharge Disposition: Home or Self Care 06/24/2024 9:41 AM CDT - 06/24/2024 11:59 PM CDT Hospital Encounter Department of Radiation Oncology in [address] [address] Genesis Aguilar M.D. Discharge Disposition: Home or Self Care 06/21/2024 9:28 AM CDT - 06/21/2024 11:59 PM CDT Hospital Encounter Department of Radiation Oncology in [address] [address] Genesis Aguialr M.D. Discharge Disposition: Home or Self Care 06/20/2024 9:36 AM CDT - 06/20/2024 11:59 PM CDT Hospital Encounter Department of Radiation Oncology in [address] [address] Genesis Aguilar M.D. Discharge Disposition: Home or Self Care 06/19/2024 9:14 AM CDT - 06/19/2024 2:50 PM CDT Hospital Encounter Department of Radiation Oncology in [address] [address] Genesis Aguilar M.D. Malignant Neoplasm Of Brain (HCC) 06/19/2024 9:14 AM CDT - 06/19/2024 11:59 PM CDT Hospital Encounter Department of Radiation Oncology in [address] [address] Genesis Aguilar M.D. Discharge Disposition: Home or Self Care 06/18/2024 9:49 AM CDT - 06/18/2024 11:59 PM CDT Hospital Encounter Department of Radiation Oncology in [address] [address] Genesis Aguilar M.D. Discharge Disposition: Home or Self Care 06/17/2024 9:40 AM CDT - 06/17/2024 11:59 PM CDT Hospital Encounter Department of Radiation Oncology in [address] [address] Genesis Aguilar M.D. Discharge Disposition: Home or Self Care 06/14/2024 9:43 AM CDT - 06/14/2024 11:59 PM CDT Hospital Encounter Department of Radiation Oncology in [address] [address] Genesis Aguilar M.D. Discharge Disposition: Home or Self Care 06/13/2024 9:40 AM CDT - 06/13/2024 11:59 PM CDT Hospital Encounter Department of Radiation Oncology in [address] [address] Genesis Aguilar M.D. Discharge Disposition: Home or Self Care 06/12/2024 9:44 AM CDT - 06/12/2024 12:55 PM CDT Hospital Encounter Department of Radiation Oncology in [address] [address] Genesis Aguilar M.D. Malignant Neoplasm Of Brain (HCC) 06/12/2024 9:44 AM CDT - 06/12/2024 11:59 PM CDT Hospital Encounter Department of Radiation Oncology in [address] [address] Genesis Aguilar M.D. Discharge Disposition: Home or Self Care 06/11/2024 9:47 AM CDT - 06/11/2024 11:59 PM CDT Hospital Encounter Department of Radiation Oncology in [address] [address] Genesis Aguilar M.D. Discharge Disposition: Home or Self Care 06/11/2024 Clinical Communication Department of Oncology in [place] [address] [place] [address] Amy Ward, M.S.W., L.I.C.S.W. 06/10/2024 10:30 AM CDT - 06/10/2024 11:20 AM CDT Hospital Encounter Department of Radiation Oncology in [address] [address] Genesis Aguilar M.D. Grieman, Kari A, RJudyNJudy Malignant Neoplasm Of Brain (HCC) (Primary Dx) 06/07/2024 9:46 AM CDT - 06/07/2024 11:59 PM CDT Hospital Encounter Department of Radiation Oncology in [address] [address] Genesis Aguilar M.D. Discharge Disposition: Home or Self Care 06/06/2024 9:56 AM CDT - 06/06/2024 11:59 PM CDT Hospital Encounter Department of Radiation Oncology in [address] [address] Genesis Aguilar M.D. Discharge Disposition: Home or Self Care 06/05/2024 9:43 AM CDT - 06/05/2024 11:59 PM CDT Hospital Encounter Department of Radiation Oncology in [address] [address] Genesis Aguilar M.D. Discharge Disposition: Home or Self Care 06/04/2024 9:54 AM CDT - 06/04/2024 6:14 PM CDT Hospital Encounter Department of Radiation Oncology in [address] [address] Jeovanny Khalil M.D. Malignant Neoplasm Of Brain (HCC) 06/04/2024 9:53 AM CDT Hospital Encounter Department of Radiation Oncology in [address] [address] Genesis Aguilar M.D. Discharge Disposition: Home or Self Care 06/03/2024 10:00 AM CDT - 06/03/2024 11:59 PM CDT Hospital Encounter Department of Radiation Oncology in [address] [address] Genesis Aguilar M.D. Discharge Disposition: Home or Self Care 05/31/2024 10:13 AM CDT - 05/31/2024 11:59 PM CDT Hospital Encounter Department of Radiation Oncology in [address] [address] Genesis Aguilar M.D. Discharge Disposition: Home or Self Care 05/29/2024 9:58 AM CDT - 05/29/2024 11:26 AM CDT Hospital Encounter Department of Radiation Oncology in [address] [address] Genesis Aguilar M.D. Malignant Neoplasm Of Brain (HCC) 05/29/2024 9:58 AM CDT - 05/29/2024 11:59 PM CDT Hospital Encounter Department of Radiation Oncology in [address] [address] Genesis Aguilar M.D. Discharge Disposition: Home or Self Care 05/28/2024 9:33 AM CDT - 05/28/2024 11:59 PM CDT Hospital Encounter Department of Radiation Oncology in [address] [address] Genesis Aguilar M.D. Discharge Disposition: Home or Self Care 05/28/2024 8:50 AM CDT - 05/28/2024 9:32 AM CDT Hospital Encounter Department of Radiation Oncology in [address] [address] Mica Gonzalez M.D. Wacholz, Abigail M, M.S.W., L.I.C.S.W. Counseling Phase Of Life Problem (Primary Dx); Malignant Neoplasm Of Brain (HCC) Discharge Disposition: Home or Self Care 05/27/2024 9:45 AM CDT - 05/27/2024 11:59 PM CDT Hospital Encounter Department of Radiation Oncology in [address] [address] Genesis Aguilar M.D. Discharge Disposition: Home or Self Care 05/27/2024 9:30 AM CDT - 05/27/2024 9:44 AM CDT Hospital Encounter Department of Radiation Oncology in [address] [address] Genesis Aguilar M.D. Jessica Arevalo R.N. Malignant Neoplasm Of Brain (HCC) (Primary [...] How often do you attend zoroastrianism or buddhist serv ices? Patient declined 07/26/2021 [...] medical care, and heating? Patient declined 07/26/2021 [facility] [place] of Occupat ional Health - Occupational Stress [...] DT Respiratory Rate 18 10/08/2021 4:40 PM UNDERWRITER MORTGAGE LOAN Oxygen Saturation 96% 10/08/2021 4:40 PM UNDERWRITER MORTGAGE LOAN Inhaled Oxygen Concentration - - Weight 115 kg (254 lb 10.1 oz) 06/26/2024 10:32 AM CDT Height 177.8 cm (5' 10) 10/08/2021 3:55 PM UNDERWRITER MORTGAGE LOAN Body Mass Index 36.54 10/08/2021 3:55 PM UNDERWRITER MORTGAGE LOAN Plan of Treatment Health Maintenance Due Date [...] this topic Medical Devices Implanted Type Area Maintenance Mechanic 2Nd Shift Device Identifier Shelf Expiration Date Model / Serial / Lot Clp Apr s Intnl 9.0 - [id number] Implanted:Qty : 1 on 09/09/2021 by Sanford Mena M.D. at [facility] Hardware e.g. pins/screws/ rods Right: Leg Ethicon [id number] 05/26/2026 MCS20 / / [id number] Clp Apr [facility] Intnl [facility] 9.75 - [id number] Implanted:Qty : 1 on 09/09/2021 by Sanford Mena M.D. at [facility] Hardware e.g. pins/screws/ rods Right: Leg Ethicon [id number] 05/26/2026 MSM20 / / [id number] Explanted Type Area Maintenance Mechanic 2Nd Shift Device Identifier Shelf Expiration Date Model / Serial / Lot Cmnt Bn Hi Visc Pmma 40 - [id number] Implanted:Qty: 1 on 11/15/2019 by Maude Shah M.D. at [facility] Explanted:Qty: 1 on 12/03/2019 by Sanford Mena M.D. 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) BASIC METABOLIC PANEL, S/P Routine 11/19/2019 7:46 AM UNDERWRITER MORTGAGE LOAN from Last 3 Months or Most Recently [...] Elapsed Days 43 GARSIA ARIA Reference Point [id number] GARSIA ARIA Dosage Given to Date cGy 6000 GARSIA ARIA Plan ID [id number] GARSIA ARIA Fractions Treated to Date 30 GARSIA ARIA Planned Total Fractions 30 GARSIA ARIA Prescribed Dose Per Fraction 200 GARSIA ARIA Prescription Dose in cGy 6000 GARSIA ARIA Plan Primary Reference Point [id number] GARSIA ARIA 07/02/2024 10:0 8 AM CDT Provider Not In System RADIATION ONCOLOG Y ORDERABLES GARSIA KITA na * Aria Daily Treatment Information (07/02/2024 10:08 AM CDT) Only the most recent of25 resultswithin the time period is included. Course ID 1xBrain GARSIA ARIA Course Start Date 4 08:57 CD[facility] First Treatment Date 4 10:26 CDT GARSIA ARIA Last Treatment Date 4 10:08 CDT GARSIA ARIA Treatment Elapsed Days 43 GARSIA ARIA Reference Point [id number] GARSIA ARIA Dosage Given to Date cGy 6000 GARSIA ARIA Session Dosage Given 200 GARSIA ARIA Plan ID [id number] GARSIA ARIA Fractions Treated to Date 30 GARSIA ARIA Planned Total Fractions 30 GARSIA ARIA Prescribed Dose Per Fraction 200 GARSIA ARIA Prescription Dose in cGy 6000 GARSIA ARIA Plan Primary Reference Point [id number] GARSIA ARIA 07/02/2024 10:0 8 AM CDT Provider Not In System RADIATION ONCOLOG Y ORDERABLES [facility]Y [facility] na from Last 3 Months Advance Directives For more information, please contact: [phone] * Full Code (Latest Code Status on [...] Answer Comments Full Code: Discussed Care Teams Appliance Worker Relationship Specialty Start Date End Date Elsewhere, Pcp PCP - General Family Medicine 09/09/21
--- OUTSIDE RECORDS SUMMARY | 2024-08-26 11:19 | XMS_ITS | Encounter Summary ---
Author Organization [facility] Address [address] [place] [address] Care Team Providers Care Call Out Clerk Name Role Phone Elsewhere, Pcp Primary Care Provider Unavailabl e Reason for Visit * Radiation Therapy (Routine) - Authorized Specialty Diagnoses / Procedures Referred By Misa dinero Referred To Contact Diagnoses Malignant Neoplasm Of Brain (HCC) Procedures Prior Auth Rad Tx WV IMRT COMPLEX W[place] GUIDANCE FOR LOC RAD TX WV IMRT RADIOTHERAPY PLAN Genesis Aguilar M.D. [address] [place] [phone] [facility] Referral ID Status Reason Start Date Expiration Date V isits Requested Visits Authorized [id number] Authorized 05/15/2024 11/26/2024 30 30 Encounter Details Date Type Department Care Team (Latest Contact Info) Description 06/27/2024 9:28 AM CDT - 06/27/2024 11:59 PM CDT Hospital Encounter Department of Radiation Oncology in [place], [place] [address] [place] [phone] Genesis Aguilar M.D. [address] [place] [phone] Discharge Disposition: Home or Self Care Social [...] How often do you attend holiness or taoism serv ices? Patient declined 07/26/2021 [...] medical care, and heating? Patient declined 07/26/2021 [facility] - Occupational Stress Questionnaire Answer Date [...] as of this encounter Care Teams Call Out Clerk Relationship Specialty Start Date End Date Elsewhere, Pcp PCP - General Family Medicine 09/09/21 documented as of this encounter
--- OUTSIDE RECORDS SUMMARY | 2024-08-26 11:19 | XMS_ITS | Encounter Summary ---
Author Organization [facility] Address [address] [place] [address] Care Team Providers Care Racing Mechanic Name Role Phone Elsewhere, Pcp Primary Care Provider Unavailabl e Reason for Visit * Radiation Therapy (Routine) - Authorized Specialty Diagnoses / Procedures Referred By Misa dinero Referred To Contact Diagnoses Malignant Neoplasm Of Brain (HCC) Procedures Prior Auth Rad Tx [place] IMRT COMPLEX [place] GUIDANCE FOR LOC RAD TX [place] IMRT RADIOTHERAPY PLAN Genesis Aguilar M.D. [address] [place] [phone] [facility] Referral ID Status Reason Start Date Expiration Date V isits Requested Visits Authorized [id number] Authorized 05/15/2024 11/26/2024 30 30 Encounter Details Date Type Department Care Team (Latest Contact Info) Description 06/18/2024 9:49 AM CDT - 06/18/2024 11:59 PM CDT Hospital Encounter Department of Radiation Oncology in [place], [place] [address] [place] [phone] Genesis Aguilar M.D. [address] [place] [phone] Discharge Disposition: Home or Self Care Social [...] How often do you attend evangelical or christian serv ices? Patient declined 07/26/2021 [...] [facility] - Occupational Stress Questionnaire Answer [...] at bedtime. 04/29/2024 miscellaneous medical supply [facility] CPAP machine for home use [...] documented as of this encounter Care Teams Racing Mechanic Relationship Specialty Start Date End Date Elsewhere, Pcp PCP - General Family Medicine 09/09/21 documented as of this encounter
--- OUTSIDE RECORDS SUMMARY | 2024-08-26 11:19 | XMS_ITS | Encounter Summary ---
Author Organization [facility] Address [address] [place] [address] Care Team Providers Care Counter Supply Worker Name Role Phone Elsewhere, Pcp Primary Care Provider Unavailabl e Encounter Details Date Type Department Care Team (Late st Contact Info) Description 06/27/2024 Documentation Department of Oncology in [place], [place] [address] [place] [address] Amy Ward, M.S.W., L.I.C.S.W. [address] [place] [phone] Social History Tobacco Use Types Packs/Day Years [...] How often do you attend restorationism or alevism serv ices? Patient declined 07/26/2021 Do you [...] a call from patient's father, Chad at [phone] asking for more resources for patient in help paying his bills. Chief Of Production previously assisted in getting patient giftcards from[employer] and [employer]. Chad states the patient has not paid [...] Also encouraged them to [facility] to see if he would qualify for [...] documented as of this encounter Care Teams Counter Supply Worker Relationship Specialty Start Date End Date Elsewhere, Pcp PCP - General Family Medicine 09/09/21 documented as of this encounter
--- OUTSIDE RECORDS SUMMARY | 2024-08-26 11:19 | XMS_ITS | Encounter Summary ---
Author Organization [facility] Address [address] [place] [address] Care Team Providers Care Jeep Driver Name Role Phone Elsewhere, Pcp Primary Care Provider Unavailabl e Reason for Visit * Radiation Therapy (Routine) - Authorized Specialty Diagnoses / Procedures Referred By Misa dinero Referred To Contact Diagnoses Malignant Neoplasm Of Brain (HCC) Procedures Prior Auth Rad Tx HI IMRT COMPLEX HI GUIDANCE FOR LOC RAD TX [place] IMRT RADIOTHERAPY PLAN Genesis Aguilar M.D. [address] [place] [phone] [facility] Referral ID Status Reason Start Date Expiration Date V isits Requested Visits Authorized [id number] Authorized 05/15/2024 11/26/2024 30 30 Encounter Details Date Type Department Care Team (Latest Contact Info) Description 06/28/2024 9:48 AM CDT - 06/28/2024 11:59 PM CDT Hospital Encounter Department of Radiation Oncology in [place], [place] [address] [place] [phone] Genesis Aguilar M.D. [address] [place] [phone] Discharge Disposition: Home or Self Care Social [...] How often do you attend zoroastrian or anglican serv ices? Patient declined 07/26/2021 [...] Patient declined 07/26/2021 [facility] - Occupational Stress Questionnaire Answer Date [...] documented as of this encounter Care Teams Jeep Driver Relationship Specialty Start Date End Date Elsewhere, Pcp PCP - General Family Medicine 09/09/21 documented as of this encounter
--- OUTSIDE RECORDS SUMMARY | 2024-08-26 11:19 | XMS_ITS | Encounter Summary ---
Author Organization [facility] Address [address] [place] [address] Care Team Providers Care Lunchroom Operator Name Role Phone Elsewhere, Pcp Primary Care Provider Unavailabl e Reason for Visit * Radiation Therapy (Routine) - Authorized Specialty Diagnoses / Procedures Referred By Misa dinero Referred To Contact Diagnoses Malignant Neoplasm Of Brain (HCC) Procedures Prior Auth Rad Tx W[place] IMRT COMPLEX [place] GUIDANCE FOR LOC RAD TX W[place] IMRT RADIOTHERAPY PLAN Genesis Aguilar M.D. [address] [place] [phone] [facility] Referral ID Status Reason Start Date Expiration Date V isits Requested Visits Authorized [id number] Authorized 05/15/2024 11/26/2024 30 30 Encounter Details Date Type Department Care Team (Latest Contact Info) Description 06/25/2024 9:41 AM CDT - 06/25/2024 11:59 PM CDT Hospital Encounter Department of Radiation Oncology in [place], [place] [address] [place] [phone] Genesis Aguilar M.D. [address] [place] [phone] Discharge Disposition: Home or Self Care Social [...] How often do you attend congregational or sikh serv ices? Patient declined 07/26/2021 Do you [...] medical care, and heating? Patient declined 07/26/2021 [facility] - Occupational Stress Questionnaire Answer Date Recorded [...] documented as of this encounter Care Teams Lunchroom Operator Relationship Specialty Start Date End Date Elsewhere, Pcp PCP - General Family Medicine 09/09/21 documented as of this encounter
--- OUTSIDE RECORDS SUMMARY | 2024-08-26 11:19 | XMS_ITS | Encounter Summary ---
Author Organization [facility] Address [address] [place] [address] Care Team Providers Care Bleach Boiler Puller Name Role Phone Elsewhere, Pcp Primary Care Provider Unavailabl e Reason for Visit * Radiation Therapy (Routine) - Authorized Specialty Diagnoses / Procedures Referred By Misa dinero Referred To Contact Diagnoses Malignant Neoplasm Of Brain (HCC) Procedures Prior Auth Rad Tx [place] IMRT COMPLEX [place] GUIDANCE FOR LOC RAD TX AK IMRT RADIOTHERAPY PLAN Genesis Aguilar M.D. [address] [place] [phone] [facility] Referral ID Status Reason Start Date Expiration Date V isits Requested Visits Authorized [id number] Authorized 05/15/2024 11/26/2024 30 30 Encounter Details Date Type Department Care Team (Latest Contact Info) Description 06/19/2024 9:14 AM CDT - 06/19/2024 11:59 PM CDT Hospital Encounter Department of Radiation Oncology in [place], [place] [address] [place] [phone] Genesis Aguilar M.D. [address] [place] [phone] Discharge Disposition: Home or Self Care Social [...] How often do you attend episcopalian or amish serv ices? Patient declined 07/26/2021 [...] medical care, and heating? Patient declined 07/26/2021 [facility] - Occupational [...] documented as of this encounter Care Teams Bleach Boiler Puller Relationship Specialty Start Date End Date Elsewhere, Pcp PCP - General Family Medicine 09/09/21 documented as of this encounter
--- OUTSIDE RECORDS SUMMARY | 2024-08-26 11:19 | XMS_ITS | Encounter Summary ---
Author Organization [facility] Address [address] [place] [address] Care Team Providers Care Seo Analyst Name Role Phone Elsewhere, Pcp Primary Care Provider Unavailabl e Reason for Referral * Radiation Therapy (Routine) - Authorized Specialty Diagnoses / Procedures Referred By Misa garcia Referred To Contact Diagnoses Malignant Neoplasm Of Brain (HCC) Procedures Management Visit Genesis Aguilar M.D. [address] [place] [address] [facility] Referral ID Status Reason Start Date Expiration Date V isits Requested Visits Authorized [id number] Authorized 05/03/2024 05/03/2025 10 10 Reason for Visit * Radiation Therapy (Routine) - Authorized Specialty Diagnoses / Procedures Referred By Misa garcia Referred To Contact Diagnoses Malignant Neoplasm Of Brain (HCC) Procedures Management Visit Genesis Aguilar M.D. [address] [place] [address] [facility] Referral ID Status Reason Start Date Expiration Date V isits Requested Visits Authorized [id number] Authorized 05/03/2024 05/03/2025 10 10 Encounter Details Date Type Department Care Team (Latest Contact Info) Description 06/26/2024 9:34 AM CDT - 06/26/2024 2:36 PM CDT Hospital Encounter Department of Radiation Oncology in [place], [place] [address] [place] [phone] Genesis Aguilar M.D. [address] [place] [address] Malignant Neoplasm Of Brain (HCC) Social History [...] How often do you attend denominational or yazdanism serv ices? Patient declined 07/26/2021 Do you [...] medical care, and heating? 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
--- OUTSIDE RECORDS SUMMARY | 2024-08-26 11:19 | XMS_ITS | Encounter Summary ---
Author Organization [facility] Address [address] [place] [address] Care Team Providers Care Car Icer Name Role Phone Elsewhere, Pcp Primary Care Provider Unavailabl e Reason for Visit * Radiation Therapy (Routine) - Authorized Specialty Diagnoses / Procedures Referred By Misa dinero Referred To Contact Diagnoses Malignant Neoplasm Of Brain (HCC) Procedures Prior Auth Rad Tx [place] IMRT COMPLEX [place] GUIDANCE FOR LOC RAD TX [place] IMRT RADIOTHERAPY PLAN Genesis Aguilar M.D. [address] [place] [phone] [facility] Referral ID Status Reason Start Date Expiration Date V isits Requested Visits Authorized [id number] Authorized 05/15/2024 11/26/2024 30 30 Encounter Details Date Type Department Care Team (Latest Contact Info) Description 06/24/2024 9:41 AM CDT - 06/24/2024 11:59 PM CDT Hospital Encounter Department of Radiation Oncology in [place], [place] [address] [place] [phone] Genesis Aguilar M.D. [address] [place] [phone] Discharge Disposition: Home or Self Care Social [...] How often do you attend faith or protestant serv ices? Patient declined 07/26/2021 Do you [...] Patient declined 07/26/2021 [facility] - Occupational Stress Questionnaire Answer Date [...] at bedtime. 04/29/2024 miscellaneous medical supply [facility] CPAP machine for home use at pressure: [...] documented as of this encounter Care Teams Car Icer Relationship Specialty Start Date End Date Elsewhere, Pcp PCP - General Family Medicine 09/09/21 documented as of this encounter
--- OUTSIDE RECORDS SUMMARY | 2024-08-26 11:19 | XMS_ITS | Encounter Summary ---
Author Organization [facility] Address [address] [place] [address] Care Team Providers Care Polls Or Surveys Interviewer Name Role Phone Elsewhere, Pcp Primary Care Provider Unavailabl e Reason for Visit * Radiation Therapy (Routine) - Authorized Specialty Diagnoses / Procedures Referred By Misa dinero Referred To Contact Diagnoses Malignant Neoplasm Of Brain (HCC) Procedures Prior Auth Rad Tx [place] IMRT COMPLEX [place] GUIDANCE FOR LOC RAD TX [place] IMRT RADIOTHERAPY PLAN Genesis Aguilar M.D. [address] [place] [phone] [facility] Referral ID Status Reason Start Date Expiration Date V isits Requested Visits Authorized [id number] Authorized 05/15/2024 11/26/2024 30 30 Encounter Details Date Type Department Care Team (Latest Contact Info) Description 07/01/2024 9:43 AM CDT - 07/01/2024 11:59 PM CDT Hospital Encounter Department of Radiation Oncology in [place], [place] [address] [place] [phone] Genesis Aguilar M.D. [address] [place] [phone] Discharge Disposition: Home or Self Care Social [...] How often do you attend gnosticism or yazidism serv ices? Patient declined 07/26/2021 [...] Patient declined 07/26/2021 [facility] - Occupational Stress Questionnaire Answer Date [...] documented as of this encounter Care Teams Polls Or Surveys Interviewer Relationship Specialty Start Date End Date Elsewhere, Pcp PCP - General Family Medicine 09/09/21 documented as of this encounter
--- OUTSIDE RECORDS SUMMARY | 2024-08-26 11:19 | XMS_ITS | Encounter Summary ---
Author Organization [facility] Address [address] [place] [address] Care Team Providers Care Supervisor Keymodule Assembly Name Role Phone Elsewhere, Pcp Primary Care Provider Unavailabl e Reason for Referral * Radiation Therapy (Routine) - Authorized Specialty Diagnoses / Procedures Referred By Misa garcia Referred To Contact Diagnoses Malignant Neoplasm Of Brain (HCC) Procedures Management Visit Genesis Aguilar M.D. [address] [place] [address] [facility] Region Referral ID Status Reason Start Date Expiration Date V isits Requested Visits Authorized [id number] Authorized 05/03/2024 05/03/2025 10 10 Reason for Visit * Radiation Therapy (Routine) - Authorized Specialty Diagnoses / Procedures Referred By Misa garcia Referred To Contact Diagnoses Malignant Neoplasm Of Brain (HCC) Procedures Management Visit Genesis Aguilar M.D. [address] [place] [address] [facility] Region Referral ID Status Reason Start Date Expiration Date V isits Requested Visits Authorized [id number] Authorized 05/03/2024 05/03/2025 10 10 Encounter Details Date Type Department Care Team (Latest Contact Info) Description 06/19/2024 9:14 AM CDT - 06/19/2024 2:50 PM CDT Hospital Encounter Department of Radiation Oncology in [place], [place] [address] [place] [phone] Genesis Aguilar M.D. [address] [place] [address] Malignant Neoplasm Of Brain (HCC) Social History [...] How often do you attend moravian or yazdanism serv ices? 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 This is being by his [facility] Neurologist. 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
--- OUTSIDE RECORDS SUMMARY | 2024-08-26 11:19 | XMS_ITS | Encounter Summary ---
Author Organization [facility] Address [address] [place] [address] Care Team Providers Care Project Builder Name Role Phone Elsewhere, Pcp Primary Care Provider Unavailabl e Reason for Visit * Radiation Therapy (Routine) - Authorized Specialty Diagnoses / Procedures Referred By Misa dinero Referred To Contact Diagnoses Malignant Neoplasm Of Brain (HCC) Procedures Prior Auth Rad Tx [place] IMRT COMPLEX [place] GUIDANCE FOR LOC RAD TX [place] IMRT RADIOTHERAPY PLAN Genesis Aguilar M.D. [address] [place] [phone] [facility] Referral ID Status Reason Start Date Expiration Date V isits Requested Visits Authorized [id number] Authorized 05/15/2024 11/26/2024 30 30 Encounter Details Date Type Department Care Team (Latest Contact Info) Description 06/20/2024 9:36 AM CDT - 06/20/2024 11:59 PM CDT Hospital Encounter Department of Radiation Oncology in [place], [place] [address] [place] [phone] Genesis Aguilar M.D. [address] [place] [phone] Discharge Disposition: Home or Self Care Social [...] How often do you attend anglican or christian serv ices? Patient declined 07/26/2021 [...] Patient declined 07/26/2021 [facility] [...] documented as of this encounter Care Teams Project Builder Relationship Specialty Start Date End Date Elsewhere, Pcp PCP - General Family Medicine 09/09/21 documented as of this encounter
--- OUTSIDE RECORDS SUMMARY | 2024-08-26 11:19 | XMS_ITS | Encounter Summary ---
Author Organization [facility] Address [address] [place] [address] Care Team Providers Care Headmaster/Mistress Name Role Phone Elsewhere, Pcp Primary Care Provider Unavailabl e Reason for Visit * Radiation Therapy (Routine) - Authorized Specialty Diagnoses / Procedures Referred By Misa dinero Referred To Contact Diagnoses Malignant Neoplasm Of Brain (HCC) Procedures Prior Auth Rad Tx [place] IMRT COMPLEX MI GUIDANCE FOR LOC RAD TX [place] IMRT RADIOTHERAPY PLAN Genesis Aguilar M.D. [address] [place] [address] [facility] Referral ID Status Reason Start Date Expiration Date V isits Requested Visits Authorized [id number] Authorized 05/15/2024 11/26/2024 30 30 Encounter Details Date Type Department Care Team (Latest Contact Info) Description 06/26/2024 9:33 AM CDT Hospital Encounter Department of Radiation Oncology in [place], [place] [address] [place] [phone] Genesis Aguilar M.D. [address] [place] [phone] Discharge Disposition: Home or Self Care Social [...] often do you attend latter day or pentecostalism serv ices? Patient declined 07/26/2021 [...] medical care, and heating? Patient declined 07/26/2021 [facility] Occupat ional Health - Occupational [...] documented as of this encounter Care Teams Headmaster/Mistress Relationship Specialty Start Date End Date Elsewhere, Pcp PCP - General Family Medicine 09/09/21 documented as of this encounter
--- OUTSIDE RECORDS SUMMARY | 2024-08-26 11:19 | XMS_ITS | Encounter Summary ---
Author Organization [facility] Address [address] [place] [address] Care Team Providers Care Fisheries Director Name Role Phone Elsewhere, Pcp Primary Care Provider Unavailabl e Reason for Visit * Radiation Therapy (Routine) - Authorized Specialty Diagnoses / Procedures Referred By Misa dinero Referred To Contact Diagnoses Malignant Neoplasm Of Brain (HCC) Procedures Prior Auth Rad Tx CT IMRT COMPLEX CT GUIDANCE FOR LOC RAD TX CT IMRT RADIOTHERAPY PLAN Genesis Aguilar M.D. [address] [place] [phone] [facility] Referral ID Status Reason Start Date Expiration Date V isits Requested Visits Authorized [id number] Authorized 05/15/2024 11/26/2024 30 30 Encounter Details Date Type Department Care Team (Latest Contact Info) Description 06/21/2024 9:28 AM CDT - 06/21/2024 11:59 PM CDT Hospital Encounter Department of Radiation Oncology in [place], [place] [address] [place] [phone] Genesis Aguilar M.D. [address] [place] [phone] Discharge Disposition: Home or Self Care Social [...] How often do you attend yazidism or sikhism serv ices? Patient declined 07/26/2021 [...] medical care, and heating? Patient declined 07/26/2021 [facility] - Occupational [...] documented as of this encounter Care Teams Fisheries Director Relationship Specialty Start Date End Date Elsewhere, Pcp PCP - General Family Medicine 09/09/21 documented as of this encounter
--- OUTSIDE RECORDS SUMMARY | 2024-08-26 11:20 | XMS_ITS | Encounter Summary ---
Author Organization [facility] Address [address] [place] [address] Care Team Providers Care Cryptanalyst Name Role Phone Elsewhere, Pcp Primary Care Provider Unavailabl e Encounter Details Date Type Department Care Team (Late st Contact Info) Description 06/11/2024 Clinical Communication Department of Oncology in [place], [place] [address] [place] [phone] Amy Ward, M.S.W., L.I.C.S.W. [address] [place] [phone] Social History Tobacco Use Types Packs/Day Years [...] How often do you attend voodoo or holiness serv ices? Patient declined 07/26/2021 Do you [...] declined 07/26/2021 [facility]at ional Health - [...] for financial resources available that patient and pattern chart writer talked about at our visit. Patient was included in an email for assistance from [email or web address] however states he did not receives the emails, confirmed it was sent to [employer]. Patient was also told to watch for [...] documented as of this encounter Care Teams Cryptanalyst Relationship Specialty Start Date End Date Elsewhere, Pcp PCP - General Family Medicine 09/09/21 documented as of this encounter
--- OUTSIDE RECORDS SUMMARY | 2024-08-26 11:20 | XMS_ITS | Encounter Summary ---
Author Organization [facility] Address [address] [place] [address] Care Team Providers Care Preparation Room Worker Name Role Phone Elsewhere, Pcp Primary Care Provider Unavailabl e Reason for Referral * Outpatient (Routine) - Authorized Specialty Diagnoses / Procedures Referred By Contac t Referred To Contact Radiation Oncology Genesis Aguilar M.D. [address] [place] [phone] [facility] Region Referral ID Status Reason Start Date Expiration Date V isits Requested Visits Authorized [id number] Authorized 05/23/2024 11/22/2025 5 5 Reason for Visit * Outpatient (Routine) - Authorized Specialty Diagnoses / Procedures Referred By Misa dinero Referred To Contact Radiation Oncology Genesis Aguilar M.D. [address] [place] [phone] [facility] Region Referral ID Status Reason Start Date Expiration Date V isits Requested Visits Authorized [id number] Authorized 05/23/2024 11/22/2025 5 5 Encounter Details Date Type Department Care Team (Latest Contact Info) Description 06/10/2024 10:30 AM CDT - 06/10/2024 11:20 AM CDT Hospital Encounter Department of Radiation Oncology in [place], [place] [address] [place] [phone] Genesis Aguilar M.D. [address] [place] [phone] Jessica Arevalo R.N. [address] [place] [address] Malignant Neoplasm Of Brain (HCC) (Primary Dx) [...] How often do you attend yazdanism or mormon serv ices? Patient declined 07/26/2021 Do you [...] medical care, and heating? Patient declined 07/26/2021 [facility] of Occupat ional Health - Occupational Stress [...] at bedtime. 04/29/[address] [facility] CPAP machine for home use at pressure: [...] total resection of a right temporal glioblastoma (MIDDLE SCHOOL LIBRARIAN who grade 4), IDH negative. Patient is [...] has appointment with his Neuro team at [facility] at [address] Ryder confirmed last [...] documented as of this encounter Care Teams Preparation Room Worker Relationship Specialty Start Date End Date Elsewhere, Pcp PCP - General Family Medicine 09/09/21 documented as of this encounter
--- OUTSIDE RECORDS SUMMARY | 2024-08-26 11:20 | XMS_ITS | Encounter Summary ---
Author Organization [facility] Address [address] [place] [address] Care Team Providers Care Assistant Designer Name Role Phone Elsewhere, Pcp Primary Care Provider Unavailabl e Reason for Visit * Radiation Therapy (Routine) - Authorized Specialty Diagnoses / Procedures Referred By Misa dinero Referred To Contact Diagnoses Malignant Neoplasm Of Brain (HCC) Procedures Prior Auth Rad Tx [place] IMRT COMPLEX [place] GUIDANCE FOR LOC RAD [place] IMRT RADIOTHERAPY PLAN Genesis Aguilar M.D. [address] [place] [phone] [facility] Referral ID Status Reason Start Date Expiration Date V isits Requested Visits Authorized [id number] Authorized 05/15/2024 11/26/2024 30 30 Encounter Details Date Type Department Care Team (Latest Contact Info) Description 06/07/2024 9:46 AM CDT - 06/07/2024 11:59 PM CDT Hospital Encounter Department of Radiation Oncology in [place], [place] [address] [place] [phone] Genesis Aguilar M.D. [address] [place] [phone] Discharge Disposition: Home or Self Care Social [...] How often do you attend muslim or advent serv ices? Patient declined 07/26/2021 [...] medical care, and heating? Patient declined 07/26/2021 [facility] - Occupational Stress Questionnaire Answer Date Recorded [...] as of this encounter Care Teams Assistant Designer Relationship Specialty Start Date End Date Elsewhere, Pcp PCP - General Family Medicine 09/09/21 documented as of this encounter
--- OUTSIDE RECORDS SUMMARY | 2024-08-26 11:20 | XMS_ITS | Encounter Summary ---
Author Organization [facility] Address [address] [place] [address] Care Team Providers Care Caisson Worker Name Role Phone Elsewhere, Pcp Primary Care Provider Unavailabl e Reason for Referral * Radiation Therapy (Routine) - Authorized Specialty Diagnoses / Procedures Referred By Misa garcia Referred To Contact Diagnoses Malignant Neoplasm Of Brain (HCC) Procedures Management Visit Genesis Aguilar M.D. [address] [place] [phone] [facility] Region Referral ID Status Reason Start Date Expiration Date V isits Requested Visits Authorized [id number] Authorized 05/03/2024 05/03/2025 10 10 Reason for Visit * Radiation Therapy (Routine) - Authorized Specialty Diagnoses / Procedures Referred By Misa garcia Referred To Contact Diagnoses Malignant Neoplasm Of Brain (HCC) Procedures Management Visit Genesis Aguilar M.D. [address] [place] [address] [facility] Region Referral ID Status Reason Start Date Expiration Date V isits Requested Visits Authorized [id number] Authorized 05/03/2024 05/03/2025 10 10 Encounter Details Date Type Department Care Team (Latest Contact Info) Description 06/04/2024 9:54 AM CDT - 06/04/2024 6:14 PM CDT Hospital Encounter Department of Radiation Oncology in [place], [place] [address] [place] [phone] Jeovanny Khalil M.D. [address] [place] [address] Malignant Neoplasm Of Brain (HCC) Social History [...] How often do you attend islam or yazidi serv ices? Patient declined 07/26/2021 [...] Body Mass Index 34.8 10/08/2021 3:55 PM FLAME CHANNELER documented in this encounter Medications at Time [...] mouth at bedtime. 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 Patient declined visit with our Resolution Specialist. We will re check weight next week. [...] M.D. 06/04/2024 6:13 PM CDT [facility] [address] [place] [address] documented in this encounter Miscellaneous Notes * [...] documented as of this encounter Care Teams Caisson Worker Relationship Specialty Start Date End Date Elsewhere, Pcp PCP - General Family Medicine 09/09/21 documented as of this encounter
--- OUTSIDE RECORDS SUMMARY | 2024-08-26 11:20 | XMS_ITS | Encounter Summary ---
Author Organization [facility] Address [address] [place] [address] Care Team Providers Care Chief Compressor Station Engineer Name Role Phone Elsewhere, Pcp Primary Care Provider Unavailabl e Reason for Referral * Radiation Therapy (Routine) - Authorized Specialty Diagnoses / Procedures Referred By Misa garcia Referred To Contact Diagnoses Malignant Neoplasm Of Brain (HCC) Procedures Management Visit Genesis Aguilar M.D. [address] [place] [address] [facility] Region Referral ID Status Reason Start Date Expiration Date V isits Requested Visits Authorized [id number] Authorized 05/03/2024 05/03/2025 10 10 Reason for Visit * Radiation Therapy (Routine) - Authorized Specialty Diagnoses / Procedures Referred By Misa garcia Referred To Contact Diagnoses Malignant Neoplasm Of Brain (HCC) Procedures Management Visit Genesis Aguilar M.D. [address] [place] [address] [facility] Region Referral ID Status Reason Start Date Expiration Date V isits Requested Visits Authorized [id number] Authorized 05/03/2024 05/03/2025 10 10 Encounter Details Date Type Department Care Team (Latest Contact Info) Description 06/12/2024 9:44 AM CDT - 06/12/2024 12:55 PM CDT Hospital Encounter Department of Radiation Oncology in [place], [place] [address] [place] [phone] Genesis Aguilar M.D. [address] [place] [address] Malignant Neoplasm Of Brain (HCC) Social History [...] How often do you attend sikhism or synagogue serv ices? Patient declined 07/26/2021 Do you [...] and heating? Patient declined 07/26/2021 [facility] of Occupat ional Health - Occupational [...] Body Mass Index 35.97 10/08/2021 3:55 PM CHASSIS DRIVER documented in this encounter Medications at Time [...] mouth at bedtime. 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
--- OUTSIDE RECORDS SUMMARY | 2024-08-26 11:20 | XMS_ITS | Encounter Summary ---
Author Organization [facility] Address [address] [place] [address] Care Team Providers Care Solar Photovoltaic Designer Name Role Phone Elsewhere, Pcp Primary Care Provider Unavailabl e Reason for Visit * Radiation Therapy (Routine) - Authorized Specialty Diagnoses / Procedures Referred By Misa dinero Referred To Contact Diagnoses Malignant Neoplasm Of Brain (HCC) Procedures Prior Auth Rad Tx [place] IMRT COMPLEX [place] GUIDANCE FOR LOC RAD TX OR IMRT RADIOTHERAPY PLAN Genesis Aguilar M.D. [address] [place] [phone] [facility] Referral ID Status Reason Start Date Expiration Date V isits Requested Visits Authorized [id number] Authorized 05/15/2024 11/26/2024 30 30 Encounter Details Date Type Department Care Team (Latest Contact Info) Description 06/05/2024 9:43 AM CDT - 06/05/2024 11:59 PM CDT Hospital Encounter Department of Radiation Oncology in [place], [place] [address] [place] [phone] Genesis Aguilar M.D. [address] [place] [phone] Discharge Disposition: Home or Self Care Social [...] How often do you attend christianity or mu-ism serv ices? Patient declined 07/26/2021 [...] medical care, and heating? Patient declined 07/26/2021 [facility] - Occupational [...] documented as of this encounter Care Teams Solar Photovoltaic Designer Relationship Specialty Start Date End Date Elsewhere, Pcp PCP - General Family Medicine 09/09/21 documented as of this encounter
--- OUTSIDE RECORDS SUMMARY | 2024-08-26 11:20 | XMS_ITS | Encounter Summary ---
Author Organization [facility] Address [address] [place] [address] Care Team Providers Care Communications Engineer Name Role Phone Elsewhere, Pcp Primary Care Provider Unavailabl e Reason for Visit * Radiation Therapy (Routine) - Authorized Specialty Diagnoses / Procedures Referred By Misa dinero Referred To Contact Diagnoses Malignant Neoplasm Of Brain (HCC) Procedures Prior Auth Rad Tx HI IMRT COMPLEX HI GUIDANCE FOR LOC RAD TX [place] IMRT RADIOTHERAPY PLAN Genesis Aguilar M.D. [address] [place] [phone] [facility] Referral ID Status Reason Start Date Expiration Date V isits Requested Visits Authorized [id number] Authorized 05/15/2024 11/26/2024 30 30 Encounter Details Date Type Department Care Team (Latest Contact Info) Description 06/17/2024 9:40 AM CDT - 06/17/2024 11:59 PM CDT Hospital Encounter Department of Radiation Oncology in [place], [place] [address] [place] [phone] Genesis Aguilar M.D. [address] [place] [phone] Discharge Disposition: Home or Self Care Social [...] How often do you attend mormon or advent serv ices? Patient declined 07/26/2021 [...] Patient declined 07/26/2021 [facility] - Occupational Stress Questionnaire Answer Date [...] 04/29/2024 miscellaneous medical supply [facility] CPAP machine for home use [...] as of this encounter Care Teams Communications Engineer Relationship Specialty Start Date End Date Elsewhere, Pcp PCP - General Family Medicine 09/09/21 documented as of this encounter
--- OUTSIDE RECORDS SUMMARY | 2024-08-26 11:20 | XMS_ITS | Encounter Summary ---
Author Organization [facility] Address [address] [place] [address] Care Team Providers Care Esl Professor Name Role Phone Elsewhere, Pcp Primary Care Provider Unavailabl e Reason for Visit * Radiation Therapy (Routine) - Authorized Specialty Diagnoses / Procedures Referred By Misa dinero Referred To Contact Diagnoses Malignant Neoplasm Of Brain (HCC) Procedures Prior Auth Rad Tx [place] IMRT COMPLEX [place] GUIDANCE FOR LOC RAD TX [place] IMRT RADIOTHERAPY PLAN Genesis Aguilar M.D. [address] [place] [phone] [facility] Referral ID Status Reason Start Date Expiration Date V isits Requested Visits Authorized [id number] Authorized 05/15/2024 11/26/2024 30 30 Encounter Details Date Type Department Care Team (Latest Contact Info) Description 06/06/2024 9:56 AM CDT - 06/06/2024 11:59 PM CDT Hospital Encounter Department of Radiation Oncology in [place], [place] [address] [place] [phone] Genesis Aguilar M.D. [address] [place] [phone] Discharge Disposition: Home or Self Care Social [...] How often do you attend taoist or confucianism serv ices? Patient declined 07/26/2021 [...] medical care, and heating? Patient declined 07/26/2021 [facility] - Occupational Stress Questionnaire Answer Date [...] documented as of this encounter Care Teams Esl Professor Relationship Specialty Start Date End Date Elsewhere, Pcp PCP - General Family Medicine 09/09/21 documented as of this encounter
--- OUTSIDE RECORDS SUMMARY | 2024-08-26 11:20 | XMS_ITS | Encounter Summary ---
Author Organization [facility] Address [address] [place] [address] Care Team Providers Care Wound Specialist Name Role Phone Elsewhere, Pcp Primary Care Provider Unavailabl e Reason for Visit * Radiation Therapy (Routine) - Authorized Specialty Diagnoses / Procedures Referred By Misa dinero Referred To Contact Diagnoses Malignant Neoplasm Of Brain (HCC) Procedures Prior Auth Rad Tx [place] IMRT COMPLEX [place] GUIDANCE FOR LOC RAD TX [place] IMRT RADIOTHERAPY PLAN Genesis Aguilar M.D. [address] [place] [phone] [facility] Referral ID Status Reason Start Date Expiration Date V isits Requested Visits Authorized [id number] Authorized 05/15/2024 11/26/2024 30 30 Encounter Details Date Type Department Care Team (Latest Contact Info) Description 06/13/2024 9:40 AM CDT - 06/13/2024 11:59 PM CDT Hospital Encounter Department of Radiation Oncology in [place], [place] [address] [place] [phone] Genesis Aguilar M.D. [address] [place] [phone] Discharge Disposition: Home or Self Care Social [...] How often do you attend gnosticism or amish serv ices? Patient declined 07/26/2021 [...] medical care, and heating? Patient declined 07/26/2021 [facility] - Occupational Stress Questionnaire Answer Date [...] mouth at bedtime. 04/29/2024 miscellaneous medical supply [facility] CPAP machine for [...] documented as of this encounter Care Teams Wound Specialist Relationship Specialty Start Date End Date Elsewhere, Pcp PCP - General Family Medicine 09/09/21 documented as of this encounter
--- OUTSIDE RECORDS SUMMARY | 2024-08-26 11:20 | XMS_ITS | Encounter Summary ---
Author Organization [facility] Address [address] [place] [address] Care Team Providers Care Associate Justice Name Role Phone Elsewhere, Pcp Primary Care Provider Unavailabl e Reason for Visit * Radiation Therapy (Routine) - Authorized Specialty Diagnoses / Procedures Referred By Misa dinero Referred To Contact Diagnoses Malignant Neoplasm Of Brain (HCC) Procedures Prior Auth Rad Tx [place] IMRT COMPLEX [place] GUIDANCE FOR LOC RAD TX [place] IMRT RADIOTHERAPY PLAN Genesis Aguilar M.D. [address] [place] [phone] [facility] Referral ID Status Reason Start Date Expiration Date V isits Requested Visits Authorized [id number] Authorized 05/15/2024 11/26/2024 30 30 Encounter Details Date Type Department Care Team (Latest Contact Info) Description 06/12/2024 9:44 AM CDT - 06/12/2024 11:59 PM CDT Hospital Encounter Department of Radiation Oncology in [place], [place] [address] [place] [phone] Genesis Aguilar M.D. [address] [place] [phone] Discharge Disposition: Home or Self Care Social [...] How often do you attend zoroastrian or zoroastrianism serv ices? Patient declined 07/26/2021 [...] care, and heating? Patient declined 07/26/2021 [facility] - Occupational Stress [...] mouth at bedtime. 04/29/2024 miscellaneous medical supply [facility] CPAP machine for home use at pressure: [...] documented as of this encounter Care Teams Associate Justice Relationship Specialty Start Date End Date Elsewhere, Pcp PCP - General Family Medicine 09/09/21 documented as of this encounter
--- OUTSIDE RECORDS SUMMARY | 2024-08-26 11:20 | XMS_ITS | Encounter Summary ---
Author Organization [facility] Address [address] [place] [address] Care Team Providers Care Parts Counter Salesperson Name Role Phone Elsewhere, Pcp Primary Care Provider Unavailabl e Reason for Visit * Radiation Therapy (Routine) - Authorized Specialty Diagnoses / Procedures Referred By Misa dinero Referred To Contact Diagnoses Malignant Neoplasm Of Brain (HCC) Procedures Prior Auth Rad Tx [place] IMRT COMPLEX [place] GUIDANCE FOR LOC RAD TX AK IMRT RADIOTHERAPY PLAN Genesis Aguilar M.D. [address] [place] [phone] [facility] Referral ID Status Reason Start Date Expiration Date V isits Requested Visits Authorized [id number] Authorized 05/15/2024 11/26/2024 30 30 Encounter Details Date Type Department Care Team (Latest Contact Info) Description 06/14/2024 9:43 AM CDT - 06/14/2024 11:59 PM CDT Hospital Encounter Department of Radiation Oncology in [place], [place] [address] [place] [phone] Genesis Aguilar M.D. [address] [place] [phone] Discharge Disposition: Home or Self Care Social [...] declined 07/26/2021 How often do you attend gnosticist or faith serv ices? Patient declined 07/26/2021 Do you belong to any clubs o r organizations such as gnosticist groups, unions, fraternal or athletic groups, or [...] 07/26/2021 [facility] - Occupational Stress Questionnaire Answer Date [...] bedtime. 04/29/2024 miscellaneous medical supply [facility] CPAP machine for home use at pressure: [...] documented as of this encounter Care Teams Parts Counter Salesperson Relationship Specialty Start Date End Date Elsewhere, Pcp PCP - General Family Medicine 09/09/21 documented as of this encounter
--- OUTSIDE RECORDS SUMMARY | 2024-08-26 11:20 | XMS_ITS | Encounter Summary ---
Author Organization [facility] Address [address] [place] [address] Care Team Providers Care Explosives Truck Driver Name Role Phone Elsewhere, Pcp Primary Care Provider Unavailabl e Reason for Visit * Radiation Therapy (Routine) - Authorized Specialty Diagnoses / Procedures Referred By Misa dinero Referred To Contact Diagnoses Malignant Neoplasm Of Brain (HCC) Procedures Prior Auth Rad Tx [place] IMRT COMPLEX [place] GUIDANCE FOR LOC RAD TX [place] IMRT RADIOTHERAPY PLAN Genesis Aguilar M.D. [address] [place] [phone] [facility] Referral ID Status Reason Start Date Expiration Date V isits Requested Visits Authorized [id number] Authorized 05/15/2024 11/26/2024 30 30 Encounter Details Date Type Department Care Team (Latest Contact Info) Description 06/11/2024 9:47 AM CDT - 06/11/2024 11:59 PM CDT Hospital Encounter Department of Radiation Oncology in [place], [place] [address] [place] [phone] Genesis Aguilar M.D. [address] [place] [phone] Discharge Disposition: Home or Self Care Social [...] declined 07/26/2021 How often do you attend jehovah's witness or hinduism serv ices? Patient declined 07/26/2021 Do you belong to any clubs o r organizations such as jehovah's witness groups, unions, fraternal or athletic groups, or [...] medical care, and heating? Patient declined 07/26/2021 [facility] - Occupational [...] documented as of this encounter Care Teams Explosives Truck Driver Relationship Specialty Start Date End Date Elsewhere, Pcp PCP - General Family Medicine 09/09/21 documented as of this encounter
--- OUTSIDE RECORDS SUMMARY | 2024-08-26 11:21 | XMS_ITS | Encounter Summary ---
Author Organization [facility] Address [address] [place] [address] Care Team Providers Care Certified Residential Medication Aide Name Role Phone Elsewhere, Pcp Primary Care Provider Unavailabl e Reason for Visit * Radiation Therapy (Routine) - Authorized Specialty Diagnoses / Procedures Referred By Misa dinero Referred To Contact Diagnoses Malignant Neoplasm Of Brain (HCC) Procedures Prior Auth Rad Tx [place] IMRT COMPLEX [place] GUIDANCE FOR LOC RAD TX [place] IMRT RADIOTHERAPY PLAN Genesis Aguilar M.D. [address] [place] [phone] [facility] Referral ID Status Reason Start Date Expiration Date V isits Requested Visits Authorized [id number] Authorized 05/15/2024 11/26/2024 30 30 Encounter Details Date Type Department Care Team (Latest Contact Info) Description 06/04/2024 9:53 AM CDT Hospital Encounter Department of Radiation Oncology in [place], [place] [address] [place] [phone] Genesis Aguilar M.D. [address] [place] [phone] Discharge Disposition: Home or Self Care Social [...] declined 07/26/2021 How often do you attend shinto or hinduism serv ices? Patient declined 07/26/2021 Do you belong to any clubs o r organizations such as shinto groups, unions, fraternal or athletic groups, or [...] medical care, and heating? Patient declined 07/26/2021 [facility] of Occupat ional Health - [...] mouth at bedtime. 04/29/2024 miscellaneous medical supply [facility] CPAP machine for home [...] documented as of this encounter Care Teams Certified Residential Medication Aide Relationship Specialty Start Date End Date Elsewhere, Pcp PCP - General Family Medicine 09/09/21 documented as of this encounter
--- OUTSIDE RECORDS SUMMARY | 2024-08-26 11:21 | XMS_ITS | Encounter Summary ---
Author Organization [facility] Address [address] [place] [address] Care Team Providers Care Menu Planner Name Role Phone Elsewhere, Pcp Primary Care Provider Unavailabl e Reason for Referral * Radiation Therapy (Routine) - Authorized Specialty Diagnoses / Procedures Referred By Misa garcia Referred To Contact Diagnoses Malignant Neoplasm Of Brain (HCC) Procedures Management Visit Genesis Aguilar M.D. [address] [place] [address] [facility] Region Referral ID Status Reason Start Date Expiration Date V isits Requested Visits Authorized [id number] Authorized 05/03/2024 05/03/2025 10 10 Reason for Visit * Radiation Therapy (Routine) - Authorized Specialty Diagnoses / Procedures Referred By Misa garcia Referred To Contact Diagnoses Malignant Neoplasm Of Brain (HCC) Procedures Management Visit Genesis Aguilar M.D. [address] [place] [address] [facility] Region Referral ID Status Reason Start Date Expiration Date V isits Requested Visits Authorized [id number] Authorized 05/03/2024 05/03/2025 10 10 Encounter Details Date Type Department Care Team (Latest Contact Info) Description 05/29/2024 9:58 AM CDT - 05/29/2024 11:26 AM CDT Hospital Encounter Department of Radiation Oncology in [place], [place] [address] [place] [phone] Genesis Aguilar M.D. [address] [place] [address] Malignant Neoplasm Of Brain (HCC) Social History [...] How often do you attend shinto or amish serv ices? Patient declined 07/26/2021 [...] Patient declined 07/26/2021 [facility] ional [facility] - [...] Body Mass Index 34.73 10/08/2021 3:55 PM OUTSIDE PLANT TECHNICIAN documented in this encounter Medications at [...] total resection of a right temporal glioblastoma (TOBACCO FARMWORKER who grade 4), IDH negative. Patient is now undergoing radiation therapy concurrent with Temodar. 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
--- OUTSIDE RECORDS SUMMARY | 2024-08-26 11:21 | XMS_ITS | Encounter Summary ---
Author Organization [facility] Address [address] [place] [address] Care Team Providers Care Ur Coordinator Name Role Phone Elsewhere, Pcp Primary Care Provider Unavailabl e Reason for Visit * Radiation Therapy (Routine) - Authorized Specialty Diagnoses / Procedures Referred By Misa dinero Referred To Contact Diagnoses Malignant Neoplasm Of Brain (HCC) Procedures Prior Auth Rad Tx [place] IMRT COMPLEX [place] GUIDANCE FOR LOC RAD [place] IMRT RADIOTHERAPY PLAN Genesis Aguilar M.D. [address] [place] [phone] [facility] Referral ID Status Reason Start Date Expiration Date V isits Requested Visits Authorized [id number] Authorized 05/15/2024 11/26/2024 30 30 Encounter Details Date Type Department Care Team (Latest Contact Info) Description 05/31/2024 10:13 AM CDT - 05/31/2024 11:59 PM CDT Hospital Encounter Department of Radiation Oncology in [place], [place] [address] [place] [phone] Genesis Aguilar M.D. [address] [place] [phone] Discharge Disposition: Home or Self Care Social [...] How often do you attend lutheran or sabianist serv ices? Patient declined 07/26/2021 [...] heating? Patient declined 07/26/2021 [facility] - [facility]ational [...] mouth at bedtime. 04/29/2024 miscellaneous medical supply [facility] CPAP machine for home use [...] documented as of this encounter Care Teams Ur Coordinator Relationship Specialty Start Date End Date Elsewhere, Pcp PCP - General Family Medicine 09/09/21 documented as of this encounter
--- OUTSIDE RECORDS SUMMARY | 2024-08-26 11:21 | XMS_ITS | Encounter Summary ---
Author Organization [facility] Address [address] [place] [address] Care Team Providers Care Brooch Maker Novelty Name Role Phone Elsewhere, Pcp Primary Care Provider Unavailabl e Reason for Visit * Radiation Therapy (Routine) - Authorized Specialty Diagnoses / Procedures Referred By Misa dinero Referred To Contact Diagnoses Malignant Neoplasm Of Brain (HCC) Procedures Prior Auth Rad Tx [place] IMRT COMPLEX [place] GUIDANCE FOR LOC RAD TX [place] IMRT RADIOTHERAPY PLAN Genesis Aguilar M.D. [address] [place] [phone] [facility] Referral ID Status Reason Start Date Expiration Date V isits Requested Visits Authorized [id number] Authorized 05/15/2024 11/26/2024 30 30 Encounter Details Date Type Department Care Team (Latest Contact Info) Description 05/28/2024 9:33 AM CDT - 05/28/2024 11:59 PM CDT Hospital Encounter Department of Radiation Oncology in [place], [place] [address] [place] [phone] Genesis Aguilar M.D. [address] [place] [phone] Discharge Disposition: Home or Self Care Social [...] How often do you attend temple or samaritan serv ices? Patient declined 07/26/2021 [...] Patient declined 07/26/2021 [facility] - Occupational Stress Questionnaire Answer Date [...] documented as of this encounter Care Teams Brooch Maker Novelty Relationship Specialty Start Date End Date Elsewhere, Pcp PCP - General Family Medicine 09/09/21 documented as of this encounter
--- OUTSIDE RECORDS SUMMARY | 2024-08-26 11:21 | XMS_ITS | Encounter Summary ---
Author Organization [facility] Address [address] [place] [address] Care Team Providers Care Forklift Technician Name Role Phone Elsewhere, Pcp Primary Care Provider Unavailabl e Reason for Referral * Outpatient (Routine) - Closed Specialty Diagnoses / Procedures Referred By Misa dinero Referred To Contact Social Work Diagnoses Malignant Neoplasm Of Brain (HCC) Mica Gonzalez M.D. [address] [place] [address] [facility] Referral ID Status Reason Start Date Expiration Date Visits Re quested Visits Authorized [id number] Closed 05/08/2024 11/07/2025 1 1 Reason for Visit * Outpatient (Routine) - Closed Specialty Diagnoses / Procedures Referred By Msia dinero Referred To Contact Social Work Diagnoses Malignant Neoplasm Of Brain (HCC) Mica Gonzalez M.D. [address] [place] [address] [facility] Referral ID Status Reason Start Date Expiration Date Visits Re quested Visits Authorized [id number] Closed 05/08/2024 11/07/2025 1 1 Encounter Details Date Type Department Care Team (Latest Contact Info) Description 05/28/2024 8:50 AM CDT - 05/28/2024 9:32 AM CDT Hospital Encounter Department of Radiation Oncology in [place], [place] [address] [place] [phone] Mica Gonzalez M.D. [address] [place] [address] Amy Ward M.S.W., L.I.C.S.W. [address] [place] [address] Counseling Phase Of Life Problem (Primary Dx); [...] declined 07/26/2021 How often do you attend tenriism or evangelical serv ices? Patient declined 07/26/2021 Do you belong to any clubs o r organizations such as tenriism groups, unions, fraternal or athletic groups, or [...] medical care, and heating? Patient declined 07/26/2021 [facility] of Occupat ional Health - Occupational Stress [...] at bedtime. 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 Introduced Social Work and their role in the outpatient setting. Informed patient and family of Social Work's legal responsibility as a mandated principal systems architect and what that entails in regards to [...] He is concerned about finances, will send Reflex to him, [employer] and refer him [...] counseling throughout his cancer center journey at [facility] was offered. he was accepting of the [...] Assessment; Education provided about the role of Remotely Piloted Vehicle Controller professionals here at [facility]; Supportive Counseling Regarding the experience of Living [...] documented as of this encounter Care Teams Forklift Technician Relationship Specialty Start Date End Date Elsewhere, Pcp PCP - General Family Medicine 09/09/21 documented as of this encounter
--- OUTSIDE RECORDS SUMMARY | 2024-08-26 11:21 | XMS_ITS | Encounter Summary ---
Author Organization [facility] Address [address] [place] [address] Care Team Providers Care Assembler Show Motor Name Role Phone Elsewhere, Pcp Primary Care Provider Unavailabl e Reason for Visit * Radiation Therapy (Routine) - Authorized Specialty Diagnoses / Procedures Referred By Misa dinero Referred To Contact Diagnoses Malignant Neoplasm Of Brain (HCC) Procedures Prior Auth Rad Tx [place] IMRT COMPLEX [place] GUIDANCE FOR LOC RAD TX [place] IMRT RADIOTHERAPY PLAN Genesis Aguilar M.D. [address] [place] [phone] [facility] Referral ID Status Reason Start Date Expiration Date V isits Requested Visits Authorized [id number] Authorized 05/15/2024 11/26/2024 30 30 Encounter Details Date Type Department Care Team (Latest Contact Info) Description 05/29/2024 9:58 AM CDT - 05/29/2024 11:59 PM CDT Hospital Encounter Department of Radiation Oncology in [place], [place] [address] [place] [phone] Genesis Aguilar M.D. [address] [place] [phone] Discharge Disposition: Home or Self Care Social [...] declined 07/26/2021 How often do you attend sikh or latter day serv ices? Patient declined 07/26/2021 Do you belong to any clubs o r organizations such as sikh groups, unions, fraternal or athletic groups, or [...] Patient declined 07/26/2021 [facility] [place] [...] documented as of this encounter Care Teams Assembler Show Motor Relationship Specialty Start Date End Date Elsewhere, Pcp PCP - General Family Medicine 09/09/21 documented as of this encounter
--- OUTSIDE RECORDS SUMMARY | 2024-08-26 11:21 | XMS_ITS | Encounter Summary ---
Author Organization [facility] Address [address] [place] [address] Care Team Providers Care Awning Hanger Name Role Phone Elsewhere, Pcp Primary Care Provider Unavailabl e Reason for Visit * Radiation Therapy (Routine) - Authorized Specialty Diagnoses / Procedures Referred By Misa dinero Referred To Contact Diagnoses Malignant Neoplasm Of Brain (HCC) Procedures Prior Auth Rad Tx [place] IMRT COMPLEX [place] GUIDANCE FOR LOC RAD TX [place] IMRT RADIOTHERAPY PLAN Genesis Aguilar M.D. [address] [place] [phone] [facility] Referral ID Status Reason Start Date Expiration Date V isits Requested Visits Authorized [id number] Authorized 05/15/2024 11/26/2024 30 30 Encounter Details Date Type Department Care Team (Latest Contact Info) Description 06/03/2024 10:00 AM CDT - 06/03/2024 11:59 PM CDT Hospital Encounter Department of Radiation Oncology in [place], [place] [address] [place] [phone] Genesis Aguilar M.D. [address] [place] [phone] Discharge Disposition: Home or Self Care Social [...] How often do you attend mandaeism or holiness serv ices? Patient declined 07/26/2021 [...] heating? Patient declined 07/26/2021 [facility] [place] - Occupational Stress Questionnaire Answer Date Recorded [...] mouth at bedtime. 04/29/2024 miscellaneous medical supply [facility] CPAP machine for home use at pressure: [...] documented as of this encounter Care Teams Awning Hanger Relationship Specialty Start Date End Date Elsewhere, Pcp PCP - General Family Medicine 09/09/21 documented as of this encounter
--- OUTSIDE RECORDS SUMMARY | 2024-08-26 11:22 | XMS_ITS | Encounter Summary ---
Author Organization [facility] Address [address] [place] [address] Care Team Providers Care Colleter Name Role Phone Elsewhere, Pcp Primary Care Provider Unavailabl e Reason for Visit * Radiation Therapy (Routine) - Authorized Specialty Diagnoses / Procedures Referred By Misa dinero Referred To Contact Diagnoses Malignant Neoplasm Of Brain (HCC) Procedures Prior Auth Rad Tx [place] IMRT COMPLEX [place] GUIDANCE FOR LOC RAD TX [place] IMRT RADIOTHERAPY PLAN Genesis Aguilar M.D. [address] [place] [phone] [facility] Referral ID Status Reason Start Date Expiration Date V isits Requested Visits Authorized [id number] Authorized 05/15/2024 11/26/2024 30 30 Encounter Details Date Type Department Care Team (Latest Contact Info) Description 05/23/2024 9:51 AM CDT - 05/23/2024 11:03 AM CDT Hospital Encounter Department of Radiation Oncology in [place], [place] [address] [place] [phone] Genesis Aguilar M.D. [address] [place] [phone] Discharge Disposition: Home or Self Care Social [...] How often do you attend yarsani or jehovah's witness serv ices? Patient declined 07/26/2021 Do you [...] 07/26/2021 [facility] - [...] mouth at bedtime. 04/29/2024 miscellaneous medical supply [facility] [place] [place] CPAP machine for home use at [...] on filedocumented in this encounter Care Teams Colleter Relationship Specialty Start Date End Date Elsewhere, Pcp PCP - General Family Medicine 09/09/21 documented as of this encounter
--- OUTSIDE RECORDS SUMMARY | 2024-08-26 11:22 | XMS_ITS | Encounter Summary ---
Author Organization [facility] Address [address] [place] [address] Care Team Providers Care Heel Blacker Name Role Phone Elsewhere, Pcp Primary Care Provider Unavailabl e Reason for Referral * Radiation Therapy (Routine) - Authorized Specialty Diagnoses / Procedures Referred By Misa garcia Referred To Contact Diagnoses Malignant Neoplasm Of Brain (HCC) Procedures Management Visit Genesis Aguilar M.D. [address] [place] [address] [facility] Region Referral ID Status Reason Start Date Expiration Date V isits Requested Visits Authorized [id number] Authorized 05/03/2024 05/03/2025 10 10 Reason for Visit * Radiation Therapy (Routine) - Authorized Specialty Diagnoses / Procedures Referred By Misa garcia Referred To Contact Diagnoses Malignant Neoplasm Of Brain (HCC) Procedures Management Visit Genesis Aguilar M.D. [address] [place] [address] [facility] Region Referral ID Status Reason Start Date Expiration Date V isits Requested Visits Authorized [id number] Authorized 05/03/2024 05/03/2025 10 10 Encounter Details Date Type Department Care Team (Latest Contact Info) Description 05/21/2024 2:35 PM CDT - 05/21/2024 4:59 PM CDT Hospital Encounter Department of Radiation Oncology in [place], [place] [address] [place] [phone] Genesis Aguilar M.D. [address] [place] [address] Malignant Neoplasm Of Brain (HCC) Social History [...] How often do you attend taoism or advent serv ices? 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 Patient is now undergoing radiation therapy concurrent with Temodar. 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
--- OUTSIDE RECORDS SUMMARY | 2024-08-26 11:22 | XMS_ITS | Encounter Summary ---
Author Organization [facility] Address [address] [place] [address] Care Team Providers Care First Coat Sander Name Role Phone Elsewhere, Pcp Primary Care Provider Unavailabl e Reason for Referral * Specialty Diagnoses / Procedures Referred By Misa dinero Referred To Contact Gaby Arrington APRN, C.N.P., D.N.P. [address] [place] [phone] [facility] Referral ID Status Reason Start Date Expiration Date Visits Re quested Visits Authorized Encounter Details Date Type Department Care Team (Latest Contact Info) Description 05/24/2024 9:46 AM CDT - 05/24/2024 2:34 PM CDT Hospital Encounter Department of Radiation Oncology in [place], [place] [address] [place] [phone] Genesis Aguilar M.D. [address] [place] [phone] Jessica Arevalo REndy [address] [place] [phone] Malignant Neoplasm Of Brain (HCC) Discharge [...] How often do you attend buddhist or holiness serv ices? Patient declined 07/26/2021 [...] care, and heating? Patient declined 07/26/2021 [facility] of Occupat ional Health - [...] Body Mass Index 34.07 10/08/2021 3:55 PM DNA ANALYST documented in this encounter Medications at Time [...] at bedtime. 04/29/2024 miscellaneous medical supply [facility] CPAP machine for home [...] (HCC) documented in this encounter Care Teams First Coat Sander Relationship Specialty Start Date End Date Elsewhere, Pcp PCP - General Family Medicine 09/09/21 documented as of this encounter
--- OUTSIDE RECORDS SUMMARY | 2024-08-26 11:22 | XMS_ITS | Encounter Summary ---
Author Organization [facility] Address [address] [place] [address] Care Team Providers Care Communication Instructor Name Role Phone Elsewhere, Pcp Primary Care Provider Unavailabl e Reason for Visit * Radiation Therapy (Routine) - Authorized Specialty Diagnoses / Procedures Referred By Misa dinero Referred To Contact Diagnoses Malignant Neoplasm Of Brain (HCC) Procedures Prior Auth Rad Tx [place] IMRT COMPLEX [place] GUIDANCE FOR LOC RAD [place] IMRT RADIOTHERAPY PLAN Genesis Aguilar M.D. [address] [place] [phone] [facility] Referral ID Status Reason Start Date Expiration Date V isits Requested Visits Authorized [id number] Authorized 05/15/2024 11/26/2024 30 30 Encounter Details Date Type Department Care Team (Latest Contact Info) Description 05/20/2024 10:00 AM CDT - 05/20/2024 11:59 PM CDT Hospital Encounter Department of Radiation Oncology in [place], [place] [address] [place] [phone] Genesis Aguilar M.D. [address] [place] [phone] Discharge Disposition: Home or Self Care Social [...] often do you attend jehovah's witness or holiness serv ices? Patient declined 07/26/2021 [...] heating? Patient declined 07/26/2021 [facility] - Occupational Stress [...] oxyCODONE (ROXICODONE) 5 mg immediate release tabletIndications:Ac shoshone-bannock Pain Take 1 tablet (5 mg total) [...] on filedocumented in this encounter Care Teams Communication Instructor Relationship Specialty Start Date End Date Elsewhere, Pcp PCP - General Family Medicine 09/09/21 documented as of this encounter
--- OUTSIDE RECORDS SUMMARY | 2024-08-26 11:22 | XMS_ITS | Encounter Summary ---
Author Organization [facility] Address [address] [place] [address] Care Team Providers Care Self Rising Flour Mixer Name Role Phone Elsewhere, Pcp Primary Care Provider Unavailabl e Reason for Referral * Outpatient (Routine) - Authorized Specialty Diagnoses / Procedures Referred By Contac t Referred To Contact Radiation Oncology Genesis Aguilar M.D. [address] [place] [phone] [facility] Region Referral ID Status Reason Start Date Expiration Date V isits Requested Visits Authorized [id number] Authorized 05/23/2024 11/22/2025 5 5 Reason for Visit * Outpatient (Routine) - Authorized Specialty Diagnoses / Procedures Referred By Misa dinero Referred To Contact Radiation Oncology Genesis Aguilar M.D. [address] [place] [phone] [facility] Region Referral ID Status Reason Start Date Expiration Date V isits Requested Visits Authorized [id number] Authorized 05/23/2024 11/22/2025 5 5 Encounter Details Date Type Department Care Team (Latest Contact Info) Description 05/27/2024 9:30 AM CDT - 05/27/2024 9:44 AM CDT Hospital Encounter Department of Radiation Oncology in [place], [place] [address] [place] [phone] Genesis Aguilar M.D. [address] [place] [phone] Jessica Arevalo R.N. [address] [place] [address] Malignant Neoplasm Of Brain (HCC) (Primary Dx) [...] declined 07/26/2021 How often do you attend scientology or moravian serv ices? Patient declined 07/26/2021 Do you belong to any clubs o r organizations such as scientology groups, unions, fraternal or athletic groups, or [...] medical care, and heating? Patient declined 07/26/2021 [facility] of Occupat ional Health - Occupational Stress [...] at bedtime. 04/29/2024 misc[facility] medical [place] [facility] CP[place] for home [...] total resection of a right temporal glioblastoma (METAL MOVER who grade 4), IDH negative. Patient is now undergoing radiation therapy concurrent with Temodar. The patient reports that he brought blood pressure medication to today's appointment instead of hisAtivan. He is requesting dose of Ativan. Patient confirms that he has not had alcohol today. Patient confirms that he has a driver's education instructor today to assist with transportation. Patient denies [...] documented as of this encounter Care Teams Self Rising Flour Mixer Relationship Specialty Start Date End Date Elsewhere, Pcp PCP - General Family Medicine 09/09/21 documented as of this encounter
--- OUTSIDE RECORDS SUMMARY | 2024-08-26 11:22 | XMS_ITS | Encounter Summary ---
Author Organization [facility] Address [address] [place] [phone] Care Team Providers Care Clin Tech Name Role Phone Elsewhere, Pcp Primary Care Provider Unavailabl e Reason for Visit * Radiation Therapy (Routine) - Authorized Specialty Diagnoses / Procedures Referred By Misa dinero Referred To Contact Diagnoses Malignant Neoplasm Of Brain (HCC) Procedures Prior Auth Rad Tx [place] IMRT COMPLEX [place] GUIDANCE FOR LOC RAD TX [place] IMRT RADIOTHERAPY PLAN Genesis Aguilar M.D. [address] [place] [phone] [facility] Referral ID Status Reason Start Date Expiration Date V isits Requested Visits Authorized [id number] Authorized 05/15/2024 11/26/2024 30 30 Encounter Details Date Type Department Care Team (Latest Contact Info) Description 05/24/2024 9:46 AM CDT - 05/24/2024 11:59 PM CDT Hospital Encounter Department of Radiation Oncology in [place], [place] [address] [place] [phone] Genesis Aguilar M.D. [address] [place] [phone] Discharge Disposition: Home or Self Care Social [...] How often do you attend jainism or muslim serv ices? Patient declined 07/26/2021 [...] declined 07/26/2021 [facility] - Occupational [...] on filedocumented in this encounter Care Teams Clin Tech Relationship Specialty Start Date End Date Elsewhere, Pcp PCP - General Family Medicine 09/09/21 documented as of this encounter
--- OUTSIDE RECORDS SUMMARY | 2024-08-26 11:22 | XMS_ITS | Encounter Summary ---
Author Organization [facility] Address [address] [place] [phone] Care Team Providers Care Successfactors Consultant Name Role Phone Elsewhere, Pcp Primary Care Provider Unavailabl e Reason for Visit * Radiation Therapy (Routine) - Authorized Specialty Diagnoses / Procedures Referred By Misa dinero Referred To Contact Diagnoses Malignant Neoplasm Of Brain (HCC) Procedures Prior Auth Rad Tx [place] IMRT COMPLEX [place] GUIDANCE FOR [place] RAD [place] IMRT RADIOTHERAPY PLAN Genesis Aguilar M.D. [address] [place] [phone] [facility] Referral ID Status Reason Start Date Expiration Date V isits Requested Visits Authorized [id number] Authorized 05/15/2024 11/26/2024 30 30 Encounter Details Date Type Department Care Team (Latest Contact Info) Description 05/22/2024 9:53 AM CDT - 05/22/2024 11:59 PM CDT Hospital Encounter Department of Radiation Oncology in [place], [place] [address] [place] [phone] Genesis Aguilar M.D. [address] [place] [phone] Discharge Disposition: Home or Self Care Social [...] How often do you attend catholic or alevism serv ices? Patient declined 07/26/2021 [...] [facility] - Occupational Stress [...] on filedocumented in this encounter Care Teams Successfactors Consultant Relationship Specialty Start Date End Date Elsewhere, Pcp PCP - General Family Medicine 09/09/21 documented as of this encounter
--- OUTSIDE RECORDS SUMMARY | 2024-08-26 11:22 | XMS_ITS | Encounter Summary ---
Author Organization [facility] Address [address] [place] [address] Care Team Providers Care Roofer Applicator Name Role Phone Elsewhere, Pcp Primary Care Provider Unavailabl e Reason for Referral * Outpatient (Routine) - Authorized Specialty Diagnoses / Procedures Referred By Contac t Referred To Contact Radiation Oncology Genesis Aguilar M.D. [address] [place] [phone] [facility] Region Referral ID Status Reason Start Date Expiration Date V isits Requested Visits Authorized [id number] Authorized 05/23/2024 11/22/2025 5 5 Reason for Visit * Outpatient (Routine) - Authorized Specialty Diagnoses / Procedures Referred By Misa dinero Referred To Contact Radiation Oncology Genesis Aguilar M.D. [address] [place] [phone] [facility] Region Referral ID Status Reason Start Date Expiration Date V isits Requested Visits Authorized [id number] Authorized 05/23/2024 11/22/2025 5 5 Encounter Details Date Type Department Care Team (Latest Contact Info) Description 05/23/2024 11:04 AM CDT - 05/23/2024 2:35 PM CDT Hospital Encounter Department of Radiation Oncology in [place], [place] [address] [place] [phone] Genesis Aguilar M.D. [address] [place] [phone] Reyna Christianson R.N. [address] [place] [phone] Malignant Neoplasm Of Brain (HCC) (Primary Dx) [...] How often do you attend adventist or congregational serv ices? Patient declined 07/26/2021 [...] medical care, and heating? 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 Patient verbalized that he would like [...] treatment and that he will need a tank truck driver for all treatments. Understanding was verbalized. [...] mg documented in this encounter Care Teams Roofer Applicator Relationship Specialty Start Date End Date Elsewhere, Pcp PCP - General Family Medicine 09/09/21 documented as of this encounter
--- OUTSIDE RECORDS SUMMARY | 2024-08-26 11:22 | XMS_ITS | Encounter Summary ---
Author Organization [facility] Address [address] [place] [address] Care Team Providers Care Grain Trader Name Role Phone Elsewhere, Pcp Primary Care Provider Unavailabl e Reason for Visit * Radiation Therapy (Routine) - Authorized Specialty Diagnoses / Procedures Referred By Misa dinero Referred To Contact Diagnoses Malignant Neoplasm Of Brain (HCC) Procedures Prior Auth Rad Tx [place] IMRT COMPLEX [place] GUIDANCE FOR LOC RAD [place] IMRT RADIOTHERAPY PLAN Genesis Aguilar M.D. [address] [place] [phone] [facility] Referral ID Status Reason Start Date Expiration Date V isits Requested Visits Authorized [id number] Authorized 05/15/2024 11/26/2024 30 30 Encounter Details Date Type Department Care Team (Latest Contact Info) Description 05/21/2024 2:34 PM CDT Hospital Encounter Department of Radiation Oncology in [place], [place] [address] [place] [phone] Genesis Aguilar M.D. [address] [place] [phone] Discharge Disposition: Home or Self Care Social [...] How often do you attend hoahaoism or mandaen serv ices? Patient declined 07/26/2021 [...] mouth at bedtime. 04/29/2024 miscellaneous medical supply [facility] CPAP [place] for home [...] oxyCODONE (ROXICODONE) 5 mg immediate release tabletIndications:Ac [place] Pain Take 1 tablet (5 mg total) [...] on filedocumented in this encounter Care Teams Grain Trader Relationship Specialty Start Date End Date Elsewhere, Pcp PCP - General Family Medicine 09/09/21 documented as of this encounter
--- OUTSIDE RECORDS SUMMARY | 2024-08-26 11:22 | XMS_ITS | Encounter Summary ---
Author Organization [facility] Address [address] [place] [address] Care Team Providers Care Loan Underwriter Name Role Phone Elsewhere, Pcp Primary Care Provider Unavailabl e Reason for Visit * Radiation Therapy (Routine) - Authorized Specialty Diagnoses / Procedures Referred By Misa dinero Referred To Contact Diagnoses Malignant Neoplasm Of Brain (HCC) Procedures Prior Auth Rad Tx [place] IMRT COMPLEX [place] GUIDANCE FOR LOC RAD TX [place] IMRT RADIOTHERAPY PLAN Genesis Aguilar M.D. [address] [place] [phone] [facility] Referral ID Status Reason Start Date Expiration Date V isits Requested Visits Authorized [id number] Authorized 05/15/2024 11/26/2024 30 30 Encounter Details Date Type Department Care Team (Latest Contact Info) Description 05/27/2024 9:45 AM CDT - 05/27/2024 11:59 PM CDT Hospital Encounter Department of Radiation Oncology in [place], [place] [address] [place] [phone] Genesis Aguilar M.D. [address] [place] [phone] Discharge Disposition: Home or Self Care Social [...] How often do you attend buddhist or islam serv ices? Patient declined 07/26/2021 [...] 07/26/2021 [facility] - Occupational Stress Questionnaire Answer [...] documented as of this encounter Care Teams Loan Underwriter Relationship Specialty Start Date End Date Elsewhere, Pcp PCP - General Family Medicine 09/09/21 documented as of this encounter
--- OUTSIDE RECORDS SUMMARY | 2024-08-26 11:23 | XMS_ITS | Clinical Summary ---
Author Organization [employer] [facility] Address [place], [place] [address] Care Team Providers Care Extern Name Role Phone Rodrigo Hughes MD Primary Care Provider [phone] Trini Pearson RN Unavailable AlekseyMarlenia DO Unavailable [phone] Jacobo Flores NP Unavailable [phone] [...] Encounters Date Type Department Care Team Description 08/26/2024 Telephone [facility] [address] [place] [address] Rodrigo Hughes MD Medication Management 08/23/2024 Telephone [facility] [address] [place] [phone] Sonu Brown MD Follow Up 08/23/2024 Orders Only [facility] [address] [place] [phone] Jacobo Flores NP <No scans attached> 08/20/2024 Telephone [facility] [address] [facility] [address] [place] [phone] Shannon Ryder DO Oncology Nurse Navigation 08/14/[address] [facility] [phone] Deonna Iverson Care Guide 08/14/2024 Telephone [facility] [address] [facility] [address] [place] [phone] Shannon Ryder DO Oncology Nurse Navigation 08/09/2024 10:00 AM CDT Office Visit [facility] [address] [facility] [address] [place] [phone] Maggy Gerardo MD Headache 08/09/2024 Travel 08/08/2024 Telephone [facility] [address] [facility] [address] [place] [phone] Shannon Ryder DO Oncology Nurse Navigation 08/02/2024 Orders Only [facility] [address] [facility] [address] [place] [address] Shannon Ryder DO <No scans attached> 08/02/2024 Refill [facility] [address] [place] [phone] Shannon Ryder DO Refill Request 08/01/2024 Telephone [facility] [address] [place] [address] Shannon Ryder DO Oncology Nurse Navigation ([facility] ) 07/30/2024 Telephone [facility] [address] [place] [address] Shannon Ryder DO Oncology Nurse Navigation 07/26/2024 10:45 AM CDT Office Visit [facility] [address] [place] [phone] Shannon Ryder DO Follow Up 07/26/2024 7:57 AM CDT - 07/26/2024 11:59 PM CDT Hospital Encounter [facility] [address] [place] [address] Shannon Ryder DO Glioblastoma (HC); Acute intractable headache, unspecified headache type; Cellulitis of right leg 07/26/2024 Telephone [facility] [address] [place] [address] Pretty Thorne MD 07/26/2024 Travel 07/22/2024 Telephone [facility] [address] [facility] [address] [place] [phone] Shannon Ryder DO Oncology Nurse Navigation 07/22/2024 Telephone [facility] [phone] Deonna Iverson 07/18/2024 Telephone [facility] [address] [place] [phone] Jacobo Flores NP Oncology Nurse Navigation (Labs) 07/16/2024 Orders Only [facility] Staff, Other Clinical 1 scan: (1-Ord) [facility] 07/11/2024 Telephone [facility] [address] [place] [address] Shannon Ryder DO Oncology Nurse Navigation 07/09/2024 Telephone [facility] [address] [place] [address] Shannon Ryder DO Oncology Nurse Navigation 07/03/2024 11:45 AM CDT Office Visit [facility] [address] [place] [address] Shannon Ryder DO Follow Up 07/03/2024 8:30 AM CDT Home Visit [facility] [phone] Deonna Iverson Care Guide (Visit) 07/03/2024 6:42 AM CDT - 07/03/2024 11:59 PM CDT Hospital Encounter [facility] [address] [place] [address] Shannon Ryder DO Glioblastoma (HC) 07/03/2024 Refill [facility] [address] [place] [address] Shannon Ryder DO Refill Request 07/03/2024 Travel 06/28/2024 Telephone [facility] [address] [place] [phone] 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 Nurse Navigation 06/27/2024 Telephone [facility] [address] [place] [phone] Jacobo Flores NP Oncology Nurse Navigation 06/25/2024 Telephone [facility] [address] [place] [phone] Lydia Curtis, [facility] Social Work Contact 06/21/2024 Telephone [facility] [address] [place] [address] Jacobo Flores NP Oncology Nurse Navigation 06/20/2024 Telephone [facility] [address] [place] [address] Jacobo Flores NP Oncology Nurse Navigation 06/10/2024 1:00 PM CDT Office Visit [facility] [address] [place] [phone] Jacobo Flores NP Follow Up (pressure headaches ) 06/10/2024 Telephone [facility] [address] [place] [address] Jacobo Flores NP Oncology Nurse Navigation 06/10/2024 Travel 06/09/2024 Telephone [facility] [address] [place] [address] Sonu Brown MD Headache 06/04/2024 Telephone [facility] [address] [place] [address] Shannon Ryder, Oncology Nurse Navigation 05/27/2024 Telephone [facility] [address] [place] [address] Shannon Ryder DO Medication Management 05/27/2024 Telephone [facility] [address] [place], [place] [phone] Pretty Thorne MD Prior Authorization (glycopyrronium tosylate (Qbrexza) 2.4 % towl EXCLUDED) from Last 3 Months Immunizations Name Administration [...] Description 09/06/2024 10:30 AM CDT Office Visit [facility] [address] [place] [address] Maggy Gerardo MD [address] [place] [address] 09/23/2024 8:00 AM CDT Appointment [facility] [address] [place] [address] 09/23/2024 9:45 AM CDT Office Visit [facility] [address] [place] [address] Shannon Ryder DO [address] [place] [address] Health Maintenance Due Date Last Done Comments [...] Completed 05/21/2012 Medical Devices Implanted Type Area Sql Server Dba Developer Device Identifier Shelf Expiration Date Model / Serial / Lot Dura Neuro 3x3in Duragen Plusnon-Sut - [id number] Implanted:Qty: 1 on 04/19/2024 by Gerardo Her MD at [facility] Right: [employer] 01/24/2027 DP-1033 / / [id number] Screw Neuro 4mm Matrixneuro Slf Drill Titnm - [id number] Implanted:Qty: 12 on 04/19/2024 by Gerardo Her MD at [facility] Right: [employer]ium [employer] Dep[employer] CMF [id number] 4.01 / / [place] Cover Neuro 17mm Synthes Low Pro Titnm - [id number] Implanted:Qty: 3 on 04/19/2024 by Gerardo Her MD at [facility] Right: [employer] CMF [id number] / / Procedures Procedure Name Priority Date/Time Associated Diagnosis Comments SCAN CORRESP-LABORATORY RESULTS 08/22/2024 3:17 PM CDT SCAN CORRESP-IMAGING 08/22/2024 3:17 PM CDT SCAN CORRESP-LABORATORY RESULTS 08/20/2024 3:05 PM CDT [...] Health Maintenance Results * SCAN CORRESP-LABORATORY RESULTS (08/22/2024 3:17 PM CDT) Only the most recent of12 resultswithin the time period is included. Narrative 08/22/2024 3:17 PM CDT Ordered by an unspecified provider. Other Clinical Staff OTHER * SCAN CORRESP-IMAGING (08/22/2024 3:17 PM CDT) Only the most recent of2 resultswithin the time period is included. Anatomical Region Laterality Modality Other Narrative 08/22/2024 3:17 PM CDT Ordered by an unspecified provider. Other Clinical Staff OTHER * TOXOPLASMA GONDII PCR BLOOD OR CSF (07/26/2024 12:56 PM CDT) TOXOPLASMA GONDII PCR Negative Negative 08/04/2024 10:06 PM CDT [facility] Comment: No Toxoplasma gondii DNA detected. This test was developed and its performance characteristics determined by [employer]. It has not been cleared or approved by the U.S. Food and Drug Administration. The FDA has determined that such clearance or approval is not necessary. This test is used for clinical purposes. It should not be regarded as investigational or research. Other BLOOD SPECIMEN / Unknown Venipuncture / Unknown 07/26/2024 12:56 PM CDT 07/26/2024 1:02 PM CDT Narrative [facility] - 08/04/2024 10:06 PM CDT Performed at: [address] ??[id number] Pumping Supervisor: Fauzia Harmon MD, Phone: ??[phone] Shannon Ryder DO SEND OUTS [facility] ([facility]) [address] [place] [address], * (ABNORMAL) CBC WITH AUTO DIFFERENTIAL (07/26/2024 12:56 PM CDT) WHITE BLOOD COUNT 6.6 4.5 - 11.0 thou/cu mm 07/26/2024 1:[address] [facility] RED BLOOD COUNT 3.59(L) 4.30 - 5.90 mil/cu mm 07/26/2024 1:[address] [facility] HEMOGLOBIN 13.3(L) 13.5 - 17.5 g/dL 07/26/2024 1:[address] [facility] HEMATOCRIT 37.2 37.0 - 53.0 % 07/26/2024 1:[address] [facility] MCV 104(H) 80 - 100 fL 07/26/2024 1:[address] [facility] MCH 37.0(H) 26.0 - 34.0 pg 07/26/2024 1:[address] [facility] MCHC 35.8 32.0 - 36.0 g/dL 07/26/2024 1:[address] [facility] RDW 13.9 11.5 - 15.5 % 07/26/2024 1:[address] [facility] PLATELET COUNT 156 140 - 440 thou/cu mm 07/26/2024 1:[address] [facility] MPV 8.1 6.5 - 11.0 fL 07/26/2024 1:[address] [facility] NRBC 0.3 % 07/26/2024 1:[address] [facility] ABS NRBC 0.0 thou /cu mm 07/26/2024 1:[address] [facility] % NEUT 80.2 % 07/26/2024 1:[address] [facility] % LYMPH 9.4 % 07/26/2024 1:[address] [facility] % MONO 5.9 % 07/26/2024 1:[address] [facility] % EOS 0.2 % 07/26/2024 1:[address] [facility] % BASO 0.2 % 07/26/2024 1:[address] [facility] % IMMATURE GRAN (METAS,MYELOS,OH OS) 4.1 % 07/26/2024 1:[address] [facility] ABSOLUTE NEUTROPHILS 5.3 1.7 - 7.0 thou/cu mm 07/26/2024 1:[address] [facility] ABSOLUTE LYMPHOCYTES 0.6(L) 0.9 - 2.9 thou/cu mm 07/26/2024 1:[address] [facility] ABSOLUTE MONOCYTES 0.4 <0.9 thou/cu mm 07/26/2024 1:[address] [facility] ABSOLUTE EOSINOPHILS 0.0 <0.5 thou/cu mm 07/26/2024 1:[address] [facility] ABSOLUTE BASOPHILS 0.0 <0.3 thou/cu mm 07/26/2024 1:[address] [facility] ABSOLUTE IMMATURE GRANULOCYTES(MET ,MYELOS,PROS) 0.3(H) <0.3 thou/cu mm 07/26/2024 1:[address] [facility] Blood BLOOD SPECIMEN / Unknown Venipuncture / Unknown 07/26/2024 12:56 PM CDT 07/26/2024 1:02 PM CDT [facility] - 07/26/2024 1:13 PM CDT This procedure was originally ordered at [facility]. This procedure was originally ordered at [facility]. Shannon Ryder DO HEMATOLOGY [facility] [address] [place] [address], * (ABNORMAL) COMP METABOLIC PANEL (07/26/2024 12:56 PM CDT) SODIUM 137 136 - 145 mmol/L 07/26/2024 1:[address] [facility] POTASSIUM 4.4 3.5 - 5.1 mmol/L 07/26/2024 1:[address] [facility] CHLORIDE 100 98 - 107 mmol/L 07/26/2024 1:[address] [facility] CO2,TOTAL 22 22 - 29 mmol/L 07/26/2024 1:[address] [facility] ANION GAP 15 5 - 18 07/26/2024 1:[address] [facility] GLUCOSE 110(H) 70 - 99 mg/dL 07/26/2024 1:[address] [facility] CALCIUM 9.5 8.6 - 10.0 mg/dL 07/26/2024 1:[address] [facility] BUN 25(H) 6 - 20 mg/dL 07/26/2024 1:[address] [facility] CREATININE 0.70 0.70 - 1.20 mg/dL 07/26/2024 1:[address] [facility] BUN/CREAT RATIO 36(H) 10 - 20 1:[address] [facility] eGFR >90 >90 mL/min/1.7 3m2 07/26/2024 1:[address] [facility] Comment:As of 2022, eG FR is calculated by the CKD-EPI creatinine equation without race adjustment. ??eGFR can be influenced by muscle mass, exercise, and diet. ??The reported eGFR is an estimation only and is only applicable if the renal function is stable. ALBUMIN 4.2 4.0 - 4.9 g/dL 07/26/2024 1:[address] [facility] PROTEIN,TOTAL 6.8 6.0 - 8.0 g/dL 07/26/2024 1:[address] [facility] BILIRUBIN,TOTAL 0.3 0.0 - 1.2 mg/dL 07/26/2024 1:[address] [facility] ALK PHOSPHATASE 64 40 - 129 IU/L 07/26/2024 1:[address] [facility] ALT (SGPT) 25 10 - 50 IU/L 07/26/2024 1:[address] [facility] AST (SGOT) 21 10 - 50 IU/L 07/26/2024 1:[address] [facility] Blood BLOOD SPECIMEN / Unknown Venipuncture / Unknown 07/26/2024 12:56 PM CDT 07/26/2024 1:03 PM CDT Shannon Ryder DO [facility] [address] [place] [address], * MR HEAD BRAIN VENOGRAM WWO (07/26/2024 [...] and following intravenous contrast. MRV head: T1, yxmx-lv-zjqtrb, T1 post-contrast MRV images of the head. [...] to 1.4 cm (series 6 image 67). Klmed-ab-extflwws FLAIR hyperintensity within the anterior right temporal [...] to and followingintravenous contrast. MRV head: T1, gool-is-uhxxlz, T1 post-contrast MRV images of the head. [...] to 1.4 cm (series 6 image 67). Kxkog-lj-ixehzwin FLAIR hyperintensity within the anterior right temporallobe, [...] @ 07/26/2024 10:39:51 AM (Electronically Signed) Shannon Hradenike DO MR * MR HEAD W WO [...] and following intravenous contrast. MRV head: T1, qjtq-hr-qjkksf, T1 post-contrast MRV images of the head. [...] to 1.4 cm (series 6 image 67). Nlhls-aq-fcwfhsck FLAIR hyperintensity within the anterior right temporal [...] to and followingintravenous contrast. MRV head: T1, hazr-ca-rhkeyc, T1 post-contrast MRV images of the head. [...] to 1.4 cm (series 6 image 67). Ejdwn-kx-ageyoumh FLAIR hyperintensity within the anterior right temporallobe, [...] CHOLESTEROL,TOTA L 257(H) 100 - 199 mg/dL [facility] TRIGLYCERIDES 514(H) <150 mg/dL [facility] HDL CHOLESTEROL 54 >40 mg/dL [facility] CHOL/HDL RATIO 4.76(H) <4.50 [facility] NON-HDL CHOLESTEROL 203 Undefined mg/dL [facility] LDL CHOLESTEROL ?? Invalid LDL when Trig >400 reflexed to measured LDL. [facility] PATIENT STATUS Fasting [facility] Blood specimen (specimen) BLOOD SPECIMEN / Unknown 02/11/2014 8:12 AM CDT 02/11/2014 8:06 AM CDT Anali Bailey MD CHEMISTRY [facility] [place] ZIP [address] [place] [id number] from Last 3 Months or Most Recently Relevant to Health Maintenance Additional Health Concerns Infection Onset Date Last Indicated MRSA Comment:Order Contact Precaution Nares surveillance cultures needed to clear patient if <12 months since positive culture. If >12 months since positive culture, precautions can be discontinued if patient has no MRSA risk factors. 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, receiving hemodialysis, has chronic open wounds/skin damage, has long-term percutaneous indwelling medical devices Exclusions for nares collection (if <12 months since positive culture) include all of the previous exclusions plus patients on antibiotics 7 days prior to collection 11/28/2017 11/28/2017 Advance Directives Documents on File Type Date Recorded Patient Habilitative Interventionist Expl anation Healthcare Directive 04/25/2024 INVALID , MISSING PAGE, 04/25/2024 * Full Code (Latest Code Status on File) Date Activated Date Inactivated Comments 04/17/2024 8:30 AM 04/29/2024 4:53 PM Question Answer Comments Code Status Discussion: Reviewed Preferences * Full Code Date Activated Date Inactivated Comments 12/22/2016 11:17 PM 12/24/2016 8:25 PM Question Answer Comments Code Status Discussion: Per Existing Order Care Teams Extern Relationship Specialty Start Date End Date Rodrigo Hughes MD [address] [place] [address] PCP - General Family Practice 05/01/24 Trini Pearson RN [address] [address] Nurse Navigator - Oncology Registered Nurse 05/01/24 Shannon Ryder DO [address] [address] Neurooncology Neurology 05/01/24 Jacobo Flores NP [address] [address] Neurooncology Nurse Practitioner - Family 05/01/24
[2024-08-26 11:38] LABS: Lactate Sepsis w/Reflex* 1.2 mmol/L (0.5-1.9)
[2024-08-26 11:58] LABS: Albumin* 4.4 g/dL (3.3-5.0)
[2024-08-26 12:00] LABS: Bilirubin Direct* 0.4 mg/dL (0.0-0.5); Bilirubin Total* 0.9 mg/dL (0.1-1.5); Total Protein* 7.8 g/dL (6.0-8.3)
[2024-08-26 12:01] LABS: Alanine Aminotransferase* 30 U/L (4-50); Alkaline Phosphatase* 59 U/L (40-150); Aspartate Amino Transferase* 27 U/L (12-35)
[2024-08-26 12:02] LABS: D Dimer Quantitative* 1.63 ug/ml (0.00-0.50)
[2024-08-26 12:07] LABS: C Reactive Protein* < 0.5 mg/dL (0.5-1.0)
[2024-08-26 12:18] LABS: Procalcitonin* 0.07 ng/mL (<0.50)
[2024-08-26 12:19] LABS: PCR FLU A Negative PCR FLU A (Negative); PCR FLU B Negative PCR FLU B (Negative); PCR RSV Negative PCR RSV (Negative); SARS PCR* Negative SARS-CoV-2 (Negative)
--- NOTE | 2024-08-26 12:24 | CRLHL7_ITS ---
For Patients: As a result of the Century Cures Act, medical imaging exams and procedure reports are released immediately into your electronic medical record. You may view this report before your referring provider. If you have questions, please contact your health care provider. INDICATION: SOB. ELEVATED D DIMER, RECENT ELBOW SURG. TECHNIQUE: CT chest PE was acquired with 95 cc Omnipaque 350 IV contrast. COMPARISON: None. FINDINGS: Heart and vasculature: Contrast opacification of the pulmonary arterial tree is adequate. No sign of pulmonary embolism. Heart size is normal. Thoracic aorta and pulmonary artery are normal in caliber. Lungs and pleura: Mild patchy peripheral and perihilar ground-glass opacities in the right middle and lower lobes. Additional bibasilar subsegmental atelectasis. No pleural effusions, pleural thickening, or pneumothorax. Lymph nodes/mediastinum: No mediastinal, hilar, or axillary adenopathy. Chest wall: No masses. Upper abdomen: No acute or significant findings. Bones: Unremarkable for age. IMPRESSION: 1. No acute pulmonary embolism. 2. Mild patchy ground-glass opacities in the right middle and lower lobes which may be infectious/inflammatory in etiology. Please note that all CT scans at this facility use dose modulation, iterative reconstruction, and/or weight-based dosing when appropriate to reduce radiation dose to as low as reasonably achievable. Dictated by Hardik Albarran MD @ 08/26/2024 1:56:05 PM (Electronically Signed)
[2024-08-26 12:47] VITALS: BP 143/93; PULSE 81; RESP 16; O2SAT 96
--- NOTE | 2024-08-26 12:51 | ED_ITS ---
HPI - General Adult General Chief complaint: Weakness Stated complaint: 5 days s/p elbow surgery, fever, weakness Time Seen by Provider: 08/26/24 10:36 Source: patient, RN notes reviewed and old records reviewed Mode of arrival: ambulatory Limitations: no limitations History of Present Illness HPI narrative: Patient is a 49-year-old who I saw recently with an infected left olecranon bursa and cellulitis. He was admitted to the hospital, ended up having a washout of his elbow. Discharged home, then he had a dehiscence and was taken back to the operating room on the for a 2nd washout and re-closure of the wound. He has been in a splint of the left upper extremity since then, he has orthopedic follow-up coming up later this week he believes. He says the arm is feeling great, he has not had any pain, feels like the swelling is significantly improved. However, for the past 4 5 days he says he just felt generally weak, he notes that his temperature has been running in the 100.6-101 range consisten tly. He has felt somewhat short of breath, he denies cough however. He has a right lower extremity amputation, says the stump has been doing well. Has no complaints of swelling of the other leg. He has not had congestion or sore throat, denies significant myalgias, has not had vomiting or diarrhea, abdominal pain, urinary symptoms. 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 Had started chemotherapy, it has been held because of this elbow infection. He believes he is supposed to re start next week. Related Data Home Medications ?Medication ?Instructions ?Recorded ?Confirmed ibuprofen 200 mg tablet (Advil) 400 mg PO .4-6X/DAY PRN 04/15/24 08/26/24 aluminum chloride 20 % topical 1 applic topical QHS 08/14/24 08/26/24 solution clotrimazole-betamethasone 1 1 applic topical BID PRN 08/14/24 08/26/24 %-0.05 % topical cream levetiracetam 500 mg tablet 500 mg PO BID 08/14/24 08/26/24 loratadine-pseudoephedrine ER 10 1 tab PO DAILY PRN 08/14/24 08/26/24 mg-240 mg tablet,extended [id number] (Claritin-D 24 Hour) sildenafil (pulm.hypertension) 20 20 mg PO DAILY 08/14/24 08/26/24 mg tablet temozolomide 100 mg capsule 200 mg PO . DIREC 08/14/24 08/26/24 temozolomide 140 mg capsule 140 mg PO DIRECTED 08/14/24 08/26/24 topiramate 25 mg tablet 25 - 50 mg PO BID 08/14/24 08/26/24 Previous Rx's ?Medication ?Instructions ?Recorded gabapentin 300 mg capsule 900 - 1,200 mg (3 - 4 x 300 mg) PO 04/05/24 TID #900 caps losartan 100 mg tablet 100 mg PO QDAY #90 tabs 05/06/24 fluoxetine 40 mg capsule 40 mg PO QDAY #90 caps 05/21/24 naltrexone 50 mg tablet 50 mg PO QDAY #90 tabs 05/24/24 oxycodone 5 mg tablet 5 mg PO Q4H PRN pain #20 tabs 08/17/24 sulfamethoxazole 800 1 tab PO Q12H 7 days #14 tabs 08/17/24 mg-trimethoprim 160 mg tablet (Bactrim DS) oxycodone 5 mg tablet 5 mg PO Q4H PRN pain #15 tabs 08/21/24 sulfamethoxazole 800 1 tab PO Q12H 7 days #14 tabs 08/21/24 mg-trimethoprim 160 mg tablet sulfamethoxazole 800 1 tab PO BID 7 days #14 tabs 08/21/24 mg-trimethoprim 160 mg tablet (Bactrim DS) amoxicillin 875 mg tablet 875 mg PO BID #14 tabs 08/26/24 doxycycline hyclate 100 mg tablet 100 mg PO BID #14 tabs 08/26/24 oxycodone 5 mg tablet 5 mg PO Q6H PRN pain #8 tabs 08/26/24 Allergies Allergy/AdvReac Type Severity Reaction Status Date / Time No Known Drug Allergies Allergy Verified 08/26/24 13:44 Review of Systems Status of ROS: Reports: 10 or more systems reviewed and unremarkable except as noted in History and below PFSH [facility] Medical History History of MRSA infection ?Z86.14 - Personal history of Methicillin resistant Staphylococcus aureus infection (ICD-10) Tobacco use ?Z72.0 - Tobacco use (ICD-10) Immunocompromised ?D84.9 - Immunodeficiency, unspecified (ICD-10) Alcohol abuse ?F10.10 - Alcohol abuse, uncomplicated (ICD-10) Family history of colon cancer ?Z80.0 - Family history of malignant neoplasm of digestive organs (ICD-10) Erectile dysfunction ?N52.9 - Male erectile dysfunction, unspecified (ICD-10) Drug dependence ?F19.20 - Other psychoactive substance dependence, uncomplicated (ICD-10) Elevated liver enzymes ?R74.8 - Abnormal levels of other serum enzymes (ICD-10) Seasonal allergies ?J30.2 - Other seasonal allergic rhinitis (ICD-10) Adenomatous polyp of colon ?D12.6 - Benign neoplasm of colon, unspecified (ICD-10) Depression ?F32.A - Depression, unspecified (ICD-10) Anxiety ?F41.9 - Anxiety disorder, unspecified (ICD-10) Peripheral neuropathy ?G62.9 - Polyneuropathy, unspecified (ICD-10) Low back pain potentially associated with radiculopathy ?M54.50 - Low back pain, unspecified (ICD-10) Sleep apnea ?G47.30 - Sleep apnea, unspecified (ICD-10) Hypertension ?I10 - Essential (primary) hypertension (ICD-10) Hyperlipidemia ?E78.5 - Hyperlipidemia, unspecified (ICD-10) Fatty liver ?K76.0 - Fatty (change of) liver, not elsewhere classified (ICD-10) Balance problems ?R26.89 - Other abnormalities of gait and mobility (ICD-10) Glioblastoma of parietal lobe ?C71.3 - Malignant neoplasm of parietal lobe (ICD-10) Obesity (BMI 30-39.9) ?E66.9 - Obesity, unspecified (ICD-10) Surgical History H/O elbow surgery (08/21/24) ?Z98.890 - Other specified postprocedural states (ICD-10) H/O lower limb amputation ?Z89.619 - Acquired absence of unspecified leg above knee (ICD-10) S/P craniotomy ?Z98.890 - Other specified postprocedural states (ICD-10) Status post above-knee amputation of right lower extremity ?Z89.611 - Acquired absence of right leg above knee (ICD-10) History of oral surgery (05/21/12) ?Z98.890 - Other specified postprocedural states (ICD-10) Social History What is your current living situation?: I presently have a place to live Problems where you live: no known problems Problems where you live details: N/A In the past 12 months, utilities in danger of being shut off: no In past 12 months, lack of transportation kept you from medical appts, meetings, work, or getting things needed for daily living: no In the past 12 mos, have been you worried that your food would run out before you had money to buy more?: never true In the past 12 mos, the food you bought just didn't last and you didn't have money to buy more?: never true Highest level of school completed/degree received: high school graduate Smoking Status: Never smoker Do you use any of these nicotine containing products: None How often do you have a drink containing alcohol: 2-4 times a month AUDIT-C Alcohol total score: 2 Non-prescribed substance use: denies use Caffeine: Yes How often does anyone, including family, friends and others, physically hurt you : never How often does anyone, including family, friends and others, insult or talk down to you: never How often does anyone, including family, friends and others, threaten you with harm: never How often does anyone, including family, friends and others, scream or curse at you: never Little interest or pleasure in doing things: not at all Feeling down, depressed, or hopeless: not at all service: No Exam Narrative: Exam Narrative: Vital signs as noted above. In general, an alert, nontoxic male. Breathing easily. Head: Normocephalic, atraumatic. Eyes: Pupils are equal reactive. Extraocular movements are full. Conjunctivae are normal. ENT: Mucous membranes are slightly dry. Throat is normal. Neck: Supple without lymphadenopathy. Heart: Regular rate and rhythm. No murmur or rub. Lungs: Clear bilaterally. No increased work of breathing, crackles or wheezes. Abdomen: Soft and nontender. No organomegaly. Extremities: Left upper extremity was in a plaster splint, I did remove this, the arm is normal in appearance today, incision looks good, there is no significant erythema, no drainage, much improved to the last time I saw him. Right upper extremities normal, right lower extremity partial amputation. Left lower extremity no significant swelling, no calf tenderness. Neurologic: Patient is alert and oriented to person and place. Speech is fluent. Face is symmetric. Moves all extremities equally. Affect: Normal. Skin: Warm and dry. Well perfused. Const: Vital Signs, click to edit/add: Vital Signs - 24 hr 08/26/24 10:26 08/26/24 12:47 08/26/24 13:48 Temperature 96.7 F L Pulse Rate [Pulse Oximeter] 91 81 79 Respiratory Rate 18 16 16 Blood Pressure [Ri ght Upper Arm] 135/87 143/93 H 149/93 H Pulse Oximetry 95 96 96 Oxygen Delivery Me thod Room Air Room Air Room Air 08/26/24 14:00 Temperature 97.3 F L Pulse Rate [Pulse Oximeter] 81 Respiratory Rate 18 Blood Pressure [Ri ght Upper Arm] 141/92 H Pulse Oximetry 96 Oxygen Delivery Me thod Room Air Documenting provider has reviewed patient's vital signs: yes Course Course ED Course: Patient presents with somewhat nonspecific weakness and reported fevers at home after septic bursitis and cellulitis. His arm appears significantly improved. He is afebrile here, vital signs are normal. Diagnostic considerations would include a viral process such as COVID, pneumonia, pulmonary embolism, metabolic derangement, dehydration, or I think less likely at this point in time sepsis. Labs were notable for a normal CBC and metabolic panel, these were done prior to being seen here in the ER and I reviewed them in the chart. He had blood drawn today as an outpatient. He did have a normal lactate of 1.2, LFTs were normal, CRP was less than 0.5 and procalcitonin was 0.07. The D-dimer was elevated 1.63, of uncertain significance given all that he has been through in the past few months. However, with shortness of breath and weakness, prior cancer diagnosis and recent hospitalization I did elect to do a CT scan to rule out pulmonary embolism. By my review, there is no evidence of PE, he did have some airspace opacification in the right lower lobe. Final radiology read as follows:Patient: JOSE ROMERO Facility: [facility] Site . Site : 1975 Study: CT-Chest Angio 95CC ISOVUE 370-08/26/2024 1:44:26 PM Ordering Physician: Pilar Salter Final Report: INDICATION: SOB. ELEVATED D DIMER, RECENT ELBOW SURG. TECHNIQUE: CT chest PE was acquired with 95 cc Omnipaque 350 IV contrast. COMPARISON: None. FINDINGS: Heart and vasculature: Contrast opacification of the pulmonary arterial tree is adequate. No sign of pulmonary embolism. Heart size is normal. Thoracic aorta and pulmonary artery are normal in caliber. Lungs and pleura: Mild patchy peripheral and perihilar ground-glass opacities in the right middle and lower lobes. Additional bibasilar subsegmental atelectasis. No pleural effusions, pleural thickening, or pneumothorax. Lymph nodes/mediastinum: No mediastinal, hilar, or axillary adenopathy. Chest wall: No masses. Upper abdomen: No acute or significant findings. Bones: Unremarkable for age. IMPRESSION: 1. No acute pulmonary embolism. 2. Mild patchy ground-glass opacities in the right middle and lower lobes which may be infectious/inflammatory in etiology. Please note that all CT scans at this facility use dose modulation, iterative reconstruction, and/or weight-based dosing when appropriate to reduce radiation dose to as low as reasonably achievable. Dictated by Hardik Albarran MD @ 08/26/2024 1:56:05 PM (Electronic Signature) Well these could be infectious or inflammatory, given patient's reported fevers, weakness, shortness of breath think it would be prudent to treat this as infectious. I did recheck a temperature here, it remains normal. I do not see anything suggesting that he needs to stay in hospital today. I replaced the splint that I took down, this was a plaster splint but I did replace it with Ortho Glass based on what we had available here in the ER. He will need to follow up with Orthopedics later this week as planned. He requested oxycodone here, he has been taking it for his elbow but said it has been very helpful for his headaches as well. He said that he talked with the nurse at his [facility] and they suggested that he ask us to give him some more. I have given him 8 tablets, reviewed that if this is going to be more chronic medication it should be coming from his [facility]. He had 1 tablet here. Review of his records shows that he was on Bactrim for the past couple of weeks. I am going to put him on amoxicillin and doxycycline for community-acquired pneumonia. Return at any time for significant worsening, increased difficulty breathing, vomiting, shaking chills etcetera. Primary care follow-up in the next week for recheck. Vital Signs Vital signs: Initial Vital Signs Temperature 96.7 F L 08/26/24 10:26 Temperature Source Temporal Artery Scan 08/26/24 10:26 Pulse Rate 91 08/26/24 10:26 Respiratory Rate 18 08/26/24 10:26 Blood Pressure 135/87 08/26/24 10:26 Blood Pressure Mean 103 08/26/24 10:26 Blood Pressure Position Sitting 08/26/24 10:26 Pulse Oximetry 95 08/26/24 10:26 Oxygen Delivery Method Room Air 08/26/24 10:26 Vital Signs Temperature 96.7 F L 08/26/24 10:26 Pulse Rate 91 08/26/24 10:26 Respiratory Rate 18 08/26/24 10:26 Blood Pressure 135/87 08/26/24 10:26 Pulse Oximetry 95 08/26/24 10:26 Oxygen Delivery Method Room Air 08/26/24 10:26 Temperature 97.3 F L 08/26/24 14:00 Pulse Rate 81 08/26/24 14:00 Respiratory Rate 18 08/26/24 14:00 Blood Pressure 141/92 H 08/26/24 14:00 Pulse Oximetry 96 08/26/24 14:00 Oxygen Delivery Method Room Air 08/26/24 14:00 Medications Administered Medications: Discontinued Medications Generic Name Dose Route Start Last Admin Trade Name Freq PRN Reason Stop Dose Admin Oxycodone HCl 5 mg 08/26/24 14:30 08/26/24 14:35 Oxycodone 5 Mg Tablet PO 08/26/24 14:31 5 mg ONCE ONE Administration Medical Decision Making Lab Data Labs: Lab Results 08/26/24 08/26/24 08/26/24 Range/Units 11:08 11:26 11:30 D-Dimer Quant (PE/DVT) 1.63 H (0.00-0.50) ug/ml Lactate 1.2 (0.5-1.9) mmol/L Total Bilirubin 0.9 (0.1-1.5) mg/dL Direct Bilirubin 0.4 (0.0-0.5) mg/dL AST 27 (12-35) U/L ALT 30 (4-50) U/L Alkaline Phosphatase 59 (40-150) U/L C-Reactive Protein < 0.5 L (0.5-1.0) mg/dL Total Protein 7.8 (6.0-8.3) g/dL Albumin 4.4 (3.3-5.0) g/dL Procalcitonin 0.07 (<0.50) ng/mL SARS-CoV-2 (PCR) Negative SARS-CoV-2 (Negative) Influenza Type A (PCR) Negative PCR FLU A (Negative) Influenza Type B (PCR) Negative PCR FLU B (Negative) RSV (PCR) Negative PCR RSV (Negative) Discharge Plan Discharge Clinical Impression: Pneumonia Patient Disposition: Home, Self-Care Condition: Stable Instructions: Pneumonia (ED) Additional Instructions: Antibiotics as prescribed. Ibuprofen or Tylenol, oxycodone if needed for headache. Follow-up with orthopedics as planned later this week, follow-up with [facility] if needed regarding headaches. Return for worsening shortness of breath, worsening fevers, shaking chills, vomiting or other worsening. Please follow-up with your regular doctor in the next week for recheck. Prescriptions: New amoxicillin 875 mg tablet 875 mg PO BID Qty: 14 0RF doxycycline hyclate 100 mg tablet 100 mg PO BID Qty: 14 0RF oxycodone 5 mg tablet 5 mg PO Q6H PRN (Reason: pain) Qty: 8 0RF No Action ibuprofen [Advil] 200 mg tablet 400 mg PO .4-6X/DAY PRN losartan 100 mg tablet 100 mg PO QDAY Qty: 90 3RF aluminum chloride 20 % solution 1 applic topical QHS levetiracetam 500 mg tablet 500 mg PO BID loratadine-pseudoephedrine [Claritin-D 24 Hour] 10-240 mg tablet extended release 24 hr 1 tab PO DAILY PRN topiramate 25 mg tablet 25 - 50 mg PO BID Rx Instructions: TAKE 1 TAB TWICE A DAY FOR 7 DAYS, THEN INCREASE TO 2 TABS TWICE A DAY sildenafil (pulm.hypertension) 20 mg tablet 20 mg PO DAILY Rx Instructions: TAKES 1 TAB DAILY TO HELP URINATE AND OCCASIONALLY MORE THROUGHOUT THE DAY temozolomide 100 mg capsule 200 mg PO . DIREC Rx Instructions: must be taken on empty - 340 MG TOTAL - DAILY FOR 5 DAYS, THEN 23 DAYS OFF AND REPEAT temozolomide 140 mg capsule 140 mg PO DIRECTED Rx Instructions: must be taken on empty stomach - 340 MG TOTAL - 5 DAYS ON, 23 DAYS OFF AND REPEAT clotrimazole-betamethasone 1-0.05 % cream 1 applic topical BID PRN sulfamethoxazole-trimethoprim [Bactrim DS] 800-160 mg tablet 1 tab PO Q12H 7 Days Qty: 14 0RF oxycodone 5 mg tablet 5 mg PO Q4H PRN (Reason: pain) Qty: 20 0RF sulfamethoxazole-trimethoprim [Bactrim DS] 800-160 mg tablet 1 tab PO BID 7 Days Qty: 14 0RF oxycodone 5 mg tablet 5 mg PO Q4H PRN (Reason: pain) Qty: 15 0RF sulfamethoxazole-trimethoprim 800-160 mg tablet 1 tab PO Q12H 7 Days Qty: 14 0RF gabapentin 300 mg capsule 900 - 1,200 mg PO TID Qty: 900 1RF Rx Instructions: 900mg (3 capsules) morning and midday. 1200mg (4 capsules) HS fluoxetine 40 mg capsule 40 mg PO QDAY Qty: 90 1RF naltrexone 50 mg tablet 50 mg PO QDAY Qty: 90 3RF Follow Up/Referrals: Rodrigo Hughes MD [Primary Care Provider] - Stand Alone [facility] Instructions
[2024-08-26 13:48] VITALS: BP 149/93; PULSE 79; RESP 16; O2SAT 96
[2024-08-26 14:00] VITALS: BP 141/92; PULSE 81; RESP 18; TEMP 36.3; O2SAT 96
[2024-08-26] MEDS: OXYCODONE 5 MG TABLET PO (14:35)
[2024-08-26 14:46] VITALS: BP 148/90; PULSE 81; RESP 16; O2SAT 95
== END 2024-08-26 15:00 | disposition home or self-care (01) ==
PROVIDERS: Emergency Provider Emergency Medicine; PCP Family Medicine
DX: J18.9 Pneumonia, unspecified organism (principal)
CPT/HCPCS: 36415; 71045; 71275; 80053; 80076; 83605; 84145; 85025; 85379; 86140; 87040; 87631; 99284; A9270; Q9967

== ENCOUNTER 2024-10-21 22:06 | Outpatient (CLI) | payer OTHER, SELFPAY ==
--- OUTSIDE RECORDS SUMMARY | 2024-10-23 09:15 | XMS_ITS | Referral Summary ---
Author Organization [facility] Address [address] [place] [address] Care Team Providers Care Resident Buyer Name Role Phone Elsewhere, Pcp Primary Care Provider Unavailabl e Source Comments Patient records contain information from all sites at [facility]. For routine questions regarding patient records, call [phone] during business hours, M-F 8:00 AM - 5:00 PM Central Time. Record requests for emergency care only can be directed to [phone] at any time.[facility] Allergies No known active allergies Medications gabapentin [...] (11/18/2022): Added automatically from request for surgery [id number] Amputation Leg Above Knee Status Post Right 10/27 Overview (11/11/2019): Added automatically from request for surgery [id number] Pain Limb Generalized 09/04/2019 Overview (09/04/2019): Added automatically from request for surgery [id number] Amputation Leg Below Knee Status Post Left [...] How often do you attend pentecostalism or buddhist serv ices? Patient declined 07/26/2021 [...] care, and heating? Patient declined 07/26/2021 [facility] - [...] CDT Respiratory Rate 18 10/08/2021 4:40 PM ELECTRICAL SIGN SERVICER Oxygen Saturation 96% 10/08/2021 4:40 PM ELECTRICAL SIGN SERVICER Inhaled Oxygen Concentration - - Weight 115 kg (254 lb 10.1 oz) 06/26/2024 10:32 AM CDT Height 177.8 cm (5' 10) 10/08/2021 3:55 PM ELECTRICAL SIGN SERVICER Body Mass Index 36.54 10/08/2021 3:55 PM ELECTRICAL SIGN SERVICER Plan of Treatment Not on file Medical Devices Implanted Type Area Oyster Buyer Device Identifier Shelf Expiration Date Model / Serial / Lot [facility] 9.0 - [id number] Implanted:Qty : 1 on 09/09/2021 by Sanford Mena M.D. at [facility] Hardware e.g. pins/screws/ rods Right: Leg Ethicon [id number] 05/26/2026 MCS20 / / [id number] [facility] 9.[facility] - [id number] Implanted:Qty : 1 on 09/09/2021 by Sanford Mena M.D. at [facility] Hardware e.g. pins/screws/ rods Right: Leg Ethicon [id number] 05/26/2026 MSM20 / / [id number] Explanted Type Area Oyster Buyer Device Identifier Shelf Expiration Date Model / Serial / Lot Cmnt Bn Hi Visc Pmma 40 - [id number] Implanted:Qty: 1 on 11/15/2019 by Maude Shah M.D. at [facility] Explanted:Qty: 1 on 12/03/2019 by Sanford Mena M.D. at [facility] Bone Cement Right: Femur Aleta [id number] 6191-1-00 Description:7 antibiotic juaquin ent beads and 1 antibiotic cement dowel removed from right femur/leg Procedures Procedure Name Priority Date/Time Associated Diagnosis Comments CREATININE WITH EGFR, S/P Routine 12/18/2019 9:40 PM ELECTRICAL SIGN SERVICER Infection Of Amputation Stump Right Lower Extremity (HCC) BASIC METABOLIC PANEL, S/P Routine 11/19/2019 7:46 AM ELECTRICAL SIGN SERVICER from Last 3 Months or Most Recently Relevant to Health Maintenance Insurance [facility] Advance Directives For more information, please contact: [phone] * Full Code (Latest Code Status on [...] Answer Comments Full Code: Discussed Care Teams Resident Buyer Relationship Specialty Start Date End Date Elsewhere, Pcp PCP - General Family Medicine 09/09/21
--- OUTSIDE RECORDS SUMMARY | 2024-10-23 09:15 | XMS_ITS | Clinical Summary ---
Author Organization [facility] Address [address] [place] [address] Care Team Providers Care Wireless Architect Name Role Phone Elsewhere, Pcp Primary Care Provider Unavailabl e Source Comments Patient records contain information from all sites at [facility]. For routine questions regarding patient records, call [phone] during business hours, M-F 8:00 AM - 5:00 PM Central Time. Record requests for emergency care only can be directed to [phone] at any time.[facility] Allergies No known active allergies Medications [...] (11/18/2022): Added automatically from request for surgery [id number] Amputation Leg Above Knee Status Post Right 10/27 Overview (11/11/2019): Added automatically from request for surgery [id number] Pain Limb Generalized 09/04/2019 Overview (09/04/2019): Added automatically from request for surgery [id number] Amputation Leg Below Knee Status Post Left [...] often do you attend oriental orthodox or sikh serv ices? Patient declined 07/26/2021 [...] heating? Patient declined 07/26/2021 [facility] - Occupational [...] CDT Respiratory Rate 18 10/08/2021 4:40 PM [employer] Oxygen Saturation 96% 10/08/2021 4:40 PM [employer] Inhaled Oxygen Concentration - - Weight 115 kg (254 lb 10.1 oz) 06/26/2024 10:32 AM CDT Height 177.8 cm (5' 10) 10/08/2021 3:55 PM [employer] [facility] Body Mass Index 36.54 10/08/2021 3:55 PM [employer] [facility] Plan of Treatment Health Maintenance Due Date [...] this topic Medical Devices Implanted Type Area Shuttlecock Assembler Device Identifier Shelf Expiration Date Model / Serial / Lot [facility] Apr [facility] 9.0 - [id number] Implanted:Qty : 1 on 09/09/2021 by Sanford Mena M.D. at [facility] Hardware e.g. pins/screws/ rods Right: Leg Ethicon [id number] 05/26/2026 [id number] / / [id number] [facility] Apr [facility] - [id number] Implanted:Qty : 1 on 09/09/2021 by Sanford Mena M.D. at [facility] Hardware e.g. pins/screws/ rods Right: Leg Ethicon [id number] 05/26/2026 MSM20 / / [id number] Explanted Type Area Shuttlecock Assembler Device Identifier Shelf Expiration Date Model / Serial / Lot Cmnt Bn Hi Visc Pmma 40 - [id number] Implanted:Qty: 1 on 11/15/2019 by Maude Shah M.D. at [facility] Explanted:Qty: 1 on 12/03/2019 by Sanford Mena M.D. at [facility] Bone Cement Right: Femur Aleta [id number] 6191-1-00 1 / / Description:7 antibiotic juaquin ent beads and 1 antibiotic cement dowel removed from right femur/leg Procedures Procedure Name Priority Date/Time Associated Diagnosis Comments CREATININE WITH EGFR, S/P Routine 12/18/2019 9:40 PM [employer] [facility] Infection Of Amputation Stump Right Lower Extremity (HCC) BASIC METABOLIC PANEL, S/P Routine 11/19/2019 7:46 AM [employer] [facility] from Last 3 Months or Most Recently Relevant to Health Maintenance Insurance [facility] Address: [facility] [id number] [place] [id number] Advance Directives For more information, please contact: [phone] * Full Code (Latest Code Status on [...] Answer Comments Full Code: Discussed Care Teams Wireless Architect Relationship Specialty Start Date End Date Elsewhere, Pcp PCP - General Family Medicine 09/09/21
--- OUTSIDE RECORDS SUMMARY | 2024-10-23 09:15 | XMS_ITS | Clinical Summary ---
Author Organization [employer] [facility] [employer] Address [place], [place] [address] Care Team Providers Care Controls Engineer Name Role Phone Rodrigo Hughes MD Primary Care Provider [phone] Trini Pearson RN Unavailable [phone] NitzaShannon buckley DO Unavailable [phone] Jacobo Flores DIGITAL MARKETING INTERN Unavailable [phone] Madina Burgos DIGITAL MARKETING INTERN Unavailable Annie Cabrera RN, BSN Unavailable Allergies No known active allergies Medications Medication Sig Dispensed Refills Start Date End Date Status medication order composerIndications: Above knee amputation of right lower extremity (HC) Wheelchair Diagnosis: right below the knee amputation Lifetime. 1 unit 01/29/2018 Active CPAPIndications:CINDY on CPAP CPAP machine for home use at pressure: 13cn/H2O , Heated humidifier x 1, Humidifier chamber x 1, 1 unit 11 01/18/2019 Active CPAPIndications:CINDY on CPAP CPAP machine for [...] 1,200 mg by mouth at bedtime. Active loratadine-pseudoeph edrine (Claritin-D 24 Hour) 10-240 mg 24hr tablet Take 1 Tablet by mouth once daily. Active aluminum chloride (DRYSOL) 20 % external solutionIndications: Hyperhidrosis,AKA stump complication (HC),S/P AKA (above knee amputation) unilateral, right (HC) Apply topically to affected area(s) at bedtime. 35 mL 1 04/29/2024 Active sodium chloride 1,000 mg soluble tabletIndications:Hy ponatremia Take 1 Tablet (1,000 mg) by mouth or nasogastric tube two times daily. 30 Tablet 04/29/2024 Active melatonin 3 mg tabletIndications:In somnia, unspecified type Take 2 Tablets (6 mg) by mouth at bedtime. 30 Tablet 04/29/2024 Active ondansetron (ZOFRAN) 8 mg tabletIndications:Ch emotherapy induced nausea and vomiting Take one tablet by mouth 30 minutes prior to chemotherapy and every 8 hours as needed for breakthrough nausea. 30 Tablet 5 05/14/2024 Active glycopyrronium tosylate (Qbrexza) 2.4 % towlIndications:Hype rhidrosis Apply topically to affected area(s) once daily. 30 Each 05/21/2024 Active ibuprofen (AdviL) 200 mg tablet Take 200 mg by mouth every 6 hours. Active LORazepam (ATIVAN) 1 mg tablet Take 1 mg by mouth every 6 hours if needed. Active naltrexone (REVIA) 50 mg tabletIndications:Al cohol use disorder Take 1 Tablet (50 mg) by mouth once daily. 90 Tablet 1 06/10/2024 Active levETIRAcetam (Keppra) 500 mg tabletIndications:Gl ioblastoma (HC) Take 1 Tablet (500 mg) by mouth two times daily. 180 Tablet 3 06/20/2024 Active diazePAM (VALIUM) 10 mg tabletIndications:Gl ioblastoma (HC) Take 1 tablet (10 mg) at least 30 minutes prior to MRI scan on July 26 2024. 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 8 Tablet 2 08/30/2024 Active hospital bedIndications:Gliob lastoma (HC) As directed. Eleuterio Tafoya : 1975. Hospital Bed order for hx of glioblastoma and impaired mobility. 1 Each 08/30/2024 Active amoxicillin 875 mg tablet Take 1 Tablet by mouth two times daily. Active doxycycline 100 mg tablet Take 1 Tablet by mouth two times daily. Active DULoxetine (CYMBALTA) 30 mg Delayed-release capsuleIndications:A djustment disorder, unspecified type,Depression, unspecified depression type Take 1 Capsule (30 mg) by mouth once daily. 30 Capsule 2 09/15/2024 Active LORazepam (ATIVAN) 0.5 mg tabIndications:Gm trophobia,Glioblasto ma (HC) Take 4 tablets (2 mg total) 60 minutes prior to MRI Brain scan. If not effective, take 1 tablet (0.5 mg total) 60 minutes after first dose. 5 Tablet 09/17/2024 Active temozolomide (TEMODAR) 100 mg capsuleIndications:G lioblastoma (HC) Take 1 Capsule (100 mg) by mouth once daily with 1 other temozolomide prescription for 350 mg total for 5 doses. Take on Days 1-5 of each 28 day cycle. 5 Capsule 09/30/2024 4 temozolomide (TEMODAR) 250 mg capsuleIndications:G lioblastoma (HC) Take 1 Capsule (250 mg) by mouth once daily with 1 other temozolomide prescription for 350 mg total for 5 doses. Take on Days 1-5 of each 28 day cycle. 5 Capsule 09/30/2024 4 Active Problems Problem Noted Date Diagnosed Date [...] Encounters Date Type Department Care Team Description 10/22/2024 Orders Only [facility] Scanner 1 scan: (1-Ord) INCOMING RECORDS-LABS, [facility], 10/22/2024 10/22/2024 Telephone [facility] [address] [place] [address] Shannon Ryder DO Oncology Nurse Navigation 10/21/2024 [facility] [address] [place] [address] Rodrigo Hughes MD Vomiting 10/09/2024 Telephone [facility] [address] [facility] [address] [place] [phone] Sonya Gonsales, [facility] Social Work Visit 10/08/2024 12:45 PM ORTHOTIST OR PROSTHETIST Office Visit [facility] [address] [place] [address] Madina Burgos, DIGITAL MARKETING INTERN Follow Up 10/08/2024 Travel 10/07/2024 Telephone [facility] [address] [place] [address] Madina Burgos, DIGITAL MARKETING INTERN Appointment 10/02/2024 Telephone [facility] [address] [place] [address] Madina Burgos, DIGITAL MARKETING INTERN Appointment 09/30/2024 [facility] [address] [place] [address] Pretty Thorne MD 09/25/2024 2:45 PM CDT Office Visit [facility] [address] [facility] [address] [place] [address] Nancy Medley MD 09/25/2024 Telephone [facility] [address] [place] [address] Shannon Ryder DO Oncology Nurse Navigation 09/25/2024 Travel 09/23/2024 11:00 AM CDT Home Visit [facility] [phone] Deonna Iverson Care Guide (Visit) 09/23/2024 9:45 AM CDT Office Visit [facility] [address] [place] [phone] Shannon Ryder DO Follow Up (/) 09/23/2024 6:57 AM CDT - 09/23/2024 11:59 PM CDT Hospital Encounter [facility] [address] [place] [address] Jacobo Flores, CHUCK Encounter for therapeutic drug monitoring 09/23/2024 6:43 AM CDT - 09/23/2024 6:56 AM CDT Hospital Encounter [facility] [address] [place] [address] Shannon Ryder DO Glioblastoma (HC) 09/23/2024 Travel 09/18/2024 Orders Only [facility] [address] [place] [address] Madina Burgos, DIGITAL MARKETING INTERN <No scans attached> 09/17/2024 Patient Outreach [facility] [address] [place] [address] Annie Cabrera RN, BSN Cancer Rehab Care Coordination - [facility] 09/16/2024 Refill [facility] [address] [place] [phone] Shannon Ryder DO Refill Request (Lorazepam for MRI) 09/16/2024 Orders Only [facility] [address] [place] [phone] Jacobo Flores, CHUCK Error-please disregard 09/16/2024 Telephone [facility] [address] [place] [address] Madina Burgos, DIGITAL MARKETING INTERN Appointment 09/13/2024 8:45 AM CDT Office Visit [facility] [address] [place] [address] Madina Burgos, DIGITAL MARKETING INTERN Consult 09/13/2024 Travel 09/11/2024 Telephone [facility] [address] [place] [phone] Shannon Ryder DO Oncology Nurse Navigation 09/10/2024 Telephone [facility] [address] [place] [address] Lydia Curtis, [facility] Social Work Contact 09/06/2024 Telephone [facility] [address] [place] [address] Madina Burgos, DIGITAL MARKETING INTERN Appointment 09/02/2024 Telephone [facility] [address] [place] [phone] Maggy Gerardo MD Prior Authorization (rimegepant (Nurtec ODT) 75 mg orally disintegrating tablet APPROVED 09/02/2024-09/02/2025 ) 09/02/2024 Telephone [facility] [address] [phone] Maggy Gerardo MD Prior Authorization (Nurtec 75mg ODT tablets) 09/02/2024 Telephone [facility] [address] [phone] Shannon Ryder DO Follow Up 08/29/2024 Telephone [facility] [address] [phone] Shannon Ryder DO Palliative Care 08/27/2024 Telephone [facility] [address] [phone] aMggy Gerardo MD Refill Request (Patient called requesting to speak to Dr. Gerardo about getting an oxycodone prescription. ) 08/26/[address] [phone] Rodrigo Hughes MD Medication Management; Error-please disregard 08/23/2024 Telephone [facility] [address] [facility] [address] [place] [address] Sonu Brown MD Follow Up 08/23/2024 Orders Only [facility] [address] [place] [phone] Jacobo Flores NP <No scans attached> 08/20/2024 Telephone [facility] [address] [place] [phone] Shannon Ryder DO Oncology Nurse Navigation 08/14/2024 Telephone [facility] [phone] Deonna Iverson Care Guide 08/14/2024 Telephone [facility] [address] [place] [phone] Shannon Ryder DO Oncology Nurse Navigation 08/09/2024 10:00 AM CDT Office Visit [facility] [address] [place] [phone] Maggy Gerardo MD Headache 08/09/2024 Travel 08/08/2024 Telephone [facility] [address] [place] [address] Shannon Ryder DO Oncology Nurse Navigation 08/02/2024 Orders Only [facility] [address] [place] [address] Shannon Ryder DO <No scans attached> 08/02/2024 Refill [facility] [address] [place] [address] Shannon Ryder DO Refill Request 08/01/2024 Telephone [facility] [address] [place] [address] Shannon Ryder DO Oncology Nurse Navigation ([facility] ) 07/30/2024 Telephone [facility] [address] [place] [address] Shannon Ryder DO Oncology Nurse Navigation 07/26/2024 10:45 AM CDT Office Visit [facility] [address] [place] [address] Shannon Ryder DO Follow Up 07/26/2024 7:57 AM CDT - 07/26/2024 11:59 PM CDT Hospital Encounter [facility] [address] [place] [address] Shannon Ryder DO Glioblastoma (HC); Acute intractable headache, unspecified headache type; Cellulitis of right leg 07/26/2024 [facility] [address] [place] [address] Pretty Thorne MD 07/26/2024 Travel from Last 3 Months Immunizations Name Administration [...] Comments Blood Pressure 142/93 10/08/2024 12:23 PM ORTHOTIST OR PROSTHETIST Pulse 78 10/08/2024 12:23 PM ORTHOTIST OR PROSTHETIST Temperature 36.8 C (98.3 F) 10/08/2024 12:23 PM ORTHOTIST OR PROSTHETIST Respiratory Rate 17 10/08/2024 12:2 3 PM ORTHOTIST OR PROSTHETIST Oxygen Saturation 93% 10/08/2024 12: 23 PM ORTHOTIST OR PROSTHETIST Inhaled Oxygen Concentration - - Weight 106.8 kg (235 lb 6.4 oz) 024 12:23 PM ORTHOTIST OR PROSTHETIST Height 180.3 cm (5' 11) 04/17/2024 3:11 AM CDT Body Mass Index 32.83 04/17/2024 3:11 AM CDT Plan of Treatment Upcoming Encounters Date Type Department Care Team (Late st Contact Info) Description 10/31/2024 1:00 PM ORTHOTIST OR PROSTHETIST Appointment [facility] [address] [place] [address] Alexis Christiansen, PT [address] [place] [address] 11/11/2024 11:00 AM ORTHOTIST OR PROSTHETIST Office Visit [facility] [address] [phone] Nancy Medley MD [address] [place] [address] Nadir Smith, PsyD, LP [address] [place] [address] Jade Vincent, LN [address] [place] [address] Shannon Ryder DO [address] [place] [address] 11/18/2024 1:00 PM ORTHOTIST OR PROSTHETIST Appointment [facility] [address] [place] [address] 11/18/2024 2:45 PM ORTHOTIST OR PROSTHETIST Office Visit [facility] [address] [facility] [address] [place] [phone] Shannon Ryder DO [address] [facility] [address] [place] [address] 12/18/2024 12:45 PM ORTHOTIST OR PROSTHETIST Office Visit [facility] [address] [place] [address] Madina Burgos, DIGITAL MARKETING INTERN [address] [place], ELIZABETH [phone] Health Maintenance Due Date Last Done Comments [...] booster 05/21/2022 05/21/2012 (Comp leted outside of [facility]), 05/21/2012 Influenza for age 50-64 07/28/2024 11/28/2017 Tdap Completed 05/21/2012 Medical Devices Implanted Type Area Glove Cleaner Device Identifier Shelf Expiration Date Model / Serial / Lot Dura Neuro 3x3in Duragen Plusnon-Sut - [id number] Implanted:Qty: 1 on 04/19/2024 by Gerardo Her MD at [facility] Right: Cranium Infinit Shiloh 01/24/2027 DP-1033 / / [id number] Screw Neuro 4mm Matrixneuro Slf Drill Titnm - [id number] Implanted:Qty: 12 on 04/19/2024 by Gerardo Her MD at [facility] Right: Cranium J And J Depuy CMF [id number] 4.01 / / [place] Cover Neuro 17mm Synthes Low Pro Titnm - [id number] Implanted:Qty: 3 on 04/19/2024 by Gerardo Her MD at [facility] Right: Cranium J And J Depuy CMF [id number] / / Procedures Procedure Name Priority Date/Time Associated Diagnosis Comments SCAN CORRESP-LABORATORY RESULTS 10/22/2024 12:00 AM ORTHOTIST OR PROSTHETIST SCAN CORRESP-LABORATORY RESULTS 10/08/2024 1:35 PM ORTHOTIST OR PROSTHETIST SCAN CORRESP-LABORATORY RESULTS 10/02/2024 8:38 AM ORTHOTIST OR PROSTHETIST SCAN CORRESP-LABORATORY RESULTS 10/02/2024 8:38 AM ORTHOTIST OR PROSTHETIST SCAN CORRESP-LABORATORY RESULTS 09/24/2024 12:18 PM CDT [...] Health Maintenance Results * SCAN CORRESP-LABORATORY RESULTS (10/22/2024 12:00 AM ORTHOTIST OR PROSTHETIST) Only the most recent of13 resultswithin the time period is included. Scanner OTHER * MR HEAD W WO CONT [...] @ 09/23/2024 9:11:25 AM (Electronically Signed) Shannon Hradenike DO MR * (ABNORMAL) CBC WITH AUTO DIFFERENTIAL (09/23/2024 7:03 AM CDT) Only the most recent of2 resultswithin the time period is included. WHITE BLOOD COUNT 4.0(L) 4.5 - 11.0 thou/cu mm 09/23/2024 7:17 AM CDT [facility] RED BLOOD COUNT 3.94(L) 4.30 - 5.90 mil/cu mm 09/23/2024 7:17 AM CDT [facility] HEMOGLOBIN 13.1(L) 13.5 - 17.5 g/dL 09/23/2024 7:17 AM CDT [facility] HEMATOCRIT 40.0 37.0 - 53.0 % 09/23/2024 7:17 AM T [facility] MCV 102(H) 80 - 100 fL 09/23/2024 7:17 AM CDT [facility] MCH 33.2 26.0 - 34.0 pg 09/23/2024 7:17 AM T [facility] MCHC 32.8 32.0 - 36.0 g/dL 09/23/2024 7:17 AM [facility] RDW 13.4 11.5 - 15.5 % 09/23/2024 7:17 AM [facility] PLATELET COUNT 179 140 - 440 thou/cu mm 09/23/2024 7:17 AM [facility] MPV 8.8 6.5 - 11.0 fL 09/23/2024 7:17 AM [facility] NRBC 0.0 % 09/23/2024 7:17 AM [facility] ABS NRBC 0.0 thou /cu mm 09/23[facility]2024 [facility] % NEUT 53.7 % 09/23/2024 7:17 AM [facility] % LYMPH 33.3 % 09/23/2024 7:17 AM [facility] % MONO 10.1 % 09/23/2024 7:17 AM [facility] % EOS 1.8 % 09/23/2024 7:17 AM [facility] % BASO 0.8 % 09/23/2024 7:17 AM T [facility] % IMMATURE GRAN (METAS,MYELOS,WY OS) 0.3 % 09/23/2024 7:17 AM CDT [facility] ABSOLUTE NEUTROPHILS 2.1 1.7 - 7.0 thou/cu mm 09/23/2024 7:17 AM CDT [facility] ABSOLUTE LYMPHOCYTES 1.3 0.9 - 2.9 thou/cu mm 09/23/2024 7:17 AM CDT [facility] ABSOLUTE MONOCYTES 0.4 <0.9 thou/cu mm 09/23/2024 7:17 AM CDT [facility] ABSOLUTE EOSINOPHILS 0.1 <0.5 thou/cu mm 09/23/2024 7:17 AM CDT [facility] ABSOLUTE BASOPHILS 0.0 <0.3 thou/cu mm 09/23/2024 7:17 AM CDT [facility] ABSOLUTE IMMATURE GRANULOCYTES(MET ,MYELOS,PROS) 0.0 <0.3 thou/cu mm 09/23/2024 7:17 AM CDT [facility] Blood BLOOD SPECIMEN / Unknown Butterfly / Unknown 09/23/2024 7:03 AM CDT 09/23/2024 7:07 AM CDT Narrative [facility] - 09/23/2024 7:17 AM CDT This procedure was originally ordered at [facility]. This procedure was originally ordered at [facility]. Jacobo Flores NP HEMATOLOGY [facility] [address] [place] [address], * (ABNORMAL) COMP METABOLIC PANEL (09/23/2024 7:03 AM CDT) Only the most recent of2 resultswithin the time period is included. SODIUM 141 136 - 145 mmol/L 09/23/2024 7:39 AM CDT [facility] POTASSIUM 3.7 3.5 - 5.1 mmol/L 09/23/2024 7:39 AM CDT [facility] CHLORIDE 104 98 - 107 mmol/L 09/23/2024 7:39 AM CDT [facility] CO2,TOTAL 26 22 - 29 mmol/L 09/23/2024 7:39 AM [facility] ANION GAP 11 5 - 18 09/23/2024 7:39 AM [facility] GLUCOSE 98 70 - 99 mg/dL 09/23/2024 7:39 AM [facility] CALCIUM 9.6 8.6 - 10.0 mg/dL 09/23/2024 7:39 AM [facility] BUN 13 6 - 20 mg/dL 09/23/2024 7:39 AM [facility] CREATININE 0.72 0.70 - 1.20 mg/dL 09/23/2024 7:39 AM [facility] BUN/CREAT RATIO 18 10 - 20 7:39 AM [facility] eGFR >90 >90 mL/min/1.7 3m2 09/23/2024 7:39 AM [facility] Comment:As of 2022, eG FR is calculated by the CKD-EPI creatinine equation without race adjustment. eGFR can be influenced by muscle mass, exercise, and diet. The reported eGFR is an estimation only and is only applicable if the renal function is stable. ALBUMIN 4.2 4.0 - 4.9 g/dL 09/23/2024 7:39 AM [facility] PROTEIN,TOTAL 6.8 6.0 - 8.0 g/dL 09/23/2024 7:39 AM [facility] BILIRUBIN,TOTAL 0.5 0.0 - 1.2 mg/dL 09/23/2024 7:39 AM [facility] ALK PHOSPHATASE 53 40 - 129 IU/L 09/23/2024 7:39 AM [facility] ALT (SGPT) 118(H) 10 - 50 IU/L 09/23/2024 7:39 AM [facility] AST (SGOT) 84(H) 10 - 50 IU/L 09/23/2024 7:39 AM [facility] Blood BLOOD SPECIMEN / Unknown Butterfly / Unknown 09/23/2024 7:03 AM CDT 09/23/2024 7:07 AM CDT Jacobo Flores NP CHEMISTRY [facility] [address] [place] [address], [place] * SCAN CORRESP-IMAGING (08/22/2024 3:17 PM CDT) Only the most recent of2 resultswithin the time period is included. Anatomical Region Laterality Modality Other Narrative 08/22/2024 3:17 PM CDT Ordered by an unspecified provider. Other Clinical Staff OTHER * TOXOPLASMA GONDII PCR BLOOD OR CSF (07/26/2024 12:56 PM CDT) TOXOPLASMA GONDII PCR Negative Negative 08/04/2024 10:06 PM CDT [facility] Comment: No Toxoplasma gondii DNA detected. This test was developed and its performance characteristics determined by [employer]. It has not been cleared or approved by the U.S. Food and Drug Administration. The FDA has determined that such clearance or approval is not necessary. This test is used for clinical purposes. It should not be regarded as investigational or research. Other BLOOD SPECIMEN / Unknown Venipuncture / Unknown 07/26/2024 12:56 PM CDT 07/26/2024 1:02 PM CDT Narrative [facility] - 08/04/2024 10:06 PM CDT Performed at: - [address] [id number] Android Ui Developer: Fauzia Harmon MD, Phone: [phone] Shannon Ryder DO SEND OUTS [facility] ([facility]) [address] [place] [address], * MR HEAD BRAIN VENOGRAM WWO (07/26/2024 [...] and following intravenous contrast. MRV head: T1, [id number], T1 post-contrast MRV images of the head. [...] to 1.4 cm (series 6 image 67). Bfyfs-[id number] FLAIR hyperintensity within the anterior right temporal [...] to and followingintravenous contrast. MRV head: T1, [id number], T1 post-contrast MRV images of the head. [...] to 1.4 cm (series 6 image 67). [id number]-[id number] FLAIR hyperintensity within the anterior right temporallobe, [...] @ 07/26/2024 10:39:51 AM (Electronically Signed) Shannon SAENZ * (ABNORMAL) LIPID PANEL W REFLEX MEASURED LDL (02/11/2014 8:12 AM CDT) CHOLESTEROL,TOTA L 257(H) 100 - 199 mg/dL [facility] TRIGLYCERIDES 514(H) <150 mg/dL [facility] HDL CHOLESTEROL 54 >40 mg/dL [facility] CHOL/HDL RATIO 4.76(H) <4.50 [facility] NON-HDL CHOLESTEROL 203 Undefined mg/dL [facility] LDL CHOLESTEROL Invalid LDL when Trig >400 reflexed to measured LDL. [facility] PATIENT STATUS Fasting [facility] Blood specimen (specimen) BLOOD SPECIMEN / Unknown 02/11/2014 8:12 AM CDT 02/11/2014 8:06 AM CDT Anali Bailey MD CHEMISTRY [facility] [place]NAL ZIP [id number] [place] [address] from Last 3 Months or Most Recently Relevant to Health Maintenance Additional Health Concerns Infection Onset Date Last Indicated MRSA Comment:Order Contact Precaution Nares surveillance cultures needed to clear patient if <12 months since positive culture. If >12 months since positive culture, precautions can be discontinued if patient has no MRSA risk factors. 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 @ [facility], 07/22/19 @ [place], Soft tissue infection of right stump 10/2017 exclusions for contact precaution discontinuation (if > 12 months since positive culture): resides in acute/technician terminal and repeater care, receiving hemodialysis, has chronic open wounds/skin damage, has long-term percutaneous indwelling medical devices Exclusions for nares collection (if <12 months since positive culture) include all of the previous exclusions plus patients on antibiotics 7 days prior to collection 11/28/2017 11/28/2017 Advance Directives Documents on File Type Date Recorded Patient Sports Leadership Instructor Expl anation Power of Flatwork Ironer 04/25/2024 04/25/2024 Healthcare Directive 04/25/2024 INVALID , MISSING PAGE, 04/25/2024 * Full Code (Latest Code Status on File) Date Activated Date Inactivated Comments 04/17/2024 8:30 AM 04/29/2024 4:53 PM Question Answer Comments Code Status Discussion: Reviewed Preferences * Full Code Date Activated Date Inactivated Comments 12/22/2016 11:17 PM 12/24/2016 8:25 PM Question Answer Comments Code Status Discussion: Per Existing Order Care Teams Controls Engineer Relationship Specialty Start Date End Date Rodrigo Hughes MD [address] [place] [address] PCP - General Family Practice 05/01/24 Trini Pearson RN [address] [address] Nurse Navigator - Oncology Registered Nurse 05/01/24 Shannon Ryder DO [address] [address] Neurooncology Neurology 05/01/24 Jacobo Flores NP [address] [address] Neurooncology Nurse Practitioner - Family 05/01/24 Madina Burgos, DIGITAL MARKETING INTERN [address] [place] [id number] Nurse Practitioner Oncology 09/06/24 Annie Cabrera, RN, BSN [address] [address] Cancer Rehab Care Coordination - [facility] Registered Nurse 09/19/24
--- OUTSIDE RECORDS SUMMARY | 2024-10-23 09:15 | XMS_ITS ---
Author Organization [facility] Address [address] [place] [address] Care Team Providers Care Outboard Motor Mechanic Name Role Phone Unavailable Unavailable Unavailable Surgery Details Not on file Complications Check Surgery Details section. Procedure Estimated Blood Loss Check Surgery Details section. Procedure Findings Check Surgery Details section. Procedure Specimens Taken Check Surgery Details section.
--- OUTSIDE RECORDS SUMMARY | 2024-10-23 09:15 | XMS_ITS ---
Author Organization [facility] Address [address] [place] [address] Care Team Providers Care Floor Specialist Name Role Phone Elsewhere, Pcp Primary Care Provider Unavailabl e Active Problems Problem Noted Date Diagnosed Date Counseling Phase Of Life Problem 05/28/2024 Malignant Neoplasm Of Brain 04/24/2024 Cancer Staging:Pathologic stage from 04/19/2024:WHO G4- Unsigned Teeth Disorder 11/18/2022 Overview (11/18/2022): Added automatically from request for surgery [id number] Amputation Leg Above Knee Status Post Right 10/27 Overview (11/11/2019): Added automatically from request for surgery [id number] Pain Limb Generalized 09/04/2019 Overview (09/04/2019): Added automatically from request for surgery [id number] 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 Past Plans Radiation Treatments * Plan Last Treated On Elapsed Days Fractions Treated Prescribed Fraction Dose Prescribed Total Dose [id number] 07/02/2024 43 30 of 30 200 cGy 6,000 cGy Reference Point Last Treated On Elapsed Days Session Dose Total Dose [id number] 07/02/2024 43 200 cGy 6,000 cGy
--- OUTSIDE RECORDS SUMMARY | 2024-10-23 09:15 | XMS_ITS | Encounter Summary ---
Author Organization [facility] Address [address] [place] [address] Care Team Providers Care Electrical Project Engineer Name Role Phone Elsewhere, Pcp Primary Care Provider Unavailabl e Encounter Details Date Type Department Care Team (Late st Contact Info) Description 07/02/2024 Documentation Department of Radiation Oncology in [place], [place] [address] [place] [phone] Genesis Aguilar M.D. [address] [place] [phone] Social History Tobacco Use Types Packs/Day Years [...] medical care, and heating? [facility] - [facility]ational [...] (cGy) First Treatment Last Treatment Elapsed Days [id number] 200 6000 6000 05/20/2024 07/02/2024 43 Course [...] Jessica Arevalo R.N., 07/26/2024 4:06 PM CDT [facility] [address] [place], [place] [id number] Cosigned by Genesis Aguilar M.D. at 07/31/2024 8:12 AM CDT documented in this encounter Plan of Treatment Not on file documented as of this encounter Visit Diagnoses Diagnosis Malignant Neoplasm Of Brain (HCC)- Primary documented in this encounter Additional Health Concerns Infection Onset Date Last Indicated Resolved Time Protective Environment 05/27/2024 05/27/202407/26 5:47 AM CDT documented as of this encounter Care Teams Electrical Project Engineer Relationship Specialty Start Date End Date Elsewhere, Pcp PCP - General Family Medicine 09/09/21 documented as of this encounter
--- OUTSIDE RECORDS SUMMARY | 2024-10-23 09:15 | XMS_ITS | Data Portability ---
Author Organization [place] [facility] Address [address] [place] [address] Assessment No assessment recorded. Plan of Treatment Reminders Order Date Submit Date Provider Last Modified By Organization Details Last Modified Time Details Appointments None recorded. Lab None recorded. Referral None recorded. Procedures bladder scan (PROC) 2023 024 [email or web address] [facility], [address] [facility], [address], [place], [address], 14:14:58 Surgeries None recorded. Imaging None recorded. Medication Orders solifenacin 10 mg tablet 2023 024 [place] [id number], [address] [facility] [place], [place], [phone], 14:26:01 Patient TargetsNo targets recorded. Patient Instructions Encounter Date Encounter Id Patient Instructions Last Modified By Organization Details Last Modified Time 07/30/2024 [id number] will try solifenacin and rtc 6 weeks. [email or web address] Not available 07/30/2024 14:26:59 Reason for Referral None Reported. Results Created Date Observation Date Name Description Value Unit Range Abnormal Flag Note LastModifiedBy Organization Detail LastModifiedTime 07/30/20 24 07/30/2024 bladd er scan (PROC ) Volume (in mL) 16 ml Not Available [facility] [address] [facility], [place], [address], 07/22/2024 14:00:28 Result Notes None recorded. Problems Name Problem SNOMED Code Status Onset Date Resolution Date Notes Provider Name and Address Organization Details Recorded Time Urgent desire to urinate 95538446 Active 2023 Derrick Hodge MD [address] [place] [address],[address], [place], [phone], [facility] 4 14:25:07 Incontinence 63317111 Active 2023 Derrick Hodge MD [address] [place] [address],[address], [place], [phone], [facility] 4 14:25:08 Problem Notes None recorded. Procedures Surgical History Date Name Laterality Status Provider Name and Address Organization Details Recorded Time 4 Bladder Scan cancelled [facility] 08/22/2024 16:38:30 Bladder Scan completed Derrick Hodge MD [address] [place] [address],[address] [place] [address], [phone], [facility] 07/30/2024 14:14:27 destruction of brain tumor completed Derrick Hodge MD [address] [place] [address],[address], [place], [address], [facility] 07/30/2024 14:11:23 Imaging Results None recorded. Procedure [...] active Not Available Not Available Not Available [facility] ODT 75 mg disintegrat ing tablet DISSOLVE 1 TABLET ON THE TONGUE ONCE DAILY NEEDED FOR HEADACHE active Not Available Not Available No t Available Vitals Date Recorded Body height Body mass index (BMI) Body weight Provider Name and Address Organization Details Last Updated DateTime 07/30/2024 180.34 cm 32.8 kg/m2 078276.21 g Derrick Hodge MD [address] [place] [address],[address], [phone] 07/30/2024 14:07:09 Social History Question Answer Notes LastModified by Organizat ion Details LastModified Time Tobacco Smoking Status Never Smoker Derrick Hodge MD [address] [place] [address],[address], [address], [facility] 07/30/2024 14:10:43 What Is Your Level Of Alcohol Consumption? Occasional [email or web address] Information not available 07/30/2024 What Is Your Level Of Caffeine Consumption? Occasional [email or web address] Information not available 07/30/2024 What Was The Date Of Your Most Recent Tobacco Screening? 07/30/2024 [email or web address] Information not available 07/30/2024 Have You Ever Been Counseled For Unhealthy Alcohol Use? No [email or web address] Information not available 07/30/2024 Do You Use Any Illicit Or Recreational Drugs? No [email or web address] Information not available 07/30/2024 Sex: Unknown Functional Status None recorded. Mental Status None recorded. Family History Relationship Description Onset Age of this Age Resolved Age Notes LastModified by Organization Details LastModified Time Father Hernia repair [email or web address] Not available 07/30 14:10:16 Medical History Condition Response Diabetes N Sexually Transmitted Infection N Other N Bleeding Disorder N High Blood Pressure Y Kidney Stones N High Cholesterol N GERD/Acid Reflux N Heart Disease N Cancer Y Lung Disease N Depression Y Past Encounters Encounter ID Performer Location Encounter Start Date Encounter Closed Date Diagnosis/Indication Diagnosis SNOMED-CT Code Diagnosis ICD10 Code [id number] [facility] [address] [facility] [address] [place] [address] 07/30/2024 14:01:11 07/31/2024 10:57:56 Incontinence 75903536 R32 Urgent barbra maeve to urinate 13129096 R39.15 Health Concerns Section Related Observation LastModified [...] Derrick Hodge MD [address] [facility],[address], [place], [address], [facility] 07/30/2024 14:27:20
== END 2024-10-21 22:07 | disposition home or self-care (01) ==
LOC: AMB 10-23 09:12
PROVIDERS: PCP Family Medicine; Visit Provider Family Medicine
DX: R11.2 Nausea with vomiting, unspecified (principal)
CPT/HCPCS: A0425; A0427

== ENCOUNTER 2024-10-21 22:55 | Emergency (ER) | payer OTHER, SELFPAY ==
--- NOTE | 2024-10-21 23:01 | ED_ITS ---
HPI - General Adult General Time Seen by Provider: 23:01 <Pratima Keys MD - Last Filed: 10/23/24 09:09> Date Seen: 10/21/24 <Pratima Keys MD - Last Filed: 10/23/24 09:09> Chief complaint: Nausea/Vomiting <Pratima Keys MD - Last Filed: 10/23/24 09:09> Stated complaint: nausea, vomiting <Pratima Keys MD - Last Filed: 10/23/24 09:09> Time Seen by Provider: 10/21/24 22:56 <Pratima Keys MD - Last Filed: 10/23/24 09:09> Source: patient, EMS and RN notes reviewed <Pratima Keys MD - Last Johnie ed: 10/23/24 09:09> Mode of arrival: EMS <Pratima Keys MD - Last Filed: 10/23/24 09:09> History of Present Illness HPI narrative: This 49-year-old male is brought in by a EMS from home after calling triaged and advising to be evaluated. He called triage earlier stating he was pale and cold, had clammy skin. He had had nausea today and vomited over 15 times, felt dizzy and weak, difficulty getting up. He did take his oral chemo today, his dose was increased. It had been on hold for 2 months due to infection. He had diagnosis of a glioblastoma that was resected on 04/19/2024 at [facility]. He is followed at the given is a brain tumor center at [facility]. He did just start back on his Temodar for his glioblastoma. He has felt chilled throughout the day today but has not taken his temperature, states he does not have a thermometer. He states he has thrown up about 15 times today. He is stating he feels dry and is thirsty, wants water. Denies any cough or cold symptoms, no abdominal pain, no urinary symptoms. He has had his right lower extremity partially amputated for history of necrotizing fasciitis. He has had sepsis and septic shock due to group a Streptococcus. His Temodar did not give him these symptoms when he last took it but dose was increased this time. He is not aware of any ill contacts. EMS was unable to place an IV but did end up giving him 0.5 mg IM Ativan for his nausea and vomiting which has greatly improved his symptoms. Patient denies any diarrhea but thinks he might be able to have a stool, feels like that might be coming. <Pratima Keys MD - Last Filed: 10/23/24 09:09> Related Data Home medications: Home Medications ?Medication ?Instructions ?Recorded ?Confirmed ibuprofen 200 mg tablet (Advil) 400 mg PO .4-6X/DAY PRN 04/15/24 10/07/24 aluminum chloride 20 % topical 1 applic topical QHS 08/14/24 10/07/24 solution clotrimazole-betamethasone 1 1 applic topical BID PRN 08/14/24 10/07/24 %-0.05 % topical cream levetiracetam 500 mg tablet 500 mg PO BID 08/14/24 10/07/24 loratadine-pseudoephedrine ER 10 1 tab PO DAILY PRN 08/14/24 10/07/24 mg-240 mg tablet,extended [id number] (Claritin-D 24 Hour) sildenafil (pulm.hypertension) 20 20 mg PO DAILY 08/14/24 10/07/24 mg tablet temozolomide 100 mg capsule 200 mg PO . DIREC 08/14/24 10/07/24 temozolomide 140 mg capsule 140 mg PO DIRECTED 08/14/24 10/07/24 rimegepant 75 mg disintegrating 75 mg PO DAILY PRN headache 09/24/24 10/07/24 tablet (Nurtec ODT) Previous Rx's ?Medication ?Instructions ?Recorded gabapentin 300 mg capsule 900 - 1,200 mg (3 - 4 x 300 mg) PO 04/05/24 TID #900 caps losartan 100 mg tablet 100 mg PO QDAY #90 tabs 05/06/24 fluoxetine 40 mg capsule 40 mg PO QDAY #90 caps 05/21/24 naltrexone 50 mg tablet 50 mg PO QDAY #90 tabs 05/24/24 lorazepam 1 mg tablet 0.5 - 1 mg (0.5 - 1 x 1 mg) PO TID 10/22/24 PRN nausea and vomiting #20 tabs <Pratima Keys MD - Last Filed: 10/23/24 09:09> Allergies/adverse reactions: Allergies Allergy/AdvReac Type Severity Reaction Status Date / Time No Known Drug Allergies Allergy Verified 10/07/24 13:28 <Pratima Keys MD - Last Filed: 10/23/24 09:09> Review of Systems Status of ROS: Reports: 6 or more systems reviewed and unremarkable except as noted in History and below <Pratima Keys MD - Last Filed: 10/23/24 09:09> [facility] Medical History: Medical History Headache (04/17/24) ?R51.9 - Headache, unspecified (ICD-10) 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) ?C71.9 - Malignant neoplasm of brain, unspecified (ICD-10) Lesion of brain (04/17/24) ?G93.9 - Disorder of brain, unspecified (ICD-10) Cerebral edema (04/17/24) ?G93.6 - Cerebral edema (ICD-10) 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 has 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 for property History of MRSA infection ?Z86.14 - Personal history of Methicillin resistant Staphylococcus aureus infection (ICD-10) Tobacco use ?Z72.0 - Tobacco use (ICD-10) Immunocompromised ?D84.9 - Immunodeficiency, unspecified (ICD-10) Alcohol abuse ?F10.10 - Alcohol abuse, uncomplicated (ICD-10) Family history of colon cancer ?Z80.0 - Family history of malignant neoplasm of digestive organs (ICD-10) Erectile dysfunction ?N52.9 - Male erectile dysfunction, unspecified (ICD-10) Drug dependence ?F19.20 - Other psychoactive substance dependence, uncomplicated (ICD-10) Elevated liver enzymes ?R74.8 - Abnormal levels of other serum enzymes (ICD-10) Seasonal allergies ?J30.2 - Other seasonal allergic rhinitis (ICD-10) Adenomatous polyp of colon ?D12.6 - Benign neoplasm of colon, unspecified (ICD-10) Depression ?F32.A - Depression, unspecified (ICD-10) Anxiety ?F41.9 - Anxiety disorder, unspecified (ICD-10) Peripheral neuropathy ?G62.9 - Polyneuropathy, unspecified (ICD-10) Low back pain potentially associated with radiculopathy ?M54.50 - Low back pain, unspecified (ICD-10) Sleep apnea ?G47.30 - Sleep apnea, unspecified (ICD-10) Hypertension ?I10 - Essential (primary) hypertension (ICD-10) Hyperlipidemia ?E78.5 - Hyperlipidemia, unspecified (ICD-10) Fatty liver ?K76.0 - Fatty (change of) liver, not elsewhere classified (ICD-10) Balance problems ?R26.89 - Other abnormalities of gait and mobility (ICD-10) Glioblastoma of parietal lobe ?C71.3 - Malignant neoplasm of parietal lobe (ICD-10) Obesity (BMI 30-39.9) ?E66.9 - Obesity, unspecified (ICD-10) <Pratima Keys MD - Last Filed: 10/23/24 09:09> Surgical History: Surgical History H/O elbow surgery (08/21/24) ?Z98.890 - Other specified postprocedural states (ICD-10) H/O lower limb amputation ?Z89.619 - Acquired absence of unspecified leg above knee (ICD-10) S/P craniotomy ?Z98.890 - Other specified postprocedural states (ICD-10) Status post above-knee amputation of right lower extremity ?Z89.611 - Acquired absence of right leg above knee (ICD-10) History of oral surgery (05/21/12) ?Z98.890 - Other specified postprocedural states (ICD-10) <Pratima Keys MD - Last Filed: 10/23/24 09:09> Social History: Social History What is your current living situation?: I presently have a place to live Problems where you live: no known problems Problems where you live details: N/A In the past 12 months, utilities in danger of being shut off: no In the past 12 mos, have been you worried that your food would run out before you had money to buy more?: never true In the past 12 mos, the food you bought just didn't last and you didn't have money to buy more?: never true Highest level of school completed/degree received: high school graduate Smoking Status: Never smoker Do you use any of these nicotine containing products: None How often do you have a drink containing alcohol: 2-4 times a month AUDIT-C Alcohol total score: 2 Non-prescribed substance use: denies use Caffeine: Yes How often does anyone, including family, friends and others, physically hurt you : never How often does anyone, including family, friends and others, insult or talk down to you: never How often does anyone, including family, friends and others, threaten you with harm: never How often does anyone, including family, friends and others, scream or curse at you: never service: No <Pratima Keys MD - Last Filed: 10/23/24 09:09> Exam Const: Vital Signs, click to edit/add: Vital Signs - 24 hr 10/21/24 23:07 Temperature 98.5 F Pulse Rate [Left P ulse Oximeter] 68 Respiratory Rate 18 Blood Pressure [Ri ght Forearm] 173/103 H Pulse Oximetry 94 Oxygen Delivery Me thod Room Air Jose is a 49-year-old male that is alert, interactive, no apparent distress. Face is generally flushed without rash, skin is warm and dry. He is not diaphoretic, not clammy. Pupils are equal round, sclera clear, symmetrical facial function, able to speak in complete sentences. Next somewhat thicker but supple, no adenopathy or masses. Lungs are clear, good air entry, wheeze or crackles. CV regular rate and rhythm, no murmur, normal S1-S2, no S3-S4. Abdomen is soft, nontender, nondistended, no organomegaly. Skin visualized without rash. Amputation right lower extremity, is not wearing prosthesis at this time. <Pratima Keys MD - Last Filed: 10/23/24 09:09> Vital Signs, click to edit/add: Vital Signs - 24 hr 10/21/24 23:07 Temperature 98.5 F Pulse Rate [Left P ulse Oximeter] 68 Respiratory Rate 18 Blood Pressure [Ri ght Forearm] 173/103 H Pulse Oximetry 94 Oxygen Delivery Me thod Room Air <Mica Brooks MD - Last Filed: 10/22/24 00:50> Documenting provider has reviewed patient's vital signs: yes <Pratima Keys MD - Last Filed: 10/23/24 09:09> Course Course ED Course: Review of his chemotherapy side effects do include nausea vomiting abdominal pain, dizziness, muscle weakness among others. He does have significant history of infection as well. We will do full complement of labs, check triple viral swab, make sure his cell counts are stable and we did do 1 blood culture. There is still a shortage of blood cultures but patient could conceivably have early infection and has had significant infections before. Thus, 1 blood culture was done despite the shortage. He is not febrile at this time, hemodynamically stable but will watch closely. Given his level of vomiting, have ordered 500 mL normal saline. The Ativan IM has helped control his nausea and vomiting, will continue to monitor and give Zofran if needed. <Pratima Keys MD - Last Filed: 10/23/24 09:09> Reevaluation(s) Time of Reevaluation #1: 23:49 <Pratima Keys MD - Last Filed: 10/23/24 09:09> Reevaluation #1: Patient requesting nicotine patch. 14 mg patch ordered for him. Note patient did specifically request 21 mg nicotine patch from nursing staff, did cancel the 14 mg and ordered 21 mg for him. <Pratima Keys MD - Last Filed: 10/23/24 09:09> Time of Reevaluation #2: 00:47 <Mica Brooks MD - Last Filed: 10/22/24 00:50> Reevaluation #2: Dr. Brooks- I assumed care from evening provider. Patient has continued to do very well after his IM Ativan. He has been sipping fluids here in the ED without further episodes of vomiting. Labs are reviewed, reassuring except a mildly elevated lactate. Patient is still finishing up his IV fluid. I have counseled him on the findings and his thoughts. This is a chemotherapy agent that is known to be very nauseating. He did take his Zofran prior to taking the chemotherapy drug but admits that he took it much earlier in the evening than he typically would. He would typically take a closer to bedtime. This medicine has been recently restarted after a hiatus for treatment of other conditions. It was also restarted at a higher dose. He is of the thought that this drug caused the side effects and I a.m. in agreement. We discussed potential options to help mitigate this as I unfortunately suspect that he will have a similar response with the additional daily dosing x5 days. Patient will premedicate with 8 mg of Zofran and 1 mg of lorazepam 30 minutes prior to taking his chemotherapy which he will do much closer to bedtime. He will continue this for the next 4 nights. He will call his brain team in the morning and go over what happened with them, seeking further advice and letting them know what hour interval plan is to help mitigate another episode. Patient will finish his IV fluids and be discharged home. All questions answered. <Mica Brooks MD - Last Filed: 10/22/24 00:50> Vital Signs Vital signs: Initial Vital Signs Temperature 98.5 F 10/21/24 23:07 Temperature Source Temporal Artery Scan 10/21/24 23:07 Pulse Rate 68 10/21/24 23:07 Pulse Rhythm Regular 10/21/24 23:07 Respiratory Rate 18 10/21/24 23:07 Blood Pressure 173/103 H 10/21/24 23:07 Blood Pressure Mean 126 H 10/21/24 23:07 Blood Pressure Position Supine 10/21/24 23:07 Pulse Oximetry 94 10/21/24 23:07 Oxygen Delivery Method Room Air 10/21/24 23:07 Vital Signs Temperature 98.5 F 10/21/24 23:07 Pulse Rate 68 10/21/24 23:07 Respiratory Rate 18 10/21/24 23:07 Blood Pressure 173/103 H 10/21/24 23:07 Pulse Oximetry 94 10/21/24 23:07 Oxygen Delivery Method Room Air 10/21/24 23:07 Temperature 98.5 F 10/21/24 23:07 Pulse Rate 68 10/21/24 23:07 Respiratory Rate 18 10/21/24 23:07 Blood Pressure 173/103 H 10/21/24 23:07 Pulse Oximetry 94 10/21/24 23:07 Oxygen Delivery Method Room Air 10/21/24 23:07 <Pratima Keys MD - Last Filed: 10/23/24 09:09> Initial Vital Signs Temperature 98.5 F 10/21/24 23:07 Temperature Source Temporal Artery Scan 10/21/24 23:07 Pulse Rate 68 10/21/24 23:07 Pulse Rhythm Regular 10/21/24 23:07 Respiratory Rate 18 10/21/24 23:07 Blood Pressure 173/103 H 10/21/24 23:07 Blood Pressure Mean 126 H 10/21/24 23:07 Blood Pressure Position Supine 10/21/24 23:07 Pulse Oximetry 94 10/21/24 23:07 Oxygen Delivery Method Room Air 10/21/24 23:07 Vital Signs Temperature 98.5 F 10/21/24 23:07 Pulse Rate 68 10/21/24 23:07 Respiratory Rate 18 10/21/24 23:07 Blood Pressure 173/103 H 10/21/24 23:07 Pulse Oximetry 94 10/21/24 23:07 Oxygen Delivery Method Room Air 10/21/24 23:07 Temperature 98.5 F 10/21/24 23:07 Pulse Rate 68 10/21/24 23:07 Respiratory Rate 18 10/21/24 23:07 Blood Pressure 173/103 H 10/21/24 23:07 Pulse Oximetry 94 10/21/24 23:07 Oxygen Delivery Method Room Air 10/21/24 23:07 <Mica Brooks MD - Last Filed: 10/22/24 00:50> Medications Administered Medications: Discontinued Medications Generic Name Dose Route Start Last Admin Trade Name Freq PRN Reason Stop Dose Admin Sodium Chloride 500 mls @ 500 mls/hr 10/21/24 23:11 10/22/24 00:52 0.9 % Sodium Chloride 500 Ml IV 10/22/24 00:10 Infused .Q1H ONE Infusion Sodium Chloride 500 mls @ 500 mls/hr 10/22/24 00:02 10/22/24 00:54 0.9 % Sodium Chloride 500 Ml IV 10/22/24 01:01 Not Given .Q1H ONE Nicotine 1 patch 10/21/24 23:45 10/22/24 00:52 Nicotine 14 Mg Patch TRANSDERMA Not Given Q24H DANILO Nicotine 1 patch 10/21/24 23:45 10/22/24 00:07 Nicotine 21 Mg Patch TRANSDERMA 1 patch Q24H DANILO Administration <Pratima Keys MD - Last Filed: 10/23/24 09:09> Discontinued Medications Generic Name Dose Route Start Last Admin Trade Name Freq PRN Reason Stop Dose Admin Sodium Chloride 500 mls @ 500 mls/hr 10/21/24 23:11 10/22/24 00:52 0.9 % Sodium Chloride 500 Ml IV 10/22/24 00:10 Infused .Q1H ONE Infusion Sodium Chloride 500 mls @ 500 mls/hr 10/22/24 00:02 10/22/24 00:54 0.9 % Sodium Chloride 500 Ml IV 10/22/24 01:01 Not Given .Q1H ONE Nicotine 1 patch 10/21/24 23:45 10/22/24 00:52 Nicotine 14 Mg Patch TRANSDERMA Not Given Q24H DANILO Nicotine 1 patch 10/21/24 23:45 10/22/24 00:07 Nicotine 21 Mg Patch TRANSDERMA 1 patch Q24H DANILO Administration <Mica Brooks MD - Last Filed: 10/22/24 00:50> Medical Decision Making Lab Data Lab results reviewed: Yes I reviewed the patient's lab results <Mica Brooks MD - Last Filed: 10/22/24 00:50> Lab results narrative: No significant leukocytosis. Liver enzymes are mildly elevated but in comparison to previous values, they are actually better than usual. They are not in an obstructive pattern. Influenza swabs are negative. Lactate was mildly elevated, IV fluids have been given. <Mica Brooks MD - Last Filed: 10/22/24 00:50> Labs: Lab Results 10/21/24 10/21/24 Range/Units 23:17 23:30 WBC 7.96 (4.50-11.00) K/uL RBC 4.74 (4.30-5.90) m/uL Hgb 15.0 (13.5-17.5) gm/dL Hct 45.1 (37.0-53.0) % MCV 95 (80-100) fL MCH 32 (26-34) pg MCHC 33 (32-36) gm/dL RDW Coeff of Shimon 12.0 (11.5-15.5) % Plt Count 144 (140-440) K/uL Neut % (Auto) 86.9 H (42.0-72.0) % Lymph % (Auto) 6.3 L (20-44) % [place] % (Auto) 6.3 (0.0-11.0) % Eos % (Auto) 0.1 (0.0-7.0) % Baso % (Auto) 0.1 (0.0-3.0) % Neut # (Auto) 6.90 (1.7-7.0) K/uL Lymph # (Auto) 0.50 L (0.90-2.90) K/uL [place] # (Auto) 0.50 (0.00-0.90) K/UL Eos # (Auto) 0.01 (0.00-0.50) K/uL Baso # (Auto) 0.01 (0.00-0.30) K/uL Abs Immat Gran (auto) 0.02 (0.00-0.30) K/uL Imm/Tot Granulo (auto) 0.3 % Sodium 140 (135-149) mmol/L Potassium 4.0 (3.6-5.1) mmol/L Chloride 104 (96-114) mmol/L Carbon Dioxide 27 (20-32) mmol/L Anion Gap 9 (7-15) mEq/L BUN 22 (7-30) mg/dL Creatinine 0.7 (0.5-1.5) mg/dL Estimated Creat Clear 130.36 Estimated GFR 112 ml/min Glucose 140 H (60-115) mg/dL Lactate 2.1 H (0.5-1.9) mmol/L Calcium 9.9 (8.4-10.6) mg/dL Total Bilirubin 0.7 (0.1-1.5) mg/dL AST 50 H (12-35) U/L ALT 75 H (4-50) U/L Alkaline Phosphatase 56 (40-150) U/L C-Reactive Protein < 0.5 L (0.5-1.0) mg/dL Total Protein 6.6 (6.0-8.3) g/dL Albumin 4.3 (3.3-5.0) g/dL Procalcitonin 0.06 (<0.50) ng/mL SARS-CoV-2 (PCR) Negative SARS-CoV-2 (Negative) Influenza Type A (PCR) Negative PCR FLU A (Negative) Influenza Type B (PCR) Negative PCR FLU B (Negative) RSV (PCR) Negative PCR RSV (Negative) <Pratima Keys MD - Last Filed: 10/23/24 09:09> Lab Results 10/21/24 10/21/24 Range/Units 23:17 23:30 WBC 7.96 (4.50-11.00) K/uL RBC 4.74 (4.30-5.90) m/uL Hgb 15.0 (13.5-17.5) gm/dL Hct 45.1 (37.0-53.0) % MCV 95 (80-100) fL MCH 32 (26-34) pg MCHC 33 (32-36) gm/dL RDW Coeff of Shimon 12.0 (11.5-15.5) % Plt Count 144 (140-440) K/uL Neut % (Auto) 86.9 H (42.0-72.0) % Lymph % (Auto) 6.3 L (20-44) % [place] % (Auto) 6.3 (0.0-11.0) % Eos % (Auto) 0.1 (0.0-7.0) % Baso % (Auto) 0.1 (0.0-3.0) % Neut # (Auto) 6.90 (1.7-7.0) K/uL Lymph # (Auto) 0.50 L (0.90-2.90) K/uL [place] # (Auto) 0.50 (0.00-0.90) K/UL Eos # (Auto) 0.01 (0.00-0.50) K/uL Baso # (Auto) 0.01 (0.00-0.30) K/uL Abs Immat Gran (auto) 0.02 (0.00-0.30) K/uL Imm/Tot Granulo (auto) 0.3 % Sodium 140 (135-149) mmol/L Potassium 4.0 (3.6-5.1) mmol/L Chloride 104 (96-114) mmol/L Carbon Dioxide 27 (20-32) mmol/L Anion Gap 9 (7-15) mEq/L BUN 22 (7-30) mg/dL Creatinine 0.7 (0.5-1.5) mg/dL Estimated Creat Clear 130.36 Estimated GFR 112 ml/min Glucose 140 H (60-115) mg/dL Lactate 2.1 H (0.5-1.9) mmol/L Calcium 9.9 (8.4-10.6) mg/dL Total Bilirubin 0.7 (0.1-1.5) mg/dL AST 50 H (12-35) U/L ALT 75 H (4-50) U/L Alkaline Phosphatase 56 (40-150) U/L C-Reactive Protein < 0.5 L (0.5-1.0) mg/dL Total Protein 6.6 (6.0-8.3) g/dL Albumin 4.3 (3.3-5.0) g/dL Procalcitonin 0.06 (<0.50) ng/mL SARS-CoV-2 (PCR) Negative SARS-CoV-2 (Negative) Influenza Type A (PCR) Negative PCR FLU A (Negative) Influenza Type B (PCR) Negative PCR FLU B (Negative) RSV (PCR) Negative PCR RSV (Negative) <Mica Brooks MD - Last Filed: 10/22/24 00:50> Imaging Data Chest x-ray: Attestation: I have reviewed the pertinent imaging results. <Pratima Hernandez MD - Last Filed: 10/23/24 09:09> My impression: No acute pathology on my preliminary review. <Pratima Hernandez MD - Last Filed: 10/23/24 09:09> Radiologist's impression: Patient: JOSE ROMERO Facility:?[facility] Patient ID:?[id number] Site Patient ID:?[id number]. Site :?[id number] Study:?XRay-Chest PCXR-10/21/2024 11:27:17 PM Ordering Physician:Sohan Andujar Final Report: INDICATION: Chills. TECHNIQUE: Chest 1 view. COMPARISON: 08/26/2024. FINDINGS: Cardiovascular and mediastinum: Stable cardiomediastinal silhouette. Lungs and pleural spaces: No consolidation. No pleural effusions or pneumothorax. Bones and soft tissues: Degenerative changes of the spine and shoulders. IMPRESSION: No consolidation. Dictated by Ronny Ingram MD @ 10/21/2024 11:51:57 PM (Electronic Signature) <Pratima Keys MD - Last Filed: 10/23/24 09:09> Discharge Plan Discharge Clinical Impression: Medication side effects <Pratima Keys MD - Last Filed: 10/23/24 09:09> Patient Disposition: Home w/ Parent or Adult <Pratima Keys MD - Last Filed: 10/23/24 09:09> Condition: Improved <Pratima Keys MD - Last Filed: 10/23/24 09:09> Instructions: Adverse Drug Reaction (ED) <Pratima Keys MD - Last Filed: 10/23/24 09:09> Additional Instructions: As we discussed, I share your suspicion that the vomiting episode was brought on by your chemotherapy medication. I am glad that the Ativan (also known as lorazepam) was so helpful for you. Your labs here look very good. There does not seem to be any other obvious source for the vomiting today. Unfortunately, this is a common side effect of these medications. Unfortunately, this side effect does not tend to improve with subsequent doses. I do fear that you will have a similar reaction again tonight when you attempt to take your medication. Because of this, I would recommend that we be more aggressive with anti nausea medications. I would like for you to take both the 8 mg of Zofran also known as ondansetron in combination with 1 mg of Ativan. I will send a prescription for this. Try to take both medications about a 1/2 hour prior to taking the chemotherapy. Try to move this closer to bedtime also. Symptoms often worsen 4-6 hours after taking the chemotherapy drug. I am hopin g that you will sleep through this window. Remember that you can repeat the Ativan and Zofran 6 hours later if needed. There are other anti nausea medications that we could try also but they tend to have more side effects than this combination. Please call your brain center team in the daylight hours this morning. Let them know what happened and what we are planning. Any advice that they give would over ride my recommendations. If you have any persistent bloody vomit, severe weakness, or other alarming symptoms, please come back to the emergency department. <Pratima Keys MD - Last Filed: 10/23/24 09:09> Activity Level: Activity as Tolerated <Pratima Keys MD - Last Filed: 10/23/24 09:09> Activity as Tolerated <Mica Brooks MD - Last Filed: 10/22/24 00:50> Discharge Diet: Regular <Pratima Keys MD - Last Filed: 10/23/24 09:09> Regular <Mica Brooks MD - Last Filed: 10/22/24 00:50> Prescriptions: New lorazepam 1 mg tablet 0.5 - 1 mg PO TID PRN (Reason: nausea and vomiting) Qty: 20 0RF Rx Instructions: Take 30 minutes prior to chemotherapy in combination with Zofran to help reduce vomiting. May repeat after 6 hours if needed. No Action Nurtec ODT 75 mg tablet,disintegrating 75 mg PO DAILY PRN (Reason: headache) ibuprofen [Advil] 200 mg tablet 400 mg PO .4-6X/DAY PRN losartan 100 mg tablet 100 mg PO QDAY Qty: 90 3RF aluminum chloride 20 % solution 1 applic topical QHS levetiracetam 500 mg tablet 500 mg PO BID loratadine-pseudoephedrine [Claritin-D 24 Hour] 10-240 mg tablet extended release 24 hr 1 tab PO DAILY PRN sildenafil (pulm.hypertension) 20 mg tablet 20 mg PO DAILY Rx Instructions: TAKES 1 TAB DAILY TO HELP URINATE AND OCCASIONALLY MORE THROUGHOUT THE DAY temozolomide 100 mg capsule 200 mg PO . DIREC Rx Instructions: must be taken on empty - 340 MG TOTAL - DAILY FOR 5 DAYS, THEN 23 DAYS OFF AND REPEAT temozolomide 140 mg capsule 140 mg PO DIRECTED Rx Instructions: must be taken on empty stomach - 340 MG TOTAL - 5 DAYS ON, 23 DAYS OFF AND REPEAT clotrimazole-betamethasone 1-0.05 % cream 1 applic topical BID PRN gabapentin 300 mg capsule 900 - 1,200 mg PO TID Qty: 900 1RF Rx Instructions: 900mg (3 capsules) morning and midday. 1200mg (4 capsules) HS fluoxetine 40 mg capsule 40 mg PO QDAY Qty: 90 1RF naltrexone 50 mg tablet 50 mg PO QDAY Qty: 90 3RF <Pratima Keys MD - Last Filed: 10/23/24 09:09> Follow Up/Referrals: Rodrigo Hughes MD [Primary Care Provider] - <Pratima Keys MD - Last Filed: 10/23/24 09:09> Stand Alone Forms: [employer] Info Instructions <Pratima Keys MD - Last Filed: 10/23/24 09:09>
--- NOTE | 2024-10-21 23:06 | CRLHL7_ITS ---
For Patients: As a result of the Cures Act, medical imaging exams and procedure reports are released immediately into your electronic medical record. You may view this report before your referring provider. If you have questions, please contact your health care provider. INDICATION: Chills. TECHNIQUE: Chest 1 view. COMPARISON: 08/26/2024. FINDINGS: Cardiovascular and mediastinum: Stable cardiomediastinal silhouette. Lungs and pleural spaces: No consolidation. No pleural effusions or pneumothorax. Bones and soft tissues: Degenerative changes of the spine and shoulders. IMPRESSION: No consolidation. Dictated by Ronny Ingram MD @ 10/21/2024 11:51:57 PM (Electronically Signed)
[2024-10-21 23:07] VITALS: BP 173/103; PULSE 68; RESP 18; TEMP 36.9; O2SAT 94; BMI 33.7
[2024-10-21 23:24] LABS: Lactate* 2.1 mmol/L (0.5-1.9)
[2024-10-21] MEDS: 0.9 % SODIUM CHLORIDE 500 ML 500 ML IV (23:40)
[2024-10-21 23:45] LABS: Basophils Absolute Auto 0.01 K/uL (0.00-0.30); Basophils Percent Auto 0.1 % (0.0-3.0); Eosinophils Absolute Auto 0.01 K/uL (0.00-0.50); Eosinophils Percent Auto 0.1 % (0.0-7.0); Hematocrit 45.1 % (37.0-53.0); Immature Granulocytes Abs Auto 0.02 K/uL (0.00-0.30); Immature Granulocytes Pct Auto 0.3 %; Lymphocytes Percent Auto 6.3 % (20-44); Mean Corpuscular HGB Conc 33 gm/dL (32-36); Mean Corpuscular Hemoglobin 32 pg (26-34); Mean Corpuscular Volume 95 fL (80-100); Monocytes Percent Auto 6.3 % (0.0-11.0); Neutrophils Percent Auto 86.9 % (42.0-72.0); Platelet Count* 144 K/uL (140-440); Red Blood Count 4.74 m/uL (4.30-5.90); White Blood Count* 7.96 K/uL (4.50-11.00)
[2024-10-21 23:46] LABS: Slide Review Reflex No
--- OUTSIDE RECORDS SUMMARY | 2024-10-21 23:47 | XMS_ITS | Data Portability ---
Author Organization [place] [facility] _[place] Address [address] [place] [address] Assessment No assessment recorded. Plan of Treatment Reminders Order Date Submit Date Provider Last Modified By Organization Details Last Modified Time Details Appointments None recorded. Lab None recorded. Referral None recorded. Procedures bladder scan (PROC) 2023 024 [email or web address] 9 [facility], [address], [address], [place], [address], 14:14:58 Surgeries None recorded. Imaging None recorded. Medication Orders solifenacin 10 mg tablet 2023 024 [place] [id number], [address] [facility] [address] [facility] [facility] [place], [place], [id number], 14:26:01 Patient TargetsNo targets recorded. Patient Instructions Encounter Date Encounter Id Patient Instructions Last Modified By Organization Details Last Modified Time 07/30/2024 [id number] will try solifenacin and rtc 6 weeks. [email or web address] Not available 07/30/2024 14:26:59 Reason for Referral None Reported. Results Created Date Observation Date Name Description Value Unit Range Abnormal Flag Note LastModifiedBy Organization Detail LastModifiedTime 07/30/20 24 07/30/2024 bladd er scan (PROC ) Volume (in mL) 16 ml Not Available [facility] [address], [place], [address], 07/22/2024 14:00:28 Result Notes None recorded. Problems Name Problem SNOMED Code Status Onset Date Resolution Date Notes Provider Name and Address Organization Details Recorded Time Urgent desire to urinate 71526068 Active 2023 Derrick Hodge MD [address] [place] [address],[address], [place], [address], [facility] 4 14:25:07 Incontinence 30248000 Active 2023 Derrick Hodge MD [address] [place] [address],[address], [place], [address], [facility] 4 14:25:08 Problem Notes None recorded. Procedures Surgical History Date Name Laterality Status Provider Name and Address Organization Details Recorded Time 4 Bladder Scan cancelled Karie [facility] 08/22/2024 16:38:30 Bladder Scan completed Derrick Hodge MD [address] [place] [address],[address] [place] [address], [phone], [facility] 07/30/2024 14:14:27 destruction of brain tumor completed Derrick Hodge MD [address] [place] [address],[address], [place], [address], [facility] 07/30/2024 14:11:23 Imaging Results None recorded. [...] Not Available Not Available No t Available topiramate 25 mg tablet active Not Available Not Available Not Available sulfamethox azole 800 mg-trimetho prim 160 mg tablet TAKE 1 TABLET BY MOUTH TWICE DAILY FOR 7 DAYS active Not Available Not Available No t Available amoxicillin 875 mg tablet TAKE 1 TABLET BY MOUTH [...] No t Available doxycycline hyclate 100 mg tablet TAKE 1 TABLET BY MOUTH TWICE DAILY active Not Available Not Available No t Available amoxicillin 875 mg-potshaniceu m clavulanate 125 mg tablet TAKE 1 TABLET BY MOUTH TWICE DAILY FOR 7 DAYS 07/30 completed Not Available Not Available Not Available oxycodone 5 mg tablet TAKE 1 TABLET BY MOUTH EVERY 6 HOURS NEEDED FOR PAIN active Not Available [...] active Not Available Not Available Not Available [facility] ODT 75 mg disintegrat ing tablet DISSOLVE 1 TABLET ON THE TONGUE ONCE DAILY NEEDED FOR HEADACHE active Not Available Not Available No t Available Vitals Date Recorded Body height Body mass index (BMI) Body weight Provider Name and Address Organization Details Last Updated DateTime 07/30/2024 180.34 cm 32.8 kg/m2 532940.21 g Derrick Hodge MD [address] [place] [address],[address], [address] 07/30/2024 14:07:09 Social History Question Answer Notes LastModified by Organizat ion Details LastModified Time Tobacco Smoking Status Never Smoker Derrick Hodge MD [address] [place] [address],[address], [address], [facility] 07/30/2024 14:10:43 What Is Your Level Of Alcohol Consumption? Occasional [email or web address] Information not available 07/30/2024 What Is Your Level Of Caffeine Consumption? Occasional [email or web address] Information not available 07/30/2024 What Was The Date Of Your Most Recent Tobacco Screening? 07/30/2024 [email or web address] Information not available 07/30/2024 Have You Ever Been Counseled For Unhealthy Alcohol Use? No [email or web address] Information not available 07/30/2024 Do You Use Any Illicit Or Recreational Drugs? No [email or web address] Information not available 07/30/2024 Sex: Unknown Functional Status None recorded. Mental Status None recorded. Family History Relationship Description Onset Age of this Age Resolved Age Notes LastModified by Organization Details LastModified Time Father Hernia repair Not available 07/30 14:10:16 Medical History Condition Response Sexually Transmitted Infection N Diabetes N Other N Bleeding Disorder N High Blood Pressure Y Kidney Stones N Cancer Y Lung Disease N Depression Y High Cholesterol N GERD/Acid Reflux N Heart Disease N Past Encounters Encounter ID Performer Location Encounter Start Date Encounter Closed Date Diagnosis/Indication Diagnosis SNOMED-CT Code Diagnosis ICD10 Code [id number] [facility] Hodge [facility] [address] [place] [address] 07/30/2024 14:01:11 07/31/2024 10:57:56 Incontinence 15447605 R32 Urgent barbra maeve to urinate 24930793 R39.15 Health Concerns Section Related Observation LastModified [...] Address Organization Details Recorded Time 07/30/2024 text/html seeing for voiding issues 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 was circed at . gained about 30# after the surgery due to steroids. unable to void for UA, bladder scan shows 16ml today. Derrick Hodge MD [address], [place], [address], [facility] 07/30/2024 14:27:20
--- OUTSIDE RECORDS SUMMARY | 2024-10-21 23:48 | XMS_ITS ---
Author Organization [facility] Address [address] [place] [address] Care Team Providers Care Aquatics Manager Name Role Phone Unavailable Unavailable Unavailable Surgery Details Not on file Complications Check Surgery Details section. Procedure Estimated Blood Loss Check Surgery Details section. Procedure Findings Check Surgery Details section. Procedure Specimens Taken Check Surgery Details section.
--- OUTSIDE RECORDS SUMMARY | 2024-10-21 23:48 | XMS_ITS | Continuity of Care Document ---
[facility] Organization [facility] Address [address] [place] [address] Assessment No assessment recorded. Plan of Treatment Reminders Order Date Submit Date Provider Last Modified By Organization Details Last Modified Time Details Appointments None recorded. Lab None recorded. Referral None recorded. Procedures bladder scan (PROC) 2023 024 [email or web address] 9 [facility], [facility], [address], [place], [address], 14:14:58 Surgeries None recorded. Imaging None recorded. Medication Orders solifenacin 10 mg tablet 2023 024 [id number], [address] [place], [place], [phone], 14:26:01 Patient TargetsNo targets recorded. Patient Instructions Encounter Date Encounter Id Patient Instructions Last Modified By Organization Details Last Modified Time 07/30/2024 [id number] will try solifenacin and rtc 6 weeks. [email or web address] Not available 07/30/2024 14:26:59 Reason for Referral None Reported. Results Created Date Observation Date Name Description Value Unit Range Abnormal Flag Note LastModifiedBy Organization Detail LastModifiedTime 07/30/20 24 07/30/2024 bladd er scan (PROC ) Volume (in mL) 16 ml Not Available [facility] [address], [place], [address], 07/22/2024 14:00:28 Result Notes None recorded. Problems Name Problem SNOMED Code Status Onset Date Resolution Date Notes Provider Name and Address Organization Details Recorded Time Urgent desire to urinate 51260458 Active 2023 Derrick Hodge MD [address] [place] [address],[address] [place] [address], [phone], [facility] 4 14:25:07 Incontinence 84846999 Active 2023 Derrick Hodge MD [address] [place] [address],[address], [place], [address], [facility] 4 14:25:08 Problem Notes None recorded. Procedures Surgical History Date Name Laterality Status Provider Name and Address Organization Details Recorded Time 4 Bladder Scan cancelled Karie [facility]ns[facility]io [facility] 08/22/2024 16:38:30 Bladder Scan completed Derrick Hodge MD [address] [place] [address],[address], [address], [facility] 07/30/2024 14:14:27 destruction of brain tumor completed Derrick Hodge MD [address] [place] [address],[address] [place] [address], [phone], [facility] 07/30/2024 14:11:23 Imaging Results None recorded. Procedure [...] Available No t Available amoxicillin 875 mg-rahul m clavulanate 125 mg tablet TAKE 1 [...] active Not Available Not Available Not Available [facility] ODT 75 mg disintegrat ing tablet DISSOLVE 1 TABLET ON THE TONGUE ONCE DAILY NEEDED FOR HEADACHE active Not Available Not Available No t Available Vitals Date Recorded Body height Body mass index (BMI) Body weight Provider Name and Address Organization Details Last Updated DateTime 07/30/2024 180.34 cm 32.8 kg/m2 688425.21 g Derrick Hodge MD [address] [place] [address], [phone] 07/30/2024 14:07:09 Social History Question Answer Notes LastModified by Organizat ion Details LastModified Time Tobacco Smoking Status Never Smoker Derrick Hodge MD [address] [place] [address], [address], [facility] 07/30/2024 14:10:43 What Is Your Level Of Alcohol Consumption? Occasional [email or web address] Information not available 07/30/2024 What Is Your Level Of Caffeine Consumption? Occasional [email or web address] Information not available 07/30/2024 What Was The Date Of Your Most Recent Tobacco Screening? 07/30/2024 [email or web address] Information not available 07/30/2024 Have You Ever Been Counseled For Unhealthy Alcohol Use? No Information not available 07/30/2024 Do You Use Any Illicit Or Recreational Drugs? No Information not available 07/30/2024 Sex: Unknown Functional Status None recorded. Mental Status None recorded. Family History Relationship Description Onset Age of this Age Resolved Age Notes LastModified by Organization Details LastModified Time Father Hernia repair [email or web address] Not available 07/30 14:10:16 Medical History Condition Response Diabetes N Sexually Transmitted Infection N Other N Bleeding Disorder N High Blood Pressure Y Kidney Stones N Cancer Y Lung Disease N Depression Y High Cholesterol N GERD/Acid Reflux N Heart Disease N Past Encounters Encounter ID Performer Location Encounter Start Date Encounter Closed Date Diagnosis/Indication Diagnosis SNOMED-CT Code Diagnosis ICD10 Code [id number] [facility] [address] [place] [address] 07/30/2024 14:01:11 07/31/2024 10:57:56 Incontinence 70149321 R32 Urgent barbra maeve to urinate 69829508 R39.15 Health Concerns Section Related Observation LastModified [...] shows 16ml today. Derrick Hodge MD [address], [place], [address], [facility] 07/30/2024 14:27:20
--- OUTSIDE RECORDS SUMMARY | 2024-10-21 23:48 | XMS_ITS | Clinical Summary ---
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 1 unit 8 Active CPAPIndications:CINDY on CPAP CPAP machine for home use at pressure: 13cn/H2O , Heated humidifier x 1, Humidifier chamber x 1, 1 unit 11 9 Active CPAPIndications:CINDY on CPAP CPAP machine for home use [...] 1,200 mg by mouth at bedtime. Active loratadine-pseudoep hedrine (Claritin-D 24 Hour) 10-240 mg 24hr tablet Take 1 Tablet by mouth once daily. Active aluminum chloride (DRYSOL) 20 % external solutionIndications :Hyperhidrosis,AKA stump complication (HC),S/P AKA (above knee amputation) unilateral, right (HC) Apply topically to affected area(s) at bedtime. 35 mL 1 4 Active sodium chloride 1,000 mg soluble tabletIndications:H yponatremia Take 1 Tablet (1,000 mg) by mouth or nasogastric tube two times daily. 30 Tablet 4 Active melatonin 3 mg tabletIndications:I nsomnia, unspecified type Take 2 Tablets (6 mg) by mouth at bedtime. 30 Tablet 4 Active ondansetron (ZOFRAN) 8 mg tabletIndications:C hemotherapy induced nausea and vomiting Take one tablet by mouth 30 minutes prior to chemotherapy and every 8 hours as needed for breakthrough nausea. 30 Tablet 5 4 Active glycopyrronium tosylate (Qbrexza) 2.4 % towlIndications:Hyp erhidrosis Apply topically to affected area(s) once daily. 30 Each 1 4 Active ibuprofen (AdviL) 200 mg tablet Take 200 mg by mouth every 6 hours. Active LORazepam (ATIVAN) 1 mg tablet Take 1 mg by mouth every 6 hours if needed. Active naltrexone (REVIA) 50 mg tabletIndications:A lcohol use disorder Take 1 Tablet (50 mg) by mouth once daily. 90 Tablet 1 4 Active levETIRAcetam (Keppra) 500 mg tabletIndications:G lioblastoma (HC) Take 1 Tablet (500 mg) by mouth two times daily. 180 Tablet 3 4 Active diazePAM (VALIUM) 10 mg tabletIndications:G lioblastoma (HC) Take 1 tablet (10 mg) at least 30 minutes prior to MRI scan on July 26 2024. 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 8 Tablet 2 4 Active hospital bedIndications:Glio blastoma (HC) As directed. Eleuterio Tafoya : 1975. Hospital Bed order for hx of glioblastoma and impaired mobility. 1 Each 4 Active amoxicillin 875 mg tablet Take 1 Tablet by mouth two times daily. Active doxycycline 100 mg tablet Take 1 Tablet by mouth two times daily. Active DULoxetine (CYMBALTA) 30 mg Delayed-release capsuleIndications: Adjustment disorder, unspecified type,Depression, unspecified depression type Take 1 Capsule (30 mg) by mouth once daily. 30 Capsule 2 4 Active LORazepam (ATIVAN) 0.5 mg tabIndications:Janna strophobia,Glioblas sagar (HC) Take 4 tablets (2 mg total) 60 minutes prior to MRI Brain scan. If not effective, take 1 tablet (0.5 mg total) 60 minutes after first dose. 5 Tablet 4 Active temozolomide (TEMODAR) 100 mg capsuleIndications: Glioblastoma (HC) Take 1 Capsule (100 mg) by mouth once daily with 1 other temozolomide prescription for 460 mg total for 5 doses. Take on Days 1-5 of each 28 day cycle. 5 Capsule 4 09/23/20 24 Discontinue d(*Medicati on adjustment) temozolomide 180 mg capsuleIndications: Glioblastoma (HC) Take 2 Capsules (360 mg) by mouth once daily with 1 other temozolomide prescription for 460 mg total for 5 doses. Take on Days 1-5 of each 28 day cycle. 10 Capsule 4 09/23/20 24 Discontinue d(*Medicati on adjustment) temozolomide (TEMODAR) 100 mg capsuleIndications: Glioblastoma (HC) Take 1 Capsule (100 mg) by mouth once daily with 1 other temozolomide prescription for 350 mg total for 5 doses. Take on Days 1-5 of each 28 day cycle. 5 Capsule 4 10/05/20 24 temozolomide (TEMODAR) 250 mg capsuleIndications: Glioblastoma (HC) Take 1 Capsule (250 mg) by mouth once daily with 1 other temozolomide prescription for 350 mg total for 5 doses. Take on Days 1-5 of each 28 day cycle. 5 Capsule 4 10/05/20 24 Active Problems Problem Noted Date Diagnosed Date Claustrophobia 09/23/2024 Acute intractable headache 09/23/2024 Vasogenic cerebral edema 05/01/2024 Hyponatremia 05/01/2024 Encounter for therapeutic drug monitoring 2023 Gram-neg septicemia 04/25/2024 Bacterial infection due [...] Encounters Date Type Department Care Team Description 10/21/2024 [facility] [address] [place] [address] Rodrigo Hughes MD Vomiting 10/09/2024 Telephone [facility] [address] [place] [phone] Sonya Gonsales, [facility] Social Work Visit 10/08/2024 12:45 PM [employer] Office Visit [facility] [address] [place] [address] Madina Burgos, NUCLEAR MEDICINE SPECIALIST Follow Up 10/08/2024 Travel 10/07/2024 Telephone [facility] [address] [place] [address] Madina Burgos, NUCLEAR MEDICINE SPECIALIST Appointment 10/02/2024 Telephone [facility] [address] [place] [address] Madina Burgos, NUCLEAR MEDICINE SPECIALIST Appointment 09/30/2024 [facility] [address] [place] [address] Pretty Thorne MD 09/25/2024 2:45 PM CDT Office Visit [facility] [address] [place] [address] Nancy Medley MD 09/25/2024 Telephone [facility] [address] [place] [phone] Shannon Ryder DO Oncology Nurse Navigation 09/25/2024 Travel 09/23/2024 11:00 AM CDT Home Visit [facility] [phone] Deonna Iverson Care Guide (Visit) 09/23/2024 9:45 AM CDT Office Visit [facility] [address] [place] [phone] Shannon Ryder DO Follow Up (/) 09/23/2024 6:57 AM CDT - 09/23/2024 11:59 PM CDT Hospital Encounter [facility] [address] [place] [address] Jacobo Flores, CHUCK Encounter for therapeutic drug monitoring 09/23/2024 6:43 AM CDT - 09/23/2024 6:56 AM CDT Hospital Encounter [facility] [address] [place] [address] Shannon Ryder DO Glioblastoma (HC) 09/23/2024 Travel 09/18/2024 Orders Only [facility] [address] [place] [phone] Madina Burgos, NUCLEAR MEDICINE SPECIALIST <No scans attached> 09/17/2024 Patient Outreach [facility] [address] [place] [address] Annie Cabrera, RN, BSN Cancer Rehab Care Coordination - [facility] 09/16/2024 Refill [facility] [address] [place] [phone] Shannon Ryder DO Refill Request (Lorazepam for MRI) 09/16/2024 Orders Only [facility] [address] [place] [phone] Jacobo Flores, CHUCK Error-please disregard 09/16/2024 Telephone [facility] [address] [place], [place] [phone] Madina Burgos, NUCLEAR MEDICINE SPECIALIST Appointment 09/13/2024 8:45 AM CDT Office Visit [facility] [address] [place] [address] Madina Burgos, NUCLEAR MEDICINE SPECIALIST Consult 09/13/2024 Travel 09/11/2024 Telephone [facility] [address] [place] [phone] Shannon Ryder DO Oncology Nurse Navigation 09/10/2024 Telephone [facility] [address] [place] [phone] Lydia Curtis, [facility] Social Work Contact 09/06/2024 Telephone [facility] [address] [place] [address] Madina Burgos, NUCLEAR MEDICINE SPECIALIST Appointment 09/02/2024 Telephone [facility] [address] [place] [phone] Maggy Gerardo MD Prior Authorization (rimegepant (Nurtec ODT) 75 mg orally disintegrating tablet APPROVED 09/02/2024-09/02/2025 ) 09/02/2024 Telephone [facility] [address] [phone] Maggy Gerardo MD Prior Authorization (Nurtec 75mg ODT tablets) 09/02/2024 Telephone [facility] [address] [phone] Shannon Ryder DO Follow Up 08/29/2024 Telephone [facility] [address] [place] [address] Shannon Ryder DO Palliative Care 08/27/2024 Telephone [facility] [address] [facility] [address] [place] [phone] Maggy Gerardo MD Refill Request (Patient called requesting to speak to Dr. Gerardo about getting an oxycodone prescription. ) 08/26/[address] [address] Rodrigo Hughes MD Medication Management; Error-please disregard 08/23/2024 Telephone [facility] [address] [place] [address] Sonu Brown MD Follow Up 08/23/2024 Orders Only [facility] [address] [place] [address] Jacobo Flores NP <No scans attached> 08/20/2024 Telephone [facility] [address] [place] [address] Shannon Ryder DO Oncology Nurse Navigation 08/14/2024 Telephone [facility] [phone] Deonna Iverson Care Guide 08/14/2024 Telephone [facility] [address] [place] [address] Shannon Ryder DO Oncology Nurse Navigation 08/09/2024 10:00 AM CDT Office Visit [facility] [address] [place] [address] Maggy Gerardo MD Headache 08/09/2024 Travel 08/08/2024 Telephone [facility] [address] [place] [address] Shannon Ryder DO Oncology Nurse Navigation 08/02/2024 Orders Only [facility] [address] [place] [phone] Shannon Ryder DO <No scans attached> 08/02/2024 Refill [facility] [address] [place] [phone] Shannon Ryder DO Refill Request 08/01/2024 Telephone [facility] [address] [place] [phone] Shannon Ryder DO Oncology Nurse Navigation ([facility] ) 07/30/2024 Telephone [facility] [address] [place] [address] Shannon Ryder DO Oncology Nurse Navigation 07/26/2024 10:45 AM CDT Office Visit [facility] [address] [place] [address] Shannon Ryder DO Follow Up 07/26/2024 7:57 AM CDT - 07/26/2024 11:59 PM CDT Hospital Encounter [facility] [address] [place] [address] Shannon Ryder DO Glioblastoma (HC); Acute intractable headache, unspecified headache type; Cellulitis of right leg 07/26/2024 Telephone [facility] [address] [place] [address] Pretty Thorne MD 07/26/2024 Travel 07/22/2024 Telephone [facility] [address] [place] [phone] Shannon Ryder DO Oncology Nurse Navigation 07/22/2024 Telephone [facility] [phone] Deonna Iverson from Last 3 Months Immunizations Name Administration [...] Packs/Day Years Used Date Smoking Tobacco: Never Assessed Smokeless Tobacco: Former Chew Quit: 12/28/2013 Tobacco Cessation:Counseling Given: Not Answered Alcohol Use Standard Drinks/Week Comments Yes 21 [...] Sign Reading Time Taken Comments Blood Pressure 142/93 10/08/2024 12:23 PM [employer] Pulse 78 10/08/2024 12:23 PM [employer] Temperature 36.8 C (98.3 F) 10/08/2024 12:23 PM [employer] Respiratory Rate 17 10/08/2024 12:2 3 PM [employer] Oxygen Saturation 93% 10/08/2024 12: 23 PM [employer] Inhaled Oxygen Concentration - - Weight 106.8 kg (235 lb 6.4 oz) 024 12:23 PM [employer] Height 180.3 cm (5' 11) 04/17/2024 3:11 AM CDT Body Mass Index 32.83 04/17/2024 3:11 AM CDT Plan of Treatment Upcoming Encounters Date Type Department Care Team (Late st Contact Info) Description 10/31/2024 1:00 PM [employer] Appointment [facility] [address] [place] [address] Alexis Christiansen, PT [address] [place] [address] 11/11/2024 11:00 AM [employer] Office Visit [facility] [address] [facility] [address] [place] [address] Nancy Medley MD [address] [facility] [address] [place] [address] Nadir Smith, PsyD, LP [address] [place] [address] Jade Vincent, LN [address] [place] [address] Shannon Ryder DO [address] [facility] [address] [place] [address] 11/18/2024 1:00 PM [employer] Appointment [facility] [address] [place] [address] 11/18/2024 2:45 PM [employer] Office Visit [facility] [address] [place] [address] NitzaShannon buckley [address] [place] [address] 12/18/2024 12:45 PM [employer] Office Visit [facility] [address] [place] [address] Madina Burgos, NUCLEAR MEDICINE SPECIALIST [address] [place], [place] [phone] Health Maintenance Due Date Last Done Comments [...] Completed 05/21/2012 Medical Devices Implanted Type Area Nuclear Fuel Processing Technician Device Identifier Shelf Expiration Date Model / Serial / Lot Dura Neuro 3x3in Duragen Plusnon-Sut - [id number] Implanted:Qty: 1 on 04/19/2024 by Gerardo Her MD at [facility] Right: Cranium Integra Syndevrx Shiloh 01/24/2027 DP-1033 / / [id number] Screw Neuro 4mm Matrixneuro Slf Drill Titnm - [id number] Implanted:Qty: 12 on 04/19/2024 by Gerardo Her MD at [facility] Right: Cranium J And J Depuy CMF [id number] 4.01 / / [place] Cover Neuro 17mm Synthes Low Pro Titnm - [id number] Implanted:Qty: 3 on 04/19/2024 by Gerardo Her MD at [facility] Right: Cranium J And J Depuy CMF [id number] / / Procedures Procedure Name Priority Date/Time Associated Diagnosis Comments SCAN CORRESP-LABORATORY RESULTS 10/08/2024 1:35 PM [employer] SCAN CORRESP-LABORATORY RESULTS 10/02/2024 8:38 AM [employer] SCAN CORRESP-LABORATORY RESULTS 10/02/2024 8:38 AM [employer] SCAN CORRESP-LABORATORY RESULTS 09/24/2024 12:18 PM CDT MR HEAD W WO CONT W PERFUSION Routine 09/23/2024 8:32 AM CDT Glioblastoma (HC) CBC WITH AUTO DIFFERENTIAL Timed 09/23/2024 7:03 AM CDT Encounter for therapeutic drug monitoring COMP METABOLIC PANEL Today 09/23/2024 7:03 AM CDT Encounter for therapeutic drug monitoring CBC WITH AUTO DIFFERENTIAL Today 09/23/2024 7:03 AM CDT Encounter for therapeutic drug monitoring SCAN CORRESP-LABORATORY RESULTS 09/10/2024 3:24 PM CDT SCAN CORRESP-LABORATORY RESULTS 09/03/2024 10:37 AM CDT SCAN CORRESP-LABORATORY RESULTS 08/27/2024 4:37 PM CDT SCAN CORRESP-LABORATORY RESULTS 08/22/2024 3:17 PM CDT [...] SCAN CORRESP-LABORATORY RESULTS 07/23/2024 12:29 PM CDT LIPID PANEL W REFLEX MEASURED LDL Routine 02/11/2014 8:12 AM CDT Hypertriglyceridemi a from Last 3 Months or Most Recently Relevant to Health Maintenance Results * SCAN CORRESP-LABORATORY RESULTS (10/08/2024 1:35 PM [employer]) Only the most recent of12 resultswithin the time period is included. Narrative 10/08/2024 1:35 PM [employer] Ordered by an unspecified provider. Other Clinical Staff OTHER * MR HEAD W WO CONT W PERFUSION (09/23/2024 8:32 AM CDT) Only the most recent of2 resultswithin the time period is included. Anatomical Region Laterality Modality BRAIN Magnetic Resonan ce 09/23/2024 9:11 AM CDT Impressions 09/23/2024 9:11 AM CDT 1. No findings to suggest tumor progression. 2. Enhancement along the right temporal resection cavity margin and extending into the right temporalis muscle, not significantly changed compared to 07/26/2024. Dictated by Naveen Salazar MD @ 09/23/2024 9:11:25 AM (Electronically Signed) Narrative 09/23/2024 9:11 AM CDT For Patients: As a result of the Century Cures Act, medical imaging exams and procedure reports are released immediately into your electronic medical record. You may view this report before your referring provider. If you have questions, please contact your health care provider. INDICATION: Glioblastoma. TECHNIQUE: Multiplanar multisequence MR imaging of the brain prior to and following intravenous contrast. COMPARISON: MRI brain 07/26/2024. FINDINGS: Postsurgical changes of right frontotemporoparietal craniotomy with resection cavity in the lateral right temporal lobe demonstrating interval maturation. Shallow fluid collection subjacent to the craniotomy flap has decreased in size. Intrinsic T1 shortening within the resection cavity, compatible with blood products. Enhancement along the resection cavity margin measuring up to 8 mm posteriorly (series 21 image 70), not significantly changed. No enlarging pathologic intracranial enhancement. No concerning areas of hyperperfusion. Stable enhancement extending through the craniotomy flap into the overlying temporalis muscle measuring 1.4 cm (series 21 image 63). Stable small to moderate FLAIR hyperintensity within the anterior right temporal lobe. Mild diffuse cerebral volume loss. No midline shift. Minimal FLAIR hyperintensities scattered in the supratentorial white matter, nonspecific. No diffusion restriction to suggest acute infarction. The major arterial flow voids of the skullbase are preserved. Globes are symmetric. Paranasal sinuses are well aerated. Small right mastoid effusion. Procedure Note Naveen Salazar MD - 09/23/2024 For Patients: As a result of the Cures Act, medical imagingexams and procedure reports are released immediately into your electronicmedical record. You may view this report before your referring provider.If you have questions, please contact your health care provider. INDICATION: Glioblastoma. TECHNIQUE: Multiplanar multisequence MR imaging of the brain prior to and followingintravenous contrast. COMPARISON: MRI brain 07/26/2024. FINDINGS: Postsurgical changes of right frontotemporoparietal craniotomy withresection cavity in the lateral right temporal lobe demonstrating intervalmaturation. Shallow fluid collection subjacent to the craniotomy flap hasdecreased in size. Intrinsic T1 shortening within the resection cavity,compatible with blood products. Enhancement along the resection cavitymargin measuring up to 8 mm posteriorly (series 21 image 70), notsignificantly changed. No enlarging pathologic intracranial enhancement.No concerning areas of hyperperfusion. Stable enhancement extendingthrough the craniotomy flap into the overlying temporalis muscle measuring1.4 cm (series 21 image 63). Stable small to moderate FLAIR hyperintensity within the anterior righttemporal lobe. Mild diffuse cerebral volume loss. No midline shift. Minimal FLAIRhyperintensities scattered in the supratentorial white matter,nonspecific. No diffusion restriction to suggest acute infarction. The major arterial flow voids of the skullbase are preserved. Globes aresymmetric. Paranasal sinuses are well aerated. Small right mastoideffusion. IMPRESSION: 1. No findings to suggest tumor progression. 2. Enhancement along the right temporal resection cavity margin andextending into the right temporalis muscle, not significantly changedcompared to 07/26/2024. Dictated by Naveen Salazar MD @ 09/23/2024 9:11:25 AM (Electronically Signed) Shannon Hrachova DO MR * (ABNORMAL) CBC WITH AUTO DIFFERENTIAL (09/23/2024 7:03 AM CDT) Only the most recent of2 resultswithin the time period is included. WHITE BLOOD COUNT 4.0(L) 4.5 - 11.0 thou/cu mm 09/23/2024 7:17 AM T [facility] RED BLOOD COUNT 3.94(L) 4.30 - 5.90 mil/cu mm 09/23/2024 7:17 AM [facility] HEMOGLOBIN 13.1(L) 13.5 - 17.5 g/dL 09/23/2024 7:17 AM T [facility] HEMATOCRIT 40.0 37.0 - 53.0 % 09/23/2024 7:17 AM T [facility] MCV 102(H) 80 - 100 fL 09/23/2024 7:17 AM T [facility] MCH 33.2 26.0 - 34.0 pg 09/23/2024 7:17 AM [facility] MCHC 32.8 32.0 - 36.0 g/dL 09/23/2024 7:17 AM [facility] RDW 13.4 11.5 - 15.5 % 09/23/2024 7:17 AM [facility] PLATELET COUNT 179 140 - 440 thou/cu mm 09/23/2024 7:17 AM [facility] MPV 8.8 6.5 - 11.0 fL 09/23/2024 7:17 AM [facility] NRBC 0.0 % 09/23/2024 7:17 AM [facility] ABS NRBC 0.0 thou /cu mm 09/23/2024 7:17 AM T [facility] % NEUT 53.7 % 09/23/2024 7:17 AM T [facility] % LYMPH 33.3 % 09/23/2024 7:17 AM T [facility] % MONO 10.1 % 09/23/2024 7:17 AM CDT [facility] % EOS 1.8 % 09/23/2024 7:17 AM CDT [facility] % BASO 0.8 % 09/23/2024 7:17 AM CDT [facility] % IMMATURE GRAN (METAS,MYELOS,[place] OS) 0.3 % 09/23/2024 7:17 AM CDT [facility] ABSOLUTE NEUTROPHILS 2.1 1.7 - 7.0 thou/cu mm 09/23/2024 7:17 AM CDT [facility] ABSOLUTE LYMPHOCYTES 1.3 0.9 - 2.9 thou/cu mm 09/23/2024 7:17 AM CDT [facility] ABSOLUTE MONOCYTES 0.4 <0.9 thou/cu mm 09/23/2024 7:17 AM CDT [facility] ABSOLUTE EOSINOPHILS 0.1 <0.5 thou/cu mm 09/23/2024 7:17 AM CDT [facility] ABSOLUTE BASOPHILS 0.0 <0.3 thou/cu mm 09/23/2024 7:17 AM CDT [facility] ABSOLUTE IMMATURE GRANULOCYTES(MET ,MYELOS,PROS) 0.0 <0.3 thou/cu mm 09/23/2024 7:17 AM CDT [facility] Blood BLOOD SPECIMEN / Unknown Butterfly / Unknown 09/23/2024 7:03 AM CDT 09/23/2024 7:07 AM CDT Narrative [facility] - 09/23/2024 7:17 AM CDT This procedure was originally ordered at [facility]. This procedure was originally ordered at [facility]. Jacobo Flores NP HEMATOLOGY [facility] [address] [place] [address], * (ABNORMAL) COMP METABOLIC PANEL (09/23/2024 7:03 AM CDT) Only the most recent of2 resultswithin the time period is included. Pathologist [facility] SODIUM 141 136 - 145 mmol/L 09/23/2024 7:39 AM [facility] POTASSIUM 3.7 3.5 - 5.1 mmol/L 09/23/2024 7:39 AM [facility] CHLORIDE 104 98 - 107 mmol/L 09/23/2024 7:39 AM [facility] CO2,TOTAL 26 22 - 29 mmol/L 09/23/2024 7:39 AM [facility] ANION GAP 11 5 - 18 09/23/2024 7:39 AM [facility] GLUCOSE 98 70 - 99 mg/dL 09/23/2024 7:39 AM [facility] CALCIUM 9.6 8.6 - 10.0 mg/dL 09/23/2024 7:39 AM [facility] BUN 13 6 - 20 mg/dL 09/23/2024 7:39 AM [facility] CREATININE 0.72 0.70 - 1.20 mg/dL 09/23/2024 7:39 AM [facility] BUN/CREAT RATIO 18 10 - 20 7:39 AM [facility] eGFR >90 >90 mL/min/1.7 3m2 09/23/2024 7:39 AM [facility] Comment:As of 2022, eG FR is calculated by the CKD-EPI creatinine equation without race adjustment. eGFR can be influenced by muscle mass, exercise, and diet. The reported eGFR is an estimation only and is only applicable if the renal function is stable. ALBUMIN 4.2 4.0 - 4.9 g/dL 09/23/2024 7:39 AM [facility] PROTEIN,TOTAL 6.8 6.0 - 8.0 g/dL 09/23/2024 7:39 AM [facility] BILIRUBIN,TOTAL 0.5 0.0 - 1.2 mg/dL 09/23/2024 7:39 AM CDT [facility] ALK PHOSPHATASE 53 40 - 129 IU/L 09/23/2024 7:39 AM CDT [facility] ALT (SGPT) 118(H) 10 - 50 IU/L 09/23/2024 7:39 AM CDT [facility] AST (SGOT) 84(H) 10 - 50 IU/L 09/23/2024 7:39 AM CDT [facility] Blood BLOOD SPECIMEN / Unknown Butterfly / Unknown 09/23/2024 7:03 AM CDT 09/23/2024 7:07 AM CDT Jacobo Flores NP CHEMISTRY [facility] [address] [place] [address], * SCAN CORRESP-IMAGING (08/22/2024 3:17 PM CDT) Only the most recent of2 resultswithin the time period is included. Anatomical Region Laterality Modality Other Narrative 08/22/2024 3:17 PM CDT Ordered by an unspecified provider. Other Clinical Staff OTHER * TOXOPLASMA GONDII PCR BLOOD OR CSF (07/26/2024 12:56 PM CDT) TOXOPLASMA GONDII PCR Negative Negative 08/04/2024 10:06 PM CDT [facility] Comment: No Toxoplasma gondii DNA detected. This test was developed and its performance characteristics determined by [employer]. It has not been cleared or approved by the U.S. Food and Drug Administration. The FDA has determined that such clearance or approval is not necessary. This test is used for clinical purposes. It should not be regarded as investigational or research. Other BLOOD SPECIMEN / Unknown Venipuncture / Unknown 07/26/2024 12:56 PM CDT 07/26/2024 1:02 PM CDT Narrative [facility] - 08/04/2024 10:06 PM CDT Performed at: 01 - [facility] [address] [place], [place] [id number] Roller Coaster Engineer: Fauzia Harmon MD, Phone: [phone] Shannon Ryder DO SEND OUTS [facility] [address] [place] [address], * MR HEAD BRAIN VENOGRAM WWO (07/26/2024 [...] Narrative 07/26/2024 10:39 AM CDT For Patients: As a result of the Cures Act, medical imaging exams and procedure reports are released immediately into your electronic medical record. You may view this report before your referring provider. If you have questions, please contact your health care provider. Indication Glioblastoma. Technique MRI brain: Multiplanar multisequence MR imaging prior to and following intravenous contrast. MRV head: T1, cwik-dy-yijpzr, T1 post-contrast MRV images of the head. [...] to 1.4 cm (series 6 image 67). Lgftg-wl-mwfnpefw FLAIR hyperintensity within the anterior right temporal [...] to and followingintravenous contrast. MRV head: T1, grtm-ha-jxaihx, T1 post-contrast MRV images of the head. [...] to 1.4 cm (series 6 image 67). Siaho-sb-qpoydmwu FLAIR hyperintensity within the anterior right temporallobe, [...] CHOLESTEROL,TOTA L 257(H) 100 - 199 mg/dL [facility] TRIGLYCERIDES 514(H) <150 mg/dL [facility] HDL CHOLESTEROL 54 >40 mg/dL [facility] CHOL/HDL RATIO 4.76(H) <4.50 [facility] NON-HDL CHOLESTEROL 203 Undefined mg/dL [facility] LDL CHOLESTEROL Invalid LDL when Trig >400 reflexed to measured LDL. [facility] PATIENT STATUS Fasting [facility] Blood specimen (specimen) BLOOD SPECIMEN / Unknown 02/11/2014 8:12 AM CDT 02/11/2014 8:06 AM CDT Anali Bailey MD CHEMISTRY [facility] INTERNAL ZIP [address] [place] [address] from Last 3 Months or Most Recently Relevant to Health Maintenance Additional Health Concerns Infection Onset Date Last Indicated MRSA Comment:Order Contact Precaution Nares surveillance cultures needed to clear patient if <12 months since positive culture. If >12 months since positive culture, precautions can be discontinued if patient has no MRSA risk factors. 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, receiving hemodialysis, has chronic open wounds/skin damage, has long-term percutaneous indwelling medical devices Exclusions for nares collection (if <12 months since positive culture) include all of the previous exclusions plus patients on antibiotics 7 days prior to collection 11/28/2017 11/28/2017 Advance Directives Documents on File Type Date Recorded Patient Flasher Adjuster Expl anation Power of Breakfast Hostess 04/25/2024 04/25/2024 Healthcare Directive 04/25/2024 INVALID , MISSING PAGE, 04/25/2024 * Full Code (Latest Code Status on File) Date Activated Date Inactivated Comments 04/17/2024 8:30 AM 04/29/2024 4:53 PM Question Answer Comments Code Status Discussion: Reviewed Preferences * Full Code Date Activated Date Inactivated Comments 12/22/2016 11:17 PM 12/24/2016 8:25 PM Question Answer Comments Code Status Discussion: Per Existing Order Care Teams Exterior Designer Relationship Specialty Start Date End Date Rodrigo Hughes MD [address] [place] [address] PCP - General Family Practice 05/01/24 Trini Pearson RN [address] [address] Nurse Navigator - Oncology Registered Nurse 05/01/24 Shannon Ryder DO [address] [place] [address] Neurooncology Neurology 05/01/24 Jacobo Flores NP [address] [place] [address] Neurooncology Nurse Practitioner - Family 05/01/24 Madina Burgos, NUCLEAR MEDICINE SPECIALIST [address] [place] [address] Nurse Practitioner Oncology 09/06/24 Annie Cabrera RN, BSN [address] [address] Cancer Rehab Care Coordination - [facility] Registered Nurse 09/19/24
--- OUTSIDE RECORDS SUMMARY | 2024-10-21 23:48 | XMS_ITS | Clinical Summary ---
Author Organization [facility] Address [address] [place] [address] Care Team Providers Care Fire Control Technician B Name Role Phone Elsewhere, Pcp Primary Care Provider Unavailabl e Source Comments Patient records contain information from all sites at [facility]. For routine questions regarding patient records, call [phone] during business hours, M-F 8:00 AM - 5:00 PM Central Time. Record requests for emergency care only can be directed to [phone] at any time.[facility] Allergies No known active allergies Medications gabapentin (NEURONTIN) 300 mg capsule Take 900 mg by mouth. 900 mg in am and midday and 1200 mg at bedtime 8 Active loratadine-pseu doephedrine (CLARITIN-D 24-hour) 10-240 mg per 24 hr tablet Take 1 tablet by mouth daily. Active FLUoxetine (PROzac) 40 mg capsule Take 40 mg by mouth daily. 3 9 Active ibuprofen (ADVIL,MOTRIN) 200 mg tablet Take 1 tablet (200 mg total) by mouth every 8 (eight) hours as needed for moderate pain or score 4-6 of 10. 30 tablet 1 9 Active mupirocin (BACTROBAN) 2 % ointment Apply 1 application topically 3 (three) times a day. 22 g 1 0 Active Additional Information Patient not taking.Reported on 05/08/2024 mupirocin (BACTROBAN) 2 % ointment Apply 1 application topically 3 (three) times a day. Apply to each nostril 3 times daily. 22 g 1 Active Additional Information Patient not taking.Reported on 05/08/2024 oxyCODONE (ROXICODONE) 5 mg immediate release tabletIndicatio ns:Acute Pain Take 1 tablet (5 mg total) by mouth every 4 (four) hours as needed for pain (Take if pain is not controlled with Tylenol alone.) for up to 15 doses Indication: acute pain. 15 tablet 1 Active Additional Information Patient not taking.Reported on 05/08/2024 chlorhexidine (PERIDEX) 0.12 % mouthwash RINSE MOUTH WITH 15 ML FOR 30 SECONDS AM AND PM AFTER TOOTHBRUSHING. EXPECTORATE AFTER RINSING. DO NOT SWALLOW. 2 Active miscellaneous medical supply misc CPAP machine [...] Need: 99 months, Frequency of use: Daily 0 Active sildenafil (REVATIO) 20 mg tablet TAKE 1 TO 5 TABLETS BY MOUTH DAILY NEEDED 2 Active mupirocin (BACTROBAN) 2 % ointment APPLY TOPICALLY TO THE AFFECTED AREA THREE TIMES DAILY NEEDED 22 g 2 2 Active Additional Information Patient not taking.Reported on 05/08/2024 famotidine (PEPCID) 20 mg tablet Take 1 tablet by mouth 2 (two) times a day. 4 Active dexAMETHasone (DECADRON) 2 mg tablet Take 2 mg by mouth. 4 Active levETIRAcetam (KEPPRA) 500 mg tablet Take 1 tablet by mouth 2 (two) times a day. 4 Active LORazepam (Ativan) 1 mg tablet Take 1 tablet (1 mg total) by mouth daily. Take 30-45 minutes prior to radiation 30 tablet 4 Active melatonin 3 mg tablet Take 6 mg by mouth at bedtime. 4 Active ondansetron (Zofran) 8 mg tablet Take 8 mg by mouth every 8 (eight) hours as needed for vomiting or nausea. 4 Active losartan (Cozaar) 100 mg tablet Take 1 tablet by mouth daily. 4 Active Active Problems Problem Noted Date Diagnosed Date Counseling Phase Of Life Problem 05/28/2024 Malignant Neoplasm Of Brain 04/24/2024 Cancer Staging:Pathologic stage from 04/19/2024:WHO G4- Unsigned Teeth Disorder 11/18/2022 Overview (11/18/2022): Added automatically from request for surgery [id number] Amputation Leg Above Knee Status Post Right 10/27 Overview (11/11/2019): Added automatically from request for surgery [id number] Pain Limb Generalized 09/04/2019 Overview (09/04/2019): Added automatically from request for surgery [id number] Amputation Leg Below Knee Status Post Left [...] How often do you attend spiritism or religion serv ices? Patient declined 07/26/2021 Do you [...] Patient declined 07/26/2021 [facility] - Occupational [...] Recorded Sex Assigned at Not on file Legal Sex Male 3:29 PM CDT Gender Identity Male 04/06/2020 9:34 AM CDT Sexual Orientation Straight 04/06/2020 9: 34 AM CDT Last Filed Vital Signs Vital Sign Reading Time Taken Comments Blood Pressure 125/70 06/26/2024 10:32 AM CDT Pulse 67 06/19/2024 9:56 AM CDT Temperature 36.6 C (97.9 F) 06/26/2024 10:32 AM CDT Respiratory Rate 18 10/08/2021 4:40 PM CLINICAL LABORATORY TECHNICIAN Oxygen Saturation 96% 10/08/2021 4:40 PM CLINICAL LABORATORY TECHNICIAN Inhaled Oxygen Concentration - - Weight 115 kg (254 lb 10.1 oz) 06/26/2024 10:32 AM CDT Height 177.8 cm (5' 10) 10/08/2021 3:55 PM CLINICAL LABORATORY TECHNICIAN Body Mass Index 36.54 10/08/2021 3:55 PM CLINICAL LABORATORY TECHNICIAN Plan of Treatment Health Maintenance Due Date [...] Additional history exists Potassium Level 07/26/2025 07/26/2024, 0 03/2024, 04/25/2024, Additional history exists Sodium Level 07/26/2025 07/26/2024, 060 03/2024, 04/29/2024, Additional history exists Fasting Glucose for Diabetes Screening 07/26/2027 07/26/2024, 05/01/2024, 04/25/2024, Additional history exists DTaP,Tdap,and Td Vaccines (3 - Td or Tdap) 08/18/2029 08/18/2019, 05/21/2012 HPV Vaccines Aged Out No longer eligi ble based on patient's age to complete this topic IPV Vaccines Aged Out No longer eligi ble based on patient's age to complete this topic Medical Devices Implanted Type Area Sales Strategy Manager Device Identifier Shelf Expiration Date Model / Serial / Lot [facility] 9.0 - [id number] Implanted:Qty : 1 on 09/09/2021 by Sanford Mena M.D. at [facility] Hardware e.g. pins/screws/ rods Right: Leg Ethicon [id number] 05/26/2026 MCS20 / / [id number] [facility] Apr [facility] 9.75 - [id number] Implanted:Qty : 1 on 09/09/2021 by Sanford Mena M.D. at [facility] Hardware e.g. pins/screws/ rods Right: Leg Ethicon [id number] 05/26/2026 MSM20 / / [id number] Explanted Type Area Sales Strategy Manager Device Identifier Shelf Expiration Date Model / Serial / Lot Cmnt Bn Hi Visc Pmma 40 - [id number] Implanted:Qty: 1 on 11/15/2019 by Maude Shah M.D. at [facility] Explanted:Qty: 1 on 12/03/2019 by Sanford Mena M.D. at [facility] Bone Cement Right: Femur Aleta [id number] 6191-1-00 1 / / Description:7 antibiotic juaquin ent beads and 1 antibiotic cement dowel removed from right femur/leg Procedures Procedure Name Priority Date/Time Associated Diagnosis Comments CREATININE WITH EGFR, S/P Routine 12/18/2019 9:40 PM CLINICAL LABORATORY TECHNICIAN Infection Of Amputation Stump Right Lower Extremity (HCC) BASIC METABOLIC PANEL, S/P Routine 11/19/2019 7:46 AM CLINICAL LABORATORY TECHNICIAN from Last 3 Months or Most Recently Relevant to Health Maintenance Insurance [facility] Address: [facility] [id number] [place] [id number] Advance Directives For more information, please contact: [phone] * Full Code (Latest Code Status on [...] Answer Comments Full Code: Discussed Care Teams Fire Control Technician B Relationship Specialty Start Date End Date Elsewhere, Pcp PCP - General Family Medicine 09/09/21
--- OUTSIDE RECORDS SUMMARY | 2024-10-21 23:48 | XMS_ITS | Encounter Summary ---
Author Organization [facility] Address [address] [place] [address] Care Team Providers Care Chief Dietitian Name Role Phone Elsewhere, Pcp Primary Care Provider Unavailabl e Encounter Details Date Type Department Care Team (Late st Contact Info) Description 07/02/2024 Documentation Department of Radiation Oncology in [place], [place] [address] [place] [phone] Genesis Aguilar M.D. [address] [place] [phone] Social History Tobacco Use Types Packs/Day Years [...] How often do you attend islam or hinduism serv ices? Patient declined 07/26/2021 [...] medical care, and heating? Patient declined [facility] - Occupational Stress Questionnaire Answer Date [...] (cGy) First Treatment Last Treatment Elapsed Days [id number] 200 6000 6000 05/20/2024 07/02/2024 43 Course [...] R.N., 07/26/2024 4:06 PM CDT [facility] [address] [place], [place] [id number] Cosigned by Genesis Aguilar M.D. at 07/31/2024 8:12 AM CDT documented in this encounter Plan of Treatment Not on file documented as of this encounter Visit Diagnoses Diagnosis Malignant Neoplasm Of Brain (HCC)- Primary documented in this encounter Additional Health Concerns Infection Onset Date Last Indicated Resolved Time Protective Environment 05/27/2024 05/27/202407/26 5:47 AM CDT documented as of this encounter Care Teams Chief Dietitian Relationship Specialty Start Date End Date Elsewhere, Pcp PCP - General Family Medicine 09/09/21 documented as of this encounter
--- OUTSIDE RECORDS SUMMARY | 2024-10-21 23:48 | XMS_ITS ---
Author Organization [facility] Address [address] [place] [address] Care Team Providers Care Fitter'S Assistant Name Role Phone Elsewhere, Pcp Primary Care Provider Unavailabl e Active Problems Problem Noted Date Diagnosed Date Counseling Phase Of Life Problem 05/28/2024 Malignant Neoplasm Of Brain 04/24/2024 Cancer Staging:Pathologic stage from 04/19/2024:WHO G4- Unsigned Teeth Disorder 11/18/2022 Overview (11/18/2022): Added automatically from request for surgery [id number] Amputation Leg Above Knee Status Post Right 10/27 Overview (11/11/2019): Added automatically from request for surgery [id number] Pain Limb Generalized 09/04/2019 Overview (09/04/2019): Added automatically from request for surgery [id number] 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 Past Plans Radiation Treatments * Plan Last Treated On Elapsed Days Fractions Treated Prescribed Fraction Dose Prescribed Total Dose [id number] 07/02/2024 43 30 of 30 200 cGy 6,000 cGy Reference Point Last Treated On Elapsed Days Session Dose Total Dose [id number] 07/02/2024 43 200 cGy 6,000 cGy
--- OUTSIDE RECORDS SUMMARY | 2024-10-21 23:48 | XMS_ITS | Referral Summary ---
Author Organization [facility] Address [address] [place] [address] Care Team Providers Care Veneer Clipper Name Role Phone Elsewhere, Pcp Primary Care Provider Unavailabl e Source Comments Patient records contain information from all sites at [facility]. For routine questions regarding patient records, call [phone] during business hours, M-F 8:00 AM - 5:00 PM Central Time. Record requests for emergency care only can be directed to [phone] at any time.[facility] Allergies No known active allergies Medications [...] (11/18/2022): Added automatically from request for surgery [id number] Amputation Leg Above Knee Status Post Right 10/27 Overview (11/11/2019): Added automatically from request for surgery [id number] Pain Limb Generalized 09/04/2019 Overview (09/04/2019): Added automatically from request for surgery [id number] Amputation Leg Below Knee Status Post Left [...] How often do you attend shinto or shinto serv ices? Patient declined 07/26/2021 [...] CDT Respiratory Rate 18 10/08/2021 4:40 PM SUPERVISOR SECURITIES VAULT Oxygen Saturation 96% 10/08/2021 4:40 PM SUPERVISOR SECURITIES VAULT Inhaled Oxygen Concentration - - Weight 115 kg (254 lb 10.1 oz) 06/26/2024 10:32 AM CDT Height 177.8 cm (5' 10) 10/08/2021 3:55 PM SUPERVISOR SECURITIES VAULT Body Mass Index 36.54 10/08/2021 3:55 PM SUPERVISOR SECURITIES VAULT Plan of Treatment Not on file Medical Devices Implanted Type Area Commissioned Security Officer Device Identifier Shelf Expiration Date Model / Serial / Lot [facility] 9.0 - [id number] Implanted:Qty : 1 on 09/09/2021 by Sanford Mena M.D. at [facility] Hardware e.g. pins/screws/ rods Right: Leg Ethicon [id number] 05/26/2026 MCS20 / / [id number] [facility] 9.75 - [id number] Implanted:Qty : 1 on 09/09/2021 by Sanford Mena M.D. at [facility] Hardware e.g. pins/screws/ rods Right: Leg Ethicon [id number] 05/26/2026 MSM20 / / [id number] Explanted Type Area Commissioned Security Officer Device Identifier Shelf Expiration Date Model / Serial / Lot Cmnt Bn Hi Visc Pmma 40 - [id number] Implanted:Qty: 1 on 11/15/2019 by Maude Shah M.D. at [facility] Explanted:Qty: 1 on 12/03/2019 by Sanford Mena M.D. at [facility] Bone Cement Right: Femur Aleta [id number] 6191-1-00 Description:7 antibiotic juaquin ent beads and 1 antibiotic cement dowel removed from right femur/leg Procedures Procedure Name Priority Date/Time Associated Diagnosis Comments CREATININE WITH EGFR, S/P Routine 12/18/2019 9:40 PM SUPERVISOR SECURITIES VAULT Infection Of Amputation Stump Right Lower Extremity (HCC) BASIC METABOLIC PANEL, S/P Routine 11/19/2019 7:46 AM SUPERVISOR SECURITIES VAULT from Last 3 Months or Most Recently Relevant to Health Maintenance Insurance [facility] Advance Directives For more information, please contact: [phone] * Full Code (Latest Code Status on [...] Answer Comments Full Code: Discussed Care Teams Veneer Clipper Relationship Specialty Start Date End Date Elsewhere, Pcp PCP - General Family Medicine 09/09/21
[2024-10-22 00:03] LABS: PCR FLU A Negative PCR FLU A (Negative); PCR FLU B Negative PCR FLU B (Negative); PCR RSV Negative PCR RSV (Negative); SARS PCR* Negative SARS-CoV-2 (Negative)
[2024-10-22 00:04] LABS: Albumin* 4.3 g/dL (3.3-5.0); Chloride* 104 mmol/L (96-114); Sodium* 140 mmol/L (135-149)
[2024-10-22 00:07] LABS: Alanine Aminotransferase* 75 U/L (4-50); Alkaline Phosphatase* 56 U/L (40-150); Anion Gap 9 mEq/L (7-15); Aspartate Amino Transferase* 50 U/L (12-35); Bilirubin Total* 0.7 mg/dL (0.1-1.5); Blood Urea Nitrogen* 22 mg/dL (7-30); Carbon Dioxide* 27 mmol/L (20-32); Creatinine* 0.7 mg/dL (0.5-1.5); Est. Creatinine Clearance* 130.36; Estimated Glomerular Filt Rate 112 ml/min; Total Protein* 6.6 g/dL (6.0-8.3)
[2024-10-22] MEDS: NICOTINE 21 MG PATCH 1 PATCH TRANSDERMA (00:07)
[2024-10-22 00:08] LABS: Calcium* 9.9 mg/dL (8.4-10.6); Glucose* 140 mg/dL (60-115)
[2024-10-22 00:11] LABS: C Reactive Protein* < 0.5 mg/dL (0.5-1.0)
[2024-10-22 00:24] LABS: Procalcitonin* 0.06 ng/mL (<0.50)
== END 2024-10-22 00:55 | disposition home or self-care (01) ==
PROVIDERS: Family Medicine; Emergency Provider Family Medicine; PCP Family Medicine
DX: R11.2 Nausea with vomiting, unspecified (principal); T50.995A Adverse effect of other drugs, medicaments and biological substances, initial encounter; Z08 Encounter for follow-up examination after completed treatment for malignant neoplasm
CPT/HCPCS: 36415; 71045; 80053; 81001; 83605; 84145; 85025; 86140; 87040; 87631; 96360; 99284; J7030; S4990

== ENCOUNTER 2024-12-17 09:43 | Emergency (ER) | payer OTHER, SELFPAY ==
[2024-12-17] VITALS (7 sets, daily range): BP systolic 122–136; BP diastolic 79–81; PULSE 62–77; RESP 16; TEMP 37.2; O2SAT 87–96; BMI 34.4
--- NOTE | 2024-12-17 10:08 | ED_ITS ---
HPI - General Adult General Time Seen by Provider: 10:09 Date Seen: 12/17/24 Chief complaint: Abdominal Pain Stated complaint: Right upper quadrant pain Time Seen by Provider: 12/17/24 10:04 Source: patient and RN notes reviewed Mode of arrival: ambulatory Limitations: no limitations History of Present Illness HPI narrative: This 49-year-old male is coming in with concern of right-sided lower chest wall to upper abdominal symptoms. He was up at 5:00 a.m. and took his normal routine medicines, went back to sleep for couple more hours. When he got up for the [employer], awoke the 2nd time with severe right-sided chest pain. He noted pain in the right lower chest wall, upper abdominal area. It hurt with breathing, does hurt to move. He does note that about 2 weeks ago he fell in his wheelchair, landing on the right side across the arm of the wheelchair. He has had some intermittent right-sided pain along that chest wall for the last 2 weeks. This morning though it was severe. He has not been sick with cough or fever prior to this. He has rotator cuff issues in the shoulder that of plagued him for about 3 years but this is different. He does still have his gallbladder. There is some pain that radiates around the right flank area, feels pain that does generalize up towards the right shoulder with this. He is not short of breath per se. He does have oral chemotherapy with Temodar for history of glioblastoma. He had glioblastoma resection Apr 19 2024 at [facility]. 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 He has had a history of MRSA. He had a left septic olecranon bursitis treated here surgically in July of 2024. Related Data Home Medications ?Medication ?Instructions ?Recorded ?Confirmed ibuprofen 200 mg tablet (Advil) 400 mg PO .4-6X/DAY PRN 04/15/24 12/17/24 aluminum chloride 20 % topical 1 applic topical QHS 08/14/24 12/17/24 solution clotrimazole-betamethasone 1 1 applic topical BID PRN 08/14/24 12/17/24 %-0.05 % topical cream levetiracetam 500 mg tablet 500 mg PO BID 08/14/24 12/17/24 temozolomide 100 mg capsule 200 mg PO . DIREC 08/14/24 12/17/24 temozolomide 140 mg capsule 140 mg PO DIRECTED 08/14/24 12/17/24 diazepam 5 mg tablet 5 mg PO BID PRN 12/16/24 12/17/24 Previous Rx's ?Medication ?Instructions ?Recorded gabapentin 300 mg capsule 900 - 1,200 mg (3 - 4 x 300 mg) PO 04/05/24 TID #900 caps losartan 100 mg tablet 100 mg PO QDAY #90 tabs 05/06/24 naltrexone 50 mg tablet 50 mg PO QDAY #90 tabs 05/24/24 fluoxetine 40 mg capsule 40 mg PO QDAY #90 caps 11/28/24 oxycodone 5 mg tablet 5 mg PO Q6H PRN pain #20 tabs 12/17/24 Allergies Allergy/AdvReac Type Severity Reaction Status Date / Time No Known Drug Allergies Allergy Verified 12/17/24 09:55 Review of Systems Status of ROS: Reports: 6 or more systems reviewed and unremarkable except as noted in History and below PFSH [facility] Medical History Headache (04/17/24) ?R51.9 - Headache, unspecified (ICD-10) 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) ?C71.9 - Malignant neoplasm of brain, unspecified (ICD-10) Lesion of brain (04/17/24) ?G93.9 - Disorder of brain, unspecified (ICD-10) Cerebral edema (04/17/24) ?G93.6 - Cerebral edema (ICD-10) Patient has active power of commercial real estate attorney for property History of MRSA infection ?Z86.14 - Personal history of Methicillin resistant Staphylococcus aureus infection (ICD-10) Tobacco use ?Z72.0 - Tobacco use (ICD-10) Immunocompromised ?D84.9 - Immunodeficiency, unspecified (ICD-10) Alcohol abuse ?F10.10 - Alcohol abuse, uncomplicated (ICD-10) Family history of colon cancer ?Z80.0 - Family history of malignant neoplasm of digestive organs (ICD-10) Erectile dysfunction ?N52.9 - Male erectile dysfunction, unspecified (ICD-10) Drug dependence ?F19.20 - Other psychoactive substance dependence, uncomplicated (ICD-10) Elevated liver enzymes ?R74.8 - Abnormal levels of other serum enzymes (ICD-10) Seasonal allergies ?J30.2 - Other seasonal allergic rhinitis (ICD-10) Adenomatous polyp of colon ?D12.6 - Benign neoplasm of colon, unspecified (ICD-10) Depression ?F32.A - Depression, unspecified (ICD-10) Anxiety ?F41.9 - Anxiety disorder, unspecified (ICD-10) Peripheral neuropathy ?G62.9 - Polyneuropathy, unspecified (ICD-10) Low back pain potentially associated with radiculopathy ?M54.50 - Low back pain, unspecified (ICD-10) Sleep apnea ?G47.30 - Sleep apnea, unspecified (ICD-10) Hypertension ?I10 - Essential (primary) hypertension (ICD-10) Hyperlipidemia ?E78.5 - Hyperlipidemia, unspecified (ICD-10) Fatty liver ?K76.0 - Fatty (change of) liver, not elsewhere classified (ICD-10) Balance problems ?R26.89 - Other abnormalities of gait and mobility (ICD-10) Glioblastoma of parietal lobe ?C71.3 - Malignant neoplasm of parietal lobe (ICD-10) Obesity (BMI 30-39.9) ?E66.9 - Obesity, unspecified (ICD-10) Surgical History H/O elbow surgery (08/21/24) ?Z98.890 - Other specified postprocedural states (ICD-10) H/O lower limb amputation ?Z89.619 - Acquired absence of unspecified leg above knee (ICD-10) S/P craniotomy ?Z98.890 - Other specified postprocedural states (ICD-10) Status post above-knee amputation of right lower extremity ?Z89.611 - Acquired absence of right leg above knee (ICD-10) History of oral surgery (05/21/12) ?Z98.890 - Other specified postprocedural states (ICD-10) Social History What is your current living situation?: I presently have a place to live Problems where you live: no known problems Problems where you live details: N/A In the past 12 months, utilities in danger of being shut off: no In past 12 months, lack of transportation kept you from medical appts, meetings, work, or getting things needed for daily living: no In the past 12 mos, have been you worried that your food would run out before you had money to buy more?: never true In the past 12 mos, the food you bought just didn't last and you didn't have money to buy more?: never true Highest level of school completed/degree received: high school graduate Smoking Status: Never smoker Do you use any of these nicotine containing products: None How often do you have a drink containing alcohol: 2-4 times a month AUDIT-C Alcohol total score: 2 Non-prescribed substance use: denies use Caffeine: Yes How often does anyone, including family, friends and others, physically hurt you : never How often does anyone, including family, friends and others, insult or talk down to you: never How often does anyone, including family, friends and others, threaten you with harm: never How often does anyone, including family, friends and others, scream or curse at you: never service: No Exam Const: Vital Signs, click to edit/add: Vital Signs - 24 hr 12/17/24 09:45 12/17/24 10:22 12/17/24 11:15 Temperature 99.0 F Pulse Rate Pulse Rate [Pulse Oximeter] 77 Respiratory Rate 16 Blood Pressure Blood Pressure [Le ft Upper Arm] 136/81 Pulse Oximetry 92 93 87 L Oxygen Delivery Me thod Room Air Room Air Oxygen Flow Rate 12/17/24 11:18 12/17/24 11:25 12/17/24 11:45 Temperature Pulse Rate 73 64 Pulse Rate [Pulse Oximeter] Respiratory Rate Blood Pressure 122/79 Blood Pressure [Le ft Upper Arm] Pulse Oximetry 87 L 95 92 Oxygen Delivery Me thod Room Air Nasal Cannula Nasal Cannula Oxygen Flow Rate 2 2 Jose is a very pleasant 49-year-old male sitting in his wheelchair. He is alert, interactive, no apparent distress. He has well-healed surgical scar over the right cranium. Pupils equal round reactive, sclera clear. Symmetrical facial function, speech is normal. Neck is thicker but supple, no masses or adenopathy. Lungs are clear but he has decreased effort with deep breathing due to pain. I do not hear any wheezing or crackles, there is no tachypnea. He has some generalized tenderness when I palpate over his right anterolateral lower chest wall. I do not feel any step-off or crepitus. There is some mild right upper quadrant pain without any rebound or guarding, do not appreciate organomegaly but his positioning in his wheelchair does complicate examination. Right lower extremity amputated about midthigh. CV regular rate and rhythm, no murmur, normal S1-S2. Documenting provider has reviewed patient's vital signs: yes Course Course ED Course: This patient could have traumatic, possible complications of chemotherapy are cancer, consider infectious etiology for causation of his symptoms. Will get full labs, EKG, consider atypical cardiac ischemia. It is possible could be gallbladder as well. His history of trauma within the last 2 weeks is concerning. Will place him on pulse oximetry, place an IV. Will give him morphine and Zofran. He does seem to have paroxysm is a pain at times with breathing or if moving. Will get chest CT PE protocol, rule out traumatic, thromboembolic, potential infectious etiology. Will also take this through his abdomen and pelvis. If there is concern for gallbladder etiology of his symptoms, may need to proceed with ultrasound as well. Reevaluation(s) Time of Reevaluation #1: 11:25 Reevaluation #1: Nursing reports that patient had oxygenation down to 87% after morphine. They did put on supplemental oxygen with recovery. Time of Reevaluation #2: 12:20 Reevaluation #2: Have reviewed with Jose his CT reports showing concerning metastatic lesions in the right 8th rib with pathologic fracture, multiple vertebral lesions concerning for metastases. Glioblastoma is listed to metastasis 1% in the literature that I reviewed. He also has a soft tissue mass along the left paraspinous area. He is tired from the morphine but is still having the right sided pain. Awaiting to talk to oncology. Consultations Consultation #1: Spoke with Corky GALINDO from [facility], reviewed CT findings. This is concerning for new cancer, they will need to get a biopsy. They will be getting him a followup appointment as soon as possible and contact him. Time: 12:29 Vital Signs Vital signs: Initial Vital Signs Temperature 99.0 F 12/17/24 09:45 Temperature Source Temporal Artery Scan 12/17/24 09:45 Pulse Rate 77 12/17/24 09:45 Respiratory Rate 16 12/17/24 09:45 Blood Pressure 136/81 12/17/24 09:45 Blood Pressure Mean 99 12/17/24 09:45 Blood Pressure Position Sitting 12/17/24 09:45 Pulse Oximetry 92 12/17/24 09:45 Oxygen Delivery Method Room Air 12/17/24 09:45 Vital Signs Temperature 99.0 F 12/17/24 09:45 Pulse Rate 77 12/17/24 09:45 Respiratory Rate 16 12/17/24 09:45 Blood Pressure 136/81 12/17/24 09:45 Pulse Oximetry 92 12/17/24 09:45 Oxygen Delivery Method Room Air 12/17/24 09:45 Temperature 99.0 F 12/17/24 09:45 Pulse Rate 62 12/17/24 12:30 Respiratory Rate 16 12/17/24 09:45 Blood Pressure 122/79 12/17/24 11:18 Pulse Oximetry 96 12/17/24 12:30 Oxygen Delivery Method Nasal Cannula 12/17/24 12:30 Oxygen Flow Rate 2 12/17/24 12:30 Medications Administered Medications: Discontinued Medications Generic Name Dose Route Start Last Admin Trade Name Freq PRN Reason Stop Dose Admin Morphine Sulfate 4 mg 12/17/24 10:28 12/17/24 10:45 Morphine 4 Mg/Ml Inj IVP 12/17/24 10:29 4 mg ONCE ONE Administration Ondansetron HCl 4 mg 12/17/24 10:28 12/17/24 10:45 Ondansetron 2 Mg/Ml Inj IVP 12/17/24 10:29 4 mg ONCE ONE Administration Medical Decision Making Lab Data Lab results reviewed: Yes I reviewed the patient's lab results Labs: Lab Results 12/17/24 Range/Units 10:40 WBC 6.10 (4.50-11.00) K/uL RBC 4.33 (4.30-5.90) m/uL Hgb 13.9 (13.5-17.5) gm/dL Hct 41.6 (37.0-53.0) % MCV 96 (80-100) fL MCH 32 (26-34) pg MCHC 33 (32-36) gm/dL RDW Coeff of Shimon 13.6 (11.5-15.5) % Plt Count 173 (140-440) K/uL Neut % (Auto) 74.3 H (42.0-72.0) % Lymph % (Auto) 14.9 L (20-44) % Irwin % (Auto) 8.7 (0.0-11.0) % Eos % (Auto) 1.6 (0.0-7.0) % Baso % (Auto) 0.2 (0.0-3.0) % Neut # (Auto) 4.50 (1.7-7.0) K/uL Lymph # (Auto) 0.90 (0.90-2.90) K/uL Irwin # (Auto) 0.50 (0.00-0.90) K/UL Eos # (Auto) 0.10 (0.00-0.50) K/uL Baso # (Auto) 0.01 (0.00-0.30) K/uL Abs Immat Gran (auto) 0.02 (0.00-0.30) K/uL Imm/Tot Granulo (auto) 0.3 % D-Dimer Quant (PE/DVT) < 0.27 (0.00-0.50) ug/ml Sodium 138 (135-149) mmol/L Potassium 3.8 (3.6-5.1) mmol/L Chloride 104 (96-114) mmol/L Carbon Dioxide 26 (20-32) mmol/L Anion Gap 8 (7-15) mEq/L BUN 30 (7-30) mg/dL Creatinine 1.0 (0.5-1.5) mg/dL Estimated Creat Clear 91.25 Estimated GFR 92 ml/min Glucose 95 (60-115) mg/dL Calcium 9.1 (8.4-10.6) mg/dL Total Bilirubin 0.4 (0.1-1.5) mg/dL Direct Bilirubin 0.2 (0.0-0.5) mg/dL AST 28 (12-35) U/L ALT 43 (4-50) U/L Alkaline Phosphatase 106 (40-150) U/L Troponin I < 0.01 L (0.01-0.04) ng/mL C-Reactive Protein < 0.5 L (0.5-1.0) mg/dL NT-Pro-B Natriuret Pep 25 pg/mL Total Protein 6.6 (6.0-8.3) g/dL Albumin 3.9 (3.3-5.0) g/dL Procalcitonin 0.05 (<0.50) ng/mL Imaging Data CT scan - chest: Attestation: I have reviewed the pertinent imaging results. Radiologist's impression: Patient: JOSE ROMERO Facility:?[facility] Patient ID:?[id number] Site Patient ID:?[id number]. Site :?[id number] Study:?CT-Chest Angio PE STUDY-12/17/2024 11:11:58 AM Ordering Physician:?Massimo Andujar Final Report: Indication: pleuritic r cp, fall 2 weeks ago, glioblastoma Technique: CT angiogram of the chest was performed for evaluation of pulmonary embolism. 95 mL of Isovue 370 intravenous contrast was administered. Comparison: 08/26/2024. Findings: CARDIOVASCULAR: Diagnostic quality: Contrast opacification of the pulmonary arterial circulation is adequate for assessment of pulmonary embolism. Study is not significantly limited by respiratory motion artifact. Pulmonary arteries: No filling defects to suggest pulmonary embolism. Not enlarged. Heart: No interventricular septal deviation. Normal in size. No significant coronary artery calcification. No significant valvular calcification. Pericardium: No pericardial effusion. Thoracic aorta: Mild calcification. Normal cervical branching. REMAINING CHEST: Medical devices: None. Thyroid: Normal. Lymph nodes: No supraclavicular, axillary, mediastinal, or hilar lymphadenopathy. Other mediastinal structures: No significant abnormality. Lung parenchyma: Mild bilateral dependent atelectasis. Airways: No significant abnormality. Pleura: No significant abnormality. Chest wall: Mild bilateral gynecomastia. Upper abdomen: Please see separately dictated same day CT. Musculoskeletal: Moderate degenerative changes of the visualized spine. Interval development of lytic lesion in the right posterolateral 8th rib with associated mildly displaced fracture (5/112). Additional lytic lesion is seen in the lateral right 8th rib (5/142). Lytic lesion is seen in the T9 vertebral body. Impression: 1. No acute pulmonary embolism. 2. Interval development of lytic lesions in the right 8th rib with associated mildly displaced fracture. Findings are concerning for metastasis with pathologic fracture. 3. Lytic lesion is seen in the T9 vertebral body, which is concerning for metastasis. Please note that all CT scans at this facility use dose modulation, iterative reconstruction, and/or weight-based dosing when appropriate to reduce radiation dose to as low as reasonably achievable. Dictated by Juan Salas MD @ 12/17/2024 11:28:57 AM (Electronic Signature) CT scan - abdomen: Attestation: I have reviewed the pertinent imaging results. Radiologist's impression: Patient: JOSE ROMERO Facility:?[facility] Patient ID:?[id number] Site Patient ID:?[id number]. Site :?[id number] Study:?CT-Abdomen/Pelvis W/ ISOVUE 370-12/17/2024 11:12:50 AM Ordering Physician:Sohan Andujar Final Report: INDICATION: r cp, fall 2 weeks ago, glioblastoma, ruq pain TECHNIQUE: CT of the abdomen and pelvis was obtained with 95 mL of Isovue 370 intravenous contrast. Please note that all CT scans at this facility use dose modulation, iterative reconstruction, and/or weight-based dosing when appropriate to reduce radiation dose to as low as reasonably achievable. COMPARISON: 12/22/2016. FINDINGS: Lower thorax: Please see separately dictated same day CT of the chest. Liver and biliary tree: Normal. Gallbladder: Normal. Spleen: Normal. Pancreas: Normal. Adrenal glands: Normal. Kidneys and ureters: No hydronephrosis. No obstructing renal calculi. Gastrointestinal tract: Moderate stool burden. No evidence of acute appendicitis. No evidence of bowel obstruction. Peritoneal cavity: Normal. Bladder: Mild wall thickening. Pelvic organs: Mildly enlarged prostate with associated calcifications. Vasculature: Mild calcification. Lymph nodes: Normal. Abdominal wall: Moderate fat containing periumbilical hernia. Musculoskeletal: Moderate degenerative changes of the visualized spine. Moderate leftward curvature of the lumbar spine. [id number] degenerative changes of the bilateral hips. Scattered lytic lesions are seen throughout the lumbar spine. 3.7 x 3.3 x 8.9 centimeter left paraspinous soft tissue lesion with scattered calcifications (). IMPRESSION: 1. Scattered lytic lesions are seen throughout the lumbar spine, which are concerning for metastatic disease. 2. 3.7 x 3.3 x 8.9 centimeter left paraspinous soft tissue lesion with scattered calcifications. This is concerning for a metastatic lesion. 3. Mild urinary bladder wall thickening. Consider correlation with urinalysis. Please note that all CT scans at this facility use dose modulation, iterative reconstruction, and/or weight-based dosing when appropriate to reduce radiation dose to as low as reasonably achievable. Dictated by Juan Salas MD @ 12/17/2024 11:43:28 AM (Electronic Signature) ECG Data Attestation: I personally reviewed and interpreted this ECG as follows: (Normal sinus rhythm, 72 beats per minute. No evidence of any ischemia or infarct.) Discharge Plan Discharge Clinical Impression: Pathological fracture of one rib Patient Disposition: Home, Self-Care Condition: Stable Instructions: Rib Fracture (ED) Additional Instructions: Use Tylenol 1000 mg 3 times a day baseline for pain. Can use the oxycodone per prescription for more severe pain. You can also supplement with ibuprofen per bottle directions but take with food to protect your stomach. The oxycodone can be constipating, use MiraLax 17 g daily an add in senna 1-2 tablets once to twice a day for a goal of a soft but formed bowel movement daily. Activity Level: Activity as Tolerated Prescriptions: New oxycodone 5 mg tablet 5 mg PO Q6H PRN (Reason: pain) Qty: 20 0RF No Action ibuprofen [Advil] 200 mg tablet 400 mg PO .4-6X/DAY PRN losartan 100 mg tablet 100 mg PO QDAY Qty: 90 3RF diazepam 5 mg tablet 5 mg PO BID PRN aluminum chloride 20 % solution 1 applic topical QHS levetiracetam 500 mg tablet 500 mg PO BID temozolomide 100 mg capsule 200 mg PO . DIREC Rx Instructions: must be taken on empty - 340 MG TOTAL - DAILY FOR 5 DAYS, THEN 23 DAYS OFF AND REPEAT temozolomide 140 mg capsule 140 mg PO DIRECTED Rx Instructions: must be taken on empty stomach - 340 MG TOTAL - 5 DAYS ON, 23 DAYS OFF AND REPEAT clotrimazole-betamethasone 1-0.05 % cream 1 applic topical BID PRN gabapentin 300 mg capsule 900 - 1,200 mg PO TID Qty: 900 1RF Rx Instructions: 900mg (3 capsules) morning and midday. 1200mg (4 capsules) HS naltrexone 50 mg tablet 50 mg PO QDAY Qty: 90 3RF fluoxetine 40 mg capsule 40 mg PO QDAY Qty: 90 1RF Follow Up/Referrals: Rodrigo Hughes MD [Primary Care Provider] - Stand Alone Forms: [facility] Info Instructions
--- NOTE | 2024-12-17 10:27 | CRLHL7_ITS ---
For Patients: As a result of the Century Cures Act, medical imaging exams and procedure reports are released immediately into your electronic medical record. You may view this report before your referring provider. If you have questions, please contact your health care provider. INDICATION: r cp, fall 2 weeks ago, glioblastoma, ruq pain TECHNIQUE: CT of the abdomen and pelvis was obtained with 95 mL of Isovue 370 intravenous contrast. Please note that all CT scans at this facility use dose modulation, iterative reconstruction, and/or weight-based dosing when appropriate to reduce radiation dose to as low as reasonably achievable. COMPARISON: 12/22/2016. FINDINGS: Lower thorax: Please see separately dictated same day CT of the chest. Liver and biliary tree: Normal. Gallbladder: Normal. Spleen: Normal. Pancreas: Normal. Adrenal glands: Normal. Kidneys and ureters: No hydronephrosis. No obstructing renal calculi. Gastrointestinal tract: Moderate stool burden. No evidence of acute appendicitis. No evidence of bowel obstruction. Peritoneal cavity: Normal. Bladder: Mild wall thickening. Pelvic organs: Mildly enlarged prostate with associated calcifications. Vasculature: Mild calcification. Lymph nodes: Normal. Abdominal wall: Moderate fat containing periumbilical hernia. Musculoskeletal: Moderate degenerative changes of the visualized spine. Moderate leftward curvature of the lumbar spine. [id number] degenerative changes of the bilateral hips. Scattered lytic lesions are seen throughout the lumbar spine. 3.7 x 3.3 x 8.9 centimeter left paraspinous soft tissue lesion with scattered calcifications (). IMPRESSION: 1. Scattered lytic lesions are seen throughout the lumbar spine, which are concerning for metastatic disease. 2. 3.7 x 3.3 x 8.9 centimeter left paraspinous soft tissue lesion with scattered calcifications. This is concerning for a metastatic lesion. 3. Mild urinary bladder wall thickening. Consider correlation with urinalysis. Please note that all CT scans at this facility use dose modulation, iterative reconstruction, and/or weight-based dosing when appropriate to reduce radiation dose to as low as reasonably achievable. Dictated by Juan Salas MD @ 12/17/2024 11:43:28 AM (Electronically Signed)
--- NOTE | 2024-12-17 10:27 | CRLHL7_ITS ---
For Patients: As a result of the Century Cures Act, medical imaging exams and procedure reports are released immediately into your electronic medical record. You may view this report before your referring provider. If you have questions, please contact your health care provider. Indication: pleuritic r cp, fall 2 weeks ago, glioblastoma Technique: CT angiogram of the chest was performed for evaluation of pulmonary embolism. 95 mL of Isovue 370 intravenous contrast was administered. Comparison: 08/26/2024. Findings: CARDIOVASCULAR: Diagnostic quality: Contrast opacification of the pulmonary arterial circulation is adequate for assessment of pulmonary embolism. Study is not significantly limited by respiratory motion artifact. Pulmonary arteries: No filling defects to suggest pulmonary embolism. Not enlarged. Heart: No interventricular septal deviation. Normal in size. No significant coronary artery calcification. No significant valvular calcification. Pericardium: No pericardial effusion. Thoracic aorta: Mild calcification. Normal cervical branching. REMAINING CHEST: Medical devices: None. Thyroid: Normal. Lymph nodes: No supraclavicular, axillary, mediastinal, or hilar lymphadenopathy. Other mediastinal structures: No significant abnormality. Lung parenchyma: Mild bilateral dependent atelectasis. Airways: No significant abnormality. Pleura: No significant abnormality. Chest wall: Mild bilateral gynecomastia. Upper abdomen: Please see separately dictated same day CT. Musculoskeletal: Moderate degenerative changes of the visualized spine. Interval development of lytic lesion in the right posterolateral 8th rib with associated mildly displaced fracture (5/112). Additional lytic lesion is seen in the lateral right 8th rib (5/142). Lytic lesion is seen in the T9 vertebral body. Impression: 1. No acute pulmonary embolism. 2. Interval development of lytic lesions in the right 8th rib with associated mildly displaced fracture. Findings are concerning for metastasis with pathologic fracture. 3. Lytic lesion is seen in the T9 vertebral body, which is concerning for metastasis. Please note that all CT scans at this facility use dose modulation, iterative reconstruction, and/or weight-based dosing when appropriate to reduce radiation dose to as low as reasonably achievable. Dictated by Juan Salas MD @ 12/17/2024 11:28:57 AM (Electronically Signed)
--- OUTSIDE RECORDS SUMMARY | 2024-12-17 10:37 | XMS_ITS | Data Portability ---
Author Organization [place] [facility] _[place] Address [address] [place] [address] Assessment No assessment recorded. Plan of Treatment Reminders Order Date Submit Date Provider Last Modified By Organization Details Last Modified Time Details Appointments None recorded. Lab None recorded. Referral None recorded. Procedures bladder scan (PROC) 2023 024 [email or web address] 9 [facility], [address], [address], [place], [address], 14:14:58 Surgeries None recorded. Imaging None recorded. Medication Orders solifenacin 10 mg tablet 2023 024 [id number], [address] [facility] [place], [place], [phone], 14:26:01 Patient TargetsNo targets recorded. Patient Instructions Encounter Date Encounter Id Patient Instructions Last Modified By Organization Details Last Modified Time 07/30/2024 [id number] will try solifenacin and rtc 6 weeks. Not available 07/30/2024 14:26:59 Reason for Referral None Reported. Results Created Date Observation Date Name Description Value Unit Range Abnormal Flag Note LastModifiedBy Organization Detail LastModifiedTime 07/30/20 24 07/30/2024 bladd er scan (PROC ) Volume (in mL) 16 ml Not Available [facility] [address], [place], [address], 07/22/2024 14:00:28 Result Notes None recorded. Problems Name Problem SNOMED Code Status Onset Date Resolution Date Notes Provider Name and Address Organization Details Recorded Time Urgent desire to urinate [id number] Active 2023 Derrick Hodge MD [address] [place] [address],[address], [place], [address], [facility] 4 14:25:07 Incontinence 58616460 Active 2023 Derrick Hodge MD [address] [place] [address],[address], [place], [address], [facility] 4 14:25:08 Problem Notes None recorded. Procedures Surgical History Date Name Laterality Status Provider Name and Address Organization Details Recorded Time 4 Bladder Scan cancelled [facility] 08/22/2024 16:38:30 Bladder Scan completed Derrick Hodge MD [address] [place] [address],[address] [place] [address], [phone], [facility] 07/30/2024 14:14:27 destruction of brain tumor completed Derrick Hodge MD [address] [place] [address],[address], [place], [address], [facility] 07/30/2024 14:11:23 Imaging Results None recorded. Procedure [...] Not Available No t Available amoxicillin 875 mg-potkatharineiu m clavulanate 125 mg tablet TAKE 1 [...] active Not Available Not Available Not Available [facility] ODT 75 mg disintegrat ing tablet DISSOLVE 1 TABLET ON THE TONGUE ONCE DAILY NEEDED FOR HEADACHE active Not Available Not Available No t Available Vitals Date Recorded Body height Provider Name an d Address Organization Details Last Updated DateTime 07/30/2024 180.34 cm Derrick Hodge MD [address] [place] [address], [phone] [place] [address] Urolog 07/30/2024 14:06:53 Date Recorded Body mass index (BMI) Body weight Provider Name and Address Organization Details Last Updated DateTime 07/30/2024 32.8 kg/m2 822237.21 g Derrick Hodge MD [address] [place] [address], [phone] [place] [address] Urology 07/30/2024 14:07:09 Social History Question Answer Notes LastModified by Organizat ion Details LastModified Time Tobacco Smoking Status Never Smoker Derrick Hodge MD [address] [place] [address], [phone], [facility] 07/30/2024 14:10:43 What Is Your Level Of Alcohol Consumption? Occasional Information not available 07/30/2024 What Is Your Level Of Caffeine Consumption? Occasional [email or web address] Information not available 07/30/2024 What Was The Date Of Your Most Recent Tobacco Screening? 07/30/2024 [email or web address] Information not available 07/30/2024 Have You Ever Been Counseled For Unhealthy Alcohol Use? No [email or web address] Information not available 07/30/2024 Do You Use Any Illicit Or Recreational Drugs? No [email or web address] Information not available 07/30/2024 Sex: Unknown Functional Status None recorded. Mental Status None recorded. Family History Relationship Description Onset Age of this Age Resolved Age Notes LastModified by Organization Details LastModified Time Father Hernia repair [email or web address] Not available 07/30 14:10:16 Medical History Condition Response Diabetes N Sexually Transmitted Infection N Bleeding Disorder N Other N High Blood Pressure Y Kidney Stones N Cancer Y Lung Disease N Depression Y High Cholesterol N GERD/Acid Reflux N Heart Disease N Past Encounters Encounter ID Performer Location Encounter Start Date Encounter Closed Date Diagnosis/Indication Diagnosis SNOMED-CT Code Diagnosis ICD10 Code Diagnosis Note [id number] [facility] [address] [place] [address] 07/30/2024 14:01:11 07/31/2024 10:57:56 Incontinence 69016098 R32 dribbling due to thich SP fat pad Urgent barbra maeve to urinate 75936326 R39.15 Health Concerns Section Related Observation LastModified [...] scan shows 16ml today. Derrick Hodge MD [address] [facility],[address], [place], [address], [facility] 07/30/2024 14:27:20
[2024-12-17 10:45] LABS: Basophils Absolute Auto 0.01 K/uL (0.00-0.30); Basophils Percent Auto 0.2 % (0.0-3.0); Eosinophils Percent Auto 1.6 % (0.0-7.0); Hematocrit 41.6 % (37.0-53.0); Hemoglobin* 13.9 gm/dL (13.5-17.5); Immature Granulocytes Abs Auto 0.02 K/uL (0.00-0.30); Immature Granulocytes Pct Auto 0.3 %; Lymphocytes Percent Auto 14.9 % (20-44); Mean Corpuscular HGB Conc 33 gm/dL (32-36); Mean Corpuscular Hemoglobin 32 pg (26-34); Mean Corpuscular Volume 96 fL (80-100); Monocytes Percent Auto 8.7 % (0.0-11.0); Neutrophils Percent Auto 74.3 % (42.0-72.0); Platelet Count* 173 K/uL (140-440); RDW Coefficient of Variation % 13.6 % (11.5-15.5); Red Blood Count 4.33 m/uL (4.30-5.90)
[2024-12-17] MEDS: ONDANSETRON 2 MG/ML inj 4 MG IVP (10:45)
[2024-12-17] MEDS: MORPHINE 4 MG/ML INJ IVP (10:45)
[2024-12-17 10:53] LABS: Slide Review Reflex No
[2024-12-17 11:10] LABS: D Dimer Quantitative* < 0.27 ug/ml (0.00-0.50)
[2024-12-17 11:15] LABS: Albumin* 3.9 g/dL (3.3-5.0); Chloride* 104 mmol/L (96-114)
[2024-12-17 11:16] LABS: Potassium* 3.8 mmol/L (3.6-5.1); Sodium* 138 mmol/L (135-149)
[2024-12-17 11:18] LABS: Alkaline Phosphatase* 106 U/L (40-150); Anion Gap 8 mEq/L (7-15); Aspartate Amino Transferase* 28 U/L (12-35); Bilirubin Direct* 0.2 mg/dL (0.0-0.5); Bilirubin Total* 0.4 mg/dL (0.1-1.5); Carbon Dioxide* 26 mmol/L (20-32); Est. Creatinine Clearance* 91.25; Estimated Glomerular Filt Rate 92 ml/min; Total Protein* 6.6 g/dL (6.0-8.3)
[2024-12-17 11:19] LABS: Alanine Aminotransferase* 43 U/L (4-50); Blood Urea Nitrogen* 30 mg/dL (7-30); Calcium* 9.1 mg/dL (8.4-10.6); Glucose* 95 mg/dL (60-115)
[2024-12-17 11:27] LABS: C Reactive Protein* < 0.5 mg/dL (0.5-1.0)
[2024-12-17 11:29] LABS: NT Pro B Type NatriureticPept* 25 pg/mL
[2024-12-17 11:32] LABS: Troponin I* < 0.01 ng/mL (0.01-0.04)
[2024-12-17 11:35] LABS: Procalcitonin* 0.05 ng/mL (<0.50)
== END 2024-12-17 13:06 | disposition home or self-care (01) ==
PROVIDERS: Emergency Provider Family Medicine; PCP Family Medicine
DX: S22.31XA Fracture of one rib, right side, initial encounter for closed fracture (principal); W19.XXXA Unspecified fall, initial encounter; C71.0 Malignant neoplasm of cerebrum, except lobes and ventricles
CPT/HCPCS: 36415; 71275; 74177; 80053; 82248; 83880; 84145; 84484; 85025; 85379; 86140; 93005; 94761; 96374; 96375; 99285; J2270; J2405; Q9967